=== PATIENT | male | born 1955 | race Caucasian/White ===

== ENCOUNTER 2017-02-25 06:05 | Emergency (ER) | payer OTHER ==
[~2017-02-25] VITALS: Ht 182.9 cm; Wt 121.8 kg
[~2017-02-25 06:05] MED LIST: ABL10 PO; ALPR-411 PO; CARB200T PO; EFFSR150 PO; ENAL10TA PO; SIMV20TA2 PO; ZNTT/150 PO
[2017-02-25 06:08] VITALS: TEMP 36.7; Ht 182.9 cm; Wt 121.8 kg
[2017-02-25] MEDS ORDERED: SODIUM CHLORIDE 0.9% 1000ML 1,000 ML IV STA (06:14)
[2017-02-25] MEDS ORDERED: ONDANSETRON INJ 2 MG/ML 2 ML VIAL IV STA (06:14)
[2017-02-25 06:20] VITALS: O2SAT 95
--- NOTE | 2017-02-25 06:20 | EMERGENCY ROOM VISIT NOTE ---
History Report prepared by Valeria: Benedicto Dover Under the Supervision of: Dr. Patrice Reese M.D. First contact with patient: 06:08 Chief Complaint: OTHER COMPLAINT Stated Complaint: NAUSEA/VOMITING History of Present Illness The patient is a 61 year old male who presents to the Emergency Room with complaints of nausea that began a couple of days ago. 5 days ago, the patient ran out of his psychiatric medications. He could not get them refilled because he could not get to his appointment, and his psychiatrist could not refill them for liability reasons. Because of the nausea, he has not been eating much over these recent days. He has been having episodes of vomiting associated with his nausea. He is having some mild abdominal pain with one episode of possible hematemesis vs tea that he had been drinking. He has a past medical history of seizures--he takes Tegretol regularly for his seizures. He also has a history of hypertension. He notes that he had thought about suicide a couple of days ago , but he did not follow through with or make a plan. He states if he gets to his appointment and medications, he will not need further mental health treatment. He denies any other symptoms. Of note, the patient has been taking all of his other meds--he only ran out of his psychiatric meds. Source of History: patient Onset: a couple of days ago Position: other (GI) Symptom Intensity: moderate Quality: other (Nausea) Timing: constant Associated Symptoms: + vomiting, + abdominal pain Note: He denies any other abnormal symptoms. Review of Systems See HPI for pertinent positives & negatives. A total of 10 systems reviewed and were otherwise negative. Past Medical & Surgical Medical Problems: (1) Heart disease (2) High blood pressure Family History Cancer FHx: gallbladder disease Heart disease Social History Smoking Status: Current Every Day Smoker Alcohol Use: none Drug Use: none Marital Status: single Occupation Status: unemployed Current/Historical Medications Scheduled Aripiprazole (Abilify), 10 MG PO DAILY Carbamazepine (Tegretol), 600 MG PO AMPM Enalapril Maleate (Vasotec), 10 MG PO DAILY Ranitidine (Zantac), 150 MG PO AMHS Simvastatin (Zocor), 20 MG PO QPM Venlafaxine Hcl (Venlafaxine Hcl Er), 150 MG PO DAILY Scheduled PRN Alprazolam (Xanax), 0.5 MG PO BID PRN for Anxiety Allergies Coded Allergies: Loxapine (Verified Allergy, Unknown, 02/25/17) Uncoded Allergies: ANTIPSYCHOTICS (Allergy, Unknown, 08/24/09) Physical Exam Vital Signs Date Time Temp Pulse Resp B/P (MAP) Pulse Ox O2 Delivery O2 Flow Rate FiO2 02/25/17 06:20 95 Room Air 02/25/17 06:11 83 02/25/17 06:08 36.7 82 18 177/102 97 Room Air Physical Exam GENERAL: Patient is in no acute distress. HEENT: No acute trauma, normocephalic atraumatic, mucous membranes moist, no nasal congestion, no scleral icterus. NECK: No stridor, no adenopathy, no meningismus, trachea is midline. LUNGS: Clear to auscultation bilaterally, no wheeze, no rhonchi, breath sounds equal. HEART: Without murmurs gallops or rubs, regular rate and rhythm. ABDOMEN: Soft, nontender, bowel sounds positive, no hernias, no peritonitis. EXTREMITIES: No cyanosis or edema, full range of motion of all the joints without pain or difficulty, no signs for acute trauma. NEUROLOGIC: Oriented x 3, no acute motor or sensory deficits, no focal weakness. SKIN: No rash, no jaundice, no diaphoresis. PSYCH: Cooperative and voluntary. Denies active suicidal ideation or plan. Normal affect. Medical Decision & Procedures ER Provider Diagnostic Interpretation: Radiology results as stated below per my review and radiologist interpretation: CHEST X-RAY 1 VIEW: No mediastinal widening, pneumonia, or pneumothorax. No free air. He has what appears to be a hiatal hernia. Per me Laboratory Results Test 02/25/17 06:30 Laboratory results reviewed by me. Medications Administered Medications (Trade) Dose Ordered Sig/Jong Route Start Time Stop Time Status Last Admin Dose Admin Ondansetron HCl (Zofran Inj) 4 mg NOW STAT IV 02/25/17 06:14 02/25/17 06:16 DC 02/25/17 06:28 4 MG Sodium Chloride 1,000 ml @ 999 mls/hr Q1H1M STAT IV 02/25/17 06:14 02/25/17 07:14 02/25/17 06:28 999 MLS/HR ECG Indication: nausea Rate (beats per minute): 78 Rhythm: sinus rhythm Findings: 1st degree AV block, no acute ischemic change, no ectopy, other (Old inferior infarct) ED Course 0608: The patient was evaluated in room A2. A complete history and physical exam was performed. 0614: Ordered Sodium Chloride 1000 ml @ 999 mls/hr IV, Zofran Inj 4 mg IV 06: Ordered Venlafaxine HCl 150 mg PO, Zocor Tab 20 mg PO, Vasotec Tab 10 mg PO, Abilify Tab 10 mg PO 0630: Ordered Ranitidine HCl 150 mg PO, Tegretol Tab 600 mg PO 0700: The patient was signed out to Dr. Balderas at the change in shifts. Medical Decision Differential diagnosis includes but is not limited to dehydration, electrolyte imbalance, anemia, missed medications, infection, and GI bleeding. The patient presents to the emergency room by ambulance for vomiting. He states he has not taken his psychiatric medications in 4 days and believes this has led to his current issue. He does not have any real abdominal pain. He has not had fever or chills, cough or cold. He has no plan to harm himself. He does not want to stay in the psychiatric portion of the hospital. The patient would like his normal psychiatric meds and something to eat. He has an appointment later today at around 10:30 to be seen by psychiatry. He would like to stay in the emergency room and then go to the psychiatric appointment. The patient admits to some dark emesis after he drank tea, he was not sure if the dark vomit may have been bloody vomitus or possibly just regurgitated tea. On exam, the patient's lungs are clear, his heart is without any murmurs. The abdomen is soft and nontender. He is not febrile or toxic in appearance. Some basic laboratory tests and a chest x-ray were ordered. Chest film shows a hiatal hernia, no pneumonia or pneumothorax. There is no free air. Laboratory tests are pending. 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 The patient was ordered for all of his typical morning medications. He received IV Zofran and IV saline. At this point, the case is being assumed by Dr. Balderas, he has assumed care at the change of shift. Please see his notes for the laboratory results and the disposition/plan. If the patient does well, if his workup is benign, I suspect he can be discharged to see his psychiatrist as scheduled later this morning. Medication Reconcilliation Current Medication List: was personally reviewed by me Blood Pressure Screening Patient's blood pressure: Elevated blood pressure Blood pressure disposition: Referred to PCP Impression Primary Impression: Vomiting Additional Impression: Noncompliance with medication regimen Scribe Attestation The scribe's documentation has been prepared under my direction and personally reviewed by me in its entirety. I confirm that the note above accurately reflects all work, treatment, procedures, and medical decision making performed by me. Departure Information Dispostion Still a Patient Referrals Noe Barros M.D. (PCP) Patient Instructions My [facility] Problem Qualifiers
[2017-02-25] MEDS ORDERED: ENALAPRIL MALEATE 10 MG TAB PO STA (06:29)
[2017-02-25] MEDS ORDERED: ARIPIprazole TAB 10 MG TAB PO STA (06:29)
[2017-02-25] MEDS ORDERED: SIMVASTATIN 20 MG TAB PO STA (06:29)
[2017-02-25] MEDS ORDERED: VENLAFAXINE HCL XR 150 MG CAPXR PO STA (06:29)
[2017-02-25] MEDS ORDERED: CARBAMAZEPINE 200 MG TAB PO ONE (06:30)
[2017-02-25] MEDS ORDERED: RANITIDINE HCL 150 MG TAB PO ONE (06:30)
[2017-02-25] MEDS ORDERED: VENL150T33 PO (06:41)
--- NOTE | 2017-02-25 06:44 | DIAGNOSTIC IMAGING REPORT ---
CHEST ONE VIEW PORTABLE CLINICAL HISTORY: EVALUATE ALTERED MENTAL STATUS/WEAKNESS COMPARISON STUDY: No previous studies for comparison. FINDINGS: Mild cardia megaly. Fixed hernia. Mild fullness mid to superior mediastinum possibly technical. Lungs are clear. IMPRESSION: Mild cardiomegaly. Hiatal hernia. The above report was generated using voice recognition software. It may contain grammatical, syntax or spelling errors. Electronically signed by: Peterson Alexandra M.D. 02/25/2017 6:43 AM Dictated Date/Time: 02/25/2017 6:42 AM
[2017-02-25 06:47] LABS: BASO % 0.2 %; BASO ABS # 0.01 K/uL (0-0.2); COMPLETE YES; EOS % 0.4 %; HEMATOCRIT 36.7 % (42-52); IG% 0.2 %; LYMPH % 8.2 %; LYMPH ABS # 0.44 K/uL (1.2-3.4); MEAN CELL VOLUME 95.6 fL (80-100); MEAN CORPUSCULAR HEMOGLOBIN 34.1 pg (25-34); MEAN CORPUSCULAR HGB CONC 35.7 g/dl (32-36); MEAN PLATELET VOLUME 9.2 fL (7.4-10.4); MONO % 6.5 %; NEUT % 84.5 %; PLATELET COUNT 169 K/uL (130-400); RED BLOOD COUNT 3.84 M/uL (4.7-6.1); WHITE BLOOD COUNT 5.36 K/uL (4.8-10.8)
--- NOTE | 2017-02-25 07:01 | EMERGENCY ROOM VISIT NOTE ---
History First contact with patient: 07:07 Chief Complaint: NAUSEA Stated Complaint: NAUSEA/VOMITING Nursing Triage Summary: see triage note History of Present Illness The patient is a 61 year old male who presents to the Emergency Room with complaints of nausea, vomiting and not taking his psych medications. Patient was signed out to me following being completely evaluated by Dr. Reese. Per signout this man presented to the ER for nausea and vomiting. He has no abdominal pain. He was anxious and concerned about getting back on track with taking his psych medications. Dr. Reese gave him all his medications. He was able to eat without difficulty. He does admit that he vomited tea which was dark in nature. On my exam he has a completely benign abdomen. He has not complaints and absolutely no tenderness on exam. He wants to have a Review of Systems See HPI for pertinent positives & negatives. A total of 10 systems reviewed and were otherwise negative. Past Medical/Surgical History Medical Problems: (1) Heart disease (2) High blood pressure Family History Cancer FHx: gallbladder disease Heart disease Social History Smoking Status: Current Every Day Smoker Alcohol Use: none Drug Use: none Marital Status: single Occupation Status: unemployed Current/Historical Medications Scheduled Aripiprazole (Abilify), 10 MG PO DAILY Carbamazepine (Tegretol), 600 MG PO AMPM Enalapril Maleate (Vasotec), 10 MG PO DAILY Ranitidine (Zantac), 150 MG PO AMHS Simvastatin (Zocor), 20 MG PO QPM Venlafaxine Hcl (Venlafaxine Hcl Er), 150 MG PO DAILY Scheduled PRN Alprazolam (Xanax), 0.5 MG PO BID PRN for Anxiety Physical Exam Vital Signs Date Time Temp Pulse Resp B/P (MAP) Pulse Ox O2 Delivery O2 Flow Rate FiO2 02/25/17 08:01 89 18 179/103 99 Room Air 02/25/17 07:29 88 18 178/106 99 Room Air 02/25/17 06:20 95 Room Air 02/25/17 06:11 83 02/25/17 06:08 36.7 82 18 177/102 97 Room Air Physical Exam GENERAL: Disheveled, no acute distress nontoxic EYE EXAM: normal conjunctiva OROPHARYNX: no exudate, no erythema, lips, buccal mucosa, and tongue normal and mucous membranes are moist NECK: supple, no nuchal rigidity, no adenopathy, non-tender LUNGS: Clear to auscultation. Normal chest wall mechanics HEART: no murmurs, S1 normal and S2 normal ABDOMEN: abdomen soft, non-tender, normo-active bowel sounds, no masses, no rebound or guarding. UPPER EXTREMITIES: upper extremities are grossly normal. LOWER EXTREMITIES: No pitting edema. NEURO EXAM: Normal sensorium Medical Decision & Procedures Laboratory Results 02/25/17 06:30 Red Blood Count 3.84, Mean Corpuscular Volume 95.6, Mean Corpuscular Hemoglobin 34.1, Mean Corpuscular Hemoglobin Concent 35.7, Mean Platelet Volume 9.2, Neutrophils (%) (Auto) 84.5, Lymphocytes (%) (Auto) 8.2, Monocytes (%) (Auto) 6.5, Eosinophils (%) (Auto) 0.4, Basophils (%) (Auto) 0.2, Neutrophils # (Auto) 4.53, Lymphocytes # (Auto) 0.44, Monocytes # (Auto) 0.35, Eosinophils # (Auto) 0.02, Basophils # (Auto) 0.01 02/25/17 06:30 Test 02/25/17 06:30 02/25/17 07:28 White Blood Count 5.36 K/uL (4.8-10.8) Red Blood Count 3.84 M/uL (4.7-6.1) Hemoglobin 13.1 g/dL (14.0-18.0) Hematocrit 36.7 % (42-52) Mean Corpuscular Volume 95.6 fL (80-100) Mean Corpuscular Hemoglobin 34.1 pg (25-34) Mean Corpuscular Hemoglobin Concent 35.7 g/dl (32-36) Platelet Count 169 K/uL (130-400) Mean Platelet Volume 9.2 fL (7.4-10.4) Neutrophils (%) (Auto) 84.5 % Lymphocytes (%) (Auto) 8.2 % Monocytes (%) (Auto) 6.5 % Eosinophils (%) (Auto) 0.4 % Basophils (%) (Auto) 0.2 % Neutrophils # (Auto) 4.53 K/uL (1.4-6.5) Lymphocytes # (Auto) 0.44 K/uL (1.2-3.4) Monocytes # (Auto) 0.35 K/uL (0.11-0.59) Eosinophils # (Auto) 0.02 K/uL (0-0.5) Basophils # (Auto) 0.01 K/uL (0-0.2) RDW Standard Deviation 45.7 fL (36.4-46.3) RDW Coefficient of Variation 13.2 % (11.5-14.5) Immature Granulocyte % (Auto) 0.2 % Immature Granulocyte # (Auto) 0.01 K/uL (0.00-0.02) Anion Gap 6.0 mmol/L (3-11) Est Creatinine Clear Calc Drug Dose 124.6 ml/min Estimated GFR () 109.8 Estimated GFR (Non- 94.7 BUN/Creatinine Ratio 9.2 (10-20) Calcium Level 8.1 mg/dl (8.5-10.1) Total Bilirubin 0.6 mg/dl (0.2-1) Aspartate Amino Transf (AST/SGOT) 12 U/L (15-37) Alanine Aminotransferase (ALT/SGPT) 26 U/L (12-78) Alkaline Phosphatase 109 U/L (45-117) Total Protein 6.7 gm/dl (6.4-8.2) Albumin 3.7 gm/dl (3.4-5.0) Globulin 3.0 gm/dl (2.5-4.0) Albumin/Globulin Ratio 1.2 (0.9-2) Thyroid Stimulating Hormone (TSH) 1.820 uIu/ml (0.300-4.500) Carbamazepine (Tegretol) Level 12.9 mcg/ml (4-12) Urine Color DK YELLOW Urine Appearance CLOUDY (CLEAR) Urine pH 5.0 (4.5-7.5) Urine Specific [place] 1.029 (1.000-1.030) Urine Protein 1+ (NEG) Urine Glucose (UA) NEG (NEG) Urine Ketones TRACE (NEG) Urine Occult Blood TRACE (NEG) Urine Nitrite NEG (NEG) Urine Bilirubin NEG (NEG) Urine Urobilinogen NEG (NEG) Urine Leukocyte Esterase TRACE (NEG) Urine WBC (Auto) 1-5 /hpf (0-5) Urine RBC (Auto) 5-10 /hpf (0-4) Urine Hyaline Casts (Auto) 10-30 /lpf (0-5) Urine Epithelial Cells (Auto) 20-30 /lpf (0-5) Urine Bacteria (Auto) NEG (NEG) Medications Administered Medications (Trade) Dose Ordered Sig/Jong Route Start Time Stop Time Status Last Admin Dose Admin Ondansetron HCl (Zofran Inj) 4 mg NOW STAT IV 02/25/17 06:14 02/25/17 06:16 DC 02/25/17 06:28 4 MG Sodium Chloride 1,000 ml @ 999 mls/hr Q1H1M STAT IV 02/25/17 06:14 02/25/17 07:14 DC 02/25/17 06:28 999 MLS/HR Aripiprazole (Abilify Tab) 10 mg NOW STAT PO 02/25/17 06:29 02/25/17 06:33 DC 02/25/17 06:48 10 MG Carbamazepine (Tegretol Tab) 600 mg NOW ONCE PO 02/25/17 06:30 02/25/17 06:34 DC 02/25/17 06:47 600 MG Enalapril Maleate (Vasotec Tab) 10 mg NOW STAT PO 02/25/17 06:29 02/25/17 06:33 DC 02/25/17 06:47 10 MG Ranitidine HCl (zANTac TAB) 150 mg NOW ONCE PO 02/25/17 06:30 02/25/17 06:34 DC 02/25/17 06:47 150 MG Simvastatin (Zocor Tab) 20 mg NOW STAT PO 02/25/17 06:29 02/25/17 06:34 ID 02/25/17 06:48 20 MG Venlafaxine HCl (effeXOR EXTENDED REL CAP) 150 mg NOW STAT PO 02/25/17 06:29 02/25/17 06:34 DC 02/25/17 06:47 150 MG Potassium Chloride (Klor-Con M10) 40 meq NOW STAT PO 02/25/17 07:07 02/25/17 07:09 DC 02/25/17 07:28 40 MEQ ED Course Patient is a 61-year-old male who was signed out to me by Dr. Reese prior to results of lab work. The current and tentative plan per Dr. Reese is to observe this gentleman until he is able to obtain a ride to see a psychiatrist at 10:30. On my exam patient has absolutely no abdominal tenderness. CBC was unremarkable. Medical Decision Differential diagnoses includes but is not limited to gastritis, peptic ulcer disease, GERD, gallbladder disease, pancreatitis, small bowel obstruction, acute coronary syndrome, pericarditis, ischemic bowel, irritable bowel disease, irritable bowel syndrome, appendicitis, diverticulitis, malignancy, hernia, urinary tract infection, torsion, /ectopic (if female), perforation, trauma, infectious. Patient is a 61-year-old male who was signed out to me by Dr. Reese prior to results of lab work. The current and tentative plan per Dr. Reese is to observe this gentleman until he is able to obtain a ride to see a psychiatrist at 10:30. On my exam patient has absolutely no abdominal tenderness. History of previous cholecystectomy and appendectomy. CBC was unremarkable. BMP shows K of 3.1. K was repeated. UA was unremarkable for infection. Tegretol was slightly elevated at 12.9. He are a took his morning dose of this medication today. Discussed with Dr. Ascencio from [facility] neurology. He recommends following up with them as an outpatient for dosing adjustments with Vee Rose as she is the one who follows this patient. Patient denies any double vision. I do not believe that Tegretol as the cause of the symptoms especially since he is keeping liquids and food down at this time. Discussed with Pt concerning signs and symptoms to watch out for. Pt was instructed to follow up with their PCP and discussed with the patient their option to return to the ED at anytime for persistent or worsening symptoms. The appropriate anticipatory guidance and out-patient management, including indications for return to the emergency department, were explained at length to the patient and understood. Consults Time Called: 720 Consulting Physician: Dr. Ascencio Recommends follow-up as an outpatient within 24 hours for dosing adjustments. Impression Primary Impression: Vomiting Additional Impressions: Noncompliance with medication regimen Hypokalemia Elevated Tegretol level Departure Information Dispostion Still a Patient Referrals Noe Barros M.D. (PCP) Patient Instructions My [facility] Problem Qualifiers Primary Impression: Vomiting Vomiting type: unspecified Vomiting Intractability: unspecified Nausea presence: with nausea Qualified Codes: R11.2 - Nausea with vomiting, unspecified
[2017-02-25 07:04] LABS: BUN/CREATININE RATIO 9.2 (10-20); CALCIUM 8.1 mg/dl (8.5-10.1); CREATININE 0.85 mg/dl (0.60-1.40); POTASSIUM 3.1 mmol/L (3.5-5.1)
[2017-02-25] MEDS ORDERED: POTASSIUM CHLORIDE 10 MEQ TABCR PO STA (07:07)
[2017-02-25 07:15] LABS: ALB/GLOB RATIO 1.2 (0.9-2); THYROID STIMULATING HORMONE 1.82 uIu/ml (0.300-4.500)
[2017-02-25 07:52] LABS: URINE APPEARANCE CLOUDY (CLEAR); URINE COLOR DK YELLOW; URINE EPITHELIAL CELL AUTO 20-30 /lpf (0-5); URINE NITRITE NEG (NEG); URINE SPECIFIC GRAVITY 1.029 (1.000-1.030); UROBILINOGEN NEG (NEG); ZZUR CULT IF INDIC CLEAN CATCH NO
[2017-02-25 08:00] LABS: MANUAL MICROSCOPIC REQUIRED? NO; REVIEW REQ? NO; URINE BILIRUBIN NEG (NEG)
[2017-02-25 08:01] VITALS: BP 179/103; PULSE 89; O2SAT 99
== END 2017-02-25 08:18 | disposition home or self-care (01) ==
LOC: EDBD 06:05 → C.EDA 06:06
DX: R11.2 Nausea with vomiting, unspecified (principal); Z91.14 Patient's other noncompliance with medication regimen; E87.6 Hypokalemia; I51.9 Heart disease, unspecified; I10 Essential (primary) hypertension; F17.200 Nicotine dependence, unspecified, uncomplicated

== ENCOUNTER → 2017-04-01 | Outpatient (CLI) | payer OTHER ==
[~2017-04-01] MED LIST changes: -EFFSR150 PO; +VENL150T33 PO
[2017-04-01 18:02] LABS: BASO % 0.4 %; BASO ABS # 0.02 K/uL (0-0.2); COMPLETE YES; EOS % 0.6 %; HEMATOCRIT 39.4 % (42-52); IG% 0.7 %; LYMPH % 14.9 %; MEAN CELL VOLUME 99.2 fL (80-100); MEAN CORPUSCULAR HEMOGLOBIN 33.8 pg (25-34); MEAN PLATELET VOLUME 11.2 fL (7.4-10.4); MONO % 13.6 %; NEUT % 69.8 %; PLATELET COUNT 242 K/uL (130-400); RED BLOOD COUNT 3.97 M/uL (4.7-6.1); WHITE BLOOD COUNT 5.37 K/uL (4.8-10.8)
[2017-04-01 18:13] LABS: ALT/SGPT 22 U/L (12-78); BLOOD UREA NITROGEN 14 mg/dl (7-18); BUN/CREATININE RATIO 17.3 (10-20); CALCIUM 8.8 mg/dl (8.5-10.1); CARBON DIOXIDE 30 mmol/L (21-32); CHLORIDE 108 mmol/L (98-107); CHOLESTEROL 168 mg/dl (0-200); CREATININE 0.82 mg/dl (0.60-1.40); GLUCOSE 93 mg/dl (70-99); POTASSIUM 4.1 mmol/L (3.5-5.1); SODIUM 140 mmol/L (136-145); TRIGLYCERIDES 208 mg/dl (0-150); VERY LOW DENSITY LIPOPROT CALC 42 mg/dl
[2017-04-01 18:21] LABS: ALB/GLOB RATIO 1.2 (0.9-2); ALKALINE PHOSPHATASE 100 U/L (45-117); AST/SGOT 14 U/L (15-37); HDL CHOLESTEROL 56 mg/dl; LDL CHOLESTEROL CALCULATED 70 mg/dl
== END | disposition home or self-care (01) ==
LOC: C.LABBFT 13:56
PROVIDERS: ATTEND Physician Assistant Medical
DX: E78.5 Hyperlipidemia, unspecified (principal); E55.9 Vitamin D deficiency, unspecified

== ENCOUNTER 2017-09-30 16:09 | Observation (INO) | payer OTHER ==
[~2017-09-30] VITALS: Ht 180.3 cm; Wt 132.0 kg
[~2017-09-30 16:09] MED LIST changes: +RANI150T85 PO; -ZNTT/150 PO
[2017-09-30 16:29] LABS: BASO % 0.2 %; BASO ABS # 0.02 K/uL (0-0.2); EOS % 1.3 %; EOS ABS # 0.11 K/uL (0-0.5); HEMATOCRIT 39.1 % (42-52); HEMOGLOBIN 13.6 g/dL (14.0-18.0); IG# 0.02 K/uL (0.00-0.02); LYMPH % 11.6 %; LYMPH ABS # 1.02 K/uL (1.2-3.4); MEAN CORPUSCULAR HEMOGLOBIN 35.1 pg (25-34); MEAN CORPUSCULAR HGB CONC 34.8 g/dl (32-36); MEAN PLATELET VOLUME 9.8 fL (7.4-10.4); MONO % 12.1 %; MONO ABS # 1.06 K/uL (0.11-0.59); NEUT % 74.6 %; NEUT ABS # 6.56 K/uL (1.4-6.5); PLATELET COUNT 219 K/uL (130-400); RED CELL DISTRIBUTION WIDTH CV 13.2 % (11.5-14.5); RED CELL DISTRIBUTION WIDTH SD 48.7 fL (36.4-46.3); WHITE BLOOD COUNT 8.79 K/uL (4.8-10.8)
--- NOTE | 2017-09-30 16:29 | DIAGNOSTIC IMAGING REPORT ---
SINGLE VIEW CHEST CLINICAL HISTORY: Atypical chest pain. FINDINGS: An AP, portable, upright chest radiograph is compared to study dated 02/25/2017. The examination is degraded by portable technique and patient rotation. The heart is enlarged. The pulmonary vasculature is noncongested. A large hiatal hernia is identified. The lungs and pleural spaces are clear. No pneumothorax is seen. The bony thorax is grossly intact. IMPRESSION: 1. Cardiomegaly with no acute cardiopulmonary abnormality. 2. Hiatal hernia. Electronically signed by: Patrice Leonard M.D. 09/30/2017 4:27 PM Dictated Date/Time: 09/30/2017 4:27 PM
[2017-09-30 16:51] LABS: CALCIUM 8.2 mg/dl (8.5-10.1); CREATININE 1.01 mg/dl (0.60-1.40); POTASSIUM 3.8 mmol/L (3.5-5.1)
[2017-09-30] MEDS ORDERED: OPTIRAY 320 IV PRN (17:00)
--- NOTE | 2017-09-30 17:41 | DIAGNOSTIC IMAGING REPORT ---
CT ANGIOGRAM OF THE CHEST CLINICAL HISTORY: Atypical chest pain. COMPARISON STUDY: Chest x-ray dated 09/30/2017. TECHNIQUE: Following the IV administration of 93 cc of Optiray 320, CT angiogram of the chest was performed from the upper abdomen to the thoracic inlet utilizing the pulmonary embolus protocol. Images are reviewed in the axial, sagittal, and coronal planes. 3-D MIPS images are created and assessed. IV contrast was administered without complication. A dose lowering technique was utilized adhering to the principles of ALARA. CT DOSE: 708.11 mGy.cm FINDINGS: Thyroid: Imaged portions of the thyroid gland are normal in size and attenuation. Thoracic aorta: The thoracic aorta is normal in caliber and demonstrates standard 3-vessel arch anatomy. No dissection is seen. Pulmonary vasculature: The pulmonary trunk is normal in caliber. There are no filling defects identified in main, lobar, or segmental pulmonary branches to suggest pulmonary embolus. Heart: The heart is enlarged and without pericardial effusion. There are coronary artery calcifications. Lungs and pleural spaces: Evaluation of lung parenchyma is degraded by motion artifact. No airspace consolidation or pleural effusion is identified. The trachea and central airways are clear. Mediastinum: There is no mediastinal lymphadenopathy. Vani: Clear. Axillae: There is no axillary lymphadenopathy. Upper abdomen: There is a large hiatal hernia, with the majority the stomach located in the thoracic cavity. A 1.5 cm right adrenal nodule meets CT criteria for a fat-containing adenoma. Skeletal structures: The skeletal structures are osteopenic. Degenerative change is seen throughout the thoracic spine. No lytic or blastic bony lesions are seen. IMPRESSION: 1. There is no evidence of pulmonary embolus in the main, lobar, or segmental pulmonary arteries. 2. Cardiomegaly. 3. Large hiatal hernia. 4. Lungs are clear. 5. Additional findings as above. Electronically signed by: Patrice Leonard M.D. 09/30/2017 5:40 PM Dictated Date/Time: 09/30/2017 5:26 PM
--- NOTE | 2017-09-30 18:46 | History and Physical ---
History & Physical Date & Time of Service: Sep 30, 2017 at 18:41 Chief Complaint: Chest Pain Primary Care Physician: Noe Barros M.D. History of Present Illness Source: patient This is a 62 yo M with a PMHx of HTN, HLD, vitamin D deficiency and depression and remote smoking hx quit 1 year ago. The patient notes that he had acute onset of chest pain after racing thoughts/anxiety this morning around 11 AM. He says at that time he was sitting down trying to take a nap. At that time the patient called EMS, reports feeling much better after that point in time. He does he was administered 4 baby aspirin and 1 nitroglycerin spray and admit to feeling lightheaded and dizzy after the administration of nitroglycerin but that this quickly resolved. He denies any chest pain or pressure since that timeframe. The pt is speaking very rapidly during my interview- patient tells me that he has been off his psychiatric medication including Abilify 10 mg daily, Xanax 0.5 mg BID prn, and Effexor 150 mg QAM for about 2 weeks. The patient foll ows with Dr. Melendez in [place] but has been unable to keep his appointments due to not having a car anymore. He lives at home by himself. The patient notes that he has not had depressive symptoms over these past 2 weeks and chose to go off his medications on his own. He is also seeking a new psychiatrist because " Dr. Knapp will not fill my meds since I haven't made it to the appointments". He denies any homicidal or suicidal ideations. EKG reviewed, NRS no ST wave inversions or signs of ischemia Troponin initially is negative. D-dimer was elevated above 450, CT PE was completed by is negative. The patient does have a large hiatal hernia which was noted on chest x-ray and CT. Past Medical/Surgical History Medical Problems: (1) Chest pain (2) Depression (3) HLD (hyperlipidemia) (4) HTN (hypertension) (5) Noncompliance with medication regimen Family History Cancer FHx: gallbladder disease Heart disease Social History Smoking Status: Former Smoker Smokeless Tobacco Use: Yes Alcohol Use: occasionally Drug Use: none Marital Status: single Housing status: lives alone Occupational Status: unemployed Immunizations History of Influenza Vaccine: No History of Tetanus Vaccine?: Yes Tetanus Immunization Date: Dec 22, 2004 History of Pneumococcal: No History of Hepatitis B Vaccine: No Allergies Coded Allergies: Loxapine (Verified Allergy, Unknown, 09/30/17) Uncoded Allergies: ANTIPSYCHOTICS (Allergy, Unknown, 08/24/09) Home Medications Scheduled Aripiprazole (Abilify), 10 MG PO DAILY Carbamazepine (Tegretol), 600 MG PO AMPM Enalapril Maleate (Vasotec), 10 MG PO DAILY Ranitidine (Zantac), 150 MG PO AMHS Simvastatin (Zocor), 20 MG PO QPM Venlafaxine Hcl (Venlafaxine Hcl Er), 150 MG PO DAILY Scheduled PRN Alprazolam (Xanax), 0.5 MG PO BID PRN for Anxiety Review of Systems Constitutional: No fever, sweats or chills Eyes: No diplopia, no worsening or blurred vision ENT: normal hearing, no trouble swallowing Respiratory: No cough, sputum, dyspnea at rest or on exertion Cardiovascular: See HPI Abdomen: No pain, nausea, vomiting, diarrhea or constipation Musculoskeletal: No joint pain, calf pain, swelling Neurologic: No weakness, numbness/tingling, or balance problems Psychiatric: No anxiety + hx of depression, denies suicidal or homicidal ideations, see HPI Skin: No rash or itch Physical Exam Vital Signs Date Time Temp Pulse Resp B/P (MAP) Pulse Ox O2 Delivery O2 Flow Rate FiO2 09/30/17 16:31 95 Room Air 09/30/17 16:31 95 09/30/17 16:31 36.8 83 20 142/88 95 Room Air 09/30/17 16:17 85 General: awake, alert, no apparent distress, morbid obesity, unkempt appearance , rapid speech Head: Normocephalic, atraumatic ENT: PERRL, EOMI, no pharyngeal exudate, mucous membranes moist Chest: Nontender to palpation, clear to auscultation, on room air, no adventitious breath sounds Cardiac: Regular rate and rhythm, no murmur, JVD difficult to assess due to body habitus, normal peripheral pulses, good capillary refill Abdominal: NABS x 4 quadrants, soft, nontender to palpation, no rebound, guarding or tenderness Extremities: Normal inspection, no peripheral edema or erythema, calfs nontender to palpation Psych: Elevated mood, rapid speech, appears slightly anxious Neuro: AAO x 3, strength intact bilaterally and related 5/5, no motor deficits, speech is clear, no peripheral sensory deficits Skin: multiple lesions which are open on abdomen, multiple areas of scarring over extremities Diagnostics Laboratory Results Results Past 24 Hours Test 09/30/17 16:00 09/30/17 16:37 Range/Units White Blood Count 8.79 4.8-10.8 K/uL Red Blood Count 3.87 4.7-6.1 M/uL Hemoglobin 13.6 14.0-18.0 g/dL Hematocrit 39.1 42-52 % Mean Corpuscular Volume 101.0 80-100 fL Mean Corpuscular Hemoglobin 35.1 25-34 pg Mean Corpuscular Hemoglobin Concent 34.8 32-36 g/dl Platelet Count 219 130-400 K/uL Mean Platelet Volume 9.8 7.4-10.4 fL Neutrophils (%) (Auto) 74.6 % Lymphocytes (%) (Auto) 11.6 % Monocytes (%) (Auto) 12.1 % Eosinophils (%) (Auto) 1.3 % Basophils (%) (Auto) 0.2 % Neutrophils # (Auto) 6.56 1.4-6.5 K/uL Lymphocytes # (Auto) 1.02 1.2-3.4 K/uL Monocytes # (Auto) 1.06 0.11-0.59 K/uL Eosinophils # (Auto) 0.11 0-0.5 K/uL Basophils # (Auto) 0.02 0-0.2 K/uL RDW Standard Deviation 48.7 36.4-46.3 fL RDW Coefficient of Variation 13.2 11.5-14.5 % Immature Granulocyte % (Auto) 0.2 % Immature Granulocyte # (Auto) 0.02 0.00-0.02 K/uL Sodium Level 137 136-145 mmol/L Potassium Level 3.8 3.5-5.1 mmol/L Chloride Level 105 98-107 mmol/L Carbon Dioxide Level 22 21-32 mmol/L Anion Gap 10.0 3-11 mmol/L Blood Urea Nitrogen 13 7-18 mg/dl Creatinine 1.01 0.60-1.40 mg/dl Est Creatinine Clear Calc Drug Dose 100.8 ml/min Estimated GFR () 92.6 Estimated GFR (Non- 79.9 BUN/Creatinine Ratio 12.6 10-20 Random Glucose 91 70-99 mg/dl Calcium Level 8.2 8.5-10.1 mg/dl Bedside D-Dimer > 450 0-450 ng/mlFEU Bedside Troponin I < 0.030 0-0.045 ng/ml Diagnostic Radiology CT ANGIOGRAM OF THE CHEST CLINICAL HISTORY: Atypical chest pain. COMPARISON STUDY: Chest x-ray dated 09/30/2017. TECHNIQUE: Following the IV administration of 93 cc of Optiray 320, CT angiogram of the chest was performed from the upper abdomen to the thoracic inlet utilizing the pulmonary embolus protocol. Images are reviewed in the axial, sagittal, and coronal planes. 3-D MIPS images are created and assessed. IV contrast was administered without complication. A dose lowering technique was utilized adhering to the principles of ALARA. CT DOSE: 708.11 mGy.cm FINDINGS: Thyroid: Imaged portions of the thyroid gland are normal in size and attenuation. Thoracic aorta: The thoracic aorta is normal in caliber and demonstrates standard 3-vessel arch anatomy. No dissection is seen. Pulmonary vasculature: The pulmonary trunk is normal in caliber. There are no filling defects identified in main, lobar, or segmental pulmonary branches to suggest pulmonary embolus. Heart: The heart is enlarged and without pericardial effusion. There are coronary artery calcifications. Lungs and pleural spaces: Evaluation of lung parenchyma is degraded by motion artifact. No airspace consolidation or pleural effusion is identified. The trachea and central airways are clear. Mediastinum: There is no mediastinal lymphadenopathy. Vani: Clear. Axillae: There is no axillary lymphadenopathy. Upper abdomen: There is a large hiatal hernia, with the majority the stomach located in the thoracic cavity. A 1.5 cm right adrenal nodule meets CT criteria for a fat-containing adenoma. Skeletal structures: The skeletal structures are osteopenic. Degenerative change is seen throughout the thoracic spine. No lytic or blastic bony lesions are seen. IMPRESSION: 1. There is no evidence of pulmonary embolus in the main, lobar, or segmental pulmonary arteries. 2. Cardiomegaly. 3. Large hiatal hernia. 4. Lungs are clear. 5. Additional findings as above. Electronically signed by: Patrice Leonard M.D. 09/30/2017 5:40 PM Dictated Date/Time: 09/30/2017 5:26 PM The status of this report is Signed. SINGLE VIEW CHEST CLINICAL HISTORY: Atypical chest pain. FINDINGS: An AP, portable, upright chest radiograph is compared to study dated 02/25/2017. The examination is degraded by portable technique and patient rotation. The heart is enlarged. The pulmonary vasculature is noncongested. A large hiatal hernia is identified. The lungs and pleural spaces are clear. No pneumothorax is seen. The bony thorax is grossly intact. IMPRESSION: 1. Cardiomegaly with no acute cardiopulmonary abnormality. 2. Hiatal hernia. Electronically signed by: Patrice Leonard M.D. 09/30/2017 4:27 PM Dictated Date/Time: 09/30/2017 4:27 PM The status of this report is Signed. EKG Poor data quality, interpretation may be adversely affected Normal sinus rhythm Inferior infarct (cited on or before 24-NOV-2000) Abnormal ECG When compared with ECG of 25-FEB-2017 06:20, Nonspecific T wave abnormality has replaced inverted T waves in Inferior leads Vent. rate 86 BPM SD interval 208 ms QRS duration 104 ms QT/QTc 378/452 ms P-R-T axes 40 9 35 Impression Assessment and Plan 62 yo M with a PMHx of HTN, HLD, vitamin D deficiency and depression and remote smoking hx quit 1 year ago. The patient notes that he had acute onset of chest pain after racing thoughts/anxiety this morning around 11 AM. Chest pain rule out HTN HLD - Admit to telemetry for observation - Likely due to anxiety however cannot exclude cardiac involvement with resolvent of sx with nitroglycerin and aspirin. - CXR reviewed- negative. - Ddimer elevated but CTPE negative - possible that hiatal hernia also involved with sx. - Follow serial cardiac biomarkers, initial troponin was negative, trending 2 more sets - Checking lipids, A1c morning labs - Stress exercise test if troponins are negative - checking 2D echo - Continue statin therapy, enalapril, and start baby aspirin daily. Depression ? Bipolar Type II, hypomanic episode -The patient has been off psychiatric medications for the last [address] Knapp in [place]- I believe this is [facility]. - His sx of racing thoughts, elevated mood and rapid speech may point in the direction of a hypomanic episode. - Will restart abilify at 5 mg QAM and effexor 75 mg QAM to avoid adverse effects of reinitiation of medications. The patient does not have any more medication at home, he is agreeable to restarting the medication and has been counseled upon the need to follow up with Dr. Knapp, or get a new patient appointment within next 2-3 weeks with a different psychiatrist. -Upon discharge pt should have new Rx for 2 more weeks at this dosage, and then increase to his previous doses of Abilify 10 mg and Effexor 150 mg QAM x 2 week supply. GERD - Continue ranitidine, start protonix. - CTPE showing large hiatal hernia as above. Obesity, BMI 36.6 -Diet and exercise should be encouraged upon discharge DVT ppx: Teds, scds, lovenox CODE STATUS: FULL CODE Disposition: From home, lives alone. I personally interviewed and examined the patient. I agree with history of present illness and physical exam mentioned above, I also performed my own history taking and examination. Past medical history and review of system has been obtained by myself I reviewed all pertinent labs and studies Reviewed current medications I discussed and formulated of the assessment and plan mentioned above. Please refer to the Summary mentioned below. 62-year-old man with history of hypertension, dyslipidemia, psychiatric illness who presented to the ED with intermittent chest pain currently resolved, admitted for chest pain rule out. General Appearance: not in acute distress Eyes: normal Sclerae, extraocular muscle intact ENT: hearing grossly normal Neck: supple Respiratory/Chest: normal air entry bilateral ,no respiratory distress, no accessory muscle use Cardiovascular: regular rate, rhythm, no murmur Abdomen: non tender, soft, no masses Extremities: no edema Neurologic/Psychiatric: Awake alert oriented times place and person moves all extremities sensation intact cranial nerves II-12 appear to be intact Skin: normal color, warm/dry, no rash Ricardo Hargrove MD, [facility] Res[facility] Status VTE Prophylaxis Will order VTE Prophylaxis: Yes
[2017-09-30] MEDS ORDERED: POLYETHYLENE (MIRALAX) 17 GM PACK PO PRN (19:00)
[2017-09-30] MEDS ORDERED: ALPRAZOLAM 0.5 MG TAB PO PRN (19:00)
[2017-09-30] MEDS ORDERED: ONDANSETRON INJ 2 MG/ML 2 ML VIAL IV PRN (19:00)
[2017-09-30] MEDS ORDERED: ACETAMINOPHEN 325 MG TAB PO PRN (19:00)
[2017-09-30] MEDS ORDERED: IV FLUIDS COMPLETED PRN (20:00)
[2017-09-30 20:15] VITALS: BP 150/88; PULSE 77; TEMP 37.2; O2SAT 100; Ht 180.3 cm; Wt 132.0 kg
[2017-09-30] MEDS ORDERED: SIMVASTATIN 20 MG TAB PO SCH (21:00)
[2017-09-30] MEDS: NITROGLYCERIN 2% OINTMENT 30GM TUBE EXT SCH (21:00)
--- NOTE | 2017-09-30 21:52 | EMERGENCY ROOM VISIT NOTE ---
History Report prepared by Valeria: Sandee Escobedo Under the Supervision of: Dr. Mann Johnson M.D. First contact with patient: 16:10 Chief Complaint: CHEST PAIN Stated Complaint: CHEST PAIN History of Present Illness The patient is a 62 year old male who presents to the Emergency Room brought in by EMS with complaints of intermittent chest pain that began three days ago. He notes palpitations; feeling like his heart is racing too fast. He describes the pain as stabbing. He notes it lasts for a few seconds. He does not know if anything makes the pain better. He notes movement worsens his chest pain. He notes sweating, nausea, and lightheadedness. He denies any shortness of breath, leg pain, or leg swelling. He states the medication given to him in the ambulance made him feel somewhat better. He has a history of HTN, HLD, nerve disorder, and seizure disorder. He states that he has not had a seizure since 2002. He denies any fever, abdominal pain, or cough. Source of History: patient Onset: three days ago Position: chest Quality: stabbing Timing: intermittent Modifying Factors (Worsening): exertion, movement Modifying Factors (Relieving): other (Nitroglycerin) Associated Symptoms: + nausea, No fevers, No cough, No SOB, No abdominal pain Note: He notes palpitations, sweating and lightheadedness. He denies any leg pain or leg swelling. Review of Systems See HPI for pertinent positives & negatives. A total of 10 systems reviewed and were otherwise negative. Past Medical & Surgical Medical Problems: (1) Chest pain (2) Depression (3) HLD (hyperlipidemia) (4) HTN (hypertension) Family History Cancer FHx: gallbladder disease Heart disease Social History Smoking Status: Current Every Day Smoker Alcohol Use: none Drug Use: none Marital Status: single Occupation Status: unemployed Current/Historical Medications Scheduled Aripiprazole (Abilify), 10 MG PO DAILY Carbamazepine (Tegretol), 600 MG PO AMPM Enalapril Maleate (Vasotec), 10 MG PO DAILY Ranitidine (Zantac), 150 MG PO AMHS Simvastatin (Zocor), 20 MG PO QPM Venlafaxine Hcl (Venlafaxine Hcl Er), 150 MG PO DAILY Scheduled PRN Alprazolam (Xanax), 0.5 MG PO BID PRN for Anxiety Allergies Coded Allergies: Loxapine (Verified Allergy, Unknown, 09/30/17) Uncoded Allergies: ANTIPSYCHOTICS (Allergy, Unknown, 08/24/09) Physical Exam Vital Signs Date Time Temp Pulse Resp B/P (MAP) Pulse Ox O2 Delivery O2 Flow Rate FiO2 09/30/17 18:50 72 13 98 09/30/17 18:45 72 20 102/71 Room Air 09/30/17 17:28 142/88 09/30/17 17:09 69 16 96 09/30/17 16:39 74 14 95 09/30/17 16:31 95 Room Air 09/30/17 16:31 95 09/30/17 16:31 36.8 83 20 142/88 95 Room Air 09/30/17 16:17 85 Physical Exam Constitutional: Vital signs reviewed. Eyes: Pupils are equal round reactive to light. Conjunctiva are noninjected. ENT: Pharynx is clear without erythema or exudate. Mucous membranes are moist. Neck supple without meningeal signs. Respiratory: Clear to auscultation bilaterally. Breath sounds are equal bilaterally. Cardiovascular: Regular rate and rhythm. No rubs or gallops. GI: Soft, nondistended and nontender. Bowel sounds are present. Musculoskeletal: No peripheral edema. No lower extremity tenderness. Integumentary: No cyanosis. Neurological: The patient is awake and alert. No focal deficits. Psychiatric: Normal affect. Medical Decision & Procedures ER Provider Diagnostic Interpretation: Radiology results as stated below per my review and the radiologist's interpretation: SINGLE VIEW CHEST CLINICAL HISTORY: Atypical chest pain. FINDINGS: An AP, portable, upright chest radiograph is compared to study dated 02/25/2017. The examination is degraded by portable technique and patient rotation. The heart is enlarged. The pulmonary vasculature is noncongested. A large hiatal hernia is identified. The lungs and pleural spaces are clear. No pneumothorax is seen. The bony thorax is grossly intact. IMPRESSION: 1. Cardiomegaly with no acute cardiopulmonary abnormality. 2. Hiatal hernia. Electronically signed by: Patrice Leonard M.D. 09/30/2017 4:27 PM Dictated Date/Time: 09/30/2017 4:[address] ANGIOGRAM OF THE CHEST CLINICAL HISTORY: Atypical chest pain. COMPARISON STUDY: Chest x-ray dated 09/30/2017. TECHNIQUE: Following the IV administration of 93 cc of Optiray 320, CT angiogram of the chest was performed from the upper abdomen to the thoracic inlet utilizing the pulmonary embolus protocol. Images are reviewed in the axial, sagittal, and coronal planes. 3-D MIPS images are created and assessed. IV contrast was administered without complication. A dose lowering technique was utilized adhering to the principles of ALARA. CT DOSE: 708.11 mGy.cm FINDINGS: Thyroid: Imaged portions of the thyroid gland are normal in size and attenuation. Thoracic aorta: The thoracic aorta is normal in caliber and demonstrates standard 3-vessel arch anatomy. No dissection is seen. Pulmonary vasculature: The pulmonary trunk is normal in caliber. There are no filling defects identified in main, lobar, or segmental pulmonary branches to suggest pulmonary embolus. Heart: The heart is enlarged and without pericardial effusion. There are coronary artery calcifications. Lungs and pleural spaces: Evaluation of lung parenchyma is degraded by motion artifact. No airspace consolidation or pleural effusion is identified. The trachea and central airways are clear. Mediastinum: There is no mediastinal lymphadenopathy. Vani: Clear. Axillae: There is no axillary lymphadenopathy. Upper abdomen: There is a large hiatal hernia, with the majority the stomach located in the thoracic cavity. A 1.5 cm right adrenal nodule meets CT criteria for a fat-containing adenoma. Skeletal structures: The skeletal structures are osteopenic. Degenerative change is seen throughout the thoracic spine. No lytic or blastic bony lesions are seen. IMPRESSION: 1. There is no evidence of pulmonary embolus in the main, lobar, or segmental pulmonary arteries. 2. Cardiomegaly. 3. Large hiatal hernia. 4. Lungs are clear. 5. Additional findings as above. Electronically signed by: Patrice Leonard M.D. 09/30/2017 5:40 PM Dictated Date/Time: 09/30/2017 5:26 PM Laboratory Results 09/30/17 16:00 Red Blood Count 3.87, Mean Corpuscular Volume 101.0, Mean Corpuscular Hemoglobin 35.1, Mean Corpuscular Hemoglobin Concent 34.8, Mean Platelet Volume 9.8, Neutrophils (%) (Auto) 74.6, Lymphocytes (%) (Auto) 11.6, Monocytes (%) ( Auto) 12.1, Eosinophils (%) (Auto) 1.3, Basophils (%) (Auto) 0.2, Neutrophils # (Auto) 6.56, Lymphocytes # (Auto) 1.02, Monocytes # (Auto) 1.06, Eosinophils # ( Auto) 0.11, Basophils # (Auto) 0.02 09/30/17 16:00 Test 09/30/17 16:00 09/30/17 16:37 White Blood Count 8.79 K/uL (4.8-10.8) Red Blood Count 3.87 M/uL (4.7-6.1) Hemoglobin 13.6 g/dL (14.0-18.0) Hematocrit 39.1 % (42-52) Mean Corpuscular Volume 101.0 fL (80-100) Mean Corpuscular Hemoglobin 35.1 pg (25-34) Mean Corpuscular Hemoglobin Concent 34.8 g/dl (32-36) Platelet Count 219 K/uL (130-400) Mean Platelet Volume 9.8 fL (7.4-10.4) Neutrophils (%) (Auto) 74.6 % Lymphocytes (%) (Auto) 11.6 % Monocytes (%) (Auto) 12.1 % Eosinophils (%) (Auto) 1.3 % Basophils (%) (Auto) 0.2 % Neutrophils # (Auto) 6.56 K/uL (1.4-6.5) Lymphocytes # (Auto) 1.02 K/uL (1.2-3.4) Monocytes # (Auto) 1.06 K/uL (0.11-0.59) Eosinophils # (Auto) 0.11 K/uL (0-0.5) Basophils # (Auto) 0.02 K/uL (0-0.2) RDW Standard Deviation 48.7 fL (36.4-46.3) RDW Coefficient of Variation 13.2 % (11.5-14.5) Immature Granulocyte % (Auto) 0.2 % Immature Granulocyte # (Auto) 0.02 K/uL (0.00-0.02) Anion Gap 10.0 mmol/L (3-11) Est Creatinine Clear Calc Drug Dose 100.8 ml/min Estimated GFR () 92.6 Estimated GFR (Non- 79.9 BUN/Creatinine Ratio 12.6 (10-20) Calcium Level 8.2 mg/dl (8.5-10.1) Bedside D-Dimer > 450 ng/mlFEU (0-450) Bedside Troponin I < 0.030 ng/ml (0-0.045) Laboratory results as reviewed by me. ECG Per My Interpretation Indication: chest pain Rate (beats per minute): 86 Rhythm: normal sinus Findings: Q waves (in L3), no ectopy, other (No ST elevation. ) ED Course 161: The patient was evaluated in room C11B. A complete history and physical exam was performed. 1651: I reassessed the patient at this time. The patient agreed to have a CT of his chest. 1747: I reassessed the patient at this time. The patient denies any chest pain. I discussed the results and treatment plan with the patient. 1749: I spoke with Dr. Joselyn Hargrove [facility] hospitalist. We discussed the patient's case. The patient will be evaluated by the [facility] for further management. Medical Decision This is a 62-year-old male who presents with chest pain. Differential diagnosis includes unstable angina, UT, pleurisy, costal chondritis, pulmonary embolism, GERD. I did perform a limited focused review of portions of the patient's old chart on the electronic medical record. The patient has had no prior visits to this hospital. I did evaluate the patient as noted above. IV access was established. The patient was placed on a continuous bus driver/monitor. I did order and personally review the patient's 12-lead EKG and chest x-ray as described above. I did order and review the patient's blood work as noted in the electronic medical record. Troponin is negative. D-dimer is elevated. After discussion with patient I did order a CT of the chest to rule out PE. I did review the images myself as well as the radiology report as described above. CT chest showed some incidental findings which I discussed with him. There is no evidence of PE. I did discuss the test results with the patient. I did recommend hospitalization for repeat cardiac enzymes. I did discuss case with the hospitalist and egg caser. Medication Reconcilliation Current Medication List: was personally reviewed by me Blood Pressure Screening Patient's blood pressure: Elevated blood pressure Blood pressure disposition: Referred to PCP Consults Time Called: 1749 Consulting Physician: Dr. Joselyn Hargrove, [facility] hospitalist I spoke with Dr. Joselyn Hargrove, [facility] hospitalist. We discussed the patient's case. The patient will be evaluated by the [facility] for further management. Impression Primary Impression: Acute chest pain Scribe Attestation The scribe's documentation has been prepared under my direct and personally reviewed by me in its entirety. I confirm that the note above accurately reflects all work, treatment, procedures, and medical decision making performed by me. Departure Information Dispostion Being Evaluated By Hospitalist Referrals Noe Barros M.D. (PCP) Patient Instructions My [facility]
[2017-09-30] MEDS: CARBAMAZEPINE 200 MG TAB PO SCH (21:59)
[2017-09-30] MEDS: RANITIDINE HCL 150 MG TAB PO SCH (21:59)
[2017-09-30] MEDS ORDERED: INFLUENZA ADMINISTRATION CHARGE ONE (23:15)
[2017-09-30] MEDS ORDERED: INFLUENZA VIRUS QUAD VACCINE 0.5 ML SYR IM. ONE (23:15)
[2017-10-01 00:12] VITALS: BP 131/79; PULSE 71; TEMP 37.1; O2SAT 94
[2017-10-01] MEDS: NITROGLYCERIN 2% OINTMENT 30GM TUBE EXT SCH ×2 (03:56→07:52)
[2017-10-01 04:49] VITALS: BP 117/75; PULSE 70; TEMP 37.1; O2SAT 97
[2017-10-01] MEDS ORDERED: ENOXAPARIN 40 MG/0.4 ML SYR SC SCH (06:00)
[2017-10-01 07:00] LABS: BASO % 0.4 %; BASO ABS # 0.02 K/uL (0-0.2); EOS % 1.8 %; HEMATOCRIT 35.1 % (42-52); HEMOGLOBIN 11.9 g/dL (14.0-18.0); IG# 0.01 K/uL (0.00-0.02); LYMPH % 16.6 %; LYMPH ABS # 0.93 K/uL (1.2-3.4); MEAN CELL VOLUME 101.4 fL (80-100); MEAN CORPUSCULAR HEMOGLOBIN 34.4 pg (25-34); MEAN CORPUSCULAR HGB CONC 33.9 g/dl (32-36); MEAN PLATELET VOLUME 9.3 fL (7.4-10.4); MONO % 14.4 %; MONO ABS # 0.81 K/uL (0.11-0.59); NEUT % 66.6 %; NEUT ABS # 3.74 K/uL (1.4-6.5); PLATELET COUNT 165 K/uL (130-400); RED CELL DISTRIBUTION WIDTH CV 13.3 % (11.5-14.5); RED CELL DISTRIBUTION WIDTH SD 49.4 fL (36.4-46.3); WHITE BLOOD COUNT 5.61 K/uL (4.8-10.8)
[2017-10-01 07:37] LABS: CALCIUM 8.1 mg/dl (8.5-10.1); CREATININE 0.9 mg/dl (0.60-1.40); POTASSIUM 4.2 mmol/L (3.5-5.1)
[2017-10-01 07:46] LABS: HEMOGLOBIN A1C 4.7 % (4.5-5.6)
[2017-10-01] MEDS: CARBAMAZEPINE 200 MG TAB PO SCH (07:49)
[2017-10-01] MEDS: RANITIDINE HCL 150 MG TAB PO SCH (07:50)
[2017-10-01] MEDS ORDERED: ENALAPRIL MALEATE 10 MG TAB PO SCH (09:00)
[2017-10-01] MEDS ORDERED: ARIPIprazole TAB 10 MG TAB PO SCH (09:00)
[2017-10-01] MEDS ORDERED: ARIPIprazole TAB 5 MG TAB PO SCH (09:00)
[2017-10-01] MEDS ORDERED: VENLAFAXINE HCL XR 75 MG CAPXR PO SCH (09:00)
[2017-10-01] MEDS ORDERED: PANTOprazole SOD 40 MG TAB PO SCH (09:00)
[2017-10-01] MEDS ORDERED: ASPIRIN 81 MG ECTAB PO SCH (09:00)
[2017-10-01] MEDS ORDERED: VENLAFAXINE HCL XR 150 MG CAPXR PO SCH (09:00)
[2017-10-01] MEDS ORDERED: DOBUTamine HCL 12.5 MG/ML 20 ML VIAL ONE (09:13)
[2017-10-01] MEDS ORDERED: METOPROLOL TARTRATE 1 MG/ML VIAL ONE ×2 (09:13→09:14)
[2017-10-01] MEDS ORDERED: ATROPINE SULFATE 0.1 MG/ML 5ML SYR ONE ×2 (09:13→09:14)
[2017-10-01] MEDS ORDERED: PERFLUTREN LIPID MICROSPHERE (DEFINITY) IV ONE (10:03)
[2017-10-01 10:22] VITALS: BP 131/82; PULSE 74; TEMP 37.1; O2SAT 98
[2017-10-01 11:40] VITALS: BP 99/63; PULSE 70; TEMP 36.9; O2SAT 95
--- NOTE | 2017-10-01 13:33 | Family Medicine Progress Note ---
Progress Note Date of Service Oct 01, 2017. 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 Went for his dobutamine stress test, and is back in his room -- reports that he is unhappy with his current psychiatrist Dr. Caldera and that he has been out of his medicines for 2 weeks , unable to come in for an appointment due to not having a car and also having issues with his arthritic knee. Pt lives alone, is on disability. Is interested in living in assisted living. Denies chest pain, difficulty breathing, abdominal pain or diarrhea or constipation. ROS See HPI for pertinent positives and negatives. Objective Physical Exam Notes: GENERAL: Awake, alert, well-appearing, in no distress. EYES: Normal conjunctiva. Sclera non-icteric. RESPIRATORY: Clear to auscultation. CARDIAC: Regular rate, normal rhythm. Extremities warm and well perfused. Pulses equal. ABDOMEN: Soft, non-distended. No tenderness to palpation. No rebound or guarding. No masses. MUSCULOSKELETAL: Chest examination reveals no tenderness. LOWER EXTREMITIES: Calves are equal size bilaterally and non-tender. No edema. No discoloration. NEURO: Normal sensorium. No sensory or motor deficits noted. SKIN: No rash or jaundice noted. Assessment and Plan 62M here for chest pain PMH: bipolar, epilepsy, HTN, HLD, GERD Chest pain - Sinus rhythm on Tele monitoring, CXR neg, Trp x 3 neg, lipids are normal. D- dimer was elev -- CTA shows no embolus, also large hiatal hernia. - Continue statin therapy, enalapril, and start baby aspirin daily. - Stress test shows: Bipolar/non-compliant with medication - Is tolerating restarting his Effexor and Abilify at half dose with out stomach upset so far. Will continue at current dose. Resident Tracking Resident Involvement: Resident Care Provided Care Provided: Adult Hospital Medicine
--- NOTE | 2017-10-01 14:12 | Discharge Instructions ---
Discharge Instructions Date of Service Oct 01, 2017. Admission Reason for Admission: Chest Pain Discharge Discharge Diagnosis / Problem: Chest pain, non cardiac Discharge Goals Goal(s): Decrease discomfort, Increase independence, Learn about illness, Diagnostic testing Activity Recommendations Activity Limitations: per Instructions/Follow-up section . Instructions / Follow-Up Instructions / Follow-Up You were admitted due to pain in your chest. We evaluated you for signs of problems with your heart and lungs -- your heart and lungs are healthy. We recommend that you take omeprazole (Prilosec) once a day for ten days and follow up with your primary care physician. You were not taking your psychiatric medication. We have sent 1 month worth of prescription and would like you to follow up with your family physician to further address this until you are able to get an appointment with a psychiatrist. Be well A [facility] Current Hospital Diet Patient's current hospital diet: AHA Diet (Heart Healthy) Discharge Diet Recommended Diet: Regular Diet Pending Studies Studies pending at discharge: no Laboratory Results Hemoglobin A1c Test 10/01/17 06:47 Range/Units Estimated Average Glucose 88 mg/dl Hemoglobin A1c 4.7 4.5-5.6 % Lipid Panel Test 10/01/17 06:47 Range/Units Triglycerides Level 96 0-150 mg/dl Cholesterol Level 126 0-200 mg/dl HDL Cholesterol 49 mg/dl Cholesterol/HDL Ratio 2.6 LDL Cholesterol, Calculated 58 mg/dl Medical Emergencies . Who to Call and When: Medical Emergencies: If at any time you feel your situation is an emergency, please call 911 immediately. . Non-Emergent Contact Non-Emergency issues call your: Primary Care Provider . . "Provider Documentation" section prepared by Michelle Roy. .
[2017-10-01] MEDS ORDERED: PRLSR20 PO (14:15)
--- NOTE | 2017-10-01 14:25 | DOBUTAMINE ECHO ---
*NOTICE TO RECEIVING LIBERTARIAN AGENCY This information is strictly Confidential and protected under [place] law. [place] law prohibits you from making any further disclosure of this information unless further disclosure is expressly permitted by the written consent of the person to whom it pertains or is authorized by law. A general authorization for the release of medical or other information is not sufficient for this purpose. Hospital accepts no responsibility if the information is made available to any other person, INCLUDING THE PATIENT. Interpretation Summary * Name: SAIRA TSAI Study Date: 10/01/2017 07:12 AM BP: 132/77 mmHg * Patient Location: 34 HR: 66 * : 1955 (M/d/yyyy) Gender: Male Height: 71 in * Age: 62 yrs Ethnicity: CA Weight: 262 lb * Ordering Physician: Celsa Alberto * Referring Physician: Self, Referred * Performed By: Vivian Jean RCS * * Reason For Study: CHEST PAIN * BSA: 2.4 m2 * -- Conclusions -- * There is moderate asymmetric left ventricular hypertrophy. * Left ventricular systolic function is normal. * Grade I diastolic dysfunction, (abnormal relaxation pattern). * Normal dobutamine echocardiogram without evidence of inducible ischemia Procedure Details * DOBUTAMINE ECHO, CPT#[id number] * ECHO COLOR FLOW, CPT #[id number] * ECHO DOPPLER, CPT #[id number] * The study was technically limited with all images being suboptimal in quality. * A contrast injection of Definity was performed to improve assessment of LV function. * Contrast was injected into an intravenous site in the right arm. * One vial of Definity ultrasound contrast was diluted in normal saline to a total volume of 10 ml. A total of '5' ml of solution was administered during imaging. * Lot # [id number] of Definity utilized for procedure. * Expiration date SEP 07. * The attending nurse who injected the contrast agent was CHASE BEAR CPL, RN. Left Ventricular Findings with Stress * Normal dobutamine echocardiogram without evidence of inducible ischemia Left Ventricle * The left ventricle is normal in size. * There is moderate asymmetric left ventricular hypertrophy. * Focal thickening of the basal septum with no evidence of left ventricular outflow obstruction. * Left ventricular systolic function is normal. * Grade I diastolic dysfunction, (abnormal relaxation pattern). * The left ventricular wall motion is normal at rest. Right Ventricle * The right ventricle is normal in size and function. Atria * The left atrial size is normal. * Right atrium not well visualized. Mitral Valve * The mitral valve is grossly normal. * Significant mitral regurgitation is absent. Tricuspid Valve * The tricuspid valve is not well visualized, but is grossly normal. * Significant tricuspid regurgitation is absent. Aortic Valve * The aortic valve is normal in structure and function. * No hemodynamically significant valvular aortic stenosis. * There is no significant aortic regurgitation. Great Vessels * The aortic root is normal size. Pericardium * There is no pericardial effusion. Stress Parameters * The stress portion of this study was personally supervised by the undersigned interpreting physician. * Rest heart rate was '66' BPM. * Rest blood pressure was '132/77' * Maximum heart rate achieved was 141 bpm. * Maximum heart rate was 88 % of maximum age-predicted heart rate. * Maximum blood pressure was '170/50' * Maximum Dobutamine infusion rate was '50' mcg/kg/min. * Dobutamine infusion was terminated due to end of protocol/maximum medication doses * A total of 5 mg of IV Metoprolol was administered to reverse Dobutamine-induced tachycardia. * A total of 0.5 mg of intravenous Atropine was used to supplement Dobutamine for heart rate response. Left Ventricular Findings with Stress * Baseline EKG was normal There are no significant EKG changes with peak dobutamine infusion Baseline echocardiogram was normal There was normal augmentation of all segments without inducible wall motion abnormalities at peak dobutamine infusion No symptoms reported Normal blood pressure response to dobutamine No arrhythmias MMode 2D Measurements and Calculations IVSd 1.9 cm IVSs 2.4 cm LVIDd 4.7 cm LVIDs 2.7 cm LVPWd 1.3 cm LVPWs 1.9 cm IVS/LVPW 1.5 FS 42.6 % EDV(Teich) 104.3 ml ESV(Teich) 27.5 ml EF(Teich) 73.7 % EDV(cubed) 106.3 ml ESV(cubed) 20.1 ml EF(cubed) 81.1 % % IVS thick 24.6 % % LVPW thick 47.2 % LV mass(C)d 331.9 grams LV mass(C)dI 140.3 grams/m\S\2 LV mass(C)s 272.8 grams LV mass(C)sI 115.3 grams/m\S\2 SV(Teich) 76.8 ml SI(Teich) 32.5 ml/m\S\2 SV(cubed) 86.3 ml SI(cubed) 36.5 ml/m\S\2 Ao root diam 3.7 cm Ao root area 10.7 cm\S\2 ACS 2.4 cm LA dimension 4.2 cm LA/Ao 1.1 LVOT diam 1.9 cm LVOT area 2.7 cm\S\2 LVAd ap4 39.5 cm\S\2 LVLd ap4 9.1 cm EDV(MOD-sp4) 138.1 ml EDV(sp4-el) 145.5 ml LVAs ap4 26.5 cm\S\2 LVLs ap4 8.1 cm ESV(MOD-sp4) 70.0 ml ESV(sp4-el) 73.6 ml EF(MOD-sp4) 49.3 % EF(sp4-el) 49.4 % LVAd ap2 41.1 cm\S\2 LVLd ap2 8.8 cm EDV(MOD-sp2) 155.1 ml EDV(sp2-el) 162.8 ml LVAs ap2 27.1 cm\S\2 LVLs ap2 7.9 cm ESV(MOD-sp2) 74.8 ml ESV(sp2-el) 78.7 ml EF(MOD-sp2) 51.8 % EF(sp2-el) 51.6 % LVLd %diff -3.17 % EDV(MOD-bp) 146.7 ml LVLs %diff -2.50 % ESV(MOD-bp) 72.3 ml EF(MOD-bp) 50.8 % SV(MOD-sp4) 68.1 ml SI(MOD-sp4) 28.8 ml/m\S\2 SV(MOD-sp2) 80.3 ml SI(MOD-sp2) 33.9 ml/m\S\2 SV(MOD-bp) 74.5 ml SI(MOD-bp) 31.5 ml/m\S\2 SV(sp4-el) 71.9 ml SI(sp4-el) 30.4 ml/m\S\2 SV(sp2-el) 84.1 ml SI(sp2-el) 35.5 ml/m\S\2 Doppler Measurements and Calculations MV E max elana 71.9 cm/sec MV A max elana 68.7 cm/sec MV E/A 1.0 MV P1/2t max elana 74.7 cm/sec MV P1/2t 75.2 msec MVA(P1/2t) 2.9 cm\S\2 MV dec slope 291.2 cm/sec\S\2 MV dec time 0.29 sec Ao V2 max 129.1 cm/sec Ao max PG 6.7 mmHg Ao max PG (full) 3.5 mmHg NICOLLE(V,A) 1.9 cm\S\2 NICOLLE(V,D) 1.9 cm\S\2 LV V1 max PG 3.2 mmHg LV V1 max 89.0 cm/sec PA V2 max 100.9 cm/sec PA max PG 4.1 mmHg
[2017-10-01 15:29] VITALS: BP 99/63; PULSE 70; TEMP 36.9; O2SAT 95
[2017-10-01] MEDS ORDERED: TPRSR/50 PO (15:47)
--- NOTE | 2017-10-01 22:08 | Discharge Summary ---
Discharge Summary Date of Service Oct 01, 2017. Discharge Summary Admission Date: Sep 30, 2017 at 18:51 Discharge Date: Oct 01, 2017 Principal Diagnosis: CHest pain non cardiac Problems/Secondary Diagnoses: Bipolar disorder Immunizations: Have You Had Influenza Vaccine: No History of Tetanus Vaccine?: Yes Tetanus Immunization Date: Dec 22, 2004 History of Pneumococcal: No History of Hepatitis B Vaccine: No Procedures: Stress ECHO Interpretation Summary * Name: SAIRA TSAI Study Date: 10/01/2017 07:12 AM BP: 132/77 mmHg * Patient Location: [facility] HR: 66 * : 1955 (M/d/yyyy) Gender: Male Height: 71 in * Age: 62 yrs Ethnicity: SD Weight: 262 lb * Ordering Physician: Celsa Alberto * Referring Physician: Self, Referred * Performed By: Vivian Jean RCS * * Reason For Study: CHEST PAIN * BSA: 2.4 m2 * -- Conclusions -- * There is moderate asymmetric left ventricular hypertrophy. * Left ventricular systolic function is normal. * Grade I diastolic dysfunction, (abnormal relaxation pattern). * Normal dobutamine echocardiogram without evidence of inducible ischemia Procedure Details * DOBUTAMINE ECHO, CPT#[id number] * ECHO COLOR FLOW, CPT #[id number] * ECHO DOPPLER, CPT #[id number] * The study was technically limited with all images being suboptimal in quality. * A contrast injection of Definity was performed to improve assessment of LV function. * Contrast was injected into an intravenous site in the right arm. * One vial of Definity ultrasound contrast was diluted in normal saline to a total volume of 10 ml. A total of '5' ml of solution was administered during imaging. * Lot # [id number] of Definity utilized for procedure. * Expiration date 1 SEP 07. * The attending nurse who injected the contrast agent was CHASE BEAR CPL, RN. Left Ventricular Findings with Stress * Normal dobutamine echocardiogram without evidence of inducible ischemia Left Ventricle * The left ventricle is normal in size. * There is moderate asymmetric left ventricular hypertrophy. * Focal thickening of the basal septum with no evidence of left ventricular outflow obstruction. * Left ventricular systolic function is normal. * Grade I diastolic dysfunction, (abnormal relaxation pattern). * The left ventricular wall motion is normal at rest. Right Ventricle * The right ventricle is normal in size and function. Atria * The left atrial size is normal. * Right atrium not well visualized. Mitral Valve * The mitral valve is grossly normal. * Significant mitral regurgitation is absent. Tricuspid Valve * The tricuspid valve is not well visualized, but is grossly normal. * Significant tricuspid regurgitation is absent. Aortic Valve * The aortic valve is normal in structure and function. * No hemodynamically significant valvular aortic stenosis. * There is no significant aortic regurgitation. Great Vessels * The aortic root is normal size. Pericardium * There is no pericardial effusion. Stress Parameters * The stress portion of this study was personally supervised by the undersigned interpreting physician. * Rest heart rate was '66' BPM. * Rest blood pressure was '132/77' * Maximum heart rate achieved was 141 bpm. * Maximum heart rate was 88 % of maximum age-predicted heart rate. * Maximum blood pressure was '170/50' * Maximum Dobutamine infusion rate was '50' mcg/kg/min. * Dobutamine infusion was terminated due to end of protocol/maximum medication doses * A total of 5 mg of IV Metoprolol was administered to reverse Dobutamine- induced tachycardia. * A total of 0.5 mg of intravenous Atropine was used to supplement Dobutamine for heart rate response. Left Ventricular Findings with Stress * Baseline EKG was normal There are no significant EKG changes with peak dobutamine infusion Baseline echocardiogram was normal There was normal augmentation of all segments without inducible wall motion abnormalities at peak dobutamine infusion No symptoms reported Normal blood pressure response to dobutamine No arrhythmias Medication Reconciliation New Medications: Metoprolol Succinate (Metoprolol Succinate ER) 50 Mg Tabcr 1 TAB PO DAILY for 30 Days, #30 TABS Omeprazole (Prilosec) 20 Mg Capcr 20 MG PO DAILY for 10 Days, #10 CAP Continued Medications: Alprazolam (Xanax) 0.5 Mg Tab 0.5 MG PO BID PRN for Anxiety Aripiprazole (Abilify) 10 Mg Tab 10 MG PO DAILY, 2 Refills Carbamazepine (Tegretol) 200 Mg Tab 600 MG PO AMPM Enalapril Maleate (Vasotec) 10 Mg Tab 10 MG PO DAILY, TAB Ranitidine (Zantac) 150 Mg Tab 150 MG PO AMHS Simvastatin (Zocor) 20 Mg Tab 20 MG PO QPM, 0 Refills Venlafaxine Hcl (Venlafaxine Hcl Er) 150 Mg Tab 150 MG PO DAILY, 2 Refills Discharge Exam Spoke with pt while in bed, having just seen PT -- he reports that the chest pain he felt prior to admission and in ED has since resolved. Went for his dobutamine stress test, and is back in his room -- reports that he is unhappy with his current psychiatrist Dr. Caldera and that he has been out of his psychiatric medicines, namely abilify and effexor, for 2 weeks, unable to come in for an appointment due to not having a car and also having issues with his arthritic knee. Pt lives alone, is on disability. Is interested in living in assisted living. Denies chest pain, difficulty breathing, abdominal pain or diarrhea or constipation. ROS See HPI for pertinent positives and negatives. PE GENERAL: Awake, alert, well-appearing, in no distress. EYES: Normal conjunctiva. Sclera non-icteric. RESPIRATORY: Clear to auscultation. CARDIAC: Regular rate, normal rhythm. Extremities warm and well perfused. Pulses equal. ABDOMEN: Soft, non-distended. No tenderness to palpation. No rebound or guarding. No masses. MUSCULOSKELETAL: Chest examination reveals no tenderness. LOWER EXTREMITIES: Calves are equal size bilaterally and non-tender. No edema. No discoloration. NEURO: Normal sensorium. No sensory or motor deficits noted. SKIN: No rash or jaundice noted. Hospital Course Mr. Tsai was admitted for chest pain that he described as stabbing and persistent, non radiating sub sternal pain that began after lying down for a nap in his home. His past medical history is significant for bipolar, epilepsy , HTN, HLD, GERD. We investigated cardiac reasons for his pain including telemetry, CXR, cardiac enzymes all of which were normal. His D-dimer was moderately elevated, and a CTA showed no embolus, however it did show a large hiatal hernia. A stress test done showed no evidence of ischemia. It is recommended that pt be on a baby aspirin daily. Pain likely secondary to GERD Pt also describes noncompliance with his psychiatric medications prior to admission. For two weeks he had run out of his effexor and abilify, explaining that he was unable to keep an appointment with his psychiatrist and running out of refills. Anxiety may be a component of his presenting symptoms. We have refilled these two medications for one month each -- and pt is instructed to take only half a tablet per day for a week, and then resume normal doses to avoid adverse side effects like stomach upset and nausea. Pt also has chronic reflux disease as well as a significant hiatal hernia -- we have added a temporary course of omeprazole to his regimen, as this may also have been contributory. Pt felt well on day of discharge and verbalized understanding of his stay and plan for his health. Total Time Spent: Greater than 30 minutes This includes examination of the patient, discharge planning, medication reconciliation, and communication with other providers. Discharge Instructions Please refer to the electronic Patient Visit Report (Discharge Instructions) for additional information. Additional Copies To Noe Barros M.D. Resident Tracking Resident Involvement: Resident Care Provided Care Provided: Adult Hospital Medicine Reviewed: Pt Seen/Exam by Me History no further chest pain. Constitutional: denies: fever Respiratory: negative: short of breath Cardiovascular: denies chest pain General Appearance: no apparent distress Respiratory: lungs clear, no respiratory distress Cardiovascular: regular rate, rhythm Neurologic/Psychiatric: alert, oriented x 3, other (restless) Skin Characteristics: warm/dry Assessment/Plan Resident Physician Supervision Note: I independently interviewed and examined the patient and verified the patiño history and physical, reviewed labs and image studies, discussed the case with the resident Dr. Roy and agree with the findings and care plan.
== END 2017-10-01 16:00 | disposition home or self-care (01) ==
LOC: EDBD 16:09 → C.EDC 16:10 → UNDOADMOB 18:51 → C.2T 18:51 → ENRESERV 19:46
PROVIDERS: ADMIT Internal Medicine; ATTEND Family Medicine
DX: R07.89 Other chest pain (principal); F31.9 Bipolar disorder, unspecified; E78.5 Hyperlipidemia, unspecified; I10 Essential (primary) hypertension; F32.9 Major depressive disorder, single episode, unspecified; F17.200 Nicotine dependence, unspecified, uncomplicated; G40.909 Epilepsy, unspecified, not intractable, without status epilepticus; Z88.8 Allergy status to other drugs, medicaments and biological substances; Z82.49 Family history of ischemic heart disease and other diseases of the circulatory system; K44.9 Diaphragmatic hernia without obstruction or gangrene

== ENCOUNTER 2020-07-21 10:04 | Inpatient (IN) ==
[2020-07-21] MEDS ORDERED: ACETAMINOPHEN 1000 MG/100 ML IV IV STA (10:32)
[2020-07-21] MEDS ORDERED: ONDANSETRON INJ 2 MG/ML 2 ML VIAL IV STA (10:32)
--- NOTE | 2020-07-21 10:39 | Emergency Department Note ---
Impression & Plan Hypotension, Anemia, Leukocytosis, Weakness, OCTAVIO (acute kidney injury), Acute GI bleeding ED Provider Note NAME: SAIRA TSAI AGE: 65 SEX: M : 1955 ARRIVES VIA: Ambulance INFORMANT: [Patient][ems] ED PROVIDER(S): [Patrice Reese MD] CHIEF COMPLAINT: Abdominal pain HISTORY OF PRESENT ILLNESS: The patient is a 65-year-old male presents to the ER with nausea and upper abdominal/chest pain for the last 24 hours. The patient denies vomiting or diarrhea. He states he does have a hard time urinating but it does not burn to urinate. As per the EMS crew, the patient fell out of a chair yesterday and then refused to come to the hospital. The EMS team believes he may have been sitting in one position for the last 12 to 24 hours. He was very weak when they tried to get him onto the stretcher. He required significant assistance. The patient denies any fever, he denies any shortness of breath. He states he has 9/10 pain in the chest, abdomen and back. The pain is constant and does not change. REVIEW OF SYSTEMS: See HPI for pertinent positives and negatives. A total of ten systems were reviewed and were otherwise negative. PMHx/PSHx: See Below SOCIAL HISTORY: See Below. PHYSICAL EXAM: GENERAL: Patient is in no acute distress. Seems somewhat disheveled and dirty. HEENT: No acute trauma, normocephalic atraumatic, mucous membranes moist, no nasal congestion, no scleral icterus. NECK: No stridor, no adenopathy, no meningismus, trachea is midline. LUNGS: Clear to auscultation bilaterally, no wheeze, no rhonchi, breath sounds equal. HEART: Mildly tachycardic, regular rhythm. No murmurs. ABDOMEN: Soft, nontender, bowel sounds positive, no hernias, no peritonitis. Somewhat distended. EXTREMITIES: No cyanosis or edema, full range of motion of all the joints without pain or difficulty, no signs for acute trauma. NEUROLOGIC: Oriented x 3, no acute motor or sensory deficits, no focal weakness. No extremity drift, no difference in strength of his hand grasp. SKIN: No rash, no jaundice, mild diaphoresis. Rectal: Brown stool, heme positive. DIFFERENTIAL DIAGNOSIS: Appendicitis, testicular torsion, infections, diverticulitis, UTI, obstruction, mesenteric ischemia, aortic pathology, GI bleeding, inflammatory bowel disease, renal colic, PUD, pancreatitis, biliary pathology, hernia, volvulus, constip ation, as well as other pathologies. EMERGENCY DEPARTMENT COURSE/PROCEDURES: ECG: Indication was chest and abdominal pain. The ECG shows a sinus tachycardia with a first-degree AV block. The rate is 104. The QTc is 444. There is no ST elevation, no PVCs. Continuous Cardiac Monitoring: An order was placed for continuous cardiac monitoring. The monitor shows a rate of 95 with sinus rhythm with a first- degree AV block. Critical Care Note: I have personally spent 55 minutes of critical care time in the direct management of this patient. This includes bedside care, interpretation of diagnostic studies, and testing, discussion with consultants, patient, and family members, and other required patient management activities. This 55 minutes is in excess of all separately billable procedures. MEDICAL DECISION MAKING: There is a moderate leukocytosis at 14,000, this is consistent with infection. The patient is anemic with a hemoglobin of 9.7, this is a drop for him. Stool heme test was positive. There is a normal platelet count. There was evidence for acute kidney injury with a creatinine of 4, BUN was also elevated at 71. Lactic acid level was elevated at 2.3, consistent with dehydration and/or possibly infection. Total CK was elevated at over 1200, consistent with some potential early rhabdomyolysis. No evidence for pancreatitis. No worrisome liver enzyme elevation. ECG showed a sinus tachycardia, there was no acute ischemia. Cardiac enzyme testing x1 is not consistent with acute cardiac injury. Urinalysis did not show infection. Covid testing returned negative. Chest x-ray did not show pneumonia or CHF. Abdominal and pelvis CT did not show any acute inflammatory process. There was no bowel obstruction. No free air. Tegretol level was therapeutic. The patient presented tachycardic and somewhat hypotensive. He was quite weak. Patient received 1.5 L of IV saline, 1 L of lactated Ringer's. He was given a bolus of IV Protonix and was placed on a Protonix drip. He received IV cefepime as empiric antibiotic coverage. He was given IV Zofran for nausea. He received IV Tylenol for the slight fever and for his pain. Patient presents with weakness, tachycardia, hypotension. He is quite dehydrated, he has some acute kidney injury, he is anemic, he appears to have a GI bleed. Hospitalization is clearly warranted. The patient has made improvement with the above treatment. His blood pressure has improved, his heart rate has improved. He seems much more comfortable. I spoke to the patient, I talked with case management. The on-call hospitalist has been consulted. Currently, the patient's hemoglobin is adequate and he is not in need of an emergent blood transfusion, his hemoglobin will need to be followed closely as the hemoglobin value may drop with continued hydration. Past Med/Surg History Medical History Anemia Anxiety Depression GERD (gastroesophageal reflux disease) Hyperlipidemia Hypertension Hypothyroidism Osteoarthritis of hip Paranoid schizophrenia, chronic condition Seizure disorder last was 2002--on tegretol, follows with Dr. Vee Mcnulty Vitamin D deficiency Surgical History History of appendectomy History of cholecystectomy History of colonoscopy History of umbilical hernia repair History of wisdom tooth extraction Family History Father Family history of diabetes mellitus Mother Family history of diabetes mellitus Brother Family history of diabetes mellitus Other No family history of adverse response to anesthesia Social History Smoking Status: Never smoker Second Hand Exposure: Yes (mom smoked); Hx Alcohol Use: Yes Alcohol type: other Hx Substance Use: Yes (last used 40yrs ago) Last Used Substance Other:: last used 40yrs ago Preferred Language: Macedonian Communication Ability: Effective Pattern[employer] Required: No Beliefs That Will Affect Care: None Current Living Situation: Alone Other Information That Helps Us Care for You: No Feels Safe at Home: Yes Safety Concerns: Feels Safe At This Time Assistive Devices: Cane, Glasses and Walker Allergies Allergies Allergy/AdvReac Type Severity Reaction Status Date / Time loxapine Allergy Mild restless Verified 07/21/20 10:40 and nervous morphine Allergy Mild nausea/vomi Verified 07/21/20 10:40 ting Home Meds Home Medications Medication Instructions Recorded Confirmed cholecalciferol (vitamin D3) 2,000 unit PO QAM 01/13/19 07/21/20 [Vitamin D3] levothyroxine 50 mcg PO QAM 01/13/19 07/21/20 [id number]-[id number] 1 tab PO QAM 01/13/19 07/21/20 [Multivitamin 50 Plus] simvastatin 20 mg PO HS 01/13/19 07/21/20 venlafaxine 150 mg PO QAM 01/13/19 07/21/20 chlorthalidone 25 mg PO DAILY 07/21/20 07/21/20 enalapril maleate 20 mg PO BID 07/21/20 07/21/20 folic acid 1 mg PO DAILY 07/21/20 07/21/20 furosemide 20 mg PO BID 07/21/20 07/21/20 metoprolol tartrate 100 mg PO BID 07/21/20 07/21/20 topiramate 50 mg PO DAILY 07/21/20 07/21/20 Results & Data (ED) Vital Signs Vital Signs - 24 hr 07/21/20 10:30 07/21/20 10:36 07/21/20 11:27 Temperature 38 C H Temperature Source Oral Pulse Rate 104 H Pulse Rate [Apical] 101 H Respiratory Rate 22 20 Blood Pressure 102/60 Blood Pressure [Left Arm] 98/38 L Blood Pressure Mean 74 Blood Pressure Mean [Left Arm] 58 Pulse Oximetry 92 92 93 Oxygen Delivery Method Room Air Room Air Room Air Sepsis Recent Fever Within 48 Hours Yes Sepsis New/Unexplained Change in Mental Status No Sepsis Action Taken by Nursing Physician Notified 07/21/20 12:25 Temperature Temperature Source Pulse Rate Pulse Rate [Apical] 98 H Respiratory Rate 22 Blood Pressure Blood Pressure [Left Arm] 93/48 L Blood Pressure Mean Blood Pressure Mean [Left Arm] 63 Pulse Oximetry 93 Oxygen Delivery Method Room Air Sepsis Recent Fever Within 48 Hours Sepsis New/Unexplained Change in Mental Status Sepsis Action Taken by Jail Medications Current Medication List: was personally reviewed by me Laboratory Data Attestation: I reviewed the patient's lab results. Result diagrams: 07/21/20 10:23 07/21/20 10:23 Lab Results 07/21/20 07/21/20 07/21/20 Range/Units 10:23 10:23 10:23 WBC 14.29 H (4.8-10.8) K/uL RBC 2.58 L (4.7-6.1) M/uL Hgb 9.7 L (14.0-18.0) g/dL Hct 28.4 L (42-52) % MCV 110.1 H (80-100) fL MCH 37.6 H (25-34) pg MCHC 34.2 (32-36) g/dL RDW Std Deviation 55.9 H (36.4-46.3) fL RDW Coeff of Peng 14.1 (11.5-14.5) % Plt Count 205 (130-400) K/uL MPV 9.9 (7.4-10.4) fL Immature Gran % (Auto) 0.3 % Neut % (Auto) 89.4 % Lymph % (Auto) 4.3 % [place] % (Auto) 5.9 % Eos % (Auto) 0.0 % Baso % (Auto) 0.1 % Neut # (Auto) 12.77 H (1.4-6.5) K/uL Lymph # (Auto) 0.62 L (1.2-3.4) K/uL [place] # (Auto) 0.85 H (0.11-0.59) K/uL Eos # (Auto) 0.00 (0-0.5) K/uL Baso # (Auto) 0.01 (0-0.2) K/uL Immature Gran # (Auto) 0.04 H (0.00-0.02) K/uL Macrocytosis Present Sodium 137 (136-145) mmol/L Potassium 3.3 L (3.5-5.1) mmol/L Chloride 105 (98-107) mmol/L Carbon Dioxide 22 (21-32) mmol/L Anion Gap 10.0 (3-11) BUN 71 H (7-18) mg/dl Creatinine 4.07 H (0.6-1.4) mg/dl Est Cr Clr Drug Dosing 25.1 ml/min Est GFR ( Amer) 16.8 Est GFR (Non-Af Amer) 14.5 BUN/Creatinine Ratio 17.4 (10-20) Glucose 184 H (70-99) mg/dl Lactate (0.4-2.0) mmol/L Calcium 8.6 (8.5-10.1) mg/dl Magnesium 2.1 (1.8-2.4) mg/dl Total Bilirubin 0.6 (0.2-1) mg/dl AST 32 (15-37) U/L ALT 26 (12-78) U/L Alkaline Phosphatase 66 (45-117) U/L Total Creatine Kinase (39-308) U/L Troponin I 0.025 (0-0.045) ng/ml Total Protein 7.7 (6.4-8.2) gm/dl Albumin 3.4 (3.4-5.0) gm/dl Globulin 4.3 H (2.5-4.0) gm/dl Albumin/Globulin Ratio 0.8 L (0.9-2) Lipase 44 L (73-393) U/L Urine Color Urine Appearance (Clear) Urine pH (4.5-7.5) Ur Specific [place] (1.000-1.030) Urine Protein (Negative) Urine Glucose (UA) (Negative) Urine Ketones (Negative) Urine Blood (Negative) Urine Nitrite (Negative) Urine Bilirubin (Negative) Urine Urobilinogen (Negative) Ur Leukocyte Esterase (Negative) Urine WBC (Auto) (0-5) /hpf Urine RBC (Auto) (0-4) /hpf U Hyaline Cast (Auto) (0-5) /lpf U Epithel Cells (Auto) (0-5) /lpf Urine Bacteria (Auto) (Negative) Granular Casts (0) /lpf Urine Yeast Carbamazepine 12.0 (4-12) mcg/ml COVID-19 Eval Order SARS-CoV-2, RNA, NAAT (NEGATIVE) Blood Type Antibody Screen 07/21/20 07/21/20 07/21/20 Range/Units 10:23 10:50 11:20 WBC (4.8-10.8) K/uL RBC (4.7-6.1) M/uL Hgb (14.0-18.0) g/dL Hct (42-52) % MCV (80-100) fL MCH (25-34) pg MCHC (32-36) g/dL RDW Std Deviation (36.4-46.3) fL RDW Coeff of Peng (11.5-14.5) % Plt Count (130-400) K/uL MPV (7.4-10.4) fL Immature Gran % (Auto) % Neut % (Auto) % Lymph % (Auto) % [place] % (Auto) % Eos % (Auto) % Baso % (Auto) % Neut # (Auto) (1.4-6.5) K/uL Lymph # (Auto) (1.2-3.4) K/uL [place] # (Auto) (0.11-0.59) K/uL Eos # (Auto) (0-0.5) K/uL Baso # (Auto) (0-0.2) K/uL Immature Gran # (Auto) (0.00-0.02) K/uL Macrocytosis Sodium (136-145) mmol/L Potassium (3.5-5.1) mmol/L Chloride (98-107) mmol/L Carbon Dioxide (21-32) mmol/L Anion Gap (3-11) BUN (7-18) mg/dl Creatinine (0.6-1.4) mg/dl Est Cr Clr Drug Dosing ml/min Est GFR ( Amer) Est GFR (Non-Af Amer) BUN/Creatinine Ratio (10-20) Glucose (70-99) mg/dl Lactate (0.4-2.0) mmol/L Calcium (8.5-10.1) mg/dl Magnesium (1.8-2.4) mg/dl Total Bilirubin (0.2-1) mg/dl AST (15-37) U/L ALT (12-78) U/L Alkaline Phosphatase (45-117) U/L Total Creatine Kinase 1202 H (39-308) U/L Troponin I (0-0.045) ng/ml Total Protein (6.4-8.2) gm/dl Albumin (3.4-5.0) gm/dl Globulin (2.5-4.0) gm/dl Albumin/Globulin Ratio (0.9-2) Lipase (73-393) U/L Urine Color Dark Yellow Urine Appearance Turbid A (Clear) Urine pH 5.0 (4.5-7.5) Ur Specific [place] 1.027 (1.000-1.030) Urine Protein 1+ H (Negative) Urine Glucose (UA) Negative (Negative) Urine Ketones Trace H (Negative) Urine Blood Trace H (Negative) Urine Nitrite Negative (Negative) Urine Bilirubin 1+ H (Negative) Urine Urobilinogen Negative (Negative) Ur Leukocyte Esterase Trace H (Negative) Urine WBC (Auto) 1-5 (0-5) /hpf Urine RBC (Auto) 0-4 (0-4) /hpf U Hyaline Cast (Auto) >30 H (0-5) /lpf U Epithel Cells (Auto) >30 H (0-5) /lpf Urine Bacteria (Auto) Negative (Negative) Granular Casts 10-20 H (0) /lpf Urine Yeast Not Reportable Carbamazepine (4-12) mcg/ml COVID-19 Eval [facility] SARS-CoV-2, RNA, NAAT (NEGATIVE) Blood Type Antibody Screen 07/21/20 07/21/20 07/21/20 Range/Units 11:20 11:27 11:27 WBC (4.8-10.8) K/uL RBC (4.7-6.1) M/uL Hgb (14.0-18.0) g/dL Hct (42-52) % MCV (80-100) fL MCH (25-34) pg MCHC (32-36) g/dL RDW Std Deviation (36.4-46.3) fL RDW Coeff of Peng (11.5-14.5) % Plt Count (130-400) K/uL MPV (7.4-10.4) fL Immature Gran % (Auto) % Neut % (Auto) % Lymph % (Auto) % [place] % (Auto) % Eos % (Auto) % Baso % (Auto) % Neut # (Auto) (1.4-6.5) K/uL Lymph # (Auto) (1.2-3.4) K/uL [place] # (Auto) (0.11-0.59) K/uL Eos # (Auto) (0-0.5) K/uL Baso # (Auto) (0-0.2) K/uL Immature Gran # (Auto) (0.00-0.02) K/uL Macrocytosis Sodium (136-145) mmol/L Potassium (3.5-5.1) mmol/L Chloride (98-107) mmol/L Carbon Dioxide (21-32) mmol/L Anion Gap (3-11) BUN (7-18) mg/dl Creatinine (0.6-1.4) mg/dl Est Cr Clr Drug Dosing ml/min Est GFR ( Amer) Est GFR (Non-Af Amer) BUN/Creatinine Ratio (10-20) Glucose (70-99) mg/dl Lactate 2.3 H* (0.4-2.0) mmol/L Calcium (8.5-10.1) mg/dl Magnesium (1.8-2.4) mg/dl Total Bilirubin (0.2-1) mg/dl AST (15-37) U/L ALT (12-78) U/L Alkaline Phosphatase (45-117) U/L Total Creatine Kinase (39-308) U/L Troponin I (0-0.045) ng/ml Total Protein (6.4-8.2) gm/dl Albumin (3.4-5.0) gm/dl Globulin (2.5-4.0) gm/dl Albumin/Globulin Ratio (0.9-2) Lipase (73-393) U/L Urine Color Urine Appearance (Clear) Urine pH (4.5-7.5) Ur Specific [place] (1.000-1.030) Urine Protein (Negative) Urine Glucose (UA) (Negative) Urine Ketones (Negative) Urine Blood (Negative) Urine Nitrite (Negative) Urine Bilirubin (Negative) Urine Urobilinogen (Negative) Ur Leukocyte Esterase (Negative) Urine WBC (Auto) (0-5) /hpf Urine RBC (Auto) (0-4) /hpf U Hyaline Cast (Auto) (0-5) /lpf U Epithel Cells (Auto) (0-5) /lpf Urine Bacteria (Auto) (Negative) Granular Casts (0) /lpf Urine Yeast Carbamazepine (4-12) mcg/ml COVID-19 Eval Order SARS-CoV-2, RNA, NAAT NEGATIVE (NEGATIVE) Blood Type AB Positive Antibody Screen NEGATIVE Administered Medications Parenteral Electrolytes (Normosol-R) 1,000 mls @ 125 mls/hr IV .Q8H KAYODE Stop: 08/20/20 14:29 Last Admin: 07/21/20 15:09 Dose: 125 mls/hr Documented by: [id number] Ondansetron HCl (Ondansetron Inj 2 Mg/Ml 2 Ml Vial) 4 mg IV Q4H PRN PRN Reason: Nausea Stop: 08/20/20 14:06 Last Admin: 07/21/20 16:38 Dose: 4 mg Documented by: [id number] Discontinued Medications Acetaminophen (Acetaminophen 1000 Mg/100 Ml Iv) 1,000 mg IV NOW STA Stop: 07/21/20 10:33 Last Admin: 07/21/20 10:43 Dose: 1,000 mg Documented by: [id number] Sodium Chloride (Nss) 500 mls @ 999 mls/hr IV .Q31M KAYODE Stop: 07/21/20 11:15 Last Infusion: 07/21/20 11:25 Dose: 0 mls/hr Documented by: [id number] Admin: 07/21/20 10:43 Dose: 999 mls/hr Documented by: [id number] Cefepime HCl (Maxipime) 2,000 mg in 20 mls @ 5 mls/min IV NOW STA; Protocol Stop: 07/21/20 11:07 Last Admin: 07/21/20 11:49 Dose: 5 mls/min Documented by: [id number] Sodium Chloride (Nss 1000ml) 1,000 mls @ 999 mls/hr IV .Q1H1M ONE Stop: 07/21/20 12:16 Last Infusion: 07/21/20 13:07 Dose: 0 mls/hr Documented by: [id number] Admin: 07/21/20 11:49 Dose: 999 mls/hr Documented by: [id number] Pantoprazole Sodium (Protonix Bolus/Drip) 0 mls @ 1 mls/hr IV ONE STA Stop: 07/21/20 11:17 Last Admin: 07/21/20 12:41 Dose: Not Given Documented by: [id number] Pantoprazole Sodium 80 mg/ (Dextrose) 120 mls @ 480 mls/hr IV 1200 ONE Stop: 07/21/20 12:14 Last Infusion: 07/21/20 12:05 Dose: 0 mls/hr Documented by: [id number] Admin: 07/21/20 11:49 Dose: 480 mls/hr Documented by: [id number] Pantoprazole Sodium 40 mg/ (Dextrose) 100 mls @ 20 mls/hr IV Q5H KAYODE Stop: 07/21/20 17:29 Last Infusion: 07/21/20 14:46 Dose: 0 mg/hr, 0 mls/hr Documented by: [id number] Admin: 07/21/20 11:49 Dose: 8 mg/hr, 20 mls/hr Documented by: [id number] Lactated Ringer's (Lr) 1,000 mls @ 999 mls/hr IV .Q1H1M STA Stop: 07/21/20 13:38 Last Infusion: 07/21/20 13:47 Dose: 0 mls/hr Documented by: [id number] Admin: 07/21/20 12:44 Dose: 999 mls/hr Documented by: [id number] Ondansetron HCl (Ondansetron Inj 2 Mg/Ml 2 Ml Vial) 4 mg IV NOW STA Stop: 07/21/20 10:33 Last Admin: 07/21/20 10:43 Dose: 4 mg Documented by: [id number] Imaging Data Radiologist's Impression: SINGLE VIEW CHEST CLINICAL HISTORY: Generalized abdominal pain. FINDINGS: An AP, portable, upright chest radiograph is compared to chest x-ray and chest CT dated 09/30/2017. The examination is degraded by portable technique and apical lordotic positioning. The heart is enlarged. The pulmonary vasculature is noncongested. There is a large hiatal hernia. Chronic residual thickening is similar to previous. Atelectasis is noted at the left lung base. No airspace consolidation or large pleural effusion is identified. No pneumothorax is seen. The skeletal structures are osteopenic. The bony thorax is grossly intact. Arthritic change is seen in the shoulders and thoracic spine. IMPRESSION: 1. Cardiomegaly with no acute cardiopulmonary abnormality. 2. Large hiatal hernia. CT SCAN OF THE ABDOMEN AND PELVIS WITHOUT IV CONTRAST CLINICAL HISTORY: Upper abdominal pain. COMPARISON STUDY: Fluoroscopic upper GI series dated 01/31/2009. Chest CT dated 09/30/2017. TECHNIQUE: CT scan of the abdomen and pelvis is performed from the lung bases to the proximal femora. Images are reviewed in the axial, sagittal, and coronal planes. IV contrast was not administered for this examination due to poor renal function. A dose lowering technique was utilized adhering to the principles of ALARA. CT DOSE: 2002.35 mGy.cm FINDINGS: Lung bases: The heart is normal in size and without pericardial effusion. The coronary arteries are densely calcified. There is a small right pleural effusion with segmental atelectasis at the right lung base. There is subsegmental atelectasis at the left lung base. There is a large hiatal hernia, with the majority of the stomach located in the thoracic cavity. Liver: The unenhanced liver is normal in size, contour, and attenuation. There is no intrahepatic biliary ductal dilatation. Gallbladder: Surgically absent noting clips in the gallbladder fossa. Spleen: Normal in size and attenuation. Pancreas: The unenhanced pancreas is moderately atrophic and grossly unremarkable. Adrenal glands: A 2.0 cm right adrenal nodule is unchanged and meets CT criteria for a fat-containing adenoma. The left adrenal gland is unremarkable. Kidneys: The unenhanced kidneys demonstrate cortical atrophy and are without hydronephrosis. There are no renal calculi identified. There is no evidence of contour deforming renal mass lesion. Abdominal vasculature: The abdominal aorta is normal in course and caliber. Bowel: There is no bowel obstruction. There is mild colonic diverticulosis without CT evidence of acute diverticulitis. The appendix is well-visualized and normal. Peritoneum: There is no intraperitoneal free air or abdominal ascites. There is a small fat-containing umbilical hernia. Lymphadenopathy: None. Pelvic viscera: The bladder, prostate, and seminal vesicles are normal as visualized. There is a small fat-containing right inguinal hernia. Skeletal structures: The skeletal structures are osteopenic. There is moderate lumbosacral spondylosis. Large posterior disc osteophyte complexes are seen at T12-L1 and L5-S1. Advanced degenerative change and deformity is noted in the left hip. There are numerous calcified joint bodies. No lytic or blastic lesions are seen. IMPRESSION: 1. There are no acute infectious or inflammatory findings in the abdomen or pelvis. 2. Large hiatal hernia, with the majority of the stomach located in the thoracic cavity. 3. Small right pleural effusion with segmental atelectasis at the right lung base. 4. Additional findings as above. Discharge Plan Visit Data Chief Complaint: Abdominal Pain ED Provider: Patrice Reese Discharge Problem: Hypotension, Anemia, Leukocytosis, Weakness, OCTAVIO (acute kidney injury), Acute GI bleeding Patient Disposition: Admitted As Inpatient Condition: Fair Discharge Instructions Interventions: ED Discharge Assessment Last Done: 07/21/20 13:37 Discharge Problem: Hypotension Qualifiers: Hypotension type: unspecified hypotension type Qualified Code(s): I95.9 - Hypotension, unspecified Anemia Qualifiers: Anemia type: unspecified type Qualified Code(s): D64.9 - Anemia, unspecified Leukocytosis Qualifiers: Leukocytosis type: unspecified Qualified Code(s): D72.829 - Elevated white blood cell count, unspecified
[2020-07-21] MEDS ORDERED: SODIUM CHLORIDE 0.9% 500 ML IV SCH (10:45)
[2020-07-21 10:46] LABS: Basophils # (auto) 0.01 K/uL (0-0.2); Basophils % (auto) 0.1 %; Hematocrit (blood only) 28.4 % (42-52); Hemoglobin 9.7 g/dL (14.0-18.0); Immature Granulocytes # (auto) 0.04 K/uL (0.00-0.02); Immature Granulocytes % (auto) 0.3 %; Lymphocytes # (auto) 0.62 K/uL (1.2-3.4); Lymphocytes % (auto) 4.3 %; Mean Corpuscular Hemoglobin 37.6 pg (25-34); Mean Corpuscular Hgb Conc 34.2 g/dL (32-36); Mean Corpuscular Volume 110.1 fL (80-100); Mean Platelet Volume 9.9 fL (7.4-10.4); Monocytes # (auto) 0.85 K/uL (0.11-0.59); Monocytes % (auto) 5.9 %; Neutrophils # (auto) 12.77 K/uL (1.4-6.5); Neutrophils % (auto) 89.4 %; Platelet Count 205 K/uL (130-400); RDW Coefficient of Variation 14.1 % (11.5-14.5); RDW Standard Deviation 55.9 fL (36.4-46.3); Red Blood Count 2.58 M/uL (4.7-6.1); White Blood Count 14.29 K/uL (4.8-10.8)
[2020-07-21 11:01] LABS: Macrocytosis Present
--- NOTE | 2020-07-21 11:01 | XRay Report ---
SINGLE VIEW CHEST CLINICAL HISTORY: Generalized abdominal pain. FINDINGS: An AP, portable, upright chest radiograph is compared to chest x-ray and chest CT dated 09/17. The examination is degraded by portable technique and apical lordotic positioning. The heart is enlarged. The pulmonary vasculature is noncongested. There is a large hiatal hernia. Chronic resid ual thickening is similar to previous. Atelectasis is noted at the left lung base. No airspace consol idation or large pleural effusion is identified. No pneumothorax is seen. The skeletal structures are osteopenic. The bony thorax is grossly intact. Arthritic change is seen in the shoulders and thoraci c spine. IMPRESSION: 1. Cardiomegaly with no acute cardiopulmonary abnormality. 2. Large hiatal hernia. ACT 112: Negative or not required by law. Electronically signed by: Patrice Leonard M.D. 07/21/2020 11:00 AM
[2020-07-21 11:02] LABS: Albumin Level 3.4 gm/dl (3.4-5.0); BUN Creatinine Ratio 17.4 (10-20); Calcium 8.6 mg/dl (8.5-10.1); Creatinine Clr Calc Pharmacy 25.1 ml/min; Est GFR (African American) 16.8; Est GFR (Non-African American) 14.5; Magnesium 2.1 mg/dl (1.8-2.4); Potassium 3.3 mmol/L (3.5-5.1)
[2020-07-21 11:03] LABS: Appearance Urine Turbid (Clear); Bacteria Urine Automated Negative (Negative); Blood Urine Trace (Negative); Color Urine Dark Yellow; Epithelial Cell Urine Auto >30 /lpf (0-5); Glucose Urine UA Negative (Negative); Ketones Urine Trace (Negative); Leukocyte Esterase Urine Trace (Negative); Nitrite Urine Negative (Negative); Protein Urine 1+ (Negative); RBC Urine Automated 0-4 /hpf (0-4); Specific Gravity Urine 1.027 (1.000-1.030); Urobilinogen Urine Negative (Negative)
[2020-07-21] MEDS ORDERED: CEFEPIME 2,000 MG/20 ML VIAL IV STA (11:04)
[2020-07-21 11:07] LABS: Albumin Globulin Ratio 0.8 (0.9-2); Bilirubin,Total 0.6 mg/dl (0.2-1); Globulin 4.3 gm/dl (2.5-4.0); Total Protein 7.7 gm/dl (6.4-8.2); Troponin I 0.025 ng/ml (0-0.045)
[2020-07-21 11:07] LABS: Bilirubin Urine 1+ (Negative)
[2020-07-21] MEDS ORDERED: PANTOPRAZOLE BOLUS/DRIP 1 EA IV STA (11:16)
[2020-07-21] MEDS ORDERED: SODIUM CHLORIDE 0.9% 1000ML 1,000 ML IV ONE (11:16)
[2020-07-21 11:18] LABS: Cast Urine Automated >30 /lpf (0-5)
[2020-07-21] MEDS ORDERED: PANTOprazole 80 MG in DEXTROSE 5% 100 ML IV ONE (12:00)
[2020-07-21] MEDS ORDERED: PANTOprazole 40 MG in DEXTROSE 5% 100 ML IV SCH (12:30)
--- NOTE | 2020-07-21 12:36 | CT Scan Report ---
CT SCAN OF THE ABDOMEN AND PELVIS WITHOUT IV CONTRAST CLINICAL HISTORY: Upper abdominal pain. COMPARISON STUDY: Fluoroscopic upper GI series dated 01/31/2009. Chest CT dated 09/30/2017. TECHNIQUE: CT scan of the abdomen and pelvis is performed from the lung bases to the proximal femora. Images are reviewed in the axial, sagittal, and coronal planes. IV contrast was not administered for this examination due to poor renal function. A dose lowering technique was utilized adhering to the principles of ALARA. CT DOSE: 2002.35 mGy.cm FINDINGS: Lung bases: The heart is normal in size and without pericardial effusion. The coronary arteries are d ensely calcified. There is a small right pleural effusion with segmental atelectasis at the right rob g base. There is subsegmental atelectasis at the left lung base. There is a large hiatal hernia, with the majority of the stomach located in the thoracic cavity. Liver: The unenhanced liver is normal in size, contour, and attenuation. There is no intrahepatic yuri iary ductal dilatation. Gallbladder: Surgically absent noting clips in the gallbladder fossa. Spleen: Normal in size and attenuation. Pancreas: The unenhanced pancreas is moderately atrophic and grossly unremarkable. Adrenal glands: A 2.0 cm right adrenal nodule is unchanged and meets CT criteria for a fat-containing adenoma. The left adrenal gland is unremarkable. Kidneys: The unenhanced kidneys demonstrate cortical atrophy and are without hydronephrosis. There ar e no renal calculi identified. There is no evidence of contour deforming renal mass lesion. Abdominal vasculature: The abdominal aorta is normal in course and caliber. Bowel: There is no bowel obstruction. There is mild colonic diverticulosis without CT evidence of acu te diverticulitis. The appendix is well-visualized and normal. Peritoneum: There is no intraperitoneal free air or abdominal ascites. There is a small fat-containin g umbilical hernia. Lymphadenopathy: None. Pelvic viscera: The bladder, prostate, and seminal vesicles are normal as visualized. There is a smal l fat-containing right inguinal hernia. Skeletal structures: The skeletal structures are osteopenic. There is moderate lumbosacral spondylosi s. Large posterior disc osteophyte complexes are seen at T12-L1 and L5-S1. Advanced degenerative sharp ge and deformity is noted in the left hip. There are numerous calcified joint bodies. No lytic or asael stic lesions are seen. IMPRESSION: 1. There are no acute infectious or inflammatory findings in the abdomen or pelvis. 2. Large hiatal hernia, with the majority of the stomach located in the thoracic cavity. 3. Small right pleural effusion with segmental atelectasis at the right lung base. 4. Additional findings as above. ACT 112: Negative or not required by law. Electronically signed by: Patrice Leonard M.D. 07/21/2020 12:35 PM
[2020-07-21] MEDS ORDERED: LACTATED RINGER'S 1,000 ML IV STA (12:38)
--- NOTE | 2020-07-21 13:14 | History & Physical Report ---
Date of Service July 21, 2020 Assessment & Plan (1) Acute renal failure: Baseline Cr ~1.00 - 1.35, eGFR 60 - 75. - Cr on admission was 4.1 with hyaline and granular casts. This points towards dehydration leading to possible ATN. Likely compounded by chlorthalidone, enalapril, and furosemide. - Hold above medications - IV fluids - Nephrology consult - Renally-dose other medications (2) Anemia: Long-standing macrocytic anemia with recent B12/folate in 02/2020 both normal. Baseline hgb ~12-14. - ED provider was concerned about upper GI bleed given hgb was 9.7 on admission with heme-positive. -> Started on PPI gtt in the ED. - For me, he denies melena, but does reports some small amounts of bright red blood per rectum over the last few days, that he associates with painful passage of BMs. Concern more for hemorrhoidal bleed or anal fissure which could account of heme(+) stool in absence of clear melenic or bloody stools. - Will check one more hgb tonight, but defer GI consult or PPI unless evidence of active bleeding. (3) Leukocytosis: No focal sign of infection with non-infective urine and CXR. Temperature of 38.0 in the ED. Cefepime x 1 dose given in the ED on 07/21 at 11:50pm. Think possibly more reactive from ARF. - Follow blood & urine cultures - Hold abx at this time (4) HTN (hypertension): Presently borderline hypotensive in the ED; likely from hypovolemia. - Will defer BP meds for now - Monitor (5) Chest pain: Present since yesterday's fall. Pain occurs with chest wall palpation. Tro ponin and EKG normal. Negative stress test in 2018. Likely MSK in nature. - Tylenol PRN - Can add topical treatment as well if needed (6) Seizure disorder: Follows with Vee Mcnulty. - Carbamazepine level was 12.0 on admission (upper range of normal) - Hold carbamazepine for now and recheck level in 1-2 days. (7) Paranoid schizophrenia, chronic condition: No presents issues. - Hold venlafaxine given renal injury - Continue topiramate (8) Depression: - As above with schizophrenia (9) HLD (hyperlipidemia): - Hold statin for now (10) DVT prophylaxis: SCDs - Hold heparin until hemoglobin & GI symptoms monitored for 24-48 hours History of Present Illness Primary Care Provider: Kendaljunior Diaz, DO 65yo M w/ hx of HTN and schizophrenia who presents with chest pain, back pain, fatigue, and general weakness, and was found to be in acute renal failure. Yesterday, he fell at a friend's house. EMS presented and got him back into a chair, but he declined coming to the hospital. However, this morning, he was too weak to get out fo the chair, and he called EMS again. EMS arrived at his house, and he was unable to ambulate and required assistance to get into the gurney. In the ED, he was found to have a mild temperature and acute renal failure. He also was found to have a mild anemia that was/is worse than his baseline hgb of ~11.5. He had heme-positive stool. He reports over the last 3-4 days, he's had some pain with BMs and small amounts of bright red blood with passage of BMs. Allergies Allergy/AdvReac Type Severity Reaction Status Date / Time loxapine Allergy Mild restless Verified 07/21/20 10:40 and nervous morphine Allergy Mild nausea/vomi Verified 07/21/20 10:40 ting Home Medications Medication Instructions Recorded Confirmed Type cholecalciferol (vitamin D3) 2,000 unit PO QAM 01/13/19 07/21/20 History [Vitamin D3] levothyroxine 50 mcg PO QAM 01/13/19 07/21/20 History kfcxepdopyoj-ftnigdio-wpyrhi 1 tab PO QAM 01/13/19 07/21/20 History [Multivitamin 50 Plus] simvastatin 20 mg PO HS 01/13/19 07/21/20 History venlafaxine 150 mg PO QAM 01/13/19 07/21/20 History chlorthalidone 25 mg PO DAILY 07/21/20 07/21/20 History enalapril maleate 20 mg PO BID 07/21/20 07/21/20 History folic acid 1 mg PO DAILY 07/21/20 07/21/20 History furosemide 20 mg PO BID 07/21/20 07/21/20 History metoprolol tartrate 100 mg PO BID 07/21/20 07/21/20 History topiramate 50 mg PO DAILY 07/21/20 07/21/20 History Past Med/Surg History Medical History Anemia Anxiety Depression GERD (gastroesophageal reflux disease) Hyperlipidemia Hypertension Hypothyroidism Osteoarthritis of hip Paranoid schizophrenia, chronic condition Seizure disorder last was 2002--on tegretol, follows with Dr. Vee Mcnulty Vitamin D deficiency Surgical History History of appendectomy History of cholecystectomy History of colonoscopy History of umbilical hernia repair History of wisdom tooth extraction Family History Father Family history of diabetes mellitus Mother Family history of diabetes mellitus Brother Family history of diabetes mellitus Other No family history of adverse response to anesthesia Social History Smoking Status: Never smoker Second Hand Exposure: Yes (mom smoked); Hx Alcohol Use: Yes Alcohol type: other Hx Substance Use: Yes (last used 40yrs ago) Last Used Substance Other:: last used 40yrs ago Preferred Language: Turkmen Communication Ability: Effective Specialized Developer Required: No Beliefs That Will Affect Care: None Current Living Situation: Alone Other Information That Helps Us Care for You: No Feels Safe at Home: Yes Safety Concerns: Feels Safe At This Time Assistive Devices: Cane, Glasses and Walker Review of Systems Review of Systems: All systems reviewed & are unremarkable except as noted in HPI & below Physical Exam Constitutional: WD/WN, vitals as above Eyes: EOM intact bilaterally; no conjunctival abnormality ENMT: external ear and nose normal, oropharynx normal Neck: trachea midline, no thyromegaly normal visual inspection Respiratory: normal respiratory effort, lungs clear to auscultation no respiratory distress Cardiovascular: RRR, no murmur, no edema Gastrointestinal (Abdomen): Inspection/Auscultation: abdomen normal to inspection; abdomen not distended Musculoskeletal: no cyanosis or clubbing, extremities motor strength 5/5 Skin: no rashes, warm and dry Neurologic: moves all extremities and awake Psychiatric: Orientation: alert, oriented to person and cooperative Results & Data Results & Data ([facility]) Vital Signs (Past 12 Hours) Vital Signs Temp Pulse Pulse Resp BP BP Pulse Ox 07/21/20 12:25 98 H 22 93/48 L 93 07/21/20 11:27 101 H 20 98/38 L 93 07/21/20 10:36 92 07/21/20 10:30 38 C H 104 H 22 102/60 92 Code Status & VTE Plan VTE Prophylaxis Plan VTE Prophylaxis will be ordered: Yes PG Care Time/CCT Total # of Minutes Spent Total Time Spent with Patient: Total time spent is greater than 50% in coordination of care (as documented) at patient's floor/unit and/or counseling patient: Coding Level of Care Code 01596 Initial Inpt Care Lvl 3 Diagnoses Acute renal failure N17.9 Anemia D64.9 Leukocytosis D72.829 HTN (hypertension) I10 Chest pain R07.9 Seizure disorder G40.909 Paranoid schizophrenia, chronic condition F20.0 Depression F32.9 HLD (hyperlipidemia) E78.5 DVT prophylaxis Z29.9
[2020-07-21] MEDS: NORMOSOL-R 1,000 ML IV SCH ×2 (15:09→22:59)
[2020-07-21] MEDS: ONDANSETRON INJ 2 MG/ML 2 ML VIAL IV PRN (16:38)
[2020-07-21] MEDS: METOPROLOL TARTRATE 25 MG TAB PO SCH (21:11)
[2020-07-21] MEDS ORDERED: CEFEPIME CONSULT ACTIVE PRN (23:08)
[2020-07-21] MEDS: ACETAMINOPHEN 500 MG TAB PO PRN (23:28)
--- NOTE | 2020-07-22 04:10 | Communication Note ---
Date of Service: July 22, 2020 Blood cultures came back positive for GPC's in clusters. (MRSA) transition the patient to daptomycin for empiric antibiotic therapy. Patient still on Normosol at 125, tachycardia appears to be downtrending, blood pressures remain about the same. -A.m. labs ordered -Daptomycin -Continue Normosol -Monitor closely -Repeat blood cultures in 2 to 3 days, -Echo to rule out endocarditis Resident Activity Tracking Resident Involvement: Resident Care Provided Care Provided: Adult Hospital Medicine
[2020-07-22] MEDS ORDERED: DAPTOmycin 600 MG in SYRINGE 0 ML IV ONE (04:30)
[2020-07-22 04:46] LABS: Hematocrit (blood only) 25.5 % (42-52); Hemoglobin 8.7 g/dL (14.0-18.0); Mean Corpuscular Hemoglobin 37.5 pg (25-34); Mean Corpuscular Hgb Conc 34.1 g/dL (32-36); Mean Corpuscular Volume 109.9 fL (80-100); Mean Platelet Volume 9.3 fL (7.4-10.4); Platelet Count 152 K/uL (130-400); RDW Coefficient of Variation 14.1 % (11.5-14.5); Red Blood Count 2.32 M/uL (4.7-6.1); White Blood Count 13.95 K/uL (4.8-10.8)
[2020-07-22 05:07] LABS: Albumin Globulin Ratio 0.7 (0.9-2); Albumin Level 2.8 gm/dl (3.4-5.0); BUN Creatinine Ratio 19.6 (10-20); Bilirubin,Total 0.7 mg/dl (0.2-1); Calcium 7.8 mg/dl (8.5-10.1); Creatinine Clr Calc Pharmacy 25.7 ml/min; Est GFR (African American) 17.3; Magnesium 2.3 mg/dl (1.8-2.4); Potassium 3.8 mmol/L (3.5-5.1); Total Protein 6.8 gm/dl (6.4-8.2)
[2020-07-22] MEDS: LEVOTHYROXINE SODIUM 50 MCG TABLET PO SCH (06:19)
[2020-07-22] MEDS: NORMOSOL-R 1,000 ML IV SCH ×2 (08:12→16:59)
[2020-07-22] MEDS: FOLIC ACID 1 MG TAB PO SCH (08:12)
[2020-07-22] MEDS: METOPROLOL TARTRATE 25 MG TAB PO SCH ×2 (08:12→21:01)
[2020-07-22] MEDS: TOPIRAMATE 50 MG TAB PO SCH (08:12)
--- NOTE | 2020-07-22 09:29 | CT Scan Report ---
CT chest wo con CT DOSE: 1315.02 mGy.cm HISTORY: Concern for septic emboli TECHNIQUE: Multiaxial CT images of the chest were performed without contrast. A dose lowering techni que was utilized adhering to the principles of ALARA. COMPARISON: Chest CT 09/30/2017. FINDINGS: There is a small right pleural effusion. No pericardial effusion. The heart remains mildly enlarged. There is a large hiatus hernia containing the majority of the stomach. This remains unchang ed. Normal caliber esophagus. No mediastinal hilar lymphadenopathy. Moderate coronary artery calcific ations. Normal caliber thoracic aorta. Limited views the upper abdomen demonstrate hepatic steatosis and a normal spleen. There is a 1.5 cm right adrenal gland nodule which favors a benign adenoma. No p neumothorax. Mild respiratory motion artifact. The central airways are patent. Small area of consolid ation within the right lower lobe posteriorly. This favors compressive atelectasis from the pleural e ffusion. A few additional small bibasilar linear densities also favor subsegmental atelectasis. No ca vitary nodules identified. There is nonspecific. Prevertebral edema/fat stranding anterior to the T8- T9 and T10-T11 vertebral bodies where there are large anterior osteophytes. There is no clear endplat e erosive change. However, an early discitis/osteomyelitis cannot be excluded. There is also a puncta te focus of gas within the anterior prevertebral soft tissues at the T10-11 level. IMPRESSION: 1. No change in the small right pleural effusion and right lower lobe consolidation. This favors comp ressive atelectasis from the pleural effusion. A pneumonia could also have a similar appearance in th e appropriate clinical setting but is considered less likely. 2. Prevertebral edema/fat stranding anterior to the T8-T9 and T10-T11 vertebral bodies where there ar e large anterior osteophytes. There is no clear endplate erosive change. However, an early discitis/o steomyelitis cannot be excluded. ACT 112: Negative or not required by law. Electronically signed by: Andrade Mcfadden M.D. 07/22/2020 9:28 AM
[2020-07-22] MEDS ORDERED: CEFEPIME 2,000 MG in SYRINGE 0 ML IV SCH (12:00)
--- NOTE | 2020-07-22 13:06 | Nephrology Consultation ---
Date of Consultation July 22, 2020 Assessment & Plan (1) Acute renal failure: * Baseline Cr 1.35 mg/dL in February * Clinical presentation consistent with ATN and prerenal physiology. * Chlorthalidone, enalapril, and furosemide have been held. * Abd/plv CT reviewed: no obstruction. * UA/micro: +hyaline and granular casts. No RBC/WBC. * Non-oliguric. * Electrolytes acceptable. * Remains slightly volume depleted. * Continue normosol to encouraged a positive fluid balance. * Medications are appropriately dosed for kidney function * Monitor CK. (2) Anemia: * No signs of active bleeding. Monitor closely. (3) Leukocytosis: * Monitor CK on daptomycin. * Blood cultures +MRSA. * TTE and follow up cultures pending. (4) HTN (hypertension): * Remains relatively hypotensive. Antihypertensives held. History of Present Illness Reason for Consultation: OCTAVIO Requesting Physician: Jonn Bowman MD Attending Physician: Jonn Bowman MD History of Present Illness Mr. Renard He is a 65-year-old male with hypertension, seizure disorder, and schizophrenia who presented to the ER at [facility] yesterday with chest pain, back pain, fatigue, and general weakness. On 07/20/20, he fell at a friend's house and EMS were called but he declined to come the hospital. Unfortunately yesterday, he was too weak to transfer himself from a chair. Renard was found to be slightly hypotensive and volume depleted on admission. CK 1200. He had a mild lactic acidosis and acute kidney injury. Evaluation revealed MRSA bacteremia which is being treated with daptomycin. Baseline creatinine was 1.35 mg/dL in February. Creatinine was elevated at 4.0 mg/dL on admission. Electrolytes normal. Renard has been non-oliguric. Hemoglobin lower than baseline. CT abdome n and pelvis demonstrated mild symmetric cortical atrophy but otherwise normal kidneys and no evidence of obstruction. UA notable for +1 protein, +1 blood. Microscopy demonstrated 1-5 WBC, 0-4 RBC, granular and hyaline casts. Allergies Allergy/AdvReac Type Severity Reaction Status Date / Time loxapine Allergy Mild restless Verified 07/21/20 10:40 and nervous morphine Allergy Mild nausea/vomi Verified 07/21/20 10:40 ting Home Medications Medication Instructions Recorded Confirmed Type cholecalciferol (vitamin D3) 2,000 unit PO QAM 01/13/19 07/21/20 History [Vitamin D3] levothyroxine 50 mcg PO QAM 01/13/19 07/21/20 History lvcjmyvitjvn-yisokvgv-dsobik 1 tab PO QAM 01/13/19 07/21/20 History [Multivitamin 50 Plus] simvastatin 20 mg PO HS 01/13/19 07/21/20 History venlafaxine 150 mg PO QAM 01/13/19 07/21/20 History chlorthalidone 25 mg PO DAILY 07/21/20 07/21/20 History enalapril maleate 20 mg PO BID 07/21/20 07/21/20 History folic acid 1 mg PO DAILY 07/21/20 07/21/20 History furosemide 20 mg PO BID 07/21/20 07/21/20 History metoprolol tartrate 100 mg PO BID 07/21/20 07/21/20 History topiramate 50 mg PO DAILY 07/21/20 07/21/20 History Patient History Medical History Anemia Anxiety Depression GERD (gastroesophageal reflux disease) Hyperlipidemia Hypertension Hypothyroidism Osteoarthritis of hip Paranoid schizophrenia, chronic condition Seizure disorder last was 2002--on tegretol, follows with Dr. Vee Mcnulty Vitamin D deficiency Surgical History History of appendectomy History of cholecystectomy History of colonoscopy History of umbilical hernia repair History of wisdom tooth extraction Family History Father Family history of diabetes mellitus Mother Family history of diabetes mellitus Brother Family history of diabetes mellitus Other No family history of adverse response to anesthesia Social History Smoking Status: Never smoker Second Hand Exposure: Yes (mom smoked); Hx Alcohol Use: Yes Alcohol type: other Hx Substance Use: Yes (last used 40yrs ago) Last Used Substance Other:: last used 40yrs ago Preferred Language: Malaysian Communication Ability: Effective Guard Sergeant Required: No Beliefs That Will Affect Care: None Current Living Situation: Alone Other Information That Helps Us Care for You: No Feels Safe at Home: Yes Safety Concerns: Feels Safe At This Time Assistive Devices: Glasses Review of Systems Review of Systems: All systems reviewed & are unremarkable except as noted in HPI & below Constitutional: + fatigue and + weakness; no weight loss, no weight gain and no problem reported Eyes: no problem reported Ear, Nose, Mouth, Throat: no problem reported Respiratory: no problem reported Cardiovascular: no problem reported Gastrointestinal: no problem reported Musculoskeletal: no problem reported Integumentary: no problem reported Neurologic: no problem reported Psychiatric: no problem reported Endocrine: no problem reported Hematologic / Lymphatic: no problem reported Physical Exam Constitutional: well developed; no acute distress Eyes: no scleral abnormality and no corneal abnormality ENMT: Mouth: no oral mucosal abnormality and oral mucous membranes not dry Neck: normal visual inspection and trachea midline Respiratory: normal respiratory effort Auscultation: lungs clear to auscultation bilaterally Cardiovascular: Rate/Rhythm: regular rate Heart Sounds: normal S1 and normal S2 Extremities: no edema Musculoskeletal: Extremities: no cyanosis and no clubbing Skin: normal turgor; no lesions Neurologic: Motor/Sensory: no tremor and no asterixis Psychiatric: Orientation: alert and oriented x 3 Results & Data ([facility]) Vital Signs (Past 12 Hours) Vital Signs Temp Pulse Pulse Resp BP Pulse Ox 07/22/20 11:12 36.8 C 96 H 20 95/58 L 96 07/22/20 07:13 37.5 C 105 H 20 102/65 92 07/22/20 05:05 100/65 07/22/20 02:56 37.2 C 106 H 18 90/56 L 92 Laboratory Results Laboratory Results - last 24 hr 07/21/20 07/21/20 07/21/20 10:23 11:27 14:30 WBC RBC Hgb Hct MCV MCH MCHC RDW Std Deviation RDW Coeff of Peng Plt Count MPV Sodium Potassium Chloride Carbon Dioxide Anion Gap BUN Creatinine Est Cr Clr Drug Dosing Est GFR ( Amer) Est GFR (Non-Af Amer) BUN/Creatinine Ratio Glucose Lactate 2.7 H* Calcium Magnesium Total Bilirubin AST ALT Alkaline Phosphatase Total Creatine Kinase 1202 H Total Protein Albumin Globulin Albumin/Globulin Ratio Carbamazepine Hepatitis C Ab Screen Bld Cult Staph aureus PCR Positive A Blood Culture MRSA PCR Positive A* 07/21/20 07/22/20 07/22/20 20:58 04:31 04:31 WBC 13.95 H RBC 2.32 L Hgb 9.3 L 8.7 L Hct 25.5 L MCV 109.9 H MCH 37.5 H MCHC 34.1 RDW Std Deviation 57.0 H RDW Coeff of Peng 14.1 Plt Count 152 MPV 9.3 Sodium 139 Potassium 3.8 D Chloride 107 Carbon Dioxide 24 Anion Gap 8.0 BUN 78 H Creatinine 3.97 H Est Cr Clr Drug Dosing 25.7 Est GFR ( Amer) 17.3 Est GFR (Non-Af Amer) 15.0 BUN/Creatinine Ratio 19.6 Glucose 165 H Lactate Calcium 7.8 L Magnesium 2.3 Total Bilirubin 0.7 AST 219 H ALT 59 Alkaline Phosphatase 52 Total Creatine Kinase Total Protein 6.8 Albumin 2.8 L Globulin 4.0 Albumin/Globulin Ratio 0.7 L Carbamazepine Hepatitis C Ab Screen Bld Cult Staph aureus PCR Blood Culture MRSA PCR 07/22/20 07/22/20 07/22/20 04:31 04:31 04:38 WBC RBC Hgb Hct MCV MCH MCHC RDW Std Deviation RDW Coeff of Peng Plt Count MPV Sodium Potassium Chloride Carbon Dioxide Anion Gap BUN Creatinine Est Cr Clr Drug Dosing Est GFR ( Amer) Est GFR (Non-Af Amer) BUN/Creatinine Ratio Glucose Lactate 1.8 Calcium Magnesium Total Bilirubin AST ALT Alkaline Phosphatase Total Creatine Kinase Total Protein Albumin Globulin Albumin/Globulin Ratio Carbamazepine 10.7 Hepatitis C Ab Screen Neg Bld Cult Staph aureus PCR Blood Culture MRSA PCR PG Care Time/CCT Total # of Minutes Spent Total Time Spent with Patient: Total time spent is greater than 50% in coordination of care (as documented) at patient's floor/unit and/or counseling patient: Coding Level of Care Code 00797 Inpt Consult Level 4 Diagnoses Acute renal failure N17.9 Anemia D64.9 Leukocytosis D72.829 HTN (hypertension) I10
--- NOTE | 2020-07-22 13:46 | XCELERA ---
[id number]
--- NOTE | 2020-07-22 16:50 | Hospitalist Progress Note ---
Date of Service July 22, 2020 Assessment & Plan (1) MRSA bacteremia: In blood cultures on admission. CT chest incidentally showed possible thoracic spine involvement. - Started on daptomycin on 07/22 for positive blood cultures. - Stop dapto and start vancomycin given CT chest on 07/22 indicates possible pneumonia. - Will get MRSA swab & procalcitonin to see if we can possibly rule out PNA component of infection. Cannot use linezolid given recent SNRI use, so our abx options are limited. Will see what ID thinks. (2) Acute renal failure: Baseline Cr ~1.00 - 1.35, eGFR 60 - 75. - Cr on admission was 4.1 with hyaline and granular casts. This points towards dehydration leading to possible ATN. Likely compounded by chlorthalidone, enalapril, and furosemide. - Hold above medications - IV fluids - Nephrology consulted - Agree with current plan. (3) Anemia: Long-standing macrocytic anemia with recent B12/folate in 02/2020 both normal. Baseline hgb ~12-14. - ED provider was concerned about upper GI bleed given hgb was 9.7 on admission with heme-positive. -> Started on PPI gtt in the ED. - For me, he denies melena, but does reports some small amounts of bright red blood per rectum over the last few days, that he associates with painful passage of BMs. Concern more for hemorrhoidal bleed or anal fissure which could account of heme(+) stool in absence of clear melenic or bloody stools. - Hgb down today. Also concern for hemolytic issue given his infection. Will get LDH, fibrinogen, smear. Consider GI if any further drop. (4) HTN (hypertension): Presently borderline hypotensive in the ED; likely from hypovolemia. - Will defer BP meds for now - Monitor (5) Chest pain: Present since yesterday's fall. Pain occurs with chest wall palpation. Troponin and EKG normal. Negative stress test in 2018. Likely MSK in nature. - Tylenol PRN - Can add topical treatment as well if needed (6) Seizure disorder: Follows with Vee Mcnulty. - Carbamazepine level was 12.0 on admission (upper range of normal) - Hold carbamazepine for now. (7) Paranoid schizophrenia, chronic condition: No presents issues. - Hold venlafaxine given renal injury - Continue topiramate (8) Depression: - As above with schizophrenia (9) HLD (hyperlipidemia): - Hold statin for now (10) DVT prophylaxis: SCDs - Hold heparin until hemoglobin & GI symptoms monitored for 24-48 hours Admission and Anticipated Discharge Date Admission Date: July 21, 2020 Subjective Feeling better today compared to yesterday. Reports no fevers/chills, chest pain, shortness of breath, abdominal pain, nausea, or vomiting. Physical Exam Constitutional: WD/WN, vitals as above Eyes: EOM intact bilaterally; no conjunctival abnormality ENMT: external ear and nose normal, oropharynx normal Neck: trachea midline, no thyromegaly normal visual inspection Respiratory: normal respiratory effort, lungs clear to auscultation no respiratory distress Cardiovascular: RRR, no murmur, no edema Gastrointestinal (Abdomen): Inspection/Auscultation: abdomen normal to inspection; abdomen not distended Musculoskeletal: no cyanosis or clubbing, extremities motor strength 5/5 Skin: no rashes, warm and dry (Thorough look from head to toes. No rashes or ulcers noted. Few scabs.) no ulcers and no erythema Neurologic: moves all extremities and awake Psychiatric: Orientation: alert, oriented to person and cooperative Results & Data Results & Data ([facility]) Vital Signs (Past 12 Hours) Vital Signs Temp Pulse Pulse Resp BP Pulse Ox 07/22/20 15:15 36.8 C 100 H 20 96/52 L 96 07/22/20 11:12 36.8 C 96 H 20 95/58 L 96 07/22/20 07:13 37.5 C 105 H 20 102/65 92 07/22/20 05:05 100/65 PG Care Time/CCT Total # of Minutes Spent Total Time Spent with Patient: Total time spent is greater than 50% in coordination of care (as documented) at patient's floor/unit and/or counseling patient: Coding Level of Care Code 00911 Subseq Hosp Care Lvl 3 Diagnoses MRSA bacteremia R78.81; B95.62 Acute renal failure N17.9 Anemia D64.9 HTN (hypertension) I10 Chest pain R07.9 Seizure disorder G40.909 Paranoid schizophrenia, chronic condition F20.0 Depression F32.9 HLD (hyperlipidemia) E78.5 DVT prophylaxis Z29.9
[2020-07-22] MEDS ORDERED: VANCOMYCIN CONSULT ACTIVE PRN (16:51)
--- NOTE | 2020-07-22 17:02 | Pharmacy Report ---
Pharmacy Abx Dose Short Note - Date of Service July 22, 2020 - Assessment & Plan Assessment 65 year old M receiving vancomycin for treatment of pneumonia in the setting of MRSA bacteremia Day # 1 of antimicrobial therapy. Plan Vancomycin * due to patient's OCTAVIO, will give vancomycin 2500 mg IV x 1 (20 mg/kg) * check random level tomorrow morning with labs * goal level of 15-20 mcg/mL for pneumonia Pharmacy will continue to follow and will adjust dose/frequency as necessary. Thank you.
[2020-07-22] MEDS ORDERED: VANCOMYCIN HCL 2,500 MG in SODIUM CHLORIDE 0.9% 500 ML IV ONE (18:00)
[2020-07-22 18:04] LABS: Hemoglobin 8.6 g/dL (14.0-18.0)
[2020-07-22 18:18] LABS: Fibrinogen > 860 mg/dl (184-400)
[2020-07-22 18:53] LABS: Folate (Folic Acid) > 20.00 ng/ml (>5.38); Vitamin B12 1087 pg/ml (193-986)
--- NOTE | 2020-07-22 19:25 | Magnetic Resonance Report ---
THORACIC SPINE MRI HISTORY: Abnormal CT. Thoracic discitis/osteomyelitis TECHNIQUE: Multiplanar multisequence MRI of the thoracic spine was performed without the use of contr ast. COMPARISON: Chest CT 07/22/2020. FINDINGS: Suboptimal evaluation of the thoracic spine due to significant motion artifact. Redemonstration of th e prevertebral soft tissue edema/swelling adjacent to the large anterior osteophytes at the T8-T9 and T10-11 levels. 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 No acute fractures identified within the thoracic spine. No subluxation. Mild d isc space narrowing throughout the thoracic spine. However, no definite endplate erosive change ident ified. No definite central canal narrowing. The thoracic spinal cord appears to demonstrate normal si gnal intensity. No large epidural or paraspinal fluid collections. IMPRESSION: 1. Suboptimal study due to motion artifact. Redemonstration of the nonspecific prevertebral soft tiss ue edema/swelling adjacent to the large anterior osteophytes at the T8-T9 and T10-11 levels. This cou ld be due to an infectious, inflammatory, or posttraumatic process. No definite erosive changes ident ified at this time. Therefore, an early osteomyelitis cannot be excluded. Short-term follow-up recomm ended to ensure stability/resolution. 2. No definite acute fracture or subluxation. ACT 112: Negative or not required by law. Electronically signed by: Andrade Mcfadden M.D. 07/22/2020 7:24 PM
[2020-07-22] MEDS: ACETAMINOPHEN 500 MG TAB PO PRN (21:00)
--- NOTE | 2020-07-22 21:11 | Electrocardiogram Report ---
Test Reason : Blood Pressure : / mmHG Vent. Rate : 104 BPM Atrial Rate : 104 BPM P-R Int : 236 ms QRS Dur : 112 ms QT Int : 338 ms P-R-T Axes : 044 013 014 degrees QTc Int : 444 ms Poor data quality, interpretation may be adversely affected Sinus tachycardia with 1st degree A-V block Possible Left atrial enlargement Borderline ECG When compared with ECG of 30-SEP-2017 16:15, Criteria for Inferior infarct are no longer Present Confirmed by Frank Pearson ([id number]) on 07/22/2020 9:11:40 PM Referred By: REFERRED SELF Confirmed By:Frank Pearson
[2020-07-23] MEDS: NORMOSOL-R 1,000 ML IV SCH ×3 (01:53→18:17)
[2020-07-23] MEDS: LEVOTHYROXINE SODIUM 50 MCG TABLET PO SCH (06:09)
[2020-07-23 08:05] LABS: Hematocrit (blood only) 23.7 % (42-52); Hemoglobin 8.1 g/dL (14.0-18.0); Mean Corpuscular Hemoglobin 37.2 pg (25-34); Mean Corpuscular Hgb Conc 34.2 g/dL (32-36); Mean Corpuscular Volume 108.7 fL (80-100); Mean Platelet Volume 10.4 fL (7.4-10.4); Platelet Count 146 K/uL (130-400); RDW Coefficient of Variation 14.2 % (11.5-14.5); RDW Standard Deviation 55.5 fL (36.4-46.3); Red Blood Count 2.18 M/uL (4.7-6.1); White Blood Count 8.06 K/uL (4.8-10.8)
[2020-07-23] MEDS: TOPIRAMATE 50 MG TAB PO SCH (08:30)
[2020-07-23] MEDS: FOLIC ACID 1 MG TAB PO SCH (08:30)
[2020-07-23] MEDS: METOPROLOL TARTRATE 25 MG TAB PO SCH ×3 (08:31→20:13)
[2020-07-23 08:45] LABS: BUN Creatinine Ratio 20.5 (10-20); Calcium 8.2 mg/dl (8.5-10.1); Creatinine Clr Calc Pharmacy 20.3 ml/min; Est GFR (Non-African American) 11.2; Magnesium 2.8 mg/dl (1.8-2.4); Potassium 3.7 mmol/L (3.5-5.1)
--- NOTE | 2020-07-23 10:35 | Nephrology Progress Note ---
Date of Service July 23, 2020 Assessment & Plan (1) Acute renal failure: * Baseline Cr 1.35 mg/dL in February * Clinical presentation consistent with ATN and prerenal physiology. * Some noted urinary retention overnight requiring straight cath this AM. Will monitor. * Chlorthalidone, enalapril, and furosemide have been held. * Abd/plv CT reviewed: no obstruction. * UA/micro: +hyaline and granular casts. No RBC/WBC. * Non-oliguric. * Electrolytes acceptable. * Remains volume depleted. * Continue normosol to encouraged a positive fluid balance. * Medications are appropriately dosed for kidney function * Monitor CK, repeat pending this AM. (2) Anemia: * No signs of active bleeding. * Iron deficiency noted. IV iron deferred due to bacteremia. (3) Leukocytosis: * Dapto switched to vancomycin this AM due to concern for possible PNA. * Blood cultures +MRSA on 07/21 and 07/22. * Repeat cultures pending. (4) HTN (hypertension): * Remains relatively hypotensive. Antihypertensives held. Admission and Anticipated Discharge Date Admission Date: July 21, 2020 Subjective No acute events overnight. Tmax 38.1. Urinary retention noted overnight. Straight cathed for 800 ml. No pain. Overall Renard notes that he feels much better than he did on admission. Denies dyspnea. Review of Systems Review of Systems: All systems reviewed & are unremarkable except as noted in HPI & below Physical Exam Constitutional: well developed; no acute distress Eyes: no scleral abnormality and no corneal abnormality ENMT: Mouth: no oral mucosal abnormality and oral mucous membranes not dry Neck: normal visual inspection and trachea midline Respiratory: normal respiratory effort Auscultation: lungs clear to auscultation bilaterally Cardiovascular: Rate/Rhythm: regular rate Heart Sounds: normal S1 and normal S2 Extremities: no edema Musculoskeletal: Extremities: no cyanosis and no clubbing Skin: normal turgor; no lesions Neurologic: Motor/Sensory: no tremor and no asterixis Psychiatric: Orientation: alert and oriented x 3 Results & Data ([facility]) Vital Signs (Past 12 Hours) Vital Signs Temp Pulse Pulse Resp BP Pulse Ox 07/23/20 08:37 20 07/23/20 07:34 36.7 C 100 H 26 H 124/77 95 07/22/20 23:26 37.2 C 95 H 20 90/53 L 92 Laboratory Results Laboratory Results - last 24 hr 07/22/20 07/22/20 07/22/20 17:29 17:29 17:29 WBC RBC Hgb 8.6 L Hct MCV MCH MCHC RDW Std Deviation RDW Coeff of Peng Plt Count MPV Peripher Smr Path Cons Pending Fibrinogen > 860 H Sodium Potassium Chloride Carbon Dioxide Anion Gap BUN Creatinine Est Cr Clr Drug Dosing Est GFR ( Amer) Est GFR (Non-Af Amer) BUN/Creatinine Ratio Glucose POC Glucose Calcium Magnesium Iron 17 L Transferrin 144 L Transferrin % Sat 8 L Ferritin 478.0 H Lactate Dehydrogenase Total Creatine Kinase Vitamin B12 Folate Random Vancomycin 07/22/20 07/22/20 07/22/20 17:29 17:29 18:30 WBC RBC Hgb Hct MCV MCH MCHC RDW Std Deviation RDW Coeff of Peng Plt Count MPV Peripher Smr Path Cons Fibrinogen Sodium Potassium Chloride Carbon Dioxide Anion Gap BUN Creatinine Est Cr Clr Drug Dosing Est GFR ( Amer) Est GFR (Non-Af Amer) BUN/Creatinine Ratio Glucose POC Glucose 146 H Calcium Magnesium Iron Transferrin Transferrin % Sat Ferritin Lactate Dehydrogenase 566 H Total Creatine Kinase Vitamin B12 1087 H Folate > 20.00 Random Vancomycin 07/23/20 07/23/20 07/23/20 07:26 07:26 07:26 WBC 8.06 RBC 2.18 L Hgb 8.1 L Hct 23.7 L MCV 108.7 H MCH 37.2 H MCHC 34.2 RDW Std Deviation 55.5 H RDW Coeff of Peng 14.2 Plt Count 146 MPV 10.4 Peripher Smr Path Cons Fibrinogen Sodium 138 Potassium 3.7 Chloride 105 Carbon Dioxide 22 Anion Gap 11.0 BUN 103 H Creatinine 5.03 H* D Est Cr Clr Drug Dosing 20.3 Est GFR ( Amer) 13.0 Est GFR (Non-Af Amer) 11.2 BUN/Creatinine Ratio 20.5 H Glucose 120 H POC Glucose Calcium 8.2 L Magnesium 2.8 H Iron Transferrin Transferrin % Sat Ferritin Lactate Dehydrogenase Total Creatine Kinase Vitamin B12 Folate Random Vancomycin 21.0 07/23/20 07:26 WBC RBC Hgb Hct MCV MCH MCHC RDW Std Deviation RDW Coeff of Peng Plt Count MPV Peripher Smr Path Cons Fibrinogen Sodium Potassium Chloride Carbon Dioxide Anion Gap BUN Creatinine Est Cr Clr Drug Dosing Est GFR ( Amer) Est GFR (Non-Af Amer) BUN/Creatinine Ratio Glucose POC Glucose Calcium Magnesium Iron Transferrin Transferrin % Sat Ferritin Lactate Dehydrogenase Total Creatine Kinase 26617 H Vitamin B12 Folate Random Vancomycin PG Care Time/CCT Total # of Minutes Spent Total Time Spent with Patient: Total time spent is greater than 50% in coordination of care (as documented) at patient's floor/unit and/or counseling patient: Coding Level of Care Code 23449 Subseq Hosp Care Lvl 3 Diagnoses Acute renal failure N17.9 Anemia D64.9 Leukocytosis D72.829 HTN (hypertension) I10
--- NOTE | 2020-07-23 16:10 | Hospitalist Progress Note ---
Date of Service July 23, 2020 Assessment & Plan (1) MRSA bacteremia: In blood cultures on admission. CT chest incidentally showed possible thoracic spine involvement. MRI thoracic spine on 07/22 was limited, but showed "non-specific prevertebral soft tissue edema/swelling adjacent to the large anterior osteophytes at the T8-T9 and T10-11 levels." - Started on daptomycin on 07/22 for positive blood cultures. - Stopped dapto and started vancomycin given CT chest on 07/22 indicates possib le pneumonia. - Will get MRSA swab & procalcitonin to see if we can possibly rule out PNA component of infection. Cannot use linezolid given recent SNRI use, so our abx options are limited. Dapto also not optimal given both possible lung involvement and elevated CK. Will see what ID thinks. (2) Acute renal failure: Baseline Cr ~1.00 - 1.35, eGFR 60 - 75. - Cr on admission was 4.1 with hyaline and granular casts. This points towards dehydration leading to possible ATN. Likely compounded by chlorthalidone, enalapril, and furosemide. - Hold above medications - IV fluids - Nephrology consulted - Agree with current plan. Cr worsening to 5.0 today. BUN 100. Does not look hypervolemic, but concern that he may need temporary dialysis. (3) Anemia: Long-standing macrocytic anemia with recent B12/folate in 02/2020 both normal. Baseline hgb ~12-14. - ED provider was concerned about upper GI bleed given hgb was 9.7 on admission with heme-positive. -> Started on PPI gtt in the ED. - For me, he denies melena, but does reports some small amounts of bright red blood per rectum over the last few days, that he associates with painful passage of BMs. Concern more for hemorrhoidal bleed or anal fissure which could account of heme(+) stool in absence of clear melenic or bloody stools. - Hgb down slightly today to 8.1. Blood smear shows no schistocytes and is consistent with iron deficiency. Will defer IV iron given his bacteremia. (4) HTN (hypertension): Presently borderline hypotensive; likely from hypovolemia. - Will defer BP meds for now - Monitor (5) Chest pain: Present since yesterday's fall. Pain occurs with chest wall palpation. Troponin and EKG normal. Negative stress test in 2018. Likely MSK in nature. - Tylenol PRN - Can add topical treatment as well if needed -> No further pain for me. (6) Seizure disorder: Follows with Vee Mcnulty. - Carbamazepine level was 12.0 on admission (upper range of normal) - Hold carbamazepine for now. (7) Paranoid schizophrenia, chronic condition: No presents issues. - Hold venlafaxine given renal injury - Continue topiramate (8) Depression: - As above with schizophrenia (9) HLD (hyperlipidemia): - Hold statin for now (10) DVT prophylaxis: SCDs - Hold heparin until hemoglobin & GI symptoms monitored for 24-48 hours Admission and Anticipated Discharge Date Admission Date: July 21, 2020 Subjective Doing ok today. No major issues. No further fevers. Reports no fevers/chills, chest pain, shortness of breath, abdominal pain, nausea, or vomiting. Physical Exam Constitutional: WD/WN, vitals as above Eyes: EOM intact bilaterally; no conjunctival abnormality ENMT: external ear and nose normal, oropharynx normal Neck: trachea midline, no thyromegaly normal visual inspection Respiratory: normal respiratory effort, lungs clear to auscultation no respiratory distress Cardiovascular: RRR, no murmur, no edema Gastrointestinal (Abdomen): Inspection/Auscultation: abdomen normal to inspection; abdomen not distended Musculoskeletal: no cyanosis or clubbing, extremities motor strength 5/5 Skin: no rashes, warm and dry (Thorough look from head to toes. No rashes or ulcers noted. Few scabs.) no ulcers and no erythema Neurologic: moves all extremities and awake Psychiatric: Orientation: alert, oriented to person and cooperative Results & Data Results & Data ([facility]) Vital Signs (Past 12 Hours) Vital Signs Temp Pulse Pulse Pulse Resp BP BP 07/23/20 15:53 36.7 C 102 H 24 114/71 07/23/20 11:33 36.6 C 103 H 18 120/63 07/23/20 08:37 20 07/23/20 07:34 36.7 C 100 H 26 H 124/77 Pulse Ox 07/23/20 15:53 94 07/23/20 11:33 92 07/23/20 08:37 07/23/20 07:34 95 PG Care Time/CCT Total # of Minutes Spent Total Time Spent with Patient: Total time spent is greater than 50% in coordination of care (as documented) at patient's floor/unit and/or counseling patient: Coding Level of Care Code 27186 Subseq Hosp Care Lvl 3 Diagnoses MRSA bacteremia R78.81; B95.62 Acute renal failure N17.9 Anemia D64.9 HTN (hypertension) I10 Chest pain R07.9 Seizure disorder G40.909 Paranoid schizophrenia, chronic condition F20.0 Depression F32.9 HLD (hyperlipidemia) E78.5 DVT prophylaxis Z29.9
--- NOTE | 2020-07-23 18:15 | Pharmacy Report ---
Pharmacy Abx Dose Short Note - Date of Service July 23, 2020 - Assessment & Plan Assessment 65 year old M receiving vancomycin for treatment of bacteremia, discitis, and possibly pneumonia Day # 2 of antimicrobial therapy. Plan Vancomycin * Random level of 17.5 mcg/mL is therapeutic --> patient specific pharmacokinetics suggest half-life of 33 hours with elimination constant of 0.02 hr-1 * vancomycin 1250 mg (10 mg/kg) IV x 1 * Goal trough level for bacteremia in setting of MRSA : 15-20 mcg/mL * Random level ordered for: 07/23/19 around 1600 Pharmacy will continue to follow and will adjust dose/frequency as necessary. Thank you.
[2020-07-23] MEDS ORDERED: VANCOMYCIN HCL 1,250 MG in SODIUM CHLORIDE 0.9% 250 ML IV ONE (18:30)
[2020-07-24] MEDS: NORMOSOL-R 1,000 ML IV SCH ×2 (03:50→14:45)
[2020-07-24] MEDS: LEVOTHYROXINE SODIUM 50 MCG TABLET PO SCH (05:56)
[2020-07-24] MEDS ORDERED: DAPTOmycin 600 MG in SYRINGE 0 ML IV SCH (06:00)
[2020-07-24 07:24] LABS: Hematocrit (blood only) 22.8 % (42-52); Hemoglobin 7.8 g/dL (14.0-18.0); Mean Corpuscular Hgb Conc 34.2 g/dL (32-36); Mean Corpuscular Volume 108.1 fL (80-100); Mean Platelet Volume 10.1 fL (7.4-10.4); Platelet Count 140 K/uL (130-400); RDW Coefficient of Variation 14.1 % (11.5-14.5); RDW Standard Deviation 55.8 fL (36.4-46.3); Red Blood Count 2.11 M/uL (4.7-6.1); White Blood Count 7.63 K/uL (4.8-10.8)
[2020-07-24 07:56] LABS: BUN Creatinine Ratio 22.7 (10-20); Calcium 8.4 mg/dl (8.5-10.1); Creatinine Clr Calc Pharmacy 25.7 ml/min; Est GFR (African American) 17.3; Est GFR (Non-African American) 14.9; Magnesium 2.8 mg/dl (1.8-2.4); Potassium 3.5 mmol/L (3.5-5.1)
[2020-07-24 07:59] LABS: Albumin Globulin Ratio 0.5 (0.9-2); Bilirubin,Total 0.6 mg/dl (0.2-1); Globulin 4.4 gm/dl (2.5-4.0); Phosphorus 4.1 mg/dl (2.5-4.9); Total Protein 6.4 gm/dl (6.4-8.2)
--- NOTE | 2020-07-24 08:34 | XRay Report ---
XR chest 1V portable CLINICAL HISTORY: Wheezing; shortness of breath COMPARISON STUDY: 07/21/2020 FINDINGS: The heart is mildly enlarged. There is a retrocardiac opacity consistent with a hiatal neena ia. Small pleural effusions are suspected. There is no lobar consolidation. There is no overt failure . There is mild basilar atelectasis.[ IMPRESSION: 1. Hiatal hernia 2. Suspected small pleural effusions with basilar atelectasis. ACT 112: Negative or not required by law. Electronically signed by: Jeff Quinones M.D. 07/24/2020 8:33 AM
[2020-07-24] MEDS: METOPROLOL TARTRATE 25 MG TAB PO SCH ×2 (08:37→21:48)
[2020-07-24] MEDS: FOLIC ACID 1 MG TAB PO SCH (08:37)
[2020-07-24] MEDS: TOPIRAMATE 50 MG TAB PO SCH (08:38)
--- NOTE | 2020-07-24 09:46 | Nephrology Progress Note ---
Date of Service July 24, 2020 Assessment & Plan (1) Acute renal failure: * Baseline Cr 1.35 mg/dL in February * Clinical presentation consistent with ATN and prerenal physiology * Developed evidence of urinary retention yesterday requiring Gardner placement * Chlorthalidone, enalapril, and furosemide have been held * Abd/plv CT reviewed: no obstruction * UA/micro: +hyaline and granular casts. No RBC/WBC * Non-oliguric * Electrolytes acceptable * Volume status relatively euvolemic, IV normosol as needed to maintain even to slightly positive fluid balance * Plan of care reviewed with hospitalist this AM * Medications are appropriately dosed for kidney function (2) Anemia: * No signs of active bleeding. * Iron deficiency noted. IV iron deferred due to bacteremia. (3) Leukocytosis: * Dapto switched to vancomycin this AM due to concern for possible PNA. * Blood cultures +MRSA on 07/21 and 07/22. * Repeat cultures pending. (4) HTN (hypertension): * Remains relatively hypotensive. Antihypertensives held. Admission and Anticipated Discharge Date Admission Date: July 21, 2020 Subjective No acute events overnight. No complaints this AM. Denies fevers or chills. No dyspnea. Gardner draining dark yellow urine. Review of Systems Review of Systems: All systems reviewed & are unremarkable except as noted in HPI & below Physical Exam Constitutional: well developed; no acute distress Eyes: no scleral abnormality and no corneal abnormality ENMT: Mouth: no oral mucosal abnormality and oral mucous membranes not dry Neck: normal visual inspection and trachea midline Respiratory: normal respiratory effort Auscultation: + rales Cardiovascular: Rate/Rhythm: regular rate Heart Sounds: normal S1 and normal S2 Extremities: no edema Musculoskeletal: Extremities: no cyanosis and no clubbing Skin: normal turgor; no lesions Neurologic: Motor/Sensory: no tremor and no asterixis Psychiatric: Orientation: alert and oriented x 3 Results & Data ([facility]) Vital Signs (Past 12 Hours) Vital Signs Temp Pulse Resp BP Pulse Ox 07/24/20 08:32 37.1 C 98 H 18 117/63 92 07/23/20 23:21 37.1 C 94 H 18 123/70 93 Laboratory Results Laboratory Results - last 24 hr 07/22/20 07/23/20 07/23/20 17:29 07:26 16:14 WBC RBC Hgb Hct MCV MCH MCHC RDW Std Deviation RDW Coeff of Peng Plt Count MPV Peripher Smr Path Cons Sodium Potassium Chloride Carbon Dioxide Anion Gap BUN Creatinine Est Cr Clr Drug Dosing Est GFR ( Amer) Est GFR (Non-Af Amer) BUN/Creatinine Ratio Glucose Calcium Phosphorus Magnesium Total Bilirubin AST ALT Alkaline Phosphatase Total Creatine Kinase 19100 H NT-Pro-B Natriuret Pep Total Protein Albumin Globulin Albumin/Globulin Ratio Procalcitonin Nasal Screen MRSA (PCR) Random Vancomycin 17.5 07/23/20 07/23/20 07/24/20 16:54 18:55 07:12 WBC RBC Hgb Hct MCV MCH MCHC RDW Std Deviation RDW Coeff of Peng Plt Count MPV Peripher Smr Path Cons Sodium 137 Potassium 3.5 Chloride 104 Carbon Dioxide 22 Anion Gap 11.0 BUN 91 H Creatinine 3.98 H D Est Cr Clr Drug Dosing 25.7 Est GFR ( Amer) 17.3 Est GFR (Non-Af Amer) 14.9 BUN/Creatinine Ratio 22.7 H Glucose 110 H Calcium 8.4 L Phosphorus 4.1 Magnesium 2.8 H Total Bilirubin 0.6 AST 278 H ALT 204 H Alkaline Phosphatase 54 Total Creatine Kinase NT-Pro-B Natriuret Pep Total Protein 6.4 Albumin 2.0 L Globulin 4.4 H Albumin/Globulin Ratio 0.5 L Procalcitonin 13.31 H Nasal Screen MRSA (PCR) Positive A Random Vancomycin 07/24/20 07/24/20 07/24/20 07:12 07:12 07:12 WBC 7.63 RBC 2.11 L Hgb 7.8 L Hct 22.8 L MCV 108.1 H MCH 37.0 H MCHC 34.2 RDW Std Deviation 55.8 H RDW Coeff of Peng 14.1 Plt Count 140 MPV 10.1 Peripher Smr Path Cons Sodium Potassium Chloride Carbon Dioxide Anion Gap BUN Creatinine Est Cr Clr Drug Dosing Est GFR ( Amer) Est GFR (Non-Af Amer) BUN/Creatinine Ratio Glucose Calcium Phosphorus Magnesium Total Bilirubin AST ALT Alkaline Phosphatase Total Creatine Kinase NT-Pro-B Natriuret Pep 1215 H Total Protein Albumin Globulin Albumin/Globulin Ratio Procalcitonin Nasal Screen MRSA (PCR) Random Vancomycin 21.9 PG Care Time/CCT Total # of Minutes Spent Total Time Spent with Patient: Total time spent is greater than 50% in coordination of care (as documented) at patient's floor/unit and/or counseling patient: Coding Level of Care Code 81126 Subseq Hosp Care Lvl 3 Diagnoses Acute renal failure N17.9 Anemia D64.9 Leukocytosis D72.829 HTN (hypertension) I10
--- NOTE | 2020-07-24 12:45 | Electrocardiogram Report ---
Test Reason : Blood Pressure : / mmHG Vent. Rate : 099 BPM Atrial Rate : 099 BPM P-R Int : 220 ms QRS Dur : 116 ms QT Int : 368 ms P-R-T Axes : 033 007 -01 degrees QTc Int : 472 ms Sinus rhythm with 1st degree A-V block Possible Left atrial enlargement Borderline ECG When compared with ECG of 21-JUL-2020 10:14, No significant change was found Confirmed by Rashard Lamar ([id number]) on 07/24/2020 12:44:52 PM Referred By: REFERRED SELF Confirmed By:Rashard Lamar
--- NOTE | 2020-07-24 16:20 | Hospitalist Progress Note ---
Date of Service July 24, 2020 Assessment & Plan (1) MRSA bacteremia: In blood cultures on admission. CT chest incidentally showed possible thoracic spine involvement. MRI thoracic spine on 07/22 was limited, but showed "non-specific prevertebral soft tissue edema/swelling adjacent to the large anterior osteophytes at the T8-T9 and T10-11 levels." - Started on daptomycin on 07/22 for positive blood cultures. - Stopped dapto and started vancomycin given CT chest on 07/22 indicated possib le pneumonia. - MRSA swab positive & procalcitonin was 13.31. Neither of these conclusively rule in/out pneumonia; however, enough evidence for me that I would not feel comfortable treating with daptomycin. - ID consult tomorrow (2) Acute renal failure: Baseline Cr ~1.00 - 1.35, eGFR 60 - 75. - Cr on admission was 4.1 with hyaline and granular casts. This points towards dehydration leading to possible ATN. Likely compounded by chlorthalidone, enalapril, and furosemide. - Hold above medications - Nephrology consulted - Agree with current plan. - IV fluids ran until 07/24. Stopped for increased wheezing and shortness of breath. Cr better today. Also may have had some element of post-renal as he had >800 mL in his bladder and needed Gardner placed on 07/23. (3) Anemia: Long-standing macrocytic anemia with recent B12/folate in 02/2020 both normal. Baseline hgb ~12-14. - ED provider was concerned about upper GI bleed given hgb was 9.7 on admission with heme-positive. -> Started on PPI gtt in the ED. - For me, he denies melena, but does reports some small amounts of bright red blood per rectum over the last few days, that he associates with painful passage of BMs. Concern more for hemorrhoidal bleed or anal fissure which could account of heme(+) stool in absence of clear melenic or bloody stools. - Hgb down slightly today to 7.8. Blood smear shows no schistocytes and is consistent with iron deficiency. Will defer IV iron given his bacteremia. (4) HTN (hypertension): Presently borderline hypotensive; likely from hypovolemia/sepsis. - Will defer BP meds for now - Monitor (5) Chest pain: Present since yesterday's fall. Pain occurs with chest wall palpation. Troponin and EKG normal. Negative stress test in 2018. Likely MSK in nature. - Tylenol PRN - Can add topical treatment as well if needed -> Had some extra pain on 07/24. EKG stable and troponin negative. Still feel it is MSK. (6) Seizure disorder: Follows with Vee Mcnulty. - Carbamazepine level was 12.0 on admission (upper range of normal) - Hold carbamazepine for now. (7) Paranoid schizophrenia, chronic condition: No presents issues. - Hold venlafaxine given renal injury - Continue topiramate (8) Depression: - As above with schizophrenia (9) HLD (hyperlipidemia): - Hold statin for now (10) DVT prophylaxis: SCDs - Hold heparin until hemoglobin stable for 24-48 hours Admission and Anticipated Discharge Date Admission Date: July 21, 2020 Subjective Stable today. No major changes. No back pain. No new rashes. Reports no fevers/chills, chest pain, shortness of breath, abdominal pain, nausea, or vomiting. Physical Exam Constitutional: WD/WN, vitals as above Eyes: EOM intact bilaterally; no conjunctival abnormality ENMT: external ear and nose normal, oropharynx normal Neck: trachea midline, no thyromegaly normal visual inspection Respiratory: normal respiratory effort, lungs clear to auscultation no respiratory distress Cardiovascular: RRR, no murmur, no edema Gastrointestinal (Abdomen): Inspection/Auscultation: abdomen normal to inspection; abdomen not distended Musculoskeletal: no cyanosis or clubbing, extremities motor strength 5/5 Skin: no rashes, warm and dry (Thorough look from head to toes. No rashes or ulcers noted. Few scabs.) no ulcers and no erythema Neurologic: moves all extremities and awake Psychiatric: Orientation: alert, oriented to person and cooperative Results & Data Results & Data ([facility]) Vital Signs (Past 12 Hours) Vital Signs Temp Pulse Pulse Resp BP Pulse Ox 07/24/20 15:38 36.3 C L 89 24 117/81 90 07/24/20 08:32 37.1 C 98 H 18 117/63 92 PG Care Time/CCT Total # of Minutes Spent Total Time Spent with Patient: Total time spent is greater than 50% in coordination of care (as documented) at patient's floor/unit and/or counseling patient: Coding Level of Care Code 94731 Subseq Hosp Care Lvl 3 Diagnoses MRSA bacteremia R78.81; B95.62 Acute renal failure N17.9 Anemia D64.9 HTN (hypertension) I10 Chest pain R07.9 Seizure disorder G40.909 Paranoid schizophrenia, chronic condition F20.0 Depression F32.9 HLD (hyperlipidemia) E78.5 DVT prophylaxis Z29.9
[2020-07-24] MEDS ORDERED: VANCOMYCIN HCL 1,250 MG in SODIUM CHLORIDE 0.9% 250 ML IV ONE (21:00)
--- NOTE | 2020-07-24 21:26 | Pharmacy Report ---
Pharmacy Abx Dose Short Note - Date of Service July 24, 2020 - Assessment & Plan Assessment 65 year old M receiving vancomycin for treatment of MRSA bacteremia, discitis, and possibly pneumonia * Day # 3 of antimicrobial therapy * Patient remains in OCTAVIO with Scr trending down (5.03 -> 3.98 mg/dL). Baseline Scr 1-1.3 mg/dL Plan Vancomycin * 07/24: Random level of 21.9 mcg/mL @ 0717 and 18.1 mcg/mL @ 1800. This indicates a vancomycin ke and T1/2 = 0.021/ ~ 33 hours * Vancomycin 1250 mg IV ordered for 2100. Random level ordered for 1/6 AM * Goal trough level: 15-20 mcg/mL Pharmacy will continue to follow and will adjust dose/frequency as necessary. Thank you.
[2020-07-25] MEDS ORDERED: COUGH DROP (SUGAR FREE) LOZ 24 LOZ/1 BOX BUCCAL ONE (01:30)
[2020-07-25] MEDS ORDERED: POLYETHYLENE (MIRALAX) 17 GM PACK PO ONE (02:30)
[2020-07-25] MEDS ORDERED: bisacodyL 5 MG TABEC PO ONE ×2 (02:32→05:26)
--- NOTE | 2020-07-25 02:37 | Communication Note ---
Date of Service: July 25, 2020 Nursing contacted me this evening reporting that the patient concerning patient's respiratory status. Chest x-ray was obtained and reviewed personally by myself, I did not see any significant interval changes and if anything it looks slightly better compared to the chest x-ray obtained on 07/24. Nursing also informed the patient has not had a bowel movement in 5 days, there is a large stool burden visible on chest x-ray. -MiraLAX 34 g and Dulcolax p.o. now -As needed milk of molasses enema -MiraLAX 17 g twice daily -Monitor for improvement Resident Activity Tracking Resident Involvement: Resident Care Provided Care Provided: Adult Hospital Medicine
[2020-07-25] MEDS ORDERED: ALBUTEROL 0.5% NEB SOLN 2.5 MG/0.5 ML VIAL NEB PRN (02:50)
[2020-07-25] MEDS: ALBUT/IPRATROP 3MG/0.5MG NEB 3 ML VIAL NEB PRN ×2 (04:34→14:27)
[2020-07-25] MEDS ORDERED: POLYETHYLENE (MIRALAX) 17 GM PACK ONE ×2 (05:26→05:28)
[2020-07-25] MEDS: LEVOTHYROXINE SODIUM 50 MCG TABLET PO SCH (05:27)
[2020-07-25] MEDS: FOLIC ACID 1 MG TAB PO SCH (07:26)
[2020-07-25] MEDS: METOPROLOL TARTRATE 25 MG TAB PO SCH ×2 (07:27→20:25)
[2020-07-25] MEDS: POLYETHYLENE (MIRALAX) 17 GM PACK PO SCH ×3 (07:28→20:22)
[2020-07-25] MEDS: TOPIRAMATE 50 MG TAB PO SCH (07:28)
[2020-07-25 07:41] LABS: Hematocrit (blood only) 23.2 % (42-52); Mean Corpuscular Hgb Conc 34.5 g/dL (32-36); Mean Corpuscular Volume 107.4 fL (80-100); Mean Platelet Volume 10.8 fL (7.4-10.4); Platelet Count 175 K/uL (130-400); RDW Coefficient of Variation 14.2 % (11.5-14.5); Red Blood Count 2.16 M/uL (4.7-6.1); White Blood Count 7.77 K/uL (4.8-10.8)
--- NOTE | 2020-07-25 07:41 | XRay Report ---
XR chest 1V portable CLINICAL HISTORY: sob, wheezes COMPARISON STUDY: 07/24/2020, CT scan dated 07/22/2020 FINDINGS: The heart remains enlarged. There is a retrocardiac opacity consistent with a hiatal hernia . There is slight haziness in the right lower lung zone. This likely is secondary to a subpulmonic pl eural effusion with associated right basilar atelectasis/consolidation.[ IMPRESSION: 1. Slight haziness the right lung base, likely secondary to a small subpulmonic pleural effusion with associated right basilar atelectasis/consolidation ACT 112: Negative or not required by law. Electronically signed by: Jeff Quinones M.D. 07/25/2020 7:40 AM
[2020-07-25 08:14] LABS: BUN Creatinine Ratio 27.8 (10-20); Calcium 8.8 mg/dl (8.5-10.1); Creatinine Clr Calc Pharmacy 33.1 ml/min; Est GFR (African American) 23.5; Est GFR (Non-African American) 20.2; Magnesium 2.9 mg/dl (1.8-2.4); Phosphorus 4.2 mg/dl (2.5-4.9); Potassium 3.2 mmol/L (3.5-5.1)
--- NOTE | 2020-07-25 09:26 | Pharmacy Report ---
Pharmacy Abx Dose Short Note - Date of Service July 25, 2020 - Assessment & Plan Assessment 65 year old M receiving vancomycin for treatment of pneumonia and MRSA bacteremia Day # 4 of antimicrobial therapy. Plan Vancomycin * Random level of 21 mcg/mL is slightly supratherapeutic * Recheck random level around 1600 as kidney function continues to improve * Goal trough level for bacteremia : 15 to 20 mcg/mL Pharmacy will continue to follow and will adjust dose/frequency as necessary. Thank you.
--- NOTE | 2020-07-25 10:31 | Nephrology Progress Note ---
Date of Service July 25, 2020 Assessment & Plan (1) Acute renal failure: * Baseline Cr 1.35 mg/dL in February * Clinical presentation consistent with ATN and prerenal physiology * Developed evidence of urinary retention requiring Gardner placement * Chlorthalidone, enalapril, and furosemide have been held * Abd/plv CT reviewed: no obstruction * UA/micro: +hyaline and granular casts. No RBC/WBC * Non-oliguric * Electrolytes acceptable * Volume status euvolemic * No additional IVF, now in slightly negative but acceptable fluid balance as kidney function improves * Plan of care reviewed with hospitalist this AM * Medications are appropriately dosed for kidney function (2) Anemia: * No signs of active bleeding. * Iron deficiency noted. IV iron deferred due to bacteremia. (3) Leukocytosis: * Vanco level 21 acceptable, 1.25 g yesterday. Dosing per pharmacy. * Blood cultures +MRSA on 07/21 and 07/22. * Concern for possible pneumonia. * Repeat cultures NGTD. * ID consult pending. * PICC placement for anticipated continued IV antibiotic would be considered acceptable (assuming blood cultures cleared) per nephrology. (4) HTN (hypertension): * BP acceptable. Volume status controlled. Admission and Anticipated Discharge Date Admission Date: July 21, 2020 Subjective No acute events overnight. Out of bed with PT yesterday. Noted some difficulty ambulating to the bathroom yesterday. Weakness persists. Plan for rehab post discharge. Overall, Renard states that he feels well. Gardner remains intact. Breathing comfortably. Review of Systems Constitutional: no weight loss, no weight gain and no problem reported Eyes: no problem reported Ear, Nose, Mouth, Throat: no problem reported Respiratory: no problem reported Cardiovascular: no problem reported Gastrointestinal: no problem reported Musculoskeletal: no problem reported Integumentary: no problem reported Neurologic: no problem reported Psychiatric: no problem reported Endocrine: no problem reported Hematologic / Lymphatic: no problem reported Physical Exam Constitutional: well developed; no acute distress Eyes: no scleral abnormality and no corneal abnormality ENMT: Mouth: no oral mucosal abnormality and oral mucous membranes not dry Neck: normal visual inspection and trachea midline Respiratory: normal respiratory effort Auscultation: + rales Cardiovascular: Rate/Rhythm: regular rate Heart Sounds: normal S1 and normal S2 Extremities: no edema Musculoskeletal: Extremities: no cyanosis and no clubbing Skin: normal turgor; no lesions Neurologic: Motor/Sensory: no tremor and no asterixis Psychiatric: Orientation: alert and oriented x 3 Results & Data ([facility]) Vital Signs (Past 12 Hours) Vital Signs Temp Pulse Resp BP Pulse Ox 07/25/20 07:29 36.8 C 95 H 18 132/75 96 07/25/20 04:34 87 20 93 07/24/20 23:11 37 C 96 H 22 123/73 93 Laboratory Results Laboratory Results - last 24 hr 07/24/20 07/24/20 07/25/20 07:12 16:07 07:04 WBC RBC Hgb Hct MCV MCH MCHC RDW Std Deviation RDW Coeff of Peng Plt Count MPV Sodium 137 Potassium 3.2 L Chloride 103 Carbon Dioxide 22 Anion Gap 11.0 BUN 86 H Creatinine 3.09 H D Est Cr Clr Drug Dosing 33.1 Est GFR ( Amer) 23.5 Est GFR (Non-Af Amer) 20.2 BUN/Creatinine Ratio 27.8 H Glucose 113 H Calcium 8.8 Phosphorus 4.2 Magnesium 2.9 H Troponin I 0.021 Random Vancomycin 18.1 07/25/20 07/25/20 07:04 07:04 WBC 7.77 RBC 2.16 L Hgb 8.0 L Hct 23.2 L MCV 107.4 H MCH 37.0 H MCHC 34.5 RDW Std Deviation 56.0 H RDW Coeff of Peng 14.2 Plt Count 175 MPV 10.8 H Sodium Potassium Chloride Carbon Dioxide Anion Gap BUN Creatinine Est Cr Clr Drug Dosing Est GFR ( Amer) Est GFR (Non-Af Amer) BUN/Creatinine Ratio Glucose Calcium Phosphorus Magnesium Troponin I Random Vancomycin 21.0 PG Care Time/CCT Total # of Minutes Spent Total Time Spent with Patient: Total time spent is greater than 50% in coordination of care (as documented) at patient's floor/unit and/or counseling patient: Coding Level of Care Code 28453 Subseq Hosp Care Lvl 3 Diagnoses Acute renal failure N17.9 Anemia D64.9 Leukocytosis D72.829 HTN (hypertension) I10
--- NOTE | 2020-07-25 14:16 | Hospitalist Progress Note ---
Date of Service July 25, 2020 Assessment & Plan (1) Shortness of breath: Increasing shortness of breath the last few days. Has had large net positive fluid balance. - Will get procalcitonin, abg, BNP - Consider repeat CT chest if no improvement with DuoNebs (2) MRSA bacteremia: In blood cultures on admission. CT chest incidentally showed possible thoracic spine involvement. MRI thoracic spine on 07/22 was limited, but showed "non-specific prevertebral soft tissue edema/swelling adjacent to the large anterior osteophytes at the T8-T9 and T10-11 levels." - Started on daptomycin on 07/22 for positive blood cultures. - Stopped dapto and started vancomycin given CT chest on 07/22 indicated possible pneumonia. - MRSA swab positive & procalcitonin was 13.31. Neither of these conclusively rule in/out pneumonia; however, enough evidence for me that I would not feel comfortable treating with daptomycin. - ID consult today hopefully - Left elbow with mild erythema, but no fluid and no pain. Will monitor. (3) Acute renal failure: Baseline Cr ~1.00 - 1.35, eGFR 60 - 75. - Cr on admission was 4.1 with hyaline and granular casts. This points towards dehydration leading to possible ATN. Likely compounded by chlorthalidone, enalapril, and furosemide. - Hold above medications - Nephrology consulted - Agree with current plan. - IV fluids ran until 07/24. Stopped for increased wheezing and shortness of breath. Cr better today. Also may have had some element of post-renal as he had >800 mL in his bladder and needed Gardner placed on 07/23. (4) Anemia: Long-standing macrocytic anemia with recent B12/folate in 02/2020 both normal. Baseline hgb ~12-14. - ED provider was concerned about upper GI bleed given hgb was 9.7 on admission with heme-positive. -> Started on PPI gtt in the ED. - For me, he denies melena, but does reports some small amounts of bright red blood per rectum over the last few days, that he associates with painful passage of BMs. Concern more for hemorrhoidal bleed or anal fissure which could account of heme(+) stool in absence of clear melenic or bloody stools. - Hgb stable today at 8.0. Blood smear shows no schistocytes and is consistent with iron deficiency. Will defer IV iron given his bacteremia. (5) HTN (hypertension): Presently borderline hypotensive; likely from hypovolemia/sepsis. - Will defer BP meds for now - Monitor (6) Chest pain: Present since yesterday's fall. Pain occurs with chest wall palpation. Troponin and EKG normal. Negative stress test in 2018. Likely MSK in nature. - Tylenol PRN - Can add topical treatment as well if needed -> Had some extra pain on 07/24. EKG stable and troponin negative. Still feel it is MSK. (7) Seizure disorder: Follows with Vee Mcnulty. - Carbamazepine level was 12.0 on admission (upper range of normal) - Hold carbamazepine for now. (8) Paranoid schizophrenia, chronic condition: No presents issues. - Hold venlafaxine given renal injury - Continue topiramate (9) Depression: - As above with schizophrenia (10) HLD (hyperlipidemia): - Hold statin for now (11) DVT prophylaxis: Hgb has been stable x 3 days. Will start heparin given his critical illness. Would not want DVT/PE to complicate an already very sick patient. Admission and Anticipated Discharge Date Admission Date: July 21, 2020 Subjective Still with some shortness of breath. No further fevers. Reports no fevers/chills, chest pain, abdominal pain, nausea, or vomiting. Physical Exam Constitutional: WD/WN, vitals as above Eyes: EOM intact bilaterally; no conjunctival abnormality ENMT: external ear and nose normal, oropharynx normal Neck: trachea midline, no thyromegaly normal visual inspection Respiratory: + respiratory distress and + labored breathing Auscultation: + crackles Cardiovascular: RRR, no murmur, no edema Gastrointestinal (Abdomen): Inspection/Auscultation: abdomen normal to inspection; abdomen not distended Musculoskeletal: no cyanosis or clubbing, extremities motor strength 5/5 Skin: no rashes, warm and dry (Thorough look from head to toes. No rashes or ulcers noted. Few scabs.) no ulcers and no erythema Neurologic: moves all extremities and awake Psychiatric: Orientation: alert, oriented to person and cooperative Results & Data Results & Data ([facility]) Vital Signs (Past 12 Hours) Vital Signs Temp Pulse Resp BP Pulse Ox 07/25/20 07:29 36.8 C 95 H 18 132/75 96 07/25/20 04:34 87 20 93 PG Care Time/CCT Total # of Minutes Spent Total Time Spent with Patient: Total time spent is greater than 50% in coordination of care (as documented) at patient's floor/unit and/or counseling patient: Coding Level of Care Code 21069 Subseq Hosp Care Lvl 3 Diagnoses Shortness of breath R06.02 MRSA bacteremia R78.81; B95.62 Acute renal failure N17.9 Anemia D64.9 HTN (hypertension) I10 Chest pain R07.9 Seizure disorder G40.909 Paranoid schizophrenia, chronic condition F20.0 Depression F32.9 HLD (hyperlipidemia) E78.5 DVT prophylaxis Z29.9
--- NOTE | 2020-07-25 15:03 | Cardiology Consultation ---
Date of Consultation July 25, 2020 Assessment & Plan (1) MRSA bacteremia: -5 sets of blood cultures positive for MRSA. -current echocardiogram was an excellent study without evidence of valvular vegetation. -would only perform ANNI if this alters his length of antibiotic therapy. (2) HTN (hypertension): -adequate control on current medical regimen. -does have mild LVH on current echocardiogram. (3) HLD (hyperlipidemia): -continue simvastatin. History of Present Illness Attending Physician: Jonn Bowman MD History of Present Illness Mr. He is a 65-year-old male admitted on the 21 of July with acute renal failure, fatigue, anemia, and heme-positive stool. The patient now has evidence of an MRSA bacteremia and this consultation was ordered to decide if a ANNI was necessary. The patient has never known of a cardiac event. He has never undergone a cardiac catheterization. Workup in the hospital thus far has noted a right-sided pneumonia and mariajose vertebral soft tissue edema adjacent to large osteophytes at T8-T9 and T10-11. On evaluation today, the patient's complaints are that of fatigue and continued lumbar back discomfort. A have discussed the possibility of a ANNI should that procedure alter his care. Past medical and surgical history 1. Hypertension 2. Mild LVH 3. Hypercholesterolemia 4. Macrocytic anemia 5. Seizure disorder 6. Paranoid schizophrenic 7. Depression 8. DJD 9. Vitamin-D deficiency 10. Hypothyroidism 11. Appendectomy 12. Cholecystectomy 13. Umbilical hernia repair Social history , lives this is . No tobacco or alcohol. Family history No early coronary artery disease Review of systems A 10 review systems was undertaken and negative except for that described above. Allergies Allergy/AdvReac Type Severity Reaction Status Date / Time loxapine AdvReac Mild restless Verified 07/22/20 16:46 and nervous morphine AdvReac Mild nausea/vomi Verified 07/22/20 16:46 ting Home Medications Medication Instructions Recorded Confirmed Type cholecalciferol (vitamin D3) 2,000 unit PO QAM 01/13/19 07/21/20 History [Vitamin D3] levothyroxine 50 mcg PO QAM 01/13/19 07/21/20 History pemttfewscdd-lmctplto-[id number] 1 tab PO QAM 01/13/19 07/21/20 History [Multivitamin 50 Plus] simvastatin 20 mg PO HS 01/13/19 07/21/20 History venlafaxine 150 mg PO QAM 01/13/19 07/21/20 History chlorthalidone 25 mg PO DAILY 07/21/20 07/21/20 History enalapril maleate 20 mg PO BID 07/21/20 07/21/20 History folic acid 1 mg PO DAILY 07/21/20 07/21/20 History furosemide 20 mg PO BID 07/21/20 07/21/20 History metoprolol tartrate 100 mg PO BID 07/21/20 07/21/20 History topiramate 50 mg PO DAILY 07/21/20 07/21/20 History Patient History Medical History (Updated 07/25/20 @ 14:21 by Jonn Bowman MD) Anemia Anxiety Depression GERD (gastroesophageal reflux disease) Hyperlipidemia Hypertension Hypothyroidism Osteoarthritis of hip Paranoid schizophrenia, chronic condition Seizure disorder last was 2002--on tegretol, follows with Dr. Vee Mcnulty Vitamin D deficiency Surgical History History of appendectomy History of cholecystectomy History of colonoscopy History of umbilical hernia repair History of wisdom tooth extraction Family History Father Family history of diabetes mellitus Mother Family history of diabetes mellitus Brother Family history of diabetes mellitus Other No family history of adverse response to anesthesia Social History Smoking Status: Never smoker Second Hand Exposure: Yes (mom smoked); Hx Alcohol Use: Yes Alcohol type: other Hx Substance Use: Yes (last used 40yrs ago) Last Used Substance Other:: last used 40yrs ago Preferred Language: Tunisian Communication Ability: Effective Nitro Worker Required: No Beliefs That Will Affect Care: None marital status: Single Current Living Situation: Alone How many Children do You have: 0 Other Information That Helps Us Care for You: No Feels Safe at Home: Yes Safety Concerns: Feels Safe At This Time Assistive Devices: Walker Physical Exam Physical Exam: In general this is an obese white male lying supine in bed without complaints. HEENT exam is negative. Neck is supple with full carotid upstrokes. No carotid bruits. Jugular venous pressure is flat at 90. There is no thyromegaly. Cardiovascular exam reveals a regular rhythm with normal S1- S2. Heart sounds are distant. No obvious murmurs. Lungs are clear without rales, rhonchi or wheezes. Abdomen is soft without bruits. Extremities reveal intact radial artery pulses bilaterally. There is no peripheral edema. Results & Data ([facility]) Vital Signs (Past 12 Hours) Vital Signs Temp Pulse Pulse Resp BP Pulse Ox 07/25/20 14:27 90 22 90 07/25/20 07:29 36.8 C 95 H 18 132/75 96 07/25/20 04:34 87 20 93 Laboratory Results CBC notes hemoglobin of 8.0, hematocrit 23.2, white count 7.77, platelet count [id number]. Electrolytes note a sodium 137, potassium 3.2, chloride 103, bicarb 22, BUN 86, creatinine 3.09, glucose of 113. Troponin I level on presentation was 0.025 with a follow-up value of 0.021. BNP is 1215. Diagnostic Findings EKG notes sinus rhythm with first-degree AV block. Echocardiogram notes hyperdynamic left ventricular systolic function with ejection fraction of great er than 70%. There was mild LVH and no evidence of valvular vegetations or abnormalities. Thoracic spine MRIs described above. CT scan of chest notes a right-sided pneumonia. Five sets of blood cultures note MRSA. PG Care Time/CCT Total # of Minutes Spent Total Time Spent with Patient: Total time spent is greater than 50% in coordination of care (as documented) at patient's floor/unit and/or counseling patient: Coding Level of Care Code 38223 Inpt Consult Level 4 Diagnoses MRSA bacteremia R78.81; B95.62 HTN (hypertension) I10 HLD (hyperlipidemia) E78.5
[2020-07-25 16:11] LABS: HCO3 ABG 23 mmol/L (19-24); Oxygen Saturation ABG 93.6 % (90-95); PCO2 ABG 31 mmHg (35-46); PO2 ABG 83 mmHg (80-95); pH ABG 7.49 (7.35-7.45)
[2020-07-25 16:13] LABS: Allen Test Pos (Pos)
--- NOTE | 2020-07-25 17:18 | Anesthesiology Consultation ---
Date of Service July 25, 2020 Assessment & Plan (1) Encounter for pre-operative examination: Chart Review Chart Review: Acceptable Risk for Surgery (Rapid covid test done 07/21/20) History Height/Weight Height: 5 ft 11 in Weight: 129 kg Allergies Allergy/AdvReac Type Severity Reaction Status Date / Time loxapine AdvReac Mild restless Verified 07/22/20 16:46 and nervous morphine AdvReac Mild nausea/vomi Verified 07/22/20 16:46 ting Medications Home Medications Medication Instructions Recorded Confirmed Last Taken cholecalciferol (vitamin D3) 2,000 unit PO QAM 01/13/19 07/21/20 07/21/20 [Vitamin D3] levothyroxine 50 mcg PO QAM 01/13/19 07/21/20 07/21/20 edsfzimcwskw-rurijcwz-aekhvt 1 tab PO QAM 01/13/19 07/21/20 07/21/20 [Multivitamin 50 Plus] simvastatin 20 mg PO HS 01/13/19 07/21/20 07/20/20 venlafaxine 150 mg PO QAM 01/13/19 07/21/20 07/21/20 chlorthalidone 25 mg PO DAILY 07/21/20 07/21/20 07/21/20 enalapril maleate 20 mg PO BID 07/21/20 07/21/20 07/21/20 folic acid 1 mg PO DAILY 07/21/20 07/21/20 07/21/20 furosemide 20 mg PO BID 07/21/20 07/21/20 07/21/20 metoprolol tartrate 100 mg PO BID 07/21/20 07/21/20 07/21/20 topiramate 50 mg PO DAILY 07/21/20 07/21/20 07/21/20 Active Medications Generic Name Dose Route Start Last Admin Trade Name Freq PRN Reason Stop Dose Admin Acetaminophen 1,000 mg 07/21/20 23:06 07/22/20 21:00 Acetaminophen 500 Mg Tab PO 08/20/20 23:05 1,000 mg Q8H PRN Administration Fever Albuterol 3 ml 07/25/20 03:11 07/25/20 14:27 Albut/Ipratrop 3mg/0.5mg Neb 3 Ml Vial NEB 08/24/20 06:59 3 ml Q4R PRN Administration wheezing Folic Acid 1 mg 07/22/20 09:00 07/25/20 07:26 Folic Acid 1 Mg Tab PO 08/21/20 08:59 1 mg DAILY KAYODE Administration Levothyroxine Sodium 50 mcg 07/22/20 06:30 07/25/20 05:27 Levothyroxine Sodium 50 Mcg Tablet PO 08/21/20 06:29 50 mcg DAILYBB KAYODE Administration Metoprolol Tartrate 25 mg 07/21/20 21:00 07/25/20 07:27 Metoprolol Tartrate 25 Mg Tab PO 08/20/20 20:59 25 mg BID KAYODE Administration Ondansetron HCl 4 mg 07/21/20 14:07 07/21/20 16:38 Ondansetron Inj 2 Mg/Ml 2 Ml Vial IV 08/20/20 14:06 4 mg Q4H PRN Administration Nausea Polyethylene Glycol 17 gm 07/25/20 09:00 07/25/20 13:54 Polyethylene (Miralax) 17 Gm Pack PO 08/24/20 08:59 17 gm BID KAYODE Administration Topiramate 50 mg 07/22/20 09:00 07/25/20 07:28 Topiramate 50 Mg Tab PO 08/21/20 08:59 50 mg DAILY KAYODE Administration Past Medical History Medical History (Updated 07/25/20 @ 17:19 by Galdino Martinez MD) OCTAVIO (acute kidney injury) Anemia Anxiety Depression GERD (gastroesophageal reflux disease) Hyperlipidemia Hypertension Hypothyroidism MRSA bacteremia Obesity Osteoarthritis of hip Paranoid schizophrenia, chronic condition Seizure disorder last was 2002--on tegretol, follows with Dr. Vee Mcnulty Vitamin D deficiency Past Family History Family History Father Family history of diabetes mellitus Mother Family history of diabetes mellitus Brother Family history of diabetes mellitus Other No family history of adverse response to anesthesia Past Surgical History Surgical History History of appendectomy History of cholecystectomy History of colonoscopy History of umbilical hernia repair History of wisdom tooth extraction Social History Smoking Status: Never smoker Hx Alcohol Use: Yes Alcohol type: other alcohol intake frequency: holidays/special occasions only Hx Substance Use: Yes (last used 40yrs ago) substance use type: marijuana Last Used Substance Other:: last used 40yrs ago Physical Exam Vital Signs Last Vital Signs Temp 37.0 C 07/25/20 15:15 Pulse 95 H 07/25/20 15:15 Resp 20 07/25/20 15:15 BP 129/73 07/25/20 15:15 Pulse Ox 98 07/25/20 15:15 Testing Laboratory Results 07/25/20 07:04 07/25/20 07:04 Urine Color Dark Yellow 07/21/20 10:50 Urine Appearance Turbid (Clear) A 07/21/20 10:50 Urine pH 5.0 (4.5-7.5) 07/21/20 10:50 Ur Specific [place] 1.027 (1.000-1.030) 07/21/20 10:50 Urine Protein 1+ (Negative) H 07/21/20 10:50 Urine Glucose (UA) Negative (Negative) 07/21/20 10:50 Urine Ketones Trace (Negative) H 07/21/20 10:50 Urine Nitrite Negative (Negative) 07/21/20 10:50 Ur Leukocyte Esterase Trace (Negative) H 07/21/20 10:50 Urine WBC (Auto) 1-5 /hpf (0-5) 07/21/20 10:50 Urine RBC (Auto) 0-4 /hpf (0-4) 07/21/20 10:50 U Hyaline Cast (Auto) >30 /lpf (0-5) H 07/21/20 10:50 U Epithel Cells (Auto) >30 /lpf (0-5) H 07/21/20 10:50 Urine Bacteria (Auto) Negative (Negative) 07/21/20 10:50 Blood Type AB Positive 07/21/20 11:27 Antibody Screen NEGATIVE 07/21/20 11:27 07/23/20 08:37 Aerobic Blood Culture - Preliminary Blood Staph aureus MRSA Anaerobic Blood Culture - Preliminary No growth in Anaerobic bottle after 48 hours. 07/22/20 09:28 Aerobic Blood Culture - Preliminary Blood Staph aureus MRSA Anaerobic Blood Culture - Preliminary No growth in Anaerobic bottle after 48 hours. 07/22/20 09:39 Aerobic Blood Culture - Preliminary Blood Staph aureus MRSA Anaerobic Blood Culture - Preliminary No growth in Anaerobic bottle after 48 hours. 07/21/20 11:27 Aerobic Blood Culture - Final Blood Staph aureus MRSA Anaerobic Blood Culture - Final Staph aureus MRSA 07/21/20 10:25 Aerobic Blood Culture - Final Blood Staph aureus MRSA Anaerobic Blood Culture - Final Staph aureus MRSA 07/21/20 10:50 Urine Culture - Final Urine,Straight Cath No growth - less than 1,000 colonies/mL. Electrocardiogram Date: 07/24/20 Findings: + NSR @ (99) Echocardiogram Date: 07/22/20 EF: 70% LV Function: normal Valvular Disease: + no significant valvular disease
[2020-07-25] MEDS: POTASSIUM CHLORIDE CRTAB 20 MEQ TABCR PO SCH ×2 (17:43→20:21)
[2020-07-25] MEDS ORDERED: FUROSEMIDE 20 MG in SYRINGE 0 ML IV ONE (17:45)
[2020-07-25] MEDS ORDERED: VANCOMYCIN HCL 1,500 MG in SODIUM CHLORIDE 0.9% 500 ML IV ONE (18:00)
[2020-07-25] MEDS: HEPARIN SOD 5,000 UNIT/0.5 ML VIAL SQ SCH (20:22)
[2020-07-25 22:57] LABS: Influenza A virus by PCR Negative (Neg); Influenza B virus by PCR Negative (Neg); RSV by PCR Negative (Neg); SARS CoV2 RNA(COVID-19) InHosp NEGATIVE (Negative)
[2020-07-26] MEDS: ALBUT/IPRATROP 3MG/0.5MG NEB 3 ML VIAL NEB PRN ×3 (01:42→20:42)
[2020-07-26] MEDS: LEVOTHYROXINE SODIUM 50 MCG TABLET PO SCH (06:41)
[2020-07-26] MEDS: TOPIRAMATE 50 MG TAB PO SCH (07:44)
[2020-07-26] MEDS: HEPARIN SOD 5,000 UNIT/0.5 ML VIAL SQ SCH ×2 (07:44→20:12)
[2020-07-26] MEDS: METOPROLOL TARTRATE 25 MG TAB PO SCH ×2 (07:44→20:11)
[2020-07-26 07:48] LABS: Hematocrit (blood only) 22.8 % (42-52); Hemoglobin 7.7 g/dL (14.0-18.0); Mean Corpuscular Hemoglobin 36.8 pg (25-34); Mean Corpuscular Hgb Conc 33.8 g/dL (32-36); Mean Corpuscular Volume 109.1 fL (80-100); Platelet Count 226 K/uL (130-400); RDW Coefficient of Variation 14.4 % (11.5-14.5); RDW Standard Deviation 57.6 fL (36.4-46.3); Red Blood Count 2.09 M/uL (4.7-6.1); White Blood Count 7.69 K/uL (4.8-10.8)
[2020-07-26 08:38] LABS: Albumin Globulin Ratio 0.4 (0.9-2); Albumin Level 1.9 gm/dl (3.4-5.0); BUN Creatinine Ratio 28.2 (10-20); Bilirubin,Total 0.8 mg/dl (0.2-1); Calcium 8.7 mg/dl (8.5-10.1); Est GFR (African American) 31.4; Est GFR (Non-African American) 27.1; Globulin 4.4 gm/dl (2.5-4.0); Magnesium 2.6 mg/dl (1.8-2.4); Phosphorus 4.1 mg/dl (2.5-4.9); Potassium 3.8 mmol/L (3.5-5.1); Total Protein 6.3 gm/dl (6.4-8.2)
--- NOTE | 2020-07-26 09:46 | Cardiology Progress Note ---
Date of Service July 26, 2020 Assessment & Plan (1) MRSA bacteremia: -5 sets of blood cultures positive for MRSA. -infectious Disease feels that a ANNI will better dictate his continued management. -scheduled for ANNI later today. (2) HTN (hypertension): -adequate control on current medical regimen. -mild LVH on current echocardiogram. (3) HLD (hyperlipidemia): -continue simvastatin. Admission and Anticipated Discharge Date Admission Date: July 21, 2020 Subjective The patient is resting comfortably in bed without complaints of chest pain, dyspnea, fever, or chills. Have discussed the need for a transesophageal echocardiogram. Physical Exam Physical Exam: In general this is an obese white male lying supine in bed without complaints. HEENT exam is negative. Neck is supple with full carotid upstrokes. No carotid bruits. Jugular venous pressure is flat at 90. There is no thyromegaly. Cardiovascular exam reveals a regular rhythm with normal S1- S2. Heart sounds are distant. No obvious murmurs. Lungs are clear without rales, rhonchi or wheezes. Abdomen is soft without bruits. Extremities reveal intact radial artery pulses bilaterally. There is no peripheral edema. Results & Data ([facility]) Vital Signs (Past 12 Hours) Vital Signs Temp Pulse Resp BP Pulse Ox 07/26/20 07:28 37.2 C 84 20 118/68 95 07/26/20 01:42 89 20 95 07/25/20 23:48 37.2 C 88 18 123/74 97 PG Care Time/CCT Total # of Minutes Spent Total Time Spent with Patient: Total time spent is greater than 50% in coordination of care (as documented) at patient's floor/unit and/or counseling patient: Coding Level of Care Code 40272 Subseq Hosp Care Lvl 3 Diagnoses MRSA bacteremia R78.81; B95.62 HTN (hypertension) I10 HLD (hyperlipidemia) E78.5
--- NOTE | 2020-07-26 09:49 | Magnetic Resonance Report ---
MR lumbar spine wo con CLINICAL HISTORY: 65 years-old Male with Discitis/osteomyelitis. Acute severe low back pain with cli nical concern for discitis/osteomyelitis. COMPARISON: MRI thoracic spine 07/22/2020, CT abdomen and pelvis July 21, 2020 TECHNIQUE: Multiplanar, multi sequence MRI of the lumbar spine was performed without intravenous cont rast. FINDINGS: Exam is limited secondary to motion artifact and patient body habitus. No gross extraspinal abnormali ty identified on the peanut separator localizer images. Sagittal STIR images were not provided which also limits the study. Axial T1 images are also not provided. Diffusely decreased T1 marrow signal is again note d which is suggestive of bone demineralization. Epidural lipomatosis throughout the lumbar spine cont ributes to background degree of multilevel central canal stenosis. No endplate erosions, intervertebr al, paravertebral or epidural fluid collections identified to suggest discitis/osteomyelitis. T12-L1: Mild intervertebral disc space narrowing with spondylitic spurring, small circumferential an nular disc bulge with posterior disc osteophyte complex. Ligamentum flavum thickening with moderate f acet arthrosis. There is at least mild central canal and foraminal narrowing seen on the sagittal whitley ges. L1-L2: Mild posterior intervertebral disc space narrowing with spondylitic spurring, small posterior annular disc bulge with ligamentum flavum thickening and moderate facet arthrosis. Mild central kendall l stenosis with mild bilateral foraminal narrowing. L2-L3: Spondylitic spurring with small posterior annular disc bulge. Ligamentum flavum thickening wi th moderate facet arthrosis. AP dimension of the central canal measures 6 mm. There is resultant mode rate to severe central canal stenosis with mild bilateral foraminal narrowing. L3-L4: Mild intervertebral disc space narrowing. Spondylitic spurring with small circumferential raj ular disc bulge. Ligamentum flavum thickening with moderate facet arthrosis. Mild to moderate central canal stenosis with mild to moderate bilateral foraminal narrowing. L4-L5: Spondylitic spurring with circumferential annular disc bulge. Ligamentum flavum thickening wi th severe facet arthrosis and moderate facet effusions, right greater than left. AP dimension of the thecal sac measures 7 mm. Moderate central canal stenosis with at least moderate narrowing of the lat eral recesses. Severe right with moderate to severe left foraminal stenosis. L5-S1: Moderate to severe intervertebral disc space narrowing with spondylitic spurring and circumfe rential annular disc bulge. Central disc osteophyte complex is noted in conjunction with an annular f issure. Severe facet arthrosis is noted with mild ligamentum flavum thickening. AP dimension of the t hecal sac measures 7 mm. Moderate central canal stenosis with at least moderate narrowing of the late ral recesses, left greater then right. Moderate to severe bilateral foraminal narrowing. IMPRESSION: 1. Limited exam as above. 2. No definite evidence of discitis/osteomyelitis. 3. Epidural lipomatosis is noted in conjunction with multilevel intervertebral disc space narrowing, spondylitic spurring, facet arthrosis and ligamentum flavum thickening results in multilevel central canal and foraminal stenosis as detailed above. Central canal stenosis is most pronounced at L2-L3 an d the foraminal narrowing is most pronounced at L4-L5 and L5-S1. ACT 112: Negative or not required by law. The above report was generated using voice recognition software. It may contain grammatical, syntax o r spelling errors. Electronically signed by: Michel Lind M.D. 07/26/2020 9:48 AM
[2020-07-26] MEDS: FOLIC ACID 1 MG TAB PO SCH (09:50)
[2020-07-26] MEDS: POLYETHYLENE (MIRALAX) 17 GM PACK PO SCH ×2 (09:50→16:50)
--- NOTE | 2020-07-26 10:02 | Nephrology Progress Note ---
Date of Service July 26, 2020 Assessment & Plan (1) Acute renal failure: * Baseline Cr 1.35 mg/dL in February * Clinical presentation consistent with ATN and prerenal physiology * Developed evidence of urinary retention requiring Gardner placement * Gardner remains intact but following ANNI today, may consider voiding trial at any time * Chlorthalidone and enalapril have been held * Furosemide 20 mg provided yesterday, volume status acceptable. Continue as needed to encouarage slightly negative fluid balance. * Electrolytes acceptable * Volume status euvolemic * No additional IVF, now in slightly negative but acceptable fluid balance as kidney function improves * Plan of care reviewed with hospitalist this AM * Medications are appropriately dosed for kidney function (2) Anemia: * No signs of active bleeding. * Iron deficiency noted. IV iron deferred due to bacteremia. (3) HTN (hypertension): * BP acceptable. Volume status controlled. Admission and Anticipated Discharge Date Admission Date: July 21, 2020 Subjective No acute events overnight. No fevers or chills. Breathing comfortably. I discussed the plan of care with Dr. Lamar this AM. Furosemide 20 mg x 1 dose yesterday to encourage negative fluid balance. Review of Systems Review of Systems: All systems reviewed & are unremarkable except as noted in HPI & below Physical Exam Constitutional: well developed; no acute distress Eyes: no scleral abnormality and no corneal abnormality ENMT: Mouth: no oral mucosal abnormality and oral mucous membranes not dry Neck: normal visual inspection and trachea midline Respiratory: normal respiratory effort Auscultation: + rales Cardiovascular: Rate/Rhythm: regular rate Heart Sounds: normal S1 and normal S2 Extremities: no edema Musculoskeletal: Extremities: no cyanosis and no clubbing Skin: normal turgor; no lesions Neurologic: Motor/Sensory: no tremor and no asterixis Psychiatric: Orientation: alert and oriented x 3 Results & Data ([facility]) Vital Signs (Past 12 Hours) Vital Signs Temp Pulse Resp BP Pulse Ox 07/26/20 07:28 37.2 C 84 20 118/68 95 07/26/20 01:42 89 20 95 07/25/20 23:48 37.2 C 88 18 123/74 97 Laboratory Results Laboratory Results - last 24 hr 07/25/20 07/25/20 07/25/20 15:33 15:33 15:58 WBC RBC Hgb Hct MCV MCH MCHC RDW Std Deviation RDW Coeff of Peng Plt Count MPV ABG pH 7.49 H ABG pCO2 31 L ABG pO2 83 ABG HCO3 23 ABG O2 Saturation 93.6 ABG Base Excess 0.0 Dave Test Pos Barometric Pressure 737.9 Oxygen Given 1L Sodium Potassium Chloride Carbon Dioxide Anion Gap BUN Creatinine Est Cr Clr Drug Dosing Est GFR ( Amer) Est GFR (Non-Af Amer) BUN/Creatinine Ratio Glucose Calcium Phosphorus Magnesium Total Bilirubin AST ALT Alkaline Phosphatase NT-Pro-B Natriuret Pep 891 Total Protein Albumin Globulin Albumin/Globulin Ratio Procalcitonin 3.63 H Random Vancomycin COVID-19 Eval Order SARS-CoV-2 (PCR) Influenza Type A (PCR) Influenza Type B (PCR) RSV (RT-PCR) 07/25/20 07/25/20 07/26/20 22:06 22:06 07:09 WBC RBC Hgb Hct MCV MCH MCHC RDW Std Deviation RDW Coeff of Peng Plt Count MPV ABG pH ABG pCO2 ABG pO2 ABG HCO3 ABG O2 Saturation ABG Base Excess Dave Test Barometric Pressure Oxygen Given Sodium Potassium Chloride Carbon Dioxide Anion Gap BUN Creatinine Est Cr Clr Drug Dosing Est GFR ( Amer) Est GFR (Non-Af Amer) BUN/Creatinine Ratio Glucose Calcium Phosphorus Magnesium Total Bilirubin AST ALT Alkaline Phosphatase NT-Pro-B Natriuret Pep Total Protein Albumin Globulin Albumin/Globulin Ratio Procalcitonin Random Vancomycin 22.6 COVID-19 Eval Order CovFluRsv at [facility] SARS-CoV-2 (PCR) NEGATIVE Influenza Type A (PCR) Negative Influenza Type B (PCR) Negative RSV (RT-PCR) Negative 07/26/20 07/26/20 07:09 07:09 WBC 7.69 RBC 2.09 L Hgb 7.7 L Hct 22.8 L MCV 109.1 H MCH 36.8 H MCHC 33.8 RDW Std Deviation 57.6 H RDW Coeff of Peng 14.4 Plt Count 226 MPV 11.0 H ABG pH ABG pCO2 ABG pO2 ABG HCO3 ABG O2 Saturation ABG Base Excess Dave Test Barometric Pressure Oxygen Given Sodium 138 Potassium 3.8 D Chloride 104 Carbon Dioxide 24 Anion Gap 9.0 BUN 69 H Creatinine 2.43 H D Est Cr Clr Drug Dosing 42.0 Est GFR ( Amer) 31.4 Est GFR (Non-Af Amer) 27.1 BUN/Creatinine Ratio 28.2 H Glucose 108 H Calcium 8.7 Phosphorus 4.1 Magnesium 2.6 H Total Bilirubin 0.8 AST 131 H ALT 235 H Alkaline Phosphatase 84 NT-Pro-B Natriuret Pep Total Protein 6.3 L Albumin 1.9 L Globulin 4.4 H Albumin/Globulin Ratio 0.4 L Procalcitonin Random Vancomycin COVID-19 Eval Order SARS-CoV-2 (PCR) Influenza Type A (PCR) Influenza Type B (PCR) RSV (RT-PCR) PG Care Time/CCT Total # of Minutes Spent Total Time Spent with Patient: Total time spent is greater than 50% in coordination of care (as documented) at patient's floor/unit and/or counseling patient: Coding Level of Care Code 45869 Subseq Hosp Care Lvl 3 Diagnoses Acute renal failure N17.9 Anemia D64.9 HTN (hypertension) I10
--- NOTE | 2020-07-26 10:17 | Cardiac Catheterization ---
[facility] Data: Other Sports Coach Or Instructor Cardiac Status Clinical evaluation leading to the procedure Diagnostic Physicians Name: Oscar Lechuga MD Cardiac Cath Procedure Full Procedure Date July 26, 2020 Pre-Procedure Diagnosis Pre-Procedure Diagnosis: Positive Stress Test AUC Score AUC Score: 8 Post-Procedure Diagnosis Post-Procedure Diagnosis: Severe CAD Procedure(s) Performed Procedure(s) Performed: Coronary Angiography Paper Cup Machine Tender Oscar Lechuga MD Leather Parts Matcher(s) Tariq Estimated Blood Loss Estimated Blood Loss: < 50 ml Medication(s) Medication(s): Fentanyl, Heparin, Lidocaine 1%, Nicardipine, Nitroglycerin (for arterial spasm) and Versed Summary of Findings Procedures: 1. Coronary angiography 2. Moderate sedation Indication: 1. Poor exercise tolerance with dyspnea on exertion and abnormal exercise stress echo suggesting mid LAD ischemia. Also has bicuspid aortic valve with moderate aortic stenosis. Coronary angiography: 1. Left main coronary artery: No significant CAD. 2. Left anterior descending: Mid LAD 40%. Late mid LAD 70 to 80%. Early distal LAD 70 to 80%. RAJI-3 flow. Small D1, medium caliber D2. Very small D3 involving distal LAD stenosis. 3. Circumflex: Large caliber vessel. Large OM1. Very small OM 2 and OM 3 vessels. Mid circumflex 20 to 30%. Large PL branch proximal 40% 4. Right coronary artery: RCA is large and dominant. Luminal irregularities throughout the RCA. Proximal RCA 30 to 40%. Distal RCA 30%. No significant CAD noted in the PL and PDA branches. Procedural details: 1. Initially, the right radial artery was cannulated but there was difficulty advancing the catheter and angiography was performed. Very small caliber vessel which allowed the advancement of a 4 [place] JR4 diagnostic catheter however spasm then occurred. The decision was made to continue forward with left radial approach which was done successfully. 2. There was no attempt to cross the aortic valve as echocardiogram was in 2019, most recently June 2020, demonstrated moderate aortic stenosis. Moderate sedation: 1. Sedation start time: 8:31 AM 2. Sedation end time: Impression: 1. Severe CAD involving the mid and distal LAD. 2. Otherwise, mild and moderate nonobstructive CAD. 3. Previously documented moderate aortic stenosis. Plan: 1. Images reviewed with Dr. Patton of interventional cardiology for consideration of PCI of the LAD. Discussed findings with I attest to the content of the Intraoperative Record and any orders documented therein. Any exceptions are noted below. PG Care Time/CCT Total # of Minutes Spent Total Time Spent with Patient: Total time spent is greater than 50% in coordination of care (as documented) at patient's floor/unit and/or counseling patient:
[2020-07-26] MEDS ORDERED: MIDAZOLAM HCL 5 MG/ML 1 ML VIAL ONE (11:25)
[2020-07-26] MEDS ORDERED: fentaNYL citrate 100 MCG/2 ML VIAL ONE (11:25)
--- NOTE | 2020-07-26 11:31 | Pre Anesthesia Assessment ---
Date of Service July 26, 2020 Pre Sedation Assessment Vital Signs Temp Pulse Pulse Resp BP Pulse Ox 07/26/20 11:26 85 18 126/69 97 07/26/20 07:28 37.2 C 84 20 118/68 95 07/26/20 01:42 89 20 95 07/25/20 23:48 37.2 C 88 18 123/74 97 07/25/20 15:15 37.0 C 95 H 20 129/73 98 07/25/20 14:27 90 22 90 Cardiovascular + regular rate Respiratory normal respiratory effort, lungs clear to auscultation Pre-Sedation Airway Assessment Smoking Status: Never smoker Oral Cavity: + Chipped Teeth Mallampati Class: III ASA: ASA3 NPO Status Date of Last Intake of Fluids: 07/26/20 Time of Last Intake of Fluids: 07:00 Last Oral Intake of Fluids Comment: sips with meds Date of Last Intake of Solid Food: 07/25/20 Time of Last Intake of Solid Foods: 19:00 Procedure Planning Contraindications for Sedation: none Current Medications Reviewed: Yes Notes The planned sedation has been discussed with the patient. Informed Consent was obtained. I have identified the patient, determined the appropriateness of sedation and have assessed the patient immediately prior to the procedure. All medicine(s) and interventions are by my order.
--- NOTE | 2020-07-26 12:18 | Post Operative Brief Note ---
Cardiology Brief Post Op Date of Surgery July 26, 2020 Pre & Post Diagnosis Operation Date: 07/26/20 11:30 <No data on this case meets the specified criteria> Procedure ANNI International Marketing Coordinator Oscar Lechuga MD Pig Farm Manager Evy Estimated Blood Loss 0 Findings See Below Poor images of the LV. No obvious vegetation on the mitral or aortic valves. Tricuspid and pulmonic valves are not well seen. Complications none
--- NOTE | 2020-07-26 12:19 | Post Anesthesia Assessment ---
Date of Service July 26, 2020 Post Sedation Assessment Vital Signs Temp Pulse Pulse Pulse Resp BP BP 07/26/20 12:10 84 17 118/64 07/26/20 12:05 83 17 127/61 07/26/20 12:00 86 17 125/71 07/26/20 11:55 84 17 133/62 07/26/20 11:50 83 17 135/55 L 07/26/20 11:26 85 18 126/69 07/26/20 07:28 37.2 C 84 20 118/68 07/26/20 01:42 89 20 07/25/20 23:48 37.2 C 88 18 123/74 07/25/20 15:15 37.0 C 95 H 20 129/73 07/25/20 14:27 90 22 Pulse Ox 07/26/20 12:10 98 07/26/20 12:05 100 07/26/20 12:00 100 07/26/20 11:55 100 07/26/20 11:50 100 07/26/20 11:26 97 07/26/20 07:28 95 07/26/20 01:42 95 07/25/20 23:48 97 07/25/20 15:15 98 07/25/20 14:27 90 Recovery Score Activity: Moves 4 extremities Respiration: Deep Breath/Cough Circulation: +/-20% PreAnes Value Consciousness: Arouseable (by name) Oxygen Saturation: O2 needed for >90% Post Anesthesia Score: 8 Discharge Sedation Level of Care: Fast Track Phase II Post Sedation Plan On clinical assessment, the patient appears to have tolerated the sedation without complications. Patient is recovering as anticipated. Patient will continue to be monitored by nursing and may be discharged when sedation discharge criteria are met per below protocol. Upon Completions of procedure up to 15 minutes continue every 5 minute vital signs and the P.A.R. score; then discharge to a Phase I or Fast Track to Phase II per the following guidelines: * Discharge Patient to appropriate Phase II area if PAR is 8 or greater or return to pre- procedure baseline. The post - procedure orders will be as directed. * If PAR score is less than 8 or not return to pre-procedure baseline then patient will follow Phase I monitoring till PAR is reached for Phase II. The Phase I may be done in procedure room or may call to secure a Phase I area. * If naloxone or flumazenil are used for reversal, hold in Phase I for continued monitoring from when last reversal dose was given for a minimum of 60 minutes or longer pending the nurse and/or physician discretion of patient condition before discharge to Phase II. Please call the Sedation Physician to re-evaluate and complete post-note for discharge to Phase II area. Do NOT discharge from procedure sedation or Phase 1 until post- sedation evaluation note is complete by procedure /sedation MD Sedation Discharge Instructions to be given to the patient at discharge to home.
[2020-07-26] MEDS ORDERED: VANCOMYCIN HCL 1,500 MG in SODIUM CHLORIDE 0.9% 500 ML IV ONE (19:30)
--- NOTE | 2020-07-26 19:30 | XCELERA ---
[id number]
--- NOTE | 2020-07-26 21:06 | Hospitalist Progress Note ---
Date of Service July 26, 2020 Assessment & Plan (1) Shortness of breath: Increasing shortness of breath the last few days. Has had large net positive fluid balance. -BNP improved, procal also improved - will hold off repeat CT chest with DuGilda (2) MRSA bacteremia: In blood cultures on admission. CT chest incidentally showed possible thoracic spine involvement. MRI thoracic spine on 07/22 was limited, but showed "non-specific prevertebral soft tissue edema/swelling adjacent to the large anterior osteophytes at the T8-T9 and T10-11 levels." - Started on daptomycin on 07/22 for positive blood cultures. - Stopped dapto and started vancomycin given CT chest on 07/22 indicated possible pneumonia. - MRSA swab positive & procalcitonin was 13.31. Neither of these conclusively rule in/out pneumonia; however, enough evidence for me that I would not feel comfortable treating with daptomycin. - ID consult today hopefully - Left elbow with mild erythema, but no fluid and no pain. Will monitor. Patient continues ot have bacteremia, latest culture from 07/24 came back positive today. will recheck blood culture today. (3) Acute renal failure: Baseline Cr ~1.00 - 1.35, eGFR 60 - 75. - Cr on admission was 4.1 with hyaline and granular casts. This points towards dehydration leading to possible ATN. Likely compounded by chlorthalidone, enalapril, and furosemide. - Hold above medications - Nephrology consulted - Agree with current plan. - IV fluids ran until 07/24. Stopped for increased wheezing and shortness of breath. Cr better today. Also may have had some element of post-renal as he had >800 mL in his bladder and needed Gardner placed on 07/23. will continue to trand creatinine (4) Anemia: Long-standing macrocytic anemia with recent B12/folate in 02/2020 both normal. Baseline hgb ~12-14. - ED provider was concerned about upper GI bleed given hgb was 9.7 on admission with heme-positive. -> Started on PPI gtt in the ED. - For me, he denies melena, but does reports some small amounts of bright red blood per rectum over the last few days, that he associates with painful passage of BMs. Concern more for hemorrhoidal bleed or anal fissure which could account of heme(+) stool in absence of clear melenic or bloody stools. - Hgb stable today at 8.0. Blood smear shows no schistocytes and is consistent with iron deficiency. Will defer IV iron given his bacteremia. (5) HTN (hypertension): Presently borderline hypotensive; likely from hypovolemia/sepsis. - Will defer BP meds for now - Monitor (6) Chest pain: Present since yesterday's fall. Pain occurs with chest wall palpation. Troponin and EKG normal. Negative stress test in 2018. Likely MSK in nature. - Tylenol PRN - Can add topical treatment as well if needed -> Had some extra pain on 07/24. EKG stable and troponin negative. Still feel it is MSK. (7) Seizure disorder: Follows with Vee Mcnulty. - Carbamazepine level was 12.0 on admission (upper range of normal) - Hold carbamazepine for now. (8) Paranoid schizophrenia, chronic condition: No presents issues. - Hold venlafaxine given renal injury - Continue topiramate (9) Depression: - As above with schizophrenia (10) HLD (hyperlipidemia): - Hold statin for now (11) DVT prophylaxis: Hgb has been stable x 3 days. Will start heparin given his critical illness. Would not want DVT/PE to complicate an already very sick patient. Admission and Anticipated Discharge Date Admission Date: July 21, 2020 Subjective Patient reports no new symptoms today. Review of Systems Review of Systems: All systems reviewed & are unremarkable except as noted in HPI & below Physical Exam Physical Exam: Constitutional: WD/WN, vitals as above Eyes: EOM intact bilaterally; no conjunctival abnormality ENMT: external ear and nose normal, oropharynx normal Neck: trachea midline, no thyromegaly normal visual inspection Respiratory: no distress, rales at bases Cardiovascular: RRR, no murmur, no edema Gastrointestinal (Abdomen): Inspection/Auscultation: abdomen normal to inspection; abdomen not distended Musculoskeletal: no cyanosis or clubbing, extremities motor strength 5/5 Skin: no rashes, warm and dry (Thorough look from head to toes. No rashes or ulcers noted. Few scabs.) no ulcers and no erythema Neurologic: moves all extremities and awake Psychiatric: Orientation: alert, oriented to person and cooperative Results & Data Results & Data ([facility]) Vital Signs (Past 12 Hours) Vital Signs Temp Pulse Pulse Resp BP BP Pulse Ox 07/26/20 20:42 102 H 18 96 07/26/20 20:03 37.2 C 102 H 28 H 133/88 96 07/26/20 15:18 37.2 C 101 H 18 135/80 95 07/26/20 14:45 37.1 C 93 H 20 144/76 H 94 07/26/20 14:33 93 H 20 94 07/26/20 14:15 37.0 C 89 20 136/73 94 07/26/20 13:45 37.3 C 96 H 20 134/71 96 07/26/20 13:30 36.9 C 94 H 20 133/67 96 07/26/20 13:15 37.2 C 86 20 138/73 96 07/26/20 13:00 36.9 C 88 20 137/71 96 07/26/20 12:47 36.8 C 86 20 144/62 H 96 07/26/20 12:27 87 17 157/107 H 94 07/26/20 12:20 87 17 147/97 H 96 07/26/20 12:15 87 17 153/74 H 94 07/26/20 12:10 84 17 118/64 98 07/26/20 12:05 83 17 127/61 100 07/26/20 12:00 86 17 125/71 100 07/26/20 11:55 84 17 133/62 100 07/26/20 11:50 83 17 135/55 L 100 07/26/20 11:26 85 18 126/69 97 PG Care Time/CCT Total # of Minutes Spent Total Time Spent with Patient: Total time spent is greater than 50% in coordination of care (as documented) at patient's floor/unit and/or counseling patient: Coding Level of Care Code 68005 Subseq Hosp Care Lvl 3 Diagnoses Shortness of breath R06.02 MRSA bacteremia R78.81; B95.62 Acute renal failure N17.9 Anemia D64.9 HTN (hypertension) I10 Chest pain R07.9 Seizure disorder G40.909 Paranoid schizophrenia, chronic condition F20.0 Depression F32.9 HLD (hyperlipidemia) E78.5 DVT prophylaxis Z29.9 Time Spent (min) 35
[2020-07-27] MEDS: ALBUT/IPRATROP 3MG/0.5MG NEB 3 ML VIAL NEB PRN (05:24)
[2020-07-27] MEDS: ACETAMINOPHEN 500 MG TAB PO PRN ×3 (06:17→23:39)
[2020-07-27] MEDS: LEVOTHYROXINE SODIUM 50 MCG TABLET PO SCH (06:18)
--- NOTE | 2020-07-27 08:54 | Pharmacy Report ---
Pharmacy Abx Dose Short Note - Date of Service July 27, 2020 - Assessment & Plan Assessment 65 year old M receiving vancomycin for treatment of MRSA bacteremia Day # 5 of antimicrobial therapy. Plan Vancomycin * Random level of 18.6 mcg/mL is therapeutic (patient specific pharmacokinetics indicate half-life of ~36 hours with elimination constant of 0.019 hr-1 --> of note, this has not changed for the patient EVEN THOUGH kidney function has improved from serum creatinine of 5 mg/dL to 2.4 mg/dL today). * Continue dose of 1500 mg IV every 24 hours * Goal trough level for MRSA bacteremia : ~20 mcg/mL * Trough ordered for: 07/27/20 around 1730 --> if this is therapeutic it is safe to schedule vancomycin 1500 mg IV q24 hours Pharmacy will continue to follow and will adjust dose/frequency as necessary. Thank you.
[2020-07-27] MEDS: HEPARIN SOD 5,000 UNIT/0.5 ML VIAL SQ SCH ×2 (09:03→20:05)
[2020-07-27] MEDS: METOPROLOL TARTRATE 25 MG TAB PO SCH ×2 (09:03→20:05)
[2020-07-27] MEDS: POLYETHYLENE (MIRALAX) 17 GM PACK PO SCH ×2 (09:04→20:05)
[2020-07-27] MEDS: TOPIRAMATE 50 MG TAB PO SCH (09:04)
[2020-07-27] MEDS: FOLIC ACID 1 MG TAB PO SCH (09:04)
[2020-07-27 10:22] LABS: Albumin Level 1.9 gm/dl (3.4-5.0); BUN Creatinine Ratio 29.6 (10-20); Calcium 8.5 mg/dl (8.5-10.1); Creatinine Clr Calc Pharmacy 50.3 ml/min; Est GFR (Non-African American) 33.6; Potassium 3.4 mmol/L (3.5-5.1)
[2020-07-27 10:23] LABS: Phosphorus 4.3 mg/dl (2.5-4.9)
--- NOTE | 2020-07-27 12:58 | Cardiology Progress Note ---
Date of Service July 27, 2020 Assessment & Plan (1) MRSA bacteremia: -6 sets of blood cultures positive for MRSA. -ANNI showed no evidence of a valvular vegetation. -management per ID. (2) HTN (hypertension): -borderline control on current medical regimen. -mild LVH on echocardiogram. (3) HLD (hyperlipidemia): -continue simvastatin. Admission and Anticipated Discharge Date Admission Date: July 21, 2020 Subjective The patient is resting comfortably in bed without complaints of chest pain or dyspnea. Results of his ANNI were discussed in detail. Physical Exam Physical Exam: In general this is an obese white male lying supine in bed without complaints. HEENT exam is negative. Neck is supple with full carotid upstrokes. No carotid bruits. Jugular venous pressure is flat at 90. There is no thyromegaly. Cardiovascular exam reveals a regular rhythm with normal S1- S2. Heart sounds are distant. No obvious murmurs. Lungs are clear without rales, rhonchi or wheezes. Abdomen is soft without bruits. Extremities reveal intact radial artery pulses bilaterally. There is no peripheral edema. Results & Data ([facility]) Vital Signs (Past 12 Hours) Vital Signs Temp Pulse Resp BP BP Pulse Ox 07/27/20 11:25 36.8 C 74 20 170/82 H 97 07/27/20 07:19 36.4 C L 96 H 20 143/72 H 95 07/27/20 05:24 94 H 22 94 PG Care Time/CCT Total # of Minutes Spent Total Time Spent with Patient: Total time spent is greater than 50% in coordination of care (as documented) at patient's floor/unit and/or counseling patient: Coding Level of Care Code 30817 Subseq Hosp Care Lvl 3 Diagnoses MRSA bacteremia R78.81; B95.62 HTN (hypertension) I10 HLD (hyperlipidemia) E78.5
--- NOTE | 2020-07-27 17:31 | Nephrology Progress Note ---
Date of Service July 27, 2020 Assessment & Plan (1) Acute renal failure: * Baseline Cr 1.35 mg/dL in February * Clinical presentation consistent with ATN and prerenal physiology * Developed evidence of urinary retention requiring Gardner placement * Gardner remains intact but voiding trial may be attempted once patient is more ambulatory * Chlorthalidone and enalapril have been held * Furosemide provided PRN to encourage slightly negative fluid balance * Electrolytes acceptable * Volume status euvolemic * Medications are appropriately dosed for kidney function * No additional recommendations at this time, nephrology will sign-off. Please call with questions or concerns. Admission and Anticipated Discharge Date Admission Date: July 21, 2020 Subjective Resting comfortably in bed. No additional chest pain. Breathing comfortably. No fevers or chills. Review of Systems Review of Systems: All systems reviewed & are unremarkable except as noted in HPI & below Physical Exam Constitutional: well developed; no acute distress Eyes: no scleral abnormality and no corneal abnormality ENMT: Mouth: no oral mucosal abnormality and oral mucous membranes not dry Neck: normal visual inspection and trachea midline Respiratory: normal respiratory effort Auscultation: lungs clear to auscultation bilaterally Cardiovascular: Rate/Rhythm: regular rate Heart Sounds: normal S1 and normal S2 Extremities: no edema Musculoskeletal: Extremities: no cyanosis and no clubbing Skin: normal turgor; no lesions Neurologic: Motor/Sensory: no tremor and no asterixis Psychiatric: Orientation: alert and oriented x 3 Results & Data ([facility]) Vital Signs (Past 12 Hours) Vital Signs Temp Pulse Resp BP BP Pulse Ox 07/27/20 11:25 36.8 C 74 20 170/82 H 97 07/27/20 07:19 36.4 C L 96 H 20 143/72 H 95 Laboratory Results Laboratory Results - last 24 hr 07/26/20 07/27/20 17:31 09:06 Sodium 135 L Potassium 3.4 L Chloride 102 Carbon Dioxide 22 Anion Gap 11.0 BUN 60 H Creatinine 2.03 H D Est Cr Clr Drug Dosing 50.3 Est GFR ( Amer) 39.0 Est GFR (Non-Af Amer) 33.6 BUN/Creatinine Ratio 29.6 H Glucose 117 H Calcium 8.5 Phosphorus 4.3 Albumin 1.9 L Vancomycin Trough 18.6 PG Care Time/CCT Total # of Minutes Spent Total Time Spent with Patient: Total time spent is greater than 50% in coordination of care (as documented) at patient's floor/unit and/or counseling patient: Coding Level of Care Code 21904 Subseq Hosp Care Lvl 2 Diagnoses Acute renal failure N17.9
--- NOTE | 2020-07-27 18:37 | Pharmacy Report ---
Pharmacy Abx Dose Short Note - Date of Service July 27, 2020 - Assessment & Plan Assessment 65 year old M receiving vancomycin for treatment of MRSA bacteremia Day #6 of antimicrobial therapy. Plan Vancomycin * Random level of 18.2 mcg/mL is therapeutic * Will order Vancomycin 1500mg IV Q24h after multiple therapeutic random levels * Goal trough level ~20 mcg/mL * Trough will be ordered as appropriate Pharmacy will continue to follow and will adjust dose/frequency as necessary. Thank you.
[2020-07-27] MEDS: VANCOMYCIN HCL 1,500 MG in SODIUM CHLORIDE 0.9% 500 ML IV SCH (19:11)
--- NOTE | 2020-07-27 22:39 | Hospitalist Progress Note ---
Date of Service July 27, 2020 Assessment & Plan (1) Shortness of breath: Resolved. Patient had increasing shortness of breath the last few days. Has had large net positive fluid balance and this resolved. -BNP improved, procal also improved (2) MRSA bacteremia: In blood cultures on admission. CT chest incidentally showed possible thoracic spine involvement. MRI thoracic spine on 07/22 was limited, but showed "non-specific prevertebral soft tissue edema/swelling adjacent to the large anterior osteophytes at the T8-T9 and T10-11 levels." - Started on daptomycin on 07/22 for positive blood cultures. - Stopped dapto and started vancomycin given CT chest on 07/22 indicated possible pneumonia. - MRSA swab positive & procalcitonin was 13.31. Neither of these conclusively rule in/out pneumonia; however, enough evidence for me that I would not feel comfortable treating with daptomycin. - ID consult today hopefully - Left elbow with mild erythema, but no fluid and no pain. Will monitor. Patient continues ot have bacteremia, latest culture from 07/26 came back positive today. will recheck blood culture tomorrow. He had vanco for about 5-6 days now and is still positive. Will discuss with ID to figure out if we should change antibiotics. (3) Acute renal failure: Baseline Cr ~1.00 - 1.35, eGFR 60 - 75. - Cr on admission was 4.1 with hyaline and granular casts. This points towards dehydration leading to possible ATN. Likely compounded by chlorthalidone, enalapril, and furosemide. - Hold above medications - Nephrology consulted - Agree with current plan. - IV fluids ran until 07/24. Stopped for increased wheezing and shortness of breath. Cr better today. Also may have had some element of post-renal as he had >800 mL in his bladder and needed Gardner placed on 07/23. will continue to trand creatinine (4) Anemia: Long-standing macrocytic anemia with recent B12/folate in 02/2020 both normal. Baseline hgb ~12-14. - ED provider was concerned about upper GI bleed given hgb was 9.7 on admission with heme-positive. -> Started on PPI gtt in the ED. - For me, he denies melena, but does reports some small amounts of bright red blood per rectum over the last few days, that he associates with painful passage of BMs. Concern more for hemorrhoidal bleed or anal fissure which could account of heme(+) stool in absence of clear melenic or bloody stools. - Hgb stable today at 7.7. Blood smear shows no schistocytes and is consistent with iron deficiency. Will defer IV iron given his bacteremia. (5) HTN (hypertension): Presently borderline hypotensive; likely from hypovolemia/sepsis. - Will defer BP meds for now - Monitor (6) Chest pain: Present since yesterday's fall. Pain occurs with chest wall palpation. Troponin and EKG normal. Negative stress test in 2018. Likely MSK in nature. - Tylenol PRN - Can add topical treatment as well if needed -> Had some extra pain on 07/24. EKG stable and troponin negative. Still feel it is MSK. (7) Seizure disorder: Follows with Vee Mcnulty. - Carbamazepine level was 12.0 on admission (upper range of normal) - Hold carbamazepine for now. (8) Paranoid schizophrenia, chronic condition: No presents issues. - Hold venlafaxine given renal injury - Continue topiramate (9) Depression: - As above with schizophrenia (10) HLD (hyperlipidemia): - Hold statin for now (11) DVT prophylaxis: Hgb has been stable x 3 days. Will start heparin given his critical illness. Would not want DVT/PE to complicate an already very sick patient. Admission and Anticipated Discharge Date Admission Date: July 21, 2020 Subjective Patient reports feeling well. He has no complaints, no fever chills, SOB today. Review of Systems Review of Systems: All systems reviewed & are unremarkable except as noted in HPI & below Physical Exam Physical Exam: Constitutional: WD/WN, vitals as above Eyes: EOM intact bilaterally; no conjunctival abnormality ENMT: external ear and nose normal, oropharynx normal Neck: trachea midline, no thyromegaly normal visual inspection Respiratory: no distress, rales at bases Cardiovascular: RRR, no murmur, no edema Gastrointestinal (Abdomen): Inspection/Auscultation: abdomen normal to inspection; abdomen not distended Musculoskeletal: no cyanosis or clubbing, extremities motor strength 5/5 Skin: no rashes, warm and dry (Thorough look from head to toes. No rashes or ulcers noted. Few scabs.) no ulcers and no erythema Neurologic: moves all extremities and awake Psychiatric: Orientation: alert, oriented to person and cooperative Results & Data Results & Data ([facility]) Vital Signs (Past 12 Hours) Vital Signs Temp Pulse Resp BP Pulse Ox 07/27/20 11:25 36.8 C 74 20 170/82 H 97 PG Care Time/CCT Total # of Minutes Spent Total Time Spent with Patient: Total time spent is greater than 50% in coordination of care (as documented) at patient's floor/unit and/or counseling patient: Coding Level of Care Code 41188 Subseq Hosp Care Lvl 3 Diagnoses Shortness of breath R06.02 MRSA bacteremia R78.81; B95.62 Acute renal failure N17.9 Anemia D64.9 HTN (hypertension) I10 Chest pain R07.9 Seizure disorder G40.909 Paranoid schizophrenia, chronic condition F20.0 Depression F32.9 HLD (hyperlipidemia) E78.5 DVT prophylaxis Z29.9 Time Spent (min) 35
[2020-07-28] MEDS: LEVOTHYROXINE SODIUM 50 MCG TABLET PO SCH (06:27)
[2020-07-28] MEDS: HEPARIN SOD 5,000 UNIT/0.5 ML VIAL SQ SCH ×2 (08:18→22:17)
[2020-07-28] MEDS: METOPROLOL TARTRATE 25 MG TAB PO SCH ×2 (08:19→22:16)
[2020-07-28] MEDS: POLYETHYLENE (MIRALAX) 17 GM PACK PO SCH ×2 (08:19→22:13)
[2020-07-28] MEDS: TOPIRAMATE 50 MG TAB PO SCH (08:19)
[2020-07-28] MEDS: FOLIC ACID 1 MG TAB PO SCH (08:20)
[2020-07-28 09:22] LABS: Hematocrit (blood only) 24.7 % (42-52); Hemoglobin 8.2 g/dL (14.0-18.0); Mean Corpuscular Hemoglobin 36.3 pg (25-34); Mean Corpuscular Hgb Conc 33.2 g/dL (32-36); Mean Corpuscular Volume 109.3 fL (80-100); Mean Platelet Volume 10.6 fL (7.4-10.4); Platelet Count 330 K/uL (130-400); RDW Coefficient of Variation 14.4 % (11.5-14.5); RDW Standard Deviation 57.9 fL (36.4-46.3); Red Blood Count 2.26 M/uL (4.7-6.1); White Blood Count 9.88 K/uL (4.8-10.8)
[2020-07-28 09:44] LABS: Creatinine Clr Calc Pharmacy 59.4 ml/min; Est GFR (African American) 47.6; Est GFR (Non-African American) 41.1
[2020-07-28] MEDS: CEFTAROLINE FOSAMIL ACETATE 600 MG in SODIUM CHLORIDE 0.9% 250 ML IV SCH ×2 (10:28→22:09)
[2020-07-28] MEDS: ACETAMINOPHEN 500 MG TAB PO PRN (12:36)
[2020-07-28] MEDS: VANCOMYCIN HCL 1,500 MG in SODIUM CHLORIDE 0.9% 500 ML IV SCH (19:07)
[2020-07-28] MEDS: ALBUT/IPRATROP 3MG/0.5MG NEB 3 ML VIAL NEB PRN (21:36)
--- NOTE | 2020-07-28 22:32 | Hospitalist Progress Note ---
Date of Service July 28, 2020 Assessment & Plan (1) Shortness of breath: Resolved. Patient had increasing shortness of breath the last few days. Has had large net positive fluid balance and this resolved. -BNP improved, procal also improved (2) MRSA bacteremia: In blood cultures on admission. CT chest incidentally showed possible thoracic spine involvement. MRI thoracic spine on 07/22 was limited, but showed "non-specific prevertebral soft tissue edema/swelling adjacent to the large anterior osteophytes at the T8-T9 and T10-11 levels." - Started on daptomycin on 07/22 for positive blood cultures. - Stopped dapto and started vancomycin given CT chest on 07/22 indicated possible pneumonia. - MRSA swab positive & procalcitonin was 13.31. Neither of these conclusively rule in/out pneumonia; however, enough evidence for me that I would not feel comfortable treating with daptomycin. - ID consulted: had a discussion with Dr. Magdaleno, will add ceftaroline 600 mg IVQ12H in addition to vancomycin. -Patient has been on vanco for about 7 days now and this will be considered a failure. -ID wants patient to continue on both vanco and ceftaroline for the time being. -Will repeat cultures tomorrow. - Left elbow with mild erythema, but no fluid and no pain. Will monitor. (3) Acute renal failure: Baseline Cr ~1.00 - 1.35, eGFR 60 - 75. - Cr on admission was 4.1 with hyaline and granular casts. This points towards dehydration leading to possible ATN. Likely compounded by chlorthalidone, enalapril, and furosemide. - Hold above medications - Nephrology consulted - Agree with current plan. - IV fluids ran until 07/24. Stopped for increased wheezing and shortness of breath. Cr better today. -SOB has improved. (4) Anemia: Long-standing macrocytic anemia with recent B12/folate in 02/2020 both normal. Baseline hgb ~12-14. - ED provider was concerned about upper GI bleed given hgb was 9.7 on admission with heme-positive. -> Started on PPI gtt in the ED. - For me, he denies melena, but does reports some small amounts of bright red blood per rectum over the last few days, that he associates with painful passage of BMs. Concern more for hemorrhoidal bleed or anal fissure which could account of heme(+) stool in absence of clear melenic or bloody stools. - Hgb stable today at 7.7. Blood smear shows no schistocytes and is consistent with iron deficiency. Will defer IV iron given his bacteremia. (5) HTN (hypertension): Presently borderline hypotensive; likely from hypovolemia/sepsis. - Will defer BP meds for now - Monitor (6) Chest pain: Present since yesterday's fall. Pain occurs with chest wall palpation. Troponin and EKG normal. Negative stress test in 2018. Likely MSK in nature. - Tylenol PRN - Can add topical treatment as well if needed -> Had some extra pain on 07/24. EKG stable and troponin negative. Still feel it is MSK. (7) Seizure disorder: Follows with Vee Mcnulty. - Carbamazepine level was 12.0 on admission (upper range of normal) - Hold carbamazepine for now. (8) Paranoid schizophrenia, chronic condition: No presents issues. - Hold venlafaxine given renal injury - Continue topiramate (9) Depression: - As above with schizophrenia (10) HLD (hyperlipidemia): - Hold statin for now (11) DVT prophylaxis: Hgb has been stable x 3 days. Will start heparin given his critical illness. Would not want DVT/PE to complicate an already very sick patient. Admission and Anticipated Discharge Date Admission Date: July 21, 2020 Subjective Patient reports no new episodes of Shortness of breath. Patient denies any fever, chills, nausea. Review of Systems Review of Systems: All systems reviewed & are unremarkable except as noted in HPI & below Physical Exam Physical Exam: Constitutional: WD/WN, vitals as above Eyes: EOM intact bilaterally; no conjunctival abnormality ENMT: external ear and nose normal, oropharynx normal Neck: trachea midline, no thyromegaly normal visual inspection Respiratory: no distress, rales at bases Cardiovascular: RRR, no murmur, no edema Gastrointestinal (Abdomen): Inspection/Auscultation: abdomen normal to inspection; abdomen not distended Musculoskeletal: no cyanosis or clubbing, extremities motor strength 5/5 Skin: no rashes, warm and dry (Thorough look from head to toes. No rashes or ulcers noted. Few scabs.) no ulcers and no erythema Neurologic: moves all extremities and awake Psychiatric: Orientation: alert, oriented to person and cooperative Results & Data Results & Data ([facility]) Vital Signs (Past 12 Hours) Vital Signs Temp Pulse Pulse Resp BP BP Pulse Ox 07/28/20 22:15 89 168/80 H 96 07/28/20 21:36 90 16 98 07/28/20 19:16 37.5 C 07/28/20 16:00 37.6 C H 86 18 147/76 H 98 07/28/20 14:58 36.9 C 90 20 142/78 H 97 07/28/20 14:51 36.6 C 75 16 181/88 H 97 07/28/20 11:19 36.9 C 84 18 170/74 H 97 PG Care Time/CCT Total # of Minutes Spent Total Time Spent with Patient: Total time spent is greater than 50% in coordination of care (as documented) at patient's floor/unit and/or counseling patient: Coding Level of Care Code 58123 Subseq Hosp Care Lvl 3 Diagnoses Shortness of breath R06.02 MRSA bacteremia R78.81; B95.62 Acute renal failure N17.9 Anemia D64.9 HTN (hypertension) I10 Chest pain R07.9 Seizure disorder G40.909 Paranoid schizophrenia, chronic condition F20.0 Depression F32.9 HLD (hyperlipidemia) E78.5 DVT prophylaxis Z29.9 Time Spent (min) 35
[2020-07-29] MEDS: LEVOTHYROXINE SODIUM 50 MCG TABLET PO SCH (05:22)
[2020-07-29] MEDS: ALBUT/IPRATROP 3MG/0.5MG NEB 3 ML VIAL NEB PRN ×2 (08:02→23:27)
[2020-07-29 08:30] LABS: Creatinine Clr Calc Pharmacy 57.4 ml/min; Est GFR (African American) 45.7; Est GFR (Non-African American) 39.4
[2020-07-29] MEDS: CEFTAROLINE FOSAMIL ACETATE 600 MG in SODIUM CHLORIDE 0.9% 250 ML IV SCH ×2 (09:34→19:31)
[2020-07-29] MEDS: HEPARIN SOD 5,000 UNIT/0.5 ML VIAL SQ SCH ×2 (09:35→19:30)
[2020-07-29] MEDS: POLYETHYLENE (MIRALAX) 17 GM PACK PO SCH ×2 (09:36→19:30)
[2020-07-29] MEDS: METOPROLOL TARTRATE 25 MG TAB PO SCH ×2 (09:36→19:30)
[2020-07-29] MEDS: TOPIRAMATE 50 MG TAB PO SCH (09:36)
[2020-07-29] MEDS: FOLIC ACID 1 MG TAB PO SCH (09:36)
[2020-07-29 09:41] LABS: Potassium 3.2 mmol/L (3.5-5.1)
[2020-07-29] MEDS ORDERED: VANCOMYCIN TROUGH ONE (19:30)
[2020-07-29] MEDS: VANCOMYCIN HCL 1,500 MG in SODIUM CHLORIDE 0.9% 500 ML IV SCH (21:49)
--- NOTE | 2020-07-29 21:57 | Hospitalist Progress Note ---
Date of Service July 29, 2020 Assessment & Plan (1) Shortness of breath: Resolved. Patient had increasing shortness of breath the last few days. Has had large net positive fluid balance and this resolved. -BNP improved, procal also improved (2) MRSA bacteremia: In blood cultures on admission. CT chest incidentally showed possible thoracic spine involvement. MRI thoracic spine on 07/22 was limited, but showed "non-specific prevertebral soft tissue edema/swelling adjacent to the large anterior osteophytes at the T8-T9 and T10-11 levels." - Started on daptomycin on 07/22 for positive blood cultures. - Stopped dapto and started vancomycin given CT chest on 07/22 indicated possible pneumonia. - MRSA swab positive & procalcitonin was 13.31. Neither of these conclusively rule in/out pneumonia; however, enough evidence for me that I would not feel comfortable treating with daptomycin. - ID consulted: had a discussion with Dr. Magdaleno, will add ceftaroline 600 mg IVQ12H in addition to vancomycin. -Patient has been on vanco for about 7 days now and this will be considered a failure. -ID wants patient to continue on both vanco and ceftaroline for the time being. -Cultures were obtained again. -will repeat cultures every 48 hours until cleared. - Left elbow with mild erythema, but no fluid and no pain. Will monitor. (3) Acute renal failure: Baseline Cr ~1.00 - 1.35, eGFR 60 - 75. - Cr on admission was 4.1 with hyaline and granular casts. This points towards dehydration leading to possible ATN. Likely compounded by chlorthalidone, enalapril, and furosemide. - Hold above medications - Nephrology consulted - Agree with current plan. - IV fluids ran until 07/24. Stopped for increased wheezing and shortness of breath. Cr better today. -SOB has improved. (4) Anemia: Long-standing macrocytic anemia with recent B12/folate in 02/2020 both normal. Baseline hgb ~12-14. - ED provider was concerned about upper GI bleed given hgb was 9.7 on admission with heme-positive. -> Started on PPI gtt in the ED. - For me, he denies melena, but does reports some small amounts of bright red blood per rectum over the last few days, that he associates with painful passage of BMs. Concern more for hemorrhoidal bleed or anal fissure which could account of heme(+) stool in absence of clear melenic or bloody stools. - Hgb stable at 8.2. Blood smear shows no schistocytes and is consistent with iron deficiency. Will defer IV iron given his bacteremia. (5) HTN (hypertension): Presently borderline hypotensive; likely from hypovolemia/sepsis. - Will defer BP meds for now - Monitor (6) Chest pain: Present since yesterday's fall. Pain occurs with chest wall palpation. Troponin and EKG normal. Negative stress test in 2018. Likely MSK in nature. - Tylenol PRN - Can add topical treatment as well if needed -> Had some extra pain on 07/24. EKG stable and troponin negative. Still feel it is MSK. (7) Seizure disorder: Follows with Vee Mcnulty. - Carbamazepine level was 12.0 on admission (upper range of normal) - Hold carbamazepine for now. (8) Paranoid schizophrenia, chronic condition: No presents issues. - Hold venlafaxine given renal injury - Continue topiramate (9) Depression: - As above with schizophrenia (10) HLD (hyperlipidemia): - Hold statin for now (11) DVT prophylaxis: Hgb has been stable x 3 days. Will start heparin given his critical illness. Would not want DVT/PE to complicate an already very sick patient. Admission and Anticipated Discharge Date Admission Date: July 21, 2020 Subjective 65 yo male reports no new symptoms. Review of Systems Review of Systems: All systems reviewed & are unremarkable except as noted in HPI & below Physical Exam Physical Exam: Constitutional: WD/WN, vitals as above Eyes: EOM intact bilaterally; no conjunctival abnormality ENMT: external ear and nose normal, oropharynx normal Neck: trachea midline, no thyromegaly normal visual inspection Respiratory: no distress, rales at bases Cardiovascular: RRR, no murmur, no edema Gastrointestinal (Abdomen): Inspection/Auscultation: abdomen normal to inspection; abdomen not distended Musculoskeletal: no cyanosis or clubbing, extremities motor strength 5/5 Skin: no rashes, warm and dry (Thorough look from head to toes. No rashes or ulcers noted. Few scabs.) no ulcers and no erythema Neurologic: moves all extremities and awake Psychiatric: Orientation: alert, oriented to person and cooperative Results & Data Results [facility] ([facility]) Vital Signs (Past 12 Hours) Vital Signs Temp Pulse Resp BP Pulse Ox 07/29/20 14:56 37 C 78 20 155/72 H 97 PG Care Time/CCT Total # of Minutes Spent Total Time Spent with Patient: Total time spent is greater than 50% in coordination of care (as documented) at patient's floor/unit and/or counseling patient: Coding Level of Care Code 62298 Subseq Hosp Care Lvl 3 Diagnoses Shortness of breath R06.02 MRSA bacteremia R78.81; B95.62 Acute renal failure N17.9 Anemia D64.9 HTN (hypertension) I10 Chest pain R07.9 Seizure disorder G40.909 Paranoid schizophrenia, chronic condition F20.0 Depression F32.9 HLD (hyperlipidemia) E78.5 DVT prophylaxis Z29.9 Time Spent (min) 35
[2020-07-29] MEDS: ACETAMINOPHEN 500 MG TAB PO PRN (23:12)
[2020-07-30] MEDS: LEVOTHYROXINE SODIUM 50 MCG TABLET PO SCH (05:36)
[2020-07-30 07:37] LABS: Creatinine Clr Calc Pharmacy 59.1 ml/min; Est GFR (African American) 47.3; Est GFR (Non-African American) 40.8
--- NOTE | 2020-07-30 09:16 | Pharmacy Report ---
Pharmacy Abx Dose Short Note - Date of Service July 30, 2020 - Assessment & Plan Assessment * Mr He is a 65 year old M receiving Vancomycin and Ceftaroline for treatment of MRSA bacteremia. * Bacteremia has persisted despite ongoing therapeutic vancomycin levels, thus likely representing treatment failure. Per ID, continue vanc and ceftaroline for now. * Given vanc failure, target vanc level ~20-25mcg/mL. Vanc trough level this mornin.8 mcg/mL. 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 * Despite BMI >35 and suboptimal renal function, patient has not demonstrated that he is accumulating vancomycin. * Vancomycin dose increased today in an effort to achieve goal level. Plan Vancomycin * Trough level of 17.8 mcg/mL is subtherapeutic * Change to Vancomycin 1750mg IV q24h * Goal trough level for bacteremia/failed response to vancomycin: ~20-25 mcg/mL * Will order an additional trough level in a few days if patient remains hospitalized and on vancomycin. Pharmacy will continue to follow and will adjust dose/frequency as necessary. Thank you.
[2020-07-30] MEDS: TOPIRAMATE 50 MG TAB PO SCH (10:49)
[2020-07-30] MEDS: METOPROLOL TARTRATE 25 MG TAB PO SCH ×2 (10:50→20:16)
[2020-07-30] MEDS: POLYETHYLENE (MIRALAX) 17 GM PACK PO SCH ×2 (10:52→20:16)
[2020-07-30] MEDS: FOLIC ACID 1 MG TAB PO SCH (10:52)
[2020-07-30] MEDS: HEPARIN SOD 5,000 UNIT/0.5 ML VIAL SQ SCH ×2 (10:54→20:16)
[2020-07-30] MEDS: CEFTAROLINE FOSAMIL ACETATE 600 MG in SODIUM CHLORIDE 0.9% 250 ML IV SCH ×2 (11:04→23:23)
[2020-07-30] MEDS: ACETAMINOPHEN 500 MG TAB PO PRN ×2 (11:04→23:22)
[2020-07-30] MEDS ORDERED: SUCRALFATE 1 GM/10 ML UDC PO SCH (17:00)
[2020-07-30] MEDS: VANCOMYCIN HCL 1,750 MG in SODIUM CHLORIDE 0.9% 500 ML IV SCH (20:12)
--- NOTE | 2020-07-30 22:53 | Hospitalist Progress Note ---
Date of Service July 30, 2020 Assessment & Plan (1) MRSA bacteremia: In blood cultures on admission. CT chest incidentally showed possible thoracic spine involvement. MRI thoracic spine on 07/22 was limited, but showed "non-specific prevertebral soft tissue edema/swelling adjacent to the large anterior osteophytes at the T8-T9 and T10-11 levels." - Started on daptomycin on 07/22 for positive blood cultures. - Stopped dapto and started vancomycin given CT chest on 07/22 indicated possib le pneumonia. - MRSA swab positive & procalcitonin was 13.31. Neither of these conclusively rule in/out pneumonia; - ID consulted: had a discussion with Dr. Magdaleno on 07/28, added ceftaroline 600 mg IV Q12H in addition to vancomycin. -Patient had been on vanco for almost 7 days prior to ceftaroline dose. -ID wants patient to continue on both vanco and ceftaroline for the time being. -Cultures were obtained again but latest culture still positive. -will repeat cultures every 48 hours until cleared. (2) Shortness of breath: Resolved. Patient had increasing shortness of breath the last few days. Has had large net positive fluid balance and this resolved. -BNP improved, procal also improved. (3) Acute renal failure: Baseline Cr ~1.00 - 1.35, eGFR 60 - 75. - Cr on admission was 4.1 with hyaline and granular casts. This points towards dehydration leading to possible ATN. Likely compounded by chlorthalidone, enalapril, and furosemide. - Hold above medications - Nephrology consulted - Agree with current plan. - IV fluids ran until 07/24. Stopped for increased wheezing and shortness of breath. Cr better today. -SOB has improved. (4) Anemia: Long-standing macrocytic anemia with recent B12/folate in 02/2020 both normal. Baseline hgb ~12-14. - ED provider was concerned about upper GI bleed given hgb was 9.7 on admission with heme-positive. -> Started on PPI gtt in the ED. - For me, he denies melena, but does reports some small amounts of bright red blood per rectum over the last few days, that he associates with painful passage of BMs. Concern more for hemorrhoidal bleed or anal fissure which could account of heme(+) stool in absence of clear melenic or bloody stools. - Hgb stable at 8.2. Blood smear shows no schistocytes and is consistent with iron deficiency. Will defer IV iron given his bacteremia. (5) HTN (hypertension): Presently borderline hypotensive; likely from hypovolemia/sepsis. - Will defer BP meds for now - Monitor (6) Chest pain: Present since yesterday's fall. Pain occurs with chest wall palpation. Troponin and EKG normal. Negative stress test in 2018. Likely MSK in nature. - Tylenol PRN -no longer complaining of this (7) Seizure disorder: Follows with Vee Mcnulty. - Carbamazepine level was 12.0 on admission (upper range of normal) - Hold carbamazepine for now. (8) Paranoid schizophrenia, chronic condition: No presents issues. - Hold venlafaxine given renal injury - Continue topiramate (9) Depression: - As above with schizophrenia (10) HLD (hyperlipidemia): - Hold statin for now (11) DVT prophylaxis: heparin. Admission and Anticipated Discharge Date Admission Date: July 21, 2020 Subjective Patient reports no new complaints. Feeling well. Review of Systems Review of Systems: All systems reviewed & are unremarkable except as noted in HPI & below Physical Exam Physical Exam: Constitutional: WD/WN, vitals as above Eyes: EOM intact bilaterally; no conjunctival abnormality ENMT: external ear and nose normal, oropharynx normal Neck: trachea midline, no thyromegaly normal visual inspection Respiratory: no distress, rales at bases Cardiovascular: RRR, no murmur, no edema Gastrointestinal (Abdomen): Inspection/Auscultation: abdomen normal to in spection; abdomen not distended Musculoskeletal: no cyanosis or clubbing, extremities motor strength 5/5 Skin: no ulcers and no erythema Neurologic: moves all extremities and awake Psychiatric: Orientation: alert, oriented to person and cooperative Results & Data Results & Data ([facility]) Vital Signs (Past 12 Hours) Vital Signs Temp Pulse Pulse Resp BP Pulse Ox 07/30/20 15:12 36.7 C 65 86 18 144/71 H 95 PG Care Time/CCT Total # of Minutes Spent Total Time Spent with Patient: Total time spent is greater than 50% in coordination of care (as documented) at patient's floor/unit and/or counseling patient: Coding Level of Care Code 83717 Subseq Hosp Care Lvl 3 Diagnoses MRSA bacteremia R78.81; B95.62 Shortness of breath R06.02 Acute renal failure N17.9 Anemia D64.9 HTN (hypertension) I10 Chest pain R07.9 Seizure disorder G40.909 Paranoid schizophrenia, chronic condition F20.0 Depression F32.9 HLD (hyperlipidemia) E78.5 DVT prophylaxis Z29.9 Time Spent (min) 35
[2020-07-31 06:30] LABS: Hematocrit (blood only) 23.9 % (42-52); Hemoglobin 7.9 g/dL (14.0-18.0); Mean Corpuscular Hemoglobin 36.6 pg (25-34); Mean Corpuscular Hgb Conc 33.1 g/dL (32-36); Mean Corpuscular Volume 110.6 fL (80-100); Mean Platelet Volume 10.2 fL (7.4-10.4); Platelet Count 348 K/uL (130-400); RDW Coefficient of Variation 14.6 % (11.5-14.5); RDW Standard Deviation 59.2 fL (36.4-46.3); Red Blood Count 2.16 M/uL (4.7-6.1); White Blood Count 8.14 K/uL (4.8-10.8)
[2020-07-31] MEDS: ACETAMINOPHEN 500 MG TAB PO PRN (07:08)
[2020-07-31] MEDS: LEVOTHYROXINE SODIUM 50 MCG TABLET PO SCH (07:09)
[2020-07-31 07:13] LABS: Calcium 8.7 mg/dl (8.5-10.1); Creatinine Clr Calc Pharmacy 56.8 ml/min; Est GFR (African American) 45.1; Est GFR (Non-African American) 38.9; Potassium 3.7 mmol/L (3.5-5.1)
[2020-07-31] MEDS: TOPIRAMATE 50 MG TAB PO SCH (09:47)
[2020-07-31] MEDS: METOPROLOL TARTRATE 25 MG TAB PO SCH ×2 (09:48→20:45)
[2020-07-31] MEDS: FOLIC ACID 1 MG TAB PO SCH (09:48)
[2020-07-31] MEDS: CEFTAROLINE FOSAMIL ACETATE 600 MG in SODIUM CHLORIDE 0.9% 250 ML IV SCH ×2 (09:48→22:24)
[2020-07-31] MEDS: HEPARIN SOD 5,000 UNIT/0.5 ML VIAL SQ SCH ×2 (09:49→20:45)
[2020-07-31] MEDS: POLYETHYLENE (MIRALAX) 17 GM PACK PO SCH ×2 (09:58→20:45)
--- NOTE | 2020-07-31 13:29 | Hospitalist Progress Note ---
Date of Service July 31, 2020 Assessment & Plan (1) MRSA bacteremia: In blood cultures on admission. CT chest incidentally showed possible thoracic spine involvement. MRI thoracic spine on 07/22 was limited, but showed "non-specific prevertebral soft tissue edema/swelling adjacent to the large anterior osteophytes at the T8-T9 and T10-11 levels." - Started on daptomycin on 07/22 for positive blood cultures. - Stopped dapto and started vancomycin given CT chest on 07/22 indicated possi ble pneumonia. - Started ceftaroline on 07/28 for continued bacteremia - ID recs from 07/26: Continue IV abx x 4 weeks after cleared blood culture, then likely switch to doxycycline 100 mg PO BID for 4 additional weeks. Follow ESR/CRP weekly. (2) Acute renal failure: Baseline Cr ~1.00 - 1.35, eGFR 60 - 75. - Cr on admission was 4.1 with hyaline and granular casts. This points towards dehydration leading to possible ATN. Likely compounded by chlorthalidone, enalapril, and furosemide. - Hold above medications - Nephrology consulted - Agree with current plan. - IV fluids ran until 07/24. - Cr now 1.8. (3) Anemia: Long-standing macrocytic anemia with recent B12/folate in 02/2020 both normal. Baseline hgb ~12-14. - ED provider was concerned about upper GI bleed given hgb was 9.7 on admission with heme-positive. -> Started on PPI gtt in the ED. - Stable hgb. No indication of GI bleed. Likely from iron deficiency and anemia of disease. Monitor. (4) HTN (hypertension): Presently BP is 145/75. Was initially hypotensive this admission, due to sepsis. - Will defer BP meds for now - Monitor (5) Chest pain: Present since yesterday's fall. Pain occurs with chest wall palpation. Troponin and EKG normal. Negative stress test in 2018. Likely MSK in nature. - Tylenol PRN - Resolved (6) Seizure disorder: Follows with Vee Mcnulty. - Carbamazepine level was 12.0 on admission (upper range of normal) - Hold carbamazepine for now. - Reached out to Dr. Rose on 07/31. Will restart per her recommendations. (7) Paranoid schizophrenia, chronic condition: No presents issues. - Continue topiramate - Restarted venlafaxine on 07/31 as renal function stable. (8) Depression: - As above with schizophrenia (9) HLD (hyperlipidemia): - Restart statin (10) DVT prophylaxis: Heparin 7,500 units SQ Q12h (weight-based dosing) Admission and Anticipated Discharge Date Admission Date: July 21, 2020 Subjective Overall, doing well today. Feels like he is getting stronger. Reports no fevers/chills, chest pain, shortness of breath, abdominal pain, nausea, or vomiting. Physical Exam Constitutional: WD/WN, vitals as above Eyes: EOM intact bilaterally; no conjunctival abnormality ENMT: external ear and nose normal, oropharynx normal Neck: trachea midline, no thyromegaly normal visual inspection Respiratory: normal respiratory effort, lungs clear to auscultation no respiratory distress and no labored breathing Cardiovascular: RRR, no murmur, no edema Gastrointestinal (Abdomen): Inspection/Auscultation: abdomen normal to inspection; abdomen not distended Musculoskeletal: no cyanosis or clubbing, extremities motor strength 5/5 Skin: no rashes, warm and dry no ulcers and no erythema Neurologic: moves all extremities and awake Psychiatric: Orientation: alert, oriented to person and cooperative Results & Data Results & Data ([facility]) Vital Signs (Past 12 Hours) Vital Signs Temp Pulse Resp BP Pulse Ox 07/31/20 09:08 36.9 C 95 H 18 143/77 H 95 PG Care Time/CCT Total # of Minutes Spent Total Time Spent with Patient: Total time spent is greater than 50% in coordination of care (as documented) at patient's floor/unit and/or counseling patient: Coding Level of Care Code 21068 Subseq Hosp Care Lvl 3 Diagnoses MRSA bacteremia R78.81; B95.62 Acute renal failure N17.9 Anemia D64.9 HTN (hypertension) I10 Chest pain R07.9 Seizure disorder G40.909 Paranoid schizophrenia, chronic condition F20.0 Depression F32.9 HLD (hyperlipidemia) E78.5 DVT prophylaxis Z29.9
[2020-07-31] MEDS ORDERED: MAGNESIUM HYDROXIDE SUSP 30 ML UDC PO ONE (13:32)
[2020-07-31] MEDS: VANCOMYCIN HCL 1,750 MG in SODIUM CHLORIDE 0.9% 500 ML IV SCH (19:38)
[2020-07-31] MEDS: carBAMazepine 200 MG TABLET PO SCH (20:45)
[2020-08-01] MEDS: LEVOTHYROXINE SODIUM 50 MCG TABLET PO SCH (05:48)
[2020-08-01 06:57] LABS: Hematocrit (blood only) 22.8 % (42-52); Hemoglobin 7.5 g/dL (14.0-18.0); Mean Corpuscular Hemoglobin 36.4 pg (25-34); Mean Corpuscular Hgb Conc 32.9 g/dL (32-36); Mean Corpuscular Volume 110.7 fL (80-100); Mean Platelet Volume 9.9 fL (7.4-10.4); Platelet Count 340 K/uL (130-400); RDW Coefficient of Variation 14.8 % (11.5-14.5); RDW Standard Deviation 59.4 fL (36.4-46.3); Red Blood Count 2.06 M/uL (4.7-6.1); White Blood Count 7.53 K/uL (4.8-10.8)
[2020-08-01] MEDS: ONDANSETRON INJ 2 MG/ML 2 ML VIAL IV PRN (07:30)
[2020-08-01 07:34] LABS: BUN Creatinine Ratio 15.8 (10-20); Calcium 8.4 mg/dl (8.5-10.1); Creatinine Clr Calc Pharmacy 59.7 ml/min; Est GFR (Non-African American) 41.4; Magnesium 2.2 mg/dl (1.8-2.4); Potassium 3.9 mmol/L (3.5-5.1)
[2020-08-01] MEDS: carBAMazepine 200 MG TABLET PO SCH ×2 (08:53→21:11)
[2020-08-01] MEDS: METOPROLOL TARTRATE 25 MG TAB PO SCH ×2 (08:53→21:11)
[2020-08-01] MEDS: HEPARIN SOD 5,000 UNIT/0.5 ML VIAL SQ SCH ×2 (08:53→21:12)
[2020-08-01] MEDS: TOPIRAMATE 50 MG TAB PO SCH (08:54)
[2020-08-01] MEDS: VENLAFAXINE HCL XR 150 MG CAPXR PO SCH (08:54)
[2020-08-01] MEDS: FOLIC ACID 1 MG TAB PO SCH (08:55)
[2020-08-01] MEDS: CEFTAROLINE FOSAMIL ACETATE 600 MG in SODIUM CHLORIDE 0.9% 250 ML IV SCH ×2 (09:06→23:46)
[2020-08-01] MEDS: POLYETHYLENE (MIRALAX) 17 GM PACK PO SCH ×2 (09:06→21:08)
--- NOTE | 2020-08-01 17:37 | Hospitalist Progress Note ---
Date of Service August 01, 2020 Assessment & Plan (1) MRSA bacteremia: In blood cultures on admission. CT chest incidentally showed possible thoracic spine involvement. MRI thoracic spine on 07/22 was limited, but showed "non-specific prevertebral soft tissue edema/swelling adjacent to the large anterior osteophytes at the T8-T9 and T10-11 levels." - Started on daptomycin on 07/22 for positive blood cultures. - Stopped dapto and started vancomycin given CT chest on 07/22 indicated possi ble pneumonia. - Started ceftaroline on 07/28 for continued bacteremia - ID recs from 07/26: Continue IV abx x 4 weeks after cleared blood culture, then likely switch to doxycycline 100 mg PO BID for 4 additional weeks. Follow ESR/CRP weekly. - Discussing with ID today. I have some concern as he indicates he wanted only ceftaroline, but wanted sensitivities first. Will speak with [facility] tomorrow (gone home) about getting sensitivities. Unclear cleared up by ID, will not stop vanc or ceftaroline. (2) Acute renal failure: Baseline Cr ~1.00 - 1.35, eGFR 60 - 75. - Cr on admission was 4.1 with hyaline and granular casts. This points towards dehydration leading to possible ATN. Likely compounded by chlorthalidone, enalapril, and furosemide. - Hold above medications - Nephrology consulted - Agree with current plan. - IV fluids ran until 07/24. - Cr now 1.7. (3) Anemia: Long-standing macrocytic anemia with recent B12/folate in 02/2020 both normal. Baseline hgb ~12-14. - ED provider was concerned about upper GI bleed given hgb was 9.7 on admission with heme-positive. -> Started on PPI gtt in the ED. - Stable hgb (7.5 today). No indication of GI bleed. Likely from iron deficiency and anemia of disease. Monitor. (4) HTN (hypertension): Presently BP is 140/80. Was initially hypotensive this admission, due to sepsis. - Will defer BP meds for now - Monitor (5) Chest pain: Present since yesterday's fall. Pain occurs with chest wall palpation. Troponin and EKG normal. Negative stress test in 2018. Likely MSK in nature. - Tylenol PRN - Resolved (6) Seizure disorder: Follows with Vee Mcnulty. - Carbamazepine level was 12.0 on admission (upper range of normal) - Reached out to Dr. Rose on 07/31. Restarted at home dose per her recommendations. (7) Paranoid schizophrenia, chronic condition: No presents issues. - Continue topiramate - Restarted venlafaxine on 07/31 as renal function stable. (8) Depression: - As above with schizophrenia (9) HLD (hyperlipidemia): - Restarted statin on 08/01 (10) DVT prophylaxis: Heparin 7,500 units SQ Q12h (weight-based dosing) Admission and Anticipated Discharge Date Admission Date: July 21, 2020 Subjective No major issues today. Feeling well. Reports no fevers/chills, chest pain, s hortness of breath, abdominal pain, nausea, or vomiting. Physical Exam Constitutional: WD/WN, vitals as above Eyes: EOM intact bilaterally; no conjunctival abnormality ENMT: external ear and nose normal, oropharynx normal Neck: trachea midline, no thyromegaly normal visual inspection Respiratory: normal respiratory effort, lungs clear to auscultation no respiratory distress and no labored breathing Auscultation: + crackles Cardiovascular: RRR, no murmur, no edema Gastrointestinal (Abdomen): Inspection/Auscultation: abdomen normal to inspection; abdomen not distended Musculoskeletal: no cyanosis or clubbing, extremities motor strength 5/5 Skin: no rashes, warm and dry no ulcers and no erythema Neurologic: moves all extremities and awake Psychiatric: Orientation: alert, oriented to person and cooperative Results & Data Results & Data ([facility]) Vital Signs (Past 12 Hours) Vital Signs Temp Pulse Resp BP Pulse Ox 08/01/20 15:46 36.9 C 18 137/78 93 08/01/20 07:54 36.9 C 81 18 159/85 H 94 PG Care Time/CCT Total # of Minutes Spent Total Time Spent with Patient: Total time spent is greater than 50% in coordination of care (as documented) at patient's floor/unit and/or counseling patient: Coding Level of Care Code 13730 Subseq Hosp Care Lvl 2 Diagnoses MRSA bacteremia R78.81; B95.62 Acute renal failure N17.9 Anemia D64.9 HTN (hypertension) I10 Chest pain R07.9 Seizure disorder G40.909 Paranoid schizophrenia, chronic condition F20.0 Depression F32.9 HLD (hyperlipidemia) E78.5 DVT prophylaxis Z29.9
[2020-08-01] MEDS ORDERED: VANCOMYCIN TROUGH ONE (19:30)
[2020-08-01] MEDS: VANCOMYCIN HCL 1,750 MG in SODIUM CHLORIDE 0.9% 500 ML IV SCH (20:45)
[2020-08-01] MEDS: SIMVASTATIN 20 MG TAB PO SCH (21:11)
[2020-08-02] MEDS: LEVOTHYROXINE SODIUM 50 MCG TABLET PO SCH (06:07)
[2020-08-02] MEDS: METOPROLOL TARTRATE 25 MG TAB PO SCH ×2 (08:15→19:57)
[2020-08-02] MEDS: TOPIRAMATE 50 MG TAB PO SCH (08:15)
[2020-08-02] MEDS: FOLIC ACID 1 MG TAB PO SCH (08:15)
[2020-08-02] MEDS: VENLAFAXINE HCL XR 150 MG CAPXR PO SCH (08:15)
[2020-08-02] MEDS: carBAMazepine 200 MG TABLET PO SCH ×2 (08:15→19:56)
[2020-08-02] MEDS: CEFTAROLINE FOSAMIL ACETATE 600 MG in SODIUM CHLORIDE 0.9% 250 ML IV SCH ×2 (08:16→21:21)
[2020-08-02] MEDS: HEPARIN SOD 5,000 UNIT/0.5 ML VIAL SQ SCH ×2 (08:16→19:56)
[2020-08-02] MEDS: POLYETHYLENE (MIRALAX) 17 GM PACK PO SCH ×2 (08:35→20:09)
[2020-08-02] MEDS: ACETAMINOPHEN 500 MG TAB PO PRN (13:48)
--- NOTE | 2020-08-02 14:23 | Pharmacy Report ---
Pharmacy Abx Dose Short Note - Date of Service August 02, 2020 - Assessment & Plan Assessment 65 year old M receiving vancomycin for treatment of persistent MRSA bacteremia Day # 11 of antimicrobial therapy. Plan Vancomycin * Trough level of 18.2 mcg/mL is subtherapeutic (adjusted goal range of 20-25 mcg/mL for failed vancomycin therapy) * Change to 2000 mg IV every 24 hours (give 2 hours early) --> patient specific pharmacokinetics suggest a half-life of 23 hours with elimination constant of 0.03 hr-1 .... suspect trough of 22 mcg/mL with this dose. * Goal trough level for prolonged bacteremia : 20 to 25 mcg/mL * Trough to be ordered if vancomycin continued beyond 3 more days Pharmacy will continue to follow and will adjust dose/frequency as necessary. Thank you.
--- NOTE | 2020-08-02 16:01 | Hospitalist Progress Note ---
Date of Service August 02, 2020 Assessment & Plan (1) MRSA bacteremia: In blood cultures on admission. CT chest incidentally showed possible thoracic spine involvement. MRI thoracic spine on 07/22 was limited, but showed "non-specific prevertebral soft tissue edema/swelling adjacent to the large anterior osteophytes at the T8-T9 and T10-11 levels." - Started on daptomycin on 07/22 for positive blood cultures. - Stopped dapto and started vancomycin given CT chest on 07/22 indicated possi ble pneumonia. - Started ceftaroline on 07/28 for continued bacteremia - ID recs from 07/26: Continue IV abx x 4 weeks after cleared blood culture, then likely switch to doxycycline 100 mg PO BID for 4 additional weeks. Follow ESR/CRP weekly. - Discussing with ID today. - Continue vanc + ceftaroline until the sensitivity for ceftaroline returns. If it is sensitive, can stop vancomycin and proceed just with ceftaroline. The continued positivity on vancomycin is considered a treatment failure of vanc. (2) Acute renal failure: Baseline Cr ~1.00 - 1.35, eGFR 60 - 75. - Cr on admission was 4.1 with hyaline and granular casts. This points towards dehydration leading to possible ATN. Likely compounded by chlorthalidone, enalapril, and furosemide. - Hold above medications - Nephrology consulted - Agree with current plan. - IV fluids ran until 07/24. - Cr now 1.7. (3) Anemia: Long-standing macrocytic anemia with recent B12/folate in 02/2020 both normal. Baseline hgb ~12-14. - ED provider was concerned about upper GI bleed given hgb was 9.7 on admission with heme-positive. -> Started on PPI gtt in the ED. - Stable hgb (7.5 on 08/01). No indication of GI bleed. Likely from iron deficiency and anemia of disease. Monitor. (4) HTN (hypertension): Presently BP is 160/80. Was initially hypotensive this admission, due to sepsis. - Will defer BP meds for now - Monitor (5) Chest pain: Present since yesterday's fall. Pain occurs with chest wall palpation. Troponin and EKG normal. Negative stress test in 2018. Likely MSK in nature. - Tylenol PRN - Resolved (6) Seizure disorder: Follows with Vee Mcnulty. - Carbamazepine level was 12.0 on admission (upper range of normal) - Reached out to Dr. Rose on 07/31. Restarted at home dose per her recommendations. (7) Paranoid schizophrenia, chronic condition: No presents issues. - Continue topiramate - Restarted venlafaxine on 07/31 as renal function stable. (8) Depression: - As above with schizophrenia (9) HLD (hyperlipidemia): - Restarted statin on 08/01 (10) DVT prophylaxis: Heparin 7,500 units SQ Q12h (weight-based dosing) Admission and Anticipated Discharge Date Admission Date: July 21, 2020 Subjective Doing well today. No major concerns. Reports no fevers/chills, chest pain, shortness of breath, abdominal pain, nausea, or vomiting. Physical Exam Constitutional: WD/WN, vitals as above Eyes: EOM intact bilaterally; no conjunctival abnormality ENMT: external ear and nose normal, oropharynx normal Neck: trachea midline, no thyromegaly normal visual inspection Respiratory: normal respiratory effort, lungs clear to auscultation no respiratory distress and no labored breathing Auscultation: + crackles Cardiovascular: RRR, no murmur, no edema Gastrointestinal (Abdomen): Inspection/Auscultation: abdomen normal to inspection; abdomen not distended Musculoskeletal: no cyanosis or clubbing, extremities motor strength 5/5 Skin: no rashes, warm and dry no ulcers and no erythema Neurologic: moves all extremities and awake Psychiatric: Orientation: alert, oriented to person and cooperative Results & Data Results & Data ([facility]) Vital Signs (Past 12 Hours) Vital Signs Temp Pulse Resp BP Pulse Ox 08/02/20 15:10 36.8 C 80 18 161/79 H 94 08/02/20 07:45 36.8 C 78 16 135/77 96 PG Care Time/CCT Total # of Minutes Spent Total Time Spent with Patient: Total time spent is greater than 50% in coordination of care (as documented) at patient's floor/unit and/or counseling patient: Coding Level of Care Code 15554 Subseq Hosp Care Lvl 2 Diagnoses MRSA bacteremia R78.81; B95.62 Acute renal failure N17.9 Anemia D64.9 HTN (hypertension) I10 Chest pain R07.9 Seizure disorder G40.909 Paranoid schizophrenia, chronic condition F20.0 Depression F32.9 HLD (hyperlipidemia) E78.5 DVT prophylaxis Z29.9
[2020-08-02] MEDS: VANCOMYCIN HCL 2,000 MG in SODIUM CHLORIDE 0.9% 500 ML IV SCH (17:36)
[2020-08-02] MEDS: SIMVASTATIN 20 MG TAB PO SCH (19:57)
[2020-08-02] MEDS: MAGNESIUM HYDROXIDE SUSP 30 ML UDC PO PRN (20:09)
[2020-08-03] MEDS: LEVOTHYROXINE SODIUM 50 MCG TABLET PO SCH (05:55)
[2020-08-03 06:53] LABS: Hematocrit (blood only) 22.8 % (42-52); Hemoglobin 7.5 g/dL (14.0-18.0); Mean Corpuscular Hemoglobin 35.9 pg (25-34); Mean Corpuscular Hgb Conc 32.9 g/dL (32-36); Mean Corpuscular Volume 109.1 fL (80-100); Mean Platelet Volume 9.1 fL (7.4-10.4); Platelet Count 311 K/uL (130-400); RDW Coefficient of Variation 14.5 % (11.5-14.5); RDW Standard Deviation 57.9 fL (36.4-46.3); Red Blood Count 2.09 M/uL (4.7-6.1); White Blood Count 7.86 K/uL (4.8-10.8)
[2020-08-03 07:18] LABS: BUN Creatinine Ratio 13.4 (10-20); Calcium 8.6 mg/dl (8.5-10.1); Creatinine Clr Calc Pharmacy 63.1 ml/min; Est GFR (African American) 51.2; Est GFR (Non-African American) 44.2; Magnesium 2.2 mg/dl (1.8-2.4); Potassium 4.1 mmol/L (3.5-5.1)
[2020-08-03] MEDS: CEFTAROLINE FOSAMIL ACETATE 600 MG in SODIUM CHLORIDE 0.9% 250 ML IV SCH ×2 (09:23→21:57)
[2020-08-03] MEDS: FOLIC ACID 1 MG TAB PO SCH (09:24)
[2020-08-03] MEDS: METOPROLOL TARTRATE 25 MG TAB PO SCH (09:24)
[2020-08-03] MEDS: POLYETHYLENE (MIRALAX) 17 GM PACK PO SCH ×2 (09:24→20:53)
[2020-08-03] MEDS: VENLAFAXINE HCL XR 150 MG CAPXR PO SCH (09:24)
[2020-08-03] MEDS: carBAMazepine 200 MG TABLET PO SCH ×2 (09:25→20:52)
[2020-08-03] MEDS: TOPIRAMATE 50 MG TAB PO SCH (09:25)
[2020-08-03] MEDS: HEPARIN SOD 5,000 UNIT/0.5 ML VIAL SQ SCH ×2 (09:25→20:43)
--- NOTE | 2020-08-03 15:29 | Hospitalist Progress Note ---
Date of Service August 03, 2020 Assessment & Plan (1) MRSA bacteremia: In blood cultures on admission. CT chest incidentally showed possible thoracic spine involvement. MRI thoracic spine on 07/22 was limited, but showed "non-specific prevertebral soft tissue edema/swelling adjacent to the large anterior osteophytes at the T8-T9 and T10-11 levels." - Started on daptomycin on 07/22 for positive blood cultures. - Stopped dapto and started vancomycin given CT chest on 07/22 indicated possi ble pneumonia. - Started ceftaroline on 07/28 for continued bacteremia - ID recs from 07/26: Continue IV abx x 4 weeks after cleared blood culture, then likely switch to doxycycline 100 mg PO BID for 4 additional weeks. Follow ESR/CRP weekly. - Discussing with ID today. - Continue vanc + ceftaroline until the sensitivity for ceftaroline returns. If it is sensitive, can stop vancomycin and proceed just with ceftaroline. The continued positivity on vancomycin is considered a treatment failure of vanc. - Will place PICC today or tomorrow. (2) Acute renal failure: Baseline Cr ~1.00 - 1.35, eGFR 60 - 75. - Cr on admission was 4.1 with hyaline and granular casts. This points towards dehydration leading to possible ATN. Likely compounded by chlorthalidone, enalapril, and furosemide. - Hold above medications - Nephrology consulted - Agree with current plan. - IV fluids ran until 07/24. - Cr now 1.6. - Also, had urinary retention. Gardner inserted on 07/29. Voiding trial on 08/02 failed, and Gardner re-inserted. Will start tamsulosin as well and can follow up as outpatient with urology. (3) Anemia: Long-standing macrocytic anemia with recent B12/folate in 02/2020 both normal. Baseline hgb ~12-14. - ED provider was concerned about upper GI bleed given hgb was 9.7 on admission with heme-positive. -> Started on PPI gtt in the ED. - Stable hgb (7.5 on 08/01). No indication of GI bleed. Likely from iron deficiency and anemia of disease. Monitor. (4) HTN (hypertension): Presently BP is 170/80. Was initially hypotensive this admission, due to sepsis. - Restarted metoprolol tartrate on 08/03 - Monitor (5) Chest pain: Present since yesterday's fall. Pain occurs with chest wall palpation. Troponin and EKG normal. Negative stress test in 2018. Likely MSK in nature. - Tylenol PRN - Resolved (6) Seizure disorder: Follows with Vee Mcnulty. - Carbamazepine level was 12.0 on admission (upper range of normal) - Reached out to Dr. Rose on 07/31. Restarted at home dose per her recommendations. (7) Paranoid schizophrenia, chronic condition: No presents issues. - Continue topiramate - Restarted venlafaxine on 07/31 as renal function stable. (8) Depression: - As above with schizophrenia (9) HLD (hyperlipidemia): - Restarted statin on 08/01 (10) DVT prophylaxis: Heparin 7,500 units SQ Q12h (weight-based dosing) Admission and Anticipated Discharge Date Admission Date: July 21, 2020 Subjective Doing well today. Some diarrhea overnight. Reports no fevers/chills, chest pain, shortness of breath, abdominal pain, nausea, or vomiting. Physical Exam Constitutional: WD/WN, vitals as above Eyes: EOM intact bilaterally; no conjunctival abnormality ENMT: external ear and nose normal, oropharynx normal Neck: trachea midline, no thyromegaly normal visual inspection Respiratory: normal respiratory effort, lungs clear to auscultation no respiratory distress and no labored breathing Auscultation: no crackles Cardiovascular: RRR, no murmur, no edema Gastrointestinal (Abdomen): Inspection/Auscultation: abdomen normal to inspection; abdomen not distended Musculoskeletal: no cyanosis or clubbing, extremities motor strength 5/5 Skin: no rashes, warm and dry no ulcers and no erythema Neurologic: moves all extremities and awake Psychiatric: Orientation: alert, oriented to person and cooperative Results & Data Results & Data ([facility]) Vital Signs (Past 12 Hours) Vital Signs Temp Pulse Resp BP Pulse Ox 08/03/20 08:00 36.9 C 85 18 170/80 H 92 PG Care Time/CCT Total # of Minutes Spent Total Time Spent with Patient: Total time spent is greater than 50% in coordination of care (as documented) at patient's floor/unit and/or counseling patient: Coding Level of Care Code 98557 Subseq Hosp Care Lvl 2 Diagnoses MRSA bacteremia R78.81; B95.62 Acute renal failure N17.9 Anemia D64.9 HTN (hypertension) I10 Chest pain R07.9 Seizure disorder G40.909 Paranoid schizophrenia, chronic condition F20.0 Depression F32.9 HLD (hyperlipidemia) E78.5 DVT prophylaxis Z29.9
[2020-08-03] MEDS: VANCOMYCIN HCL 2,000 MG in SODIUM CHLORIDE 0.9% 500 ML IV SCH (18:31)
[2020-08-03] MEDS: SIMVASTATIN 20 MG TAB PO SCH (20:52)
[2020-08-03] MEDS: TAMSULOSIN HCL 0.4 MG CAP PO SCH (20:52)
[2020-08-03] MEDS: METOPROLOL TARTRATE 50 MG TAB PO SCH (20:53)
[2020-08-04] MEDS: LEVOTHYROXINE SODIUM 50 MCG TABLET PO SCH (06:08)
[2020-08-04] MEDS: CEFTAROLINE FOSAMIL ACETATE 600 MG in SODIUM CHLORIDE 0.9% 250 ML IV SCH ×2 (09:05→21:25)
[2020-08-04] MEDS: TOPIRAMATE 50 MG TAB PO SCH (09:12)
[2020-08-04] MEDS: POLYETHYLENE (MIRALAX) 17 GM PACK PO SCH ×2 (09:12→21:30)
[2020-08-04] MEDS: carBAMazepine 200 MG TABLET PO SCH ×2 (09:13→21:29)
[2020-08-04] MEDS: VENLAFAXINE HCL XR 150 MG CAPXR PO SCH (09:13)
[2020-08-04] MEDS: METOPROLOL TARTRATE 50 MG TAB PO SCH ×2 (09:14→21:29)
[2020-08-04] MEDS: FOLIC ACID 1 MG TAB PO SCH (09:14)
[2020-08-04] MEDS: HEPARIN SOD 5,000 UNIT/0.5 ML VIAL SQ SCH ×2 (09:15→21:29)
--- NOTE | 2020-08-04 17:21 | Hospitalist Progress Note ---
Date of Service August 04, 2020 Assessment & Plan (1) MRSA bacteremia: In blood cultures on admission. CT chest incidentally showed possible thoracic spine involvement. MRI thoracic spine on 07/22 was limited, but showed "non-specific prevertebral soft tissue edema/swelling adjacent to the large anterior osteophytes at the T8-T9 and T10-11 levels." - Started on daptomycin on 07/22 for positive blood cultures. - Stopped dapto and started vancomycin given CT chest on 07/22 indicated possi ble pneumonia. - Started ceftaroline on 07/28 for continued bacteremia - ID recs from 07/26: Continue IV abx x 4 weeks after cleared blood culture (End date of IV abx: 08/27/2020), then likely switch to doxycycline 100 mg PO BID for 4 additional weeks. Follow CBC/BMP/ESR/CRP weekly. - Discussing with ID on 08/03. - Continue vanc + ceftaroline until the sensitivity for ceftaroline returns. If it is sensitive, can stop vancomycin and proceed just with ceftaroline. The continued positivity on vancomycin is considered a treatment failure of vanc. - Can place PICC. - Of note, the only issue I see is cost of ceftaroline which is nearly $400/day. If we cannot find placement due to ceftaroline, would need to speak with ID re: vanc vs. daptomycin. Dr. Magdaleno had concerns about myopathy with the high-dose, prolonged daptomycin, so I'm reluctant to do that unless it's absolutely necessary. (2) Acute renal failure: Baseline Cr ~1.00 - 1.35, eGFR 60 - 75. - Cr on admission was 4.1 with hyaline and granular casts. This points towards dehydration leading to possible ATN. Likely compounded by chlorthalidone, enalapril, and furosemide. - Hold above medications - Nephrology consulted - Agree with current plan. - IV fluids ran until 07/24. - Cr now 1.6. - Also, had urinary retention. Gardner inserted on 07/29. Voiding trial on 08/02 failed, and Gardner re-inserted. Will start tamsulosin as well and can follow up as outpatient with urology. (3) Anemia: Long-standing macrocytic anemia with recent B12/folate in 02/2020 both normal. Baseline hgb ~12-14. - ED provider was concerned about upper GI bleed given hgb was 9.7 on admission with heme-positive. -> Started on PPI gtt in the ED. - Stable hgb (7.5 on 08/01). No indication of GI bleed. Likely from iron deficiency and anemia of disease. Monitor. (4) HTN (hypertension): Presently BP is 150/80. Was initially hypotensive this admission, due to sepsis. - Restarted metoprolol tartrate on 08/03 -> Better overall. - Monitor (5) Chest pain: Present since yesterday's fall. Pain occurs with chest wall palpation. Troponin and EKG normal. Negative stress test in 2018. Likely MSK in nature. - Tylenol PRN - Resolved (6) Seizure disorder: Follows with Vee Mcnulty. - Carbamazepine level was 12.0 on admission (upper range of normal) - Reached out to Dr. Rose on 07/31. Restarted at home dose per her recommendations. (7) Paranoid schizophrenia, chronic condition: No presents issues. - Continue topiramate - Restarted venlafaxine on 07/31 as renal function stable. (8) Depression: - As above with schizophrenia (9) HLD (hyperlipidemia): - Restarted statin on 08/01 - Would need to stop if restart daptomycin (10) DVT prophylaxis: Heparin 7,500 units SQ Q12h (weight-based dosing) Admission and Anticipated Discharge Date Admission Date: July 21, 2020 Subjective No issues today. Reports no fevers/chills, chest pain, shortness of breath, abdominal pain, nausea, or vomiting. Physical Exam Constitutional: WD/WN, vitals as above Eyes: EOM intact bilaterally; no conjunctival abnormality ENMT: external ear and nose normal, oropharynx normal Neck: trachea midline, no thyromegaly normal visual inspection Respiratory: normal respiratory effort, lungs clear to auscultation no respiratory distress and no labored breathing Auscultation: no crackles Cardiovascular: RRR, no murmur, no edema Gastrointestinal (Abdomen): Inspection/Auscultation: abdomen normal to inspection; abdomen not distended Musculoskeletal: no cyanosis or clubbing, extremities motor strength 5/5 Skin: no rashes, warm and dry no ulcers and no erythema Neurologic: moves all extremities and awake Psychiatric: Orientation: alert, oriented to person and cooperative Results & Data Results & Data ([place]) Vital Signs (Past 12 Hours) Vital Signs Temp Pulse Resp BP Pulse Ox 08/04/20 15:37 37.2 C 83 18 150/80 H 95 08/04/20 07:52 37.3 C 89 18 156/78 H 93 PG Care Time/CCT Total # of Minutes Spent Total Time Spent with Patient: Total time spent is greater than 50% in coordination of care (as documented) at patient's floor/unit and/or counseling patient: Coding Level of Care Code 39588 Subseq Hosp Care Lvl 2 Diagnoses MRSA bacteremia R78.81; B95.62 Acute renal failure N17.9 Anemia D64.9 HTN (hypertension) I10 Chest pain R07.9 Seizure disorder G40.909 Paranoid schizophrenia, chronic condition F20.0 Depression F32.9 HLD (hyperlipidemia) E78.5 DVT prophylaxis Z29.9
[2020-08-04] MEDS: VANCOMYCIN HCL 2,000 MG in SODIUM CHLORIDE 0.9% 500 ML IV SCH (18:09)
[2020-08-04] MEDS: TAMSULOSIN HCL 0.4 MG CAP PO SCH (21:29)
[2020-08-04] MEDS: SIMVASTATIN 20 MG TAB PO SCH (21:29)
[2020-08-05] MEDS: ACETAMINOPHEN 500 MG TAB PO PRN (02:31)
[2020-08-05] MEDS: LEVOTHYROXINE SODIUM 50 MCG TABLET PO SCH (05:51)
[2020-08-05] MEDS: METOPROLOL TARTRATE 50 MG TAB PO SCH ×2 (08:30→21:20)
[2020-08-05] MEDS: FOLIC ACID 1 MG TAB PO SCH (08:30)
[2020-08-05] MEDS: carBAMazepine 200 MG TABLET PO SCH ×2 (08:31→21:20)
[2020-08-05] MEDS: HEPARIN SOD 5,000 UNIT/0.5 ML VIAL SQ SCH ×2 (08:32→21:20)
[2020-08-05] MEDS: CEFTAROLINE FOSAMIL ACETATE 600 MG in SODIUM CHLORIDE 0.9% 250 ML IV SCH ×2 (08:38→21:21)
[2020-08-05] MEDS: POLYETHYLENE (MIRALAX) 17 GM PACK PO SCH ×2 (08:38→21:35)
[2020-08-05] MEDS: TOPIRAMATE 50 MG TAB PO SCH (08:55)
[2020-08-05] MEDS: VENLAFAXINE HCL XR 150 MG CAPXR PO SCH (08:55)
[2020-08-05 09:38] LABS: Hematocrit (blood only) 21.9 % (42-52); Mean Corpuscular Hemoglobin 35.2 pg (25-34); Mean Corpuscular Volume 110.1 fL (80-100); Mean Platelet Volume 8.9 fL (7.4-10.4); Platelet Count 297 K/uL (130-400); RDW Coefficient of Variation 14.9 % (11.5-14.5); RDW Standard Deviation 59.5 fL (36.4-46.3); Red Blood Count 1.99 M/uL (4.7-6.1)
[2020-08-05 10:14] LABS: BUN Creatinine Ratio 11.3 (10-20); Calcium 8.4 mg/dl (8.5-10.1); Creatinine Clr Calc Pharmacy 56.8 ml/min; Est GFR (African American) 45.1; Est GFR (Non-African American) 38.9; Potassium 3.7 mmol/L (3.5-5.1)
[2020-08-05 10:17] LABS: Albumin Globulin Ratio 0.4 (0.9-2); Bilirubin,Total 0.4 mg/dl (0.2-1); Globulin 4.6 gm/dl (2.5-4.0); Total Protein 6.6 gm/dl (6.4-8.2)
--- NOTE | 2020-08-05 11:18 | Hospitalist Progress Note ---
Date of Service August 05, 2020 Assessment & Plan (1) MRSA bacteremia: In blood cultures on admission. CT chest incidentally showed possible thoracic spine involvement. MRI thoracic spine on 07/22 was limited, but showed "non-specific prevertebral soft tissue edema/swelling adjacent to the large anterior osteophytes at the T8-T9 and T10-11 levels." - Started on daptomycin on 07/22 for positive blood cultures. - Stopped dapto and started vancomycin given CT chest on 07/22 indicated possi ble pneumonia. - Started ceftaroline on 07/28 for continued bacteremia - ID recs from 07/26: Continue IV abx x 4 weeks after cleared blood culture (End date of IV abx: 08/27/2020), then likely switch to doxycycline 100 mg PO BID for 4 additional weeks. Follow CBC/BMP/ESR/CRP weekly. - Discussing with ID on 08/03. - Continue vanc + ceftaroline until the sensitivity for ceftaroline returns. If it is sensitive, can stop vancomycin and proceed just with ceftaroline. The continued positivity on vancomycin is considered a treatment failure of vanc. - Can place PICC. - Of note, the only issue I see is cost of ceftaroline which is nearly $400/day. If we cannot find placement due to ceftaroline, would need to speak with ID re: vanc vs. daptomycin. Dr. Magdaleno had concerns about myopathy with the high-dose, prolonged daptomycin, so I'm reluctant to do that unless it's absolutely necessary. -Vanco does not appear to be an option due to fact that patient did not clear out bacteremia with this, and required ceftaroline. (2) Acute renal failure: Baseline Cr ~1.00 - 1.35, eGFR 60 - 75. - Cr on admission was 4.1 with hyaline and granular casts. This points towards dehydration leading to possible ATN. Likely compounded by chlorthalidone, enalapril, and furosemide. - Hold above medications - Nephrology consulted - Agree with current plan. - IV fluids ran until 07/24. - Cr now 1.6. - Also, had urinary retention. Gardner inserted on 07/29. Voiding trial on 08/02 failed, and Gardner re-inserted. Will start tamsulosin as well and can follow up as outpatient with urology. (3) Anemia: Long-standing macrocytic anemia with recent B12/folate in 02/2020 both normal. Baseline hgb ~12-14. - ED provider was concerned about upper GI bleed given hgb was 9.7 on admission with heme-positive. -> Started on PPI gtt in the ED. - Stable hgb (7.5 on 08/01). No indication of GI bleed. Likely from iron deficiency and anemia of disease. Monitor. (4) HTN (hypertension): Presently BP is 150/80. Was initially hypotensive this admission, due to sepsis. - Restarted metoprolol tartrate on 08/03 -> Better overall. - Monitor (5) Chest pain: Present since yesterday's fall. Pain occurs with chest wall palpation. Troponin and EKG normal. Negative stress test in 2018. Likely MSK in nature. - Tylenol PRN - Resolved (6) Seizure disorder: Follows with Vee Mcnulty. - Carbamazepine level was 12.0 on admission (upper range of normal) - Reached out to Dr. Rose on 07/31. Restarted at home dose per her recommendations. (7) Paranoid schizophrenia, chronic condition: No presents issues. - Continue topiramate - Restarted venlafaxine on 07/31 as renal function stable. (8) Depression: - As above with schizophrenia (9) HLD (hyperlipidemia): - Restarted statin on 08/01 - Would need to stop if restart daptomycin (10) DVT prophylaxis: Heparin 7,500 units SQ Q12h (weight-based dosing) Admission and Anticipated Discharge Date Admission Date: July 21, 2020 Subjective Patient reports feeling well and has no new complaints. Review of Systems Review of Systems: All systems reviewed & are unremarkable except as noted in HPI & below Physical Exam Physical Exam: Constitutional: WD/WN, vitals as above Eyes: EOM intact bilaterally; no conjunctival abnormality ENMT: external ear and nose normal, oropharynx normal Neck: trachea midline, no thyromegaly normal visual inspection Respiratory: normal respiratory effort, lungs clear to auscultation no respiratory distress and no labored breathing Auscultation: no crackles Cardiovascular: RRR, no murmur, no edema Gastrointestinal (Abdomen): Inspection/Auscultation: abdomen normal to inspection; abdomen not distended Musculoskeletal: no cyanosis or clubbing, extremities motor strength 5/5 Skin: no rashes, warm and dry no ulcers and no erythema Neurologic: moves all extremities and awake Psychiatric: Orientation: alert, oriented to person and cooperative Results & Data Results & Data ([facility]) Vital Signs (Past 12 Hours) Vital Signs Temp Pulse Resp BP Pulse Ox 08/05/20 07:43 36.8 C 81 18 142/75 H 93 08/04/20 23:30 37.5 C 75 20 126/71 91 PG Care Time/CCT Total # of Minutes Spent Total Time Spent with Patient: Total time spent is greater than 50% in coordination of care (as documented) at patient's floor/unit and/or counseling patient: Coding Level of Care Code 04365 Subseq Hosp Care Lvl 3 Diagnoses MRSA bacteremia R78.81; B95.62 Acute renal failure N17.9 Anemia D64.9 HTN (hypertension) I10 Chest pain R07.9 Seizure disorder G40.909 Paranoid schizophrenia, chronic condition F20.0 Depression F32.9 HLD (hyperlipidemia) E78.5 DVT prophylaxis Z29.9 Time Spent (min) 35
[2020-08-05] MEDS ORDERED: VANCOMYCIN TROUGH ONE (17:30)
[2020-08-05] MEDS: VANCOMYCIN HCL 2,000 MG in SODIUM CHLORIDE 0.9% 500 ML IV SCH (18:23)
[2020-08-05] MEDS: TAMSULOSIN HCL 0.4 MG CAP PO SCH (21:19)
[2020-08-05] MEDS: SIMVASTATIN 20 MG TAB PO SCH (21:21)
[2020-08-06] MEDS: LEVOTHYROXINE SODIUM 50 MCG TABLET PO SCH (05:49)
[2020-08-06 08:01] LABS: Hematocrit (blood only) 20.1 % (42-52); Hemoglobin 6.6 g/dL (14.0-18.0); Mean Corpuscular Hemoglobin 35.3 pg (25-34); Mean Corpuscular Hgb Conc 32.8 g/dL (32-36); Mean Corpuscular Volume 107.5 fL (80-100); Mean Platelet Volume 8.5 fL (7.4-10.4); Platelet Count 274 K/uL (130-400); RDW Coefficient of Variation 14.9 % (11.5-14.5); RDW Standard Deviation 58.5 fL (36.4-46.3); Red Blood Count 1.87 M/uL (4.7-6.1); White Blood Count 6.44 K/uL (4.8-10.8)
[2020-08-06 08:24] LABS: BUN Creatinine Ratio 10.4 (10-20); Calcium 8.7 mg/dl (8.5-10.1); Est GFR (African American) 46.3; Potassium 3.8 mmol/L (3.5-5.1)
[2020-08-06 08:25] LABS: Basophils # (auto) 0.04 K/uL (0-0.2); Basophils % (auto) 0.6 %; Eosinophils # (auto) 0.07 K/uL (0-0.5); Eosinophils % (auto) 1.1 %; Immature Granulocytes # (auto) 0.06 K/uL (0.00-0.02); Immature Granulocytes % (auto) 0.9 %; Lymphocytes # (auto) 0.47 K/uL (1.2-3.4); Lymphocytes % (auto) 7.3 %; Monocytes # (auto) 0.57 K/uL (0.11-0.59); Monocytes % (auto) 8.9 %; Neutrophils # (auto) 5.23 K/uL (1.4-6.5); Neutrophils % (auto) 81.2 %; RBC Morphology Unremarkable
--- NOTE | 2020-08-06 08:53 | Pharmacy Report ---
Pharmacy Abx Dose Short Note - Date of Service August 06, 2020 - Assessment & Plan Assessment 65 year old M receiving Vancomycin + Ceftaroline for treatment of persistent MRSA bacteremia * Day #16 of antimicrobial therapy * Treating for 4 weeks from first set of negative blood cultures (07/31/20 - 08/28/20) * Renal fxn stable Plan Vancomycin * Trough level of 23.5 mcg/mL is therapeutic (see goal range below) * Continue dose of 2000 mg IV every 24 hours * Goal trough level for persistent MRSA bacteremia: 20 to 25 mcg/mL * Trough level ordered for: 08/08/20 to ensure patient is not accumulating drug and becomes supratherapeutic Ceftaroline * Continue 600 mg IV every 12 hours Pharmacy will continue to follow and will adjust dose/frequency as necessary. Thank you.
[2020-08-06] MEDS: CEFTAROLINE FOSAMIL ACETATE 600 MG in SODIUM CHLORIDE 0.9% 250 ML IV SCH ×2 (09:56→22:33)
[2020-08-06] MEDS: HEPARIN SOD 5,000 UNIT/0.5 ML VIAL SQ SCH ×2 (10:00→20:37)
[2020-08-06] MEDS: TOPIRAMATE 50 MG TAB PO SCH (10:03)
[2020-08-06] MEDS: METOPROLOL TARTRATE 50 MG TAB PO SCH ×2 (10:03→20:35)
[2020-08-06] MEDS: VENLAFAXINE HCL XR 150 MG CAPXR PO SCH (10:04)
[2020-08-06] MEDS: FOLIC ACID 1 MG TAB PO SCH (10:04)
[2020-08-06] MEDS: carBAMazepine 200 MG TABLET PO SCH ×2 (10:04→20:38)
[2020-08-06] MEDS: POLYETHYLENE (MIRALAX) 17 GM PACK PO SCH ×2 (10:05→20:37)
[2020-08-06] MEDS ORDERED: SODIUM CHLORIDE 0.9% 250 ML IV PRN (10:50)
--- NOTE | 2020-08-06 11:24 | Gastrointestinal Consultation ---
Date of Consultation August 06, 2020 History of Present Illness Reason for Consultation: Mr. Renard He is a 65 yr old male pt of Attending Physician: Toby Bertrand Allergies Allergy/AdvReac Type Severity Reaction Status Date / Time loxapine AdvReac Mild restless Verified 07/22/20 16:46 and nervous morphine AdvReac Mild nausea/vomi Verified 07/22/20 16:46 ting Home Medications Medication Instructions Recorded Confirmed Type cholecalciferol (vitamin D3) 2,000 unit PO QAM 01/13/19 07/21/20 History [Vitamin D3] levothyroxine 50 mcg PO QAM 01/13/19 07/21/20 History wyxzllljrdqr-bixtorgh-mazsrg 1 tab PO QAM 01/13/19 07/21/20 History [Multivitamin 50 Plus] simvastatin 20 mg PO HS 01/13/19 07/21/20 History venlafaxine 150 mg PO QAM 01/13/19 07/21/20 History chlorthalidone 25 mg PO DAILY 07/21/20 07/21/20 History enalapril maleate 20 mg PO BID 07/21/20 07/21/20 History folic acid 1 mg PO DAILY 07/21/20 07/21/20 History furosemide 20 mg PO BID 07/21/20 07/21/20 History metoprolol tartrate 100 mg PO BID 07/21/20 07/21/20 History topiramate 50 mg PO DAILY 07/21/20 07/21/20 History carbamazepine [Tegretol] 600 mg PO BID 07/31/20 07/31/20 History Patient History Medical History (Updated 07/25/20 @ 17:19 by Galdino Martinez MD) OCTAVIO (acute kidney injury) Anemia Anxiety Depression GERD (gastroesophageal reflux disease) Hyperlipidemia Hypertension Hypothyroidism MRSA bacteremia Obesity Osteoarthritis of hip Paranoid schizophrenia, chronic condition Seizure disorder last was 2002--on tegretol, follows with Dr. Vee Mcnulty Vitamin D deficiency Surgical History History of appendectomy History of cholecystectomy History of colonoscopy History of umbilical hernia repair History of wisdom tooth extraction Family History Father Family history of diabetes mellitus Mother Family history of diabetes mellitus Brother Family history of diabetes mellitus Other No family history of adverse response to anesthesia Social History Smoking Status: Never smoker Second Hand Exposure: Yes (mom smoked); Hx Alcohol Use: Yes Alcohol type: other Hx Substance Use: No Preferred Language: [place] Communication Ability: Effective Assembly Associate Required: No Beliefs That Will Affect Care: None marital status: Single Current Living Situation: Alone How many Children do You have: 0 Other Information That Helps Us Care for You: No Feels Safe at Home: Yes Safety Concerns: Feels Safe At This Time Assistive Devices: Brace/Splint/Immobilizer and Glasses Results & Data ([facility]) Vital Signs (Past 12 Hours) Vital Signs Temp Pulse Resp BP BP Pulse Ox 08/06/20 07:22 36.8 C 81 20 162/76 H 94 08/05/20 23:39 37.4 C 78 20 136/74 92
--- NOTE | 2020-08-06 12:17 | Gastrointestinal Consultation ---
Date of Consultation August 06, 2020 Assessment & Plan (1) Symptomatic anemia: DDx: PUD vs AVM vs diverticular vs mass vs other. 1. Clear liquid diet today. 2. Update COVID-19 testing as >1 week since last test. 3. Golytely bowel preparation and NPO after completion. 4. EGD/colonoscopy with Dr. Olivares tomorrow. 5. Trend H&H and transfuse <7. 6. Additional recommendations pending results of testing. Thank you for allowing us to participate in the care of this pleasant patient. If you have any questions or concerns, please do not hesitate to contact us. Supervising Physician Co-Signing Physician Notes I personally evaluated the patient and agree with the findings as documented by CHIKA Ray Exam: abd: soft, nt, nd History of Present Illness Reason for Consultation: Symptomatic anemia, requiring tranfusion Requesting Physician: Dr. Bertrand Attending Physician: Toby Bertrand History of Present Illness Patient is a 65 y.o male admitted with generalized weakness and anemia. Since his admission, he has had a significant decline in his H&H despite a prior blood transfusion. He is planned for another blood transfusion today after H&H of 6.6/20.1% this morning. He denies any overt GIB symptoms but does endorse dizziness, weakness, fatigue and REESE. No chest pains. +mild bilateral lower abdominal pain. No diarrhea, constipation or increased stool frequency. Denies any outpatient ibuprofen use but does use a low dose aspirin daily. No anticoagulants. Last colonoscopy was performed in 2006. No family history of GI malignancy. Allergies Allergy/AdvReac Type Severity Reaction Status Date / Time loxapine AdvReac Mild restless Verified 07/22/20 16:46 and nervous morphine AdvReac Mild nausea/vomi Verified 07/22/20 16:46 ting Home Medications Medication Instructions Recorded Confirmed Type cholecalciferol (vitamin D3) 2,000 unit PO QAM 01/13/19 07/21/20 History [Vitamin D3] levothyroxine 50 mcg PO QAM 01/13/19 07/21/20 History wwnglsqdnirv-hokufzaj-rzfyvp 1 tab PO QAM 01/13/19 07/21/20 History [Multivitamin 50 Plus] simvastatin 20 mg PO HS 01/13/19 07/21/20 History venlafaxine 150 mg PO QAM 01/13/19 07/21/20 History chlorthalidone 25 mg PO DAILY 07/21/20 07/21/20 History enalapril maleate 20 mg PO BID 07/21/20 07/21/20 History folic acid 1 mg PO DAILY 07/21/20 07/21/20 History furosemide 20 mg PO BID 07/21/20 07/21/20 History metoprolol tartrate 100 mg PO BID 07/21/20 07/21/20 History topiramate 50 mg PO DAILY 07/21/20 07/21/20 History carbamazepine [Tegretol] 600 mg PO BID 07/31/20 07/31/20 History Patient History Medical History OCTAVIO (acute kidney injury) Anemia Anxiety Depression GERD (gastroesophageal reflux disease) Hyperlipidemia Hypertension Hypothyroidism MRSA bacteremia Obesity Osteoarthritis of hip Paranoid schizophrenia, chronic condition Seizure disorder last was 2002--on tegretol, follows with Dr. Vee Mcnulty Vitamin D deficiency Surgical History History of appendectomy History of cholecystectomy History of colonoscopy History of umbilical hernia repair History of wisdom tooth extraction Family History Father Family history of diabetes mellitus Mother Family history of diabetes mellitus Brother Family history of diabetes mellitus Other No family history of adverse response to anesthesia Social History Smoking Status: Never smoker Second Hand Exposure: Yes (mom smoked); Hx Alcohol Use: Yes Alcohol type: other Hx Substance Use: No Preferred Language: German Communication Ability: Effective Technician Biological Health Required: No Beliefs That Will Affect Care: None marital status: Single Current Living Situation: Alone How many Children do You have: 0 Other Information That Helps Us Care for You: No Feels Safe at Home: Yes Safety Concerns: Feels Safe At This Time Assistive Devices: Brace/Splint/Immobilizer and Glasses Review of Systems Constitutional: as per Subjective / HPI Cardiovascular: as per Subjective / HPI Gastrointestinal: as per Subjective / HPI Neurologic: as per Subjective / HPI Physical Exam Constitutional: WD/WN, vitals as above well developed and well nourished Eyes: EOM intact bilaterally Neck: normal visual inspection Respiratory: normal respiratory effort, lungs clear to auscultation Cardiovascular: Rate/Rhythm: regular rate and regular rhythm Gastrointestinal (Abdomen): Inspection/Auscultation: normal bowel sounds Percussion/Palpation: + abdomen tender (bilateral lower quadrants) and abdomen soft Psychiatric: A+Ox3, euthymic affect Results & Data ([facility]) Vital Signs (Past 12 Hours) Vital Signs Temp Pulse Resp BP Pulse Ox 08/06/20 07:22 36.8 C 81 20 162/76 H 94 Laboratory Results Abnormal lab results 08/06/20 08/06/20 08/06/20 Range/Units 07:40 07:40 11:07 RBC 1.87 L (4.7-6.1) M/uL Hgb 6.6 L* (14.0-18.0) g/dL Hct 20.1 L* (42-52) % MCV 107.5 H (80-100) fL MCH 35.3 H (25-34) pg RDW Std Deviation 58.5 H (36.4-46.3) fL RDW Coeff of Peng 14.9 H (11.5-14.5) % Lymph # (Auto) 0.47 L (1.2-3.4) K/uL Immature Gran # (Auto) 0.06 H (0.00-0.02) K/uL Chloride 110 H (98-107) mmol/L Creatinine 1.76 H (0.6-1.4) mg/dl Crossmatch See Detail PG Care Time/CCT Total # of Minutes Spent Total Time Spent with Patient: Total time spent is greater than 50% in coordination of care (as documented) at patient's floor/unit and/or counseling patient: Coding Level of Care Code 73829 Initial Inpt Care Lvl 3 Diagnoses Symptomatic anemia D64.9
[2020-08-06 17:27] LABS: Influenza A virus by PCR Negative (Neg); Influenza B virus by PCR Negative (Neg); RSV by PCR Negative (Neg); SARS CoV2 RNA(COVID-19) InHosp NEGATIVE (Negative)
[2020-08-06] MEDS: LAVAGE SOLUTION 4000ML PO SCH (17:51)
[2020-08-06] MEDS: VANCOMYCIN HCL 2,000 MG in SODIUM CHLORIDE 0.9% 500 ML IV SCH (19:47)
[2020-08-06] MEDS: TAMSULOSIN HCL 0.4 MG CAP PO SCH (20:36)
[2020-08-06] MEDS: SIMVASTATIN 20 MG TAB PO SCH (20:38)
--- NOTE | 2020-08-06 20:59 | Hospitalist Progress Note ---
Date of Service August 06, 2020 Assessment & Plan (1) MRSA bacteremia: In blood cultures on admission. CT chest incidentally showed possible thoracic spine involvement. MRI thoracic spine on 07/22 was limited, but showed "non-specific prevertebral soft tissue edema/swelling adjacent to the large anterior osteophytes at the T8-T9 and T10-11 levels." - Started on daptomycin on 07/22 for positive blood cultures. - Stopped dapto and started vancomycin given CT chest on 07/22 indicated possi ble pneumonia. - Started ceftaroline on 07/28 for continued bacteremia - ID recs from 07/26: Continue IV abx x 4 weeks after cleared blood culture (End date of IV abx: 08/27/2020), then likely switch to doxycycline 100 mg PO BID for 4 additional weeks. Follow CBC/BMP/ESR/CRP weekly. - Discussing with ID on 08/03. - Continue vanc + ceftaroline until the sensitivity for ceftaroline returns. If it is sensitive, can stop vancomycin and proceed just with ceftaroline. The continued positivity on vancomycin is considered a treatment failure of vanc. - Can place PICC. Discharge held due to anemia/ EGD work up. - Of note, cost of ceftaroline which is nearly $400/day. If we cannot find placement due to ceftaroline, would need to speak with ID re: vanc vs. daptomycin. Dr. Magdaleno had concerns about myopathy with the high-dose, prolonged daptomycin. -Vanco does not appear to be an option due to fact that patient did not clear out bacteremia with this, and required ceftaroline. (2) Acute renal failure: Baseline Cr ~1.00 - 1.35, eGFR 60 - 75. - Cr on admission was 4.1 with hyaline and granular casts. This points towards dehydration leading to possible ATN. Likely compounded by chlorthalidone, enalapril, and furosemide. - Hold above medications - Nephrology consulted - Agree with current plan. - IV fluids ran until 07/24. - Cr now 1.76. - Also, had urinary retention. Gardner inserted on 07/29. Voiding trial on 08/02 failed, and Gardner re-inserted. Will continue tamsulosin as well and can follow up as outpatient with urology. (3) Anemia: Long-standing macrocytic anemia with recent B12/folate in 02/2020 both normal. Baseline hgb ~12-14. - ED provider was concerned about upper GI bleed given hgb was 9.7 on admission with heme-positive. -> Started on PPI gtt in the ED. - Stable hgb (7.5 on 08/01). No indication of GI bleed. Likely from iron deficiency and anemia of disease. Monitor. (4) HTN (hypertension): Presently BP is 150/80. Was initially hypotensive this admission, due to sepsis. - Restarted metoprolol tartrate on 08/03 -> Better overall. - Monitor (5) Chest pain: Present since yesterday's fall. Pain occurs with chest wall palpation. Troponin and EKG normal. Negative stress test in 2018. Likely MSK in nature. - Tylenol PRN - Resolved (6) Seizure disorder: Follows with Vee Mcnulty. - Carbamazepine level was 12.0 on admission (upper range of normal) - Reached out to Dr. Rose on 07/31. Restarted at home dose per her recommendations. (7) Paranoid schizophrenia, chronic condition: No presents issues. - Continue topiramate - Restarted venlafaxine on 07/31 as renal function stable. (8) Depression: - As above with schizophrenia (9) HLD (hyperlipidemia): - Restarted statin on 08/01 - Would need to stop if restart daptomycin (10) DVT prophylaxis: Heparin 7,500 units SQ Q12h (weight-based dosing) Admission and Anticipated Discharge Date Admission Date: July 21, 2020 Subjective Patient reports feeling fatigued today and SOB at rest. Review of Systems Review of Systems: All systems reviewed & are unremarkable except as noted in HPI & below Physical Exam Physical Exam: Constitutional: WD/WN, vitals as above Eyes: EOM intact bilaterally; no conjunctival abnormality ENMT: external ear and nose normal, oropharynx normal Neck: trachea midline, no thyromegaly normal visual inspection Respiratory: normal respiratory effort, lungs clear to auscultation no respiratory distress and no labored breathing Auscultation: no crackles Cardiovascular: RRR, no murmur, no edema Gastrointestinal (Abdomen): Inspection/Auscultation: abdomen normal to inspect ion; abdomen not distended Musculoskeletal: no cyanosis or clubbing, extremities motor strength 5/5 Skin: no rashes, warm and dry no ulcers and no erythema Neurologic: moves all extremities and awake Psychiatric: Orientation: alert, oriented to person and cooperative Results & Data Results & Data ([facility]) Vital Signs (Past 12 Hours) Vital Signs Temp Pulse Pulse Resp BP BP Pulse Ox 08/06/20 20:30 86 168/87 H 08/06/20 19:18 37.4 C 82 18 169/84 H 96 08/06/20 18:45 37.7 C H 83 18 166/92 H 97 08/06/20 17:45 37.5 C 89 18 159/92 H 96 08/06/20 16:48 36.8 C 76 20 154/82 H 96 08/06/20 16:45 36.8 C 78 20 157/84 H 95 08/06/20 16:26 37.4 C 78 20 152/82 H 08/06/20 16:17 37.5 C 78 20 158/85 H 08/06/20 15:30 37.3 C 80 18 156/88 H 95 08/06/20 14:30 37.4 C 85 18 150/75 H 94 08/06/20 13:30 37.2 C 79 18 144/78 H 96 08/06/20 13:00 37.3 C 75 18 135/80 93 08/06/20 12:45 37.3 C 71 18 134/76 94 08/06/20 12:28 36.9 C 71 18 126/75 94 PG Care Time/CCT Total # of Minutes Spent Total Time Spent with Patient: Total time spent is greater than 50% in coordination of care (as documented) at patient's floor/unit and/or counseling patient: Coding Level of Care Code 29098 Subseq Hosp Care Lvl 3 Diagnoses MRSA bacteremia R78.81; B95.62 Acute renal failure N17.9 Anemia D64.9 HTN (hypertension) I10 Chest pain R07.9 Seizure disorder G40.909 Paranoid schizophrenia, chronic condition F20.0 Depression F32.9 HLD (hyperlipidemia) E78.5 DVT prophylaxis Z29.9 Time Spent (min) 35
[2020-08-06] MEDS: ACETAMINOPHEN 500 MG TAB PO PRN (21:55)
[2020-08-07] MEDS: LAVAGE SOLUTION 4000ML PO SCH (04:19)
[2020-08-07] MEDS: LEVOTHYROXINE SODIUM 50 MCG TABLET PO SCH (05:29)
[2020-08-07 06:07] LABS: Basophils # (auto) 0.05 K/uL (0-0.2); Basophils % (auto) 0.7 %; Eosinophils # (auto) 0.05 K/uL (0-0.5); Eosinophils % (auto) 0.7 %; Hematocrit (blood only) 24.3 % (42-52); Immature Granulocytes # (auto) 0.11 K/uL (0.00-0.02); Immature Granulocytes % (auto) 1.5 %; Lymphocytes # (auto) 0.41 K/uL (1.2-3.4); Lymphocytes % (auto) 5.7 %; Mean Corpuscular Hgb Conc 32.9 g/dL (32-36); Mean Corpuscular Volume 103.4 fL (80-100); Mean Platelet Volume 9.2 fL (7.4-10.4); Monocytes % (auto) 11.2 %; Neutrophils # (auto) 5.74 K/uL (1.4-6.5); Neutrophils % (auto) 80.2 %; Platelet Count 300 K/uL (130-400); RDW Coefficient of Variation 17.7 % (11.5-14.5); Red Blood Count 2.35 M/uL (4.7-6.1); White Blood Count 7.16 K/uL (4.8-10.8)
[2020-08-07 06:34] LABS: BUN Creatinine Ratio 10.5 (10-20); Calcium 8.4 mg/dl (8.5-10.1); Creatinine Clr Calc Pharmacy 61.9 ml/min; Est GFR (African American) 50.1; Est GFR (Non-African American) 43.2
--- NOTE | 2020-08-07 08:21 | History & Physical Bridge Note ---
Date of Service August 07, 2020 History & Physical Bridge Note I have examined the patient, reviewed the History & Physical and in the interval since the performance of the History & Physical I have noted the following changes of clinical significance: no changes noted Proceed with EGD. proceed with colonoscopy. risks/benefits and procedure discussed with patient, who agrees to proceed
[2020-08-07] MEDS: CEFTAROLINE FOSAMIL ACETATE 600 MG in SODIUM CHLORIDE 0.9% 250 ML IV SCH ×2 (08:34→20:01)
[2020-08-07] MEDS: POLYETHYLENE (MIRALAX) 17 GM PACK PO SCH ×2 (08:38→20:02)
[2020-08-07] MEDS: HEPARIN SOD 5,000 UNIT/0.5 ML VIAL SQ SCH ×2 (08:38→20:02)
[2020-08-07] MEDS: VENLAFAXINE HCL XR 150 MG CAPXR PO SCH (08:38)
[2020-08-07] MEDS: carBAMazepine 200 MG TABLET PO SCH ×2 (08:38→20:01)
[2020-08-07] MEDS: FOLIC ACID 1 MG TAB PO SCH (08:38)
[2020-08-07] MEDS: METOPROLOL TARTRATE 50 MG TAB PO SCH ×2 (08:38→20:01)
[2020-08-07] MEDS: TOPIRAMATE 50 MG TAB PO SCH (08:38)
[2020-08-07] MEDS ORDERED: PROPOFOL IV EMULSION 10 MG/ML 20 ML VIAL IV ONE (10:08)
[2020-08-07] MEDS ORDERED: MIDAZOLAM HCL 1 MG/ML 2ML VIAL ONE (10:08)
[2020-08-07] MEDS ORDERED: ONDANSETRON INJ 2 MG/ML 2 ML VIAL ONE (10:08)
[2020-08-07] MEDS ORDERED: LIDOCAINE HCL 2% 2 ML VIAL/AMP(20MG/ML) INFIL ONE (10:08)
--- NOTE | 2020-08-07 11:19 | Anesthesiology Consultation ---
Date of Service August 07, 2020 Covid 19 negative on 08/06/20. Assessment & Plan (1) Encounter for pre-operative examination: Chart Review Chart Review: Acceptable Risk for Surgery and Patient NOT seen in Pre Admission Testing Consults Requested none History Surgery Operation Date: 07/26/20 11:30 Proposed Procedures p Echo Transesophageal - Oscar Lechuga MD Operation Date: 08/07/20 16:00 Proposed Procedures p Colonoscopy EGD Dr. Olivares - Junito Olivares MD Height/Weight Height: 5 ft 11 in Weight: 129 kg Allergies Allergy/AdvReac Type Severity Reaction Status Date / Time loxapine AdvReac Mild restless Verified 07/22/20 16:46 and nervous morphine AdvReac Mild nausea/vomi Verified 07/22/20 16:46 ting Medications Home Medications Medication Instructions Recorded Confirmed Last Taken cholecalciferol (vitamin D3) 2,000 unit PO QAM 01/13/19 07/21/20 07/21/20 [Vitamin D3] levothyroxine 50 mcg PO QAM 01/13/19 07/21/20 07/21/20 [id number]-dhpuqzfg-gwwram 1 tab PO QAM 01/13/19 07/21/20 07/21/20 [Multivitamin 50 Plus] simvastatin 20 mg PO HS 01/13/19 07/21/20 07/20/20 venlafaxine 150 mg PO QAM 01/13/19 07/21/20 07/21/20 chlorthalidone 25 mg PO DAILY 07/21/20 07/21/20 07/21/20 enalapril maleate 20 mg PO BID 07/21/20 07/21/20 07/21/20 folic acid 1 mg PO DAILY 07/21/20 07/21/20 07/21/20 furosemide 20 mg PO BID 07/21/20 07/21/20 07/21/20 metoprolol tartrate 100 mg PO BID 07/21/20 07/21/20 07/21/20 topiramate 50 mg PO DAILY 07/21/20 07/21/20 07/21/20 carbamazepine [Tegretol] 600 mg PO BID 07/31/20 07/31/20 Unknown Active Medications Generic Name Dose Route Start Last Admin Trade Name Freq PRN Reason Stop Dose Admin Acetaminophen 1,000 mg 07/21/20 23:06 08/06/20 21:55 Acetaminophen 500 Mg Tab PO 08/20/20 23:05 1,000 mg Q8H PRN Administration Fever Albuterol 3 ml 07/25/20 03:11 07/29/20 23:27 Albut/Ipratrop 3mg/0.5mg Neb 3 Ml Vial NEB 08/24/20 06:59 3 ml Q4R PRN Administration wheezing Carbamazepine 600 mg 07/31/20 21:00 08/07/20 08:38 Carbamazepine 200 Mg Tablet PO 08/30/20 20:59 600 mg BID KAYODE Administration Folic Acid 1 mg 07/22/20 09:00 08/07/20 08:38 Folic Acid 1 Mg Tab PO 08/21/20 08:59 1 mg DAILY KAYODE Administration Heparin Sodium (Porcine) 7,500 units 07/25/20 21:00 08/07/20 08:38 Heparin Sod 5,000 Unit/0.5 Ml Vial SQ 08/24/20 20:59 7,500 units Q12H KAYODE Administration Ceftaroline Fosamil 600 mg/ 270 mls @ 250 mls/hr 07/28/20 10:30 08/07/20 09:39 Sodium Chloride IV 08/11/20 10:29 Infused Q12 KAYODE Infusion Protocol Vancomycin HCl 2,000 mg/ 540 mls @ 200 mls/hr 08/02/20 18:00 08/06/20 22:34 Sodium Chloride IV 08/16/20 17:59 Infused Q24H KAYODE Infusion Levothyroxine Sodium 50 mcg 07/22/20 06:30 08/07/20 05:29 Levothyroxine Sodium 50 Mcg Tablet PO 08/21/20 06:29 50 mcg DAILYBB KAYODE Administration Magnesium Hydroxide 30 ml 07/31/20 13:33 08/02/20 20:09 Magnesium Hydroxide Susp 30 Ml Udc PO 08/30/20 13:32 30 ml DAILY PRN Administration Constipation Metoprolol Tartrate 50 mg 08/03/20 21:00 08/07/20 08:38 Metoprolol Tartrate 50 Mg Tab PO 09/02/20 20:59 50 mg BID KAYODE Administration Ondansetron HCl 4 mg 07/21/20 14:07 08/01/20 07:30 Ondansetron Inj 2 Mg/Ml 2 Ml Vial IV 08/20/20 14:06 4 mg Q4H PRN Administration Nausea Polyethylene Glycol 17 gm 07/25/20 09:00 08/07/20 08:38 Polyethylene (Miralax) 17 Gm Pack PO 08/24/20 08:59 17 gm BID KAYODE Administration Simvastatin 20 mg 08/01/20 21:00 08/06/20 20:38 Simvastatin 20 Mg Tab PO 08/31/20 20:59 20 mg PM KAYODE Administration Tamsulosin HCl 0.4 mg 08/03/20 21:00 08/06/20 20:36 Tamsulosin Hcl 0.4 Mg Cap PO 09/02/20 20:59 0.4 mg HS KAYODE Administration Topiramate 50 mg 07/22/20 09:00 08/07/20 08:38 Topiramate 50 Mg Tab PO 08/21/20 08:59 50 mg DAILY KAYODE Administration Venlafaxine HCl 150 mg 08/01/20 09:00 08/07/20 08:38 Venlafaxine Hcl Xr 150 Mg Capxr PO 08/31/20 08:59 150 mg QAM KAYODE Administration NPO Date Last Intake of Fluids: 08/07/20 Time Last Intake of Fluids: 09:00 Last Intake of Fluids Comment: prep Date Last Intake of Solids: 08/06/20 Time Last Intake of Solids: 08:00 Past Medical History Medical History OCTAVIO (acute kidney injury) Anemia Anxiety Depression GERD (gastroesophageal reflux disease) Hyperlipidemia Hypertension Hypothyroidism MRSA bacteremia Obesity Osteoarthritis of hip Paranoid schizophrenia, chronic condition Seizure disorder last was 2002--on tegretol, follows with Dr. Vee Mcnulty Vitamin D deficiency Past Family History Family History Father Family history of diabetes mellitus Mother Family history of diabetes mellitus Brother Family history of diabetes mellitus Other No family history of adverse response to anesthesia Past Surgical History Surgical History History of appendectomy History of cholecystectomy History of colonoscopy History of umbilical hernia repair History of wisdom tooth extraction Social History Smoking Status: Never smoker Hx Alcohol Use: Yes Alcohol type: other alcohol intake frequency: holidays/special occasions only Hx Substance Use: No substance use type: does not use Last Used Substance Other:: last used 40yrs ago Physical Exam Vital Signs Last Vital Signs Temp 36.9 C 08/07/20 10:55 Pulse 78 08/07/20 10:55 Resp 23 08/07/20 10:55 BP 135/102 H 08/07/20 10:55 Pulse Ox 96 08/07/20 10:55 Testing Laboratory Results 08/07/20 05:33 08/07/20 05:33 Urine Color Dark Yellow 07/21/20 10:50 Urine Appearance Turbid (Clear) A 07/21/20 10:50 Urine pH 5.0 (4.5-7.5) 07/21/20 10:50 Ur Specific Gilchrist 1.027 (1.000-1.030) 07/21/20 10:50 Urine Protein 1+ (Negative) H 07/21/20 10:50 Urine Glucose (UA) Negative (Negative) 07/21/20 10:50 Urine Ketones Trace (Negative) H 07/21/20 10:50 Urine Nitrite Negative (Negative) 07/21/20 10:50 Ur Leukocyte Esterase Trace (Negative) H 07/21/20 10:50 Urine WBC (Auto) 1-5 /hpf (0-5) 07/21/20 10:50 Urine RBC (Auto) 0-4 /hpf (0-4) 07/21/20 10:50 U Hyaline Cast (Auto) >30 /lpf (0-5) H 07/21/20 10:50 U Epithel Cells (Auto) >30 /lpf (0-5) H 07/21/20 10:50 Urine Bacteria (Auto) Negative (Negative) 07/21/20 10:50 Blood Type AB Positive 08/06/20 11:07 Antibody Screen NEGATIVE 08/06/20 11:07 07/26/20 17:35 Aerobic Blood Culture - Final Blood Staph aureus MRSA Anaerobic Blood Culture - Final No growth in Anaerobic bottle after 5 days. 07/31/20 06:17 Aerobic Blood Culture - Final Blood No growth in Aerobic bottle after 5 days. Anaerobic Blood Culture - Final No growth in Anaerobic bottle after 5 days. 07/31/20 06:01 Aerobic Blood Culture - Final Blood No growth in Aerobic bottle after 5 days. Anaerobic Blood Culture - Final No growth in Anaerobic bottle after 5 days. 07/29/20 08:59 Aerobic Blood Culture - Final Blood Staph aureus MRSA Anaerobic Blood Culture - Final No growth in Anaerobic bottle after 5 days. 07/29/20 08:53 Aerobic Blood Culture - Final Blood Staph aureus MRSA Anaerobic Blood Culture - Final No growth in Anaerobic bottle after 5 days. 07/26/20 17:31 Aerobic Blood Culture - Final Blood Staph aureus MRSA Anaerobic Blood Culture - Final No growth in Anaerobic bottle after 5 days. 07/24/20 17:06 Aerobic Blood Culture - Final Blood Staph aureus MRSA Anaerobic Blood Culture - Final No growth in Anaerobic bottle after 5 days. 07/23/20 08:37 Aerobic Blood Culture - Final Blood Staph aureus MRSA Anaerobic Blood Culture - Final No growth in Anaerobic bottle after 5 days. 07/22/20 09:39 Aerobic Blood Culture - Final Blood Staph aureus MRSA Anaerobic Blood Culture - Final No growth in Anaerobic bottle after 5 days. 07/22/20 09:28 Aerobic Blood Culture - Final Blood Staph aureus MRSA Anaerobic Blood Culture - Final No growth in Anaerobic bottle after 5 days. 07/21/20 11:27 Aerobic Blood Culture - Final Blood Staph aureus MRSA Anaerobic Blood Culture - Final Staph aureus MRSA 07/21/20 10:25 Aerobic Blood Culture - Final Blood Staph aureus MRSA Anaerobic Blood Culture - Final Staph aureus MRSA 07/21/20 10:50 Urine Culture - Final Urine,Straight Cath No growth - less than 1,000 colonies/mL. Electrocardiogram Date: 07/24/20 Findings: + NSR @ (99) Echocardiogram Date: 07/22/20 EF: 70% LV Function: normal Valvular Disease: + no significant valvular disease
--- NOTE | 2020-08-07 11:59 | GI REPORT ---
Patient Name: Renard He Procedure Date: 08/07/2020 11:12 AM Date of : 1955 Admit Type: Inpatient Age: 65 Gender: Male Attending MD: Junito Olivares MD Procedure: Upper GI endoscopy Providers: Junito Olivares MD Referring MD: Toby Bertrand M.d. Indications: Unexplained iron deficiency anemia Medicines: Monitored Anesthesia Care Complications: No immediate complications. Estimated blood loss: None. Estimated Blood Loss: Estimated blood loss: none. Procedure: Pre-Anesthesia Assessment: - Prior Anticoagulants: The patient has taken no previous anticoagulant or antiplatelet agents. - ASA Grade Assessment: II - A patient with mild systemic disease. After obtaining informed consent, the endoscope was passed under direct vision. Throughout the procedure, the patient's blood pressure, pulse, and oxygen saturations were monitored continuously. The Endoscope was introduced through the mouth, and advanced to the second part of duodenum. The upper GI endoscopy was accomplished without difficulty. The patient tolerated the procedure well. Findings: The examined esophagus was normal. Diffuse moderate inflammation characterized by erosions and erythema was found in the stomach. Biopsies were taken with a cold forceps for Helicobacter pylori testing. Estimated blood loss: none. Diffuse mildly erythematous mucosa without active bleeding and with no stigmata of bleeding was found in the duodenal bulb and in the second portion of the duodenum. Impression: - Normal esophagus. - Gastritis. Biopsied. - Erythematous duodenopathy. Recommendation: - Return patient to [facility] for [facility] care. - Advance diet as tolerated today. - Await pathology results. Junito Olivares MD 08/07/2020 11:58:30 AM This report has been signed electronically. Note Initiated On: 08/07/2020 11:12 AM Number of Addenda: 0 I attest to the content of the Intraoperative Record and orders documented therein, exceptions below {[id number]}
--- NOTE | 2020-08-07 12:01 | Anesthesiology Progress Note ---
Date of Service August 07, 2020 Anesthesia Post Procedure Vital Signs Vital Signs: Temp Pulse Pulse Pulse Pulse Resp BP 08/07/20 11:52 79 23 08/07/20 10:55 36.9 C 78 23 08/07/20 08:50 83 14 08/07/20 07:33 36.8 C 83 18 08/06/20 23:01 37.4 C 78 19 08/06/20 20:30 86 08/06/20 19:18 37.4 C 82 18 169/84 H 08/06/20 18:45 37.7 C H 83 18 166/92 H 08/06/20 17:45 37.5 C 89 18 159/92 H 08/06/20 16:48 36.8 C 76 20 154/82 H 08/06/20 16:45 36.8 C 78 20 157/84 H 08/06/20 16:26 37.4 C 78 20 152/82 H 08/06/20 16:17 37.5 C 78 20 158/85 H 08/06/20 15:30 37.3 C 80 18 156/88 H 08/06/20 14:30 37.4 C 85 18 150/75 H 08/06/20 13:30 37.2 C 79 18 144/78 H 08/06/20 13:00 37.3 C 75 18 135/80 08/06/20 12:45 37.3 C 71 18 134/76 08/06/20 12:28 36.9 C 71 18 126/75 BP BP Pulse Ox 08/07/20 11:52 126/80 98 08/07/20 10:55 135/102 H 96 08/07/20 08:50 167/87 H 94 08/07/20 07:33 170/81 H 177/92 H 94 08/06/20 23:01 136/68 94 08/06/20 20:30 168/87 H 08/06/20 19:18 96 08/06/20 18:45 97 08/06/20 17:45 96 08/06/20 16:48 96 08/06/20 16:45 95 08/06/20 16:26 08/06/20 16:17 08/06/20 15:30 95 08/06/20 14:30 94 08/06/20 13:30 96 08/06/20 13:00 93 08/06/20 12:45 94 08/06/20 12:28 94 Pain Intensity Back: Pain Intensity: 2 Right Shoulder: Pain Intensity: 3 Transfer of Care Handoff Completed per policy Notes Mental Status: alert / awake / arousable Patient Amnestic to Procedure: Yes Nausea / Vomiting: adequately controlled Pain: adequately controlled Airway Patency, RR, SpO2: stable & adequate BP & HR: stable & adequate Hydration State: stable & adequate Anesthetic Complications: no major complications apparent and Pt Satisfied with anesthetic care Notes: The patient is recovering in the procedure room. He is awake and comfortable. His vital signs are stable.
--- NOTE | 2020-08-07 12:02 | GI REPORT ---
Patient Name: Renard He Procedure Date: 08/07/2020 11:11 AM Date of : 1955 Admit Type: Inpatient Age: 65 Gender: Male Attending MD: Junito Olivares MD Procedure: Colonoscopy Providers: Junito Olivares MD Referring MD: Toby Bertrand M.d. Indications: Unexplained iron deficiency anemia Medicines: Monitored Anesthesia Care Complications: No immediate complications. Estimated blood loss: None. Estimated Blood Loss: Estimated blood loss: none. Procedure: Pre-Anesthesia Assessment: - Prior Anticoagulants: The patient has taken no previous anticoagulant or antiplatelet agents. - ASA Grade Assessment: II - A patient with mild systemic disease. After I obtained informed consent, the scope was passed under direct vision. Throughout the procedure, the patient's blood pressure, pulse, and oxygen saturations were monitored continuously. The Colonoscope was introduced through the anus and advanced to the cecum, identified by appendiceal orifice and ileocecal valve. The colonoscopy was performed without difficulty. The patient tolerated the procedure well. The quality of the bowel preparation was poor. Findings: A 5 mm polyp was found in the rectum. The polyp was sessile. The polyp was removed with a cold snare. Resection and retrieval were complete. Estimated blood loss: none. A 2 mm polyp was found in the descending colon. The polyp was sessile. The polyp was removed with a cold biopsy forceps. Resection and retrieval were complete. Estimated blood loss: none. Non-bleeding internal hemorrhoids were found during retroflexion. The hemorrhoids were small and had stigmata of recent bleeding. Estimated blood loss: none. Impression: - Preparation of the colon was poor. - One 5 mm polyp in the rectum, removed with a cold snare. Resected and retrieved. - One 2 mm polyp in the descending colon, removed with a cold biopsy forceps. Resected and retrieved. - Non-bleeding internal hemorrhoids. Recommendation: - [facility]. - Advance diet as tolerated today. - Await pathology results. -start hydrocortisone rectal suppositories BID for 2 weeks -repeat colonoscopy in 1 year due to poor prep. Junito Olivares MD 08/07/2020 12:02:15 PM This report has been signed electronically. Note Initiated On: 08/07/2020 11:11 AM Number of Addenda: 0 I attest to the content of the Intraoperative Record and orders documented therein, exceptions below {[id number]}
--- NOTE | 2020-08-07 12:03 | Procedure Note ---
Procedure Note Date of Service August 07, 2020 GI brief procedure note EGD colonoscopy findings: gastritis, erosions, hemorrhoids with stigmata of recent bleeding, colon polyps removed. Recs: f/u path results start hydrocortisone suppositories BID for 2 weeks advance diet as tolerated rest as per primary team Junito Olivares MD Gastroenterology Coding
[2020-08-07] MEDS: VANCOMYCIN HCL 2,000 MG in SODIUM CHLORIDE 0.9% 500 ML IV SCH (17:03)
[2020-08-07] MEDS: TAMSULOSIN HCL 0.4 MG CAP PO SCH (20:01)
[2020-08-07] MEDS: SIMVASTATIN 20 MG TAB PO SCH (20:01)
--- NOTE | 2020-08-07 21:42 | Hospitalist Progress Note ---
Date of Service August 07, 2020 Assessment & Plan (1) MRSA bacteremia: In blood cultures on admission. CT chest incidentally showed possible thoracic spine involvement. MRI thoracic spine on 07/22 was limited, but showed "non-specific prevertebral soft tissue edema/swelling adjacent to the large anterior osteophytes at the T8-T9 and T10-11 levels." - Started on daptomycin on 07/22 for positive blood cultures. - Stopped dapto and started vancomycin given CT chest on 07/22 indicated possi ble pneumonia. - Started ceftaroline on 07/28 for continued bacteremia - ID recs from 07/26: Continue IV abx x 4 weeks after cleared blood culture (End date of IV abx: 08/27/2020), then likely switch to doxycycline 100 mg PO BID for 4 additional weeks. Follow CBC/BMP/ESR/CRP weekly. - Discussing with ID on 08/03. - Continue vanc + ceftaroline until the sensitivity for ceftaroline returns. If it is sensitive, can stop vancomycin and proceed just with ceftaroline. The continued positivity on vancomycin is considered a treatment failure of vanc. - Can place PICC. Discharge held due to anemia/ EGD work up. EGD and colonoscopy completed, no source of bleeding found. will place on hydrocortisone suppositories. - Of note, cost of ceftaroline which is nearly $400/day. If we cannot find placement due to ceftaroline, would need to speak with ID re: vanc vs. daptomycin. Dr. Magdaleno had concerns about myopathy with the high-dose, prolonged daptomycin. -Vanco does not appear to be an option due to fact that patient did not clear out bacteremia with this, and required ceftaroline. (2) Acute renal failure: Baseline Cr ~1.00 - 1.35, eGFR 60 - 75. - Cr on admission was 4.1 with hyaline and granular casts. This points towards dehydration leading to possible ATN. Likely compounded by chlorthalidone, enalapril, and furosemide. - Hold above medications - Nephrology consulted - Agree with current plan. - IV fluids ran until 07/24. - Cr now 1.65 - Also, had urinary retention. Gardner inserted on 07/29. Voiding trial on 08/02 failed, and Gardner re-inserted. Will continue tamsulosin as well and can follow up as outpatient with urology. (3) Anemia: Long-standing macrocytic anemia with recent B12/folate in 02/2020 both normal. Baseline hgb ~12-14. - ED provider was concerned about upper GI bleed given hgb was 9.7 on admission with heme-positive. -> Started on PPI gtt in the ED. - hemoglobin dropped and required PRBC (4) HTN (hypertension): Presently BP is 150/80. Was initially hypotensive this admission, due to sepsis. - Restarted metoprolol tartrate on 08/03 -> Better overall. - Monitor (5) Chest pain: Present since yesterday's fall. Pain occurs with chest wall palpation. Troponin and EKG normal. Negative stress test in 2018. Likely MSK in nature. - Tylenol PRN - Resolved (6) Seizure disorder: Follows with Vee Mcnulty. - Carbamazepine level was 12.0 on admission (upper range of normal) - Reached out to Dr. Rose on 07/31. Restarted at home dose per her recommendations. (7) Paranoid schizophrenia, chronic condition: No presents issues. - Continue topiramate - Restarted venlafaxine on 07/31 as renal function stable. (8) Depression: - As above with schizophrenia (9) HLD (hyperlipidemia): - Restarted statin on 08/01 - Would need to stop if restart daptomycin (10) DVT prophylaxis: Heparin 7,500 units SQ Q12h (weight-based dosing) Admission and Anticipated Discharge Date Admission Date: July 21, 2020 Subjective Patient reports not having much of an appetite today. He tolerated the colonoscopy well. Review of Systems Review of Systems: All systems reviewed & are unremarkable except as noted in HPI & below Physical Exam Physical Exam: Constitutional: WD/WN, vitals as above Eyes: EOM intact bilaterally; no conjunctival abnormality ENMT: external ear and nose normal, oropharynx normal Neck: trachea midline, no thyromegaly normal visual inspection Respiratory: normal respiratory effort, lungs clear to auscultation no respiratory distress and no labored breathing Auscultation: no crackles Cardiovascular: RRR, no murmur, no edema Gastrointestinal (Abdomen): Inspection/Auscultation: abdomen normal to inspection; abdomen not distended Musculoskeletal: no cyanosis or clubbing, extremities motor strength 5/5 Skin: no rashes, warm and dry no ulcers and no erythema Neurologic: moves all extremities and awake Psychiatric: Orientation: alert, oriented to person and cooperative Results & Data Results & Data ([facility]) Vital Signs (Past 12 Hours) Vital Signs Temp Pulse Pulse Resp BP Pulse Ox 08/07/20 20:08 84 167/81 H 94 08/07/20 15:22 37.2 C 86 18 158/80 H 93 08/07/20 12:23 79 22 158/86 H 92 08/07/20 12:07 75 24 146/82 H 100 08/07/20 11:52 79 23 126/80 98 08/07/20 10:55 36.9 C 78 23 135/102 H 96 PG Care Time/CCT Total # of Minutes Spent Total Time Spent with Patient: Total time spent is greater than 50% in coordination of care (as documented) at patient's floor/unit and/or counseling patient: Coding Level of Care Code 83116 Subseq Hosp Care Lvl 3 Diagnoses MRSA bacteremia R78.81; B95.62 Acute renal failure N17.9 Anemia D64.9 HTN (hypertension) I10 Chest pain R07.9 Seizure disorder G40.909 Paranoid schizophrenia, chronic condition F20.0 Depression F32.9 HLD (hyperlipidemia) E78.5 DVT prophylaxis Z29.9
[2020-08-07] MEDS: HYDROCORTISONE ACETATE 25 MG SUPP PR SCH (22:37)
[2020-08-08] MEDS: LEVOTHYROXINE SODIUM 50 MCG TABLET PO SCH (05:23)
[2020-08-08 06:26] LABS: Hematocrit (blood only) 24.7 % (42-52); Hemoglobin 8.2 g/dL (14.0-18.0); Mean Corpuscular Hemoglobin 34.5 pg (25-34); Mean Corpuscular Hgb Conc 33.2 g/dL (32-36); Mean Corpuscular Volume 103.8 fL (80-100); Mean Platelet Volume 9.1 fL (7.4-10.4); Platelet Count 302 K/uL (130-400); RDW Coefficient of Variation 17.1 % (11.5-14.5); RDW Standard Deviation 64.2 fL (36.4-46.3); Red Blood Count 2.38 M/uL (4.7-6.1); White Blood Count 6.63 K/uL (4.8-10.8)
[2020-08-08 06:53] LABS: BUN Creatinine Ratio 10.7 (10-20); Calcium 8.9 mg/dl (8.5-10.1); Creatinine Clr Calc Pharmacy 67.2 ml/min; Est GFR (African American) 55.3; Est GFR (Non-African American) 47.7; Potassium 3.9 mmol/L (3.5-5.1)
[2020-08-08] MEDS: FOLIC ACID 1 MG TAB PO SCH (08:10)
[2020-08-08] MEDS: METOPROLOL TARTRATE 50 MG TAB PO SCH ×2 (08:10→20:25)
[2020-08-08] MEDS: VENLAFAXINE HCL XR 150 MG CAPXR PO SCH (08:10)
[2020-08-08] MEDS: HEPARIN SOD 5,000 UNIT/0.5 ML VIAL SQ SCH ×2 (08:11→20:26)
[2020-08-08] MEDS: carBAMazepine 200 MG TABLET PO SCH ×2 (08:11→20:25)
[2020-08-08] MEDS: TOPIRAMATE 50 MG TAB PO SCH (08:12)
[2020-08-08] MEDS: ALBUT/IPRATROP 3MG/0.5MG NEB 3 ML VIAL NEB PRN ×2 (08:28→19:02)
[2020-08-08] MEDS: HYDROCORTISONE ACETATE 25 MG SUPP PR SCH ×2 (08:56→20:25)
[2020-08-08] MEDS: CEFTAROLINE FOSAMIL ACETATE 600 MG in SODIUM CHLORIDE 0.9% 250 ML IV SCH ×2 (08:56→20:24)
[2020-08-08] MEDS: POLYETHYLENE (MIRALAX) 17 GM PACK PO SCH ×2 (08:56→20:25)
[2020-08-08] MEDS ORDERED: VANCOMYCIN TROUGH ONE (17:30)
[2020-08-08] MEDS: SIMVASTATIN 20 MG TAB PO SCH (20:25)
[2020-08-08] MEDS: TAMSULOSIN HCL 0.4 MG CAP PO SCH (20:25)
--- NOTE | 2020-08-08 22:35 | Hospitalist Progress Note ---
Date of Service August 08, 2020 Assessment & Plan (1) MRSA bacteremia: In blood cultures on admission. CT chest incidentally showed possible thoracic spine involvement. MRI thoracic spine on 07/22 was limited, but showed "non-specific prevertebral soft tissue edema/swelling adjacent to the large anterior osteophytes at the T8-T9 and T10-11 levels." - Started on daptomycin on 07/22 for positive blood cultures. - Stopped dapto and started vancomycin given CT chest on 07/22 indicated possi ble pneumonia. - Started ceftaroline on 07/28 for continued bacteremia - ID recs from 07/26: Continue IV abx x 4 weeks after cleared blood culture (End date of IV abx: 08/27/2020), then likely switch to doxycycline 100 mg PO BID for 4 additional weeks. Follow CBC/BMP/ESR/CRP weekly. - Discussing with ID on 08/03. - Continue vanc + ceftaroline until the sensitivity for ceftaroline returns. If it is sensitive, can stop vancomycin and proceed just with ceftaroline. The continued positivity on vancomycin is considered a treatment failure of vanc. - Can place PICC. Discharge held due to anemia/ EGD work up. EGD and colonoscopy completed, no source of bleeding found. will place on hydrocortisone suppositories. Patient denies any new complaints. - Of note, cost of ceftaroline which is nearly $400/day. If we cannot find placement due to ceftaroline, would need to speak with ID re: vanc vs. daptomycin. Dr. Magdaleno had concerns about myopathy with the high-dose, prolonged daptomycin. -Vanco does not appear to be an option due to fact that patient did not clear out bacteremia with this, and required ceftaroline. (2) Acute renal failure: Baseline Cr ~1.00 - 1.35, eGFR 60 - 75. - Cr on admission was 4.1 with hyaline and granular casts. This points towards dehydration leading to possible ATN. Likely compounded by chlorthalidone, enalapril, and furosemide. - Hold above medications - Nephrology consulted - Agree with current plan. - IV fluids ran until 07/24. - Cr now 1.52 - Also, had urinary retention. Gardner inserted on 07/29. Voiding trial on 08/02 failed, and Gardner re-inserted. Will continue tamsulosin as well and can follow up as outpatient with urology. (3) Anemia: Long-standing macrocytic anemia with recent B12/folate in 02/2020 both normal. Baseline hgb ~12-14. - ED provider was concerned about upper GI bleed given hgb was 9.7 on admission with heme-positive. -> Started on PPI gtt in the ED. - hemoglobin dropped and required PRBC -Hemoglobin is stable. (4) HTN (hypertension): Presently BP is 150/80. Was initially hypotensive this admission, due to sepsis. - Restarted metoprolol tartrate on 08/03 -> Better overall. - Monitor (5) Chest pain: Present since yesterday's fall. Pain occurs with chest wall palpation. Troponin and EKG normal. Negative stress test in 2018. Likely MSK in nature. - Tylenol PRN - Resolved (6) Seizure disorder: Follows with Vee Mcnulty. - Carbamazepine level was 12.0 on admission (upper range of normal) - Reached out to Dr. Rose on 07/31. Restarted at home dose per her recommendations. (7) Paranoid schizophrenia, chronic condition: No presents issues. - Continue topiramate - Restarted venlafaxine on 07/31 as renal function stable. (8) Depression: - As above with schizophrenia (9) HLD (hyperlipidemia): - Restarted statin on 08/01 - Would need to stop if restart daptomycin (10) DVT prophylaxis: Heparin 7,500 units SQ Q12h (weight-based dosing) Admission and Anticipated Discharge Date Admission Date: July 21, 2020 Subjective Patient reports feeling well. Has no new complaints Review of Systems Review of Systems: All systems reviewed & are unremarkable except as noted in HPI & below Physical Exam Physical Exam: Constitutional: WD/WN, vitals as above Eyes: EOM intact bilaterally; no conjunctival abnormality ENMT: external ear and nose normal, oropharynx normal Neck: trachea midline, no thyromegaly normal visual inspection Respiratory: normal respiratory effort, lungs clear to auscultation no respiratory distress and no labored breathing Auscultation: no crackles Cardiovascular: RRR, no murmur, no edema Gastrointestinal (Abdomen): Inspection/Auscultation: abdomen normal to inspection; abdomen not distended Musculoskeletal: no cyanosis or clubbing, extremities motor strength 5/5 Skin: no rashes, warm and dry no ulcers and no erythema Neurologic: moves all extremities and awake Psychiatric: Orientation: alert, oriented to person and cooperative Results & Data Results & Data ([facility]) Vital Signs (Past 12 Hours) Vital Signs Temp Pulse Resp BP BP Pulse Ox 08/08/20 20:22 95 H 162/83 H 08/08/20 19:03 107 H 22 92 08/08/20 15:05 36.9 C 82 18 170/90 H 95 PG Care Time/CCT Total # of Minutes Spent Total Time Spent with Patient: Total time spent is greater than 50% in coordination of care (as documented) at patient's floor/unit and/or counseling patient: Coding Level of Care Code 00682 Subseq Hosp Care Lvl 2 Diagnoses MRSA bacteremia R78.81; B95.62 Acute renal failure N17.9 Anemia D64.9 HTN (hypertension) I10 Chest pain R07.9 Seizure disorder G40.909 Paranoid schizophrenia, chronic condition F20.0 Depression F32.9 HLD (hyperlipidemia) E78.5 DVT prophylaxis Z29.9
[2020-08-09] MEDS: LEVOTHYROXINE SODIUM 50 MCG TABLET PO SCH (05:52)
[2020-08-09] MEDS: TOPIRAMATE 50 MG TAB PO SCH (07:54)
[2020-08-09] MEDS: POLYETHYLENE (MIRALAX) 17 GM PACK PO SCH ×2 (07:54→20:33)
[2020-08-09] MEDS: METOPROLOL TARTRATE 50 MG TAB PO SCH ×2 (07:54→20:32)
[2020-08-09] MEDS: FOLIC ACID 1 MG TAB PO SCH (07:54)
[2020-08-09] MEDS: carBAMazepine 200 MG TABLET PO SCH ×2 (07:55→20:32)
[2020-08-09] MEDS: CEFTAROLINE FOSAMIL ACETATE 600 MG in SODIUM CHLORIDE 0.9% 250 ML IV SCH ×2 (07:55→20:33)
[2020-08-09] MEDS: HEPARIN SOD 5,000 UNIT/0.5 ML VIAL SQ SCH ×2 (07:55→20:33)
[2020-08-09] MEDS: VENLAFAXINE HCL XR 150 MG CAPXR PO SCH (07:55)
[2020-08-09] MEDS: HYDROCORTISONE ACETATE 25 MG SUPP PR SCH ×2 (09:20→20:33)
[2020-08-09] MEDS: ALBUT/IPRATROP 3MG/0.5MG NEB 3 ML VIAL NEB PRN (10:16)
[2020-08-09] MEDS: ACETAMINOPHEN 500 MG TAB PO PRN (16:46)
--- NOTE | 2020-08-09 18:15 | Hospitalist Progress Note ---
Date of Service August 09, 2020 Assessment & Plan (1) MRSA bacteremia: In blood cultures on admission. CT chest incidentally showed possible thoracic spine involvement. MRI thoracic spine on 07/22 was limited, but showed "non-specific prevertebral soft tissue edema/swelling adjacent to the large anterior osteophytes at the T8-T9 and T10-11 levels." - Started on daptomycin on 07/22 for positive blood cultures. - Stopped dapto and started vancomycin given CT chest on 07/22 indicated possi ble pneumonia. - Started ceftaroline on 07/28 for continued bacteremia - ID recs from 07/26: Continue IV abx x 4 weeks after cleared blood culture (End date of IV abx: 08/27/2020), then likely switch to doxycycline 100 mg PO BID for 4 additional weeks. Follow CBC/BMP/ESR/CRP weekly. - Discussing with ID on 08/03. - Continue vanc + ceftaroline until the sensitivity for ceftaroline returns. If it is sensitive, can stop vancomycin and proceed just with ceftaroline. The continued positivity on vancomycin is considered a treatment failure of vanc. - Can place PICC. Discharge held due to anemia/ EGD work up. EGD and colonoscopy completed, no source of bleeding found. will place on hydrocortisone suppositories. Patient denies any new complaints. - Of note, cost of ceftaroline which is nearly $400/day. -Dr. Magdaleno had concerns about myopathy with the high-dose, prolonged daptomycin. -Vanco does not appear to be an option due to fact that patient did not clear out bacteremia with this, and required ceftaroline. - will keep patient until placed. will keep on ceftaroline. (2) Acute renal failure: Baseline Cr ~1.00 - 1.35, eGFR 60 - 75. - Cr on admission was 4.1 with hyaline and granular casts. This points towards dehydration leading to possible ATN. Likely compounded by chlorthalidone, enalapril, and furosemide. - Hold above medications - Nephrology consulted - Agree with current plan. - IV fluids ran until 07/24. - Cr now 1.52 - Also, had urinary retention. Gardner inserted on 07/29. Voiding trial on 08/02 failed, and Gardner re-inserted. Will continue tamsulosin as well and can follow up as outpatient with urology. (3) Anemia: Long-standing macrocytic anemia with recent B12/folate in 02/2020 both normal. Baseline hgb ~12-14. - ED provider was concerned about upper GI bleed given hgb was 9.7 on admission with heme-positive. -> Started on PPI gtt in the ED. - hemoglobin dropped and required PRBC -Hemoglobin is stable. (4) HTN (hypertension): Presently BP is 150/80. Was initially hypotensive this admission, due to sepsis. - Restarted metoprolol tartrate on 08/03 -> Better overall. - Monitor (5) Chest pain: Present since yesterday's fall. Pain occurs with chest wall palpation. Troponin and EKG normal. Negative stress test in 2018. Likely MSK in nature. - Tylenol PRN - Resolved (6) Seizure disorder: Follows with Vee Mcnulty. - Carbamazepine level was 12.0 on admission (upper range of normal) - Reached out to Dr. Rose on 07/31. Restarted at home dose per her recommendations. (7) Paranoid schizophrenia, chronic condition: No presents issues. - Continue topiramate - Restarted venlafaxine on 07/31 as renal function stable. (8) Depression: - As above with schizophrenia (9) HLD (hyperlipidemia): - Restarted statin on 08/01 - Would need to stop if restart daptomycin (10) DVT prophylaxis: Heparin 7,500 units SQ Q12h (weight-based dosing) Admission and Anticipated Discharge Date Admission Date: July 21, 2020 Subjective Patient reports being more active today. He was able to get up to the side of the bed and do some exercises with PT/OT. Review of Systems Review of Systems: All systems reviewed & are unremarkable except as noted in HPI & below Physical Exam Physical Exam: Constitutional: WD/WN, vitals as above Eyes: EOM intact bilaterally; no conjunctival abnormality ENMT: external ear and nose normal, oropharynx normal Neck: trachea midline, no thyromegaly normal visual inspection Respiratory: normal respiratory effort, lungs clear to auscultation no respiratory distress and no labored breathing Auscultation: no crackles Cardiovascular: RRR, no murmur, no edema Gastrointestinal (Abdomen): Inspection/Auscultation: abdomen normal to inspection; abdomen not distended Musculoskeletal: no cyanosis or clubbing, extremities motor strength 5/5 Skin: no rashes, warm and dry no ulcers and no erythema Neurologic: moves all extremities and awake Psychiatric: Orientation: alert, oriented to person and cooperative Results & Data Results & Data ([facility]) Vital Signs (Past 12 Hours) Vital Signs Temp Pulse Resp BP BP Pulse Ox 08/09/20 15:25 37.7 C H 86 18 169/49 H 93 08/09/20 10:16 78 20 94 08/09/20 07:01 37.1 C 89 18 155/83 H 93 PG Care Time/CCT Total # of Minutes Spent Total Time Spent with Patient: Total time spent is greater than 50% in coordination of care (as documented) at patient's floor/unit and/or counseling patient: Coding Level of Care Code 73656 Subseq Hosp Care Lvl 2 Diagnoses MRSA bacteremia R78.81; B95.62 Acute renal failure N17.9 Anemia D64.9 HTN (hypertension) I10 Chest pain R07.9 Seizure disorder G40.909 Paranoid schizophrenia, chronic condition F20.0 Depression F32.9 HLD (hyperlipidemia) E78.5 DVT prophylaxis Z29.9 Time Spent (min) 25
[2020-08-09] MEDS: TAMSULOSIN HCL 0.4 MG CAP PO SCH (20:32)
[2020-08-09] MEDS: SIMVASTATIN 20 MG TAB PO SCH (20:32)
[2020-08-10] MEDS: ALBUT/IPRATROP 3MG/0.5MG NEB 3 ML VIAL NEB PRN (00:04)
[2020-08-10] MEDS: LEVOTHYROXINE SODIUM 50 MCG TABLET PO SCH (05:09)
[2020-08-10] MEDS: METOPROLOL TARTRATE 50 MG TAB PO SCH ×2 (08:10→20:32)
[2020-08-10] MEDS: carBAMazepine 200 MG TABLET PO SCH ×2 (08:10→20:32)
[2020-08-10] MEDS: TOPIRAMATE 50 MG TAB PO SCH (08:10)
[2020-08-10] MEDS: VENLAFAXINE HCL XR 150 MG CAPXR PO SCH (08:10)
[2020-08-10] MEDS: FOLIC ACID 1 MG TAB PO SCH (08:10)
[2020-08-10] MEDS: HEPARIN SOD 5,000 UNIT/0.5 ML VIAL SQ SCH ×2 (08:11→20:32)
[2020-08-10] MEDS: POLYETHYLENE (MIRALAX) 17 GM PACK PO SCH ×2 (08:11→20:31)
[2020-08-10] MEDS: CEFTAROLINE FOSAMIL ACETATE 600 MG in SODIUM CHLORIDE 0.9% 250 ML IV SCH ×2 (08:11→20:31)
[2020-08-10] MEDS: HYDROCORTISONE ACETATE 25 MG SUPP PR SCH ×2 (09:18→20:32)
[2020-08-10] MEDS: ACETAMINOPHEN 500 MG TAB PO PRN (15:27)
--- NOTE | 2020-08-10 17:16 | Hospitalist Progress Note ---
Date of Service August 10, 2020 Assessment & Plan (1) MRSA bacteremia: In blood cultures on admission. CT chest incidentally showed possible thoracic spine involvement. MRI thoracic spine on 07/22 was limited, but showed "non-specific prevertebral soft tissue edema/swelling adjacent to the large anterior osteophytes at the T8-T9 and T10-11 levels." - Started on daptomycin on 07/22 for positive blood cultures. - Stopped dapto and started vancomycin given CT chest on 07/22 indicated possi ble pneumonia. - Started ceftaroline on 07/28 for continued bacteremia - ID recs from 07/26: Continue IV abx x 4 weeks after cleared blood culture (End date of IV abx: 08/27/2020), then likely switch to doxycycline 100 mg PO BID for 4 additional weeks. Follow CBC/BMP/ESR/CRP weekly. - Discussing with ID on 08/03. - Continue vanc + ceftaroline until the sensitivity for ceftaroline returns. If it is sensitive, can stop vancomycin and proceed just with ceftaroline. The continued positivity on vancomycin is considered a treatment failure of vanc. - Can place PICC. - No change today, but now having slight ("low") fevers of 37.7. Will re- culture. If positive, will consider transfer for further care. (2) Acute renal failure: Baseline Cr ~1.00 - 1.35, eGFR 60 - 75. - Cr on admission was 4.1 with hyaline and granular casts. This points towards dehydration leading to possible ATN. Likely compounded by chlorthalidone, enalapril, and furosemide. - Hold above medications - Nephrology consulted - Agree with current plan. - IV fluids ran until 07/24. - Cr now 1.5. - Also, had urinary retention. Gardner inserted on 07/29. Voiding trial on 08/02 failed, and Gardner re-inserted. Will start tamsulosin as well and can follow up as outpatient with urology. (3) Anemia: Long-standing macrocytic anemia with recent B12/folate in 02/2020 both normal. Baseline hgb ~12-14. - ED provider was concerned about upper GI bleed given hgb was 9.7 on admission with heme-positive. -> Started on PPI gtt in the ED. - Lowering hgb from admission. Down to 6.6 on 08/06. - Gastritis and duodenopathy noted on EGD on 08/07. Hemorrhoids seen on colonoscopy on 08/07. No active bleeding and no indication of recent bleeding. Anusol suppositories started. (4) HTN (hypertension): Presently BP is 155/80. Was initially hypotensive this admission, due to sepsis. - Restarted metoprolol tartrate on 08/03 -> Better overall. - Monitor (5) Seizure disorder: Follows with Vee Mcnulty. - Carbamazepine level was 12.0 on admission (upper range of normal) - Reached out to Dr. Rose on 07/31. Restarted at home dose per her recommendations. (6) Paranoid schizophrenia, chronic condition: No presents issues. - Continue topiramate - Restarted venlafaxine on 07/31 as renal function stable. (7) Depression: - As above with schizophrenia (8) HLD (hyperlipidemia): - Restarted statin on 08/01 - Would need to stop if restart daptomycin (9) DVT prophylaxis: Heparin 7,500 units SQ Q12h (weight-based dosing) Admission and Anticipated Discharge Date Admission Date: July 21, 2020 Subjective No change today. No subjective fevers. Reports no fevers/chills, chest pain, shortness of breath, abdominal pain, nausea, or vomiting. Physical Exam Constitutional: WD/WN, vitals as above Eyes: EOM intact bilaterally; no conjunctival abnormality ENMT: external ear and nose normal, oropharynx normal Neck: trachea midline, no thyromegaly normal visual inspection Respiratory: normal respiratory effort, lungs clear to auscultation no respiratory distress and no labored breathing Auscultation: no crackles Cardiovascular: RRR, no murmur, no edema Gastrointestinal (Abdomen): Inspection/Auscultation: abdomen normal to inspection; abdomen not distended Musculoskeletal: no cyanosis or clubbing, extremities motor strength 5/5 Skin: no rashes, warm and dry no ulcers and no erythema Neurologic: moves all extremities and awake Psychiatric: Orientation: alert, oriented to person and cooperative Results & Data Results & Data ([facility]) Vital Signs (Past 12 Hours) Vital Signs Temp Pulse Resp BP Pulse Ox 08/10/20 16:24 154/79 H 08/10/20 15:15 37.6 C H 90 18 179/77 H 94 08/10/20 07:45 37.2 C 62 18 154/71 H 96 PG Care Time/CCT Total # of Minutes Spent Total Time Spent with Patient: Total time spent is greater than 50% in coordination of care (as documented) at patient's floor/unit and/or counseling patient: Coding Level of Care Code 64201 Subseq Hosp Care Lvl 2 Diagnoses MRSA bacteremia R78.81; B95.62 Acute renal failure N17.9 Anemia D64.9 HTN (hypertension) I10 Seizure disorder G40.909 Paranoid schizophrenia, chronic condition F20.0 Depression F32.9 HLD (hyperlipidemia) E78.5 DVT prophylaxis Z29.9
[2020-08-10] MEDS: SIMVASTATIN 20 MG TAB PO SCH (20:32)
[2020-08-10] MEDS: TAMSULOSIN HCL 0.4 MG CAP PO SCH (20:32)
[2020-08-11] MEDS: LEVOTHYROXINE SODIUM 50 MCG TABLET PO SCH (05:40)
[2020-08-11 09:04] LABS: Hematocrit (blood only) 22.8 % (42-52); Hemoglobin 7.4 g/dL (14.0-18.0); Mean Corpuscular Hemoglobin 33.5 pg (25-34); Mean Corpuscular Hgb Conc 32.5 g/dL (32-36); Mean Corpuscular Volume 103.2 fL (80-100); Mean Platelet Volume 9.6 fL (7.4-10.4); Platelet Count 323 K/uL (130-400); RDW Coefficient of Variation 16.2 % (11.5-14.5); RDW Standard Deviation 61.4 fL (36.4-46.3); Red Blood Count 2.21 M/uL (4.7-6.1); White Blood Count 4.74 K/uL (4.8-10.8)
[2020-08-11] MEDS: VENLAFAXINE HCL XR 150 MG CAPXR PO SCH (09:20)
[2020-08-11] MEDS: FOLIC ACID 1 MG TAB PO SCH (09:20)
[2020-08-11] MEDS: TOPIRAMATE 50 MG TAB PO SCH (09:20)
[2020-08-11] MEDS: METOPROLOL TARTRATE 50 MG TAB PO SCH ×2 (09:20→20:43)
[2020-08-11] MEDS: carBAMazepine 200 MG TABLET PO SCH ×2 (09:20→20:43)
[2020-08-11] MEDS: CEFTAROLINE FOSAMIL ACETATE 600 MG in SODIUM CHLORIDE 0.9% 250 ML IV SCH (09:20)
[2020-08-11] MEDS: POLYETHYLENE (MIRALAX) 17 GM PACK PO SCH ×2 (09:21→20:43)
[2020-08-11] MEDS: HYDROCORTISONE ACETATE 25 MG SUPP PR SCH ×2 (09:21→20:43)
[2020-08-11] MEDS: HEPARIN SOD 5,000 UNIT/0.5 ML VIAL SQ SCH ×2 (09:21→20:43)
[2020-08-11 09:28] LABS: BUN Creatinine Ratio 8.5 (10-20); Calcium 8.7 mg/dl (8.5-10.1); Creatinine Clr Calc Pharmacy 63.1 ml/min; Est GFR (African American) 51.2; Est GFR (Non-African American) 44.2; Magnesium 1.9 mg/dl (1.8-2.4); Potassium 3.8 mmol/L (3.5-5.1)
[2020-08-11] MEDS: ALBUT/IPRATROP 3MG/0.5MG NEB 3 ML VIAL NEB PRN (10:35)
--- NOTE | 2020-08-11 13:08 | Hospitalist Progress Note ---
Date of Service August 11, 2020 Assessment & Plan (1) MRSA bacteremia: In blood cultures on admission. CT chest incidentally showed possible thoracic spine involvement. MRI thoracic spine on 07/22 was limited, but showed "non-specific prevertebral soft tissue edema/swelling adjacent to the large anterior osteophytes at the T8-T9 and T10-11 levels." - Started on daptomycin on 07/22 for positive blood cultures. - Stopped dapto and started vancomycin given CT chest on 07/22 indicated possi ble pneumonia. - Started ceftaroline on 07/28 for continued bacteremia - ID recs from 07/26: Continue IV abx x 4 weeks after cleared blood culture (End date of IV abx: 08/27/2020), then likely switch to doxycycline 100 mg PO BID for 4 additional weeks. Follow CBC/BMP/ESR/CRP weekly. - Discussing with ID on 08/03. - Continue vanc + ceftaroline until the sensitivity for ceftaroline returns. If it is sensitive, can stop vancomycin and proceed just with ceftaroline. The continued positivity on vancomycin is considered a treatment failure of vanc. - Can place PICC. - No change today, but had slight ("low") fevers of 37.7 on 08/10. Re- cultured; monitoring. (2) Acute renal failure: Baseline Cr ~1.00 - 1.35, eGFR 60 - 75. - Cr on admission was 4.1 with hyaline and granular casts. This points towards dehydration leading to possible ATN. Likely compounded by chlorthalidone, enalapril, and furosemide. - Hold above medications - Nephrology consulted - Agree with current plan. - IV fluids ran until 07/24. - Cr now 1.6. - Also, had urinary retention. Gardner inserted on 07/29. Voiding trial on 08/02 failed, and Gardner re-inserted. Will start tamsulosin as well and can follow up as outpatient with urology. (3) Anemia: Long-standing macrocytic anemia with recent B12/folate in 02/2020 both normal. Baseline hgb ~12-14. - ED provider was concerned about upper GI bleed given hgb was 9.7 on admission with heme-positive. -> Started on PPI gtt in the ED. - Lowering hgb from admission. Down to 6.6 on 08/06. - Gastritis and duodenopathy noted on EGD on 08/07. Hemorrhoids seen on colonoscopy on 08/07. No active bleeding and no indication of recent bleeding. Anusol suppositories started. - Will recheck all anemia labs given his continued dropping hemoglobin. (4) HTN (hypertension): Presently BP is 155/80. Was initially hypotensive this admission, due to sepsis. - Restarted metoprolol tartrate on 08/03 -> Better overall. - Monitor (5) Seizure disorder: Follows with Vee Mcnulty. - Carbamazepine level was 12.0 on admission (upper range of normal) - Reached out to Dr. Rose on 07/31. Restarted at home dose per her recommendations. (6) Paranoid schizophrenia, chronic condition: No presents issues. - Continue topiramate - Restarted venlafaxine on 07/31 as renal function stable. (7) Depression: - As above with schizophrenia (8) HLD (hyperlipidemia): - Restarted statin on 08/01 - Would need to stop if restart daptomycin (9) DVT prophylaxis: Heparin 7,500 units SQ Q12h (weight-based dosing) Admission and Anticipated Discharge Date Admission Date: July 21, 2020 Subjective No change today. Feels well overall. Reports no fevers/chills, chest pain, shortness of breath, abdominal pain, nausea, or vomiting. Physical Exam Constitutional: WD/WN, vitals as above Eyes: EOM intact bilaterally; no conjunctival abnormality ENMT: external ear and nose normal, oropharynx normal Neck: trachea midline, no thyromegaly normal visual inspection Respiratory: normal respiratory effort, lungs clear to auscultation no respiratory distress and no labored breathing Auscultation: no crackles Cardiovascular: RRR, no murmur, no edema Gastrointestinal (Abdomen): Inspection/Auscultation: abdomen normal to inspection; abdomen not distended Musculoskeletal: no cyanosis or clubbing, extremities motor strength 5/5 Skin: no rashes, warm and dry no ulcers and no erythema Neurologic: moves all extremities and awake Psychiatric: Orientation: alert, oriented to person and cooperative Results & Data Results & Data ([facility]) Vital Signs (Past 12 Hours) Vital Signs Temp Pulse Resp BP Pulse Ox 08/11/20 10:35 88 18 93 08/11/20 07:57 37.0 C 89 20 156/79 H 93 PG Care Time/CCT Total # of Minutes Spent Total Time Spent with Patient: Total time spent is greater than 50% in coordination of care (as documented) at patient's floor/unit and/or counseling patient: Coding Level of Care Code 49833 Subseq Hosp Care Lvl 2 Diagnoses MRSA bacteremia R78.81; B95.62 Acute renal failure N17.9 Anemia D64.9 HTN (hypertension) I10 Seizure disorder G40.909 Paranoid schizophrenia, chronic condition F20.0 Depression F32.9 HLD (hyperlipidemia) E78.5 DVT prophylaxis Z29.9
[2020-08-11] MEDS: ACETAMINOPHEN 500 MG TAB PO PRN (15:38)
[2020-08-11] MEDS: MAGNESIUM HYDROXIDE SUSP 30 ML UDC PO PRN (15:38)
[2020-08-11] MEDS: TAMSULOSIN HCL 0.4 MG CAP PO SCH (20:43)
[2020-08-11] MEDS: SIMVASTATIN 20 MG TAB PO SCH (20:43)
[2020-08-12] MEDS: LEVOTHYROXINE SODIUM 50 MCG TABLET PO SCH (05:55)
[2020-08-12 06:05] LABS: Hematocrit (blood only) 22.9 % (42-52); Hemoglobin 7.4 g/dL (14.0-18.0); Immature Retic Fraction 22.5 % (2.3-13.4); Mean Corpuscular Hemoglobin 33.2 pg (25-34); Mean Corpuscular Hgb Conc 32.3 g/dL (32-36); Mean Corpuscular Volume 102.7 fL (80-100); Mean Platelet Volume 8.7 fL (7.4-10.4); Platelet Count 294 K/uL (130-400); RDW Coefficient of Variation 16.4 % (11.5-14.5); RDW Standard Deviation 61.7 fL (36.4-46.3); Red Blood Count 2.23 M/uL (4.7-6.1); Reticulated Hemoglobin 29.1 pg (28.2-36.6); Reticulocyte % 2.8 % (0.5-2.0); Reticulocytes # 0.06 10^6/uL (0.02-0.10); White Blood Count 5.14 K/uL (4.8-10.8)
[2020-08-12 06:38] LABS: Fibrinogen 604 mg/dl (184-400)
[2020-08-12 06:46] LABS: Albumin Level 1.9 gm/dl (3.4-5.0); Calcium 8.2 mg/dl (8.5-10.1); Creatinine Clr Calc Pharmacy 67.2 ml/min; Est GFR (African American) 55.3; Est GFR (Non-African American) 47.7; Magnesium 2.2 mg/dl (1.8-2.4); Potassium 3.7 mmol/L (3.5-5.1)
[2020-08-12 06:48] LABS: Albumin Globulin Ratio 0.4 (0.9-2); Bilirubin,Total 0.4 mg/dl (0.2-1); Ferritin 1025.4 ng/ml (8-388); Globulin 4.7 gm/dl (2.5-4.0); Total Protein 6.6 gm/dl (6.4-8.2)
[2020-08-12 07:15] LABS: Folate (Folic Acid) > 20.00 ng/ml (>5.38); Vitamin B12 526 pg/ml (193-986)
[2020-08-12] MEDS: POLYETHYLENE (MIRALAX) 17 GM PACK PO SCH (10:04)
[2020-08-12] MEDS: FOLIC ACID 1 MG TAB PO SCH (10:07)
[2020-08-12] MEDS: TOPIRAMATE 50 MG TAB PO SCH (10:07)
[2020-08-12] MEDS: carBAMazepine 200 MG TABLET PO SCH ×2 (10:07→21:56)
[2020-08-12] MEDS: VENLAFAXINE HCL XR 150 MG CAPXR PO SCH (10:07)
[2020-08-12] MEDS: METOPROLOL TARTRATE 50 MG TAB PO SCH ×2 (10:07→21:56)
[2020-08-12] MEDS: HEPARIN SOD 5,000 UNIT/0.5 ML VIAL SQ SCH ×2 (10:08→19:57)
[2020-08-12] MEDS: HYDROCORTISONE ACETATE 25 MG SUPP PR SCH ×2 (10:08→21:51)
--- NOTE | 2020-08-12 13:19 | Hospitalist Progress Note ---
Date of Service August 12, 2020 Assessment & Plan (1) MRSA bacteremia: In blood cultures on admission. CT chest incidentally showed possible thoracic spine involvement. MRI thoracic spine on 07/22 was limited, but showed "non-specific prevertebral soft tissue edema/swelling adjacent to the large anterior osteophytes at the T8-T9 and T10-11 levels." - Started on daptomycin on 07/22 for positive blood cultures. - Stopped dapto and started vancomycin given CT chest on 07/22 indicated possi ble pneumonia. - Started ceftaroline on 07/28 for continued bacteremia - ID recs from 07/26: Continue IV abx x 4 weeks after cleared blood culture (End date of IV abx: 08/27/2020), then likely switch to doxycycline 100 mg PO BID for 4 additional weeks. Follow CBC/BMP/ESR/CRP weekly. - Discussing with ID on 08/03. - Continue vanc + ceftaroline until the sensitivity for ceftaroline returns. If it is sensitive, can stop vancomycin and proceed just with ceftaroline. The continued positivity on vancomycin is considered a treatment failure of vanc. - Can place PICC. - Fever yesterday. Notes some new left hip pain. Will get broad CT scans to look for missed/uncontrolled source of infection. (2) Acute renal failure: Baseline Cr ~1.00 - 1.35, eGFR 60 - 75. - Cr on admission was 4.1 with hyaline and granular casts. This points towards dehydration leading to possible ATN. Likely compounded by chlorthalidone, enalapril, and furosemide. - Hold above medications - Nephrology consulted - Agree with current plan. - IV fluids ran until 07/24. - Cr now 1.6. - Also, had urinary retention. Gardner inserted on 07/29. Voiding trial on 08/02 failed, and Gardner re-inserted. Will start tamsulosin as well and can follow up as outpatient with urology. (3) Anemia: Long-standing macrocytic anemia with recent B12/folate in 02/2020 both normal. Baseline hgb ~12-14. - Lowering hgb from admission. Down to 6.6 on 08/06. Got 2 units PRBCs on 08/06. - Gastritis and duodenopathy noted on EGD on 08/07. Hemorrhoids seen on colonoscopy on 08/07. No active bleeding and no indication of recent bleeding. Anusol suppositories started. - Anemia labs on 08/12 showed normal B12/folate. Indicate anemia of chronic disease as cause. Given continued fevers, will hold off on IV iron. (4) HTN (hypertension): Presently BP is 165/80. Was initially hypotensive this admission, due to sepsis. - Restarted metoprolol tartrate on 08/03 -> Better overall. Overall 135 - 165 in the last 24 hours. - Monitor (5) Seizure disorder: Follows with Vee Mcnulty. - Carbamazepine level was 12.0 on admission (upper range of normal) - Reached out to Dr. Rose on 07/31. Restarted at home dose per her recommendations. (6) Paranoid schizophrenia, chronic condition: No presents issues. - Continue topiramate - Restarted venlafaxine on 07/31 as renal function stable. (7) Depression: - As above with schizophrenia (8) HLD (hyperlipidemia): - Restarted statin on 08/01 - Would need to stop if restart daptomycin (9) DVT prophylaxis: Heparin 7,500 units SQ Q12h (weight-based dosing) Admission and Anticipated Discharge Date Admission Date: July 21, 2020 Subjective Had a fever yesterday. Today has had multiple episodes of diarrhea after having Miralax and Milk of Mg yesterday. Reports no chest pain, shortness of breath, abdominal pain, nausea, or vomiting. Physical Exam Constitutional: WD/WN, vitals as above Eyes: EOM intact bilaterally; no conjunctival abnormality ENMT: external ear and nose normal, oropharynx normal Neck: trachea midline, no thyromegaly normal visual inspection Respiratory: normal respiratory effort, lungs clear to auscultation no respiratory distress and no labored breathing Auscultation: no crackles Cardiovascular: RRR, no murmur, no edema Gastrointestinal (Abdomen): Inspection/Auscultation: abdomen normal to inspection; abdomen not distended Musculoskeletal: no cyanosis or clubbing, extremities motor strength 5/5 Skin: no rashes, warm and dry no ulcers and no erythema Neurologic: moves all extremities and awake Psychiatric: Orientation: alert, oriented to person and cooperative Results & Data Results & Data ([facility]) Vital Signs (Past 12 Hours) Vital Signs Temp Pulse Resp BP Pulse Ox 08/12/20 07:27 36.8 C 84 20 166/82 H 92 PG Care Time/CCT Total # of Minutes Spent Total Time Spent with Patient: Total time spent is greater than 50% in coordination of care (as documented) at patient's floor/unit and/or counseling patient: Coding Level of Care Code 83287 Subseq Hosp Care Lvl 3 Diagnoses MRSA bacteremia R78.81; B95.62 Acute renal failure N17.9 Anemia D64.9 HTN (hypertension) I10 Seizure disorder G40.909 Paranoid schizophrenia, chronic condition F20.0 Depression F32.9 HLD (hyperlipidemia) E78.5 DVT prophylaxis Z29.9
[2020-08-12] MEDS ORDERED: IOVERSOL 100ml IV ONE (16:27)
--- NOTE | 2020-08-12 17:50 | CT Scan Report ---
CT SCAN OF THE CHEST, ABDOMEN, AND PELVIS WITH IV CONTRAST; CT SCAN OF THE LEFT HIP CLINICAL HISTORY: Bacteremia. COMPARISON STUDY: Chest CT dated 07/22/2020. Abdominal CT dated 07/21/2020. TECHNIQUE: Following the IV administration of 93 of Optiray 320, CT scan of the chest, abdomen, and p bubba was performed from the thoracic inlet to the proximal femora. Additionally, contrast-enhanced C T scan of the left hip is performed from the bony pelvis to the femoral shaft. Images for these exami nations are reviewed in the axial, sagittal, and coronal planes. IV contrast was administered without complication. Oral contrast was utilized. A dose lowering technique was utilized adhering to the ronak ammonples of [place]. CT DOSE: 2623.09 mGy.cm FINDINGS: CHEST: Thyroid: Imaged portions of the thyroid gland are atrophic. Thoracic aorta: The thoracic aorta is normal in caliber and demonstrates standard 3-vessel arch anato my. No dissection is seen. Pulmonary vasculature: The pulmonary trunk is normal in caliber. There are no filling defects identif ied in the central pulmonary vessels to indicate pulmonary embolus. Note that this examination was no t protocoled for evaluation of the pulmonary arteries. Heart: The heart is top normal in size and without pericardial effusion. The coronary arteries are de nsely calcified. Lungs and pleural spaces: There are small to moderate bilateral pleural effusions/collections with as sociated dependent consolidation. These have increased in size as compared to 07/22/2020. There is pleu ral thickening identified around the pleural effusion at the right lung base with foci of gas within the pleural fluid. This measures approximately 15 x 6.5 cm. No similar appearing changes are identifi ed involving the left pleural effusions. Mediastinum: There is no mediastinal lymphadenopathy. Vani: Clear. Axillae: There is no axillary lymphadenopathy. Bony thorax: The skeletal structures are osteopenic. No lytic or blastic lesions are identified. Dege nerative change is seen throughout the thoracic spine with large anterior osteophytes. 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 No erosive bony change is identified. Chronic change/sclerosis is again seen within the right posterior 8th rib at the costovertebral junction. Marked paravertebral edema is again seen from T7 to T10. Arthritic ch yifan is noted in the shoulders. ABDOMEN AND PELVIS: Liver: The contrast-enhanced liver is normal in size, contour, and attenuation. There is minimal intr ahepatic biliary ductal dilatation. The hepatic veins and portal veins are patent. Gallbladder: Surgically absent noting clips in the gallbladder fossa. Spleen: The spleen is enlarged measuring 17 cm in length. There is a 4.5 cm perfusion defect identifi ed in the superior spleen seen on image #80. This is consistent with a splenic infarct. The spleen is otherwise normal in attenuation. Pancreas: Moderately atrophic and grossly unremarkable. Adrenal glands: A 1.8 cm right adrenal nodule is unchanged. The left adrenal gland is normal in appea lane. Kidneys: The contrast enhanced kidneys demonstrate cortical atrophy and are without hydronephrosis. S mall peripelvic cysts are seen bilaterally. The kidneys enhance symmetrically. There is nonspecific b ilateral perinephric stranding. Abdominal vasculature: The abdominal aorta is normal in course and caliber. Stomach and bowel: There is a large hiatal hernia, with over half of the stomach located in the thora cic cavity. There is no bowel obstruction. Liquid stool is seen throughout the colon. Enteric contras t reaches the proximal transverse colon. There is a small duodenal diverticulum. The appendix is wel l-visualized and normal. Peritoneum: There is trace free fluid tracking in the left paracolic gutter and in the left pelvis. N o intraperitoneal free air is identified. Lymphadenopathy: None. Pelvic viscera: The bladder is decompressed around a Gardner catheter and not well evaluated. Small foc i of gas are present within the bladder lumen. The prostate and seminal vesicles are normal as imaged . There is asymmetric atrophy of the left iliopsoas musculature. Skeletal structures: The skeletal structures are osteopenic. There is moderate lumbosacral spondylosi s. Advanced degenerative/destructive changes in the left hip. See below. Soft tissue thickening is se en around the right hip with no joint effusion. No lytic or blastic lesions are seen. Soft tissues: There is mild body wall edema. LEFT HIP: Advanced chronic/destructive change is identified in the left hip with marked joint space n arrowing and extensive bony overgrowth around the hip. There is flattening of the femoral head, with sclerosis and subchondral cyst formation within the femoral head and acetabulum. This has not signifi cant changed as compared to the 07/21/2020 examination. There is surrounding bursal fluid with no large joint effusion. Significant soft tissue inflammation is seen around the hip. The degree of inflammat ion has likely increased from 07/21/2020. There is no bony erosion typical for osteomyelitis. IMPRESSION: 1. There are small to moderate pleural effusions/collections with associated bibasilar consolidation. This could represent atelectasis and/or pneumonia. The pleural effusions have have increased in size as compared to 07/22/2020. 2. There is pleural thickening identified around the right pleural effusion/collection which measures up to 15 cm in length. Additionally, there are foci of gas within this pleural fluid. The findings a re concerning for infection/developing empyema. 3. 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 This is similar in appearance to previous. 4. There is no bony erosion/destructive change identified throughout the thoracolumbar spine typical for discitis/osteomyelitis 5. Marked paravertebral edema is seen at the T7-T10 levels. This has modestly increased as compared t o the 07/22/2020 examination and may be on an infectious or inflammatory basis. Again, there is no unde rlying destructive bony change. 6. Splenomegaly. 7. There is a 4.5 cm perfusion defect identified in the superior spleen consistent with a splenic inf arct. This is new from previous. 8. Large hiatal hernia. 9. Advanced chronic degenerative/destructive change is again seen involving the left hip. The degree of surrounding soft tissue inflammation has modestly increased as compared to 07/21/2020. This is nonsp ecific, and the soft tissue inflammation could be on an infectious or inflammatory basis. There is no large joint effusion and no erosive change is identified typical for osteomyelitis. 10. There is a small volume of ascites. 11. There is mild nonspecific perinephric stranding. Correlate with urinalysis. 12. Liquid stool is noted in the colon. Correlate clinically for evidence of a diarrheal illness. 13. Additional findings as above. ACT 112: Positive. There are findings on this exam that require communication between the performing entity and the patient following Patient Test Result Information Act ([place] Act 112) guidelines. Electronically signed by: Patrice Leonard M.D. 08/12/2020 5:48 PM
--- NOTE | 2020-08-12 18:43 | Pulmonary Consultation ---
Date of Consultation August 12, 2020 Assessment & Plan (1) Pleural effusion: CT chest 08/12/2020 personally reviewed: Bilateral pleural effusion, right-sided pleural effusion has air pockets in it as well as pleural thickening. Bedside ultrasound 08/12/2020 shows loculations on the right-sided pleural effusion. --Bilateral pleural effusion Thickening of pleura appreciated on the right side with air in the pleural cavity In a patient with MRSA bacteremia and air pockets in the pleural cavity likelihood of empyema is high We will put a chest tube in --History of MRSA bacteremia Patient is on antibiotics Patient does have PFO intra-atrial with small right to left shunt --Morbid obesity with probable NEW BiPAP nightly and as needed shortness of breath Keep O2 saturation between 90-92% Plan: Risk and benefits of the procedure explained to the patient in depth. He agrees and wants to go ahead with the procedure Consent signed, witnessed and put in the chart Would recommend diuresis for the patient as well given the bilateral pleural effusion. Please note the above document was generated using voice recognition software. It may contain grammatical, syntax or spelling errors.Any formal questions or concerns about the content, text or information contained within the body of this dictation should be directly addressed to the provider for clarification. (2) MRSA bacteremia: History of Present Illness Attending Physician: Jonn Bowman MD History of Present Illness 65-year-old male with past medical history of hypertension schizophrenia was admitted to the hospital on 07/21/2020 because of generalized fatigue and weakness and also in renal failure. He was found to have MRSA bacteremia. He is currently on antibiotics. Patient against started spiking fever. Vega CT was ordered which showed bilateral pleural effusion but air in the right-sided pleural cavity right representing empyema Pulmonary were consulted for possible empyema on the right side At the time of examination patient states that he has been having difficulty breathing since yesterday. When he had a CAT scan done today he had difficulty breathing when he was lying flat. Patient was breathing a little bit heavy. He denies any any cough. No hemoptysis. Denies any chest pain. No headache, no nausea or vomiting. Poor appetite. Social history: Greater than [id number] smoking history quit 3 years ago, used to do marijuana before. Allergies Allergy/AdvReac Type Severity Reaction Status Date / Time loxapine AdvReac Mild restless Verified 07/22/20 16:46 and nervous morphine AdvReac Mild nausea/vomi Verified 07/22/20 16:46 ting Home Medications Medication Instructions Recorded Confirmed Type cholecalciferol (vitamin D3) 2,000 unit PO QAM 01/13/19 07/21/20 History [Vitamin D3] levothyroxine 50 mcg PO QAM 01/13/19 07/21/20 History [id number] 1 tab PO QAM 01/13/19 07/21/20 History [Multivitamin 50 Plus] simvastatin 20 mg PO HS 01/13/19 07/21/20 History venlafaxine 150 mg PO QAM 01/13/19 07/21/20 History chlorthalidone 25 mg PO DAILY 07/21/20 07/21/20 History enalapril maleate 20 mg PO BID 07/21/20 07/21/20 History folic acid 1 mg PO DAILY 07/21/20 07/21/20 History furosemide 20 mg PO BID 07/21/20 07/21/20 History metoprolol tartrate 100 mg PO BID 07/21/20 07/21/20 History topiramate 50 mg PO DAILY 07/21/20 07/21/20 History carbamazepine [Tegretol] 600 mg PO BID 07/31/20 07/31/20 History Patient History Medical History OCTAVIO (acute kidney injury) Anemia Anxiety Depression GERD (gastroesophageal reflux disease) Hyperlipidemia Hypertension Hypothyroidism MRSA bacteremia Obesity Osteoarthritis of hip Paranoid schizophrenia, chronic condition Seizure disorder last was 2002--on tegretol, follows with Dr. Vee Mcnulty Vitamin D deficiency Surgical History History of appendectomy History of cholecystectomy History of colonoscopy History of umbilical hernia repair History of wisdom tooth extraction Family History Father Family history of diabetes mellitus Mother Family history of diabetes mellitus Brother Family history of diabetes mellitus Other No family history of adverse response to anesthesia Social History Smoking Status: Never smoker Second Hand Exposure: Yes (mom smoked); Hx Alcohol Use: Yes Alcohol type: other Hx Substance Use: No Preferred Language: [place] Communication Ability: Effective Endocrinology Physician Required: No Beliefs That Will Affect Care: None marital status: Single Current Living Situation: Alone How many Children do You have: 0 Feels Safe at Home: Yes Assistive Devices: Glasses Review of Systems Review of Systems: All systems reviewed & are unremarkable except as noted in HPI & below Physical Exam Physical Exam: Constitutional: Mild respiratory distress HEENT: EOMI, PERRLA Respiratory system: Decreased air entry bilaterally, no wheeze, rhonchi, positive crackles bilateral lower lobes CVS: S1-S2 positive, no murmurs or gallops Abdomen: Soft, nontender, nondistended, positive bowel sounds x4 Extremities: +2 pulses bilaterally radialis/ dorsalis pedis, no cyanosis, +2 edema bilateral lower extremity Neuro: Awake alert oriented x3 Psych: Normal mood and affect G/U: Positive Gardner Skin: no rashes, warm and dry Lymphatic: no cervical or axillary lymphadenopathy Results & Data Results & Data ([facility]) Vital Signs (Past 12 Hours) Vital Signs Temp Pulse Resp BP Pulse Ox 08/12/20 15:43 36.8 C 87 18 161/78 H 94 08/12/20 07:27 36.8 C 84 20 166/82 H 92 08/12/20 05:51 08/12/20 05:51 PG Care Time/CCT Total # of Minutes Spent Total Time Spent with Patient: Total time spent is greater than 50% in coordin ation of care (as documented) at patient's floor/unit and/or counseling patient: Coding Level of Care Code 35762 Inpt Consult Level 4 Diagnoses Pleural effusion J90 MRSA bacteremia R78.81; B95.62
[2020-08-12] MEDS ORDERED: LIDOCAINE HCL 1% 20 ML VIAL ONE (19:27)
--- NOTE | 2020-08-12 20:19 | Procedure Note ---
Procedure Note Date of Service August 12, 2020 Procedure: Pigtail chest tube insertion Senior Portfolio Analyst: Dr. Anai Caal Indication: Possible empyema right-sided Consent: Signed by patient and verified with timeout prior to procedure Anesthesia: 1% lidocaine without epinephrine local Procedure: Consent was verified and timeout performed. Appropriate imaging studies were reviewed prior to the procedure. Patient was placed in a seated position. Appropriate site above the diaphragm on the right midaxillary line fourth intercostal space for chest tube insertion was selected. The skin was prepped and draped in normal sterile fashion. Lidocaine was used for local analgesia. Fluid was aspirated via the finder needle. A small skin nancy was made with the scalpel and the catheter over the needle apparatus was advanced over the rib into the pleural space. With the help of guidewire and Seldinger technique, 14 Romanian pigtail catheter was inserted and connected to Pleur-evac. Minimal air leak appreciated after that. Serosanguineous very thick fluid was aspirated with proteinaceous material within it. It was very difficult to drain the fluid, the likelihood of patient needing mist 2 protocol is high. We will decide if the patient needs it or not based on chest x-ray Chest x-ray to follow Fluid was sent for labs, culture and cytology. The patient tolerated the procedure without obvious complication Complications: None Blood loss: Less than 2 cc. Coding CPT Codes Pulmonary/Thoracic - Pulmonary and Thoracic: 88606 Tube thoracostomy ([id number]) Pulmonary/Thoracic - Pulmonary and Thoracic: 88491 Pleural drainage w/imaging ([id number]) Pulmonary/Thoracic - Pulmonary and Thoracic: 80127 Lyse chest fibrin initial day ([id number]) [facility] [place] Procedure Codes (Charges) Pulmonary/Thoracic Procedure 1: Pulmonary and Thoracic: 40454 Tube thoracostomy Procedure 2: Pulmonary and Thoracic: 31393 Pleural drainage w/imaging Procedure 3: Pulmonary and Thoracic: 80043 Lyse chest fibrin initial day
[2020-08-12 20:47] LABS: Glucose Pleural Fluid 83 mg/dl
[2020-08-12 21:08] LABS: Albumin Level 1.8 gm/dl (3.4-5.0); Bilirubin,Total 0.3 mg/dl (0.2-1); Total Protein 6.5 gm/dl (6.4-8.2)
[2020-08-12 21:37] LABS: Amylase Pleural Fluid 22 U/L; LDH Pleural Fluid 725 U/L; Total Protein Pleural Fluid 3.6 g/dl
[2020-08-12] MEDS: ACETAMINOPHEN 500 MG TAB PO PRN (21:55)
[2020-08-12] MEDS: SIMVASTATIN 20 MG TAB PO SCH (21:56)
[2020-08-12] MEDS: TAMSULOSIN HCL 0.4 MG CAP PO SCH (21:56)
[2020-08-12] MEDS: ALTEPLASE, RECOMBINANT 10 MG in SYRINGE 50 ML IPL SCH (21:57)
[2020-08-12 22:38] LABS: Appearance Pleural Fluid CLEAR; Basophils, Fluid 2 %; Color Pleural Fluid YELLOW; Eosinophils, Fluid 0 %; Lymphocytes, Fluid 86 %; Mono,Macrophage,Mesothelial 6 %; Neutrophils, Fluid 6 %; RBC Pleural Fluid (A) < 3000 /uL; Source Pleural Fluid RIGHT LUNG; WBC Pleural Fluid (A) 15 /uL
[2020-08-12] MEDS ORDERED: LIDOCAINE HCL 1% 20 ML VIAL SQ ONE (22:40)
[2020-08-12] MEDS: DORNASE ALFA 5 ML in SYRINGE 25 ML IPL SCH (23:17)
[2020-08-13] MEDS ORDERED: traMADol HCL 50 MG TABLET PO STA (02:05)
[2020-08-13] MEDS: ACETAMINOPHEN 500 MG TAB PO PRN ×2 (05:57→19:11)
[2020-08-13] MEDS: LEVOTHYROXINE SODIUM 50 MCG TABLET PO SCH (05:57)
[2020-08-13 06:46] LABS: Hematocrit (blood only) 22.4 % (42-52); Hemoglobin 7.3 g/dL (14.0-18.0); Mean Corpuscular Hemoglobin 33.6 pg (25-34); Mean Corpuscular Hgb Conc 32.6 g/dL (32-36); Mean Corpuscular Volume 103.2 fL (80-100); Mean Platelet Volume 9.4 fL (7.4-10.4); Platelet Count 350 K/uL (130-400); RDW Coefficient of Variation 16.2 % (11.5-14.5); RDW Standard Deviation 60.6 fL (36.4-46.3); Red Blood Count 2.17 M/uL (4.7-6.1); White Blood Count 5.22 K/uL (4.8-10.8)
--- NOTE | 2020-08-13 06:54 | XRay Report ---
XR chest 1V portable CLINICAL HISTORY: Chest tube placement COMPARISON STUDY: 07/25/2020 FINDINGS: The heart is enlarged. There is a right-sided pigtail pleural catheter. There is a hiatal h ernia. There are bilateral pleural effusions. There is diffuse haziness of the right hemithorax which may be secondary to a posteriorly layering pleural effusion. There is bibasilar atelectasis/consolid ation. No pneumothorax is visualized.[ IMPRESSION: 1. Interval placement of a right-sided pigtail pleural drainage catheter 2. Bilateral pleural effusions with basilar atelectasis/consolidation 3. Diffuse haziness in the right hemithorax possibly secondary to a posteriorly layering effusion. 4. No pneumothorax identified ACT 112: Negative or not required by law. Electronically signed by: Jeff Quinones M.D. 08/13/2020 6:53 AM
[2020-08-13 07:11] LABS: BUN Creatinine Ratio 10.8 (10-20); Calcium 8.3 mg/dl (8.5-10.1); Creatinine Clr Calc Pharmacy 68.1 ml/min; Est GFR (African American) 56.2; Est GFR (Non-African American) 48.5; Magnesium 2.2 mg/dl (1.8-2.4); Potassium 3.8 mmol/L (3.5-5.1)
[2020-08-13 07:14] LABS: C Reactive Protein 16.6 mg/dl (0-0.29)
[2020-08-13] MEDS: traMADol HCL 50 MG TABLET PO PRN (09:10)
[2020-08-13] MEDS: METOPROLOL TARTRATE 50 MG TAB PO SCH ×2 (09:11→20:43)
[2020-08-13] MEDS: FOLIC ACID 1 MG TAB PO SCH (09:11)
[2020-08-13] MEDS: HYDROCORTISONE ACETATE 25 MG SUPP PR SCH ×2 (09:11→20:40)
[2020-08-13] MEDS: HEPARIN SOD 5,000 UNIT/0.5 ML VIAL SQ SCH ×2 (09:12→20:45)
[2020-08-13] MEDS: VENLAFAXINE HCL XR 150 MG CAPXR PO SCH (09:12)
[2020-08-13] MEDS: TOPIRAMATE 50 MG TAB PO SCH (09:12)
[2020-08-13] MEDS: carBAMazepine 200 MG TABLET PO SCH ×2 (09:13→20:43)
[2020-08-13] MEDS: ALTEPLASE, RECOMBINANT 10 MG in SYRINGE 50 ML IPL SCH ×2 (10:32→20:33)
[2020-08-13] MEDS: CEFTAROLINE FOSAMIL ACETATE 600 MG in SODIUM CHLORIDE 0.9% 250 ML IV SCH ×2 (10:50→21:51)
[2020-08-13] MEDS ORDERED: FUROSEMIDE 20 MG in SYRINGE 0 ML IV ONE (12:00)
[2020-08-13] MEDS: DORNASE ALFA 5 ML in SYRINGE 25 ML IPL SCH (12:33)
--- NOTE | 2020-08-13 12:37 | Pulmonology Progress Note ---
Date of Service August 13, 2020 Assessment & Plan (1) Pleural effusion: --Bilateral pleural effusion Chest tube placed on 08/12/2020 for parapneumonic pleural effusion. Gram stain from pleural fluid culture negative. pH was 7.26. Glucose was 83. Normal cholesterol is pending. Lymphocytic predominance was noted in the pleural fluid with 86% lymphocytes. We will send ADA on the pleural fluid to evaluate for tuberculosis. AFB cultures are pending. Continue mist [address] chest on day 3. --History of MRSA bacteremia Patient is currently on ceftaroline. --Morbid obesity with probable NEW BiPAP nightly and as needed shortness of breath Keep O2 saturation between 90-92% Please note the above document was generated using voice recognition software. It may contain grammatical, syntax or spelling errors.Any formal questions or concerns about the content, text or information contained within the body of this dictation should be directly addressed to the provider for clarification. (2) MRSA bacteremia: Admission and Anticipated Discharge Date Admission Date: July 21, 2020 Subjective Patient is feeling much less short of breath today. He has some mild tenderness around the chest tube insertion site. He has not been ambulating much. He is very weak and has a difficult time sitting up in the bed. No fevers or chills overnight. Review of Systems Review of Systems: All systems reviewed & are unremarkable except as noted in HPI & below Physical Exam Physical Exam: Constitutional: Mild respiratory distress HEENT: EOMI, PERRLA Respiratory system: Decreased air entry bilaterally, no wheeze, rhonchi, positive crackles bilateral lower lobes CVS: S1-S2 positive, no murmurs or gallops. 2+ pitting edema in lower extremity Abdomen: Soft, nontender, nondistended, positive bowel sounds x4 Extremities: +2 pulses bilaterally radialis/ dorsalis pedis, no cyanosis, +2 edema bilateral lower extremity Neuro: Awake alert oriented x3 Psych: Normal mood and affect G/U: Positive Gardner Skin: no rashes, warm and dry Lymphatic: no cervical or axillary lymphadenopathy Results & Data Results & Data ([facility]) Vital Signs (Past 12 Hours) Vital Signs Temp Pulse Resp BP BP Pulse Ox 08/13/20 07:31 98.1 F 73 20 153/80 H 94 08/13/20 03:52 98.1 F 78 18 167/93 H 96 08/13/20 00:43 73 95 I reviewed the vital signs, labs and chest x-ray. PG Care Time/CCT Total # of Minutes Spent Total Time Spent with Patient: Total time spent is greater than 50% in coordination of care (as documented) at patient's floor/unit and/or counseling patient: Coding Level of Care Code 77798 Subseq Hosp Care Lvl 3 Diagnoses Pleural effusion J90 MRSA bacteremia R78.81; B95.62 Time Spent (min) 26
--- NOTE | 2020-08-13 15:49 | XRay Report ---
XR chest 1V portable CLINICAL HISTORY: Abnormal chest x-ray. Follow-up study COMPARISON STUDY: 08/12/2020 FINDINGS: There is a right-sided pleural pigtail catheter. There is interval decrease in the size of a right pleural effusion. There is improved aeration of the right lung. There is a persistent left pl eural effusion with associated left lower lobe atelectasis/consolidation.[ IMPRESSION: Improving aeration of the right lung. ACT 112: Negative or not required by law. Electronically signed by: Jeff Quinones M.D. 08/13/2020 3:48 PM
--- NOTE | 2020-08-13 17:09 | Hospitalist Progress Note ---
Date of Service August 13, 2020 Assessment & Plan (1) MRSA bacteremia: In blood cultures on admission. CT chest incidentally showed possible thoracic spine involvement. MRI thoracic spine on 07/22 was limited, but showed "non-specific prevertebral soft tissue edema/swelling adjacent to the large anterior osteophytes at the T8-T9 and T10-11 levels." - Started on daptomycin on 07/22 for positive blood cultures. - Stopped dapto and started vancomycin given CT chest on 07/22 indicated possi ble pneumonia. - Started ceftaroline on 07/28 for continued bacteremia - ID recs from 07/26: Continue IV abx x 4 weeks after cleared blood culture (End date of IV abx: 08/27/2020), then likely switch to doxycycline 100 mg PO BID for 4 additional weeks. Follow CBC/BMP/ESR/CRP weekly. - Discussing with ID on 08/03. - Continue vanc + ceftaroline until the sensitivity for ceftaroline returns. If it is sensitive, can stop vancomycin and proceed just with ceftaroline. The continued positivity on vancomycin is considered a treatment failure of vanc. - Can place PICC. - Fever on 08/11. CT scans of c/a/p and hip showed right empyema. Chest tube placed on 08/12. Will also reach out to orthopedics to see if the left hip needs any drainage. (2) Acute renal failure: Baseline Cr ~1.00 - 1.35, eGFR 60 - 75. - Cr on admission was 4.1 with hyaline and granular casts. This points towards dehydration leading to possible ATN. Likely compounded by chlorthalidone, enalapril, and furosemide. - Hold above medications - Nephrology consulted - Agree with current plan. - IV fluids ran until 07/24. - Cr now 1.5. - Also, had urinary retention. Gardner inserted on 07/29. Voiding trial on 08/02 failed, and Gardner re-inserted. Will start tamsulosin as well and can follow up as outpatient with urology. (3) Anemia: Long-standing macrocytic anemia with recent B12/folate in 02/2020 both normal. Baseline hgb ~12-14. - Lowering hgb from admission. Down to 6.6 on 08/06. Got 2 units PRBCs on 08/06. - Gastritis and duodenopathy noted on EGD on 08/07. Hemorrhoids seen on colonoscopy on 08/07. No active bleeding and no indication of recent bleeding. Anusol suppositories started. - Anemia labs on 08/12 showed normal B12/folate. Indicate anemia of chronic disease as cause. Given continued fevers, will hold off on IV iron. (4) HTN (hypertension): Presently BP is 165/80. Was initially hypotensive this admission, due to sepsis. - Restarted metoprolol tartrate on 08/03 -> Better overall. Overall 135 - 165 in the last 24 hours. - Monitor (5) Seizure disorder: Follows with Vee Mcnulty. - Carbamazepine level was 12.0 on admission (upper range of normal) - Reached out to Dr. Rose on 07/31. Restarted at home dose per her recommendations. (6) Paranoid schizophrenia, chronic condition: No presents issues. - Continue topiramate - Restarted venlafaxine on 07/31 as renal function stable. (7) Depression: - As above with schizophrenia (8) HLD (hyperlipidemia): - Restarted statin on 08/01 - Would need to stop if restart daptomycin (9) DVT prophylaxis: Heparin 7,500 units SQ Q12h (weight-based dosing) Admission and Anticipated Discharge Date Admission Date: July 21, 2020 Subjective Had some questions regarding his care and why he's having so much trouble walking. Reports no fevers/chills, chest pain, shortness of breath, abdominal pain, nausea, or vomiting. Physical Exam Constitutional: WD/WN, vitals as above Eyes: EOM intact bilaterally; no conjunctival abnormality ENMT: external ear and nose normal, oropharynx normal Neck: trachea midline, no thyromegaly normal visual inspection Respiratory: normal respiratory effort, lungs clear to auscultation no respiratory distress and no labored breathing Auscultation: no crackles Cardiovascular: RRR, no murmur, no edema Gastrointestinal (Abdomen): Inspection/Auscultation: abdomen normal to inspection; abdomen not distended Musculoskeletal: no cyanosis or clubbing, extremities motor strength 5/5 Skin: no rashes, warm and dry no ulcers and no erythema Neurologic: moves all extremities and awake Psychiatric: Orientation: alert, oriented to person and cooperative Results & Data Results & Data ([place]) Vital Signs (Past 12 Hours) Vital Signs Temp Pulse Resp BP BP Pulse Ox 08/13/20 15:07 37.2 C 87 18 156/84 H 97 08/13/20 07:31 36.7 C 73 20 153/80 H 94 PG Care Time/CCT Total # of Minutes Spent Total Time Spent with Patient: Total time spent is greater than 50% in coordination of care (as documented) at patient's floor/unit and/or counseling patient: Coding Level of Care Code 54175 Subseq Hosp Care Lvl 2 Diagnoses MRSA bacteremia R78.81; B95.62 Acute renal failure N17.9 Anemia D64.9 HTN (hypertension) I10 Seizure disorder G40.909 Paranoid schizophrenia, chronic condition F20.0 Depression F32.9 HLD (hyperlipidemia) E78.5 DVT prophylaxis Z29.9
[2020-08-13] MEDS: TAMSULOSIN HCL 0.4 MG CAP PO SCH (20:43)
[2020-08-13] MEDS: SIMVASTATIN 20 MG TAB PO SCH (20:43)
[2020-08-14] MEDS: DORNASE ALFA 5 ML in SYRINGE 25 ML IPL SCH ×2 (00:17→11:59)
[2020-08-14] MEDS ORDERED: SIMETHICONE 80 MG CHEW PO ONE (02:36)
[2020-08-14] MEDS: LEVOTHYROXINE SODIUM 50 MCG TABLET PO SCH (05:23)
[2020-08-14 06:35] LABS: Hematocrit (blood only) 23.3 % (42-52); Hemoglobin 7.7 g/dL (14.0-18.0); Mean Corpuscular Hemoglobin 33.5 pg (25-34); Mean Corpuscular Volume 101.3 fL (80-100); Mean Platelet Volume 9.5 fL (7.4-10.4); Platelet Count 369 K/uL (130-400); RDW Coefficient of Variation 16.2 % (11.5-14.5); RDW Standard Deviation 60.2 fL (36.4-46.3); White Blood Count 6.31 K/uL (4.8-10.8)
[2020-08-14 07:04] LABS: BUN Creatinine Ratio 10.9 (10-20); Calcium 8.5 mg/dl (8.5-10.1); Creatinine Clr Calc Pharmacy 64.2 ml/min; Est GFR (African American) 52.4; Est GFR (Non-African American) 45.2; Potassium 3.6 mmol/L (3.5-5.1)
[2020-08-14] MEDS: carBAMazepine 200 MG TABLET PO SCH ×2 (09:05→20:40)
[2020-08-14] MEDS: HYDROCORTISONE ACETATE 25 MG SUPP PR SCH ×2 (09:05→20:41)
[2020-08-14] MEDS: VENLAFAXINE HCL XR 150 MG CAPXR PO SCH (09:06)
[2020-08-14] MEDS: HEPARIN SOD 5,000 UNIT/0.5 ML VIAL SQ SCH ×2 (09:06→20:41)
[2020-08-14] MEDS: METOPROLOL TARTRATE 50 MG TAB PO SCH ×2 (09:06→20:40)
[2020-08-14] MEDS: TOPIRAMATE 50 MG TAB PO SCH (09:06)
[2020-08-14] MEDS: CEFTAROLINE FOSAMIL ACETATE 600 MG in SODIUM CHLORIDE 0.9% 250 ML IV SCH ×2 (09:06→21:18)
[2020-08-14] MEDS: FOLIC ACID 1 MG TAB PO SCH (09:06)
[2020-08-14] MEDS: ALTEPLASE, RECOMBINANT 10 MG in SYRINGE 50 ML IPL SCH ×2 (09:47→21:19)
[2020-08-14] MEDS: ACETAMINOPHEN 500 MG TAB PO PRN ×2 (11:00→23:23)
[2020-08-14] MEDS: traMADol HCL 50 MG TABLET PO PRN (13:36)
[2020-08-14] MEDS ORDERED: MoRPHine SULFATE 2 MG/ML CARP IV PRN (16:03)
--- NOTE | 2020-08-14 16:06 | Hospitalist Progress Note ---
Date of Service August 14, 2020 Assessment & Plan (1) MRSA bacteremia: In blood cultures on admission. CT chest incidentally showed possible thoracic spine involvement. MRI thoracic spine on 07/22 was limited, but showed "non-specific prevertebral soft tissue edema/swelling adjacent to the large anterior osteophytes at the T8-T9 and T10-11 levels." - Started on daptomycin on 07/22 for positive blood cultures. - Stopped dapto and started vancomycin given CT chest on 07/22 indicated possi ble pneumonia. - Started ceftaroline on 07/28 for continued bacteremia - ID recs from 07/26: Continue IV abx x 4 weeks after cleared blood culture (End date of IV abx: 08/27/2020), then likely switch to doxycycline 100 mg PO BID for 4 additional weeks. Follow CBC/BMP/ESR/CRP weekly. - Discussed with ID on 08/03. - Continue vanc + ceftaroline until the sensitivity for ceftaroline returns. If it is sensitive, can stop vancomycin and proceed just with ceftaroline. The continued positivity on vancomycin is considered a treatment failure of vanc. - Can place PICC. - Fever on 08/11. CT scans of c/a/p and hip showed right empyema. Chest tube placed on 08/12. Consult orthopedics for left hip. (2) Acute renal failure: Baseline Cr ~1.00 - 1.35, eGFR 60 - 75. - Cr on admission was 4.1 with hyaline and granular casts. This points towards dehydration leading to possible ATN. Likely compounded by chlorthalidone, enalapril, and furosemide. - Hold above medications - Nephrology consulted - Agree with current plan. - IV fluids ran until 07/24. - Cr now 1.6. - Also, had urinary retention. Gardner inserted on 07/29. Voiding trial on 08/02 failed, and Gardner re-inserted. Will start tamsulosin as well and can follow up as outpatient with urology. (3) Anemia: Long-standing macrocytic anemia with recent B12/folate in 02/2020 both normal. Baseline hgb ~12-14. - Lowering hgb from admission. Down to 6.6 on 08/06. Got 2 units PRBCs on 08/06. - Gastritis and duodenopathy noted on EGD on 08/07. Hemorrhoids seen on colonoscopy on 08/07. No active bleeding and no indication of recent bleeding. Anusol suppositories started. - Anemia labs on 08/12 showed normal B12/folate. Indicate anemia of chronic disease as cause. Given continued fevers, will hold off on IV iron. (4) HTN (hypertension): Presently BP is 165/80. Was initially hypotensive this admission, due to sepsis. - Restarted metoprolol tartrate on 08/03 -> Better overall. Overall 135 - 165 in the last 24 hours. - Monitor (5) Seizure disorder: Follows with Vee Mcnulty. - Carbamazepine level was 12.0 on admission (upper range of normal) - Reached out to Dr. Rose on 07/31. Restarted at home dose per her recommendations. (6) Paranoid schizophrenia, chronic condition: No presents issues. - Continue topiramate - Restarted venlafaxine on 07/31 as renal function stable. (7) Depression: - As above with schizophrenia (8) HLD (hyperlipidemia): - Restarted statin on 08/01 - Would need to stop if restart daptomycin (9) DVT prophylaxis: Heparin 7,500 units SQ Q12h (weight-based dosing) Admission and Anticipated Discharge Date Admission Date: July 21, 2020 Subjective Some right shoulder pain and pain at the insertion site. Otherwise, no major issues. Reports no fevers/chills, chest pain, shortness of breath, abdominal pain, nausea, or vomiting. Physical Exam Constitutional: WD/WN, vitals as above Eyes: EOM intact bilaterally; no conjunctival abnormality ENMT: external ear and nose normal, oropharynx normal Neck: trachea midline, no thyromegaly normal visual inspection Respiratory: normal respiratory effort, lungs clear to auscultation no respiratory distress and no labored breathing Auscultation: no crackles Right chest tube Cardiovascular: RRR, no murmur, no edema Gastrointestinal (Abdomen): Inspection/Auscultation: abdomen normal to inspection; abdomen not distended Musculoskeletal: no cyanosis or clubbing, extremities motor strength 5/5 Skin: no rashes, warm and dry no ulcers and no erythema Neurologic: moves all extremities and awake Psychiatric: Orientation: alert, oriented to person and cooperative Results & Data Results & Data ([facility]) Vital Signs (Past 12 Hours) Vital Signs Temp Pulse Resp BP Pulse Ox 08/14/20 07:11 37.2 C 86 16 139/71 98 PG Care Time/CCT Total # of Minutes Spent Total Time Spent with Patient: Total time spent is greater than 50% in coordination of care (as documented) at patient's floor/unit and/or counseling patient: Coding Level of Care Code 30868 Subseq Hosp Care Lvl 2 Diagnoses MRSA bacteremia R78.81; B95.62 Acute renal failure N17.9 Anemia D64.9 HTN (hypertension) I10 Seizure disorder G40.909 Paranoid schizophrenia, chronic condition F20.0 Depression F32.9 HLD (hyperlipidemia) E78.5 DVT prophylaxis Z29.9
--- NOTE | 2020-08-14 16:15 | Pulmonology Progress Note ---
Date of Service August 14, 2020 Assessment & Plan (1) Pleural effusion: --Bilateral pleural effusion Chest tube placed on 08/12/2020 for parapneumonic pleural effusion. Gram stain from pleural fluid culture negative. pH was 7.26. Glucose was 83. Pleural cholesterol is pending. Lymphocytic predominance was noted in the pleural fluid with 86% lymphocytes. Adenosine deaminase from the pleural fluid is pending. I did call the lab to verify. AFB cultures are pending. Continue mist 2 protocol. We will repeat a chest x-ray tomorrow and get a CT of his chest after mist 2 protocol is complete. --History of MRSA bacteremia Patient is currently on ceftaroline. --Morbid obesity with probable NEW BiPAP nightly and as needed shortness of breath Keep O2 saturation between 90-92% Please note the above document was generated using voice recognition software. It may contain grammatical, syntax or spelling errors.Any formal questions or concerns about the content, text or information contained within the body of this dictation should be directly addressed to the provider for clarification. (2) MRSA bacteremia: Admission and Anticipated Discharge Date Admission Date: July 21, 2020 Subjective Patient is lying in bed today. He was concerned that he potentially inadvertently removed his chest tube. He has been having intermittent right shoulder pain. He has received tramadol and NSAIDs with minimal improvement. He denies any chest pain currently. No fevers or chills overnight. He is still draining pleural fluid from the chest tube. He has received 3 doses of TPA dornase since chest tube insertion. Review of Systems Review of Systems: All systems reviewed & are unremarkable except as noted in HPI & below Physical Exam Physical Exam: Constitutional: Mild respiratory distress HEENT: EOMI, PERRLA Respiratory system: Decreased air entry bilaterally, no wheeze, rhonchi, positive crackles bilateral lower lobes. Chest tube and started on the right. CVS: S1-S2 positive, no murmurs or gallops. 2+ pitting edema in lower extremity Abdomen: Soft, nontender, nondistended, positive bowel sounds x4 Extremities: +2 pulses bilaterally radialis/ dorsalis pedis, no cyanosis, +2 edema bilateral lower extremity Neuro: Awake alert oriented x3 Psych: Normal mood and affect G/U: Positive Gardner Skin: no rashes, warm and dry Lymphatic: no cervical or axillary lymphadenopathy Results & Data Results & Data ([facility]) Vital Signs (Past 12 Hours) Vital Signs Temp Pulse Resp BP Pulse Ox 08/14/20 07:11 99.0 F 86 16 139/71 98 I reviewed the vital signs, labs and imaging. PG Care Time/CCT Total # of Minutes Spent Total Time Spent with Patient: Total time spent is greater than 50% in coordination of care (as documented) at patient's floor/unit and/or counseling patient: Coding Level of Care Code 46296 Subseq Hosp Care Lvl 2 Diagnoses Pleural effusion J90 MRSA bacteremia R78.81; B95.62
[2020-08-14] MEDS: ONDANSETRON INJ 2 MG/ML 2 ML VIAL IV PRN (16:17)
--- NOTE | 2020-08-14 16:46 | XRay Report ---
XR chest 1V portable HISTORY: 65 years-old Male Pulled chest tube follow-up study in a patient with pleural effusion and right-sided chest tube COMPARISON: Chest radiograph 08/13/2020 TECHNIQUE: Portable AP view of the chest FINDINGS: Cardiac silhouette is enlarged. Pulmonary vascular congestion with persistent interstitial coarsening . Unchanged positioning of the right-sided chest tube. Trace right and [id number] left pleural effusions are unchanged. There are persistent bibasilar consolidative opacities. No definite pneumot horax. Bones appear grossly intact. IMPRESSION: Stable exam with unchanged positioning of the right-sided chest tube. No pneumothorax. ACT 112: Negative or not required by law. The above report was generated using voice recognition software. It may contain grammatical, syntax o r spelling errors. Electronically signed by: Michel Lind M.D. 08/14/2020 4:44 PM
--- NOTE | 2020-08-14 19:35 | XRay Report ---
XR knee LT 3V HISTORY: 65 years-old Male pain acute left knee pain without reported trauma COMPARISON: Knee radiographs 05/06/2013 TECHNIQUE: 3 views of the left knee FINDINGS: Severe patellofemoral osteoarthritis with lateral tilt of the patella. Mild to moderate lateral with moderate medial compartment osteoarthritis. No acute fracture or dislocation. Mild diffuse soft tissu e prominence. No large joint effusion. IMPRESSION: 1. No acute fracture or dislocation. 2. Tricompartmental osteoarthritis, severe within the patellofemoral joint. ACT 112: Negative or not required by law. The above report was generated using voice recognition software. It may contain grammatical, syntax o r spelling errors. Electronically signed by: Michel Lind M.D. 08/14/2020 7:34 PM
--- NOTE | 2020-08-14 20:19 | Consultation Report ---
DATE OF CONSULTATION: 08/14/2020 HISTORY OF PRESENT ILLNESS: I was consulted to see Renard regarding his left hip. He had fallen about 3 weeks ago. He had difficulty with mobility at that time. He was brought to the hospital where he was admitted with acute renal failure, anemia, leukocytosis, chest pain. He has been in the hospital for 3 weeks. He developed MRSA bacteremia and has been treated for that. The patient has a longstanding history of left hip problems. He has chronic pain there for at least a decade. He is known to have severe arthritis of the left hip. His pain currently is perhaps slightly worse than it has been at baseline. He denies any other significant injury. Sometimes his left ankle hurts. His left knee has been bothering him more. The patient notes that he has difficulty walking. It is difficult to verbalize why this is. He does have some hip pain, but also he feels that his legs are weak. MEDICAL HISTORY: His current medical condition is reviewed and noted. CURRENT MEDICATIONS: Reviewed and noted on the chart as well. ALLERGIES: Noted. IMAGING: CT scan of the left hip is reviewed. There is severe arthritis involving the left hip with joint destruction and bony deformity. There is no fracture and no evidence of bony erosion. Reports are noted. MRI of the thoracic and lumbar spine are reviewed. The lumbar spine MRI is noted. There are findings on the thoracic spine MRI with some fluid accumulation anterior to the mid thoracic vertebrae and abnormal signal within approximately the T9 vertebrae. PHYSICAL EXAMINATION: He is afebrile. Vital signs are stable currently. I have also reviewed his laboratory studies. He is anemic. He has mild renal failure. His C-reactive protein is elevated as is his sed rate. He struggles to do a leg lift on the left. He can easily do it on the right. He has 1-2+ edema of the entire left leg. There is 1+ edema of the right foot and lower leg area. He can lift the right leg. He can flex and extend the hip with normal strength. He can flex and extend the knee and ankle with normal strength. He has weakness of EHL function graded 4/5, which is bilateral. Dorsalis pedis pulses are 1+ and sensation is grossly intact throughout both lower extremities. He can bend the right hip close to 90 and the knee to about 110 degrees. On the left, he struggles to do a leg lift. He can straighten the leg and tighten his quad. There is no bruising or ecchymosis or effusion around the knee. The left leg is nontender to palpation. There is no erythema. He has 5/5 eversion strength of the ankles bilaterally. With the knee flexed to about 20 degrees, he can activate his quad, lift his foot off the bed and hold it there with 5-/5 strength. His knee flexion strength is 5-/5. He cannot really do any hip strengthening because of left hip discomfort. The left leg is sitting in an externally rotated position and as he flexes his knee and hip, the leg tends to externally rotate further. There is minimal rotatory movements in the left hip, which are painful. Cruciate and collaterals are intact in the left knee. He has no knee effusion and there is no knee tenderness. I can palpate the extensor mechanism to be palpably intact without any patella sebastian or patella infera. very limited hip ROM with pain. IMPRESSION: 1. Severe left hip arthritis, chronic. 2. Left knee pain, likely secondary at least in part to his severe left hip arthritis. 3. Ambulatory dysfunction. 4. Thoracic spine abnormality on MRI. PLAN: Obtain plain films of the hip and knee. We will further comment once these were obtained. I think that his left hip pain is likely secondary to his severe arthritis. I do not see anything suggesting any acute process in terms of fracture or infection there at present. Unfortunately, there are probably limited things that can be done for the left hip outside of pain medication. Surgical intervention for his hip would not be indicated at present and an injection of steroids into the hip joint or knee joint would likely not be advisable either. In terms of the knee, we will further evaluate. It appears that his extensor mechanism is intact. He could have arthritis there as well. In regards to his thoracic spine findings, I think it would be advisable to at least have one of the spine surgeons consult on the patient to get their opinion as to what significance, if any this radiographic/MRI findings are, particularly in light of his difficulty ambulating and sepsis/bacteremia. Thank you for the consultation. We will follow up once the x-rays are completed tomorrow. Follow-up of x-rays ordered yesterday. Hip xray show severe OA with flattening of the femoral head, large osteophytes and without fracture. Knee x-rays show severe patellofemoral osteoarthritis. The extensor mechanism appears to be intact. There is no fracture. The reports are noted. No new recommendations. PT OT. Ambulate with walker. Recommend a spine surgery consultation. GABRIELLE
--- NOTE | 2020-08-14 20:30 | XRay Report ---
XR hip LT min 2V HISTORY: 65 years-old Male pain acute left hip pain COMPARISON: Radiographs of the left hip 05/06/2013, CT left hip 08/12/2020 TECHNIQUE: 2 views of the left hip FINDINGS: Severe joint space narrowing with chronic remodeling changes of the left femoral acetabular joint red emonstrated which includes flattening of the femoral head with widening of the femoral head and neck. Pronounced subcortical cystic changes with subchondral sclerosis. Corticated ossifications are again noted surrounding the joint space. No acute fracture or dislocation. Pelvic basin calcifications. IMPRESSION: 1. No acute fracture or dislocation. 2. Chronic severe joint space narrowing of the left hip with remodeling and flattening of the femoral head has mildly worsened from the comparison 2013 exam. Findings are likely labor representative of chroni c osteoarthritis with subchondral collapse. ACT 112: Negative or not required by law. The above report was generated using voice recognition software. It may contain grammatical, syntax o r spelling errors. Electronically signed by: Michel Lind M.D. 08/14/2020 8:28 PM
[2020-08-14] MEDS: TAMSULOSIN HCL 0.4 MG CAP PO SCH (20:40)
[2020-08-14] MEDS: SIMVASTATIN 20 MG TAB PO SCH (20:41)
[2020-08-15] MEDS: DORNASE ALFA 5 ML in SYRINGE 25 ML IPL SCH ×2 (00:21→12:37)
[2020-08-15] MEDS: LEVOTHYROXINE SODIUM 50 MCG TABLET PO SCH (05:37)
[2020-08-15 07:29] LABS: Hematocrit (blood only) 22.7 % (42-52); Hemoglobin 7.5 g/dL (14.0-18.0); Mean Corpuscular Hemoglobin 33.5 pg (25-34); Mean Corpuscular Volume 101.3 fL (80-100); Platelet Count 349 K/uL (130-400); RDW Coefficient of Variation 16.3 % (11.5-14.5); RDW Standard Deviation 60.1 fL (36.4-46.3); Red Blood Count 2.24 M/uL (4.7-6.1); White Blood Count 5.89 K/uL (4.8-10.8)
--- NOTE | 2020-08-15 07:46 | XRay Report ---
XR chest 1V portable CLINICAL HISTORY: follow up pleural effusion COMPARISON STUDY: 08/14/2020 FINDINGS: The heart is enlarged. There is a right-sided pigtail pleural catheter unchanged in positio n. Small effusions are suspected. There is improving aeration of the lung bases. No pneumothorax is v isualized.[ IMPRESSION: 1. Persistent cardiomegaly 2. No change in position of the right-sided pleural catheter 3. Improving aeration of the lung bases ACT 112: Negative or not required by law. Electronically signed by: Jeff Quinones M.D. 08/15/2020 7:45 AM
[2020-08-15 08:07] LABS: BUN Creatinine Ratio 12.5 (10-20); Calcium 8.3 mg/dl (8.5-10.1); Creatinine Clr Calc Pharmacy 68.1 ml/min; Est GFR (African American) 56.2; Est GFR (Non-African American) 48.5; Magnesium 2.1 mg/dl (1.8-2.4); Potassium 3.8 mmol/L (3.5-5.1)
[2020-08-15] MEDS: HYDROCORTISONE ACETATE 25 MG SUPP PR SCH ×2 (09:58→21:26)
[2020-08-15] MEDS: carBAMazepine 200 MG TABLET PO SCH ×2 (09:59→21:25)
[2020-08-15] MEDS: HEPARIN SOD 5,000 UNIT/0.5 ML VIAL SQ SCH ×2 (09:59→21:24)
[2020-08-15] MEDS: VENLAFAXINE HCL XR 150 MG CAPXR PO SCH (09:59)
[2020-08-15] MEDS: METOPROLOL TARTRATE 50 MG TAB PO SCH ×2 (09:59→21:25)
[2020-08-15] MEDS: FOLIC ACID 1 MG TAB PO SCH (10:00)
[2020-08-15] MEDS: TOPIRAMATE 50 MG TAB PO SCH (10:01)
[2020-08-15] MEDS: CEFTAROLINE FOSAMIL ACETATE 600 MG in SODIUM CHLORIDE 0.9% 250 ML IV SCH ×2 (10:16→21:28)
[2020-08-15] MEDS: ALTEPLASE, RECOMBINANT 10 MG in SYRINGE 50 ML IPL SCH (10:44)
[2020-08-15] MEDS: ACETAMINOPHEN 500 MG TAB PO PRN (11:21)
--- NOTE | 2020-08-15 11:48 | Pulmonology Progress Note ---
Date of Service August 15, 2020 Assessment & Plan (1) Pleural effusion: --Bilateral pleural effusion Chest tube placed on 08/12/2020 for parapneumonic pleural effusion. Gram stain from pleural fluid culture negative. pH was 7.26. Glucose was 83. Pleural cholesterol is pending. Lymphocytic predominance was noted in the pleural fluid with 86% lymphocytes. Adenosine deaminase from the pleural fluid is pending. AFB cultures are pending. Mist 2 protocol to be completed today. CT chest ordered for tomorrow. Likely remove chest tube tomorrow. Will need 4-6 weeks of abx. --History of MRSA bacteremia Patient is currently on ceftaroline. --Morbid obesity with probable NEW BiPAP nightly and as needed shortness of breath (2) MRSA bacteremia: Admission and Anticipated Discharge Date Admission Date: July 21, 2020 Subjective Patient is off supplemental oxygen today. Denies any chest pain. No significant changes otherwise from yesterday. Review of Systems Review of Systems: All systems reviewed & are unremarkable except as noted in HPI & below Physical Exam Physical Exam: Constitutional: Mild respiratory distress HEENT: EOMI, PERRLA Respiratory system: Decreased air entry bilaterally, no wheeze, rhonchi, positive crackles bilateral lower lobes. Chest tube on the right CVS: S1-S2 positive, no murmurs or gallops. 2+ pitting edema in lower extremity Abdomen: Soft, nontender, nondistended, positive bowel sounds x4 Extremities: +2 pulses bilaterally radialis/ dorsalis pedis, no cyanosis, +2 edema bilateral lower extremity Neuro: Awake alert oriented x3 Psych: Normal mood and affect G/U: Positive Gardner Skin: no rashes, warm and dry Lymphatic: no cervical or axillary lymphadenopathy Results & Data Results & Data ([facility]) Vital Signs (Past 12 Hours) Vital Signs Temp Pulse Resp BP Pulse Ox 08/15/20 07:04 98.2 F 88 18 121/71 95 Reviewed vs, labs, imaging. PG Care Time/CCT Total # of Minutes Spent Total Time Spent with Patient: Total time spent is greater than 50% in coordination of care (as documented) at patient's floor/unit and/or counseling patient: Coding Level of Care Code 96291 Subseq Hosp Care Lvl 2 Diagnoses Pleural effusion J90 MRSA bacteremia R78.81; B95.62
[2020-08-15] MEDS: TAMSULOSIN HCL 0.4 MG CAP PO SCH (21:25)
[2020-08-15] MEDS: SIMVASTATIN 20 MG TAB PO SCH (21:26)
--- NOTE | 2020-08-15 22:14 | Hospitalist Progress Note ---
Date of Service August 15, 2020 Assessment & Plan (1) MRSA bacteremia: In blood cultures on admission. CT chest incidentally showed possible thoracic spine involvement. MRI thoracic spine on 07/22 was limited, but showed "non-specific prevertebral soft tissue edema/swelling adjacent to the large anterior osteophytes at the T8-T9 and T10-11 levels." - Started on daptomycin on 07/22 for positive blood cultures. - Stopped dapto and started vancomycin given CT chest on 07/22 indicated possi ble pneumonia. - Started ceftaroline on 07/28 for continued bacteremia - ID recs from 07/26: Continue IV abx x 4 weeks after cleared blood culture (End date of IV abx: 08/27/2020), then likely switch to doxycycline 100 mg PO BID for 4 additional weeks. Follow CBC/BMP/ESR/CRP weekly. - Discussed with ID on 08/03. - Continue vanc + ceftaroline until the sensitivity for ceftaroline returns. If it is sensitive, can stop vancomycin and proceed just with ceftaroline. The continued positivity on vancomycin is considered a treatment failure of vanc. - Can place PICC. - Fever on 08/11. CT scans of c/a/p and hip showed right hip effusion. Chest tube placed on 08/12. Consulted orthopedics for left hip. No indication of procedure ir sign of infection as pr ortho. (2) Acute renal failure: Baseline Cr ~1.00 - 1.35, eGFR 60 - 75. - Cr on admission was 4.1 with hyaline and granular casts. This points towards dehydration leading to possible ATN. Likely compounded by chlorthalidone, enalapril, and furosemide. - Hold above medications - Nephrology consulted - Agree with current plan. - IV fluids ran until 07/24. - Cr now 1.6. - Also, had urinary retention. Gardner inserted on 07/29. Voiding trial on 08/02 failed, and Gardner re-inserted. Will start tamsulosin as well and can follow up as outpatient with urology. (3) Anemia: Long-standing macrocytic anemia with recent B12/folate in 02/2020 both normal. Baseline hgb ~12-14. - Lowering hgb from admission. Down to 6.6 on 08/06. Got 2 units PRBCs on 08/06. - Gastritis and duodenopathy noted on EGD on 08/07. Hemorrhoids seen on colonoscopy on 08/07. No active bleeding and no indication of recent bleeding. Anusol suppositories started. - Anemia labs on 08/12 showed normal B12/folate. Indicate anemia of chronic disease as cause. Given continued fevers, will hold off on IV iron. -Afebrile today (4) HTN (hypertension): Presently BP is 165/80. Was initially hypotensive this admission, due to sepsis. - Restarted metoprolol tartrate on 08/03 -> Better overall. Overall 135 - 165 in the last 24 hours. - Monitor (5) Seizure disorder: Follows with Vee Mcnulty. - Carbamazepine level was 12.0 on admission (upper range of normal) - Reached out to Dr. Rose on 07/31. Restarted at home dose per her recommendations. (6) Paranoid schizophrenia, chronic condition: No presents issues. - Continue topiramate - Restarted venlafaxine on 07/31 as renal function stable. (7) Depression: - As above with schizophrenia (8) HLD (hyperlipidemia): - Restarted statin on 08/01 - Would need to stop if restart daptomycin (9) DVT prophylaxis: Heparin 7,500 units SQ Q12h (weight-based dosing) Admission and Anticipated Discharge Date Admission Date: July 21, 2020 Subjective Patient reports feeling well. He has no new complaints at this time. Review of Systems Review of Systems: All systems reviewed & are unremarkable except as noted in HPI & below Physical Exam Physical Exam: Constitutional: WD/WN, vitals as above Eyes: EOM intact bilaterally; no conjunctival abnormality ENMT: external ear and nose normal, oropharynx normal Neck: trachea midline, no thyromegaly normal visual inspection Respiratory: normal respiratory effort, lungs clear to auscultation no respiratory distress and no labored breathing Auscultation: no crackles Cardiovascular: RRR, no murmur, no edema Gastrointestinal (Abdomen): Inspection/Auscultation: abdomen normal to inspection; abdomen not distended Musculoskeletal: no cyanosis or clubbing, extremities motor strength 5/5 Skin: no rashes, warm and dry no ulcers and no erythema Neurologic: moves all extremities and awake Psychiatric: Orientation: alert, oriented to person and cooperative Results & Data Results & Data ([place]) Vital Signs (Past 12 Hours) Vital Signs Temp Pulse Resp BP Pulse Ox 08/15/20 20:28 37.3 C 81 18 149/75 H 92 08/15/20 15:33 36.7 C 81 18 134/78 99 PG Care Time/CCT Total # of Minutes Spent Total Time Spent with Patient: Total time spent is greater than 50% in coordination of care (as documented) at patient's floor/unit and/or counseling patient: Coding Level of Care Code 09602 Subseq Hosp Care Lvl 3 Diagnoses MRSA bacteremia R78.81; B95.62 Acute renal failure N17.9 Anemia D64.9 HTN (hypertension) I10 Seizure disorder G40.909 Paranoid schizophrenia, chronic condition F20.0 Depression F32.9 HLD (hyperlipidemia) E78.5 DVT prophylaxis Z29.9 Time Spent (min) 35
[2020-08-16] MEDS: LEVOTHYROXINE SODIUM 50 MCG TABLET PO SCH (06:18)
[2020-08-16] MEDS: VENLAFAXINE HCL XR 150 MG CAPXR PO SCH (08:25)
[2020-08-16] MEDS: FOLIC ACID 1 MG TAB PO SCH (08:25)
[2020-08-16] MEDS: TOPIRAMATE 50 MG TAB PO SCH (08:25)
[2020-08-16] MEDS: carBAMazepine 200 MG TABLET PO SCH ×2 (08:26→20:22)
[2020-08-16] MEDS: METOPROLOL TARTRATE 50 MG TAB PO SCH ×2 (08:27→20:21)
[2020-08-16] MEDS: HEPARIN SOD 5,000 UNIT/0.5 ML VIAL SQ SCH ×2 (08:29→20:20)
[2020-08-16] MEDS: HYDROCORTISONE ACETATE 25 MG SUPP PR SCH ×2 (08:30→20:19)
--- NOTE | 2020-08-16 09:39 | CT Scan Report ---
CT chest diagnostic wo con CT DOSE: 662.99 mGycm HISTORY: Follow-up pleural effusion. TECHNIQUE: Multiaxial CT images of the chest were performed without contrast. A dose lowering techni que was utilized adhering to the principles of ALARA. COMPARISON: Chest CT 08/12/2020. FINDINGS: Right pleural pigtail catheter seen within the right posterior lung base. Decrease in size in the small right hydropneumothorax. Small left pleural effusion persists. No mediastinal or left hi lar lymphadenopathy. Mildly enlarged right hilar lymph nodes remain unchanged. Trace pericardial effu thomas, unchanged. The heart is normal in size. Limited views the upper abdomen demonstrate normal live r. Stable splenic hypodensity suggesting an infarct. There is a moderate hiatus hernia containing the proximal stomach. Normal caliber esophagus. Normal caliber thoracic aorta. Moderate calcified plaque within the coronary arteries. Mild body wall edema. No suspicious lytic or blastic osseous lesions. The central airways are patent. Consolidation within the bilateral lower lobes posteriorly favor comp ressive atelectasis from the pleural effusions. Paravertebral edema from the T7-T10 levels is stable to slightly progressed. 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 IMPRESSION: 1. Decrease in size in the small right hydropneumothorax/empyema status post placement of a right bas ilar pleural pigtail catheter. This appears in good position. 2. Stable to slight progression of the T7-T10. Vertebral edema. This nonspecific. An infectious proce ss would be the diagnosis of exclusion. 3. Bibasilar densities are again noted. This favors atelectasis. A pneumonia could also a similar jose earance. 4. Moderate hiatus hernia. 5. Small left pleural effusion, unchanged. 6. Focal hypodensity within the splenic dome remains unchanged. This favors a splenic infarct. ACT 112: Negative or not required by law. Electronically signed by: Andrade Mcfadden M.D. 08/16/2020 9:38 AM
[2020-08-16] MEDS: CEFTAROLINE FOSAMIL ACETATE 600 MG in SODIUM CHLORIDE 0.9% 250 ML IV SCH ×2 (10:30→21:57)
--- NOTE | 2020-08-16 16:03 | Pulmonology Progress Note ---
Date of Service August 16, 2020 Assessment & Plan (1) Pleural effusion: Reviewed the CT chest which demonstrated a small right-sided residual hydropneumothorax. Saturations improved substantially. Etiology of effusions unclear, but given his MRSA bacteremia are certainly concerning for potential empyema. Will increase suction to -40 cm H2O. Will discontinue chest tube once drainage is below 150 mL for 24-hour period. He drained 300 mL over the last 8 hours. He has completed the MIST 2 protocol. Pleural pH was 7.26. Glucose 83. Pleural lymphocyte count of 86%. Adenosine deaminase is pending. Pleural cultures negative to date. Cytology was negative. (2) MRSA bacteremia: (3) Shortness of breath: Admission and Anticipated Discharge Date Admission Date: July 21, 2020 Results & Data Results & Data ([facility]) Vital Signs (Past 12 Hours) Vital Signs Temp Pulse Pulse Resp BP BP Pulse Ox 08/16/20 15:43 98.2 F 81 16 144/75 H 100 08/16/20 07:27 97.7 F 85 16 132/74 97 PG Care Time/CCT Total # of Minutes Spent Total Time Spent with Patient: Total time spent is greater than 50% in coordination of care (as documented) at patient's floor/unit and/or counseling p atient: Coding Level of Care Code 28542 Subseq Hosp Care Lvl 3 Diagnoses Pleural effusion J90 MRSA bacteremia R78.81; B95.62 Shortness of breath R06.02
--- NOTE | 2020-08-16 17:44 | Hospitalist Progress Note ---
Date of Service August 16, 2020 Assessment & Plan (1) MRSA bacteremia: In blood cultures on admission. CT chest incidentally showed possible thoracic spine involvement. MRI thoracic spine on 07/22 was limited, but showed "non-specific prevertebral soft tissue edema/swelling adjacent to the large anterior osteophytes at the T8-T9 and T10-11 levels." - Started on daptomycin on 07/22 for positive blood cultures. - Stopped dapto and started vancomycin given CT chest on 07/22 indicated possi ble pneumonia. - Started ceftaroline on 07/28 for continued bacteremia - ID recs from 07/26: Continue IV abx x 4 weeks after cleared blood culture (End date of IV abx: 08/27/2020), then likely switch to doxycycline 100 mg PO BID for 4 additional weeks. Follow CBC/BMP/ESR/CRP weekly. - Discussed with ID on 08/03. - Continue ceftaroline. As sensitivity came back sensitive to ceftaroline. - Can place PICC. - Fever on 08/11. CT scans of c/a/p and hip showed right hip effusion. Chest tube placed on 08/12. Consulted orthopedics for left hip. No indication of procedure or sign of infection as pr ortho. -will continue with chest tube. concerned over empyema. (2) Acute renal failure: Baseline Cr ~1.00 - 1.35, eGFR 60 - 75. - Cr on admission was 4.1 with hyaline and granular casts. This points towards dehydration leading to possible ATN. Likely compounded by chlorthalidone, enalapril, and furosemide. - Hold above medications - Nephrology consulted - Agree with current plan. - IV fluids ran until 07/24. - Cr now 1.6. - Also, had urinary retention. Gardner inserted on 07/29. Voiding trial on 08/02 failed, and Gardner re-inserted. Will start tamsulosin as well and can follow up as outpatient with urology. (3) Anemia: Long-standing macrocytic anemia with recent B12/folate in 02/2020 both normal. Baseline hgb ~12-14. - Lowering hgb from admission. Down to 6.6 on 08/06. Got 2 units PRBCs on 08/06. - Gastritis and duodenopathy noted on EGD on 08/07. Hemorrhoids seen on colonoscopy on 08/07. No active bleeding and no indication of recent bleeding. Anusol suppositories started. - Anemia labs on 08/12 showed normal B12/folate. Indicate anemia of chronic disease as cause. Given continued fevers, will hold off on IV iron. -Afebrile today (4) HTN (hypertension): Presently BP is 165/80. Was initially hypotensive this admission, due to sepsis. - Restarted metoprolol tartrate on 08/03 -> Better overall. - Monitor (5) Seizure disorder: Follows with Vee Mcnulty. - Carbamazepine level was 12.0 on admission (upper range of normal) - Reached out to Dr. Rose on 07/31. Restarted at home dose per her recommendations. (6) Paranoid schizophrenia, chronic condition: No presents issues. - Continue topiramate - Restarted venlafaxine on 07/31 as renal function stable. (7) Depression: - As above with schizophrenia (8) HLD (hyperlipidemia): - Restarted statin on 08/01 - Would need to stop if restart daptomycin (9) DVT prophylaxis: Heparin 7,500 units SQ Q12h (weight-based dosing) Admission and Anticipated Discharge Date Admission Date: July 21, 2020 Subjective Patient reports feeling well. He has no new complaints at this time. Review of Systems Review of Systems: All systems reviewed & are unremarkable except as noted in HPI & below Physical Exam Physical Exam: Constitutional: WD/WN, vitals as above Eyes: EOM intact bilaterally; no conjunctival abnormality ENMT: external ear and nose normal, oropharynx normal Neck: trachea midline, no thyromegaly normal visual inspection Respiratory: normal respiratory effort, lungs clear to auscultation no respiratory distress and no labored breathing Auscultation: no crackles Cardiovascular: RRR, no murmur, no edema Gastrointestinal (Abdomen): Inspection/Auscultation: abdomen normal to inspection; abdomen not distended Musculoskeletal: no cyanosis or clubbing, extremities motor strength 5/5 Skin: no rashes, warm and dry no ulcers and no erythema Neurologic: moves all extremities and awake Psychiatric: Orientation: alert, oriented to person and cooperative Results & Data Results & Data ([facility]) Vital Signs (Past 12 Hours) Vital Signs Temp Pulse Pulse Resp BP BP Pulse Ox 08/16/20 15:43 36.8 C 81 16 144/75 H 100 08/16/20 07:27 36.5 C 85 16 132/74 97 PG Care Time/CCT Total # of Minutes Spent Total Time Spent with Patient: Total time spent is greater than 50% in coordination of care (as documented) at patient's floor/unit and/or counseling patient: Coding Level of Care Code 35028 Subseq Hosp Care Lvl 2 Diagnoses MRSA bacteremia R78.81; B95.62 Acute renal failure N17.9 Anemia D64.9 HTN (hypertension) I10 Seizure disorder G40.909 Paranoid schizophrenia, chronic condition F20.0 Depression F32.9 HLD (hyperlipidemia) E78.5 DVT prophylaxis Z29.9
[2020-08-16] MEDS: TAMSULOSIN HCL 0.4 MG CAP PO SCH (20:19)
[2020-08-16] MEDS: SIMVASTATIN 20 MG TAB PO SCH (20:23)
[2020-08-17] MEDS: LEVOTHYROXINE SODIUM 50 MCG TABLET PO SCH (05:30)
[2020-08-17] MEDS: VENLAFAXINE HCL XR 150 MG CAPXR PO SCH (08:33)
[2020-08-17] MEDS: FOLIC ACID 1 MG TAB PO SCH (08:33)
[2020-08-17] MEDS: HEPARIN SOD 5,000 UNIT/0.5 ML VIAL SQ SCH ×2 (08:34→21:32)
[2020-08-17] MEDS: carBAMazepine 200 MG TABLET PO SCH ×2 (08:35→21:37)
[2020-08-17] MEDS: TOPIRAMATE 50 MG TAB PO SCH (08:36)
[2020-08-17] MEDS: METOPROLOL TARTRATE 50 MG TAB PO SCH ×2 (08:36→21:36)
[2020-08-17] MEDS: CEFTAROLINE FOSAMIL ACETATE 600 MG in SODIUM CHLORIDE 0.9% 250 ML IV SCH ×2 (10:27→21:05)
[2020-08-17] MEDS: HYDROCORTISONE ACETATE 25 MG SUPP PR SCH ×2 (10:28→21:13)
[2020-08-17] MEDS: traMADol HCL 50 MG TABLET PO PRN (13:30)
--- NOTE | 2020-08-17 13:46 | Procedure Note ---
Procedure Note Date of Service August 17, 2020 Supervising Physician Co-Signing Physician Notes Only approximately 20 mL of fluid was seen in the Yessi drainage box over the last 24 hours. The 14 Haitian pigtail catheter was removed at bedside with no issues. Sutures were removed as well. Sterile 4 x 4 gauze was placed over the site and tape was placed over the gauze. Please leave tape and gauze on for the next 24 hours. Please call me if there are any issues with increasing shortness of breath or hypoxia. Coding CPT Codes Pulmonary/Thoracic - Pulmonary and Thoracic: 01046 Remove lung catheter ([id number]) [facility] Procedure Codes (Charges) Pulmonary/Thoracic Procedure 4: Pulmonary and Thoracic: 03186 Remove lung catheter
--- NOTE | 2020-08-17 14:14 | Pulmonology Progress Note ---
Date of Service August 17, 2020 Assessment & Plan (1) Pleural effusion: Right-sided pigtail catheter removed on 08/17/2020. Minimal fluid output in the last 24 hours. Etiology of effusion is unclear, but given his MRSA bacteremia there is certainly a concern for potential empyema. We will obtain a repeat chest x-ray on Thursday. Pleural pH was 7.26. Glucose 83. Pleural lymphocyte count of 86%. Adenosine deaminase is pending. Pleural cultures negative to date. Cytology was negative . (2) MRSA bacteremia: (3) Shortness of breath: Admission and Anticipated Discharge Date Admission Date: July 21, 2020 Subjective Patient laying in bed. No significant changes from yesterday. Having some soreness in his right chest Review of Systems Review of Systems: All systems reviewed & are unremarkable except as noted in HPI & below Physical Exam Physical Exam: Constitutional: Mild respiratory distress HEENT: EOMI, PERRLA Respiratory system: Decreased air entry bilaterally, no wheeze, rhonchi, positive crackles bilateral lower lobes. Chest tube on the right CVS: S1-S2 positive, no murmurs or gallops. 2+ pitting edema in lower extremity Abdomen: Soft, nontender, nondistended, positive bowel sounds x4 Extremities: +2 pulses bilaterally radialis/ dorsalis pedis, no cyanosis, +2 edema bilateral lower extremity Neuro: Awake alert oriented x3 Psych: Normal mood and affect G/U: Positive Gardner Results & Data Results & Data ([facility]) Vital Signs (Past 12 Hours) Vital Signs Temp Pulse Resp BP Pulse Ox 08/17/20 07:10 97.7 F 92 H 16 163/79 H 90 PG Care Time/CCT Total # of Minutes Spent Total Time Spent with Patient: Total time spent is greater than 50% in coordination of care (as documented) at patient's floor/unit and/or counseling patient: Coding Level of Care Code 09319 Subseq Hosp Care Lvl 3 Diagnoses Pleural effusion J90 MRSA bacteremia R78.81; B95.62 Shortness of breath R06.02
[2020-08-17] MEDS: ACETAMINOPHEN 500 MG TAB PO PRN ×2 (15:39→23:40)
--- NOTE | 2020-08-17 18:34 | Hospitalist Progress Note ---
Date of Service August 17, 2020 Assessment & Plan (1) MRSA bacteremia: In blood cultures on admission. CT chest incidentally showed possible thoracic spine involvement. MRI thoracic spine on 07/22 was limited, but showed "non-specific prevertebral soft tissue edema/swelling adjacent to the large anterior osteophytes at the T8-T9 and T10-11 levels." - Started on daptomycin on 07/22 for positive blood cultures. - Stopped dapto and started vancomycin given CT chest on 07/22 indicated possi ble pneumonia. - Started ceftaroline on 07/28 for continued bacteremia - ID recs from 07/26: Continue IV abx x 4 weeks after cleared blood culture (End date of IV abx: 08/27/2020), then likely switch to doxycycline 100 mg PO BID for 4 additional weeks. Follow CBC/BMP/ESR/CRP weekly. - Discussed with ID on 08/03. - Continue ceftaroline. As sensitivity came back sensitive to ceftaroline. - Can place PICC. - Fever on 08/11. CT scans of c/a/p and hip showed right hip effusion. Chest tube placed on 08/12. Consulted orthopedics for left hip. No fever since. No indication of procedure or sign of infection as pr ortho. -removed chest tube on 08/17 Pleural pH was 7.26. Glucose 83. Pleural lymphocyte count of 86%. Adenosine deaminase is pending. Pleural cultures negative to date. Cytology was negative. (2) Acute renal failure: Baseline Cr ~1.00 - 1.35, eGFR 60 - 75. - Cr on admission was 4.1 with hyaline and granular casts. This points towards dehydration leading to possible ATN. Likely compounded by chlorthalidone, enalapril, and furosemide. - Hold above medications - Nephrology consulted - Agree with current plan. - IV fluids ran until 07/24. - Cr now 1.5. - Also, had urinary retention. Gardner inserted on 07/29. Voiding trial on 08/02 failed, and Gardner re-inserted. Will start tamsulosin as well and can follow up as outpatient with urology. (3) Anemia: Long-standing macrocytic anemia with recent B12/folate in 02/2020 both normal. Baseline hgb ~12-14. - Lowering hgb from admission. Down to 6.6 on 08/06. Got 2 units PRBCs on 08/06. - Gastritis and duodenopathy noted on EGD on 08/07. Hemorrhoids seen on colonoscopy on 08/07. No active bleeding and no indication of recent bleeding. Anusol suppositories started. - Anemia labs on 08/12 showed normal B12/folate. Indicate anemia of chronic disease as cause. Given continued fevers, will hold off on IV iron. -Afebrile today (4) HTN (hypertension): Presently BP is 165/80. Was initially hypotensive this admission, due to sepsis. - Restarted metoprolol tartrate on 08/03 -> Better overall. - Monitor (5) Seizure disorder: Follows with Vee Mcnulty. - Carbamazepine level was 12.0 on admission (upper range of normal) - Reached out to Dr. Rose on 07/31. Restarted at home dose per her recommendations. (6) Paranoid schizophrenia, chronic condition: No presents issues. - Continue topiramate - Restarted venlafaxine on 07/31 as renal function stable. (7) Depression: - As above with schizophrenia (8) HLD (hyperlipidemia): - Restarted statin on 08/01 - Would need to stop if restart daptomycin (9) DVT prophylaxis: Heparin 7,500 units SQ Q12h (weight-based dosing) Admission and Anticipated Discharge Date Admission Date: July 21, 2020 Subjective Patient reports that he is feeling well. He has no new complaints. Review of Systems Review of Systems: All systems reviewed & are unremarkable except as noted in HPI & below Physical Exam Physical Exam: Constitutional: WD/WN, vitals as above Eyes: EOM intact bilaterally; no conjunctival abnormality ENMT: external ear and nose normal, oropharynx normal Neck: trachea midline, no thyromegaly normal visual inspection Respiratory: normal respiratory effort, lungs clear to auscultation no respiratory distress and no labored breathing Auscultation: no crackles Cardiovascular: RRR, no murmur, no edema Gastrointestinal (Abdomen): Inspection/Auscultation: abdomen normal to inspection; abdomen not distended Musculoskeletal: no cyanosis or clubbing, extremities motor strength 5/5 Skin: no rashes, warm and dry no ulcers and no erythema Neurologic: moves all extremities and awake Psychiatric: Orientation: alert, oriented to person and cooperative Results & Data Results & Data ([facility]) Vital Signs (Past 12 Hours) Vital Signs Temp Pulse Pulse Resp BP BP Pulse Ox 08/17/20 15:53 36.8 C 82 20 147/79 H 96 08/17/20 07:10 36.5 C 92 H 16 163/79 H 90 PG Care Time/CCT Total # of Minutes Spent Total Time Spent with Patient: Total time spent is greater than 50% in co ordination of care (as documented) at patient's floor/unit and/or counseling patient: Coding Level of Care Code 17424 Subseq Hosp Care Lvl 2 Diagnoses MRSA bacteremia R78.81; B95.62 Acute renal failure N17.9 Anemia D64.9 HTN (hypertension) I10 Seizure disorder G40.909 Paranoid schizophrenia, chronic condition F20.0 Depression F32.9 HLD (hyperlipidemia) E78.5 DVT prophylaxis Z29.9 Time Spent (min) 25
[2020-08-17] MEDS: TAMSULOSIN HCL 0.4 MG CAP PO SCH (21:36)
[2020-08-17] MEDS: SIMVASTATIN 20 MG TAB PO SCH (21:37)
[2020-08-18] MEDS: traMADol HCL 50 MG TABLET PO PRN (03:56)
[2020-08-18] MEDS: LEVOTHYROXINE SODIUM 50 MCG TABLET PO SCH (04:27)
[2020-08-18] MEDS: FOLIC ACID 1 MG TAB PO SCH (08:23)
[2020-08-18] MEDS: HEPARIN SOD 5,000 UNIT/0.5 ML VIAL SQ SCH ×2 (08:24→21:06)
[2020-08-18] MEDS: METOPROLOL TARTRATE 50 MG TAB PO SCH ×2 (08:35→21:06)
[2020-08-18] MEDS: carBAMazepine 200 MG TABLET PO SCH ×2 (08:35→21:06)
[2020-08-18] MEDS: VENLAFAXINE HCL XR 150 MG CAPXR PO SCH (08:36)
[2020-08-18] MEDS: TOPIRAMATE 50 MG TAB PO SCH (08:36)
[2020-08-18] MEDS: HYDROCORTISONE ACETATE 25 MG SUPP PR SCH ×2 (08:46→21:07)
[2020-08-18] MEDS: CEFTAROLINE FOSAMIL ACETATE 600 MG in SODIUM CHLORIDE 0.9% 250 ML IV SCH ×2 (09:45→21:07)
--- NOTE | 2020-08-18 11:00 | Hospitalist Progress Note ---
Date of Service August 18, 2020 Assessment & Plan (1) MRSA bacteremia: In blood cultures on admission. CT chest incidentally showed possible thoracic spine involvement. MRI thoracic spine on 07/22 was limited, but showed "non-specific prevertebral soft tissue edema/swelling adjacent to the large anterior osteophytes at the T8-T9 and T10-11 levels." - Started on daptomycin on 07/22 for positive blood cultures. - Stopped dapto and started vancomycin given CT chest on 07/22 indicated possi ble pneumonia. - Started ceftaroline on 07/28 for continued bacteremia - ID recs from 07/26: Continue IV abx x 4 weeks after cleared blood culture (End date of IV abx: 08/27/2020), then likely switch to doxycycline 100 mg PO BID for 4 additional weeks. Follow CBC/BMP/ESR/CRP weekly. - Discussed with ID on 08/03. - Continue ceftaroline. As sensitivity came back sensitive to ceftaroline. - Can place PICC. - Fever on 08/11. CT scans of c/a/p and hip showed right hip effusion. Chest tube placed on 08/12. Consulted orthopedics for left hip. No fever since. No indication of procedure or sign of infection as pr ortho. -removed chest tube on 08/17 Pleural pH was 7.26. Glucose 83. Pleural lymphocyte count of 86%. Adenosine deaminase is pending. Pleural cultures negative to date. Cytology was negative. Patient is not agreeable to LTAC in [place]. Will continue to monitor, continue antibiotics until 08/27/2020 (2) Acute renal failure: Baseline Cr ~1.00 - 1.35, eGFR 60 - 75. - Cr on admission was 4.1 with hyaline and granular casts. This points towards dehydration leading to possible ATN. Likely compounded by chlorthalidone, enalapril, and furosemide. - Hold above medications - Nephrology consulted - Agree with current plan. - IV fluids ran until 07/24. - Cr now 1.5. - Also, had urinary retention. Gardner inserted on 07/29. Voiding trial on 08/02 failed, and Gardner re-inserted. Will start tamsulosin as well and can follow up as outpatient with urology. (3) Anemia: Long-standing macrocytic anemia with recent B12/folate in 02/2020 both normal. Baseline hgb ~12-14. - Lowering hgb from admission. Down to 6.6 on 08/06. Got 2 units PRBCs on 08/06. - Gastritis and duodenopathy noted on EGD on 08/07. Hemorrhoids seen on colonoscopy on 08/07. No active bleeding and no indication of recent bleeding. Anusol suppositories started. - Anemia labs on 08/12 showed normal B12/folate. Indicate anemia of chronic disease as cause. Given continued fevers, will hold off on IV iron. -Afebrile today (4) HTN (hypertension): Presently BP is 165/80. Was initially hypotensive this admission, due to sepsis. - Restarted metoprolol tartrate on 08/03 -> Better overall. - Monitor (5) Seizure disorder: Follows with Vee Mcnulty. - Carbamazepine level was 12.0 on admission (upper range of normal) - Reached out to Dr. Rose on 07/31. Restarted at home dose per her recommendations. (6) Paranoid schizophrenia, chronic condition: No presents issues. - Continue topiramate - Restarted venlafaxine on 07/31 as renal function stable. (7) Depression: - As above with schizophrenia (8) HLD (hyperlipidemia): - Restarted statin on 08/01 - Would need to stop if restart daptomycin (9) DVT prophylaxis: Heparin 7,500 units SQ Q12h (weight-based dosing) Admission and Anticipated Discharge Date Admission Date: July 21, 2020 Subjective Patient reports feeling well. He states he had a small bowel movement yesterday. He denies any nausea, vomiting, diarrhea, fevers. He reports that he is not agreeable to go to [facility] as he wants to be closer to his brother. Review of Systems Review of Systems: All systems reviewed & are unremarkable except as noted in HPI & below Physical Exam Physical Exam: Constitutional: WD/WN, vitals as above Eyes: EOM intact bilaterally; no conjunctival abnormality ENMT: external ear and nose normal, oropharynx normal Neck: trachea midline, no thyromegaly normal visual inspection Respiratory: normal respiratory effort, lungs clear to auscultation no respiratory distress and no labored breathing Auscultation: no crackles Cardiovascular: RRR, no murmur, no edema Gastrointestinal (Abdomen): Inspection/Auscultation: abdomen normal to inspection; abdomen not distended Musculoskeletal: no cyanosis or clubbing, extremities motor strength 5/5 Skin: no rashes, warm and dry no ulcers and no erythema Neurologic: moves all extremities and awake Psychiatric: Orientation: alert, oriented to person and cooperative Results & Data Results & Data ([facility]) Vital Signs (Past 12 Hours) Vital Signs Temp Pulse Resp BP Pulse Ox 08/18/20 07:46 36.8 C 81 16 158/82 H 96 PG Care Time/CCT Total # of Minutes Spent Total Time Spent with Patient: Total time spent is greater than 50% in coordination of care (as documented) at patient's floor/unit and/or counseling patient: Coding Level of Care Code 92946 Subseq Hosp Care Lvl 2 Diagnoses MRSA bacteremia R78.81; B95.62 Acute renal failure N17.9 Anemia D64.9 HTN (hypertension) I10 Seizure disorder G40.909 Paranoid schizophrenia, chronic condition F20.0 Depression F32.9 HLD (hyperlipidemia) E78.5 DVT prophylaxis Z29.9 Time Spent (min) 25
--- NOTE | 2020-08-18 13:33 | Pulmonology Progress Note ---
Date of Service August 18, 2020 Assessment & Plan (1) Pleural effusion: Right-sided pigtail catheter removed on 08/17/2020. I removed the bandage today. The pigtail catheter insertion site wound has healed nicely. I will obtain a follow-up chest x-ray tomorrow morning to evaluate to evaluate for residual pleural effusion. He does have an MRSA bacteremia that is being treated with ceftaroline. He is going to get antibiotics until August 27 per infectious disease recommendations. Pleural pH was 7.26. Glucose 83. Pleural lymphocyte count of 86%. Adenosine deaminase is pending. Pleural cultures negative to date. Cytology was negative. I would recommend increasing his physical therapy and trying to get him out of the bed to a chair. He is very weak and morbidly obese which will unfortunately complicate his recovery. (2) MRSA bacteremia: (3) Shortness of breath: (4) Severe muscle deconditioning: (5) Morbid obesity due to excess calories: Admission and Anticipated Discharge Date Admission Date: July 21, 2020 Subjective Patient feels that his breathing is improved today without the chest tube. He denies any chest pain. He has not been able to get out of his bed today. He has very limited mobility and has weakness in his lower extremities. He denies any fevers or chills. Review of Systems Review of Systems: All systems reviewed & are unremarkable except as noted in HPI & below Physical Exam Constitutional: + obese; no acute distress and not ill appearing Eyes: PERRL, conjunctivae normal, anicteric sclerae ENMT: external ear and nose normal, oropharynx normal Respiratory: Diminished lung sounds at the bilateral bases. Cardiovascular: RRR, no murmur, no edema Gastrointestinal (Abdomen): normal bowel sounds, soft, nontender, no hepatosplenomegaly Musculoskeletal: Decreased mobility and weakness in his lower extremities bilaterally. Skin: I remove the bandage in the right chest wall. The chest tube wound is healed. Neurologic: patellar DTR's 2+ bilat, sensation intact Results & Data Results & Data ([facility]) Vital Signs (Past 12 Hours) Vital Signs Temp Pulse Resp BP Pulse Ox 08/18/20 07:46 98.2 F 81 16 158/82 H 96 I reviewed his vital signs and labs PG Care Time/CCT Total # of Minutes Spent Total Time Spent with Patient: Total time spent is greater than 50% in coordination of care (as documented) at patient's floor/unit and/or counseling patient: Coding Level of Care Code 77643 Subseq Hosp Care Lvl 3 Diagnoses Pleural effusion J90 MRSA bacteremia R78.81; B95.62 Shortness of breath R06.02 Severe muscle deconditioning R29.898 Morbid obesity due to excess calories E66.01
[2020-08-18] MEDS: TAMSULOSIN HCL 0.4 MG CAP PO SCH (21:06)
[2020-08-18] MEDS: SIMVASTATIN 20 MG TAB PO SCH (21:06)
[2020-08-19] MEDS: LEVOTHYROXINE SODIUM 50 MCG TABLET PO SCH (05:12)
[2020-08-19] MEDS: traMADol HCL 50 MG TABLET PO PRN (07:40)
[2020-08-19] MEDS: FOLIC ACID 1 MG TAB PO SCH (07:41)
[2020-08-19] MEDS: HEPARIN SOD 5,000 UNIT/0.5 ML VIAL SQ SCH ×2 (07:43→21:27)
[2020-08-19] MEDS: TOPIRAMATE 50 MG TAB PO SCH (07:48)
[2020-08-19] MEDS: carBAMazepine 200 MG TABLET PO SCH ×2 (07:48→21:27)
[2020-08-19] MEDS: METOPROLOL TARTRATE 50 MG TAB PO SCH ×2 (07:48→21:27)
[2020-08-19] MEDS: HYDROCORTISONE ACETATE 25 MG SUPP PR SCH ×2 (07:49→21:27)
[2020-08-19] MEDS: VENLAFAXINE HCL XR 150 MG CAPXR PO SCH (07:49)
[2020-08-19 08:49] LABS: Hematocrit (blood only) 21.7 % (42-52); Mean Corpuscular Hemoglobin 32.7 pg (25-34); Mean Corpuscular Hgb Conc 32.3 g/dL (32-36); Mean Corpuscular Volume 101.4 fL (80-100); Mean Platelet Volume 8.6 fL (7.4-10.4); Platelet Count 341 K/uL (130-400); RDW Coefficient of Variation 16.6 % (11.5-14.5); RDW Standard Deviation 60.4 fL (36.4-46.3); Red Blood Count 2.14 M/uL (4.7-6.1); White Blood Count 5.65 K/uL (4.8-10.8)
[2020-08-19 09:28] LABS: BUN Creatinine Ratio 11.5 (10-20); Calcium 8.5 mg/dl (8.5-10.1); Creatinine Clr Calc Pharmacy 77.4 ml/min; Est GFR (African American) 65.6; Est GFR (Non-African American) 56.6; Potassium 4.1 mmol/L (3.5-5.1)
[2020-08-19] MEDS: CEFTAROLINE FOSAMIL ACETATE 600 MG in SODIUM CHLORIDE 0.9% 250 ML IV SCH ×2 (10:10→21:28)
--- NOTE | 2020-08-19 11:52 | Pulmonology Progress Note ---
Date of Service August 19, 2020 Assessment & Plan (1) Pleural effusion: Right-sided pigtail catheter removed on 08/17/2020. I removed the bandage today. The patient refused the PA and lateral chest x-ray today. His mobility is very limited. I have ordered for a portable chest x-ray to be completed in the room. If there is no evidence of increasing effusion, then no further pleural procedures will need to be done. Infectious disease is following the patient and recommending ceftaroline until 08/27/2020. Pleural pH was 7.26. Glucose 83. Pleural lymphocyte count of 86%. Adenosine deaminase is pending. Pleural cultures negative to date. Cytology was negative. I would recommend increasing his physical therapy and trying to get him out of the bed to a chair. He is very weak and morbidly obese which will, unfortunately, complicate his recovery. This was discussed with the bedside nurse. (2) MRSA bacteremia: (3) Shortness of breath: (4) Severe muscle deconditioning: (5) Morbid obesity due to excess calories: Admission and Anticipated Discharge Date Admission Date: July 21, 2020 Subjective Patient was sleeping in bed today. He was refusing his chest x-ray today and not wanting to participate in care per bedside nursing. Vital signs of been stable. Review of Systems Review of Systems: Unchanged from yesterday. Physical Exam Constitutional: + obese; no acute distress and not ill appearing Eyes: PERRL, conjunctivae normal, anicteric sclerae ENMT: external ear and nose normal, oropharynx normal Respiratory: Diminished lung sounds at the bilateral bases. Cardiovascular: RRR, no murmur, no edema Gastrointestinal (Abdomen): normal bowel sounds, soft, nontender, no hepatosplenomegaly Musculoskeletal: Decreased mobility and weakness in his lower extremities bilaterally. Skin: no rashes, warm and dry Neurologic: patellar DTR's 2+ bilat, sensation intact Results & Data Results & Data ([facility]) Vital Signs (Past 12 Hours) Vital Signs Temp Pulse Resp BP Pulse Ox 08/19/20 07:21 98.4 F 79 16 156/82 H 94 vital signs labs and imaging reviewed PG Care Time/CCT Total # of Minutes Spent Total Time Spent with Patient: Total time spent is greater than 50% in coordination of care (as documented) at patient's floor/unit and/or counseling patient: Coding Level of Care Code 05555 Subseq Hosp Care Lvl 2 Diagnoses Pleural effusion J90 MRSA bacteremia R78.81; B95.62 Shortness of breath R06.02 Severe muscle deconditioning R29.898 Morbid obesity due to excess calories E66.01
--- NOTE | 2020-08-19 12:40 | XRay Report ---
XR chest 1V portable CLINICAL HISTORY: follow up right effusion COMPARISON STUDY: Chest radiograph August 15, 2020. Chest CT August 16, 2020. FINDINGS: Right basilar pleural pigtail catheter has been removed. There is a small right pleural eff usion. There is no pneumothorax. A small left pleural effusion with left basilar opacity is noted. Th ere is mild right basilar opacity. A hiatal hernia is present. Enlargement of the cardiac silhouette is unchanged. There is pulmonary vascular congestion. A hiatal hernia is present. IMPRESSION: 1. Interval removal of the right basilar pleural pigtail catheter. No change in a small right pleural effusion with mild right basilar opacity. No pneumothorax. Small left pleural effusion with left bas ilar opacity. 2. Increase in interstitial thickening. This favors pulmonary vascular congestion. An infectious proc ess could appear similar. ACT 112: Negative or not required by law. Electronically signed by: Jerardo Moore M.D. 08/19/2020 12:38 PM
--- NOTE | 2020-08-19 20:33 | Hospitalist Progress Note ---
Date of Service August 19, 2020 Assessment & Plan (1) MRSA bacteremia: In blood cultures on admission. CT chest incidentally showed possible thoracic spine involvement. MRI thoracic spine on 07/22 was limited, but showed "non-specific prevertebral soft tissue edema/swelling adjacent to the large anterior osteophytes at the T8-T9 and T10-11 levels." - Started on daptomycin on 07/22 for positive blood cultures. - Stopped dapto and started vancomycin given CT chest on 07/22 indicated possi ble pneumonia. - Started ceftaroline on 07/28 for continued bacteremia - ID recs from 07/26: Continue IV abx x 4 weeks after cleared blood culture (End date of IV abx: 08/27/2020), then likely switch to doxycycline 100 mg PO BID for 4 additional weeks. Follow CBC/BMP/ESR/CRP weekly. - Discussed with ID on 08/03. - Continue ceftaroline. As sensitivity came back sensitive to ceftaroline. - Can place PICC. - Fever on 08/11. CT scans of c/a/p and hip showed right hip effusion. Chest tube placed on 08/12. Consulted orthopedics for left hip. No fever since. No indication of procedure or sign of infection as pr ortho. -removed chest tube on 08/17 Pleural pH was 7.26. Glucose 83. Pleural lymphocyte count of 86%. Adenosine deaminase is pending. Pleural cultures negative to date. Cytology was negative. Patient is not agreeable to LTAC in [place]. Will continue to monitor, continue antibiotics until 08/27/2020 (2) Acute renal failure: Baseline Cr ~1.00 - 1.35, eGFR 60 - 75. - Cr on admission was 4.1 with hyaline and granular casts. This points towards dehydration leading to possible ATN. Likely compounded by chlorthalidone, enalapril, and furosemide. - Hold above medications - Nephrology consulted - Agree with current plan. - IV fluids ran until 07/24. - Cr now 1.3. - Also, had urinary retention. Gardner inserted on 07/29. Voiding trial on 08/02 failed, and Gardner re-inserted. Will continue tamsulosin as well and can follow up as outpatient with urology. (3) Anemia: Long-standing macrocytic anemia with recent B12/folate in 02/2020 both normal. Baseline hgb ~12-14. - Lowering hgb from admission. Down to 6.6 on 08/06. Got 2 units PRBCs on 08/06. - Gastritis and duodenopathy noted on EGD on 08/07. Hemorrhoids seen on colonoscopy on 08/07. No active bleeding and no indication of recent bleeding. Anusol suppositories started. - Anemia labs on 08/12 showed normal B12/folate. Indicate anemia of chronic disease as cause. Given continued fevers, will hold off on IV iron. -Afebrile today (4) HTN (hypertension): Presently BP is 165/80. Was initially hypotensive this admission, due to sepsis. - Restarted metoprolol tartrate on 08/03 -> Better overall. - Monitor (5) Seizure disorder: Follows with Vee Mcnulty. - Carbamazepine level was 12.0 on admission (upper range of normal) - Reached out to Dr. Rose on 07/31. Restarted at home dose per her recommendations. (6) Paranoid schizophrenia, chronic condition: No presents issues. - Continue topiramate - Restarted venlafaxine on 07/31 as renal function stable. (7) Depression: - As above with schizophrenia (8) HLD (hyperlipidemia): - Restarted statin on 08/01 - Would need to stop if restart daptomycin (9) DVT prophylaxis: Heparin 7,500 units SQ Q12h (weight-based dosing) Admission and Anticipated Discharge Date Admission Date: July 21, 2020 Subjective Patient has no new complaints at this time. Review of Systems Review of Systems: All systems reviewed & are unremarkable except as noted in HPI & below Physical Exam Physical Exam: Constitutional: WD/WN, vitals as above Eyes: EOM intact bilaterally; no conjunctival abnormality ENMT: external ear and nose normal, oropharynx normal Neck: trachea midline, no thyromegaly normal visual inspection Respiratory: normal respiratory effort, lungs clear to auscultation no respiratory distress and no labored breathing Auscultation: no crackles Cardiovascular: RRR, no murmur, no edema Gastrointestinal (Abdomen): Inspection/Auscultation: abdomen normal to inspection; abdomen not distended Musculoskeletal: no cyanosis or clubbing, extremities motor strength 5/5 Skin: no rashes, warm and dry no ulcers and no erythema Neurologic: moves all extremities and awake Psychiatric: Orientation: alert, oriented to person and cooperative Results & Data Results & Data ([facility]) Vital Signs (Past 12 Hours) Vital Signs Temp Pulse Resp BP Pulse Ox 08/19/20 15:26 36.8 C 79 18 156/82 H 97 PG Care Time/CCT Total # of Minutes Spent Total Time Spent with Patient: Total time spent is greater than 50% in coordination of care (as documented) at patient's floor/unit and/or counseling patient: Coding Level of Care Code 99995 Subseq Hosp Care Lvl 2 Diagnoses MRSA bacteremia R78.81; B95.62 Acute renal failure N17.9 Anemia D64.9 HTN (hypertension) I10 Seizure disorder G40.909 Paranoid schizophrenia, chronic condition F20.0 Depression F32.9 HLD (hyperlipidemia) E78.5 DVT prophylaxis Z29.9
[2020-08-19] MEDS: SIMVASTATIN 20 MG TAB PO SCH (21:27)
[2020-08-19] MEDS: TAMSULOSIN HCL 0.4 MG CAP PO SCH (21:27)
[2020-08-19] MEDS: ACETAMINOPHEN 500 MG TAB PO PRN (22:45)
[2020-08-20] MEDS: LEVOTHYROXINE SODIUM 50 MCG TABLET PO SCH (05:56)
[2020-08-20] MEDS: VENLAFAXINE HCL XR 150 MG CAPXR PO SCH (08:31)
[2020-08-20] MEDS: METOPROLOL TARTRATE 50 MG TAB PO SCH ×2 (08:31→20:06)
[2020-08-20] MEDS: carBAMazepine 200 MG TABLET PO SCH ×2 (08:31→20:06)
[2020-08-20] MEDS: HEPARIN SOD 5,000 UNIT/0.5 ML VIAL SQ SCH ×2 (08:32→20:06)
[2020-08-20] MEDS: TOPIRAMATE 50 MG TAB PO SCH (08:32)
[2020-08-20] MEDS: FOLIC ACID 1 MG TAB PO SCH (08:32)
[2020-08-20 09:17] LABS: Hematocrit (blood only) 22.3 % (42-52); Hemoglobin 7.3 g/dL (14.0-18.0); Mean Corpuscular Hemoglobin 33.2 pg (25-34); Mean Corpuscular Hgb Conc 32.7 g/dL (32-36); Mean Corpuscular Volume 101.4 fL (80-100); Mean Platelet Volume 8.8 fL (7.4-10.4); Nucleated RBC # (auto) 0.02 K/uL (0-0); Nucleated RBC % (auto) 0.3 %; Platelet Count 340 K/uL (130-400); RDW Standard Deviation 61.9 fL (36.4-46.3); White Blood Count 5.19 K/uL (4.8-10.8)
[2020-08-20] MEDS: HYDROCORTISONE ACETATE 25 MG SUPP PR SCH ×2 (09:28→20:05)
[2020-08-20 09:43] LABS: BUN Creatinine Ratio 9.6 (10-20); Calcium 8.5 mg/dl (8.5-10.1); Creatinine Clr Calc Pharmacy 74.6 ml/min; Est GFR (African American) 62.7; Est GFR (Non-African American) 54.1
[2020-08-20] MEDS: CEFTAROLINE FOSAMIL ACETATE 600 MG in SODIUM CHLORIDE 0.9% 250 ML IV SCH ×2 (10:46→21:42)
--- NOTE | 2020-08-20 12:08 | Hospitalist Progress Note ---
Date of Service August 20, 2020 Assessment & Plan (1) MRSA bacteremia: In blood cultures on admission. CT chest incidentally showed possible thoracic spine involvement. MRI thoracic spine on 07/22 was limited, but showed "non-specific prevertebral soft tissue edema/swelling adjacent to the large anterior osteophytes at the T8-T9 and T10-11 levels." - Started on daptomycin on 07/22 for positive blood cultures. - Stopped dapto and started vancomycin given CT chest on 07/22 indicated possi ble pneumonia. - Started ceftaroline on 07/28 for continued bacteremia - ID recs from 07/26: Continue IV abx x 4 weeks after cleared blood culture (End date of IV abx: 08/27/2020), then likely switch to doxycycline 100 mg PO BID for 4 additional weeks. Follow CBC/BMP/ESR/CRP weekly. - Discussed with ID on 08/03. - Fever on 08/11. CT scans of c/a/p and hip showed right empyema. Chest tube placed on 08/12. Consult orthopedics for left hip. - Will reach out to ID today regarding if empyema lengths his duration of IV abx. Consulted ortho-spine per prior orthopedics consult. Was not done that I see. (2) Acute renal failure: Baseline Cr ~1.00 - 1.35, eGFR 60 - 75. - Cr on admission was 4.1 with hyaline and granular casts. This points towards dehydration leading to possible ATN. Likely compounded by chlorthalidone, enalapril, and furosemide. - Hold above medications - Nephrology consulted - Agree with current plan. - IV fluids ran until 07/24. - Cr now 1.4. - Also, had urinary retention. Gardner inserted on 07/29. Voiding trial on 08/02 failed, and Gardner re-inserted. Will start tamsulosin as well and can follow up as outpatient with urology. (3) Anemia: Long-standing macrocytic anemia with recent B12/folate in 02/2020 both normal. Baseline hgb ~12-14. - Lowering hgb from admission. Down to 6.6 on 08/06. Got 2 units PRBCs on 08/06. - Gastritis and duodenopathy noted on EGD on 08/07. Hemorrhoids seen on colonoscopy on 08/07. No active bleeding and no indication of recent bleeding. Anusol suppositories started. - Anemia labs on 08/12 showed normal B12/folate. Indicate anemia of chronic disease as cause. Given continued fevers, will hold off on IV iron. (4) HTN (hypertension): Presently BP is 165/85. Was initially hypotensive this admission, due to sepsis. - Restarted metoprolol tartrate on 08/03 -> Better overall. Overall 135 - 165 in the last 24 hours. - Monitor (5) Seizure disorder: Follows with Vee Mcnulty. - Carbamazepine level was 12.0 on admission (upper range of normal) - Reached out to Dr. Rose on 07/31. Restarted at home dose per her recommendations. (6) Paranoid schizophrenia, chronic condition: No presents issues. - Continue topiramate - Restarted venlafaxine on 07/31 as renal function stable. (7) Depression: - As above with schizophrenia (8) HLD (hyperlipidemia): - Restarted statin on 08/01 - Would need to stop if restart daptomycin (9) DVT prophylaxis: Heparin 7,500 units SQ Q12h (weight-based dosing) Admission and Anticipated Discharge Date Admission Date: July 21, 2020 Subjective No major issues today. He is overall doing well. Chest tube is out which has reduced his pain. Reports no fevers/chills, chest pain, shortness of breath, abdominal pain, nausea, or vomiting. Physical Exam Constitutional: WD/WN, vitals as above Eyes: EOM intact bilaterally; no conjunctival abnormality ENMT: external ear and nose normal, oropharynx normal Neck: trachea midline, no thyromegaly normal visual inspection Respiratory: normal respiratory effort, lungs clear to auscultation no respiratory distress and no labored breathing Auscultation: no crackles Cardiovascular: RRR, no murmur, no edema Gastrointestinal (Abdomen): Inspection/Auscultation: abdomen normal to inspection; abdomen not distended Musculoskeletal: no cyanosis or clubbing, extremities motor strength 5/5 Skin: no rashes, warm and dry no ulcers and no erythema Neurologic: moves all extremities and awake Psychiatric: Orientation: alert, oriented to person and cooperative Results & Data Results & Data ([facility]) Vital Signs (Past 12 Hours) Vital Signs Temp Pulse Resp BP Pulse Ox 08/20/20 07:24 37.1 C 86 16 163/85 H 97 PG Care Time/CCT Total # of Minutes Spent Total Time Spent with Patient: Total time spent is greater than 50% in coordination of care (as documented) at patient's floor/unit and/or counseling patient: Coding Level of Care Code 11523 Subseq Hosp Care Lvl 3 Diagnoses MRSA bacteremia R78.81; B95.62 Acute renal failure N17.9 Anemia D64.9 HTN (hypertension) I10 Seizure disorder G40.909 Paranoid schizophrenia, chronic condition F20.0 Depression F32.9 HLD (hyperlipidemia) E78.5 DVT prophylaxis Z29.9
--- NOTE | 2020-08-20 15:00 | Pulmonology Progress Note ---
Date of Service August 20, 2020 Assessment & Plan (1) Pleural effusion: CT chest 08/12/2020 personally reviewed: Bilateral pleural effusion, right- sided pleural effusion has air pockets in it as well as pleural thickening. Bedside ultrasound 08/12/2020 shows loculations on the right-sided pleural effusion. --Right-sided parapneumonic effusion Thickening of pleura appreciated on the right side with air in the pleural cavity S/p chest tube placement 08/12/2020, chest tube removed 08/17/2020 s/p mist 2 protocol. Culture from the fluid have been negative till date Pleural pH was 7.26. Glucose 83. Pleural lymphocyte count of 86%. Cytology was negative. Continue with incentive spirometry. --History of MRSA bacteremia Patient is on antibiotics as per ID Patient does have PFO intra-atrial with small right to left shunt --Morbid obesity with probable NEW BiPAP nightly and as needed shortness of breath Polysomnography as an outpatient. Keep O2 saturation between 90-92% Plan: Incentive spirometry PT OT Continue with diuretics to keep the patient negative balance. Chest x-ray in the morning. Please note the above document was generated using voice recognition software. It may contain grammatical, syntax or spelling errors.Any formal questions or concerns about the content, text or information contained within the body of this dictation should be directly addressed to the provider for clarification. (2) Shortness of breath: (3) Morbid obesity due to excess calories: Admission and Anticipated Discharge Date Admission Date: July 21, 2020 Subjective Patient seen and examined at bedside. No acute distress, no adverse events overnight. States that the shortness of breath has improved. Denies any chest pain. Good appetite. No nausea vomiting. Patient has started to do physical therapy and move around. Denies any cough Review of Systems Review of Systems: All systems reviewed & are unremarkable except as noted in Subjective Physical Exam 2 Physical Exam: Constitutional: Mild respiratory distress HEENT: EOMI, PERRLA Respiratory system: Decreased air entry bilaterally, no wheeze, rhonchi, positive crackles bilateral lower lobes CVS: S1-S2 positive, no murmurs or gallops Abdomen: Soft, nontender, nondistended, positive bowel sounds x4 Extremities: +2 pulses bilaterally radialis/ dorsalis pedis, no cyanosis, +2 edema bilateral lower extremity Neuro: Awake alert oriented x3 Psych: Normal mood and affect Skin: no rashes, warm and dry Lymphatic: no cervical or axillary lymphadenopathy Results & Data Results & Data ([facility]) Vital Signs (Past 12 Hours) Vital Signs Temp Pulse Resp BP Pulse Ox 08/20/20 07:24 37.1 C 86 16 163/85 H 97 08/20/20 08:58 08/20/20 08:58 PG Care Time/CCT Total # of Minutes Spent Total Time Spent with Patient: Total time spent is greater than 50% in coordination of care (as documented) at patient's floor/unit and/or counseling patient: Coding Level of Care Code 08447 Subseq Hosp Care Lvl 3 Diagnoses Pleural effusion J90 Shortness of breath R06.02 Morbid obesity due to excess calories E66.01
--- NOTE | 2020-08-20 15:13 | Magnetic Resonance Report ---
MR thoracic spine wo con HISTORY: 65 years-old Male rule out infection acute mid back pain without known injury. Follow-up st udy in a patient with prevertebral edema at T8-T9 and T10-T11 COMPARISON: Chest CT 08/16/2020, MRI thoracic spine 07/22/2020 TECHNIQUE: Multiplanar multisequence MRI of the thoracic spine was obtained without the use of IV con trast. FINDINGS: Epidural lipomatosis of the lower lumbar spine is noted on the biometric screener localizer images. Cardiomegaly w ith loculated right hydropneumothorax with septations and pleural thickening. Small left pleural effu thomas. Right lung base consolidation. Motion degraded exam. Multilevel degenerative changes of the cervical spine with bone marrow edema at C5-C6, likely on a de generative basis. There is progressively worsened bone marrow edema at the T8-T9 level with edema als o noted within the intervertebral disc space. Mild bone marrow edema is noted at the T7, T9, T10 and T11 levels. Progressively worsened paravertebral edema is again noted at T7-T11. Loculated T2 hyperin tense collections measuring up to 2.0 cm noted within the paravertebral tissues as noted on image 27 series 13. Additionally, there is a small intradural fluid collection centered at T8-T9 which measure s 4.1 cm in length by 4 mm in AP dimension. Additionally, at T7-T8 and T8-T9 central disc protrusions are noted with spondylitic spurring and facet arthrosis. There is mild central canal stenosis at T8- T9 with moderate bilateral foraminal narrowing. IMPRESSION: 1. Findings suggestive of acute discitis/osteomyelitis centered at the T8-T9 level with progressively worsened bone marrow, intervertebral disc space and paravertebral edema as detailed above. 2. Small fluid collections within the paravertebral tissues measuring up to 2.0 cm are suggestive of abscesses. Small anterior epidural abscess at T8-T9 measures up to 4.1 x 0.4 cm. 3. Right-sided hydropneumothorax with empyema and small left pleural effusion redemonstrated. 4. No acute fracture or subluxation. ACT 112: Negative or not required by law. The above report was generated using voice recognition software. It may contain grammatical, syntax o r spelling errors. Electronically signed by: Michel Lind M.D. 08/20/2020 3:12 PM
[2020-08-20] MEDS: TAMSULOSIN HCL 0.4 MG CAP PO SCH (20:06)
[2020-08-20] MEDS: SIMVASTATIN 20 MG TAB PO SCH (20:06)
--- NOTE | 2020-08-21 07:28 | XRay Report ---
XR chest 1V portable CLINICAL HISTORY: f/u COMPARISON STUDY: Chest CT August 08, 2020. Chest radiograph August 19, 2020. FINDINGS: Cardiomegaly is unchanged. Small bilateral pleural effusions are noted. Left basilar opacit y persists. There is no pneumothorax. Pulmonary vascular congestion has slightly improved. IMPRESSION: 1. Persistent small bilateral pleural effusions and associated bibasilar and midlung opacities which may reflect atelectasis or consolidation. 2. Interval improvement in pulmonary vascular congestion. 3. Cardiomegaly. ACT 112: Negative or not required by law. Electronically signed by: Jerardo Moore M.D. 08/21/2020 7:27 AM
[2020-08-21] MEDS: carBAMazepine 200 MG TABLET PO SCH ×2 (08:48→21:07)
[2020-08-21] MEDS: VENLAFAXINE HCL XR 150 MG CAPXR PO SCH (08:48)
[2020-08-21] MEDS: METOPROLOL TARTRATE 50 MG TAB PO SCH ×2 (08:48→21:08)
[2020-08-21] MEDS: HEPARIN SOD 5,000 UNIT/0.5 ML VIAL SQ SCH ×2 (08:48→21:08)
[2020-08-21] MEDS: HYDROCORTISONE ACETATE 25 MG SUPP PR SCH ×2 (08:49→21:08)
--- NOTE | 2020-08-21 10:24 | Orthopedic Consultation ---
Date of Consultation August 21, 2020 Assessment & Plan (1) Thoracic abscess: At this time he is multiple medical issues questionable neurologic compromise that may have been pre-existing. Did not appreciate any significant cord compression or any evidence of myelomalacia. In this case would continue recommend IV antibiotics with a follow-up MRI in approximately 4 weeks. Present on Admission?: Yes History of Present Illness Reason for Consultation: Thoracic back pain Attending Physician: Jonn Bowman MD History of Present Illness This is a 65 old male who presents with multiple medical issues bacteremia. MRI of the thoracic line does demonstrate evidence of a T8-T9 discitis with small anterior thoracic epidural abscess. Did not appreciate any significant cord compromise. Patient does note that he has had a decline in his ability to ambulate for well over 4 weeks. He denies any numbness or tingling into the lower extremities. He is does describe generalized weakness. He typically uses a cane to ambulate. Allergies Allergy/AdvReac Type Severity Reaction Status Date / Time loxapine AdvReac Mild restless Verified 07/22/20 16:46 and nervous morphine AdvReac Mild nausea/vomi Verified 07/22/20 16:46 ting Home Medications Medication Instructions Recorded Confirmed Type cholecalciferol (vitamin D3) 2,000 unit PO QAM 01/13/19 07/21/20 History [Vitamin D3] levothyroxine 50 mcg PO QAM 01/13/19 07/21/20 History mtcwhawhrdjg-beaplaba-jybsnn 1 tab PO QAM 01/13/19 07/21/20 History [Multivitamin 50 Plus] simvastatin 20 mg PO HS 01/13/19 07/21/20 History venlafaxine 150 mg PO QAM 01/13/19 07/21/20 History chlorthalidone 25 mg PO DAILY 07/21/20 07/21/20 History enalapril maleate 20 mg PO BID 07/21/20 07/21/20 History folic acid 1 mg PO DAILY 07/21/20 07/21/20 History furosemide 20 mg PO BID 07/21/20 07/21/20 History metoprolol tartrate 100 mg PO BID 07/21/20 07/21/20 History topiramate 50 mg PO DAILY 07/21/20 07/21/20 History carbamazepine [Tegretol] 600 mg PO BID 07/31/20 07/31/20 History Patient History Medical History (Updated 08/21/20 @ 10:24 by Jarrett Gibbs, DO) OCTAVIO (acute kidney injury) Anemia Anxiety Depression GERD (gastroesophageal reflux disease) Hyperlipidemia Hypertension Hypothyroidism Morbid obesity due to excess calories MRSA bacteremia Obesity Osteoarthritis of hip Paranoid schizophrenia, chronic condition Seizure disorder last was 2002--on tegretol, follows with Dr. Vee Mcnulty Severe muscle deconditioning Shortness of breath Vitamin D deficiency Surgical History History of appendectomy History of cholecystectomy History of colonoscopy History of umbilical hernia repair History of wisdom tooth extraction Family History Father Family history of diabetes mellitus Mother Family history of diabetes mellitus Brother Family history of diabetes mellitus Other No family history of adverse response to anesthesia Social History Smoking Status: Never smoker Second Hand Exposure: Yes (mom smoked); Hx Alcohol Use: Yes Alcohol type: other Hx Substance Use: No Preferred Language: Bengali Communication Ability: Effective 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 He exhibits reasonable plantar flexion dorsiflexion quadriceps are intact on the right with some limitation on the left. Results & Data ([facility]) Vital Signs (Past 12 Hours) Vital Signs Temp Pulse Resp BP Pulse Ox 08/21/20 07:40 37.1 C 91 H 20 154/74 H 98 08/20/20 22:52 37.5 C 83 18 142/75 H 92
[2020-08-21] MEDS: CEFTAROLINE FOSAMIL ACETATE 600 MG in SODIUM CHLORIDE 0.9% 250 ML IV SCH ×2 (10:41→21:21)
[2020-08-21] MEDS: MAGNESIUM HYDROXIDE SUSP 30 ML UDC PO PRN (10:41)
[2020-08-21] MEDS: traMADol HCL 50 MG TABLET PO PRN (10:41)
[2020-08-21] MEDS ORDERED: MAGNESIUM HYDROXIDE SUSP 30 ML UDC PO PRN (10:49)
--- NOTE | 2020-08-21 14:14 | Pulmonology Progress Note ---
Date of Service August 21, 2020 Assessment & Plan (1) Pleural effusion: CT chest 08/12/2020 personally reviewed: Bilateral pleural effusion, right- sided pleural effusion has air pockets in it as well as pleural thickening. Bedside ultrasound 08/12/2020 shows loculations on the right-sided pleural effusion. --Right-sided parapneumonic effusion Thickening of pleura appreciated on the right side with air in the pleural cavity S/p chest tube placement 08/12/2020, chest tube removed 08/17/2020 s/p mist 2 protocol. Culture from the fluid have been negative till date Pleural pH was 7.26. Glucose 83. Pleural lymphocyte count of 86%. Cytology was negative. Continue with incentive spirometry. --History of MRSA bacteremia Patient is on antibiotics as per ID Patient does have PFO intra-atrial with small right to left shunt --Morbid obesity with probable NEW BiPAP nightly and as needed shortness of breath Polysomnography as an outpatient. Keep O2 saturation between 90-92% Plan: Chest x-ray from today does not show any reaccumulation of fluid on the right side. Aggressive incentive spirometry Aggressive PT OT Continue with diuretics to keep the patient negative balance. Recommend discontinuing Gardner catheter. No further recommendations from pulmonary perspective. Please recall if needed. Please note the above document was generated using voice recognition software. It may contain grammatical, syntax or spelling errors.Any formal questions or concerns about the content, text or information contained within the body of this dictation should be directly addressed to the provider for clarification. (2) Shortness of breath: (3) Morbid obesity due to excess calories: Admission and Anticipated Discharge Date Admission Date: July 21, 2020 Subjective Patient seen and examined at bedside. No acute distress, no adverse events overnight. He states that he has been feeling well when it comes to his breathing. Denies any chest pain. Has been using incentive spirometry. Physical therapy has been seeing the patient. Review of Systems Review of Systems: All systems reviewed & are unremarkable except as noted in Subjective Physical Exam Physical Exam: Constitutional: No acute distress HEENT: EOMI, PERRLA Respiratory system: Decreased air entry bilaterally, no wheeze, rhonchi, positive crackles bilateral lower lobes CVS: S1-S2 positive, no murmurs or gallops Abdomen: Soft, nontender, nondistended, positive bowel sounds x4 Extremities: +2 pulses bilaterally radialis/ dorsalis pedis, no cyanosis, +1 edema bilateral lower extremity Neuro: Awake alert oriented x3 Psych: Normal mood and affect G/U: Positive Gardner Skin: no rashes, warm and dry Lymphatic: no cervical or axillary lymphadenopathy Results & Data Results & Data ([facility]) Vital Signs (Past 12 Hours) Vital Signs Temp Pulse Resp BP Pulse Ox 08/21/20 07:40 37.1 C 91 H 20 154/74 H 98 08/20/20 08:58 08/20/20 08:58 PG Care Time/CCT Total # of Minutes Spent Total Time Spent with Patient: Total time spent is greater than 50% in coordination of care (as documented) at patient's floor/unit and/or counseling patient: Coding Level of Care Code 94970 Subseq Hosp Care Lvl 3 Diagnoses Pleural effusion J90 Shortness of breath R06.02 Morbid obesity due to excess calories E66.01
--- NOTE | 2020-08-21 15:05 | Hospitalist Progress Note ---
Date of Service August 21, 2020 Assessment & Plan (1) MRSA bacteremia: In blood cultures on admission. CT chest incidentally showed possible thoracic spine involvement. MRI thoracic spine on 07/22 was limited, but showed "non-specific prevertebral soft tissue edema/swelling adjacent to the large anterior osteophytes at the T8-T9 and T10-11 levels." - Started on daptomycin on 07/22 for positive blood cultures. - Stopped dapto and started vancomycin given CT chest on 07/22 indicated possi ble pneumonia. - Started ceftaroline on 07/28 for continued bacteremia - ID recs from 07/26: Continue IV abx x 4 weeks after cleared blood culture (End date of IV abx: 08/27/2020), then likely switch to doxycycline 100 mg PO BID for 4 additional weeks. Follow CBC/BMP/ESR/CRP weekly. - Discussed with ID on 08/03. - Fever on 08/11. CT scans of c/a/p and hip showed right empyema. Chest tube placed on 08/12. Consult orthopedics for left hip. - Consulted ortho-spine per prior orthopedics consult. Discussed with Dr. Gibbs. Non-operative management at this time. Repeat thoracic MRI in 4 weeks (~09/16/2020). Will reach out to ID re: change in IV abx duration. (2) Acute renal failure: Baseline Cr ~1.00 - 1.35, eGFR 60 - 75. - Cr on admission was 4.1 with hyaline and granular casts. This points towards dehydration leading to possible ATN. Likely compounded by chlorthalidone, enalapril, and furosemide. - Hold above medications - Nephrology consulted - Agree with current plan. - IV fluids ran until 07/24. - Cr now 1.4. - Also, had urinary retention. Gardner inserted on 07/29. Voiding trial on 08/02 failed, and Gardner re-inserted. Started tamsulosin as well and can follow up as outpatient with urology. (3) Anemia: Long-standing macrocytic anemia with recent B12/folate in 02/2020 both normal. Baseline hgb ~12-14. - Lowering hgb from admission. Down to 6.6 on 08/06. Got 2 units PRBCs on 08/06. - Gastritis and duodenopathy noted on EGD on 08/07. Hemorrhoids seen on colonoscopy on 08/07. No active bleeding and no indication of recent bleeding. Anusol suppositories started. - Anemia labs on 08/12 showed normal B12/folate. Indicate anemia of chronic disease as cause. Given continued fevers, will hold off on IV iron. (4) HTN (hypertension): Presently BP is 165/85. Was initially hypotensive this admission, due to sepsis. - Restarted metoprolol tartrate on 08/03 -> Better overall. Overall 135 - 165 in the last 24 hours. - Monitor (5) Seizure disorder: Follows with Vee Mcnulty. - Carbamazepine level was 12.0 on admission (upper range of normal) - Reached out to Dr. Rose on 07/31. Restarted at home dose per her recommendations. (6) Paranoid schizophrenia, chronic condition: No presents issues. - Continue topiramate - Restarted venlafaxine on 07/31 as renal function stable. (7) Depression: - As above with schizophrenia - More depressed today due to life and health circumstances. (8) HLD (hyperlipidemia): - Restarted statin on 08/01 - Would need to stop if restart daptomycin (9) DVT prophylaxis: Heparin 7,500 units SQ Q12h (weight-based dosing) Admission and Anticipated Discharge Date Admission Date: July 21, 2020 Subjective Feeling tired and also discouraged today. He is frustrated because he feels like his body is telling him to rest, but we keep telling him to get up and move. Reports no fevers/chills, chest pain, shortness of breath, abdominal pain, nausea, or vomiting. Physical Exam Constitutional: WD/WN, vitals as above Eyes: EOM intact bilaterally; no conjunctival abnormality ENMT: external ear and nose normal, oropharynx normal Neck: trachea midline, no thyromegaly normal visual inspection Respiratory: normal respiratory effort, lungs clear to auscultation no respiratory distress and no labored breathing Auscultation: no crackles Cardiovascular: RRR, no murmur, no edema Gastrointestinal (Abdomen): Inspection/Auscultation: abdomen normal to inspection; abdomen not distended Musculoskeletal: no cyanosis or clubbing, extremities motor strength 5/5 Skin: no rashes, warm and dry no ulcers and no erythema Neurologic: moves all extremities and awake Psychiatric: Orientation: alert, oriented to person and cooperative Results & Data Results & Data ([facility]) Vital Signs (Past 12 Hours) Vital Signs Temp Pulse Resp BP Pulse Ox 08/21/20 07:40 37.1 C 91 H 20 154/74 H 98 PG Care Time/CCT Total # of Minutes Spent Total Time Spent with Patient: Total time spent is greater than 50% in coordination of care (as documented) at patient's floor/unit and/or counseling patient: Coding Level of Care Code 53858 Subseq Hosp Care Lvl 2 Diagnoses MRSA bacteremia R78.81; B95.62 Acute renal failure N17.9 Anemia D64.9 HTN (hypertension) I10 Seizure disorder G40.909 Paranoid schizophrenia, chronic condition F20.0 Depression F32.9 HLD (hyperlipidemia) E78.5 DVT prophylaxis Z29.9
[2020-08-21] MEDS: SIMVASTATIN 20 MG TAB PO SCH (21:07)
[2020-08-21] MEDS: TAMSULOSIN HCL 0.4 MG CAP PO SCH (21:08)
[2020-08-22] MEDS: traMADol HCL 50 MG TABLET PO PRN ×2 (06:03→23:47)
[2020-08-22 07:23] LABS: Hematocrit (blood only) 20.7 % (42-52); Hemoglobin 6.7 g/dL (14.0-18.0); Mean Corpuscular Hemoglobin 32.5 pg (25-34); Mean Corpuscular Hgb Conc 32.4 g/dL (32-36); Mean Corpuscular Volume 100.5 fL (80-100); Mean Platelet Volume 9.2 fL (7.4-10.4); Platelet Count 387 K/uL (130-400); RDW Coefficient of Variation 17.2 % (11.5-14.5); RDW Standard Deviation 62.6 fL (36.4-46.3); Red Blood Count 2.06 M/uL (4.7-6.1); White Blood Count 4.74 K/uL (4.8-10.8)
[2020-08-22 07:35] LABS: Albumin Level 2.1 gm/dl (3.4-5.0); BUN Creatinine Ratio 10.7 (10-20); Calcium 8.1 mg/dl (8.5-10.1); Creatinine Clr Calc Pharmacy 81.1 ml/min; Est GFR (African American) 69.4; Est GFR (Non-African American) 59.9; Magnesium 2.2 mg/dl (1.8-2.4)
[2020-08-22 07:38] LABS: Albumin Globulin Ratio 0.5 (0.9-2); Bilirubin,Total 0.3 mg/dl (0.2-1); Globulin 4.6 gm/dl (2.5-4.0); Total Protein 6.7 gm/dl (6.4-8.2)
[2020-08-22] MEDS: METOPROLOL TARTRATE 50 MG TAB PO SCH ×2 (08:11→22:08)
[2020-08-22] MEDS: HEPARIN SOD 5,000 UNIT/0.5 ML VIAL SQ SCH ×2 (08:11→22:10)
[2020-08-22] MEDS: VENLAFAXINE HCL XR 150 MG CAPXR PO SCH (08:11)
[2020-08-22] MEDS: carBAMazepine 200 MG TABLET PO SCH ×2 (08:11→22:09)
[2020-08-22] MEDS: HYDROCORTISONE ACETATE 25 MG SUPP PR SCH ×2 (08:12→22:09)
[2020-08-22] MEDS: CEFTAROLINE FOSAMIL ACETATE 600 MG in SODIUM CHLORIDE 0.9% 250 ML IV SCH ×2 (10:34→22:07)
[2020-08-22] MEDS ORDERED: FUROSEMIDE 40 MG in SYRINGE 0 ML IV ONE (10:55)
[2020-08-22] MEDS ORDERED: SODIUM CHLORIDE 0.9% 250 ML IV PRN (10:55)
--- NOTE | 2020-08-22 13:35 | Hospitalist Progress Note ---
Date of Service August 22, 2020 Assessment & Plan (1) MRSA bacteremia: In blood cultures on admission. CT chest incidentally showed possible thoracic spine involvement. MRI thoracic spine on 07/22 was limited, but showed "non-specific prevertebral soft tissue edema/swelling adjacent to the large anterior osteophytes at the T8-T9 and T10-11 levels." - Started on daptomycin on 07/22 for positive blood cultures. - Stopped dapto and started vancomycin given CT chest on 07/22 indicated possi ble pneumonia. - Started ceftaroline on 07/28 for continued bacteremia - ID recs from 07/26: Continue IV abx x 4 weeks after cleared blood culture (End date of IV abx: 08/27/2020), then likely switch to doxycycline 100 mg PO BID for 4 additional weeks. Follow CBC/BMP/ESR/CRP weekly. - Discussed with ID on 08/03. - Fever on 08/11. CT scans of c/a/p and hip showed right empyema. Chest tube placed on 08/12. Consult orthopedics for left hip. - Consulted ortho-spine per prior orthopedics consult. Discussed with Dr. Gibbs on 08/21. Non-operative management at this time. Repeat thoracic MRI in 4 weeks (~09/16/2020). Discussed with ID. No present change in abx, but unfortunately, he is close to needing a major debridement if thoracic infection cannot be controlled. (2) Acute renal failure: Baseline Cr ~1.00 - 1.35, eGFR 60 - 75. - Cr on admission was 4.1 with hyaline and granular casts. This points towards dehydration leading to possible ATN. Likely compounded by chlorthalidone, enalapril, and furosemide. - Hold above medications - Nephrology consulted - Agree with current plan. - IV fluids ran until 07/24. - Cr now 1.4. - Also, had urinary retention. Gardner inserted on 07/29. Voiding trial on 08/02 failed, and Gardner re-inserted. Started tamsulosin as well and can follow up as outpatient with urology. (3) Anemia: Long-standing macrocytic anemia with recent B12/folate in 02/2020 both normal. Baseline hgb ~12-14. - Lowering hgb from admission. Down to 6.6 on 08/06. Got 2 units PRBCs on 08/06. - Gastritis and duodenopathy noted on EGD on 08/07. Hemorrhoids seen on colonoscopy on 08/07. No active bleeding and no indication of recent bleeding. Anusol suppositories started. - Anemia labs on 08/12 showed normal B12/folate. Indicate anemia of chronic disease as cause. Given continued fevers, will hold off on IV iron. (4) HTN (hypertension): Presently BP is 165/85. Was initially hypotensive this admission, due to sepsis. - Restarted metoprolol tartrate on 08/03 -> Better overall. Overall 135 - 165 in the last 24 hours. - Monitor (5) Seizure disorder: Follows with Vee Mcnulty. - Carbamazepine level was 12.0 on admission (upper range of normal) - Reached out to Dr. Rose on 07/31. Restarted at home dose per her recommendations. (6) Paranoid schizophrenia, chronic condition: No presents issues. - Continue topiramate - Restarted venlafaxine on 07/31 as renal function stable. (7) Depression: - As above with schizophrenia - More depressed today due to life and health circumstances. (8) HLD (hyperlipidemia): - Restarted statin on 08/01 - Would need to stop if restart daptomycin (9) DVT prophylaxis: Heparin 7,500 units SQ Q12h (weight-based dosing) Admission and Anticipated Discharge Date Admission Date: July 21, 2020 Subjective With more thoracic back pain today. Reports no fevers/chills, chest pain, shortness of breath, abdominal pain, nausea, or vomiting. Physical Exam Constitutional: WD/WN, vitals as above Eyes: EOM intact bilaterally; no conjunctival abnormality ENMT: external ear and nose normal, oropharynx normal Neck: trachea midline, no thyromegaly normal visual inspection Respiratory: normal respiratory effort, lungs clear to auscultation no resp iratory distress and no labored breathing Auscultation: no crackles Cardiovascular: RRR, no murmur, no edema Gastrointestinal (Abdomen): Inspection/Auscultation: abdomen normal to inspection; abdomen not distended Musculoskeletal: no cyanosis or clubbing, extremities motor strength 5/5 Skin: no rashes, warm and dry no ulcers and no erythema Neurologic: moves all extremities and awake Psychiatric: Orientation: alert, oriented to person and cooperative Results & Data Results & Data ([facility]) Vital Signs (Past 12 Hours) Vital Signs Temp Pulse Pulse Resp BP Pulse Ox 08/22/20 08:08 36.7 C 90 22 168/80 H 97 08/22/20 08:00 37.2 C 82 18 168/83 H 96 PG Care Time/CCT Total # of Minutes Spent Total Time Spent with Patient: Total time spent is greater than 50% in coordination of care (as documented) at patient's floor/unit and/or counseling patient: Coding Level of Care Code 80437 Subseq Hosp Care Lvl 2 Diagnoses MRSA bacteremia R78.81; B95.62 Acute renal failure N17.9 Anemia D64.9 HTN (hypertension) I10 Seizure disorder G40.909 Paranoid schizophrenia, chronic condition F20.0 Depression F32.9 HLD (hyperlipidemia) E78.5 DVT prophylaxis Z29.9
[2020-08-22] MEDS: SIMVASTATIN 20 MG TAB PO SCH (22:08)
[2020-08-22] MEDS: TAMSULOSIN HCL 0.4 MG CAP PO SCH (22:12)
[2020-08-23 07:07] LABS: Hematocrit (blood only) 23.9 % (42-52); Hemoglobin 7.9 g/dL (14.0-18.0); Mean Corpuscular Hemoglobin 32.6 pg (25-34); Mean Corpuscular Hgb Conc 33.1 g/dL (32-36); Mean Corpuscular Volume 98.8 fL (80-100); Mean Platelet Volume 8.7 fL (7.4-10.4); Platelet Count 356 K/uL (130-400); RDW Standard Deviation 64.8 fL (36.4-46.3); Red Blood Count 2.42 M/uL (4.7-6.1); White Blood Count 4.69 K/uL (4.8-10.8)
[2020-08-23 07:42] LABS: BUN Creatinine Ratio 11.2 (10-20); Calcium 8.3 mg/dl (8.5-10.1); Creatinine Clr Calc Pharmacy 78.6 ml/min; Est GFR (African American) 66.8; Est GFR (Non-African American) 57.7; Potassium 4.1 mmol/L (3.5-5.1)
[2020-08-23] MEDS: VENLAFAXINE HCL XR 150 MG CAPXR PO SCH (08:22)
[2020-08-23] MEDS: METOPROLOL TARTRATE 50 MG TAB PO SCH (08:23)
[2020-08-23] MEDS: HYDROCORTISONE ACETATE 25 MG SUPP PR SCH (08:23)
[2020-08-23] MEDS: carBAMazepine 200 MG TABLET PO SCH (08:23)
[2020-08-23] MEDS: HEPARIN SOD 5,000 UNIT/0.5 ML VIAL SQ SCH (08:24)
[2020-08-23] MEDS: CEFTAROLINE FOSAMIL ACETATE 600 MG in SODIUM CHLORIDE 0.9% 250 ML IV SCH (09:27)
[2020-08-23] MEDS: traMADol HCL 50 MG TABLET PO PRN (15:09)
--- NOTE | 2020-08-23 16:53 | Discharge Summary ---
Date of Service August 23, 2020 Principal Diagnosis MRSA bacteremia Kidney failure Urinary retention Right empyema Thoracic spinal abscess Anemia Discharge Exam Constitutional WD/WN, vitals as above Eyes EOM intact bilaterally; no conjunctival abnormality ENMT external ear and nose normal, oropharynx normal Neck trachea midline, no thyromegaly normal visual inspection Respiratory normal respiratory effort, lungs clear to auscultation no respiratory distress and no labored breathing Auscultation: no crackles Cardiovascular RRR, no murmur, no edema Gastrointestinal (Abdomen) Inspection/Auscultation: abdomen normal to inspection; abdomen not distended Musculoskeletal no cyanosis or clubbing, extremities motor strength 5/5 Skin no rashes, warm and dry no ulcers and no erythema Neurologic moves all extremities and awake Psychiatric Orientation: alert, oriented to person and cooperative Discharge Data Allergies Allergy/AdvReac Type Severity Reaction Status Date / Time loxapine AdvReac Mild restless Verified 07/22/20 16:46 and nervous morphine AdvReac Mild nausea/vomi Verified 07/22/20 16:46 ting Consultations 07/21/20 12:45 ED Decision to Admit Stat 07/22/20 08:25 Consult Infectious Diseases Routine 07/24/20 16:21 Consult Cardiology Routine 08/06/20 10:48 Consult Gastroenterology Routine 08/12/20 18:24 Consult Pulmonology Routine 08/14/20 16:06 Consult Orthopedic Surgery Routine 08/20/20 11:59 Consult Orthopedic Surgery Routine Procedures Performed Operation Date: 07/26/20 11:30 Actual Procedures p Echo Transesophageal - Oscar Lechuga MD s Doppler Echo Limited/Follow Up - Oscar Lechuga MD s Echo Color Flow - Oscar Lechuga MD Operation Date: 08/07/20 16:00 Actual Procedures p Colonoscopy Polypectomy - Junito Olivares MD s EGD Biopsy Cytology - Junito Olivares MD Ordered Studies 07/21/20 11:07 CT abd pelvis wo con Stat 07/22/20 08:24 CT chest diagnostic wo con Urgent 07/22/20 16:51 MR thoracic spine wo con Stat 07/25/20 14:29 MR lumbar spine wo con Urgent 08/12/20 13:06 CT abd pelvis oral and IV con Routine 08/12/20 15:49 CT chest diagnostic w con Routine 08/12/20 15:50 CT hip LT w con Routine 08/12/20 18:35 US point of care ultrasound Urgent 08/16/20 08:45 CT chest diagnostic wo con Routine 08/20/20 13:40 MR thoracic spine wo con Routine Hospital Course (1) MRSA bacteremia: In blood cultures on admission. CT chest incidentally showed possible thoracic spine involvement. MRI thoracic spine on 07/22 was limited, but showed "non-specific prevertebral soft tissue edema/swelling adjacent to the large anterior osteophytes at the T8-T9 and T10-11 levels." - Started on daptomycin on 07/22 for positive blood cultures. - Stopped dapto and started vancomycin given CT chest on 07/22 indicated possible pneumonia. - Started ceftaroline on 07/28 for continued bacteremia - ID recs from 07/26: Continue IV abx x 4 weeks after cleared blood culture (End date of IV abx: 08/27/2020), then likely switch to doxycycline 100 mg PO BID for 4 additional weeks. Follow CBC/BMP/ESR/CRP weekly. - Discussed with ID on 08/03. - Fever on 08/11. CT scans of c/a/p and hip showed right empyema. Chest tube placed on 08/12. Consult orthopedics for left hip. - Consulted ortho-spine per prior orthopedics consult. Discussed with Dr. Gibbs on 08/21. Non-operative management at this time. Repeat thoracic MRI in 4 weeks (~09/16/2020). Discussed with ID. No present change in abx, but unfortunately, he is close to needing a major debridement if thoracic infection cannot be controlled. (2) Acute renal failure: Baseline Cr ~1.00 - 1.35, eGFR 60 - 75. - Cr on admission was 4.1 with hyaline and granular casts. This points towards dehydration leading to possible ATN. Likely compounded by chlorthalidone, enalapril, and furosemide. - Hold above medications - Nephrology consulted - Agree with current plan. - IV fluids ran until 07/24. - Cr now 1.4. - Also, had urinary retention. Gardner inserted on 07/29. Voiding trial on 08/02 failed, and Gardner re-inserted. Started tamsulosin as well and can follow up as outpatient with urology. (3) Anemia: Long-standing macrocytic anemia with recent B12/folate in 02/2020 both normal. Baseline hgb ~12-14. - Lowering hgb from admission. Down to 6.6 on 08/06. Got 2 units PRBCs on 08/06. - Gastritis and duodenopathy noted on EGD on 08/07. Hemorrhoids seen on colonoscopy on 08/07. No active bleeding and no indication of recent bleeding. Anusol suppositories started. - Anemia labs on 08/12 showed normal B12/folate. Indicate anemia of chronic disease as cause. Given continued fevers, will hold off on IV iron. (4) HTN (hypertension): Presently BP is 165/85. Was initially hypotensive this admission, due to sepsis. - Restarted metoprolol tartrate on 08/03 -> Better overall. Overall 135 - 165 in the last 24 hours. - Monitor (5) Seizure disorder: Follows with Vee Mcnulty. - Carbamazepine level was 12.0 on admission (upper range of normal) - Reached out to Dr. Rose on 07/31. Restarted at home dose per her recommendations. (6) Paranoid schizophrenia, chronic condition: No presents issues. - Continue topiramate - Restarted venlafaxine on 07/31 as renal function stable. (7) Depression: - As above with schizophrenia - More depressed today due to life and health circumstances. (8) HLD (hyperlipidemia): - Restarted statin on 08/01 - Would need to stop if restart daptomycin (9) DVT prophylaxis: Heparin 7,500 units SQ Q12h (weight-based dosing) Total Time Total Time Spent Total Time Spent (In Minutes): 35 Discharge Plan Discharge Items Patient Disposition: Transfer Inpatient Rehab Fac Reason For Visit: ACUTE RENAL FAILURE Discharge Diagnosis: MRSA bacteremia Empyema Concern for spinal infection Condition on Discharge: Fair Activity: Resume your previous activity Non-emergency contact: Primary Care Provider and Specialist Call non-emergency contact if: your symptoms worsen and your temperature is above 101 Follow-up/Referrals: Kendal Diaz DO [Primary Care Provider] - Diet: Regular Addtl Attending Provider Instructions: Mr. He was admitted with weakness to the hospital and was found to have MRSA bacteremia. He was persistently bacteremic for about 1 week despite being vancomycin within 12 hours of admission. He underwent a TTE and ANNI; neither of which showed endocarditis. He did have a right empyema that underwent MIST protocol. Chest tube was removed on 08/17/2020. He also had MRI thoracic spine on 07/22 which was limited, but showed "non- specific prevertebral soft tissue edema/swelling adjacent to the large anterior osteophytes at the T8-T9 and T10-11 levels." He had continued back pain, but repeat was done on 08/20 which showed 1. Findings suggestive of acute discitis/osteomyelitis centered at the T8-T9 level with progressively worsened bone marrow, intervertebral disc space and paravertebral edema as detailed above. 2. Small fluid collections within the paravertebral tissues measuring up to 2.0 cm are suggestive of abscesses. Small anterior epidural abscess at T8-T9 measures up to 4.1 x 0.4 cm. He was seen by neurosurgery who felt this was a non-surgical issue. If his back pain worsens, if he has a fever(s), or if he has any neurologic changes, he would HAVE to have another MRI and probably go to [facility] for NSGY care. He had multiple episodes of urinary retention. His Gardner was discontinued, but had to be put back in at least once. Likely, he will need to follow up with urology for a voiding trial. Finally, he has had multiple need for blood transfusions. He had an EGD and colonoscopy with no indication of bleeding on either test. I have not seen any indication of small bowel bleeding (no melena, no vital sign changes). Anemia labs have indicated that he has anemia of illness/chronic disease. Some element of iron deficiency; however, given his bacteremia, we avoided any IV iron. He has severe left hip arthritis, but presently has clear contraindications to any sort of hip intervention at this time. After he finishes his IV antibiotics on 08/27/2020, he should be switched to do xycycline 100 mg PO BID for at least 4 weeks[address] see [address] Peterson Magdaleno at [facility] soon after finishing his IV antibiotics. The number for his office is [phone]. Pending Studies at Discharge: No Stand-Alone Forms: My [facility] Skilled Items Patient informed of condition?: No DNR: No Discharge Level of Care: Acute rehab Communicable Disease: No Discharge Prognosis: Stable Lines: Peripheral IV Urinary Catheter: Yes Medications and DC Order Prescriptions: New tramadol 50 mg Tablet 50 mg PO Q4H PRNQty: 0 RF: 0 tamsulosin 0.4 mg Capsule 0.4 mg PO HS Qty: 0 RF: 0 ceftaroline fosamil 600 mg recon soln 600 mg IV Q12H Qty: 1 RF: 0 Continued Multivitamin 50 Plus Tablet 1 tab PO QAM RF: 0 venlafaxine 150 mg Capsule,Extended Release 24hr 150 mg PO QAM RF: 0 levothyroxine 50 mcg Tablet 50 mcg PO QAM RF: 0 simvastatin 20 mg Tablet 20 mg PO HS RF: 0 cholecalciferol (vitamin D3) [Vitamin D3] 2,000 unit Capsule 2,000 unit PO QAM RF: 0 metoprolol tartrate 100 mg tablet 100 mg PO BID RF: 0 folic acid 1 mg tablet 1 mg PO DAILY RF: 0 topiramate 50 mg tablet 50 mg PO DAILY RF: 0 carbamazepine [Tegretol] 200 mg tablet 600 mg PO BID RF: 0 Discontinued enalapril maleate 20 mg tablet 20 mg PO BID RF: 0 chlorthalidone 25 mg tablet 25 mg PO DAILY RF: 0 furosemide 20 mg tablet 20 mg PO BID RF: 0 Discharge Orders: Discharge Order (Routine); Ordered 08/23/20 Ordered By: Jonn Gutiérrez/Other Patient Handouts: Anemia, Preventing Falls Moving Safely ..., Preventing Falls: Staying Active Admission Data Admit Date/Time: 07/21/20 12:57 Attending Provider: Jonn Bowman Admit Provider: Jonn Bowman Primary Care Provider: Kendal Diaz Other Providers: Ari Morales ; Raina Quinonez ; Rajinder Salinas I. ; Stephen Oneal II ; Grace Fitzpatrick ; Peterson Magdaleno ; Rashard Lamar ; Ronny Burton ; Priya Calixto ; [facility], ; Anai Caal ; Holden Welch ; [facility] ; Jarrett Gibbs Other Interventions: Discharge Summary Assessment (RN) Last Done: 08/23/20 13:36 Coding Level of Care Code D/C Day Management >30 mins Diagnoses MRSA bacteremia R78.81; B95.62 Acute renal failure N17.9 Anemia D64.9 HTN (hypertension) I10 Seizure disorder G40.909 Paranoid schizophrenia, chronic condition F20.0 Depression F32.9 HLD (hyperlipidemia) E78.5 DVT prophylaxis Z29.9
== END 2020-08-23 16:19 | DRG 871 ==
LOC: ED 10:04 → 2N 12:57 → SUATTDRO 12:57 → 2N 13:37 → 2W 07-22 03:09 → 3W 07-28 16:01
DX: R53.1 Weakness; Z79.899 Other long term (current) drug therapy; E03.9 Hypothyroidism, unspecified; E66.01 Morbid (severe) obesity due to excess calories; F20.0 Paranoid schizophrenia; K21.9 Gastro-esophageal reflux disease without esophagitis; J18.9 Pneumonia, unspecified organism; F32.9 Major depressive disorder, single episode, unspecified; G06.1 Intraspinal abscess and granuloma; J86.9 Pyothorax without fistula; M16.12 Unilateral primary osteoarthritis, left hip; E86.0 Dehydration; R06.02 Shortness of breath; L53.9 Erythematous condition, unspecified; E78.5 Hyperlipidemia, unspecified; A41.02 Sepsis due to Methicillin resistant Staphylococcus aureus; G47.33 Obstructive sleep apnea (adult) (pediatric); M25.562 Pain in left knee; R33.9 Retention of urine, unspecified; Z68.39 Body mass index [BMI] 39.0-39.9, adult; G40.909 Epilepsy, unspecified, not intractable, without status epilepticus; R07.89 Other chest pain; D53.9 Nutritional anemia, unspecified; I10 Essential (primary) hypertension; R26.9 Unspecified abnormalities of gait and mobility; N17.0 Acute kidney failure with tubular necrosis; J90 Pleural effusion, not elsewhere classified

== ENCOUNTER 2021-03-14 13:17 | Inpatient (IN) ==
--- NOTE | 2021-03-14 13:46 | Emergency Department Note ---
History of Present Illness General Chief complaint: Hip Pain Time Seen by Provider: 03/14/21 13:23 Source: patient Mode of arrival: EMS Limitations: no limitations History of Present Illness This patient is a 65-year-old male who presents to the emergency department for evaluation of a left hip dislocation. Patient states that he is currently a resident at [facility]. He states that 3 or 4 weeks ago, he felt like his hip became "disconnected" at some point. He does not recall a specific injury. He states that at baseline, he does not walk. He is not having any pain in the hip, but states that if you lift it up it just "flops down." He states that they finally did an x-ray on it today and it was found to be dislocated. He sta sahara he has had issues with that hip in the past and has seen Dr. Welch from [facility]. He states that they have talked about doing surgery on the hip in the past. Home Medications Medication Instructions Recorded Confirmed Type venlafaxine 150 mg 150 mg PO QAM 01/13/19 03/14/21 History capsule,extended release 24 hr folic acid 1 mg tablet 1 mg PO QAM 07/21/20 03/14/21 History carbamazepine 200 mg tablet 600 mg PO BID 07/31/20 03/14/21 History (Tegretol) tamsulosin 0.4 mg capsule 0.4 mg PO HS #0 cap 08/23/20 03/14/21 Rx tramadol 50 mg tablet 50 mg PO TID PRN 10/23/20 03/14/21 History Lactobacillus acidophilus-pectin 1 cap PO QAM 03/14/21 03/14/21 History capsule aripiprazole 5 mg tablet (Abilify) 5 mg PO QAM 03/14/21 03/14/21 History ascorbic acid (vitamin C) 500 mg 500 mg PO QAM 03/14/21 03/14/21 History capsule atorvastatin 10 mg tablet 10 mg PO HS 03/14/21 03/14/21 History baclofen 10 mg tablet 20 mg PO QAM 03/14/21 03/14/21 History cholecalciferol (vitamin D3) 125 125 mcg PO QAM 03/14/21 03/14/21 History mcg (5,000 unit) tablet (Vitamin D3) ciprofloxacin HCl 250 mg tablet 250 mg PO BID 03/14/21 03/14/21 History (Cipro) cyanocobalamin (vitamin B-12) 1,000 mcg PO QAM 03/14/21 03/14/21 History 1,000 mcg tablet (Vitamin B-12) ferrous sulfate 325 mg (65 mg 325 mg PO BID 03/14/21 03/14/21 History iron) tablet furosemide 40 mg tablet 40 mg PO BID 03/14/21 03/14/21 History gabapentin 300 mg capsule 300 mg PO TID 03/14/21 03/14/21 History ipratropium 20 mcg-albuterol 100 1 puff INHALATION QID 03/14/21 03/14/21 History mcg/actuation mist for inhalation (Combivent Respimat) lidocaine 4 % topical patch 1 patch TOPICAL DAILY PRN 03/14/21 03/14/21 History metoprolol tartrate 50 mg tablet 50 mg PO BID 03/14/21 03/14/21 History nitrofurantoin 100 mg PO BID 03/14/21 03/14/21 History monohydrate/macrocrystals 100 mg capsule (Macrobid) potassium chloride 20 mEq 20 meq PO QAM 03/14/21 03/14/21 History tablet,extended release(part/cryst) venlafaxine 75 mg capsule,extended 75 mg PO QAM 03/14/21 03/14/21 History release 24 hr zinc 50 mg tablet 50 mg PO QAM 03/14/21 03/14/21 History Allergies Allergy/AdvReac Type Severity Reaction Status Date / Time loxapine AdvReac Mild restless Verified 03/14/21 15:49 and nervous morphine AdvReac Mild nausea/vomi Verified 03/14/21 15:49 ting Past Med/Surg History Medical History OCTAVIO (acute kidney injury) Anemia Anxiety Depression GERD (gastroesophageal reflux disease) Hyperlipidemia Hypertension Hypothyroidism Morbid obesity due to excess calories MRSA bacteremia Obesity Osteoarthritis of hip Paranoid schizophrenia, chronic condition Seizure disorder last was 2002--on tegretol, follows with Dr. Vee Mcnulty Severe muscle deconditioning Shortness of breath Vitamin D deficiency Surgical History History of appendectomy History of cholecystectomy History of colonoscopy History of umbilical hernia repair History of wisdom tooth extraction Family History Father Family history of diabetes mellitus Mother Family history of diabetes mellitus Brother Family history of diabetes mellitus Other No family history of adverse response to anesthesia Social History Smoking Status: Former smoker Second Hand Exposure: No; Hx Alcohol Use: Yes Alcohol type: other Hx Substance Use: No Preferred Language: Kittitian Communication Ability: Effective Beam Press Operator Required: No Beliefs That Will Affect Care: None marital status: Single Current Living Situation: [facility] How many Children do You have: 0 Feels Safe at Home: Yes Assistive Devices: Glasses Review of Systems A total of 10 systems reviewed and were otherwise negative Physical Exam Vital Signs Vital Signs - 24 hr 03/14/21 13:25 03/14/21 15:20 Temperature 37 C Temperature Source Oral Pulse Rate 66 65 Respiratory Rate 14 18 Respiratory Effort / Characteristics Non-Labored Respiratory Depth Normal Blood Pressure 115/75 139/85 Blood Pressure Mean 88 103 Pulse Oximetry 97 94 Oxygen Delivery Method Room Air Room Air Sepsis Recent Fever Within 48 Hours No Sepsis New/Unexplained Change in Mental Status No Sepsis Action Taken by Nursing No Action Required VITALS: Vitals are noted on the nurse's note and reviewed by myself. GENERAL: This is a 65-year-old male, in no acute distress, sitting up in bed. Patient is chronically unwell appearing. SKIN: The skin was without rashes, erythema, edema, or bruising. HEAD: Normocephalic atraumatic. EARS: External auditory canals clear, tympanic membranes pearly pereira without erythema or effusion bilaterally. EYES: Pupils equal round and reactive to light and accommodation. MOUTH: Mucous membranes moist. NECK: Supple without nuchal rigidity. HEART: Regular rate and rhythm without murmurs gallops or rubs. LUNGS: Clear to auscultation bilaterally without wheezes, rales or rhonchi. ABDOMEN: Positive bowel sounds x 4. Soft, nontender to palpation. MUSCULOSKELETAL: The left leg is shortened and externally rotated. Patient unable to move his left hip. NEURO: Patient was alert and oriented to person place and time. Distal sensation is intact. Course Consultations Consultation #1: Dr. Welch - orthopedics Dr. Sherbondy reviewed the x-rays and did not feel that this truly represented a dislocation. He did recommend performing a CT scan and states he can either consult on the patient if admitted or see him as an outpatient. Administered Medications Albuterol (Albuterol Hfa 8 Gm Inhaler (Combivent Respimat P&T Subs)) 1 puffs INH QIDR [facility] Stop: 04/14/21 06:59 Last Admin: 03/16/21 19:54 Dose: 1 puffs Documented by: [id number] Admin: 03/16/21 15:24 Dose: 1 puffs Documented by: [id number] Admin: 03/16/21 11:00 Dose: 1 puffs Documented by: [id number] Admin: 03/16/21 07:55 Dose: 1 puffs Documented by: [id number] Admin: 03/15/21 19:26 Dose: Not Given Documented by: [id number] Admin: 03/15/21 16:18 Dose: 1 puffs Documented by: [id number] Admin: 03/15/21 16:01 Dose: Not Given Documented by: [id number] Admin: 03/15/21 13:26 Dose: 1 puffs Documented by: [id number] Admin: 03/15/21 09:13 Dose: 1 puffs Documented by: [id number] Aripiprazole (Aripiprazole 5 Mg Tab) 5 mg PO [facility] Stop: 04/14/21 08:59 Last Admin: 03/16/21 09:14 Dose: 5 mg Documented by: [id number] Admin: 03/15/21 08:15 Dose: 5 mg Documented by: [id number] Ascorbic Acid (Ascorbic Acid 500 Mg Tab) 500 mg PO [facility] Stop: 04/14/21 08:59 Last Admin: 03/16/21 09:13 Dose: 500 mg Documented by: [id number] Admin: 03/15/21 08:17 Dose: 500 mg Documented by: [id number] Atorvastatin Calcium (Atorvastatin 10 Mg Tab) 10 mg PO HS [facility] Stop: 04/14/21 20:59 Last Admin: 03/16/21 22:00 Dose: 10 mg Documented by: [id number] Admin: 03/15/21 20:38 Dose: 10 mg Documented by: [id number] Baclofen (Baclofen 20 Mg Tab) [facility] [place] Stop: 04/14/21 08:59 Last Admin: 03/16/21 09:14 Dose: 20 mg Documented by: [id number] Admin: 03/15/21 08:16 Dose: 20 mg Documented by: [id number] Carbamazepine (Carbamazepine 200 Mg Tablet) 600 mg PO BID [facility] Stop: 04/13/21 22:35 Last Admin: 03/16/21 22:00 Dose: 600 mg Documented by: [id number] Admin: 03/16/21 09:14 Dose: 600 mg Documented by: [id number] Admin: 03/15/21 20:39 Dose: 600 mg Documented by: [id number] Admin: 03/15/21 08:17 Dose: 600 mg Documented by: [id number] Admin: 03/15/21 00:14 Dose: 600 mg Documented by: [id number] Cyanocobalamin (Cyanocobalamin 500 Mcg Tablet (Vitamin B-12)) 1,000 mcg PO QAM [facility] Stop: 04/14/21 08:59 Last Admin: 03/16/21 09:15 Dose: 1,000 mcg Documented by: [id number] Admin: 03/15/21 08:16 Dose: 1,000 mcg Documented by: [id number] Ferrous Sulfate (Ferrous Sulfate 325 Mg Tab) 325 mg PO BIDM [facility] Stop: 04/14/21 07:59 Last Admin: 03/16/21 17:04 Dose: 325 mg Documented by: [id number] Admin: 03/16/21 09:15 Dose: 325 mg Documented by: [id number] Admin: 03/15/21 15:49 Dose: 325 mg Documented by: [id number] Admin: 03/15/21 08:16 Dose: 325 mg Documented by: [id number] Folic Acid (Folic Acid 1 Mg Tab) 1 mg PO QAM [facility] Stop: 04/14/21 08:59 Last Admin: 03/16/21 09:14 Dose: 1 mg Documented by: [id number] Admin: 03/15/21 08:16 Dose: 1 mg Documented by: [id number] Furosemide (Furosemide 40 Mg Tab) 40 mg PO BID17 [facility] Stop: 04/13/21 23:13 Last Admin: 03/16/21 17:04 Dose: 40 mg Documented by: [id number] Admin: 03/16/21 11:18 Dose: 40 mg Documented by: [id number] Admin: 03/15/21 15:49 Dose: 40 mg Documented by: [id number] Admin: 03/15/21 08:16 Dose: 40 mg Documented by: [id number] Admin: 03/15/21 00:14 Dose: 40 mg Documented by: [id number] Gabapentin (Gabapentin 300 Mg Cap) 300 mg PO TID [facility] Stop: 04/14/21 08:59 Last Admin: 03/16/21 21:59 Dose: 300 mg Documented by: [id number] Admin: 03/16/21 13:05 Dose: 300 mg Documented by: [id number] Admin: 03/16/21 09:13 Dose: 300 mg Documented by: [id number] Admin: 03/15/21 21:35 Dose: 300 mg Documented by: [id number] Admin: 03/15/21 13:24 Dose: 300 mg Documented by: [id number] Admin: 03/15/21 08:16 Dose: 300 mg Documented by: [id number] Piperacillin Sod/Tazobactam (Sod 3.375 gm/ Dextrose) 115 mls @ 28.75 mls/hr IV Q8H [facility]; Protocol Stop: 03/25/21 19:59 Last Admin: 03/17/21 04:40 Dose: 28.8 mls/hr Documented by: [id number] Infusion: 03/17/21 02:06 Dose: 0 mls/hr Documented by: [id number] Admin: 03/16/21 21:58 Dose: 28.8 mls/hr Documented by: [id number] Infusion: 03/16/21 17:00 Dose: 0 mls/hr Documented by: [id number] Admin: 03/16/21 13:05 Dose: 28.8 mls/hr Documented by: [id number] Infusion: 03/16/21 09:30 Dose: 0 mls/hr Documented by: [id number] Admin: 03/16/21 05:01 Dose: 28.8 mls/hr Documented by: [id number] Infusion: 03/16/21 00:53 Dose: 0 mls/hr Documented by: [id number] Admin: 03/15/21 20:38 Dose: 28.8 mls/hr Documented by: [id number] Ipratropium [place] (Ipratropium Hfa Inhaler (Combivent Respimat P&T Subs)) 1 puffs INH QIDR [facility] Stop: 04/14/21 06:59 Last Admin: 03/16/21 19:53 Dose: 1 puffs Documented by: [id number] Admin: 03/16/21 15:24 Dose: 1 puffs Documented by: [id number] Admin: 03/16/21 11:00 Dose: 1 puffs Documented by: [id number] Admin: 03/16/21 07:54 Dose: 1 puffs Documented by: [id number] Admin: 03/15/21 22:06 Dose: Not Given Documented by: [id number] Admin: 03/15/21 16:19 Dose: 1 puffs Documented by: [id number] Admin: 03/15/21 16:01 Dose: Not Given Documented by: [id number] Admin: 03/15/21 13:26 Dose: 1 puffs Documented by: [id number] Admin: 03/15/21 09:14 Dose: 1 puffs Documented by: [id number] Lactobacillus Acidoph/Casei/Rhamnos (Advanced Probiotic 1250 Mg Capsule) 2 cap PO QAM [facility] Stop: 04/14/21 08:59 Last Admin: 03/16/21 09:14 Dose: 2 cap Documented by: [id number] Admin: 03/15/21 08:16 Dose: 2 cap Documented by: [id number] Lidocaine (Lidocaine 5% 1 Patch) 1 patch TD DAILY PRN PRN Reason: Mid back pain Stop: 04/13/21 23:29 Last Admin: 03/15/21 10:27 Dose: 1 patch Documented by: [id number] Metoprolol Tartrate (Metoprolol Tartrate 50 Mg Tab) 50 mg PO BID [facility] Stop: 04/13/21 22:35 Last Admin: 03/16/21 22:00 Dose: 50 mg Documented by: [id number] Admin: 03/16/21 09:14 Dose: 50 mg Documented by: [id number] Admin: 03/15/21 20:39 Dose: 50 mg Documented by: [id number] Admin: 03/15/21 08:16 Dose: 50 mg Documented by: [id number] Admin: 03/15/21 00:14 Dose: 50 mg Documented by: [id number] Miscellaneous (Remove Lidoderm Patch) 1 ea N/A DAILY@2100 [facility] Stop: 04/14/21 20:59 Last Admin: 03/16/21 22:12 Dose: Not Given Documented by: [id number] Admin: 03/15/21 20:40 Dose: 1 ea Documented by: [id number] Ondansetron HCl (Ondansetron Inj 2 Mg/Ml 2 Ml Vial) 4 mg IV Q6H PRN PRN Reason: Nausea Stop: 04/13/21 22:35 Last Admin: 03/16/21 19:31 Dose: 4 mg Documented by: [id number] Admin: 03/16/21 11:19 Dose: 4 mg Documented by: [id number] Admin: 03/15/21 13:28 Dose: 4 mg Documented by: [id number] Potassium Chloride (Potassium Chloride Crtab 20 Meq Tabcr) 20 meq PO QAM [facility] Stop: 04/14/21 08:59 Last Admin: 03/16/21 09:13 Dose: 20 meq Documented by: [id number] Admin: 03/15/21 08:16 Dose: 20 meq Documented by: [id number] Tamsulosin HCl (Tamsulosin Hcl 0.4 Mg Cap) 0.4 mg PO HS [facility] Stop: 04/14/21 20:59 Last Admin: 03/16/21 21:59 Dose: 0.4 mg Documented by: [id number] Admin: 03/15/21 20:39 Dose: 0.4 mg Documented by: [id number] Tramadol HCl (Tramadol Hcl 50 Mg Tablet) 50 mg PO TID PRN PRN Reason: Pain Stop: 04/13/21 22:35 Last Admin: 03/16/21 11:18 Dose: 50 mg Documented by: [id number] Admin: 03/15/21 08:15 Dose: 50 mg Documented by: [id number] Venlafaxine HCl (Venlafaxine Hcl Xr 75 Mg Capxr) 75 [facility] [place] Stop: 04/14/21 08:59 Last Admin: 03/16/21 09:15 Dose: 75 mg Documented by: [id number] Admin: 03/15/21 08:16 Dose: 75 mg Documented by: [id number] Venlafaxine HCl (Venlafaxine Hcl Xr 150 Mg Capxr) 150 mg [facility] [place] Stop: 04/14/21 08:59 Last Admin: 03/16/21 09:15 Dose: 150 mg Documented by: [id number] Admin: 03/15/21 08:17 Dose: 150 mg Documented by: [id number] Vitamin D (Cholecalciferol 1,000 Units 25 Mcg Tab) 5,000 units [facility] [place] Stop: 04/14/21 08:59 Last Admin: 03/16/21 09:13 Dose: 5,000 units Documented by: [id number] Admin: 03/15/21 08:17 Dose: 5,000 units Documented by: [id number] Zinc Sulfate (Zinc Sulfate 220 Mg Capsule) 220 mg PO QAM [facility] Stop: 04/14/21 08:59 Last Admin: 03/16/21 11:18 Dose: 220 mg Documented by: [id number] Admin: 03/15/21 08:16 Dose: 220 mg Documented by: [id number] Discontinued Medications Piperacillin Sod/Tazobactam (Sod 3.375 gm/ Dextrose) 115 mls @ 230 mls/hr IV NOW ONE; Protocol Stop: 03/15/21 15:29 Last Infusion: 03/15/21 17:12 Dose: 0 mls/hr Documented by: [id number] Admin: 03/15/21 16:24 Dose: 230 mls/hr Documented by: [id number] Potassium Chloride (Potassium Chloride Crtab 20 Meq Tabcr) 40 meq PO NOW STA Stop: 03/14/21 21:15 Last Admin: 03/14/21 21:51 Dose: 40 meq Documented by: [id number] Potassium Chloride (Potassium Chloride Crtab 20 Meq Tabcr) 20 meq PO NOW STA Stop: 03/15/21 09:27 Last Admin: 03/15/21 10:26 Dose: 20 meq Documented by: [id number] Potassium Chloride (Potassium Chloride Crtab 20 Meq Tabcr) 40 meq PO NOW STA Stop: 03/16/21 09:37 Last Admin: 03/16/21 11:18 Dose: 40 meq Documented by: [id number] Sodium Biphosphate/Sodium Phosphate (Sod Phosphate/Sod Biphosphate Enema 132 Ml Btl) 132 ml MN NOW STA Stop: 03/15/21 15:04 Last Admin: 03/15/21 15:49 Dose: Not Given Documented by: [id number] Medical Decision Making Differential Diagnosis Differential diagnosis includes fracture, dislocation, osteomyelitis, infection, among others. Home Medications Current Medication List: was personally reviewed by me Laboratory Data Attestation: I reviewed the patient's lab results. Result diagrams: 03/16/21 06:25 03/16/21 06:25 Lab Results 03/14/21 03/14/21 03/14/21 Range/Units 14:08 14:08 14:08 WBC 6.19 (4.8-10.8) K/uL RBC 2.64 L (4.7-6.1) M/uL Hgb 8.7 L (14.0-18.0) g/dL Hct 27.3 L (42-52) % MCV 103.4 H (80-100) fL MCH 33.0 (25-34) pg MCHC 31.9 L (32-36) g/dL RDW Std Deviation 62.9 H (36.4-46.3) fL RDW Coeff of Peng 16.7 H (11.5-14.5) % Plt Count 395 (130-400) K/uL MPV 8.8 (7.4-10.4) fL Immature Gran % (Auto) 0.3 % Neut % (Auto) 76.3 % Lymph % (Auto) 13.2 % [place] % (Auto) 7.9 % Eos % (Auto) 2.1 % Baso % (Auto) 0.2 % Neut # (Auto) 4.72 (1.4-6.5) K/uL Lymph # (Auto) 0.82 L (1.2-3.4) K/uL [place] # (Auto) 0.49 (0.11-0.59) K/uL Eos # (Auto) 0.13 (0-0.5) K/uL Baso # (Auto) 0.01 (0-0.2) K/uL Immature Gran # (Auto) 0.02 (0.00-0.02) K/uL PT 10.3 (9.0-12.0) Seconds INR 1.0 (0.9-1.1) APTT 32.5 H (21.0-31.0) Seconds PTT Ratio 1.2 Sodium (136-145) mmol/L Potassium (3.5-5.1) mmol/L Chloride (98-107) mmol/L Carbon Dioxide (21-32) mmol/L Anion Gap (3-11) BUN (7-18) mg/dl Creatinine (0.6-1.4) mg/dl Est Cr Clr Drug Dosing ml/min Est GFR ( Amer) ml/min Est GFR (Non-Af Amer) ml/min BUN/Creatinine Ratio (10-20) Glucose (70-99) mg/dl Calcium (8.5-10.1) mg/dl Total Bilirubin (0.2-1) mg/dl AST (15-37) U/L ALT (12-78) U/L Alkaline Phosphatase (45-117) U/L Total Protein (6.4-8.2) gm/dl Albumin (3.4-5.0) gm/dl Globulin (2.5-4.0) gm/dl Albumin/Globulin Ratio (0.9-2) Urine Color Urine Appearance (Clear) Urine pH (4.5-7.5) Ur Specific [place] (1.000-1.030) Urine Protein (Negative) Urine Glucose (UA) (Negative) Urine Ketones (Negative) Urine Blood (Negative) Urine Nitrite (Negative) Urine Bilirubin (Negative) Urine Urobilinogen (Negative) Ur Leukocyte Esterase (Negative) Urine WBC (Auto) (0-5) /hpf Urine RBC (Auto) (0-4) /hpf U Hyaline Cast (Auto) (0-5) /lpf U Epithel Cells (Auto) (0-5) /lpf Urine Bacteria (Auto) (Negative) COVID-19 Eval Order SARS-CoV-2 (PCR) (Negative) Blood Type AB Positive Antibody Screen NEGATIVE 03/14/21 03/14/21 03/14/21 Range/Units 14:08 14:11 14:11 WBC (4.8-10.8) K/uL RBC (4.7-6.1) M/uL Hgb (14.0-18.0) g/dL Hct (42-52) % MCV (80-100) fL MCH (25-34) pg MCHC (32-36) g/dL RDW Std Deviation (36.4-46.3) fL RDW Coeff of Peng (11.5-14.5) % Plt Count (130-400) K/uL MPV (7.4-10.4) fL Immature Gran % (Auto) % Neut % (Auto) % Lymph % (Auto) % [place] % (Auto) % Eos % (Auto) % Baso % (Auto) % Neut # (Auto) (1.4-6.5) K/uL Lymph # (Auto) (1.2-3.4) K/uL [place] # (Auto) (0.11-0.59) K/uL Eos # (Auto) (0-0.5) K/uL Baso # (Auto) (0-0.2) K/uL Immature Gran # (Auto) (0.00-0.02) K/uL PT (9.0-12.0) Seconds INR (0.9-1.1) APTT (21.0-31.0) Seconds PTT Ratio Sodium 138 (136-145) mmol/L Potassium 3.1 L (3.5-5.1) mmol/L Chloride 102 (98-107) mmol/L Carbon Dioxide 31 (21-32) mmol/L Anion Gap 5.0 (3-11) BUN 12 (7-18) mg/dl Creatinine 0.67 (0.6-1.4) mg/dl Est Cr Clr Drug Dosing 132.9 ml/min Est GFR ( Amer) 117.7 ml/min Est GFR (Non-Af Amer) 101.5 ml/min BUN/Creatinine Ratio 17.3 (10-20) Glucose 95 (70-99) mg/dl Calcium 8.5 (8.5-10.1) mg/dl Total Bilirubin 0.2 (0.2-1) mg/dl AST 9 L (15-37) U/L ALT 13 (12-78) U/L Alkaline Phosphatase 92 (45-117) U/L Total Protein 7.2 (6.4-8.2) gm/dl Albumin 2.5 L (3.4-5.0) gm/dl Globulin 4.7 H (2.5-4.0) gm/dl Albumin/Globulin Ratio 0.5 L (0.9-2) Urine Color Urine Appearance (Clear) Urine pH (4.5-7.5) Ur Specific [place] (1.000-1.030) Urine Protein (Negative) Urine Glucose (UA) (Negative) Urine Ketones (Negative) Urine Blood (Negative) Urine Nitrite (Negative) Urine Bilirubin (Negative) Urine Urobilinogen (Negative) Ur Leukocyte Esterase (Negative) Urine WBC (Auto) (0-5) /hpf Urine RBC (Auto) (0-4) /hpf U Hyaline Cast (Auto) (0-5) /lpf U Epithel Cells (Auto) (0-5) /lpf Urine Bacteria (Auto) (Negative) COVID-19 Eval Order Covid19 at [facility] SARS-CoV-2 (PCR) NEGATIVE (Negative) Blood Type Antibody Screen 03/14/21 Range/Units 16:15 WBC (4.8-10.8) K/uL RBC (4.7-6.1) M/uL Hgb (14.0-18.0) g/dL Hct (42-52) % MCV (80-100) fL MCH (25-34) pg MCHC (32-36) g/dL RDW Std Deviation (36.4-46.3) fL RDW Coeff of Peng (11.5-14.5) % Plt Count (130-400) K/uL MPV (7.4-10.4) fL Immature Gran % (Auto) % Neut % (Auto) % Lymph % (Auto) % [place] % (Auto) % Eos % (Auto) % Baso % (Auto) % Neut # (Auto) (1.4-6.5) K/uL Lymph # (Auto) (1.2-3.4) K/uL [place] # (Auto) (0.11-0.59) K/uL Eos # (Auto) (0-0.5) K/uL Baso # (Auto) (0-0.2) K/uL Immature Gran # (Auto) (0.00-0.02) K/uL PT (9.0-12.0) Seconds INR (0.9-1.1) APTT (21.0-31.0) Seconds PTT Ratio Sodium (136-145) mmol/L Potassium (3.5-5.1) mmol/L Chloride (98-107) mmol/L Carbon Dioxide (21-32) mmol/L Anion Gap (3-11) BUN (7-18) mg/dl Creatinine (0.6-1.4) mg/dl Est Cr Clr Drug Dosing ml/min Est GFR ( Amer) ml/min Est GFR (Non-Af Amer) ml/min BUN/Creatinine Ratio (10-20) Glucose (70-99) mg/dl Calcium (8.5-10.1) mg/dl Total Bilirubin (0.2-1) mg/dl AST (15-37) U/L ALT (12-78) U/L Alkaline Phosphatase (45-117) U/L Total Protein (6.4-8.2) gm/dl Albumin (3.4-5.0) gm/dl Globulin (2.5-4.0) gm/dl Albumin/Globulin Ratio (0.9-2) Urine Color Yellow Urine Appearance Clear (Clear) Urine pH 6.0 (4.5-7.5) Ur Specific [place] 1.013 (1.000-1.030) Urine Protein Trace H (Negative) Urine Glucose (UA) Negative (Negative) Urine Ketones Negative (Negative) Urine Blood Negative (Negative) Urine Nitrite Negative (Negative) Urine Bilirubin Negative (Negative) Urine Urobilinogen Negative (Negative) Ur Leukocyte Esterase 2+ H (Negative) Urine WBC (Auto) 10-30 H (0-5) /hpf Urine RBC (Auto) 5-10 H (0-4) /hpf U Hyaline Cast (Auto) 5-10 H (0-5) /lpf U Epithel Cells (Auto) 10-20 H (0-5) /lpf Urine Bacteria (Auto) Negative (Negative) COVID-19 Eval Order SARS-CoV-2 (PCR) (Negative) Blood Type Antibody Screen Imaging Data Attestation: I personally reviewed and interpreted this imaging study as f cinda: Radiologist's Impression: Chest X-Ray 03/14/21 13:35 XR chest 1V portable HISTORY: Fall. hip fx/dislocation COMPARISON: Chest 08/21/2020. FINDINGS: No pneumothorax or no pleural effusions. The cardiac silhouette remains mildly enlarged. Mild right perihilar interstitial thickening which has improved. This suggests mild asymmetric congestive change. No new focal lung consolidations to suggest pneumonia. Large hiatus hernia. IMPRESSION: 1. Mild asymmetric pulmonary vascular congestion which has improved. 2. Large hiatus hernia, unchanged. ACT 112: Negative or not required by law. Electronically signed by: Andrade Mcfadden M.D. 03/14/2021 2:01 PM Hip X-Ray 03/14/21 13:35 XR hip LT min 2V CLINICAL HISTORY: left hip dislocation COMPARISON: CT of the left hip August 12, 2020. Left hip radiographs August 14, 2020. FINDINGS: Note is made of superior dislocation of the left femoral head with respect to the acetabulum which is new since prior radiographs of August 14, 2020. Severe osteoarthritis is noted with chronic flattening of the left femoral head and extensive osteophytosis. The acetabulum appears truncated with compared to prior exam. Superimposed fracture cannot be excluded. No proximal left femoral fracture is identified although sensitivity is diminished given extensive degenerative changes IMPRESSION: 1. Interval development of superior dislocation of the left femoral head. 2. Severe left hip osteoarthritis with extensive osteophytosis which decreases the sensitivity for detection of fractures. Acetabulum appears truncated. Superimposed fracture cannot be excluded. ACT 112: Negative or not required by law. Electronically signed by: Jerardo Moore M.D. 03/14/2021 2:[address] 03/14/21 14:53 CT hip LT wo con HISTORY: 65 years-old Male left hip dislocation/fracture? Acute left hip pain COMPARISON: [Radiographs of same day, CT abdomen and pelvis 08/12/2020 TECHNIQUE: Multiple axial CT images of the left hip were obtained without the use of IV contrast. A dose lowering technique was used consistent with the principals of ALARA. FINDINGS: Urinary bladder wall thickening with partial distention and Gardner catheter. Prostamegaly. Distended stool-filled rectum with rectal wall thickening and mild perirectal stranding. Severe chronic left hip osteoarthritis with chronic remodeling changes. Demineralized appearance of the bones. There are numerous corticated ossifications with periarticular debris surrounding the left femoral acetabular joint including bone fragments measuring up to 2.8 cm anterior to the anterior aspect of the acetabulum which have changed positioning from comparison. Large associated femoral acetabular joint effusion. No acute fracture line identified. The left femur is dislocated superiorly and posteriorly in relation to the acetabulum. IMPRESSION: 1. 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 Numerous corticated ossifications with calcified periarticular debris surrounding the left hip. These likely represent fragmented osteophytes. No acute fracture line identified. 2. Superior posterior dislocation of the femur in relation to the acetabulum. 3. Large left hip joint effusion. 4. Questioned stercoral proctitis. ACT 112: Negative or not required by law. The above report was generated using voice recognition software. It may contain grammatical, syntax or spelling errors. Electronically signed by: Pedro Lind M.D. 03/14/2021 3:39 PM MDM Narrative This patient is a 65-year-old male who presents to the emergency department for evaluation of problems with his left hip. The patient states the hip has felt out of place for several weeks, however an x-ray was just performed today. When this was performed, patient was found to have a dislocation of his hip. Orthopedics was consulted. Patient will be admitted for further care. Impression & Plan Dislocation of left hip Discharge Plan Visit Data Chief Complaint: Hip Pain ED Provider: Beka Hartmann ED Midlevel Provider: Juanita Guaman Discharge Problem: Dislocation of left hip Patient Disposition: Admitted As Inpatient Discharge Instructions Interventions: ED Discharge Assessment Last Done: 03/14/21 22:15
--- NOTE | 2021-03-14 14:02 | XRay Report ---
XR chest 1V portable HISTORY: Fall. hip fx/dislocation COMPARISON: Chest 08/21/2020. FINDINGS: No pneumothorax or no pleural effusions. The cardiac silhouette remains mildly enlarged. Mi ld right perihilar interstitial thickening which has improved. This suggests mild asymmetric congesti ve change. No new focal lung consolidations to suggest pneumonia. Large hiatus hernia. IMPRESSION: 1. Mild asymmetric pulmonary vascular congestion which has improved. 2. Large hiatus hernia, unchanged. ACT 112: Negative or not required by law. Electronically signed by: Andrade Mcfadden M.D. 03/14/2021 2:01 PM
--- NOTE | 2021-03-14 14:04 | XRay Report ---
XR hip LT min 2V CLINICAL HISTORY: left hip dislocation COMPARISON: CT of the left hip August 12, 2020. Left hip radiographs August 14, 2020. FINDINGS: Note is made of superior dislocation of the left femoral head with respect to the acetabul um which is new since prior radiographs of August 14, 2020. Severe osteoarthritis is noted with maintenance shop laborer james flattening of the left femoral head and extensive osteophytosis. The acetabulum appears truncated with compared to prior exam. Superimposed fracture cannot be excluded. No proximal left femoral frac ture is identified although sensitivity is diminished given extensive degenerative changes IMPRESSION: 1. Interval development of superior dislocation of the left femoral head. 2. Severe left hip osteoarthritis with extensive osteophytosis which decreases the sensitivity for de tection of fractures. Acetabulum appears truncated. Superimposed fracture cannot be excluded. ACT 112: Negative or not required by law. Electronically signed by: Jerardo Moore M.D. 03/14/2021 2:03 PM
[2021-03-14 14:24] LABS: Basophils # (auto) 0.01 K/uL (0-0.2); Basophils % (auto) 0.2 %; Eosinophils # (auto) 0.13 K/uL (0-0.5); Eosinophils % (auto) 2.1 %; Hematocrit (blood only) 27.3 % (42-52); Hemoglobin 8.7 g/dL (14.0-18.0); Immature Granulocytes # (auto) 0.02 K/uL (0.00-0.02); Immature Granulocytes % (auto) 0.3 %; Lymphocytes # (auto) 0.82 K/uL (1.2-3.4); Lymphocytes % (auto) 13.2 %; Mean Corpuscular Hgb Conc 31.9 g/dL (32-36); Mean Corpuscular Volume 103.4 fL (80-100); Mean Platelet Volume 8.8 fL (7.4-10.4); Monocytes # (auto) 0.49 K/uL (0.11-0.59); Monocytes % (auto) 7.9 %; Neutrophils # (auto) 4.72 K/uL (1.4-6.5); Neutrophils % (auto) 76.3 %; Platelet Count 395 K/uL (130-400); RDW Coefficient of Variation 16.7 % (11.5-14.5); RDW Standard Deviation 62.9 fL (36.4-46.3); Red Blood Count 2.64 M/uL (4.7-6.1); White Blood Count 6.19 K/uL (4.8-10.8)
[2021-03-14 14:39] LABS: Albumin Level 2.5 gm/dl (3.4-5.0); BUN Creatinine Ratio 17.3 (10-20); Calcium 8.5 mg/dl (8.5-10.1); Creatinine Clr Calc Pharmacy 132.9 ml/min; Est GFR (African American) 117.7 ml/min; Est GFR (Non-African American) 101.5 ml/min; Potassium 3.1 mmol/L (3.5-5.1)
[2021-03-14 14:41] LABS: Albumin Globulin Ratio 0.5 (0.9-2); Bilirubin,Total 0.2 mg/dl (0.2-1); Globulin 4.7 gm/dl (2.5-4.0); Total Protein 7.2 gm/dl (6.4-8.2)
[2021-03-14 14:53] LABS: Partial Thromboplastin Ratio 1.2; Partial Thromboplastin Time 32.5 Seconds (21.0-31.0); Prothrombin Time 10.3 Seconds (9.0-12.0)
--- NOTE | 2021-03-14 15:41 | CT Scan Report ---
CT hip LT wo con HISTORY: 65 years-old Male left hip dislocation/fracture? Acute left hip pain COMPARISON: [Radiographs of same day, CT abdomen and pelvis 08/12/2020 TECHNIQUE: Multiple axial CT images of the left hip were obtained without the use of IV contrast. A d ose lowering technique was used consistent with the principals of ALDA. FINDINGS: Urinary bladder wall thickening with partial distention and Gardner catheter. Prostamegaly. Distended s tool-filled rectum with rectal wall thickening and mild perirectal stranding. Severe chronic left hip osteoarthritis with chronic remodeling changes. Demineralized appearance of t he bones. There are numerous corticated ossifications with periarticular debris surrounding the left femoral acetabular joint including bone fragments measuring up to 2.8 cm anterior to the anterior asp ect of the acetabulum which have changed positioning from comparison. Large associated femoral acetab ular joint effusion. No acute fracture line identified. The left femur is dislocated superiorly and p osteriorly in relation to the acetabulum. IMPRESSION: 1. 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 Numerous corticated ossifications with calcified periarticular debris surrounding the left hip. These likely represent fragmented osteophytes. No acute fracture line identified. 2. Superior posterior dislocation of the femur in relation to the acetabulum. 3. Large left hip joint effusion. 4. Questioned stercoral proctitis. ACT 112: Negative or not required by law. The above report was generated using voice recognition software. It may contain grammatical, syntax o r spelling errors. Electronically signed by: Pedro Lind M.D. 03/14/2021 3:39 PM
[2021-03-14 16:32] LABS: Appearance Urine Clear (Clear); Bacteria Urine Automated Negative (Negative); Bilirubin Urine Negative (Negative); Blood Urine Negative (Negative); Color Urine Yellow; Glucose Urine UA Negative (Negative); Ketones Urine Negative (Negative); Leukocyte Esterase Urine 2+ (Negative); Nitrite Urine Negative (Negative); Protein Urine Trace (Negative); Specific Gravity Urine 1.013 (1.000-1.030); Urobilinogen Urine Negative (Negative)
[2021-03-14] MEDS ORDERED: POTASSIUM CHLORIDE CRTAB 20 MEQ TABCR PO STA (21:14)
--- NOTE | 2021-03-14 21:14 | History & Physical Report ---
Date of Service March 14, 2021 Assessment & Plan (1) Dislocation of left hip: Plan: Dislocation of left hip- By patient's history, has been out for 3-4 Per patient history also has been a recurrent issue Orthopedic surgery, Dr. Welch is aware and will see patient in a.m. (2) HTN (hypertension): Plan: Continue metoprolol tartrate 50 mg B p.o. twice daily with hold parameters (3) HLD (hyperlipidemia): Plan: Continue atorvastatin 10 mg daily (4) Depression: Plan: Depression/anxiety/paranoid schizophrenia/seizure disorder- Continue Abilify, carbamazepine, gabapentin, and venlafaxine (5) Anxiety: Plan: See above (6) Paranoid schizophrenia, chronic condition: Plan: See above (7) Seizure disorder: Plan: See above History of Present Illness Chief Complaint: The patient is referred to the emergency department from [facility] for assessment of a left hip dislocation noted on x-ray earlier in the day Primary Care Provider: Lauri Rivas The patient is a 65-year-old male with a past medical history including thoracic abscess, morbid obesity, severe muscle deconditioning, pleural effusion, OCTAVIO, MRSA bacteremia, GI bleeding, acute renal failure, hypertension, hyperlipidemia, depression, anemia, anxiety, hypothyroidism, paranoid schizophrenia, seizure disorder and vitamin D deficiency. He reports that for the past 3 to 4 weeks he has been unable to walk well due to left hip discomfort. He had an x-ray performed today in the outpatient setting which showed a left hip dislocation, and was referred to the ED for assessment. He reports that he has had issues with that hip in the past, and is followed with Dr. Welch from [facility] orthopedics Allergies Allergy/AdvReac Type Severity Reaction Status Date / Time loxapine AdvReac Mild restless Verified 03/14/21 15:49 and nervous morphine AdvReac Mild nausea/vomi Verified 03/14/21 15:49 ting Home Medications Medication Instructions Recorded Confirmed Type venlafaxine 150 mg 150 mg PO QAM 01/13/19 03/14/21 History capsule,extended release 24 hr folic acid 1 mg tablet 1 mg PO QAM 07/21/20 03/14/21 History carbamazepine 200 mg tablet 600 mg PO BID 07/31/20 03/14/21 History (Tegretol) tamsulosin 0.4 mg capsule 0.4 mg PO HS #0 cap 08/23/20 03/14/21 Rx tramadol 50 mg tablet 50 mg PO TID PRN 10/23/20 03/14/21 History Lactobacillus acidophilus-pectin 1 cap PO QAM 03/14/21 03/14/21 History capsule aripiprazole 5 mg tablet (Abilify) 5 mg PO QAM 03/14/21 03/14/21 History ascorbic acid (vitamin C) 500 mg 500 mg PO QAM 03/14/21 03/14/21 History capsule atorvastatin 10 mg tablet 10 mg PO HS 03/14/21 03/14/21 History baclofen 10 mg tablet 20 mg PO QAM 03/14/21 03/14/21 History cholecalciferol (vitamin D3) 125 125 mcg PO QAM 03/14/21 03/14/21 History mcg (5,000 unit) tablet (Vitamin D3) ciprofloxacin HCl 250 mg tablet 250 mg PO BID 03/14/21 03/14/21 History (Cipro) cyanocobalamin (vitamin B-12) 1,000 mcg PO QAM 03/14/21 03/14/21 History 1,000 mcg tablet (Vitamin B-12) ferrous sulfate 325 mg (65 mg 325 mg PO BID 03/14/21 03/14/21 History iron) tablet furosemide 40 mg tablet 40 mg PO BID 03/14/21 03/14/21 History gabapentin 300 mg capsule 300 mg PO TID 03/14/21 03/14/21 History ipratropium 20 mcg-albuterol 100 1 puff INHALATION QID 03/14/21 03/14/21 History mcg/actuation mist for inhalation (Combivent Respimat) lidocaine 4 % topical patch 1 patch TOPICAL DAILY PRN 03/14/21 03/14/21 History metoprolol tartrate 50 mg tablet 50 mg PO BID 03/14/21 03/14/21 History nitrofurantoin 100 mg PO BID 03/14/21 03/14/21 History monohydrate/macrocrystals 100 mg capsule (Macrobid) potassium chloride 20 mEq 20 meq PO QAM 03/14/21 03/14/21 History tablet,extended release(part/cryst) venlafaxine 75 mg capsule,extended 75 mg PO QAM 03/14/21 03/14/21 History release 24 hr zinc 50 mg tablet 50 mg PO QAM 03/14/21 03/14/21 History Past Med/Surg History Medical History OCTAVIO (acute kidney injury) Anemia Anxiety Depression GERD (gastroesophageal reflux disease) Hyperlipidemia Hypertension Hypothyroidism Morbid obesity due to excess calories MRSA bacteremia Obesity Osteoarthritis of hip Paranoid schizophrenia, chronic condition Seizure disorder last was 2002--on tegretol, follows with Dr. Vee Mcnulty Severe muscle deconditioning Shortness of breath Vitamin D deficiency Surgical History History of appendectomy History of cholecystectomy History of colonoscopy History of umbilical hernia repair History of wisdom tooth extraction Family History Father Family history of diabetes mellitus Mother Family history of diabetes mellitus Brother Family history of diabetes mellitus Other No family history of adverse response to anesthesia Social History Smoking Status: Never smoker Second Hand Exposure: Yes (mom smoked); Hx Alcohol Use: Yes Alcohol type: other Hx Substance Use: No Preferred Language: Uzbek Communication Ability: Effective 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 Beliefs That Will Affect Care: None marital status: Single Current Living Situation: Alone How many Children do You have: 0 Feels Safe at Home: Yes Assistive Devices: Glasses Review of Systems Review of Systems: The patient denies chest pain, palpitations, shortness of breath, dyspnea on exertion, cough, lower extremity swelling, sore throat, fevers, chills, sweats,fatigue, nausea, vomiting, diarrhea , constipation, abdominal pain, pelvic pain, blood in urine or stool, dysuria, urinary frequency or urgency, lightheadedness, dizziness, headache, memory loss, loss of consciousness, rash, abnormal bruising or bleeding, focal or generalized weakness, numbness or tingling in arms, generalized arthralgias or myalgias, back or neck pain, or night sweats. The review of systems is otherwise negative other than for that already noted above, and at least 10 systems have been reviewed. Physical Exam Physical Exam: The patient is awake, alert and oriented 3, well developed and well nourished, normocephalic and atraumatic, lying in bed and in no acute distress. HEENT--PERRL, EOMI, mucous membranes and oropharynx normal. Neck--supple. No JVD. No bruits. Thyroid normal, trachea midline, no adenopathy. Heart--normal S1 and S2. No murmurs, rubs or gallops. Lungs--clear bilaterally, no respiratory distress, no accessory muscle use. Abdomen--normal bowel sounds and soft. Nontender. Nondistended. Extremities--no cyanosis or clubbing. No edema. Dermatologic--normal skin turgor, normal color, no abnormal lymph nodes, no rash. Neurologic--cranial nerves II through XII grossly intact. Rheumatologic--limited exam due to left hip dislocation Psychiatric--normal affect. Results & Data Results & Data ([facility]) Vital Signs (Past 12 Hours) Vital Signs Temp Pulse Resp BP Pulse Ox 03/14/21 18:00 68 14 131/79 99 03/14/21 17:00 63 16 134/77 97 03/14/21 16:00 62 18 114/68 94 03/14/21 15:20 65 18 139/85 94 03/14/21 15:00 73 18 117/64 03/14/21 14:10 68 16 111/76 97 03/14/21 13:25 98.6 F 66 14 115/75 97 Laboratory Results Laboratory Results WBC 6.19 K/uL (4.8-10.8) 03/14/21 14:08 RBC 2.64 M/uL (4.7-6.1) L 03/14/21 14:08 Hgb 8.7 g/dL (14.0-18.0) L 03/14/21 14:08 Hct 27.3 % (42-52) L 03/14/21 14:08 MCV 103.4 fL (80-100) H 03/14/21 14:08 MCH 33.0 pg (25-34) 03/14/21 14:08 MCHC 31.9 g/dL (32-36) L 03/14/21 14:08 RDW Std Deviation 62.9 fL (36.4-46.3) H 03/14/21 14:08 RDW Coeff of Peng 16.7 % (11.5-14.5) H 03/14/21 14:08 Plt Count 395 K/uL (130-400) 03/14/21 14:08 MPV 8.8 fL (7.4-10.4) 03/14/21 14:08 Immature Gran % (Auto) 0.3 % 03/14/21 14:08 Neut % (Auto) 76.3 % 03/14/21 14:08 Lymph % (Auto) 13.2 % 03/14/21 14:08 [place] % (Auto) 7.9 % 03/14/21 14:08 Eos % (Auto) 2.1 % 03/14/21 14:08 Baso % (Auto) 0.2 % 03/14/21 14:08 Neut # (Auto) 4.72 K/uL (1.4-6.5) 03/14/21 14:08 Lymph # (Auto) 0.82 K/uL (1.2-3.4) L 03/14/21 14:08 [place] # (Auto) 0.49 K/uL (0.11-0.59) 03/14/21 14:08 Eos # (Auto) 0.13 K/uL (0-0.5) 03/14/21 14:08 Baso # (Auto) 0.01 K/uL (0-0.2) 03/14/21 14:08 Immature Gran # (Auto) 0.02 K/uL (0.00-0.02) 03/14/21 14:08 PT 10.3 Seconds (9.0-12.0) 03/14/21 14:08 INR 1.0 (0.9-1.1) 03/14/21 14:08 APTT 32.5 Seconds (21.0-31.0) H 03/14/21 14:08 PTT Ratio 1.2 03/14/21 14:08 Sodium 138 mmol/L (136-145) 03/14/21 14:08 Potassium 3.1 mmol/L (3.5-5.1) L 03/14/21 14:08 Chloride 102 mmol/L (98-107) 03/14/21 14:08 Carbon Dioxide 31 mmol/L (21-32) 03/14/21 14:08 Anion Gap 5.0 (3-11) 03/14/21 14:08 BUN 12 mg/dl (7-18) 03/14/21 14:08 Creatinine 0.67 mg/dl (0.6-1.4) 03/14/21 14:08 Est Cr Clr Drug Dosing 132.9 ml/min 03/14/21 14:08 Est GFR ( Amer) 117.7 ml/min 03/14/21 14:08 Est GFR (Non-Af Amer) 101.5 ml/min 03/14/21 14:08 BUN/Creatinine Ratio 17.3 (10-20) 03/14/21 14:08 Glucose 95 mg/dl (70-99) 03/14/21 14:08 Calcium 8.5 mg/dl (8.5-10.1) 03/14/21 14:08 Total Bilirubin 0.2 mg/dl (0.2-1) 03/14/21 14:08 AST 9 U/L (15-37) L 03/14/21 14:08 ALT 13 U/L (12-78) 03/14/21 14:08 Alkaline Phosphatase 92 U/L (45-117) 03/14/21 14:08 Total Protein 7.2 gm/dl (6.4-8.2) 03/14/21 14:08 Albumin 2.5 gm/dl (3.4-5.0) L 03/14/21 14:08 Globulin 4.7 gm/dl (2.5-4.0) H 03/14/21 14:08 Albumin/Globulin Ratio 0.5 (0.9-2) L 03/14/21 14:08 Urine Color Yellow 03/14/21 16:15 Urine Appearance Clear (Clear) 03/14/21 16:15 Urine pH 6.0 (4.5-7.5) 03/14/21 16:15 Ur Specific [place] 1.013 (1.000-1.030) 03/14/21 16:15 Urine Protein Trace (Negative) H 03/14/21 16:15 Urine Glucose (UA) Negative (Negative) 03/14/21 16:15 Urine Ketones Negative (Negative) 03/14/21 16:15 Urine Blood Negative (Negative) 03/14/21 16:15 Urine Nitrite Negative (Negative) 03/14/21 16:15 Urine Bilirubin Negative (Negative) 03/14/21 16:15 Urine Urobilinogen Negative (Negative) 03/14/21 16:15 Ur Leukocyte Esterase 2+ (Negative) H 03/14/21 16:15 Urine WBC (Auto) 10-30 /hpf (0-5) H 03/14/21 16:15 Urine RBC (Auto) 5-10 /hpf (0-4) H 03/14/21 16:15 U Hyaline Cast (Auto) 5-10 /lpf (0-5) H 03/14/21 16:15 U Epithel Cells (Auto) 10-20 /lpf (0-5) H 03/14/21 16:15 Urine Bacteria (Auto) Negative (Negative) 03/14/21 16:15 COVID-19 Eval Order Covid19 at [facility] 03/14/21 14:11 SARS-CoV-2 (PCR) NEGATIVE (Negative) 03/14/21 14:11 Blood Type AB Positive 03/14/21 14:08 Antibody Screen NEGATIVE 03/14/21 14:08 Impressions Chest X-Ray 03/14/21 13:35 XR chest 1V portable HISTORY: Fall. hip fx/dislocation COMPARISON: Chest 08/21/2020. FINDINGS: No pneumothorax or no pleural effusions. The cardiac silhouette remains mildly enlarged. Mild right perihilar interstitial thickening which has improved. This suggests mild asymmetric congestive change. No new focal lung consolidations to suggest pneumonia. Large hiatus hernia. IMPRESSION: 1. Mild asymmetric pulmonary vascular congestion which has improved. 2. Large hiatus hernia, unchanged. ACT 112: Negative or not required by law. Electronically signed by: Andrade Mcfadden M.D. 03/14/2021 2:01 PM Hip X-Ray 03/14/21 13:35 XR hip LT min 2V CLINICAL HISTORY: left hip dislocation COMPARISON: CT of the left hip August 12, 2020. Left hip radiographs August 14, 2020. FINDINGS: Note is made of superior dislocation of the left femoral head with respect to the acetabulum which is new since prior radiographs of August 14, 2020. Severe osteoarthritis is noted with chronic flattening of the left femoral head and extensive osteophytosis. The acetabulum appears truncated with compared to prior exam. Superimposed fracture cannot be excluded. No proximal left femoral fracture is identified although sensitivity is diminished given extensive degenerative changes IMPRESSION: 1. Interval development of superior dislocation of the left femoral head. 2. Severe left hip osteoarthritis with extensive osteophytosis which decreases the sensitivity for detection of fractures. Acetabulum appears truncated. Superimposed fracture cannot be excluded. ACT 112: Negative or not required by law. Electronically signed by: Jerardo Moore M.D. 03/14/2021 2:[address] 03/14/21 14:53 CT hip LT wo con HISTORY: 65 years-old Male left hip dislocation/fracture? Acute left hip pain COMPARISON: [Radiographs of same day, CT abdomen and pelvis 08/12/2020 TECHNIQUE: Multiple axial CT images of the left hip were obtained without the use of IV contrast. A dose lowering technique was used consistent with the principals of ALDA. FINDINGS: Urinary bladder wall thickening with partial distention and Gardner catheter. Prostamegaly. Distended stool-filled rectum with rectal wall thickening and mild perirectal stranding. Severe chronic left hip osteoarthritis with chronic remodeling changes. Demineralized appearance of the bones. There are numerous corticated ossifications with periarticular debris surrounding the left femoral acetabular joint including bone fragments measuring up to 2.8 cm anterior to the anterior aspect of the acetabulum which have changed positioning from comparison. Large associated femoral acetabular joint effusion. No acute fracture line identified. The left femur is dislocated superiorly and posteriorly in relation to the acetabulum. IMPRESSION: 1. 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 Numerous corticated ossifications with calcified periarticular debris surrounding the left hip. These likely represent fragmented osteophytes. No acute fracture line identified. 2. Superior posterior dislocation of the femur in relation to the acetabulum. 3. Large left hip joint effusion. 4. Questioned stercoral proctitis. ACT 112: Negative or not required by law. The above report was generated using voice recognition software. It may contain grammatical, syntax or spelling errors. Electronically signed by: Pedro Lind M.D. 03/14/2021 3:39 PM Code Status & VTE Plan Code Status Full code VTE Prophylaxis Plan VTE Prophylaxis will be ordered: Yes PG Care Time/CCT Total # of Minutes Spent Total Time Spent with Patient: Total time spent is greater than 50% in coordination of care (as documented) at patient's floor/unit and/or counseling patient: Coding Level of Care Code 48404 Initial Inpt Care Lvl 3 Diagnoses Dislocation of left hip S73.005A HTN (hypertension) I10 HLD (hyperlipidemia) E78.5 Depression F32.9 Anxiety F41.9 Paranoid schizophrenia, chronic condition F20.0 Seizure disorder G40.909
[2021-03-14] MEDS ORDERED: LIDOCAINE 5% 1 PATCH TD PRN (23:30)
[2021-03-15] MEDS: FUROSEMIDE 40 MG TAB PO SCH ×3 (00:14→15:49)
[2021-03-15] MEDS: carBAMazepine 200 MG TABLET PO SCH ×3 (00:14→20:39)
[2021-03-15] MEDS: METOPROLOL TARTRATE 50 MG TAB PO SCH ×3 (00:14→20:39)
[2021-03-15 07:51] LABS: Basophils # (auto) 0.02 K/uL (0-0.2); Basophils % (auto) 0.3 %; Eosinophils # (auto) 0.12 K/uL (0-0.5); Eosinophils % (auto) 1.8 %; Hematocrit (blood only) 26.6 % (42-52); Hemoglobin 8.6 g/dL (14.0-18.0); Immature Granulocytes # (auto) 0.03 K/uL (0.00-0.02); Immature Granulocytes % (auto) 0.5 %; Lymphocytes # (auto) 0.79 K/uL (1.2-3.4); Lymphocytes % (auto) 12.1 %; Mean Corpuscular Hemoglobin 33.1 pg (25-34); Mean Corpuscular Hgb Conc 32.3 g/dL (32-36); Mean Corpuscular Volume 102.3 fL (80-100); Mean Platelet Volume 9.3 fL (7.4-10.4); Monocytes # (auto) 0.55 K/uL (0.11-0.59); Monocytes % (auto) 8.4 %; Neutrophils % (auto) 76.9 %; Platelet Count 385 K/uL (130-400); RDW Coefficient of Variation 16.8 % (11.5-14.5); RDW Standard Deviation 63.2 fL (36.4-46.3); White Blood Count 6.51 K/uL (4.8-10.8)
[2021-03-15] MEDS: traMADol HCL 50 MG TABLET PO PRN (08:15)
[2021-03-15] MEDS: ARIPiprazole 5 MG TAB PO SCH (08:15)
[2021-03-15] MEDS: VENLAFAXINE HCL XR 75 MG CAPXR PO SCH (08:16)
[2021-03-15] MEDS: FERROUS SULFATE 325 MG TAB PO SCH ×2 (08:16→15:49)
[2021-03-15] MEDS: ADVANCED PROBIOTIC 1250 MG CAPSULE PO SCH (08:16)
[2021-03-15] MEDS: BACLOFEN 20 MG TAB PO SCH (08:16)
[2021-03-15] MEDS: FOLIC ACID 1 MG TAB PO SCH (08:16)
[2021-03-15] MEDS: POTASSIUM CHLORIDE CRTAB 20 MEQ TABCR PO SCH (08:16)
[2021-03-15] MEDS: CYANOCOBALAMIN 500 MCG TABLET (VITAMIN B-12) PO SCH (08:16)
[2021-03-15] MEDS: GABAPENTIN 300 MG CAP PO SCH ×3 (08:16→21:35)
[2021-03-15] MEDS: ZINC SULFATE 220 MG CAPSULE PO SCH (08:16)
[2021-03-15] MEDS: VENLAFAXINE HCL XR 150 MG CAPXR PO SCH (08:17)
[2021-03-15] MEDS: CHOLECALCIFEROL 1,000 UNITS 25 MCG TAB PO SCH (08:17)
[2021-03-15] MEDS: ASCORBIC ACID 500 MG TAB PO SCH (08:17)
--- NOTE | 2021-03-15 08:20 | Hospitalist Progress Note ---
Date of Service March 15, 2021 Assessment & Plan (1) Dislocation of left hip: Plan: Dislocation of left hip- By patient's history, has been out for 3-4 weeks Per patient history also has been a recurrent issue and known to Dr Welch in the past CT LEFT HIP * 1. 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 Numerous corticated ossifications with calcified periarticular debris surrounding the left hip. These likely represent fragmented osteophytes. No acute fracture line identified. * 2. Superior posterior dislocation of the femur in relation to the acetabulum. * 3. Large left hip joint effusion. Ortho consult not place, but Dr. Welch apparently made aware by admitting team --> official consult placed Noted weakness and urine at [facility] --> ESBL Klebsiella and Pseudomonas and was placed on Cipro. Klebsiella resistant to Cipro and likely cause of incomplete treatment/weakness --> Repeat urine culture pending Would change Medina while inpatient if not already done at [facility] Will place on Zosyn empirically for now, which should also cover for possible stercoral proctocolitis. Will also add fleets enema Wound RN consulted for sacral wound (worse than d/c in July but no obvious infection noted) NPO after midnight if plans for intervention (2) Osteomyelitis: Plan: Seen by Dr. Gibbs for hx discitis/osteomyelitis in July with concurrent thoracic abscess empyema/MRSA bacteremia Repeat imaging this summer appears to have worsened --> Reported worsening back pain as well --> Repeating MRI and to include hip as well to r/o infection. Will also obtain set of blood cultures. If +, ECHO, however no murmur on examination and prior echo without vegetation noted (3) HTN (hypertension): Plan: Continue metoprolol tartrate 50 mg B p.o. twice daily with hold parameters BP stable 124/75 (4) HLD (hyperlipidemia): Plan: Continue atorvastatin 10 mg daily (5) Depression: Plan: Depression/anxiety/paranoid schizophrenia/seizure disorder- Continue Abilify, carbamazepine, gabapentin, and venlafaxine (6) Anxiety: Plan: See above (7) Paranoid schizophrenia, chronic condition: Plan: See above (8) Seizure disorder: Plan: See above (9) Thoracic abscess: Plan: hx of no sob reported stable on room air no white count at present CXR imrpoved from prior on admission (10) MRSA bacteremia: Plan: hx of Jul 2020 -- hospitalized for almost a month MRSA nasal positive but no respiratory symptoms, but may need to add Vancomycin continue to monitor (11) Weakness: Plan: Treatment as above PT/OT evals after seen by Ortho hx anemia --> hgb stable compared to baseline but macrocytic. Will repeat B12/folate with AM labs as well Bedbound at [facility] (previously wheelchair) Continue to monitor Admission and Anticipated Discharge Date Admission Date: March 14, 2021 Subjective Patient evaluated this afternoon. Confirms urine tested last week at [facility] and started on Cipro but discussed urine culture indicated Cipro not sufficient coverage. He has noted darkened cloudy urine but attempting to keep up with fluids. Eating/drinking here better than at [facility] but states he had lost about 60lb from hospitalizations and infections. He had repeat imaging by Dr Gibbs over the summer and stated he was told this just may be a chronic issue? No chronic immunosuppression noted but will consult ID if needed based on repeat back/pelvis imaging as hip may be infected per review by ortho spine this morning. Imaging pending Has not been see by ortho yet, but no official consultation was placed. He noted hip has been out for around 3 weeks at least. Uncomfortable when repositioning because "it flops around". He endorses slightly worse back pain than usual in region of mid/low back pain. Seen by wound RN this morning and instructions for buttocks lesions provided and he has been positioning to keep off of that. Sensation to B/lL LE intact and can wiggle toes, feel light touch, but notes he has increased weakness over the past several weeks. Said they stopped therapy at [facility] bc insurance ran out but he was finding this helpful. Discussed will have evals while inpatient and recs if needed, which are likely. Answering questions appropriately. Denies any fevers. Physical Exam Physical Exam: The patient is awake, alert and oriented 3, well developed, chronically ill appearing, lying up in bed, no acute distress noted HEENT: poor dentition, slightly dry mm Resp: faint end expiratory wheezing noted, diminished in the bases, bibasilar crackles, on room air, no cough, not tachypneic CV: RRR, no m/r/g, trace pedal edema ABD: +BS, soft, non-tender, no guarding or rigidity MSK: abnormal strength b/l LE, sensation intact to light touch, B/L legs turned outward, pulses palpable, cap refill wnl, able to wiggle toes but not lift legs (bedbound for the most part at [facility]) L hip superiorly posteriorly dislocated, non-tender to palpation, edema noted, no ecchymosis. tender to palpation thoracic/lumbar spine : medina draining concentrated cloudy urine Derm: skin dry, warm Psych: AOx3 Results & Data Results & Data ([facility]) Vital Signs (Past 12 Hours) Vital Signs Temp Pulse Pulse Resp BP BP Pulse Ox 03/15/21 07:36 36.7 C 70 22 124/75 97 03/14/21 22:39 36.7 C 83 16 113/75 98 03/14/21 22:00 83 18 125/75 96 03/14/21 21:00 76 16 130/95 97 Laboratory Results 03/15/21 03/15/21 03/14/21 Range/Units 06:44 06:44 23:12 WBC 6.51 (4.8-10.8) K/uL RBC 2.60 L (4.7-6.1) M/uL Hgb 8.6 L (14.0-18.0) g/dL Hct 26.6 L (42-52) % MCV 102.3 H (80-100) fL MCH 33.1 (25-34) pg MCHC 32.3 (32-36) g/dL RDW Std Deviation 63.2 H (36.4-46.3) fL RDW Coeff of Peng 16.8 H (11.5-14.5) % Plt Count 385 (130-400) K/uL MPV 9.3 (7.4-10.4) fL Immature Gran % (Auto) 0.5 % Neut % (Auto) 76.9 % Lymph % (Auto) 12.1 % [place] % (Auto) 8.4 % Eos % (Auto) 1.8 % Baso % (Auto) 0.3 % Neut # (Auto) 5.00 (1.4-6.5) K/uL Lymph # (Auto) 0.79 L (1.2-3.4) K/uL [place] # (Auto) 0.55 (0.11-0.59) K/uL Eos # (Auto) 0.12 (0-0.5) K/uL Baso # (Auto) 0.02 (0-0.2) K/uL Immature Gran # (Auto) 0.03 H (0.00-0.02) K/uL Sodium 139 (136-145) mmol/L Potassium 3.3 L (3.5-5.1) mmol/L Chloride 103 (98-107) mmol/L Carbon Dioxide 30 (21-32) mmol/L Anion Gap 5.0 (3-11) BUN 12 (7-18) mg/dl Creatinine 0.54 L (0.6-1.4) mg/dl Est Cr Clr Drug Dosing 166.2 ml/min Est GFR ( Amer) 128.6 ml/min Est GFR (Non-Af Amer) 111.0 ml/min BUN/Creatinine Ratio 23.0 H (10-20) Glucose 80 (70-99) mg/dl Calcium 8.8 (8.5-10.1) mg/dl Magnesium 1.8 (1.8-2.4) mg/dl Total Bilirubin 0.3 (0.2-1) mg/dl AST 9 L (15-37) U/L ALT 13 (12-78) U/L Alkaline Phosphatase 86 (45-117) U/L Total Protein 7.2 (6.4-8.2) gm/dl Albumin 2.4 L (3.4-5.0) gm/dl Globulin 4.8 H (2.5-4.0) gm/dl Albumin/Globulin Ratio 0.5 L (0.9-2) Urine Color Urine Appearance (Clear) Urine pH (4.5-7.5) Ur Specific [place] (1.000-1.030) Urine Protein (Negative) Urine Glucose (UA) (Negative) Urine Ketones (Negative) Urine Blood (Negative) Urine Nitrite (Negative) Urine Bilirubin (Negative) Urine Urobilinogen (Negative) Ur Leukocyte Esterase (Negative) Urine WBC (Auto) (0-5) /hpf Urine RBC (Auto) (0-4) /hpf U Hyaline Cast (Auto) (0-5) /lpf U Epithel Cells (Auto) (0-5) /lpf Urine Bacteria (Auto) (Negative) Nasal Screen MRSA (PCR) Positive A (Negative) SARS-CoV-2 (PCR) (Negative) Blood Type Antibody Screen 03/14/21 03/14/21 03/14/21 Range/Units 16:15 14:11 14:08 WBC (4.8-10.8) K/uL RBC (4.7-6.1) M/uL Hgb (14.0-18.0) g/dL Hct (42-52) % MCV (80-100) fL MCH (25-34) pg MCHC (32-36) g/dL RDW Std Deviation (36.4-46.3) fL RDW Coeff of Peng (11.5-14.5) % Plt Count (130-400) K/uL MPV (7.4-10.4) fL Immature Gran % (Auto) % Neut % (Auto) % Lymph % (Auto) % [place] % (Auto) % Eos % (Auto) % Baso % (Auto) % Neut # (Auto) (1.4-6.5) K/uL Lymph # (Auto) (1.2-3.4) K/uL [place] # (Auto) (0.11-0.59) K/uL Eos # (Auto) (0-0.5) K/uL Baso # (Auto) (0-0.2) K/uL Immature Gran # (Auto) (0.00-0.02) K/uL Sodium (136-145) mmol/L Potassium (3.5-5.1) mmol/L Chloride (98-107) mmol/L Carbon Dioxide (21-32) mmol/L Anion Gap (3-11) BUN (7-18) mg/dl Creatinine (0.6-1.4) mg/dl Est Cr Clr Drug Dosing ml/min Est GFR ( Amer) ml/min Est GFR (Non-Af Amer) ml/min BUN/Creatinine Ratio (10-20) Glucose (70-99) mg/dl Calcium (8.5-10.1) mg/dl Magnesium (1.8-2.4) mg/dl Total Bilirubin (0.2-1) mg/dl AST (15-37) U/L ALT (12-78) U/L Alkaline Phosphatase (45-117) U/L Total Protein (6.4-8.2) gm/dl Albumin (3.4-5.0) gm/dl Globulin (2.5-4.0) gm/dl Albumin/Globulin Ratio (0.9-2) Urine Color Yellow Urine Appearance Clear (Clear) Urine pH 6.0 (4.5-7.5) Ur Specific [place] 1.013 (1.000-1.030) Urine Protein Trace H (Negative) Urine Glucose (UA) Negative (Negative) Urine Ketones Negative (Negative) Urine Blood Negative (Negative) Urine Nitrite Negative (Negative) Urine Bilirubin Negative (Negative) Urine Urobilinogen Negative (Negative) Ur Leukocyte Esterase 2+ H (Negative) Urine WBC (Auto) 10-30 H (0-5) /hpf Urine RBC (Auto) 5-10 H (0-4) /hpf U Hyaline Cast (Auto) 5-10 H (0-5) /lpf U Epithel Cells (Auto) 10-20 H (0-5) /lpf Urine Bacteria (Auto) Negative (Negative) Nasal Screen MRSA (PCR) (Negative) SARS-CoV-2 (PCR) NEGATIVE (Negative) Blood Type AB Positive Antibody Screen NEGATIVE Diagnostic Findings Hip CT 03/14/21 14:53 CT hip LT wo con HISTORY: 65 years-old Male left hip dislocation/fracture? Acute left hip pain COMPARISON: [Radiographs of same day, CT abdomen and pelvis 08/12/2020 TECHNIQUE: Multiple axial CT images of the left hip were obtained without the use of IV contrast. A dose lowering technique was used consistent with the principals of ALARA. FINDINGS: Urinary bladder wall thickening with partial distention and Medina catheter. Prostamegaly. Distended stool-filled rectum with rectal wall thickening and mild perirectal stranding. Severe chronic left hip osteoarthritis with chronic remodeling changes. Demineralized appearance of the bones. There are numerous corticated ossifications with periarticular debris surrounding the left femoral acetabular joint including bone fragments measuring up to 2.8 cm anterior to the anterior aspect of the acetabulum which have changed positioning from comparison. Large associated femoral acetabular joint effusion. No acute fracture line identified. The left femur is dislocated superiorly and posteriorly in relation to the acetabulum. IMPRESSION: 1. 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 Numerous corticated ossifications with calcified periarticular debris surrounding the left hip. These likely represent fragmented osteophytes. No acute fracture line identified. 2. Superior posterior dislocation of the femur in relation to the acetabulum. 3. Large left hip joint effusion. 4. Questioned stercoral proctitis. ACT 112: Negative or not required by law. The above report was generated using voice recognition software. It may contain grammatical, syntax or spelling errors. Electronically signed by: Pedro Lind M.D. 03/14/2021 3:39 PM PG Care Time/CCT Total # of Minutes Spent Total Time Spent with Patient: Total time spent is greater than 50% in coordination of care (as documented) at patient's floor/unit and/or counseling patient: Coding Level of Care Code 69382 Subseq Hosp Care Lvl 3 Diagnoses Dislocation of left hip S73.005A HTN (hypertension) I10 HLD (hyperlipidemia) E78.5 Depression F32.9 Anxiety F41.9 Paranoid schizophrenia, chronic condition F20.0 Seizure disorder G40.909 Thoracic abscess J86.9 MRSA bacteremia R78.81; B95.62 Weakness R53.1 Osteomyelitis M86.9
[2021-03-15 08:25] LABS: Albumin Level 2.4 gm/dl (3.4-5.0); Calcium 8.8 mg/dl (8.5-10.1); Creatinine Clr Calc Pharmacy 166.2 ml/min; Est GFR (African American) 128.6 ml/min; Magnesium 1.8 mg/dl (1.8-2.4); Potassium 3.3 mmol/L (3.5-5.1)
[2021-03-15 08:28] LABS: Albumin Globulin Ratio 0.5 (0.9-2); Bilirubin,Total 0.3 mg/dl (0.2-1); Globulin 4.8 gm/dl (2.5-4.0); Total Protein 7.2 gm/dl (6.4-8.2)
[2021-03-15] MEDS ORDERED: IPRATROPIUM BROMIDE/ALBUTEROL respimat INH INH SCH (09:00)
[2021-03-15] MEDS: Albuterol HFA 8 GM Inhaler (Combivent Respimat P&T Subs) INH SCH ×5 (09:13→19:26)
[2021-03-15] MEDS: Ipratropium HFA Inhaler (Combivent Respimat P&T Subs) INH SCH ×5 (09:14→22:06)
[2021-03-15] MEDS ORDERED: POTASSIUM CHLORIDE CRTAB 20 MEQ TABCR PO STA (09:26)
[2021-03-15] MEDS: ONDANSETRON INJ 2 MG/ML 2 ML VIAL IV PRN (13:28)
[2021-03-15] MEDS ORDERED: PIPERACILL/TAZOBAC CONSULT ACTIVE PRN (14:49)
[2021-03-15] MEDS ORDERED: PIPERACILLIN/TAZOBACTAM 3.375 GM in DEXTROSE 5% 100 ML IV ONE (15:00)
[2021-03-15] MEDS ORDERED: SOD PHOSPHATE/SOD BIPHOSPHATE ENEMA 132 ML BTL PR STA (15:03)
--- NOTE | 2021-03-15 15:36 | Orthopedic Consultation ---
Date of Consultation March 15, 2021 Assessment & Plan (1) Chronic left hip pain: Patient seen and evaluated by Dr. uGtierrez. He's been seen by Dr. Gutierrez in the past. X-ray and CT scan of left hip shows severely Osteoarthritic, destructedleft hip joint. It appears that the femoral head is subluxed from the acetabulum. Multiple osteophytes and cystic changes noted. Loss of acetabular bone is noted on the CT scan. No evidence of an acute fracture. Patient has been nonambulatory for the last 8 months since July when he His back pain started. 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 He was seen and evaluated by Dr. Gibbs at the time and nonsurgical treatment was recommended. Since then his prickly legs have progressively worsened and weekend. He states he then went to a wheelchair and 2 months ago when his hip "dislocated" he has been on ambulating. He does not have any significant pain today. States it does hurt when it is moved but otherwise at rest he has no pain. This could be a neuropathic joint stemming from his injury to his back. Could also be flaccid paralysis resulting in no support for his left hip joint from his back discitis/osteomyelitis. He had been seen by Dr. Gutierrez in the past and was found to have severe osteoarthritis of his left hip and surgical intervention was recommended for total hip replacement. Patient states this was 8 to 10 years ago. He elected not to have the surgery. At this time surgical intervention is not recommended due to his history of having MRSA bacteremia and acute UTI and discitis/osteomyelitis of his thoracic spine. He is not painful and is nonambulatory at this time due to his back issues so would recommend conservative treatment. He may have a regular diet. He can be rolled from side to side and out of bed to a chair as tolerated. Would not recommend an MRI of his left hip at this time as it would not add anything more to his treatment. Discussed this with medicine and they will cancel the MRI of the left hip. Patient understands and agrees with the plan. No further treatment or recommendations from orthopedic surgery. Could obtain consultation after MRI of his thoracic and lumbar spines by Dr. Gibbs again for further treatment re commendation regarding his back.He also has known osteoarthritis of his left knee which could cause some occasional discomfort as well. Please Call our office with any questions or concerns at [phone]. Thank you for this consultation. History of Present Illness Reason for Consultation: Left hip dislocation Attending Physician: Mann Messer MD History of Present Illness Patient is here today after admission to the hospital for increased left hip pain. He was admitted by medicine and an orthopedic consult was placed. He reports having increased and worsening left hip pain over that past 4-8 weeks. He states that he has been bed bound since that time. He notes that with rolling him from side to side he feels that the hip is "floppy". He states that he knew it was disconnected. In July he fell at a friends house, was found to have some back pain and was found to have thoracic discitis and osteomyelitis. He had Neurological deficits at that time, he was seen by Dr. Gibbs. He was found to have MRSA sepsis and was transferred to [facility] [place], notes that he was on IV antibiotics for a "long time". Back pain continues to be present. He states that occasionally gets some spasms in both bilateral lower extremities as well as tingling. He says that he cannot really move his knee or lift his leg on his own on either leg. He states that over the last 2 months he has been nonambulatory but prior to that he was in a wheelchair. He states that he is comfortable in a wheelchair as it does causes that legs to go numb. He would like to walk again but is not sure of the thoughts feasible with all the other conditions that he does have. Denies any pain when resting in bed. Denies any recent fevers or chills. He has been at [facility] For the last 3 to 4 months. Allergies Allergy/AdvReac Type Severity Reaction Status Date / Time loxapine AdvReac Mild restless Verified 03/14/21 15:49 and nervous morphine AdvReac Mild nausea/vomi Verified 03/14/21 15:49 ting Home Medications Medication Instructions Recorded Confirmed Type venlafaxine 150 mg 150 mg PO QAM 01/13/19 03/14/21 History capsule,extended release 24 hr folic acid 1 mg tablet 1 mg PO QAM 07/21/20 03/14/21 History carbamazepine 200 mg tablet 600 mg PO BID 07/31/20 03/14/21 History (Tegretol) tamsulosin 0.4 mg capsule 0.4 mg PO HS #0 cap 08/23/20 03/14/21 Rx tramadol 50 mg tablet 50 mg PO TID PRN 10/23/20 03/14/21 History Lactobacillus acidophilus-pectin 1 cap PO QAM 03/14/21 03/14/21 History capsule aripiprazole 5 mg tablet (Abilify) 5 mg PO QAM 03/14/21 03/14/21 History ascorbic acid (vitamin C) 500 mg 500 mg PO QAM 03/14/21 03/14/21 History capsule atorvastatin 10 mg tablet 10 mg PO HS 03/14/21 03/14/21 History baclofen 10 mg tablet 20 mg PO QAM 03/14/21 03/14/21 History cholecalciferol (vitamin D3) 125 125 mcg PO QAM 03/14/21 03/14/21 History mcg (5,000 unit) tablet (Vitamin D3) ciprofloxacin HCl 250 mg tablet 250 mg PO BID 03/14/21 03/14/21 History (Cipro) cyanocobalamin (vitamin B-12) 1,000 mcg PO QAM 03/14/21 03/14/21 History 1,000 mcg tablet (Vitamin B-12) ferrous sulfate 325 mg (65 mg 325 mg PO BID 03/14/21 03/14/21 History iron) tablet furosemide 40 mg tablet 40 mg PO BID 03/14/21 03/14/21 History gabapentin 300 mg capsule 300 mg PO TID 03/14/21 03/14/21 History ipratropium 20 mcg-albuterol 100 1 puff INHALATION QID 03/14/21 03/14/21 History mcg/actuation mist for inhalation (Combivent Respimat) lidocaine 4 % topical patch 1 patch TOPICAL DAILY PRN 03/14/21 03/14/21 History metoprolol tartrate 50 mg tablet 50 mg PO BID 03/14/21 03/14/21 History nitrofurantoin 100 mg PO BID 03/14/21 03/14/21 History monohydrate/macrocrystals 100 mg capsule (Macrobid) potassium chloride 20 mEq 20 meq PO QAM 03/14/21 03/14/21 History tablet,extended release(part/cryst) venlafaxine 75 mg capsule,extended 75 mg PO QAM 03/14/21 03/14/21 History release 24 hr zinc 50 mg tablet 50 mg PO QAM 03/14/21 03/14/21 History Patient History Medical History OCTAVIO (acute kidney injury) Anemia Anxiety Depression GERD (gastroesophageal reflux disease) Hyperlipidemia Hypertension Hypothyroidism Morbid obesity due to excess calories MRSA bacteremia Obesity Osteoarthritis of hip Paranoid schizophrenia, chronic condition Seizure disorder last was 2002--on tegretol, follows with Dr. Vee Mcnulty Severe muscle deconditioning Shortness of breath Vitamin D deficiency Surgical History History of appendectomy History of cholecystectomy History of colonoscopy History of umbilical hernia repair History of wisdom tooth extraction Family History Father Family history of diabetes mellitus Mother Family history of diabetes mellitus Brother Family history of diabetes mellitus Other No family history of adverse response to anesthesia Social History Smoking Status: Former smoker Second Hand Exposure: No; Hx Alcohol Use: Yes Alcohol type: other Hx Substance Use: No Preferred Language: Nauruan Communication Ability: Effective Line Person Required: No Beliefs That Will Affect Care: None marital status: Single Current Living Situation: Retirement How many Children do You have: 0 Feels Safe at Home: Yes Assistive Devices: Glasses Physical Exam Musculoskeletal: Exam of bilateral lower extremities: Pain with ROM of left hip today when in bed. Otherwise he is resting comfortably. Is alert and oriented x3.. Both legs Held in an externally rotated position. 5-/5 toe and ankle dorsiflexion on the right and 4-/5 ankle/toe dorsi dorsiflexion on the left. Reflexes bilateral lower extremities trace at knee and ankle bilaterally Babinski's sign equivocal . 4-5 beats of clonus bilaterally. 1+ edema of left foot. Edema in left thigh/buttock area. No evidence of skin blisters or hematoma. Distal pulses 1+ No effusion left knee. Right hip flexion to 30 degrees without pain. Pain with movement of his left hip. Unable able straighten his leg with knee in flexion bilaterally Mild edema right foot. Pain with any movement of left knee or left hip. Results & Data ([facility]) Vital Signs (Past 12 Hours) Vital Signs Temp Pulse Resp BP Pulse Ox 03/15/21 13:27 18 94 03/15/21 09:15 74 18 96 03/15/21 07:36 36.7 C 70 22 124/75 97 Laboratory Results 03/15/21 03/15/21 03/14/21 Range/Units 06:44 06:44 23:12 WBC 6.51 (4.8-10.8) K/uL RBC 2.60 L (4.7-6.1) M/uL Hgb 8.6 L (14.0-18.0) g/dL Hct 26.6 L (42-52) % MCV 102.3 H (80-100) fL MCH 33.1 (25-34) pg MCHC 32.3 (32-36) g/dL RDW Std Deviation 63.2 H (36.4-46.3) fL RDW Coeff of Peng 16.8 H (11.5-14.5) % Plt Count 385 (130-400) K/uL MPV 9.3 (7.4-10.4) fL Immature Gran % (Auto) 0.5 % Neut % (Auto) 76.9 % Lymph % (Auto) 12.1 % Isabela % (Auto) 8.4 % Eos % (Auto) 1.8 % Baso % (Auto) 0.3 % Neut # (Auto) 5.00 (1.4-6.5) K/uL Lymph # (Auto) 0.79 L (1.2-3.4) K/uL Isabela # (Auto) 0.55 (0.11-0.59) K/uL Eos # (Auto) 0.12 (0-0.5) K/uL Baso # (Auto) 0.02 (0-0.2) K/uL Immature Gran # (Auto) 0.03 H (0.00-0.02) K/uL Sodium 139 (136-145) mmol/L Potassium 3.3 L (3.5-5.1) mmol/L Chloride 103 (98-107) mmol/L Carbon Dioxide 30 (21-32) mmol/L Anion Gap 5.0 (3-11) BUN 12 (7-18) mg/dl Creatinine 0.54 L (0.6-1.4) mg/dl Est Cr Clr Drug Dosing 166.2 ml/min Est GFR ( Amer) 128.6 ml/min Est GFR (Non-Af Amer) 111.0 ml/min BUN/Creatinine Ratio 23.0 H (10-20) Glucose 80 (70-99) mg/dl Calcium 8.8 (8.5-10.1) mg/dl Magnesium 1.8 (1.8-2.4) mg/dl Total Bilirubin 0.3 (0.2-1) mg/dl AST 9 L (15-37) U/L ALT 13 (12-78) U/L Alkaline Phosphatase 86 (45-117) U/L Total Protein 7.2 (6.4-8.2) gm/dl Albumin 2.4 L (3.4-5.0) gm/dl Globulin 4.8 H (2.5-4.0) gm/dl Albumin/Globulin Ratio 0.5 L (0.9-2) Urine Color Urine Appearance (Clear) Urine pH (4.5-7.5) Ur Specific [place] (1.000-1.030) Urine Protein (Negative) Urine Glucose (UA) (Negative) Urine Ketones (Negative) Urine Blood (Negative) Urine Nitrite (Negative) Urine Bilirubin (Negative) Urine Urobilinogen (Negative) Ur Leukocyte Esterase (Negative) Urine WBC (Auto) (0-5) /hpf Urine RBC (Auto) (0-4) /hpf U Hyaline Cast (Auto) (0-5) /lpf U Epithel Cells (Auto) (0-5) /lpf Urine Bacteria (Auto) (Negative) Nasal Screen MRSA (PCR) Positive A (Negative) 03/14/21 Range/Units 16:15 WBC (4.8-10.8) K/uL RBC (4.7-6.1) M/uL Hgb (14.0-18.0) g/dL Hct (42-52) % MCV (80-100) fL MCH (25-34) pg MCHC (32-36) g/dL RDW Std Deviation (36.4-46.3) fL RDW Coeff of Peng (11.5-14.5) % Plt Count (130-400) K/uL MPV (7.4-10.4) fL Immature Gran % (Auto) % Neut % (Auto) % Lymph % (Auto) % Isabela % (Auto) % Eos % (Auto) % Baso % (Auto) % Neut # (Auto) (1.4-6.5) K/uL Lymph # (Auto) (1.2-3.4) K/uL Isabela # (Auto) (0.11-0.59) K/uL Eos # (Auto) (0-0.5) K/uL Baso # (Auto) (0-0.2) K/uL Immature Gran # (Auto) (0.00-0.02) K/uL Sodium (136-145) mmol/L Potassium (3.5-5.1) mmol/L Chloride (98-107) mmol/L Carbon Dioxide (21-32) mmol/L Anion Gap (3-11) BUN (7-18) mg/dl Creatinine (0.6-1.4) mg/dl Est Cr Clr Drug Dosing ml/min Est GFR ( Amer) ml/min Est GFR (Non-Af Amer) ml/min BUN/Creatinine Ratio (10-20) Glucose (70-99) mg/dl Calcium (8.5-10.1) mg/dl Magnesium (1.8-2.4) mg/dl Total Bilirubin (0.2-1) mg/dl AST (15-37) U/L ALT (12-78) U/L Alkaline Phosphatase (45-117) U/L Total Protein (6.4-8.2) gm/dl Albumin (3.4-5.0) gm/dl Globulin (2.5-4.0) gm/dl Albumin/Globulin Ratio (0.9-2) Urine Color Yellow Urine Appearance Clear (Clear) Urine pH 6.0 (4.5-7.5) Ur Specific [place] 1.013 (1.000-1.030) Urine Protein Trace H (Negative) Urine Glucose (UA) Negative (Negative) Urine Ketones Negative (Negative) Urine Blood Negative (Negative) Urine Nitrite Negative (Negative) Urine Bilirubin Negative (Negative) Urine Urobilinogen Negative (Negative) Ur Leukocyte Esterase 2+ H (Negative) Urine WBC (Auto) 10-30 H (0-5) /hpf Urine RBC (Auto) 5-10 H (0-4) /hpf U Hyaline Cast (Auto) 5-10 H (0-5) /lpf U Epithel Cells (Auto) 10-20 H (0-5) /lpf Urine Bacteria (Auto) Negative (Negative) Nasal Screen MRSA (PCR) (Negative) Blood cultures are drawn and pending. Diagnostic Findings CT hip LT wo con HISTORY: 65 years-old Male left hip dislocation/fracture? Acute left hip pain COMPARISON: [Radiographs of same day, CT abdomen and pelvis 08/12/2020 TECHNIQUE: Multiple axial CT images of the left hip were obtained without the use of IV contrast. A dose lowering technique was used consistent with the principals of ALDA. FINDINGS: Urinary bladder wall thickening with partial distention and Gardner catheter. Prostamegaly. Distended stool-filled rectum with rectal wall thickening and mild perirectal stranding. Severe chronic left hip osteoarthritis with chronic remodeling changes. Demineralized appearance of the bones. There are numerous corticated ossifications with periarticular debris surrounding the left femoral acetabular joint including bone fragments measuring up to 2.8 cm anterior to the anterior aspect of the acetabulum which have changed positioning from comparison. Large associated femoral acetabular joint effusion. No acute fracture line identified. The left femur is dislocated superiorly and posteriorly in relation to the acet abulum. IMPRESSION: 1. 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 Numerous corticated ossifications with calcified periarticular debris surrounding the left hip. These likely represent fragmented osteophytes. No acute fracture line identified. 2. Superior posterior dislocation of the femur in relation to the acetabulum. 3. Large left hip joint effusion. 4. Questioned stercoral proctitis. XR hip LT min 2V CLINICAL HISTORY: left hip dislocation COMPARISON: CT of the left hip August 12, 2020. Left hip radiographs August 14, 2020. FINDINGS: Note is made of superior dislocation of the left femoral head with respect to the acetabulum which is new since prior radiographs of August 14, 2020. Severe osteoarthritis is noted with chronic flattening of the left femoral head and extensive osteophytosis. The acetabulum appears truncated with compared to prior exam. Superimposed fracture cannot be excluded. No proximal left femoral fracture is identified although sensitivity is diminished given extensive degenerative changes IMPRESSION: 1. Interval development of superior dislocation of the left femoral head. 2. Severe left hip osteoarthritis with extensive osteophytosis which decreases the sensitivity for detection of fractures. Acetabulum appears truncated. Superimposed fracture cannot be excluded. Xray of right hip ordered per patient request - some mild pain. X-rays pending MRI of lumbar/thoracic and left hip are pending.
--- NOTE | 2021-03-15 16:41 | Progress Notes ---
The patient is known to me from prior visits. I last saw him in July of this past year. He had fallen and I evaluated his hip. He had had ongoing chronic severe left hip arthritis. At that time, he was having some spinal problems and he was diagnosed with a thoracic diskitis and osteomyelitis. He had some neurological deficits and nonsurgical treatment was apparently recommended by Dr. Gibbs. The patient eventually made his way to the [facility] where he has been since after July. He has not ambulated since July. About 2 months ago, he noted a disconnected feeling in the left hip that the left leg would flap somewhat when he was moved around. He denies any significant hip pain. An x-ray was obtained at the [facility], which showed an abnormality and he was sent here and eventually admitted. He has a positive nasal MRSA swab. He is afebrile. His vital signs are stable. His white count is normal, hemoglobin 9, hematocrit 27. His PRP is noted. On evaluation, he is resting comfortably in bed. He is awake, alert and responsive. Both legs are lying in an externally rotated position. He cannot actively lift his legs or bend his knees. He has 5-/5 ankle and toe plantar flexion strength on the right. He cannot lift his heel off the bed on either side with the knee slightly flexed. He has 4-/5 strength on ankle dorsiflexion and plantar flexion on the left. Reflexes are trace at the knee and ankle bilaterally. The Babinski's sign is equivocal. There is 4-5 beats of clonus bilaterally. His circulation is intact. There is mild enlargement, induration and edema of the left hip. No tenderness to palpation. There is minimal left hip and knee range of motion. He is also known to have left knee arthritis. The right hip can be flexed to about 30 degrees without major discomfort. The x-rays and CT are reviewed. The x-rays demonstrate radiographic displacement of the femoral head in relationship to the acetabulum, although it is very difficult to see this based upon the severe nature of the arthritis that is present. CT scan shows that there is noncongruent alignment of the femoral head within the acetabulum consistent with subluxation/dislocation. There is severe bone wear in the acetabulum with loss of bone support and there is no fracture. There is severe deformity of the femoral head. IMPRESSION: 1. History of spinal osteomyelitis with neurological compromise. 2. Severe arthritis of the left hip with degenerative subluxation/dislocation. 3. History of MRSA. PLAN: Findings are discussed. It sounds like he has developed lower extremity weakness secondary to some element of disuse, but also may be related to his spine infection. The hip is degeneratively malaligned. It does not have bony support, which would allow a reduction to occur. Furthermore, the patient has lower extremity weakness, which affects the muscle tone across the hip and also may contribute to the problem. He is nonambulatory. I would recommend a reevaluation by Dr. Gibbs from the [facility] if this has not already been done. I do not think any intervention is necessary at this point in regard to the hip. Intervention to try to reduce it would not be successful. Surgical intervention to replace it given the status of his neurological function would not be indicated. He is not in any significant pain at this point and I would recommend comfort measures, conservative management, bed to chair transfer and use of a wheelchair. We will be happy to follow and monitor. We will obtain an x-ray of his right hip at his request.left hip changes could be neuropathic. Job ID: [id number] [facility]
--- NOTE | 2021-03-15 17:08 | XRay Report ---
XR hip RT min 2V CLINICAL HISTORY: Right hip pain; DJD COMPARISON STUDY: Pelvis 05/06/2013. FINDINGS: No fracture or dislocation within the right hip. There is mild to moderate cartilage space narrowing and small marginal osteophytes within the right hip consistent with osteoarthritis. This is similar to the prior study. No soft tissue swelling. The visualized pelvic bones are intact. IMPRESSION: Mild to moderate osteoarthritis within the right hip. No fractures. ACT 112: Negative or not required by law. Electronically signed by: Andrade Mcfadden M.D. 03/15/2021 5:07 PM
--- NOTE | 2021-03-15 17:23 | Electrocardiogram Report ---
Test Reason : Blood Pressure : / mmHG Vent. Rate : 071 BPM Atrial Rate : 071 BPM P-R Int : 254 ms QRS Dur : 112 ms QT Int : 410 ms P-R-T Axes : 055 020 025 degrees QTc Int : 445 ms Sinus rhythm Premature atrial complexes Otherwise normal ECG When compared with ECG of 24-JUL-2020 10:04, No significant change Confirmed by Frank Pearson ([id number]) on 03/15/2021 5:23:17 PM Referred By: REFERRED SELF Confirmed By:Frank Pearson
[2021-03-15] MEDS: ATORVASTATIN 10 MG TAB PO SCH (20:38)
[2021-03-15] MEDS: PIPERACILLIN/TAZOBACTAM 3.375 GM in DEXTROSE 5% 100 ML IV SCH (20:38)
[2021-03-15] MEDS: TAMSULOSIN HCL 0.4 MG CAP PO SCH (20:39)
[2021-03-16] MEDS: PIPERACILLIN/TAZOBACTAM 3.375 GM in DEXTROSE 5% 100 ML IV SCH ×3 (05:01→21:58)
[2021-03-16 06:40] LABS: Basophils # (auto) 0.02 K/uL (0-0.2); Basophils % (auto) 0.3 %; Eosinophils # (auto) 0.12 K/uL (0-0.5); Eosinophils % (auto) 1.7 %; Hematocrit (blood only) 27.4 % (42-52); Hemoglobin 8.7 g/dL (14.0-18.0); Immature Granulocytes # (auto) 0.03 K/uL (0.00-0.02); Immature Granulocytes % (auto) 0.4 %; Lymphocytes # (auto) 0.82 K/uL (1.2-3.4); Lymphocytes % (auto) 11.6 %; Mean Corpuscular Hgb Conc 31.8 g/dL (32-36); Mean Corpuscular Volume 103.8 fL (80-100); Mean Platelet Volume 8.5 fL (7.4-10.4); Monocytes # (auto) 0.74 K/uL (0.11-0.59); Monocytes % (auto) 10.5 %; Neutrophils # (auto) 5.35 K/uL (1.4-6.5); Neutrophils % (auto) 75.5 %; Platelet Count 349 K/uL (130-400); RDW Coefficient of Variation 16.7 % (11.5-14.5); RDW Standard Deviation 63.8 fL (36.4-46.3); Red Blood Count 2.64 M/uL (4.7-6.1); White Blood Count 7.08 K/uL (4.8-10.8)
[2021-03-16 07:14] LABS: Albumin Globulin Ratio 0.5 (0.9-2); Albumin Level 2.5 gm/dl (3.4-5.0); BUN Creatinine Ratio 16.2 (10-20); Bilirubin,Total 0.3 mg/dl (0.2-1); Calcium 8.6 mg/dl (8.5-10.1); Creatinine Clr Calc Pharmacy 109.5 ml/min; Est GFR (African American) 108.3 ml/min; Est GFR (Non-African American) 93.5 ml/min; Globulin 4.7 gm/dl (2.5-4.0); Magnesium 1.9 mg/dl (1.8-2.4); Total Protein 7.2 gm/dl (6.4-8.2)
[2021-03-16 07:18] LABS: Ferritin 605.5 ng/ml (8-388)
[2021-03-16 07:22] LABS: Folate (Folic Acid) > 20.00 ng/ml (>5.38); Vitamin B12 567 pg/ml (193-986)
[2021-03-16] MEDS: Ipratropium HFA Inhaler (Combivent Respimat P&T Subs) INH SCH ×4 (07:54→19:53)
[2021-03-16] MEDS: Albuterol HFA 8 GM Inhaler (Combivent Respimat P&T Subs) INH SCH ×4 (07:55→19:54)
--- NOTE | 2021-03-16 08:51 | Magnetic Resonance Report ---
THORACIC SPINE MRI HISTORY: Back pain. hip dislocation, hx discitis/osteomyelitis, empyema TECHNIQUE: Multiplanar multisequence MRI of the thoracic spine was performed without the use of contr ast. COMPARISON: Thoracic spine MRI 01/09/2021. FINDINGS: Heterogeneous marrow signal intensity seen throughout the visualized osseous structures, unchanged. N o acute fracture or subluxation within the thoracic spine. Decrease in size within the fluid located within the T10-11 disc space. There is persistent erosive change at the T10-T11 level consistent with improvement of the discitis/osteomyelitis. The focal right paravertebral fluid collection at the T10 -11 level has almost completely resolved and measures 2.3 x 1.1 cm. No significant left paravertebral fluid collection at this location. Bilateral paravertebral edema/fluid collections, right greater th an left, and bilateral loculated pleural effusions have improved. The small posterior epidural fluid collection at the T9-T11 levels seen on the prior study has almost completely resolved in the interva l. There is trace epidural fluid remaining at this location. Moderate to severe central canal narrowi ng at the T10-11 level with mild cord deformity and mild cord edema is not significantly changed. Imp rovement with near complete resolution of the fluid signal within the T8-T9 disc space level. Moderat e anterior wedging at T10 and T11 remain unchanged. Multilevel degenerative changes again noted. IMPRESSION: 1. Overall, interval improvement in the discitis/osteomyelitis at the T8-T9 and T10-11 levels with im provement in the trace epidural fluid collection, paravertebral fluid collections, paravertebral martin a, and bilateral loculated pleural effusions. 2. No significant change in the moderate to severe central canal narrowing at the T10-11 level with a ssociated mild cord deformity and cord edema. ACT 112: Negative or not required by law. Electronically signed by: Andrade Mcfadden M.D. 03/16/2021 8:49 AM
--- NOTE | 2021-03-16 08:58 | Magnetic Resonance Report ---
LUMBAR SPINE MRI HISTORY: hip dislocation, hx discitis/osteomyelitis. Back pain. TECHNIQUE: Multiplanar multisequence MRI of the lumbar spine was performed without the use of contras t. COMPARISON: Lumbar spine MRI 10/04/2020. FINDINGS:Lumbar spine: Marrow signal intensity is markedly heterogeneous. Vertebral body height and a lignment are maintained throughout the lumbar spine. Anterior and lateral marginal osteophytes are se en throughout. The transverse and spinous processes appear intact. There is no spondylolysis. Chronic degenerative endplate change is seen at all lumbar levels. No significant endplate edema is identifi ed. No erosive change is identified. No destructive bony lesion is seen. Intervertebral discs: Degenerative disc desiccation and loss of height are seen throughout the lumbar spine. Loss of height is moderate at L5-S1. Spinal cord: The visualized spinal cord is normal in morphology and signal intensity. The conus medul esau terminates at the level of L1. The nerve roots of the cauda equina are normal in morphology. No abnormal postcontrast enhancement is identified. There is no evidence of epidural fluid collection t hroughout the lumbar spine. L1-L2: Mild facet arthropathy is of no consequence. The central canal and neural foramina are patent. L2-L3: Mild facet arthropathy is of no consequence. The central canal and neural foramina are patent. L3-L4: There is mild posterior disc bulge. This causes bilateral subarticular stenosis and abuts the transiting bilateral nerve roots. Mild facet arthropathy is of no consequence. The neural foramina ar e patent. L4-L5: There is a small posterior disc bulge. There is mild central canal stenosis at this level with a minimum AP diameter of 8mm. There is bilateral subarticular stenosis with probable impingement on the exiting bilateral L4 nerve roots. In conjunction with facet arthropathy, there is severe bilatera l neural foraminal stenosis. L5-S1: There is broad-based posterior disc bulge with annular fissure. There is also broad-based left paracentral disc protrusion which abuts and displaces the transiting left S1 nerve root. This also a buts the transiting right S1 nerve root. The minimum AP canal diameter measures 9 mm. There is bilate ral subarticular stenosis, left greater than right with probable impingement on the exiting bilateral L5 and the transiting bilateral S1 nerve roots. In conjunction with facet arthropathy, there is johny re bilateral neural foraminal stenosis. Sacrum: The visualized sacrum is normal in morphology and signal intensity. Soft tissues: Mild edema within the iliopsoas and paraspinal muscles have improved in the interval. IMPRESSION: 1. Mild edema within the iliopsoas and paraspinal muscles which has improved in the interval. No epid ural or paraspinal fluid collections identified. 2. Lumbosacral spondylosis as above. See discussion for detailed level by level analysis. This is sim ilar to the prior examination. 3. Marrow signal intensity is heterogeneous with no destructive bony lesion identified. 4. Degenerative disc disease as above. ACT 112: Negative or not required by law. Electronically signed by: Andrade Mcfadden M.D. 03/16/2021 8:56 AM
[2021-03-16] MEDS: POTASSIUM CHLORIDE CRTAB 20 MEQ TABCR PO SCH (09:13)
[2021-03-16] MEDS: GABAPENTIN 300 MG CAP PO SCH ×3 (09:13→21:59)
[2021-03-16] MEDS: ASCORBIC ACID 500 MG TAB PO SCH (09:13)
[2021-03-16] MEDS: CHOLECALCIFEROL 1,000 UNITS 25 MCG TAB PO SCH (09:13)
[2021-03-16] MEDS: ADVANCED PROBIOTIC 1250 MG CAPSULE PO SCH (09:14)
[2021-03-16] MEDS: carBAMazepine 200 MG TABLET PO SCH ×2 (09:14→22:00)
[2021-03-16] MEDS: BACLOFEN 20 MG TAB PO SCH (09:14)
[2021-03-16] MEDS: METOPROLOL TARTRATE 50 MG TAB PO SCH ×2 (09:14→22:00)
[2021-03-16] MEDS: FOLIC ACID 1 MG TAB PO SCH (09:14)
[2021-03-16] MEDS: ARIPiprazole 5 MG TAB PO SCH (09:14)
[2021-03-16] MEDS: VENLAFAXINE HCL XR 150 MG CAPXR PO SCH (09:15)
[2021-03-16] MEDS: CYANOCOBALAMIN 500 MCG TABLET (VITAMIN B-12) PO SCH (09:15)
[2021-03-16] MEDS: FERROUS SULFATE 325 MG TAB PO SCH ×2 (09:15→17:04)
[2021-03-16] MEDS: VENLAFAXINE HCL XR 75 MG CAPXR PO SCH (09:15)
--- NOTE | 2021-03-16 09:33 | Hospitalist Progress Note ---
Date of Service March 16, 2021 Assessment & Plan (1) Dislocation of left hip: Plan: Dislocation of left hip- By patient's history, has been out for 3-4 weeks Per patient history also has been a recurrent issue and known to Dr Welch in the past CT LEFT HIP * 1. 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 Numerous corticated ossifications with calcified periarticular debris surrounding the left hip. These likely represent fragmented osteophytes. No acute fracture line identified. * 2. Superior posterior dislocation of the femur in relation to the acetabulum. * 3. Large left hip joint effusion. Ortho consult not place, but Dr. Welch apparently made aware by admitting team --> official consult placed. No intervention planned due to muscle atrophy/poor bone support to allow for successful reduction in chronic issue. Repeat thoracic/lumbar spine MRI with improvement but still w edema/chronic findings Rec'd ortho spine consult -- already discussed. Obtaining L hip MRI, CRP, ESR. Will review with Dr. Gibbs in AM pending MRI Noted weakness and urine at residential --> ESBL Klebsiella and Pseudomonas and was placed on Cipro. Klebsiella resistant to Cipro and likely cause of incomplete treatment/weakness --> Repeat urine culture pending -- NO GROWTH though. Medina changed at residential 03/13 Zosyn empirically for now, which should also cover for possible stercoral proct ocolitis. Will also add fleets enema Wound RN consulted for sacral wound (worse than d/c in July but no obvious infection noted) (2) Osteomyelitis: Plan: Seen by Dr. Gibbs for hx discitis/osteomyelitis in July with concurrent thoracic abscess empyema/MRSA bacteremia Repeat imaging this summer appears to have worsened --> Reported worsening back pain as well --> Repeating MRI and to include hip as well to r/o infection. Will also obtain set of blood cultures. If +, ECHO, however no murmur on examination and prior echo without vegetation noted Repeat MRI with some improvement but still w cord edema resulting in likely permanent paraplegia MRI of L hip rec'd as above, ESR, CRP Will discuss findings with Dr. Gibbs in AM. Possible infection in hip macrobid/cipro as prophylaxis? If worsening may need to consider transferring to outside facility (3) HTN (hypertension): Plan: Continue metoprolol tartrate 50 mg B p.o. twice daily with hold parameters BP stable (4) HLD (hyperlipidemia): Plan: Continue atorvastatin 10 mg daily (5) Depression: Plan: Depression/anxiety/paranoid schizophrenia/seizure disorder- Continue Abilify, carbamazepine, gabapentin, and venlafaxine (6) Anxiety: Plan: See above (7) Paranoid schizophrenia, chronic condition: Plan: See above (8) Seizure disorder: Plan: See above (9) Thoracic abscess: Plan: hx of no sob reported stable on room air no white count at present CXR imrpoved from prior on admission (10) MRSA bacteremia: Plan: hx of Jul 2020 -- hospitalized for almost a month MRSA nasal positive but no respiratory symptoms, but may need to add Vancomycin -- will await findings of continue to monitor (11) Weakness: Plan: Treatment as above PT/OT evals after seen by Ortho hx anemia --> hgb stable compared to baseline but macrocytic. B12/folate wnl Add TSH to AM labs Urine as above Treating for abd coverage as above w Zosyn but may add Vanco pending findings of MRI L hip as above --> May have permanent damage per convo w ortho spine Bedbound at [facility] (previously wheelchair) Continue to monitor Admission and Anticipated Discharge Date Admission Date: March 14, 2021 Subjective Patient evaluated this morning. Reviewed back imaging and recs by spine doc for L hip MRI -- to be done today. Ortho ordered hip x-ray for R hip last night, which did not show any fractures, but also not hip of concern. Having some nausea after breakfast this morning. Had boost for first time in a while and he believes that may be contributing. [place] not had a bowel movement and discussed that may also be contributing (passing lots of gas and active BS on exam though). No chest pain or shortness of breath reported, no vomiting. Will have RN address and change medina catheter if needed ---> reportedly done on 03/13 after infxn and will hold off at this time/ Continuing on ZOsyn for proctitis concerns. Review of Systems Review of Systems: All systems reviewed & are unremarkable except as noted in HPI & below Physical Exam Physical Exam: The patient is awake, alert and oriented 3, well developed, chronically ill appearing, lying up in bed, no acute distress noted HEENT: poor dentition, slightly dry mm Resp: faint end expiratory wheezing noted, diminished in the bases, bibasilar crackles, on room air, no cough, not tachypneic CV: RRR, no m/r/g, trace pedal edema ABD: +BS, soft, non-tender, no guarding or rigidity MSK: abnormal strength b/l LE, sensation intact to light touch, B/L legs turned outward, pulses palpable, cap refill wnl, able to wiggle toes but not lift legs (bedbound for the most part at [facility]), no clonus appreciated L hip superiorly posteriorly dislocated, non-tender to palpation, effusion/edema noted, no ecchymosis. tender to palpation thoracic/lumbar spine : medina draining clearer yellow urine Derm: skin dry, warm Psych: AOx3 Results & Data Results & Data ([facility]) Vital Signs (Past 12 Hours) Vital Signs Temp Pulse Resp BP Pulse Ox 03/16/21 07:55 82 16 90 03/16/21 07:00 36.4 C L 68 20 102/66 97 Laboratory Results 03/16/21 03/16/21 03/16/21 Range/Units 06:25 06:25 06:25 WBC 7.08 (4.8-10.8) K/uL RBC 2.64 L (4.7-6.1) M/uL Hgb 8.7 L (14.0-18.0) g/dL Hct 27.4 L (42-52) % MCV 103.8 H (80-100) fL MCH 33.0 (25-34) pg MCHC 31.8 L (32-36) g/dL RDW Std Deviation 63.8 H (36.4-46.3) fL RDW Coeff of Peng 16.7 H (11.5-14.5) % Plt Count 349 (130-400) K/uL MPV 8.5 (7.4-10.4) fL Immature Gran % (Auto) 0.4 % Neut % (Auto) 75.5 % Lymph % (Auto) 11.6 % Gaston % (Auto) 10.5 % Eos % (Auto) 1.7 % Baso % (Auto) 0.3 % Neut # (Auto) 5.35 (1.4-6.5) K/uL Lymph # (Auto) 0.82 L (1.2-3.4) K/uL Gaston # (Auto) 0.74 H (0.11-0.59) K/uL Eos # (Auto) 0.12 (0-0.5) K/uL Baso # (Auto) 0.02 (0-0.2) K/uL Immature Gran # (Auto) 0.03 H (0.00-0.02) K/uL Sodium 138 (136-145) mmol/L Potassium 3.0 L (3.5-5.1) mmol/L Chloride 103 (98-107) mmol/L Carbon Dioxide 32 (21-32) mmol/L Anion Gap 3.0 (3-11) BUN 13 (7-18) mg/dl Creatinine 0.82 (0.6-1.4) mg/dl Est Cr Clr Drug Dosing 109.5 ml/min Est GFR ( Amer) 108.3 ml/min Est GFR (Non-Af Amer) 93.5 ml/min BUN/Creatinine Ratio 16.2 (10-20) Glucose 92 (70-99) mg/dl Calcium 8.6 (8.5-10.1) mg/dl Magnesium 1.9 (1.8-2.4) mg/dl Iron 47 (35-175) mcg/dl TIBC 194 L (250-450) mcg/dl Transferrin 156 L (200-360) mg/dl Transferrin % Sat 21 (20-50) % Ferritin 605.5 H (8-388) ng/ml Total Bilirubin 0.3 (0.2-1) mg/dl AST 9 L (15-37) U/L ALT 12 (12-78) U/L Alkaline Phosphatase 83 (45-117) U/L Total Protein 7.2 (6.4-8.2) gm/dl Albumin 2.5 L (3.4-5.0) gm/dl Globulin 4.7 H (2.5-4.0) gm/dl Albumin/Globulin Ratio 0.5 L (0.9-2) Vitamin B12 567 (193-986) pg/ml Folate > 20.00 (>5.38) ng/ml Diagnostic Findings Thoracic Spine MRI 03/15/21 09:27 THORACIC SPINE MRI HISTORY: Back pain. hip dislocation, hx discitis/osteomyelitis, empyema TECHNIQUE: Multiplanar multisequence MRI of the thoracic spine was performed without the use of contrast. COMPARISON: Thoracic spine MRI 01/09/2021. FINDINGS: Heterogeneous marrow signal intensity seen throughout the visualized osseous structures, unchanged. No acute fracture or subluxation within the thoracic spine. Decrease in size within the fluid located within the T10-11 disc space. There is persistent erosive change at the T10-T11 level consistent with improvement of the discitis/osteomyelitis. The focal right paravertebral fluid collection at the T10-11 level has almost completely resolved and measures 2.3 x 1.1 cm. No significant left paravertebral fluid collection at this location. Bilateral paravertebral edema/fluid collections, right greater than left, and bilateral loculated pleural effusions have improved. The small posterior epidural fluid collection at the T9-T11 levels seen on the prior study has almost completely resolved in the interval. There is trace epidural fluid remaining at this location. Moderate to severe central canal narrowing at the T10-11 level with mild cord deformity and mild cord edema is not significantly changed. Improvement with near complete resolution of the fluid signal within the T8-T9 disc space level. Moderate anterior wedging at T10 and T11 remain unchanged. Multilevel degenerative changes again noted. IMPRESSION: 1. Overall, interval improvement in the discitis/osteomyelitis at the T8-T9 and T10-11 levels with improvement in the trace epidural fluid collection, paravertebral fluid collections, paravertebral edema, and bilateral loculated pleural effusions. 2. No significant change in the moderate to severe central canal narrowing at the T10-11 level with associated mild cord deformity and cord edema. ACT 112: Negative or not required by law. Electronically signed by: Andrade Mcfadden M.D. 03/16/2021 8:49 AM Lumbar Spine MRI 03/15/21 09:33 LUMBAR SPINE MRI HISTORY: hip dislocation, hx discitis/osteomyelitis. Back pain. TECHNIQUE: Multiplanar multisequence MRI of the lumbar spine was performed without the use of contrast. COMPARISON: Lumbar spine MRI 10/04/2020. FINDINGS:Lumbar spine: Marrow signal intensity is markedly heterogeneous. Vertebral body height and alignment are maintained throughout the lumbar spine. Anterior and lateral marginal osteophytes are seen throughout. The transverse and spinous processes appear intact. There is no spondylolysis. Chronic degenerative endplate change is seen at all lumbar levels. No significant endplate edema is identified. No erosive change is identified. No destructive bony lesion is seen. Intervertebral discs: Degenerative disc desiccation and loss of height are seen throughout the lumbar spine. Loss of height is moderate at L5-S1. Spinal cord: The visualized spinal cord is normal in morphology and signal intensity. The conus medullaris terminates at the level of L1. The nerve roots of the cauda equina are normal in morphology. No abnormal postcontrast enhancement is identified. There is no evidence of epidural fluid collection throughout the lumbar spine. L1-L2: Mild facet arthropathy is of no consequence. The central canal and neural foramina are patent. L2-L3: Mild facet arthropathy is of no consequence. The central canal and neural foramina are patent. L3-L4: There is mild posterior disc bulge. This causes bilateral subarticular stenosis and abuts the transiting bilateral nerve roots. Mild facet arthropathy is of no consequence. The neural foramina are patent. L4-L5: There is a small posterior disc bulge. There is mild central canal stenosis at this level with a minimum AP diameter of 8mm. There is bilateral subarticular stenosis with probable impingement on the exiting bilateral L4 nerve roots. In conjunction with facet arthropathy, there is severe bilateral neural foraminal stenosis. L5-S1: There is broad-based posterior disc bulge with annular fissure. There is also broad-based left paracentral disc protrusion which abuts and displaces the transiting left S1 nerve root. This also abuts the transiting right S1 nerve root. The minimum AP canal diameter measures 9 mm. There is bilateral subarticular stenosis, left greater than right with probable impingement on the exiting bilateral L5 and the transiting bilateral S1 nerve roots. In conjunction with facet arthropathy, there is severe bilateral neural foraminal stenosis. Sacrum: The visualized sacrum is normal in morphology and signal intensity. Soft tissues: Mild edema within the iliopsoas and paraspinal muscles have improved in the interval. IMPRESSION: 1. Mild edema within the iliopsoas and paraspinal muscles which has improved in the interval. No epidural or paraspinal fluid collections identified. 2. Lumbosacral spondylosis as above. See discussion for detailed level by level analysis. This is similar to the prior examination. 3. Marrow signal intensity is heterogeneous with no destructive bony lesion identified. 4. Degenerative disc disease as above. ACT 112: Negative or not required by law. Electronically signed by: Andrade Mcfadden M.D. 03/16/2021 8:56 AM Hip X-Ray 03/15/21 15:34 XR hip RT min 2V CLINICAL HISTORY: Right hip pain; DJD COMPARISON STUDY: Pelvis 05/06/2013. FINDINGS: No fracture or dislocation within the right hip. There is mild to moderate cartilage space narrowing and small marginal osteophytes within the right hip consistent with osteoarthritis. This is similar to the prior study. No soft tissue swelling. The visualized pelvic bones are intact. IMPRESSION: Mild to moderate osteoarthritis within the right hip. No fractures. ACT 112: Negative or not required by law. Electronically signed by: Andrade Mcfadden M.D. 03/15/2021 5:07 PM PG Care Time/CCT Total # of Minutes Spent Total Time Spent with Patient: Total time spent is greater than 50% in coordination of care (as documented) at patient's floor/unit and/or counseling patient: Coding Level of Care Code 60119 Subseq Hosp Care Lvl 3 Diagnoses Dislocation of left hip S73.005A Osteomyelitis M86.9 HTN (hypertension) I10 HLD (hyperlipidemia) E78.5 Depression F32.9 Anxiety F41.9 Paranoid schizophrenia, chronic condition F20.0 Seizure disorder G40.909 Thoracic abscess J86.9 MRSA bacteremia R78.81; B95.62 Weakness R53.1
[2021-03-16] MEDS ORDERED: POTASSIUM CHLORIDE CRTAB 20 MEQ TABCR PO STA (09:36)
[2021-03-16] MEDS: traMADol HCL 50 MG TABLET PO PRN (11:18)
[2021-03-16] MEDS: ZINC SULFATE 220 MG CAPSULE PO SCH (11:18)
[2021-03-16] MEDS: FUROSEMIDE 40 MG TAB PO SCH ×2 (11:18→17:04)
[2021-03-16] MEDS: ONDANSETRON INJ 2 MG/ML 2 ML VIAL IV PRN ×2 (11:19→19:31)
--- NOTE | 2021-03-16 19:16 | Magnetic Resonance Report ---
MRI OF THE LEFT HIP WITHOUT IV CONTRAST CLINICAL HISTORY: Pain. Left hip dislocation. Effusion. COMPARISON STUDY: CT scan of the left hip dated 03/14/2021. Radiograph of left hip dated 03/14/2021. TECHNIQUE: MRI of the left hip is performed using various T1 and T2-weighted sequences in the axial, sagittal, coronal planes. The patient declined IV contrast. The examination is compromised by motion artifact. FINDINGS: Marrow signal intensity is markedly heterogeneous. Again seen is posterior/superior disloca tion of the femoral head in relation to the acetabulum. Severe chronic osteoarthritic change of the l eft hip is similar to the 03/14/2021 CT scan. There is a large complex joint effusion with numerous juanjo ne fragments. There is also fluid in the overlying iliopsoas bursa. There is significant marrow edema identified within the femoral head, neck, and intertrochanteric region. No definite acute fracture i s identified. There is chronic flattening of the femoral head. No clear cortical erosion is identifie d. Mild marrow edema is noted in the acetabulum. The right hip and the bony pelvis are intact as visu alized. There is significant soft tissue edema identified around the left hip with edema in the left iliopsoas, adductor, and gluteal musculature. A Gardner catheter is in place. The bladder is decompress ed. There is no free fluid in the pelvis. No inguinal or pelvic sidewall adenopathy is identified. Th e origin of the hamstrings tendons appears intact. IMPRESSION: 1. Again seen is posterior/superior dislocation of the left femoral head in relationship to the aceta bulum. 2. No definite fracture is seen. 3. Severe left hip osteoarthritis with chronic remodeling and flattening of the femoral head. There i s associated marrow edema within the left proximal femur and the acetabulum. 4. There is no definite fracture. No clear cortical destruction/bony erosion is identified. 5. Large complex joint effusion with numerous bony fragments and fluid in the iliopsoas bursa. The st erility of this fluid cannot be evaluated by MRI. 6. Soft tissue edema overlies the left hip, with significant intramuscular edema involving the left i liopsoas, adductor, and gluteal muscles. 7. Additional findings as above. Dictated: 03/16/2021 5:34 PM Transcribed: 03/16/2021 7:11 PM Kimberly [id number] [email or web address]_[email or web address] Electronically signed by: Patrice Leonard M.D. 03/16/2021 7:15 PM
[2021-03-16] MEDS: TAMSULOSIN HCL 0.4 MG CAP PO SCH (21:59)
[2021-03-16] MEDS: ATORVASTATIN 10 MG TAB PO SCH (22:00)
[2021-03-17] MEDS: PIPERACILLIN/TAZOBACTAM 3.375 GM in DEXTROSE 5% 100 ML IV SCH ×3 (04:40→21:03)
[2021-03-17] MEDS: traMADol HCL 50 MG TABLET PO PRN ×2 (07:01→19:18)
[2021-03-17 07:40] LABS: Basophils # (auto) 0.03 K/uL (0-0.2); Basophils % (auto) 0.5 %; Eosinophils # (auto) 0.14 K/uL (0-0.5); Eosinophils % (auto) 2.3 %; Hematocrit (blood only) 25.5 % (42-52); Immature Granulocytes # (auto) 0.03 K/uL (0.00-0.02); Immature Granulocytes % (auto) 0.5 %; Lymphocytes # (auto) 1.02 K/uL (1.2-3.4); Mean Corpuscular Hemoglobin 32.7 pg (25-34); Mean Corpuscular Hgb Conc 31.4 g/dL (32-36); Mean Corpuscular Volume 104.1 fL (80-100); Mean Platelet Volume 8.8 fL (7.4-10.4); Monocytes # (auto) 0.55 K/uL (0.11-0.59); Monocytes % (auto) 9.2 %; Neutrophils # (auto) 4.22 K/uL (1.4-6.5); Neutrophils % (auto) 70.5 %; Platelet Count 357 K/uL (130-400); RDW Coefficient of Variation 16.7 % (11.5-14.5); RDW Standard Deviation 64.7 fL (36.4-46.3); Red Blood Count 2.45 M/uL (4.7-6.1); White Blood Count 5.99 K/uL (4.8-10.8)
[2021-03-17] MEDS: Ipratropium HFA Inhaler (Combivent Respimat P&T Subs) INH SCH ×4 (08:07→19:56)
[2021-03-17] MEDS: Albuterol HFA 8 GM Inhaler (Combivent Respimat P&T Subs) INH SCH ×4 (08:08→19:57)
[2021-03-17 08:09] LABS: Albumin Level 2.4 gm/dl (3.4-5.0); BUN Creatinine Ratio 27.8 (10-20); C Reactive Protein 7.8 mg/dl (0-0.29); Calcium 8.6 mg/dl (8.5-10.1); Creatinine Clr Calc Pharmacy 142.5 ml/min; Est GFR (African American) 120.7 ml/min; Est GFR (Non-African American) 104.1 ml/min; Magnesium 1.9 mg/dl (1.8-2.4); Potassium 3.1 mmol/L (3.5-5.1)
[2021-03-17 08:12] LABS: Albumin Globulin Ratio 0.5 (0.9-2); Bilirubin,Total 0.3 mg/dl (0.2-1); Globulin 4.4 gm/dl (2.5-4.0); Total Protein 6.8 gm/dl (6.4-8.2)
[2021-03-17] MEDS ORDERED: bisacodyL 10 MG SUPP PR STA (08:17)
--- NOTE | 2021-03-17 08:20 | Hospitalist Progress Note ---
Date of Service March 17, 2021 Assessment & Plan (1) Dislocation of left hip: Plan: Dislocation of left hip- By patient's history, has been out for 3-4 weeks Per patient history also has been a recurrent issue and known to Dr Welch in the past CT LEFT HIP * 1. 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 Numerous corticated ossifications with calcified periarticular debris surrounding the left hip. These likely represent fragmented osteophytes. No acute fracture line identified. * 2. Superior posterior dislocation of the femur in relation to the acetabulum. * 3. Large left hip joint effusion. Ortho consult not place, but Dr. Welch apparently made aware by admitting team --> official consult placed. No intervention planned due to muscle atrophy/poor bone support to allow for successful reduction in chronic issue. Repeat thoracic/lumbar spine MRI with improvement but still w edema/chronic findings likely contributing to LE symptoms Rec'd ortho spine consult -- already discussed. Obtaining L hip MRI, CRP, ESR. ESR, CRP elevated, concerning for infection to L hip Zosyn/Vanco empirically for now (Vanco added hx MRSA bacteremia), which should also cover for possible stercoral proctocolitis. BCx NGTD Wound RN consulted for sacral wound (worse than d/c in July but no obvious infection noted) MRI L Hip * 1. Again seen is posterior/superior dislocation of the left femoral head in relationship to the acetabulum. * 2. No definite fracture is seen. * 3. Severe left hip osteoarthritis with chronic remodeling and flattening of the femoral head. There is associated marrow edema within the left proximal femur and the acetabulum. * 4. There is no definite fracture. No clear cortical destruction/bony erosion is identified. * 5. Large complex joint effusion with numerous bony fragments and fluid in the iliopsoas bursa. The sterility of this fluid cannot be evaluated by MRI. * 6. Soft tissue edema overlies the left hip, with significant intramuscular edema involving the left iliopsoas, adductor, and gluteal muscles. ESR elevated 75--> 49 CRP 6.7 --> 7.8 (was 04 August) Discussed with radiology and plans to have CT guided aspiration. Unable to place order in system for actual study, and was placed as "Joint Injection" and radiology to have changed. Will need to order gs/cx/cell count/studies on fluid once completed Noted weakness and urine at snf --> ESBL Klebsiella and Pseudomonas Repeat urine cx NGTD Medina changed at snf 03/13 (2) Osteomyelitis: Plan: Seen by Dr. Gibbs for hx discitis/osteomyelitis in July with concurrent thoracic abscess empyema/MRSA bacteremia Repeat imaging this summer appears to have worsened --> Reported worsening back pain as well --> Repeating MRI and to include hip as well to r/o infection. Will also obtain set of blood cultures -- ngtd 24 hrs If +, ECHO, however no murmur on examination and prior echo without vegetation noted Repeat MRI with some improvement but still w cord edema resulting in likely permanent paraplegia MRI of L hip rec'd as above, ESR, CRP Will discuss findings with Dr. Gibbs in AM. Possible infection in hip -- MRI as above macrobid/cipro as prophylaxis? If worsening may need to consider transferring to outside facility after aspiration and repeat eval tomorrow with Dr. Gibbs. (3) HTN (hypertension): Plan: Continue metoprolol tartrate 50 mg B p.o. twice daily with hold parameters BP stable (4) HLD (hyperlipidemia): Plan: Continue atorvastatin 10 mg daily (5) Depression: Plan: Depression/anxiety/paranoid schizophrenia/seizure disorder- Continue Abilify, carbamazepine, gabapentin, and venlafaxine (6) Anxiety: Plan: See above (7) Paranoid schizophrenia, chronic condition: Plan: See above (8) Seizure disorder: Plan: See above (9) Thoracic abscess: Plan: hx of no sob reported stable on room air no white count at present CXR imrpoved from prior on admission (10) MRSA bacteremia: Plan: hx of Jul 2020 -- hospitalized for almost a month MRSA nasal positive but no respiratory symptoms Given hx MRSA bacteremia and fluid collection L hip, added Vanco BCx remain NGTD -- monitor (11) Weakness: Plan: Treatment as above PT/OT evals after seen by Ortho hx anemia --> hgb stable compared to baseline but macrocytic. B12/folate wnl TSH wnl Urine as above -- recent tx ESBL ecoli/pseudomonas. repeat urine cx negative Treating for abd coverage as above w Zosyn/Vanco based on findings of MRI L hip as above --> May have permanent damage per convo w ortho spine Bedbound at [facility] (previously wheelchair) Continue to monitor Plan: CT guided aspiration L hip tomorrow by radiology Will need studies for fluid for analysis Likely will need continued treatment at tertiary facility moving forward but did discuss w/ Dr Gibbs and ford to continue current course/aspiration for AM Consult for ID placed 03/16 but likely to see Thursday (if waiting consider [employer] as they have been responsive the past week when backed up on consultations waiting several days) Admission and Anticipated Discharge Date Admission Date: March 14, 2021 Subjective Patient evaluated this afternoon. Feeling OK. Pain controlled. Weakness at baseline (which has worsened over past 4 weeks since dislocation) Discussed MRI with concerns of infection to L hip. Radiology for aspiration tomorrow morning but but could possibly need transfer to tertiary facility. Discussed with Dr Gibbs and ford to keep inpatient on current abx regimen and await aspiration. Patient states passing lots of gas, appetite fair. No fever, chills, chest pain. Shortness of breath at baseline earlier this morning but improved with ordered inhaler. No other concerns/complaints at this time. Review of Systems Review of Systems: All systems reviewed & are unremarkable except as noted in HPI & below Physical Exam Physical Exam: The patient is awake, alert and oriented 3, generalized atrophy chronically ill appearing, lying up in bed, no acute distress noted HEENT: poor dentition, slightly dry mm (improved) Resp: faint end expiratory wheezing noted, diminished in the bases, bibasilar crackles, on room air, no cough, not tachypneic CV: RRR, no m/r/g, trace pedal edema ABD: +BS, soft, non-tender, no guarding or rigidity MSK: abnormal strength b/l LE, sensation intact to light touch, B/L legs turned outward, pulses palpable, cap refill wnl, able to wiggle toes but not lift legs (bedbound for the most part at [facility]), decreased DTRs, muscular atrophy, no clonus appreciated L hip superiorly posteriorly dislocated, non-tender to palpation, effusion/edema noted, no ecchymosis. tender to palpation thoracic/lumbar spine : medina draining clearer yellow urine Derm: skin warm, erythema to b/l buttocks with stoma powder (improved) Psych: AOx3 Results & Data Results & Data ([facility]) Vital Signs (Past 12 Hours) Vital Signs Temp Pulse Resp BP Pulse Ox 03/17/21 08:09 71 16 97 03/17/21 07:37 36.8 C 74 20 112/67 96 03/16/21 21:57 36.8 C 88 14 123/75 94 Laboratory Results 03/17/21 03/17/21 03/17/21 Range/Units 07:19 07:19 07:19 WBC 5.99 (4.8-10.8) K/uL RBC 2.45 L (4.7-6.1) M/uL Hgb 8.0 L (14.0-18.0) g/dL Hct 25.5 L (42-52) % MCV 104.1 H (80-100) fL MCH 32.7 (25-34) pg MCHC 31.4 L (32-36) g/dL RDW Std Deviation 64.7 H (36.4-46.3) fL RDW Coeff of Peng 16.7 H (11.5-14.5) % Plt Count 357 (130-400) K/uL MPV 8.8 (7.4-10.4) fL Immature Gran % (Auto) 0.5 % Neut % (Auto) 70.5 % Lymph % (Auto) 17.0 % Bailey % (Auto) 9.2 % Eos % (Auto) 2.3 % Baso % (Auto) 0.5 % Neut # (Auto) 4.22 (1.4-6.5) K/uL Lymph # (Auto) 1.02 L (1.2-3.4) K/uL Bailey # (Auto) 0.55 (0.11-0.59) K/uL Eos # (Auto) 0.14 (0-0.5) K/uL Baso # (Auto) 0.03 (0-0.2) K/uL Immature Gran # (Auto) 0.03 H (0.00-0.02) K/uL ESR 49 H (0-20) mm/hr Sodium 140 (136-145) mmol/L Potassium 3.1 L (3.5-5.1) mmol/L Chloride 103 (98-107) mmol/L Carbon Dioxide 30 (21-32) mmol/L Anion Gap 7.0 (3-11) BUN 18 (7-18) mg/dl Creatinine 0.63 (0.6-1.4) mg/dl Est Cr Clr Drug Dosing 142.5 ml/min Est GFR ( Amer) 120.7 ml/min Est GFR (Non-Af Amer) 104.1 ml/min BUN/Creatinine Ratio 27.8 H (10-20) Glucose 90 (70-99) mg/dl Calcium 8.6 (8.5-10.1) mg/dl Magnesium 1.9 (1.8-2.4) mg/dl Total Bilirubin 0.3 (0.2-1) mg/dl AST 9 L (15-37) U/L ALT 14 (12-78) U/L Alkaline Phosphatase 75 (45-117) U/L C-Reactive Protein 7.80 H (0-0.29) mg/dl Total Protein 6.8 (6.4-8.2) gm/dl Albumin 2.4 L (3.4-5.0) gm/dl Globulin 4.4 H (2.5-4.0) gm/dl Albumin/Globulin Ratio 0.5 L (0.9-2) 03/16/21 03/16/21 Range/Units 06:25 06:25 WBC (4.8-10.8) K/uL RBC (4.7-6.1) M/uL Hgb (14.0-18.0) g/dL Hct (42-52) % MCV (80-100) fL MCH (25-34) pg MCHC (32-36) g/dL RDW Std Deviation (36.4-46.3) fL RDW Coeff of Peng (11.5-14.5) % Plt Count (130-400) K/uL MPV (7.4-10.4) fL Immature Gran % (Auto) % Neut % (Auto) % Lymph % (Auto) % Bailey % (Auto) % Eos % (Auto) % Baso % (Auto) % Neut # (Auto) (1.4-6.5) K/uL Lymph # (Auto) (1.2-3.4) K/uL Bailey # (Auto) (0.11-0.59) K/uL Eos # (Auto) (0-0.5) K/uL Baso # (Auto) (0-0.2) K/uL Immature Gran # (Auto) (0.00-0.02) K/uL ESR 75 H (0-20) mm/hr Sodium (136-145) mmol/L Potassium (3.5-5.1) mmol/L Chloride (98-107) mmol/L Carbon Dioxide (21-32) mmol/L Anion Gap (3-11) BUN (7-18) mg/dl Creatinine (0.6-1.4) mg/dl Est Cr Clr Drug Dosing ml/min Est GFR ( Amer) ml/min Est GFR (Non-Af Amer) ml/min BUN/Creatinine Ratio (10-20) Glucose (70-99) mg/dl Calcium (8.5-10.1) mg/dl Magnesium (1.8-2.4) mg/dl Total Bilirubin (0.2-1) mg/dl AST (15-37) U/L ALT (12-78) U/L Alkaline Phosphatase (45-117) U/L C-Reactive Protein 6.70 H (0-0.29) mg/dl Total Protein (6.4-8.2) gm/dl Albumin (3.4-5.0) gm/dl Globulin (2.5-4.0) gm/dl Albumin/Globulin Ratio (0.9-2) Diagnostic Findings Thoracic Spine MRI 03/15/21 09:27 THORACIC SPINE MRI HISTORY: Back pain. hip dislocation, hx discitis/osteomyelitis, empyema TECHNIQUE: Multiplanar multisequence MRI of the thoracic spine was performed without the use of contrast. COMPARISON: Thoracic spine MRI 01/09/2021. FINDINGS: Heterogeneous marrow signal intensity seen throughout the visualized osseous structures, unchanged. No acute fracture or subluxation within the thoracic spine. Decrease in size within the fluid located within the T10-11 disc space. There is persistent erosive change at the T10-T11 level consistent with improvement of the discitis/osteomyelitis. The focal right paravertebral fluid collection at the T10-11 level has almost completely resolved and measures 2.3 x 1.1 cm. No significant left paravertebral fluid collection at this location. Bilateral paravertebral edema/fluid collections, right greater than left, and bilateral loculated pleural effusions have improved. The small posterior epidural fluid collection at the T9-T11 levels seen on the prior study has almost completely resolved in the interval. There is trace epidural fluid remaining at this location. Moderate to severe central canal narrowing at the T10-11 level with mild cord deformity and mild cord edema is not significantly changed. Improvement with near complete resolution of the fluid signal within the T8-T9 disc space level. Moderate anterior wedging at T10 and T11 remain unchanged. Multilevel degenerative changes again noted. IMPRESSION: 1. Overall, interval improvement in the discitis/osteomyelitis at the T8-T9 and T10-11 levels with improvement in the trace epidural fluid collection, paravertebral fluid collections, paravertebral edema, and bilateral loculated pleural effusions. 2. No significant change in the moderate to severe central canal narrowing at the T10-11 level with associated mild cord deformity and cord edema. ACT 112: Negative or not required by law. Electronically signed by: Andrade Mcfadden M.D. 03/16/2021 8:49 AM Lumbar Spine MRI 03/15/21 09:33 LUMBAR SPINE MRI HISTORY: hip dislocation, hx discitis/osteomyelitis. Back pain. TECHNIQUE: Multiplanar multisequence MRI of the lumbar spine was performed without the use of contrast. COMPARISON: Lumbar spine MRI 10/04/2020. FINDINGS:Lumbar spine: Marrow signal intensity is markedly heterogeneous. Vertebral body height and alignment are maintained throughout the lumbar spine. Anterior and lateral marginal osteophytes are seen throughout. The transverse and spinous processes appear intact. There is no spondylolysis. Chronic degenerative endplate change is seen at all lumbar levels. No significant endplate edema is identified. No erosive change is identified. No destructive bony lesion is seen. Intervertebral discs: Degenerative disc desiccation and loss of height are seen throughout the lumbar spine. Loss of height is moderate at L5-S1. Spinal cord: The visualized spinal cord is normal in morphology and signal intensity. The conus medullaris terminates at the level of L1. The nerve roots of the cauda equina are normal in morphology. No abnormal postcontrast enhancement is identified. There is no evidence of epidural fluid collection throughout the lumbar spine. L1-L2: Mild facet arthropathy is of no consequence. The central canal and neural foramina are patent. L2-L3: Mild facet arthropathy is of no consequence. The central canal and neural foramina are patent. L3-L4: There is mild posterior disc bulge. This causes bilateral subarticular stenosis and abuts the transiting bilateral nerve roots. Mild facet arthropathy is of no consequence. The neural foramina are patent. L4-L5: There is a small posterior disc bulge. There is mild central canal stenos is at this level with a minimum AP diameter of 8mm. There is bilateral subarticular stenosis with probable impingement on the exiting bilateral L4 nerve roots. In conjunction with facet arthropathy, there is severe bilateral neural foraminal stenosis. L5-S1: There is broad-based posterior disc bulge with annular fissure. There is also broad-based left paracentral disc protrusion which abuts and displaces the transiting left S1 nerve root. This also abuts the transiting right S1 nerve root. The minimum AP canal diameter measures 9 mm. There is bilateral subarticular stenosis, left greater than right with probable impingement on the exiting bilateral L5 and the transiting bilateral S1 nerve roots. In conjunction with facet arthropathy, there is severe bilateral neural foraminal stenosis. Sacrum: The visualized sacrum is normal in morphology and signal intensity. Soft tissues: Mild edema within the iliopsoas and paraspinal muscles have improved in the interval. IMPRESSION: 1. Mild edema within the iliopsoas and paraspinal muscles which has improved in the interval. No epidural or paraspinal fluid collections identified. 2. Lumbosacral spondylosis as above. See discussion for detailed level by level analysis. This is similar to the prior examination. 3. Marrow signal intensity is heterogeneous with no destructive bony lesion identified. 4. Degenerative disc disease as above. ACT 112: Negative or not required by law. Electronically signed by: Andrade Mcfadden M.D. 03/16/2021 8:56 AM Hip MRI 03/16/21 10:20 MRI OF THE LEFT HIP WITHOUT IV CONTRAST CLINICAL HISTORY: Pain. Left hip dislocation. Effusion. COMPARISON STUDY: CT scan of the left hip dated 03/14/2021. Radiograph of left hip dated 03/14/2021. TECHNIQUE: MRI of the left hip is performed using various T1 and T2-weighted sequences in the axial, sagittal, coronal planes. The patient declined IV contrast. The examination is compromised by motion artifact. FINDINGS: Marrow signal intensity is markedly heterogeneous. Again seen is posterior/superior dislocation of the femoral head in relation to the acetabulum. Severe chronic osteoarthritic change of the left hip is similar to the 03/14/2021 CT scan. There is a large complex joint effusion with numerous bone fragments. There is also fluid in the overlying iliopsoas bursa. There is significant marrow edema identified within the femoral head, neck, and intertrochanteric region. No definite acute fracture is identified. There is chronic flattening of the femoral head. No clear cortical erosion is identified. Mild marrow edema is noted in the acetabulum. The right hip and the bony pelvis are intact as visualized. There is significant soft tissue edema identified around the left hip with edema in the left iliopsoas, adductor, and gluteal musculature. A Medina catheter is in place. The bladder is decompressed. There is no free fluid in the pelvis. No inguinal or pelvic sidewall adenopathy is lucille ntified. The origin of the hamstrings tendons appears intact. IMPRESSION: 1. Again seen is posterior/superior dislocation of the left femoral head in relationship to the acetabulum. 2. No definite fracture is seen. 3. Severe left hip osteoarthritis with chronic remodeling and flattening of the femoral head. There is associated marrow edema within the left proximal femur and the acetabulum. 4. There is no definite fracture. No clear cortical destruction/bony erosion is identified. 5. Large complex joint effusion with numerous bony fragments and fluid in the iliopsoas bursa. The sterility of this fluid cannot be evaluated by MRI. 6. Soft tissue edema overlies the left hip, with significant intramuscular edema involving the left iliopsoas, adductor, and gluteal muscles. 7. Additional findings as above. Dictated: 03/16/2021 5:34 PM Transcribed: 03/16/2021 7:11 PM Kimberly [id number] [email or web address] Electronically signed by: Patrice Leonard M.D. 03/16/2021 7:15 PM PG Care Time/CCT Total # of Minutes Spent Total Time Spent with Patient: Total time spent is greater than 50% in coordination of care (as documented) at patient's floor/unit and/or counseling patient: Coding Level of Care Code 62760 Subseq Hosp Care Lvl 3 Diagnoses Dislocation of left hip S73.005A Osteomyelitis M86.9 HTN (hypertension) I10 HLD (hyperlipidemia) E78.5 Depression F32.9 Anxiety F41.9 Paranoid schizophrenia, chronic condition F20.0 Seizure disorder G40.909 Thoracic abscess J86.9 MRSA bacteremia R78.81; B95.62 Weakness R53.1
[2021-03-17] MEDS: carBAMazepine 200 MG TABLET PO SCH ×2 (08:55→21:04)
[2021-03-17] MEDS: ZINC SULFATE 220 MG CAPSULE PO SCH (08:56)
[2021-03-17] MEDS: METOPROLOL TARTRATE 50 MG TAB PO SCH ×2 (08:56→21:04)
[2021-03-17] MEDS: GABAPENTIN 300 MG CAP PO SCH ×3 (08:56→21:04)
[2021-03-17] MEDS: CHOLECALCIFEROL 1,000 UNITS 25 MCG TAB PO SCH (08:57)
[2021-03-17] MEDS: FOLIC ACID 1 MG TAB PO SCH (08:57)
[2021-03-17] MEDS: BACLOFEN 20 MG TAB PO SCH (08:57)
[2021-03-17] MEDS: FERROUS SULFATE 325 MG TAB PO SCH ×2 (08:57→18:15)
[2021-03-17] MEDS: CYANOCOBALAMIN 500 MCG TABLET (VITAMIN B-12) PO SCH (08:57)
[2021-03-17] MEDS: VENLAFAXINE HCL XR 150 MG CAPXR PO SCH (08:57)
[2021-03-17] MEDS: ADVANCED PROBIOTIC 1250 MG CAPSULE PO SCH (08:57)
[2021-03-17] MEDS: ARIPiprazole 5 MG TAB PO SCH (08:57)
[2021-03-17] MEDS: VENLAFAXINE HCL XR 75 MG CAPXR PO SCH (08:57)
[2021-03-17] MEDS: ASCORBIC ACID 500 MG TAB PO SCH (08:57)
[2021-03-17] MEDS: POTASSIUM CHLORIDE CRTAB 20 MEQ TABCR PO SCH (08:58)
[2021-03-17] MEDS: FUROSEMIDE 40 MG TAB PO SCH ×2 (08:58→18:14)
[2021-03-17] MEDS ORDERED: VANCOMYCIN CONSULT ACTIVE PRN (09:17)
--- NOTE | 2021-03-17 09:50 | Pharmacy Report ---
Pharmacy Abx Dose Short Note - Date of Service March 17, 2021 - Assessment & Plan Assessment 65 year old M admitted with dislocation of hip, concern for MRSA bone/joint infection. Patient with hx of discitis/osteo in July of this year. Patient started on vancomycin and zosyn Plan Vancomycin * Will order vancomycin 2250 mg x 1 (~23 mg/kg) * Will start maintenance dose of vancomycin 1250 mg iv q 8 hr * Estimated AUC 400-600, trough goal 15-20 mcg/ml * Plan to check level prior to the 1000 dose on 03/18 Pharmacy will continue to follow and will adjust dose/frequency as necessary. Thank you.
[2021-03-17] MEDS ORDERED: VANCOMYCIN HCL 2,250 MG in SODIUM CHLORIDE 0.9% 500 ML IV ONE (10:00)
[2021-03-17] MEDS ORDERED: MAGNESIUM HYDROXIDE SUSP 30 ML UDC PO ONE (10:52)
--- NOTE | 2021-03-17 11:00 | Orthopedic Consultation ---
Date of Consultation March 17, 2021 Assessment & Plan (1) Osteomyelitis: Discussed with this patient his situation regarding the thoracic spine. I believe he has had some improvement in the infection based on his updated MRI compared to the one in December however he still has significant spinal stenosis and evidence of edema in the cord. This undoubtedly is contributing to some of his leg strength deficits. He also has a concern for possible infection to the left hip. There is excision significant advanced erosive changes and fluid collections. We are awaiting an aspiration. Again I suggest suggest he seek an opinion from a tertiary care center. Any surgery to the thoracic spine is beyond the capabilities of her hospitals I expressed to him in the past. He has multiple medical issues now compounded with left hip suspicion for infection. History of Present Illness Reason for Consultation: Thoracic discitis Attending Physician: Mann Messer MD History of Present Illness This is a 65-year-old male that is known to me and has been hospitalized recently with worsening leg pain particularly left hip. He does have known discitis osteomyelitis affecting predominantly T10-T11 region. I seen him earlier this summer when he was brought to my office from [facility] and suggested that he seek care at a tertiary Center. Appears this did not occur. At this time he is not in any significant pain. He does have weakness affecting his quadriceps and has decreased sensation from the left lower extremity. He states that he often is transferred in a wheelchair. Allergies Allergy/AdvReac Type Severity Reaction Status Date / Time loxapine AdvReac Mild restless Verified 03/14/21 15:49 and nervous morphine AdvReac Mild nausea/vomi Verified 03/14/21 15:49 ting Home Medications Medication Instructions Recorded Confirmed Type venlafaxine 150 mg 150 mg PO QAM 01/13/19 03/14/21 History capsule,extended release 24 hr folic acid 1 mg tablet 1 mg PO QAM 07/21/20 03/14/21 History carbamazepine 200 mg tablet 600 mg PO BID 07/31/20 03/14/21 History (Tegretol) tamsulosin 0.4 mg capsule 0.4 mg PO HS #0 cap 08/23/20 03/14/21 Rx tramadol 50 mg tablet 50 mg PO TID PRN 10/23/20 03/14/21 History Lactobacillus acidophilus-pectin 1 cap PO QAM 03/14/21 03/14/21 History capsule aripiprazole 5 mg tablet (Abilify) 5 mg PO QAM 03/14/21 03/14/21 History ascorbic acid (vitamin C) 500 mg 500 mg PO QAM 03/14/21 03/14/21 History capsule atorvastatin 10 mg tablet 10 mg PO HS 03/14/21 03/14/21 History baclofen 10 mg tablet 20 mg PO QAM 03/14/21 03/14/21 History cholecalciferol (vitamin D3) 125 125 mcg PO QAM 03/14/21 03/14/21 History mcg (5,000 unit) tablet (Vitamin D3) ciprofloxacin HCl 250 mg tablet 250 mg PO BID 03/14/21 03/14/21 History (Cipro) cyanocobalamin (vitamin B-12) 1,000 mcg PO QAM 03/14/21 03/14/21 History 1,000 mcg tablet (Vitamin B-12) ferrous sulfate 325 mg (65 mg 325 mg PO BID 03/14/21 03/14/21 History iron) tablet furosemide 40 mg tablet 40 mg PO BID 03/14/21 03/14/21 History gabapentin 300 mg capsule 300 mg PO TID 03/14/21 03/14/21 History ipratropium 20 mcg-albuterol 100 1 puff INHALATION QID 03/14/21 03/14/21 History mcg/actuation mist for inhalation (Combivent Respimat) lidocaine 4 % topical patch 1 patch TOPICAL DAILY PRN 03/14/21 03/14/21 History metoprolol tartrate 50 mg tablet 50 mg PO BID 03/14/21 03/14/21 History nitrofurantoin 100 mg PO BID 03/14/21 03/14/21 History monohydrate/macrocrystals 100 mg capsule (Macrobid) potassium chloride 20 mEq 20 meq PO QAM 03/14/21 03/14/21 History tablet,extended release(part/cryst) venlafaxine 75 mg capsule,extended 75 mg PO QAM 03/14/21 03/14/21 History release 24 hr zinc 50 mg tablet 50 mg PO QAM 03/14/21 03/14/21 History Patient History Medical History OCTAVIO (acute kidney injury) Anemia Anxiety Depression GERD (gastroesophageal reflux disease) Hyperlipidemia Hypertension Hypothyroidism Morbid obesity due to excess calories MRSA bacteremia Obesity Osteoarthritis of hip Paranoid schizophrenia, chronic condition Seizure disorder last was 2002--on tegretol, follows with Dr. Vee Mcnulty Severe muscle deconditioning Shortness of breath Vitamin D deficiency Surgical History History of appendectomy History of cholecystectomy History of colonoscopy History of umbilical hernia repair History of wisdom tooth extraction Family History Father Family history of diabetes mellitus Mother Family history of diabetes mellitus Brother Family history of diabetes mellitus Other No family history of adverse response to anesthesia Social History Smoking Status: Former smoker Second Hand Exposure: No; Hx Alcohol Use: Yes Alcohol type: other Hx Substance Use: No Preferred Language: Cymro Communication Ability: Effective Biometrics Consultant Required: No Beliefs That Will Affect Care: None marital status: Single Current Living Situation: Intermediate How many Children do You have: 0 Feels Safe at Home: Yes Assistive Devices: Glasses Physical Exam Physical Exam: On exam he is alert and oriented. He has 4-/5 bilateral dorsiflexion plantarflexion dense weakness to the quadricep function. There is 3 beat clonus to bilateral ankles. He has sensation to touch but feels that it is altered and diminished particular on the left lower extremity. Results & Data ([facility]) Vital Signs (Past 12 Hours) Vital Signs Temp Pulse Resp BP Pulse Ox 03/17/21 08:09 71 16 97 03/17/21 07:37 36.8 C 74 20 112/67 96
[2021-03-17] MEDS ORDERED: ALBUTEROL 0.083% NEBU SOLN 3 ML VIAL NEB PRN (14:16)
[2021-03-17] MEDS: VANCOMYCIN HCL 1,250 MG in SODIUM CHLORIDE 0.9% 250 ML IV SCH (18:21)
[2021-03-17] MEDS: TAMSULOSIN HCL 0.4 MG CAP PO SCH (21:04)
[2021-03-17] MEDS: ATORVASTATIN 10 MG TAB PO SCH (21:04)
[2021-03-17] MEDS: ACETAMINOPHEN 325 MG TAB PO PRN (21:43)
[2021-03-18] MEDS: VANCOMYCIN HCL 1,250 MG in SODIUM CHLORIDE 0.9% 250 ML IV SCH ×2 (01:02→15:25)
[2021-03-18] MEDS: PIPERACILLIN/TAZOBACTAM 3.375 GM in DEXTROSE 5% 100 ML IV SCH ×3 (05:14→20:54)
[2021-03-18] MEDS: Albuterol HFA 8 GM Inhaler (Combivent Respimat P&T Subs) INH SCH ×4 (07:17→19:38)
[2021-03-18] MEDS: Ipratropium HFA Inhaler (Combivent Respimat P&T Subs) INH SCH ×4 (07:18→19:38)
[2021-03-18] MEDS: FERROUS SULFATE 325 MG TAB PO SCH ×2 (07:23→16:55)
[2021-03-18] MEDS: VENLAFAXINE HCL XR 150 MG CAPXR PO SCH (09:20)
[2021-03-18] MEDS: CHOLECALCIFEROL 1,000 UNITS 25 MCG TAB PO SCH (09:20)
[2021-03-18] MEDS: BACLOFEN 20 MG TAB PO SCH (09:20)
[2021-03-18] MEDS: ADVANCED PROBIOTIC 1250 MG CAPSULE PO SCH (09:21)
[2021-03-18] MEDS: FOLIC ACID 1 MG TAB PO SCH (09:21)
[2021-03-18] MEDS: CYANOCOBALAMIN 500 MCG TABLET (VITAMIN B-12) PO SCH (09:21)
[2021-03-18] MEDS: METOPROLOL TARTRATE 50 MG TAB PO SCH ×3 (09:22→21:11)
[2021-03-18] MEDS: carBAMazepine 200 MG TABLET PO SCH ×2 (09:22→20:55)
[2021-03-18] MEDS: GABAPENTIN 300 MG CAP PO SCH ×3 (09:22→20:55)
[2021-03-18] MEDS: VENLAFAXINE HCL XR 75 MG CAPXR PO SCH (09:23)
[2021-03-18] MEDS: ASCORBIC ACID 500 MG TAB PO SCH (09:23)
[2021-03-18] MEDS: ZINC SULFATE 220 MG CAPSULE PO SCH (09:23)
[2021-03-18] MEDS: ARIPiprazole 5 MG TAB PO SCH (09:23)
[2021-03-18] MEDS: POTASSIUM CHLORIDE CRTAB 20 MEQ TABCR PO SCH (09:23)
[2021-03-18] MEDS ORDERED: VANCOMYCIN TROUGH ONE (09:30)
[2021-03-18 09:51] LABS: Hematocrit (blood only) 27.5 % (42-52); Hemoglobin 8.8 g/dL (14.0-18.0); Mean Corpuscular Hemoglobin 33.6 pg (25-34); Mean Platelet Volume 8.8 fL (7.4-10.4); Platelet Count 343 K/uL (130-400); RDW Coefficient of Variation 17.1 % (11.5-14.5); RDW Standard Deviation 65.4 fL (36.4-46.3); Red Blood Count 2.62 M/uL (4.7-6.1)
[2021-03-18 10:30] LABS: Albumin Level 2.5 gm/dl (3.4-5.0); BUN Creatinine Ratio 23.1 (10-20); Calcium 8.5 mg/dl (8.5-10.1); Creatinine Clr Calc Pharmacy 121.3 ml/min; Est GFR (Non-African American) 97.5 ml/min; Potassium 2.7 mmol/L (3.5-5.1)
[2021-03-18 10:32] LABS: Albumin Globulin Ratio 0.5 (0.9-2); Bilirubin,Total 0.4 mg/dl (0.2-1); Globulin 4.6 gm/dl (2.5-4.0); Total Protein 7.1 gm/dl (6.4-8.2)
--- NOTE | 2021-03-18 11:04 | Pharmacy Report ---
Pharmacy Abx Dose Short Note - Date of Service March 18, 2021 - Assessment & Plan Assessment 65 year old M receiving vancomycin/zosyn for possible osteomyelitis Day # 2 of antimicrobial therapy. Plan Vancomycin * Trough level collected early and came back at ~22 mcg/ml (goal ~20 mcg/ml for osteo) * Plan to reduce vancomycin dosing to 1250 mg iv q 12 hrs to achieve a slightly lower level <20 mcg/ml * Estimated kinetics: t1/2~11 hrs, estimated AUC 400-600, estimated trough ~18 mcg/ml * Plan to recheck trough in next 1-2 days to reevaluate Pharmacy will continue to follow and will adjust dose/frequency as necessary. Thank you.
--- NOTE | 2021-03-18 11:11 | Fluoroscopy Report ---
FLUOROSCOPIC GUIDED LEFT HIP ASPIRATION CLINICAL HISTORY: Left hip effusion. COMPARISON STUDY: Left hip MRI 03/08/2021. FLUOROSCOPY TIME: 0.1 minute. A single fluoroscopic spot image of the left hip. FINDINGS: Written informed consent was obtained. The left hip was prepped and draped in the usual rich rile fashion. 1% lidocaine was used for local anesthesia. Under intermittent fluoroscopic guidance a 20-gauge x 3/2 in. spinal needle was inserted into the left hip joint. Serosanguineous fluid was aspi rated. This was exchanged for an 18-gauge spinal needle with additional aspiration of serosanguineous fluid. Total aspirated fluid was 86 cc. The needle was removed. The patient tolerated the procedure well. There were no immediate complications. The patient was transported back to the floor in stable condition. IMPRESSION: Fluoroscopic-guided left hip aspiration with removal of 86 cc of serosanguineous fluid. T his was sent to the laboratory at the request of the referring physician. ACT 112: Negative or not required by law. Electronically signed by: Andrade Mcfadden M.D. 03/18/2021 11:10 AM
[2021-03-18] MEDS: FUROSEMIDE 40 MG TAB PO SCH ×2 (11:54→17:07)
[2021-03-18 12:13] LABS: Appearance Synovial Fluid CLOUDY; Color Synovial Fluid AMBER; Mononuclear WBC Synovial 6.2 %; Polynuclear WBC Synovial 93.8 %; RBC Synovial Fluid (A) 27000 /uL; Source Synovial Fluid HIP; WBC Synovial Fluid (A) 24174 /ul (0-200)
[2021-03-18] MEDS: traMADol HCL 50 MG TABLET PO PRN ×3 (12:15→22:32)
--- NOTE | 2021-03-18 14:57 | Discharge Summary ---
Date of Service March 18, 2021 Admission HPI Per Admitting Provider The patient is a 65-year-old male with a past medical history including thoracic abscess, morbid obesity, severe muscle deconditioning, pleural effusion, OCTAVIO, MRSA bacteremia, GI bleeding, acute renal failure, hypertension, hyperlipidemia, depression, anemia, anxiety, hypothyroidism, paranoid schizophrenia, seizure disorder and vitamin D deficiency. He reports that for the past 3 to 4 weeks he has been unable to walk well due to left hip discomfort. He had an x-ray performed today in the outpatient setting which showed a left hip dislocation, and was referred to the ED for assessment. He reports that he has had issues with that hip in the past, and is followed with Dr. Gutierrez from [facility] orthopedics Admission Exam Per Admitting Provider The patient is awake, alert and oriented 3, well developed and well nourished, normocephalic and atraumatic, lying in bed and in no acute distress. HEENT--PERRL, EOMI, mucous membranes and oropharynx normal. Neck--supple. No JVD. No bruits. Thyroid normal, trachea midline, no adenopathy. Heart--normal S1 and S2. No murmurs, rubs or gallops. Lungs--clear bilaterally, no respiratory distress, no accessory muscle use. Abdomen--normal bowel sounds and soft. Nontender. Nondistended. Extremities--no cyanosis or clubbing. No edema. Dermatologic--normal skin turgor, normal color, no abnormal lymph nodes, no rash. Neurologic--cranial nerves II through XII grossly intact. Rheumatologic--limited exam due to left hip dislocation Psychiatric--normal affect. Principal Diagnosis 1. Presumed [place] Septic Arthritis (Left Hip)-- + GPC 2. dislocation of the left hip 3. known discitis/osteomyelitis with thoracic abscess-- completed full course of IV and then oral antibiotic therapy Discharge Data Allergies Allergy/AdvReac Type Severity Reaction Status Date / Time loxapine AdvReac Mild restless Verified 03/14/21 15:49 and nervous morphine AdvReac Mild nausea/vomi Verified 03/14/21 15:49 ting Consultations 03/14/21 20:45 ED Decision to Admit Stat 03/15/21 14:27 Consult Orthopedic Surgery Routine (1) Chronic left hip pain: Patient seen and evaluated by Dr. Gutierrez. He's been seen by Dr. Gutierrez in the past. X-ray and CT scan of left hip shows severely Osteoarthritic, destructedleft hip joint. It appears that the femoral head is subluxed from the acetabulum. Multiple osteophytes and cystic changes noted. Loss of acetabular bone is noted on the CT scan. No evidence of an acute fracture. Patient has been nonambulatory for the last 8 months since July when he His back pain started. 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 He was seen and evaluated by Dr. Gibbs at the time and nonsurgical treatment was recommended. Since then his prickly legs have progressively worsened and weekend. He states he then went to a wheelchair and 2 months ago when his hip "dislocated" he has been on ambulating. He does not have any significant pain today. States it does hurt when it is moved but otherwise at rest he has no pain. This could be a neuropathic joint stemming from his injury to his back. Could also be flaccid paralysis resulting in no support for his left hip joint from his back discitis/osteomyelitis. He had been seen by Dr. Gutierrez in the past and was found to have severe oste oarthritis of his left hip and surgical intervention was recommended for total hip replacement. Patient states this was 8 to 10 years ago. He elected not to have the surgery. At this time surgical intervention is not recommended due to his history of having MRSA bacteremia and acute UTI and discitis/osteomyelitis of his thoracic spine. He is not painful and is nonambulatory at this time due to his back issues so would recommend conservative treatment. He may have a regular diet. He can be rolled from side to side and out of bed to a chair as tolerated. Would not recommend an MRI of his left hip at this time as it would not add anything more to his treatment. Discussed this with medicine and they will cancel the MRI of the left hip. Patient understands and agrees with the plan. No further treatment or recommendations from orthopedic surgery. Could obtain consultation after MRI of his thoracic and lumbar spines by Dr. Gibbs again for further treatment recommendation regarding his back.He also has known osteoarthritis of his left knee which could cause some occasional discomfort as well. Please Call our office with any questions or concerns at [phone]. Thank you for this consultation. 03/16/21 10:20 Consult Infectious Diseases Routine pending 03/16/21 19:28 Consult Orthopedic (spine) Surgery Routine (1) Osteomyelitis: Discussed with this patient his situation regarding the thoracic spine. I believe he has had some improvement in the infection based on his updated MRI compared to the one in December however he still has significant spinal stenosis and evidence of edema in the cord. This undoubtedly is contributing to some of his leg strength deficits. He also has a concern for possible infection to the left hip. There is excision significant advanced erosive changes and fluid collections. We are awaiting an aspiration. Again I suggest suggest he seek an opinion from a tertiary care center. Any surgery to the thoracic spine is beyond the capabilities of her hospitals I expressed to him in the past. He has multiple medical issues now compounded with left hip suspicion for infection. Procedures Performed joint aspiration- see below ESR: 49 (30 in July) CRP: 7.8 (16.6 in July) Ordered Studies 03/14/21: CXR: IMPRESSION: 1. Mild asymmetric pulmonary vascular congestion which has improved. 2. Large hiatus hernia, unchanged. 03/14/21 14:53 CT hip LT wo con Stat IMPRESSION: 1. 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 Numerous corticated ossifications with calcified periarticular debris surrounding the left hip. These likely represent fragmented osteophytes. No acute fracture line identified. 2. Superior posterior dislocation of the femur in relation to the acetabulum. 3. Large left hip joint effusion. 4. Questioned stercoral proctitis. 03/15/21 09:27 MR thoracic spine wo con Urgent IMPRESSION: 1. Overall, interval improvement in the discitis/osteomyelitis at the T8-T9 and T10-11 levels with improvement in the trace epidural fluid collection, paravertebral fluid collections, paravertebral edema, and bilateral loculated pleural effusions. 2. No significant change in the moderate to severe central canal narrowing at the T10-11 level with associated mild cord deformity and cord edema. 03/15/21 09:33 MR lumbar spine wo con Urgent IMPRESSION: 1. Mild edema within the iliopsoas and paraspinal muscles which has improved in the interval. No epidural or paraspinal fluid collections identified. 2. Lumbosacral spondylosis as above. See discussion for detailed level by level analysis. This is similar to the prior examination. 3. Marrow signal intensity is heterogeneous with no destructive bony lesion identified. 4. Degenerative disc disease as above. 03/16/21 10:20 MR hip LT wo/w con Urgent IMPRESSION: 1. Again seen is posterior/superior dislocation of the left femoral head in relationship to the acetabulum. 2. No definite fracture is seen. 3. Severe left hip osteoarthritis with chronic remodeling and flattening of the femoral head. There is associated marrow edema within the left proximal femur and the acetabulum. 4. There is no definite fracture. No clear cortical destruction/bony erosion is identified. 5. Large complex joint effusion with numerous bony fragments and fluid in the iliopsoas bursa. The sterility of this fluid cannot be evaluated by MRI. 6. Soft tissue edema overlies the left hip, with significant intramuscular edema involving the left iliopsoas, adductor, and gluteal muscles. 7. Additional findings as above. 03/18/21 07:00 FL inj majr joint sh,hip,kn LT Routine IMPRESSION: Fluoroscopic-guided left hip aspiration with removal of 86 cc of serosanguineous fluid. This was sent to the laboratory at the request of the referring physician Hospital Course (1) Dislocation of left hip: Dislocation of left hip- By patient's history, has been out for 3-4 weeks Per patient history also has been a recurrent issue and known to Dr Gutierrez in the past CT LEFT HIP * 1. 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 Numerous corticated ossifications with calcified p eriarticular debris surrounding the left hip. These likely represent fragmented osteophytes. No acute fracture line identified. * 2. Superior posterior dislocation of the femur in relation to the acetabulum. * 3. Large left hip joint effusion. Ortho consult not place, but Dr. Gutierrez apparently made aware by admitting team --> official consult placed. No intervention planned due to muscle atrop hy/poor bone support to allow for successful reduction in chronic issue. Repeat thoracic/lumbar spine MRI with improvement but still w edema/chronic findings likely contributing to LE symptoms Rec'd ortho spine consult -- already discussed. Obtaining L hip MRI, CRP, ESR. (see results as outlined above) ESR, CRP elevated, concerning for infection to L hip Zosyn/Vanco empirically for now (Vanco added hx MRSA bacteremia), which should also cover for possible stercoral proctocolitis. BCx NGTD Wound RN consulted for sacral wound (worse than d/c in July but no obvious infection noted) MRI L Hip * 1. Again seen is posterior/superior dislocation of the left femoral head in relationship to the acetabulum. * 2. No definite fracture is seen. * 3. Severe left hip osteoarthritis with chronic remodeling and flattening of the femoral head. There is associated marrow edema within the left proximal femur and the acetabulum. * 4. There is no definite fracture. No clear cortical destruction/bony erosion is identified. * 5. Large complex joint effusion with numerous bony fragments and fluid in the iliopsoas bursa. The sterility of this fluid cannot be evaluated by MRI. * 6. Soft tissue edema overlies the left hip, with significant intramuscular edema involving the left iliopsoas, adductor, and gluteal muscles. ESR elevated 75--> 49 CRP 6.7 --> 7.8 (was 04 August) CT guided aspiration done by interventional radiology. Final analysis pending; however, noted to have 24,000+ WBC and prelim growth of GPC suspect translocation from remote h/o MRSA bacteremia at this time, how much of the femoral head destruction is from severe OA vs [place] septic arthritis. PAtient requesting transfer to [place] (he is established there) for second opinion. SPoke with Ortho and given the preliminary growth of GPC there is huge concern for infection and at the very least, needs an I&D of the left hip. Pt accepted to [facility] ([place]) under the care ff Dr. Dontrell Hoyt. Continue empiric tx (zosyn and vanco) and transfer when bed available. Patient currently hemodynamically stable. Brother called and updated (Angel) (2) Osteomyelitis: Seen by Dr. Gibbs for hx discitis/osteomyelitis in July with concurrent thoracic abscess empyema/MRSA bacteremia Repeat imaging this summer appears to have worsened; however, current MRI shows minimal improvement --> Reported worsening back pain as well repeat BS showing NGTD If +, ECHO, however no murmur on examination and prior echo without vegetation noted Repeat MRI with some improvement but still w cord edema resulting in likely permanent paraplegia MRI of L hip rec'd as above, ESR, CRP Possible infection in hip -- MRI as above (3) HTN (hypertension): Continue metoprolol tartrate 50 mg B p.o. twice daily with hold parameters BP stable (4) HLD (hyperlipidemia): Continue atorvastatin 10 mg daily (5) Depression: Depression/anxiety/paranoid schizophrenia/seizure disorder- Continue Abilify, carbamazepine, gabapentin, and venlafaxine (6) Anxiety: See above (7) Paranoid schizophrenia, chronic condition: See above (8) Seizure disorder: See above (9) Thoracic abscess: hx of completed full course of abx therapy followed by oral FU MRI showing minimal improvement ? need for I&D would recommend FU regarding this (10) MRSA bacteremia: hx of Jul 2020 -- hospitalized for almost a month MRSA nasal positive but no respiratory symptoms BCx remain NGTD -- monitor (11) Weakness: transfer to [facility]). Patient currently hemodynamically stable Plan of care discussed with Dr. Bowman Lengthy discussion with attending from [facility] (Dr. Hoyt) along with orthopedic surgeon. Both are agreeable to accept patient in transfer when bed becomes a vailable Total Time Total Time Spent Total Time Spent (In Minutes): 90 min including time spent with patient, calling brother and arranging transfer. Discharge Plan Discharge Items Patient Disposition: Transfer Acute Care Hospital Reason For Visit: LEFT HIP DISLOCATION Discharge Diagnosis: 1. Presumed Septic Arthritis ([place] Left Hip) 2. Left hip dislocation 3. known Thoracic abscess 4. h/o MRSA bacteremia (July 2020) Activity: As commented below Activity Comment: currently, NWB to left hip Non-emergency contact: Primary Care Provider Call non-emergency contact if: you have any medication questions Follow-up/Referrals: Lauri Rivas [Primary Care Provider] - Diet: Regular Addtl Attending Provider Instructions: transfer to [facility] for dislocated left hip with concern for left hip [place] septic arthritis in the setting of known (remote) h/o MRSA bactermia. Seen by ortho here who are recommend transfer to tertiary center Pending Studies at Discharge: Yes Studies:: joint aspirate analysis Stand-Alone Forms: My [facility] Skilled Items Patient informed of condition?: Yes DNR: No Discharge Level of Care: Other Communicable Disease: Yes Discharge Prognosis: Stable Lines: Peripheral IV Urinary Catheter: No Medications and DC Order Prescriptions: New acetaminophen 325 mg Tablet 650 mg PO Q4H PRN (Reason: fever or pain) Qty: 30 RF: 0 vancomycin 1.25 gram recon soln 1.25 g IV Q12H Qty: 10 RF: 0 Zosyn in dextrose (iso-osm) 3.375 gram/50 mL piggyback 3.375 g IV Q8H Qty: 1200 RF: 0 Continued venlafaxine 150 mg Capsule,Extended Release 24hr 150 mg PO QAM RF: 0 folic acid 1 mg tablet 1 mg PO QAM RF: 0 carbamazepine [Tegretol] 200 mg tablet 600 mg PO BID RF: 0 tamsulosin 0.4 mg Capsule 0.4 mg PO HS Qty: 0 RF: 0 furosemide 40 mg tablet 40 mg PO BID RF: 0 venlafaxine 75 mg capsule,extended release 24hr 75 mg PO QAM RF: 0 lidocaine 4 % Adhesive Patch,Medicated 1 patch TOPICAL DAILY PRN (Reason: Mid back pain) RF: 0 atorvastatin 10 mg tablet 10 mg PO HS RF: 0 cyanocobalamin (vitamin B-12) [Vitamin B-12] 1,000 mcg Tablet 1,000 mcg PO QAM RF: 0 potassium chloride 20 mEq tablet,ER particles/crystals 20 meq PO QAM RF: 0 baclofen 10 mg Tablet 20 mg PO QAM RF: 0 Lactobacillus acidoph-pectin Capsule 1 cap PO QAM RF: 0 ferrous sulfate 325 mg (65 mg iron) Tablet 325 mg PO BID RF: 0 metoprolol tartrate 50 mg tablet 50 mg PO BID RF: 0 gabapentin 300 mg capsule 300 mg PO TID RF: 0 zinc 50 mg Tablet 50 mg PO QAM RF: 0 aripiprazole [Abilify] 5 mg Tablet 5 mg PO QAM RF: 0 cholecalciferol (vitamin D3) [Vitamin D3] 125 mcg (5,000 unit) Tablet 125 mcg PO QAM RF: 0 Combivent Respimat 20-100 mcg/actuation Mist 1 puff INHALATION QID RF: 0 ascorbic acid (vitamin C) 500 mg Capsule 500 mg PO QAM RF: 0 tramadol 50 mg tablet 50 mg PO TID PRN (Reason: Pain) RF: 0 Discontinued ciprofloxacin HCl [Cipro] 250 mg Tablet 250 mg PO BID RF: 0 nitrofurantoin monohyd/m-cryst [Macrobid] 100 mg Capsule 100 mg PO BID RF: 0 Discharge Orders: Discharge Order (Routine); Ordered 03/18/21 Ordered By: Dorita José Admission Data Admit Date/Time: 03/14/21 21:14 Attending Provider: Jonn Bowman Admit Provider: Andriy Otoole Primary Care Provider: Lauri Rivas Other Providers: Andriy Otoole ; Holden Gutierrez ; Ari Morales ; Raina Quinonez ; Rajinder Salinas I. ; Stephen Oneal II ; Grace Fitzpatrick ; Peterson Magdaleno ; Jarrett Gibbs Coding Level of Care Code Established Pt D/C DAY MANAGEMENT >30 MINS Patient Type Established Diagnoses Dislocation of left hip S73.005A Osteomyelitis M86.9 HTN (hypertension) I10 HLD (hyperlipidemia) E78.5 Depression F32.9 Anxiety F41.9 Paranoid schizophrenia, chronic condition F20.0 Seizure disorder G40.909 Thoracic abscess J86.9 MRSA bacteremia R78.81; B95.62 Weakness R53.1 Time Spent (min) 90
[2021-03-18] MEDS ORDERED: DOCUSATE SODIUM 100 MG CAP PO ONE (20:30)
[2021-03-18] MEDS: ATORVASTATIN 10 MG TAB PO SCH (20:55)
[2021-03-18] MEDS: TAMSULOSIN HCL 0.4 MG CAP PO SCH (20:55)
[2021-03-19] MEDS: VANCOMYCIN HCL 1,250 MG in SODIUM CHLORIDE 0.9% 250 ML IV SCH ×2 (05:06→15:54)
[2021-03-19] MEDS: PIPERACILLIN/TAZOBACTAM 3.375 GM in DEXTROSE 5% 100 ML IV SCH (05:07)
[2021-03-19] MEDS: traMADol HCL 50 MG TABLET PO PRN (06:14)
[2021-03-19] MEDS: Albuterol HFA 8 GM Inhaler (Combivent Respimat P&T Subs) INH SCH ×4 (07:22→19:07)
[2021-03-19] MEDS: Ipratropium HFA Inhaler (Combivent Respimat P&T Subs) INH SCH ×4 (07:23→19:07)
[2021-03-19 07:31] LABS: Creatinine Clr Calc Pharmacy 154.8 ml/min; Est GFR (African American) 124.9 ml/min; Est GFR (Non-African American) 107.7 ml/min
[2021-03-19 07:38] LABS: Cdiff Antigen Positive; Cdiff Toxin A+B Negative Cdiff Toxin (Negative)
[2021-03-19 07:50] LABS: Eosinophils # (auto) 0.32 K/uL (0-0.5); Eosinophils % (auto) 4.7 %; Hematocrit (blood only) 26.3 % (42-52); Hemoglobin 8.4 g/dL (14.0-18.0); Immature Granulocytes # (auto) 0.02 K/uL (0.00-0.02); Immature Granulocytes % (auto) 0.3 %; Lymphocytes # (auto) 0.51 K/uL (1.2-3.4); Lymphocytes % (auto) 7.4 %; Mean Corpuscular Hemoglobin 33.5 pg (25-34); Mean Corpuscular Volume 104.8 fL (80-100); Mean Platelet Volume 9.5 fL (7.4-10.4); Monocytes # (auto) 0.49 K/uL (0.11-0.59); Monocytes % (auto) 7.1 %; Neutrophils # (auto) 5.54 K/uL (1.4-6.5); Neutrophils % (auto) 80.5 %; Platelet Count 350 K/uL (130-400); RDW Coefficient of Variation 16.9 % (11.5-14.5); RDW Standard Deviation 64.9 fL (36.4-46.3); Red Blood Count 2.51 M/uL (4.7-6.1); White Blood Count 6.88 K/uL (4.8-10.8)
[2021-03-19 07:55] LABS: Mean Corpuscular Hgb Conc 31.9 g/dL (32-36)
[2021-03-19 07:56] LABS: Calcium 8.5 mg/dl (8.5-10.1); Est GFR (African American) 117.7 ml/min; Est GFR (Non-African American) 101.5 ml/min; Magnesium 1.9 mg/dl (1.8-2.4)
[2021-03-19] MEDS ORDERED: MEROPENEM CONSULT ACITVE PRN (08:26)
[2021-03-19] MEDS: ACETAMINOPHEN 325 MG TAB PO PRN ×2 (09:25→14:06)
[2021-03-19] MEDS: POTASSIUM CHLORIDE CRTAB 20 MEQ TABCR PO SCH ×3 (09:26→22:28)
[2021-03-19] MEDS: ADVANCED PROBIOTIC 1250 MG CAPSULE PO SCH (09:26)
[2021-03-19] MEDS: ZINC SULFATE 220 MG CAPSULE PO SCH (09:27)
[2021-03-19] MEDS: GABAPENTIN 300 MG CAP PO SCH ×3 (09:27→21:02)
[2021-03-19] MEDS: VENLAFAXINE HCL XR 150 MG CAPXR PO SCH (09:27)
[2021-03-19] MEDS: METOPROLOL TARTRATE 50 MG TAB PO SCH ×2 (09:27→21:02)
[2021-03-19] MEDS: ARIPiprazole 5 MG TAB PO SCH (09:27)
[2021-03-19] MEDS: FUROSEMIDE 40 MG TAB PO SCH ×2 (09:27→17:36)
[2021-03-19] MEDS: FERROUS SULFATE 325 MG TAB PO SCH ×2 (09:27→17:36)
[2021-03-19] MEDS: VENLAFAXINE HCL XR 75 MG CAPXR PO SCH (09:27)
[2021-03-19] MEDS: ASCORBIC ACID 500 MG TAB PO SCH (09:27)
[2021-03-19] MEDS: CYANOCOBALAMIN 500 MCG TABLET (VITAMIN B-12) PO SCH (09:27)
[2021-03-19] MEDS: FOLIC ACID 1 MG TAB PO SCH (09:27)
[2021-03-19] MEDS: carBAMazepine 200 MG TABLET PO SCH ×2 (09:28→21:02)
[2021-03-19] MEDS: BACLOFEN 20 MG TAB PO SCH (09:28)
[2021-03-19] MEDS: CHOLECALCIFEROL 1,000 UNITS 25 MCG TAB PO SCH (09:28)
[2021-03-19] MEDS: MEROPENEM 500 MG in SYRINGE 0 ML IV SCH ×3 (09:54→22:30)
--- NOTE | 2021-03-19 16:37 | Hospitalist Progress Note ---
Date of Service March 19, 2021 Assessment & Plan (1) Septic arthritis: Plan: -Likely translocation of bacteria from remote history of MRSA bacteremia from thoracic abscess -Blood culture showed no growth to date -Preliminary joint aspirate showing staph aureus (likely MRSA based on history) -Suspect infection likely cause of dislocation and deteriorated femoral head -Given his complexity, orthopedics feel that patient should be at a tertiary clinic for intervention. At the very least, he requires an I&D but likely replacement of the hip. Without this, his overall prognosis is poor as he would remain bedbound. In addition, this would substantially increase his risk of DVT/PE -Continue empiric antibiotic therapy awaiting final culture data (vancomycin with now the addition of Merrembased on urine culture). -Awaiting bed availability at [facility]). (2) UTI (urinary tract infection): Plan: -Culture data showing E. coli and Pseudomonas. A follow-up culture done yesterday showing no growth to date; however, may be skewed due to ongoing antibiotic therapy. Given complexity of his active infection, I believe it best to broaden his coverage and transition Zosyn to Merrem for adequate ESBL and antipseudomonal coverage. Joint aspirate culture preliminarily is showing only gram-positive cocci; however, cannot rule out gram-negative (as takes longer to grow) and culture not final. May de-escalate based on final culture data. For now, I believe broad-spectrum is best. (3) Dislocation of left hip: Plan: Dislocation of left hip- By patient's history, has been out for 3-4 weeks Per patient history also has been a recurrent issue and known to Dr Welch in the past CT LEFT HIP * 1. 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 Numerous corticated ossifications with calcified periarticular debris surrounding the left hip. These likely represent fragmented osteophytes. No acute fracture line identified. * 2. Superior posterior dislocation of the femur in relation to the acetabulum. * 3. Large left hip joint effusion. Ortho consult not place, but Dr. Welch apparently made aware by admitting team --> official consult placed. No intervention planned due to muscle atrophy/poor bone support to allow for successful reduction in chronic issue. Repeat thoracic/lumbar spine MRI with improvement but still w edema/chronic findings likely contributing to LE symptoms Rec'd ortho spine consult -- already discussed. Obtaining L hip MRI, CRP, ESR. (see results as outlined above) ESR, CRP elevated, concerning for infection to L hip Zosyn/Vanco empirically for now (Vanco added hx MRSA bacteremia), which should also cover for possible stercoral proctocolitis. BCx NGTD Wound RN consulted for sacral wound (worse than d/c in July but no obvious infection noted) MRI L Hip * 1. Again seen is posterior/superior dislocation of the left femoral head in relationship to the acetabulum. * 2. No definite fracture is seen. * 3. Severe left hip osteoarthritis with chronic remodeling and flattening of the femoral head. There is associated marrow edema within the left proximal femur and the acetabulum. * 4. There is no definite fracture. No clear cortical destruction/bony erosion is identified. * 5. Large complex joint effusion with numerous bony fragments and fluid in the iliopsoas bursa. The sterility of this fluid cannot be evaluated by MRI. * 6. Soft tissue edema overlies the left hip, with significant intramuscular edema involving the left iliopsoas, adductor, and gluteal muscles. ESR elevated 75--> 49 CRP 6.7 --> 7.8 (was 04 August) CT guided aspiration done by interventional radiology. Final analysis pending; however, noted to have 24,000+ WBC and prelim growth of staph aureus (suspect MRSA with given hx) suspect translocation from remote h/o MRSA bacteremia at this time, how much of the femoral head destruction is from severe OA vs [place] septic arthritis. PAtient requesting transfer to [place] (he is established there) for second opinion. SPoke with Ortho and given the preliminary growth of GPC there is huge concern for infection and at the very least, needs an I&D of the left hip. Pt accepted to [facility] ([place]) under the care ff Dr. Dontrell Hoyt. Continue empiric tx (merrem and vanco) and transfer when bed available. Patient currently hemodynamically stable. Brother called and updated (Angel) (4) Osteomyelitis: Plan: Seen by Dr. Gibbs for hx discitis/osteomyelitis in July with concurrent thoracic abscess empyema/MRSA bacteremia Repeat imaging this summer appears to have worsened; however, current MRI shows minimal improvement --> Reported worsening back pain as well repeat BS showing NGTD If +, ECHO, however no murmur on examination and prior echo without vegetation noted Repeat MRI with some improvement but still w cord edema resulting in likely permanent paraplegia MRI of L hip rec'd as above, ESR, CRP Possible infection in hip -- MRI outlined (5) HTN (hypertension): Plan: Continue metoprolol tartrate 50 mg B p.o. twice daily with hold parameters BP stable (6) HLD (hyperlipidemia): Plan: Continue atorvastatin 10 mg daily (7) Depression: Plan: Depression/anxiety/paranoid schizophrenia/seizure disorder- Continue Abilify, carbamazepine, gabapentin, and venlafaxine (8) Anxiety: Plan: See above (9) Paranoid schizophrenia, chronic condition: Plan: See above (10) Seizure disorder: Plan: See above (11) Thoracic abscess: Plan: hx of completed full course of abx therapy followed by oral FU MRI showing minimal improvement ? need for I&D would recommend FU/opinion from commercial loan specialist regarding this (12) MRSA bacteremia: Plan: hx of Jul 2020 -- hospitalized for almost a month MRSA nasal positive but no respiratory symptoms BCx remain NGTD -- monitor (13) Weakness: Plan: transfer to [facility]). Patient currently hemodynamically stable Plan of care discussed with Dr. Bowman Lengthy discussion with attending from [facility] (Dr. Hoyt) along with orthopedic surgeon. Both are agreeable to accept patient in transfer when bed becomes available Admission and Anticipated Discharge Date Admission Date: March 14, 2021 Subjective Patient seen on daily rounds today. Arrangements made for transfer to [facility] on 03/18 given left hip dislocation with concern for [place] septic arthritis in the setting of remote MRSA bacteremia likely due to thoracic abscess. Culture data from left hip showing preliminary growth of staph aureus. Currently on Zosyn/vancomycin. Urine culture obtained upon admission and culture data has since come back showing ESBL E. coli along with Pseudomonas. Otherwise, patient denies any complaints or concerns. Denies fevers, chills, chest pain, shortness of breath, abdominal pain, nausea or vomiting. Currently denies pain in the left hip. Review of Systems Review of Systems: All systems reviewed and are unremarkable except as noted in HPI and below Denies fevers, chills, headache, nasal congestion, sore throat, cough, chest pain, shortness of breath, abdominal pain, nausea, vomiting, dysuria, hematuria, frequency, skin lesions or rashes. Physical Exam Physical Exam: General: Resting comfortably in his hospital bed. NAD. Neck: No JVD. Negative hepatojugular reflex Cardiac: RRR with 2/6 NICKI Lungs: CTA without W/R/R Abdomen: Normoactive X4. Soft and nontender in all quadrants. Extremities: left hip with obvious deformity (can feel the joint socket) Neuro: A&O X4 cranial nerves II through XII are grossly intact no focal neuro deficits Skin: No obvious skin lesions or rashes Results & Data Results & Data ([facility]) Vital Signs (Past 12 Hours) Vital Signs Temp Pulse Resp BP Pulse Ox 03/19/21 15:50 36.7 C 71 18 113/73 95 03/19/21 15:14 81 16 96 03/19/21 11:19 77 18 97 03/19/21 07:23 86 18 94 03/19/21 07:19 36.4 C L 85 18 134/76 94 Laboratory Results 03/19/21 06:20 03/19/21 06:20 Urine culture: ESBL E col P aerugino RX M.I.C. RX M.I.C. --- --------- --- --------- Amox/Clav I 16/8 Ampicillin R >16 Amp/Sul R >16/8 Cefazolin R >16 Cefepime R >16 S <=2 Cefotaxime R >16 Ceftazidime S 4 Ceftriaxone R >2 Ciprofloxacin R >2 S <=0.25 Ertapenem S <=0.5 Gentamicin S <=4 S <=4 Levofloxacin R >4 S <=0.5 Meropenem S <=1 S <=1 Nitrofurantoin S <=32 Tobramycin S <=4 S <=4 Trimeth/Sulfa S <=2/38 Pip/Tazo S <=16 S <=16 Joint aspirate: Gram Stain Final 03/18/21-1313 Gram Stain Result Many WBCs Seen Rare Gram Positive Cocci Aero/Bernarda Cult Preliminary 03/19/21-904 Organism 1 Staphylococcus species Quantity Few Sens Sensitivities to Follow Blood Culture Aerobic Preliminary 03/17/21-1704 No growth in Aerobic bottle after 48 hours. Blood Culture Anaerobic Preliminary 03/17/21-1705 No growth in Anaerobic bottle after 48 hours. PG Care Time/CCT Total # of Minutes Spent Total Time Spent with Patient: Total time spent is greater than 50% in coordination of care (as documented) at patient's floor/unit and/or counseling patient: [place] [address] Subseq Hosp Care Lvl 3 Patient Type Established History Detailed Exam Detailed Medical Decision Making Moderate Complexity Diagnoses Dislocation of left hip S73.005A Osteomyelitis M86.9 HTN (hypertension) I10 HLD (hyperlipidemia) E78.5 Depression F32.9 Anxiety F41.9 Paranoid schizophrenia, chronic condition F20.0 Seizure disorder G40.909 Thoracic abscess J86.9 MRSA bacteremia R78.81; B95.62 Weakness R53.1 Septic arthritis M00.9 UTI (urinary tract infection) N39.0
[2021-03-19] MEDS: ENOXAPARIN INJ 40 MG/0.4 ML SYR SQ SCH (18:41)
[2021-03-19] MEDS: TAMSULOSIN HCL 0.4 MG CAP PO SCH (21:02)
[2021-03-19] MEDS: ATORVASTATIN 10 MG TAB PO SCH (21:02)
[2021-03-20] MEDS ORDERED: VANCOMYCIN TROUGH ONE (03:30)
[2021-03-20 03:59] LABS: Creatinine Clr Calc Pharmacy 147.2 ml/min; Est GFR (African American) 122.3 ml/min; Est GFR (Non-African American) 105.5 ml/min
[2021-03-20] MEDS: MEROPENEM 500 MG in SYRINGE 0 ML IV SCH ×2 (04:48→09:34)
[2021-03-20] MEDS: VANCOMYCIN HCL 1,250 MG in SODIUM CHLORIDE 0.9% 250 ML IV SCH (04:48)
[2021-03-20] MEDS: POTASSIUM CHLORIDE CRTAB 20 MEQ TABCR PO SCH ×2 (04:56→09:18)
[2021-03-20] MEDS: Ipratropium HFA Inhaler (Combivent Respimat P&T Subs) INH SCH ×3 (07:04→15:13)
[2021-03-20] MEDS: Albuterol HFA 8 GM Inhaler (Combivent Respimat P&T Subs) INH SCH ×3 (07:04→15:12)
[2021-03-20 08:32] LABS: Basophils # (auto) 0.01 K/uL (0-0.2); Basophils % (auto) 0.2 %; Eosinophils # (auto) 0.26 K/uL (0-0.5); Eosinophils % (auto) 4.2 %; Hematocrit (blood only) 24.5 % (42-52); Hemoglobin 7.6 g/dL (14.0-18.0); Immature Granulocytes # (auto) 0.01 K/uL (0.00-0.02); Immature Granulocytes % (auto) 0.2 %; Lymphocytes # (auto) 0.54 K/uL (1.2-3.4); Lymphocytes % (auto) 8.7 %; Mean Corpuscular Hemoglobin 32.5 pg (25-34); Mean Corpuscular Volume 104.7 fL (80-100); Mean Platelet Volume 9.3 fL (7.4-10.4); Monocytes % (auto) 6.5 %; Neutrophils # (auto) 4.96 K/uL (1.4-6.5); Neutrophils % (auto) 80.2 %; Platelet Count 348 K/uL (130-400); Red Blood Count 2.34 M/uL (4.7-6.1); White Blood Count 6.18 K/uL (4.8-10.8)
[2021-03-20 08:54] LABS: BUN Creatinine Ratio 28.5 (10-20); Calcium 8.4 mg/dl (8.5-10.1); Creatinine Clr Calc Pharmacy 157.5 ml/min; Est GFR (African American) 125.8 ml/min; Est GFR (Non-African American) 108.5 ml/min; Magnesium 2.2 mg/dl (1.8-2.4); Potassium 3.4 mmol/L (3.5-5.1)
[2021-03-20 09:08] LABS: RBC Morphology Unremarkable
[2021-03-20] MEDS: FERROUS SULFATE 325 MG TAB PO SCH (09:17)
[2021-03-20] MEDS: METOPROLOL TARTRATE 50 MG TAB PO SCH (09:18)
[2021-03-20] MEDS: ADVANCED PROBIOTIC 1250 MG CAPSULE PO SCH (09:18)
[2021-03-20] MEDS: VENLAFAXINE HCL XR 150 MG CAPXR PO SCH (09:18)
[2021-03-20] MEDS: GABAPENTIN 300 MG CAP PO SCH ×2 (09:19→14:09)
[2021-03-20] MEDS: FOLIC ACID 1 MG TAB PO SCH (09:19)
[2021-03-20] MEDS: FUROSEMIDE 40 MG TAB PO SCH (09:19)
[2021-03-20] MEDS: CYANOCOBALAMIN 500 MCG TABLET (VITAMIN B-12) PO SCH (09:20)
[2021-03-20] MEDS: CHOLECALCIFEROL 1,000 UNITS 25 MCG TAB PO SCH (09:20)
[2021-03-20] MEDS: ARIPiprazole 5 MG TAB PO SCH (09:21)
[2021-03-20] MEDS: BACLOFEN 20 MG TAB PO SCH (09:21)
[2021-03-20] MEDS: carBAMazepine 200 MG TABLET PO SCH (09:21)
[2021-03-20] MEDS: ASCORBIC ACID 500 MG TAB PO SCH (09:21)
[2021-03-20] MEDS: ZINC SULFATE 220 MG CAPSULE PO SCH (09:22)
[2021-03-20] MEDS: VENLAFAXINE HCL XR 75 MG CAPXR PO SCH (09:22)
[2021-03-20] MEDS: ENOXAPARIN INJ 40 MG/0.4 ML SYR SQ SCH (10:33)
--- NOTE | 2021-03-20 11:16 | Pharmacy Report ---
Pharmacy Vanc AUC Short Note - Date of Service March 20, 2021 - Assessment & Plan Assessment 65 year old M receiving vancomycin and meropenem for treatment of thoracic discitis osteomyelitis with possible extension of infection into left hip. Today is day 4 of antibiotics. * On zosyn 03/17-03/18, then changed to meropenem due to recent h/o ESBL E.coli and Pseudomonas growing in urine culture. * Pertinent microbiologic data includes: joint aspirate growing MRSA -> of note, vancomycin MILLY is reported as equal to 2. [facility] MILLY using the turbidity testing method. * Plan to transfer to [place] for intervention Plan Vancomycin * Patient is currently on vancomycin 1250 mg IV q12h. * Trough level of 20.7 mcg/mL today @ 0331 is predicted to achieve target AUC/MILLY of 400-600. Will continue current dose for now. * Anticipate trough level to be 18-19 mcg/mL once this dose is at steady state * More aggressive dosing will be utilized based on source of infection and potential for true vanc MILLY = 2 mcg/mL * AUC/MILLY is the preferred PK/PD target for vancomycin * AUC guided dosing is effective and associated with decreased risk of nephrotoxicity compared to traditional trough targets * Will monitor renal function closely and repeat level in the next 24-48h if patient remains at [place] [facility] will continue to follow and will adjust dose/frequency as necessary. Thank you.
--- NOTE | 2021-03-20 13:40 | Hospitalist Progress Note ---
Date of Service March 20, 2021 Assessment & Plan (1) Septic arthritis: Plan: -Likely translocation of bacteria from remote history of MRSA bacteremia from thoracic abscess -Blood culture showed no growth to date -joint aspirate showing MRSA -Patient on Vancomycin with therapeutic trough (20.7) -Suspect infection likely cause of dislocation and deteriorated femoral head -Given his complexity, orthopedics feel that patient should be at a tertiary clinic for intervention. At the very least, he requires an I&D but likely replacement of the hip (suspect wound be done following treatment of his septic arthritis as may not be gongora to place indwelling hardware with active infection). Unfortionately, his overall longerterm prognosis is poor: currently bedbound. In addition, this would substantially increase his risk of DVT/PE -Trasfer to [place] ([place]). (2) UTI (urinary tract infection): Plan: -Culture data showing E. coli and Pseudomonas. A follow-up culture done yesterday showing no growth to date; however, may be skewed due to ongoing antibiotic therapy. Given complexity of his active infection, -continue merrem (would be inclined to completed a full 7 days of this. Today sfoia day #2 with completion of 03/25 (3) Anemia: Plan: -not far from baseline (7-9 - 8.8)-- currently 7.6 today and asymptomatic and hemodynamically stable -no blood transfusion at this time -Patient is on lovenox for DVT prophylaxis. May consider d/c of this if evidence of blood in stool (none to date and difficult to roll to side with active hip dislocation) -would monitor as not an acute issue (4) Dislocation of left hip: Plan: Dislocation of left hip- By patient's history, has been out for 3-4 weeks Per patient history also has been a recurrent issue and known to Dr Welch in the past CT LEFT HIP * 1. 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 Numerous corticated ossifications with calcified periarticular debris surrounding the left hip. These likely represent fragmented osteophytes. No acute fracture line identified. * 2. Superior posterior dislocation of the femur in relation to the acetabulum. * 3. Large left hip joint effusion. Ortho consult not place, but Dr. Welch apparently made aware by admitting team --> official consult placed. No intervention planned due to muscle atrophy/poor bone support to allow for successful reduction in chronic issue. Repeat thoracic/lumbar spine MRI with improvement but still w edema/chronic findings likely contributing to LE symptoms Rec'd ortho spine consult -- already discussed. Obtaining L hip MRI, CRP, ESR. (see results as outlined above) ESR, CRP elevated, concerning for infection to L hip Zosyn/Vanco empirically for now (Vanco added hx MRSA bacteremia), which should also cover for possible stercoral proctocolitis. BCx NGTD Wound RN consulted for sacral wound (worse than d/c in July but no obvious infection noted) MRI L Hip * 1. Again seen is posterior/superior dislocation of the left femoral head in relationship to the acetabulum. * 2. No definite fracture is seen. * 3. Severe left hip osteoarthritis with chronic remodeling and flattening of the femoral head. There is associated marrow edema within the left proximal femur and the acetabulum. * 4. There is no definite fracture. No clear cortical destruction/bony erosion is identified. * 5. Large complex joint effusion with numerous bony fragments and fluid in the iliopsoas bursa. The sterility of this fluid cannot be evaluated by MRI. * 6. Soft tissue edema overlies the left hip, with significant intramuscular edema involving the left iliopsoas, adductor, and gluteal muscles. ESR elevated 75--> 49 CRP 6.7 --> 7.8 (was 04 August) CT guided aspiration done by interventional radiology. Final analysis pending; however, noted to have 24,000+ WBC and prelim growth of staph aureus (suspect MRSA with given hx) suspect translocation from remote h/o MRSA bacteremia at this time, how much of the femoral head destruction is from severe OA vs [place] septic arthritis. PAtient requesting transfer to [place] (he is established there) for second opinion. SPoke with Ortho and given the preliminary growth of GPC there is huge concern for infection and at the very least, needs an I&D of the left hip. Pt accepted to [facility] ([place]) under the care ff Dr. Dontrell Hoyt. Continue empiric tx (merrem and vanco) and transfer when bed available. Patient currently hemodynamically stable. Brother called and updated (Angel) (5) Osteomyelitis: Plan: Seen by Dr. Gibbs for hx discitis/osteomyelitis in July with concurrent thoracic abscess empyema/MRSA bacteremia Repeat imaging this summer appears to have worsened; however, current MRI shows minimal improvement --> Reported worsening back pain as well repeat BS showing NGTD If +, ECHO, however no murmur on examination and prior echo without vegetation noted Repeat MRI with some improvement but still w cord edema resulting in likely permanent paraplegia MRI of L hip rec'd as above, ESR, CRP Possible infection in hip -- MRI outlined (6) HTN (hypertension): Plan: Continue metoprolol tartrate 50 mg B p.o. twice daily with hold parameters BP stable (7) HLD (hyperlipidemia): Plan: Continue atorvastatin 10 mg daily (8) Depression: Plan: Depression/anxiety/paranoid schizophrenia/seizure disorder- Continue Abilify, carbamazepine, gabapentin, and venlafaxine (9) Anxiety: Plan: See above (10) Paranoid schizophrenia, chronic condition: Plan: See above (11) Seizure disorder: Plan: See above (12) Thoracic abscess: Plan: hx of completed full course of abx therapy followed by oral FU MRI showing minimal improvement ? need for I&D would recommend FU/opinion from health and safety specialist regarding this (13) MRSA bacteremia: Plan: hx of Jul 2020 -- hospitalized for almost a month MRSA nasal positive but no respiratory symptoms BCx remain NGTD -- monitor (14) Weakness: Plan: transfer to [facility] ([place]). Patient currently hemodynamically stable Plan of care discussed with Dr. Bowman om 03/19/21: Lengthy discussion with attending from [facility] (Dr. Hoyt) along with orthopedic surgeon. Both are agreeable to accept patient in transfer Admission and Anticipated Discharge Date Admission Date: March 14, 2021 Subjective Patient seen on daily rounds today. Still in our facility awaiting a bed. It was not anticipated that it would take so long for bed availability. In the interim, his join aspirate culture has come back showing MRSA. I have since reach out to Ortho (Dr. Welch) to update him with this information who is happy to perform an I&D (possibly tomorrow) if still awaiting a bed. I called [facility] (accepting facility) and was notified that patient was next on the list to receive a bed and that there are several anticipated discharges for the day on the Ortho unit and upon their departure, patient should be provided a bed. around 1248: notified that bed was available Again, this patient was admitted with a dislocated left hip that by history was thought to have occurred approximately 3 to 4 weeks prior to this hospitalization. Patient has been mostly bedbound since July and residing in a [facility] following that hospitalization. Patient hospitalized July through August for MRSA bacteremia thought to be secondary to a thoracic abscess. Has been following a health and safety specialist and given the size/nature of abscessdeemed nonsurgical. Has been having subsequent MRIs showing improving abscess. He has since completed a full course of IV antibiotic therapy followed by oral antibiotic therapy as outlined by ID. Admitted 03/14 with notable left hip dislocation. Initially, no obvious signs of septic arthritis. Patient was afebrile without leukocytosis. His inflammatory markers had been down trending when compared to July. Imaging did suggest some surrounding fluid. Patient was seen by orthopedics who believed this was potentially a chronic dislocation. Unfortunately, with severe destruction of the femoral headreduction impossible without repair. Given his remote history of bacteremia, surgical intervention was not recommended by orthopedics. With the fluid in the hip seen on imaging and clinically, and his remote history of MRSA bacteremiaarthrocentesis performed that has since come back showing MRSA consistent with [place] septic arthritis. At the very least, I&D warranted. Unlikely to have surgical intervention regarding the dislocated hip until infectious process cleared. Patient remains on IV vancomycin (deemed appropriate based on culture data). Concurrently, he was found to have ESBL E. coli and Pseudomonas on his urine culture for which he is now on Merrem. Joint aspirate is not showing any evidence of gram-negative organisms. Echocardiogram has since been ordered given translocation of MRSA to the left hip likely from prior bacteremia (to rule out endocarditis)but not yet performed. Patient denies F/C, CP, SOB, abd pain, N/V. Review of Systems Review of Systems: All systems reviewed and are unremarkable except as noted in HPI and below Denies fevers, chills, headache, nasal congestion, sore throat, cough, chest pain, shortness of breath, abdominal pain, nausea, vomiting, dysuria, hematuria, frequency, skin lesions or rashes. Physical Exam Physical Exam: General: Resting comfortably in his hospital bed. NAD. Neck: No JVD. Negative hepatojugular reflex Cardiac: RRR with 2/6 NICKI Lungs: CTA without W/R/R Abdomen: Normoactive X4. Soft and nontender in all quadrants. Extremities: left hip with obvious deformity (can feel the joint socket) Neuro: A&O X4 cranial nerves II through XII are grossly intact no focal neuro deficits Skin: No obvious skin lesions or rashes Results & Data Results & Data ([facility]) Vital Signs (Past 12 Hours) Vital Signs Temp Pulse Resp BP BP Pulse Ox 03/20/21 13:12 36.5 C 74 15 109/71 110/66 98 03/20/21 11:15 74 15 98 03/20/21 08:30 36.5 C 74 16 109/71 97 03/20/21 07:04 74 15 93 Laboratory Results 03/20/21 07:30 03/20/21 07:30 MRSA RX M.I.C. --- --------- Clindamycin R <=0.5 Daptomycin S 1 Erythromycin R >4 Oxacillin R >2 Rifampin S <=1 Tetracycline S <=4 Trimeth/Sulfa S <=0.5/9.5 Vancomycin S PG Care Time/CCT Total # of Minutes Spent Total Time Spent with Patient: Total time spent is greater than 50% in coordination of care (as documented) at patient's floor/unit and/or counseling patient: Coding [place] [address] Subseq Hosp Care Lvl 3 Patient Type Established History Detailed Exam Detailed Diagnoses Septic arthritis M00.9 UTI (urinary tract infection) N39.0 Dislocation of left hip S73.005A Osteomyelitis M86.9 HTN (hypertension) I10 HLD (hyperlipidemia) E78.5 Depression F32.9 Anxiety F41.9 Paranoid schizophrenia, chronic condition F20.0 Seizure disorder G40.909 Thoracic abscess J86.9 MRSA bacteremia R78.81; B95.62 Weakness R53.1 Anemia D64.9
--- NOTE | 2021-03-20 17:52 | XCELERA ---
[id number]
[2021-03-21 17:06] LABS: Lyme DNA PCR CSF or Synovial Not detected (Not Detected); Lyme DNA Source Synovial Fluid
== END 2021-03-20 15:58 | disposition short-term general hospital (02) | DRG 548 ==
LOC: ED 13:17 → 3W 21:14 → SUATTDRO 21:14 → 3W 22:15

== ENCOUNTER 2021-08-19 22:03 | Inpatient (IN) ==
[2021-08-19] MEDS ORDERED: SODIUM CHLORIDE 0.9% 1000ML 2,000 ML IV ONE (22:09)
[2021-08-19] MEDS ORDERED: SODIUM CHLORIDE 0.9% 1000ML 1,000 ML IV ONE ×2 (22:09→23:57)
--- NOTE | 2021-08-19 22:18 | Emergency Department Note ---
Impression & Plan Septic shock, Respiratory failure, Lactic acidosis, Acute urinary retention, Acute UTI, Complication, blocked Medina catheter ED Provider Note Name: SAIRA TSAI Age: 66 Sex: M Arrives Via: Ambulance Informant: EMS ED Provider: Amish Novoa MD Chief Complaint: Illness Impression: As per impressions above Medical Decision Makin-year-old male arrives for acute altered mental status with fever and hypoxia. On arrival patient is in septic shock with blood pressure of 70/40 and heart rate of 130 and temperature of 39.9. His oxygen saturation is 60% on room air. Sepsis work-up immediately initiated to further IVs obtained and 3 L of IV fluids were started. Following cultures empiric antibiotics were ordered as well. Patient essentially obtunded with poor respiratory effort and while oxygen does come up on nasal cannula O2/nonrebreather it is clear that intubation is indicated. Patient intubated without difficulty. A new medina catheter placed which noted a large urine output of 1.5 L of purulent material. I will note that on arrival there was no urine in the catheter other than dried exudate. As fluids were given blood pressure did start improving along with an improvement in heart rate. Labs starting to return with mildly elevated white count but significantly elevated lactic acidosis. Blood pressure started trending down again and he was started on Levophed as well as further fluids. Patient managed between [facility] and then critical care team is aware. Patient with persistent hypotension though map somewhat stable so decision to go to CT to rule out per bowel given his recent colonoscopy. Due to mental status and respiratory issues did feel that getting CT of the head and chest were reasonable to. Given the severe acuity of the patient is clear he would not be eligible for transfer at this time as it is nor would he be a surgical candidate until little bit more stable. Thus the plan will be to take to the CT scan and then emergently take him to the ICU for further management. That I suspect the primary cause of his septic shock is due to urinary source. It appears he was in acute urinary retention with a liter and a half of purulent urine in his bladder. His chest x-ray is not overly concerning for acute pneumonia and his abdominal exam while hyperactive bowel sounds does not have diffuse tenderness on palpation that would be expected with acute perforation. I will note the patient does have known chronic discitis/osteomyelitis at the spine for which he was on IV antibiotics. Is unclear if he has been receiving IV vancomycin within the last 24 hours thus regardless he received empiric antibiotics and sepsis bundle was completed. 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 While encephalopathic on arrival he did not seem to have much pain in that area when palpated or moved. There is no overlying erythema. Would seem less likely that that is the acute source of infection given the more likely urinary source at this time. Prior Medical Record and Triage/Nursing Notes reviewed by Me Additional history obtained from chart and jail notes Differentials:Viral syndrome, otitis, pharyngitis, pneumonia, influenza, meningitis, urinary tract infection, sepsis, bacteremia, as well as other pathologies. Vital Signs: reviewed and remarkable for hypotension, tachycardia, hypoxia, febrile Interventions: Extensive interventions including fluid bolus, Zosyn amongst others Given the patients BMI >30, IBW was used to calculate the 30ml/kg fluid bolus. Labs:Reviewed and remarkable for lactic acidosis Imaging:See imaging below. Chest x-ray with 1 view mild pulmonary edema findings with ET tube in place. EKG:Per My Interpretation: Indication Septic shock: Sinus Tach 104 bpm, qtc 433. No Ectopy. No Ischemia. Compared to EKG 03/14/21, no significant changes. Cardiac/Tele Monitoring: Cardiac Monitoring: An Order was placed for continuous cardiac monitoring. The monitor shows a rate of 110 with a sinus tach rhythm. Consults:CCM and Hospitalist service Plan: Disposition:Hospitalization. Condition: Critically ill History of Present Illness:66-year-old gentleman arrives for evaluation of se psis. Patient with acute onset worsening mental status and confusion. He has [facility] in a jail for quite some time now and receiving IV antibiotics for a left hip infection. This evening he was eating dinner and gradually worsening mental status issues. He was noted to be febrile and hypoxic with a oxygen saturation of 66% and a temp of 101. He received no medications prior to arrival he was placed on a nonrebreather. Patient is too altered to give any history but nods his head no when asked about pain or discomfort. Per chart it appears he has been on IV vancomycin. Chart review it appears patient did have a colonoscopy about 4 to 5 days ago. ROS: Unable to obtain due to patient confusion Past Medical History:See Below Past Surgical History:See Below Family History:See Below Social History:See Below Home Medications:See Below Allergies:Morphine, Lovenox pain Vitals:Blood Pressure: 77/40, Pulse 130, RR 25, T 39C, O2 60% on RA Physical Exam: GENERAL: Patient is severely ill on top of chronically ill appearing and in m inimal distress. EYES: No scleral icterus, unremarkable pupils. ENT: Mucous membranes dry, no nasal congestion. NECK: No masses appreciated, nomeningismus, trachea is midline. RESPIRATORY: Poor respiratory effort with moderate tachypnea and diffuse crackles all lung grimm. Very junky lung grimm. CARDIOVASCULAR: Tachycardic.No murmurs, rubs, gallops appreciated. GASTROINTESTINAL: Mildly distended nontender with hyperactive bowel sounds throughout. Large brown diarrheal bowel movement during examination. Suprapubic fullness questionable tenderness. BACK: No midline tenderness, no CVA tenderness EXTREMITIES: Wasting all extremities with edema and lower legs. NEUROLOGIC: Quite somnolent/obtunded looking around room periodically nodding to some questions. Weakly moves arms and slightly legs SKIN: No rash, no jaundice, no diaphoresis. Medina catheter noted to be nondraining with purulent urine within the catheter tubing and unable to be flushed. ED Course: Times/Reassessments: Extensive bedside management of patient throughout. Waxing and waning hypotension with stabilized map felt best course to get CT and get the critical care for further management. Procedures: Endotracheal Intubation Indication: Respiratory Failure The patient was being bagged by respiratory with BVM. Suction, airway equipment, RSI drugs, respiratory equipment, and appropriate personnel were prepared prior to the initiation of the procedure. A time out was taken. Induction was performed with Etomidate & succinylcholine. After observing the clinical benefit of the medications, the airway was easily visualized utilizing a #4 glide scope blade. A 7.5 size ETT tube was placed atraumatically to 24 cm using standard technique. The cuff inflated without signs of malfunction. There were bilateral breath sounds, positive colormetric change, no gastric sounds, a good capnography waveform, and post procedure pulse oximetry was 98%. Post intubation sedation and paralysis was administered using propofol. There were no complications. Critical Care: I have personally spent 95 minutes of critical care time in the direct management of this patient. Acute respiratory failure in the setting of septic shock requiring intubation and resuscitation this was a life/limb threatening event. This 95 minutes is in excess of all separately billable procedures. Amish Novoa MD Past Med/Surg History Medical History (Updated 08/20/21 @ 10:59 by Anai Caal MD) OCTAVIO (acute kidney injury) Anemia Anxiety Depression Discitis GERD (gastroesophageal reflux disease) Glaucoma History of COVID-19 per [facility] records dated 02/27/2021 History of MRSA infection Hyperlipidemia Hypertension Hypothyroidism Indwelling Medina catheter present Morbid obesity due to excess calories Neuromuscular dysfunction of bladder Obesity Osteoarthritis of hip Osteomyelitis Paranoid schizophrenia, chronic condition PICC (peripherally inserted central catheter) in place Pleural effusion Seizure disorder Severe muscle deconditioning Shortness of breath Thoracic abscess Vitamin D deficiency Surgical History History of appendectomy History of cholecystectomy History of colonoscopy History of umbilical hernia repair History of wisdom tooth extraction Family History Father Family history of diabetes mellitus Mother Family history of diabetes mellitus Brother Family history of diabetes mellitus Other No family history of adverse response to anesthesia Social History Smoking Status: Unknown if ever smoked Second Hand Exposure: No; Preferred Language: Turkmen Communication Ability: On Vent Demurrage Worker Required: No Beliefs That Will Affect Care: None marital status: Current Living Situation: [facility] How many Children do You have: 0 Feels Safe at Home: Yes Assistive Devices: None Assistive Devices Comment: unable to obtain-pt intubated Allergies Allergies Allergy/AdvReac Type Severity Reaction Status Date / Time loxapine AdvReac Mild restless Verified 08/19/21 23:26 and nervous morphine AdvReac Mild nausea/vomi Verified 08/19/21 23:26 ting Home Meds Home Medications Medication Instructions Recorded Confirmed venlafaxine 150 mg 150 mg PO QAM 01/13/19 08/19/21 capsule,extended release 24 hr folic acid 1 mg tablet 1 mg PO QAM 07/21/20 08/19/21 carbamazepine 200 mg tablet 600 mg PO Q12 07/31/20 08/19/21 (Tegretol) tramadol 50 mg tablet 50 mg PO TID PRN 10/23/20 08/19/21 aripiprazole 5 mg tablet (Abilify) 5 mg PO QAM 03/14/21 08/19/21 ascorbic acid (vitamin C) 500 mg 500 mg PO QAM 03/14/21 08/19/21 capsule atorvastatin 10 mg tablet 10 mg PO HS 03/14/21 08/19/21 baclofen 10 mg tablet 20 mg PO QAM 03/14/21 08/19/21 cholecalciferol (vitamin D3) 125 125 mcg PO QAM 03/14/21 08/19/21 mcg (5,000 unit) tablet (Vitamin D3) cyanocobalamin (vitamin B-12) 1,000 mcg PO QAM 03/14/21 08/19/21 1,000 mcg tablet (Vitamin B-12) ferrous sulfate 325 mg (65 mg 325 mg PO DAILY 03/14/21 08/19/21 iron) tablet furosemide 40 mg tablet 40 mg PO DAILY 03/14/21 08/19/21 gabapentin 300 mg capsule 300 mg PO Q8 03/14/21 08/19/21 ipratropium 20 mcg-albuterol 100 1 puff INHALATION QID 03/14/21 08/19/21 mcg/actuation mist for inhalation (Combivent Respimat) lidocaine 4 % topical patch 1 patch TOPICAL DAILY PRN 03/14/21 08/19/21 metoprolol tartrate 50 mg tablet 50 mg PO BID 03/14/21 08/19/21 potassium chloride 20 mEq 40 meq PO BID 03/14/21 08/19/21 tablet,extended release(part/cryst) venlafaxine 75 mg capsule,extended 75 mg PO QAM 03/14/21 08/19/21 release 24 hr levothyroxine 25 mcg tablet 25 mcg PO DAILY 06/28/21 08/19/21 oxycodone 5 mg capsule 5 mg PO Q8H PRN 06/28/21 08/19/21 timolol 0.5 % eye drops 1 drp OPHTHALMIC (EYE) DAILY 08/05/21 08/19/21 aspirin 81 mg tablet,delayed 81 mg PO DAILY 08/13/21 08/19/21 release (Aspirin Low Dose) bisacodyl 10 mg rectal suppository 10 mg [place] DAILY PRN 08/13/21 08/19/21 (Dulcolax (bisacodyl)) cyanocobalamin (vitamin B-12) 1,000 mcg SUBCUT MONTHLY 08/13/21 08/19/21 1,000 mcg/mL injection kit polyethylene glycol 3350 17 17 g PO DAILY 08/13/21 08/19/21 gram/dose oral powder (Miralax) simethicone 80 mg tablet 80 mg PO Q6 PRN 08/13/21 08/19/21 sodium phosphates 19 gram-7 118 ml [place] DAILY PRN 08/13/21 08/19/21 gram/118 mL enema (Enema) ondansetron HCl 4 mg tablet 4 mg PO Q6H PRN 08/19/21 08/19/21 Previous Rx's Medication Instructions Recorded tamsulosin 0.4 mg capsule 0.4 mg PO HS #0 cap 08/23/20 acetaminophen 325 mg tablet 650 mg PO Q4H PRN #30 tab 03/18/21 Results & Data (ED) Vital Signs Vital Signs - 24 hr 08/19/21 21:55 08/19/21 22:30 08/19/21 23:15 Temperature 39.9 C H Temperature Source Rectal Pulse Rate 115 H 109 H Pulse Rate from SpO2 Sensor Respiratory Rate 20 20 18 Blood Pressure 77/44 L 87/63 L Blood Pressure Mean 55 71 Pulse Oximetry 98 99 96 Oxygen Delivery Method Non-rebreather Oxygen Flow Rate 15 Fraction of Inspired Oxygen 40 Sepsis Recent Fever Within 48 Hours Yes Sepsis New/Unexplained Change in Mental Status Yes Sepsis Action Taken by Nursing Physician Notified End-Tidal CO2 32 38 08/19/21 23:20 08/19/21 23:25 08/19/21 23:30 Temperature Temperature Source Pulse Rate 106 H 109 H 105 H Pulse Rate from SpO2 Sensor 109 H Respiratory Rate 24 20 20 Blood Pressure 91/55 L 88/61 L 78/62 L Blood Pressure Mean 67 70 67 Pulse Oximetry 95 95 97 Oxygen Delivery Method Oxygen Flow Rate Fraction of Inspired Oxygen Sepsis Recent Fever Within 48 Hours Sepsis New/Unexplained Change in Mental Status Sepsis Action Taken by Nursing End-Tidal CO2 33 47 39 08/19/21 23:32 08/19/21 23:35 08/19/21 23:40 Temperature Temperature Source Pulse Rate 103 H 101 H 98 H Pulse Rate from SpO2 Sensor Respiratory Rate 20 20 22 Blood Pressure 80/50 L 76/46 L 81/50 L Blood Pressure Mean 60 56 60 Pulse Oximetry 95 95 Oxygen Delivery Method Oxygen Flow Rate Fraction of Inspired Oxygen Sepsis Recent Fever Within 48 Hours Sepsis New/Unexplained Change in Mental Status Sepsis Action Taken by Nursing End-Tidal CO2 35 35 38 08/19/21 23:45 08/19/21 23:51 08/19/21 23:53 Temperature Temperature Source Pulse Rate 97 H 98 H 97 H Pulse Rate from SpO2 Sensor Respiratory Rate 22 22 22 Blood Pressure 93/44 L 72/54 L 74/48 L Blood Pressure Mean 60 60 56 Pulse Oximetry 96 96 96 Oxygen Delivery Method Oxygen Flow Rate Fraction of Inspired Oxygen Sepsis Recent Fever Within 48 Hours Sepsis New/Unexplained Change in Mental Status Sepsis Action Taken by Nursing End-Tidal CO2 31 32 08/19/21 23:55 08/19/21 23:56 08/20/21 00:00 Temperature Temperature Source Pulse Rate 98 H 98 H 98 H Pulse Rate from SpO2 Sensor Respiratory Rate 24 22 22 Blood Pressure 58/46 L 65/52 L 98/59 L Blood Pressure Mean 50 56 72 Pulse Oximetry 98 96 96 Oxygen Delivery Method Oxygen Flow Rate Fraction of Inspired Oxygen Sepsis Recent Fever Within 48 Hours Sepsis New/Unexplained Change in Mental Status Sepsis Action Taken by Nursing End-Tidal CO2 31 36 40 08/20/21 00:05 08/20/21 00:10 Temperature Temperature Source Pulse Rate 98 H 96 H Pulse Rate from SpO2 Sensor Respiratory Rate 22 20 Blood Pressure 87/54 L 86/55 L Blood Pressure Mean 65 65 Pulse Oximetry 95 96 Oxygen Delivery Method Oxygen Flow Rate Fraction of Inspired Oxygen Sepsis Recent Fever Within 48 Hours Sepsis New/Unexplained Change in Mental Status Sepsis Action Taken by Nursing End-Tidal CO2 33 36 Laboratory Data Result diagrams: 08/23/21 04:21 08/23/21 04:21 Lab Results 08/19/21 08/19/21 08/19/21 Range/Units 22:15 22:15 22:15 WBC 2.87 L (4.8-10.8) K/uL RBC 3.38 L (4.7-6.1) M/uL Hgb 11.5 L (14.0-18.0) g/dL Hct 35.6 L (42-52) % MCV 105.3 H (80-100) fL MCH 34.0 (25-34) pg MCHC 32.3 (32-36) g/dL RDW Std Deviation 60.4 H (36.4-46.3) fL RDW Coeff of Peng 15.9 H (11.5-14.5) % Plt Count 152 (130-400) K/uL MPV 10.6 H (7.4-10.4) fL Immature Gran % (Auto) 0.0 % Neut % (Auto) 94.1 % Lymph % (Auto) 4.2 % Mason % (Auto) 1.7 % Eos % (Auto) 0.0 % Baso % (Auto) 0.0 % Neut # (Auto) 2.70 (1.4-6.5) K/uL Lymph # (Auto) 0.12 L (1.2-3.4) K/uL Mason # (Auto) 0.05 L (0.11-0.59) K/uL Eos # (Auto) 0.00 (0-0.5) K/uL Baso # (Auto) 0.00 (0-0.2) K/uL Immature Gran # (Auto) 0.00 (0.00-0.02) K/uL Absolute Nucleated RBC 0.02 H (0-0) K/uL Nucleated RBC % (auto) 0.7 % PT (9.0-12.0) Seconds INR (0.9-1.1) VBG pH (7.36-7.41) VBG pCO2 (38-50) mmHg VBG pO2 mmHg VBG HCO3 mmol/L VBG O2 Saturation % VBG Base Excess mEq/L Sodium 141 (136-145) mmol/L Potassium 3.7 (3.5-5.1) mmol/L Chloride 109 H (98-107) mmol/L Carbon Dioxide 18 L (21-32) mmol/L Anion Gap 14 H (3-11) BUN 31 H (6-23) mg/dl Creatinine 2.00 H D (0.6-1.4) mg/dl Est Cr Clr Drug Dosing Not Reportable Est GFR ( Amer) 39.4 ml/min Est GFR (Non-Af Amer) 34.0 ml/min BUN/Creatinine Ratio 15.5 (10-20) Glucose 99 (70-99(Fasting)) mg/dl Lactate 5.5 H* (0.4-2.0) mmol/L Calcium 8.3 L (8.5-10.1) mg/dl Magnesium 1.7 (1.7-2.4) mg/dl Total Bilirubin 0.8 (0.2-1.0) mg/dl Direct Bilirubin 0.3 H (0-0.2) mg/dl AST 15 (13-39) U/L ALT 15 (7-52) U/L Alkaline Phosphatase 80 (34-104) U/L Troponin I 0.04 (0-0.04) ng/ml Total Protein 6.6 (6.0-8.3) gm/dl Albumin 3.6 (3.4-5.0) gm/dl Lipase 11 (11-82) U/L Procalcitonin (0-0.5) ng/ml TSH (0.300-4.500) uIu/ml Urine Color Urine Appearance (Clear) Urine pH (4.5-7.5) Ur Specific [place] (1.000-1.030) Urine Protein (Negative) Urine Glucose (UA) (Negative) Urine Ketones (Negative) Urine Blood (Negative) Urine Nitrite (Negative) Urine Bilirubin (Negative) Urine Urobilinogen (Negative) Ur Leukocyte Esterase (Negative) Urine WBC (Auto) (0-5) /hpf Urine RBC (Auto) (0-4) /hpf U Hyaline Cast (Auto) (0-5) /lpf U Epithel Cells (Auto) (0-5) /lpf Urine Bacteria (Auto) (Negative) Urine Yeast Stl C. diff Tox B Gene (Neg) SARS-CoV-2, RNA, NAAT (NEGATIVE) 08/19/21 08/19/21 08/19/21 Range/Units 22:15 22:15 22:15 WBC (4.8-10.8) K/uL RBC (4.7-6.1) M/uL Hgb (14.0-18.0) g/dL Hct (42-52) % MCV (80-100) fL MCH (25-34) pg MCHC (32-36) g/dL RDW Std Deviation (36.4-46.3) fL RDW Coeff of Peng (11.5-14.5) % Plt Count (130-400) K/uL MPV (7.4-10.4) fL Immature Gran % (Auto) % Neut % (Auto) % Lymph % (Auto) % Mason % (Auto) % Eos % (Auto) % Baso % (Auto) % Neut # (Auto) (1.4-6.5) K/uL Lymph # (Auto) (1.2-3.4) K/uL Mason # (Auto) (0.11-0.59) K/uL Eos # (Auto) (0-0.5) K/uL Baso # (Auto) (0-0.2) K/uL Immature Gran # (Auto) (0.00-0.02) K/uL Absolute Nucleated RBC (0-0) K/uL Nucleated RBC % (auto) % PT 10.3 (9.0-12.0) Seconds INR 1.0 (0.9-1.1) VBG pH (7.36-7.41) VBG pCO2 (38-50) mmHg VBG pO2 mmHg VBG HCO3 mmol/L VBG O2 Saturation % VBG Base Excess mEq/L Sodium (136-145) mmol/L Potassium (3.5-5.1) mmol/L Chloride (98-107) mmol/L Carbon Dioxide (21-32) mmol/L Anion Gap (3-11) BUN (6-23) mg/dl Creatinine (0.6-1.4) mg/dl Est Cr Clr Drug Dosing Est GFR ( Amer) ml/min Est GFR (Non-Af Amer) ml/min BUN/Creatinine Ratio (10-20) Glucose (70-99(Fasting)) mg/dl Lactate (0.4-2.0) mmol/L Calcium (8.5-10.1) mg/dl Magnesium (1.7-2.4) mg/dl Total Bilirubin (0.2-1.0) mg/dl Direct Bilirubin (0-0.2) mg/dl AST (13-39) U/L ALT (7-52) U/L Alkaline Phosphatase (34-104) U/L Troponin I (0-0.04) ng/ml Total Protein (6.0-8.3) gm/dl Albumin (3.4-5.0) gm/dl Lipase (11-82) U/L Procalcitonin 21.06 H (0-0.5) ng/ml TSH 1.295 (0.300-4.500) uIu/ml Urine Color Urine Appearance (Clear) Urine pH (4.5-7.5) Ur Specific [place] (1.000-1.030) Urine Protein (Negative) Urine Glucose (UA) (Negative) Urine Ketones (Negative) Urine Blood (Negative) Urine Nitrite (Negative) Urine Bilirubin (Negative) Urine Urobilinogen (Negative) Ur Leukocyte Esterase (Negative) Urine WBC (Auto) (0-5) /hpf Urine RBC (Auto) (0-4) /hpf U Hyaline Cast (Auto) (0-5) /lpf U Epithel Cells (Auto) (0-5) /lpf Urine Bacteria (Auto) (Negative) Urine Yeast Stl C. diff Tox B Gene (Neg) SARS-CoV-2, RNA, NAAT (NEGATIVE) 08/19/21 08/19/21 08/19/21 Range/Units 23:15 23:20 23:30 WBC (4.8-10.8) K/uL RBC (4.7-6.1) M/uL Hgb (14.0-18.0) g/dL Hct (42-52) % MCV (80-100) fL MCH (25-34) pg MCHC (32-36) g/dL RDW Std Deviation (36.4-46.3) fL RDW Coeff of Peng (11.5-14.5) % Plt Count (130-400) K/uL MPV (7.4-10.4) fL Immature Gran % (Auto) % Neut % (Auto) % Lymph % (Auto) % Mason % (Auto) % Eos % (Auto) % Baso % (Auto) % Neut # (Auto) (1.4-6.5) K/uL Lymph # (Auto) (1.2-3.4) K/uL Mason # (Auto) (0.11-0.59) K/uL Eos # (Auto) (0-0.5) K/uL Baso # (Auto) (0-0.2) K/uL Immature Gran # (Auto) (0.00-0.02) K/uL Absolute Nucleated RBC (0-0) K/uL Nucleated RBC % (auto) % PT (9.0-12.0) Seconds INR (0.9-1.1) VBG pH 7.17 L (7.36-7.41) VBG pCO2 53 H (38-50) mmHg VBG pO2 48 mmHg VBG HCO3 19 mmol/L VBG O2 Saturation 72.2 % VBG Base Excess -10.2 mEq/L Sodium (136-145) mmol/L Potassium (3.5-5.1) mmol/L Chloride (98-107) mmol/L Carbon Dioxide (21-32) mmol/L Anion Gap (3-11) BUN (6-23) mg/dl Creatinine (0.6-1.4) mg/dl Est Cr Clr Drug Dosing Est GFR ( Amer) ml/min Est GFR (Non-Af Amer) ml/min BUN/Creatinine Ratio (10-20) Glucose (70-99(Fasting)) mg/dl Lactate (0.4-2.0) mmol/L Calcium (8.5-10.1) mg/dl Magnesium (1.7-2.4) mg/dl Total Bilirubin (0.2-1.0) mg/dl Direct Bilirubin (0-0.2) mg/dl AST (13-39) U/L ALT (7-52) U/L Alkaline Phosphatase (34-104) U/L Troponin I (0-0.04) ng/ml Total Protein (6.0-8.3) gm/dl Albumin (3.4-5.0) gm/dl Lipase (11-82) U/L Procalcitonin (0-0.5) ng/ml TSH (0.300-4.500) uIu/ml Urine Color Yellow Urine Appearance Cloudy A (Clear) Urine pH 5.0 (4.5-7.5) Ur Specific [place] 1.014 (1.000-1.030) Urine Protein 1+ H (Negative) Urine Glucose (UA) Negative (Negative) Urine Ketones Negative (Negative) Urine Blood 3+ H (Negative) Urine Nitrite Negative (Negative) Urine Bilirubin Negative (Negative) Urine Urobilinogen Negative (Negative) Ur Leukocyte Esterase 3+ H (Negative) Urine WBC (Auto) >30 H (0-5) /hpf Urine RBC (Auto) >30 H (0-4) /hpf U Hyaline Cast (Auto) 0 (0-5) /lpf U Epithel Cells (Auto) 0-5 (0-5) /lpf Urine Bacteria (Auto) 2+ H (Negative) Urine Yeast Not Reportable Stl C. diff Tox B Gene (Neg) SARS-CoV-2, RNA, NAAT NEGATIVE (NEGATIVE) 08/19/21 Range/Units Unknown WBC (4.8-10.8) K/uL RBC (4.7-6.1) M/uL Hgb (14.0-18.0) g/dL Hct (42-52) % MCV (80-100) fL MCH (25-34) pg MCHC (32-36) g/dL RDW Std Deviation (36.4-46.3) fL RDW Coeff of Peng (11.5-14.5) % Plt Count (130-400) K/uL MPV (7.4-10.4) fL Immature Gran % (Auto) % Neut % (Auto) % Lymph % (Auto) % Mason % (Auto) % Eos % (Auto) % Baso % (Auto) % Neut # (Auto) (1.4-6.5) K/uL Lymph # (Auto) (1.2-3.4) K/uL Mason # (Auto) (0.11-0.59) K/uL Eos # (Auto) (0-0.5) K/uL Baso # (Auto) (0-0.2) K/uL Immature Gran # (Auto) (0.00-0.02) K/uL Absolute Nucleated RBC (0-0) K/uL Nucleated RBC % (auto) % PT (9.0-12.0) Seconds INR (0.9-1.1) VBG pH (7.36-7.41) VBG pCO2 (38-50) mmHg VBG pO2 mmHg VBG HCO3 mmol/L VBG O2 Saturation % VBG Base Excess mEq/L Sodium (136-145) mmol/L Potassium (3.5-5.1) mmol/L Chloride (98-107) mmol/L Carbon Dioxide (21-32) mmol/L Anion Gap (3-11) BUN (6-23) mg/dl Creatinine (0.6-1.4) mg/dl Est Cr Clr Drug Dosing Est GFR ( Amer) ml/min Est GFR (Non-Af Amer) ml/min BUN/Creatinine Ratio (10-20) Glucose (70-99(Fasting)) mg/dl Lactate (0.4-2.0) mmol/L Calcium (8.5-10.1) mg/dl Magnesium (1.7-2.4) mg/dl Total Bilirubin (0.2-1.0) mg/dl Direct Bilirubin (0-0.2) mg/dl AST (13-39) U/L ALT (7-52) U/L Alkaline Phosphatase (34-104) U/L Troponin I (0-0.04) ng/ml Total Protein (6.0-8.3) gm/dl Albumin (3.4-5.0) gm/dl Lipase (11-82) U/L Procalcitonin (0-0.5) ng/ml TSH (0.300-4.500) uIu/ml Urine Color Urine Appearance (Clear) Urine pH (4.5-7.5) Ur Specific [place] (1.000-1.030) Urine Protein (Negative) Urine Glucose (UA) (Negative) Urine Ketones (Negative) Urine Blood (Negative) Urine Nitrite (Negative) Urine Bilirubin (Negative) Urine Urobilinogen (Negative) Ur Leukocyte Esterase (Negative) Urine WBC (Auto) (0-5) /hpf Urine RBC (Auto) (0-4) /hpf U Hyaline Cast (Auto) (0-5) /lpf U Epithel Cells (Auto) (0-5) /lpf Urine Bacteria (Auto) (Negative) Urine Yeast Stl C. diff Tox B Gene Negative Cdiff Gene (Neg) SARS-CoV-2, RNA, NAAT (NEGATIVE) Administered Medications Acetaminophen (Acetaminophen Susp 325 Mg/10.15 Ml Udc) 650 mg PO Q6H PRN PRN Reason: Fever Stop: 09/19/21 10:19 Last Admin: 08/20/21 11:48 Dose: 650 mg Documented by: [id number] Aripiprazole (A[facility]ip[facility]ole 5 Mg Tab) [facility] [place] Stop: 09/22/21 08:59 Last Admin: 08/23/21 07:42 Dose: 5 mg Documented by: [id number] Aspirin (Aspirin 81 Mg Ectab) 81 mg PO DAILY [facility] Stop: 09/22/21 08:59 Last Admin: 08/23/21 07:40 Dose: 81 mg Documented by: [id number] Atorvastatin Calcium (Atorvastatin 10 Mg Tab) 10 mg PO HS [facility]ODE Stop: 09/21/21 20:59 Last Admin: 08/22/21 19:56 Dose: 10 mg Documented by: [id number] Carbamazepine (Carbamazepine 100 Mg Chew Tab) 300 mg PO Q6 KAYODE Stop: 09/19/21 11:59 Last Admin: 08/23/21 05:38 Dose: 300 mg Documented by: [id number] Admin: 08/23/21 00:17 Dose: Not Given Documented by: [id number] Admin: 08/22/21 17:28 Dose: 300 mg Documented by: [id number] Admin: 08/22/21 12:41 Dose: 300 mg Documented by: [id number] Admin: 08/22/21 06:26 Dose: 300 mg Documented by: [id number] Admin: 08/21/21 21:47 Dose: 300 mg Documented by: [id number] Admin: 08/21/21 17:50 Dose: 300 mg Documented by: [id number] Admin: 08/21/21 11:19 Dose: 300 mg Documented by: [id number] Admin: 08/21/21 06:19 Dose: 300 mg Documented by: [id number] Admin: 08/21/21 00:06 Dose: 300 mg Documented by: [id number] Admin: 08/20/21 18:40 Dose: 300 mg Documented by: [id number] Admin: 08/20/21 11:43 Dose: 300 mg Documented by: [id number] Dextrose (Dextrose 50% 50 Ml Syringe) 25 - 50 ml IV UD PRN; Protocol PRN Reason: Hypoglycemia Protocol Stop: 09/21/21 00:17 Last Admin: 08/22/21 06:26 Dose: 25 ml Documented by: [id number] Docusate Sodium (Docusate Sodium Syrup 100 Mg/10 Ml Udc) 100 mg PO BID [facility] Stop: 09/19/21 11:59 Last Admin: 08/23/21 07:40 Dose: 100 mg Documented by: [id number] Admin: 08/22/21 19:56 Dose: 100 mg Documented by: [id number] Admin: 08/22/21 08:01 Dose: 100 mg Documented by: [id number] Admin: 08/21/21 21:46 Dose: 100 mg Documented by: [id number] Admin: 08/21/21 08:23 Dose: 100 mg Documented by: [id number] Admin: 08/20/21 20:10 Dose: 100 mg Documented by: [id number] Admin: 08/20/21 11:43 Dose: 100 mg Documented by: [id number] Furosemide (Furosemide 40 Mg Tab) 40 mg PO DAILY [facility] Stop: 09/22/21 08:59 Last Admin: 08/23/21 07:40 Dose: 40 mg Documented by: [id number] Pantoprazole Sodium 40 mg/ (Syringe) 10 mls @ 5 mls/min IV DAILY@1100 [facility] Stop: 09/19/21 10:59 Last Admin: 08/22/21 12:41 Dose: 5 mls/min Documented by: [id number] Admin: 08/21/21 11:18 Dose: 5 mls/min Documented by: [id number] Admin: 08/20/21 11:39 Dose: 5 mls/min Documented by: [id number] Dextrose/Sodium Chloride (D5w And 1/2nss) 1,000 mls @ 50 mls/hr IV .Q20H [facility] Stop: 09/21/21 08:14 Last Infusion: 08/23/21 08:05 Dose: 0 mls/hr Documented by: [id number] Admin: 08/23/21 05:37 Dose: 50 mls/hr Documented by: [id number] Infusion: 08/23/21 04:55 Dose: 50 mls/hr Documented by: [id number] Admin: 08/22/21 08:55 Dose: 50 mls/hr Documented by: [id number] Ceftriaxone Sodium 2,000 mg/ (Dextrose) 70 mls @ 140 mls/hr IV DAILY@1400 [facility]; Protocol Stop: 09/05/21 13:59 Last Infusion: 08/22/21 14:37 Dose: 0 mls/hr Documented by: [id number] Admin: 08/22/21 14:07 Dose: 140 mls/hr Documented by: [id number] Levothyroxine Sodium (Levothyroxine Sodium 25 Mcg Tablet) 25 mcg PO DAILYBB [facility] Stop: 09/22/21 06:29 Last Admin: 08/23/21 05:38 Dose: 25 mcg Documented by: [id number] Metoprolol Tartrate (Metoprolol Tartrate 50 Mg Tab) 50 mg PO BID [facility] Stop: 09/22/21 08:59 Last Admin: 08/23/21 07:40 Dose: 50 mg Documented by: [id number] Timolol Maleate (Timolol Maleate 0.5% Op Soln 5 Ml Btl) 1 drops OP DAILY [facility] Stop: 09/19/21 08:59 Last Admin: 08/23/21 07:42 Dose: 1 drops Documented by: [id number] Admin: 08/22/21 08:01 Dose: 1 drops Documented by: [id number] Admin: 08/21/21 08:23 Dose: 1 drops Documented by: [id number] Admin: 08/20/21 08:31 Dose: 1 drops Documented by: [id number] Venlafaxine HCl (Venlafaxine Hcl Xr 150 Mg Capxr) 150 mg PO QAM [facility] Stop: 09/22/21 08:59 Last Admin: 08/23/21 07:42 Dose: 150 mg Documented by: [id number] Venlafaxine HCl (Venlafaxine Hcl Xr 75 Mg Capxr) 75 mg PO QAM [facility] Stop: 09/22/21 08:59 Last Admin: 08/23/21 07:43 Dose: 75 mg Documented by: [id number] Discontinued Medications Fentanyl Citrate (Fentanyl Bolus From Bag) 50 mcg IV Q60M PRN PRN Reason: Pain or Agitation Stop: 09/03/21 01:29 Last Admin: 08/21/21 00:30 Dose: 50 mcg Documented by: [id number] Heparin Sodium (Porcine) (Heparin Sod 5,000 Unit/0.5 Ml Vial) 5,000 units SQ Q12 [facility] Stop: 09/19/21 20:59 Last Admin: 08/20/21 20:11 Dose: 5,000 units Documented by: [id number] Sodium Chloride (Nss 1000ml) 1,000 mls @ 999 mls/hr IV .Q1H1M ONE Stop: 08/19/21 23:09 Last Infusion: 08/20/21 00:00 Dose: 0 mls/hr Documented by: [id number] Admin: 08/19/21 22:09 Dose: 999 mls/hr Documented by: [id number] Sodium Chloride (Nss 1000ml) 2,000 mls @ 999 mls/hr IV .Q2H1M ONE Stop: 08/20/21 00:09 Last Infusion: 08/20/21 00:10 Dose: 0 mls/hr Documented by: [id number] Admin: 08/19/21 22:09 Dose: 999 mls/hr Documented by: [id number] Piperacillin Sod/Tazobactam Sod (Zosyn) 4.5 gm in 120 mls @ 240 mls/hr IV NOW ONE Stop: 08/19/21 23:14 Last Infusion: 08/20/21 00:00 Dose: 0 mls/hr Documented by: [id number] Admin: 08/19/21 23:27 Dose: 240 mls/hr Documented by: [id number] Acetaminophen (Ofirmev) 1,000 mg in 100 mls @ 400 mls/hr IV NOW STA Stop: 08/19/21 23:08 Last Infusion: 08/19/21 23:27 Dose: 0 mls/hr Documented by: [id number] Admin: 08/19/21 23:12 Dose: 400 mls/hr Documented by: [id number] Propofol (Diprivan) 1,000 mg in 100 mls @ 0 mls/hr IV .Q0M [facility]; Protocol Stop: 08/22/21 23:03 Last Titration: 08/20/21 08:50 Dose: 0 mcg/kg/min, 0 mls/hr Documented by: [id number] Titration: 08/20/21 00:00 Dose: 0 mcg/kg/min, 0 mls/hr Documented by: [id number] Admin: 08/19/21 23:14 Dose: 5 mcg/kg/min, 3.1 mls/hr Documented by: [id number] Cosigned by: [id number] Norepinephrine Bitartrate (Levophed/D5w) 8 mg in 508 mls @ 0 mls/hr IV .Q0M [facility]; Protocol Stop: 09/18/21 23:44 Last Titration: 08/22/21 14:36 Dose: 0 mcg/kg/min, 0 mls/hr Documented by: [id number] Admin: 08/22/21 09:00 Dose: Not Given Documented by: [id number] Admin: 08/22/21 09:00 Dose: Not Given Documented by: [id number] Titration: 08/21/21 17:50 Dose: 0 mcg/kg/min, 0 mls/hr Documented by: [id number] Titration: 08/21/21 12:00 Dose: 0.01 mcg/kg/min, 4 mls/hr Documented by: [id number] Titration: 08/21/21 10:44 Dose: 0.02 mcg/kg/min, 8 mls/hr Documented by: [id number] Titration: 08/21/21 08:35 Dose: 0.03 mcg/kg/min, 12 mls/hr Documented by: [id number] Titration: 08/21/21 07:24 Dose: 0.04 mcg/kg/min, 16 mls/hr Documented by: [id number] Cosigned by: [id number] Titration: 08/21/21 06:12 Dose: 0.04 mcg/kg/min, 16 mls/hr Documented by: [id number] Admin: 08/21/21 01:20 Dose: 0.06 mcg/kg/min, 24 mls/hr Documented by: [id number] Cosigned by: [id number] Titration: 08/21/21 01:20 Dose: 0.06 mcg/kg/min, 24 mls/hr Documented by: [id number] Cosigned by: [id number] Titration: 08/21/21 00:04 Dose: 0.06 mcg/kg/min, 24 mls/hr Documented by: [id number] Titration: 08/20/21 22:44 Dose: 0.08 mcg/kg/min, 31.9 mls/hr Documented by: [id number] Titration: 08/20/21 21:29 Dose: 0.1 mcg/kg/min, 39.9 mls/hr Documented by: [id number] Titration: 08/20/21 19:16 Dose: 0.12 mcg/kg/min, 47.9 mls/hr Documented by: [id number] Titration: 08/20/21 18:43 Dose: 0.12 mcg/kg/min, 47.9 mls/hr Documented by: [id number] Admin: 08/20/21 17:41 Dose: Not Given Documented by: [id number] Admin: 08/20/21 17:41 Dose: Not Given Documented by: [id number] Admin: 08/20/21 17:01 Dose: Not Given Documented by: [id number] Admin: 08/20/21 17:01 Dose: Not Given Documented by: [id number] Titration: 08/20/21 17:00 Dose: 0.14 mcg/kg/min, 55.9 mls/hr Documented by: [id number] Admin: 08/20/21 15:02 Dose: 0.16 mcg/kg/min, 63.9 mls/hr Documented by: [id number] Cosigned by: [id number] Titration: 08/20/21 13:00 Dose: 0.16 mcg/kg/min, 63.9 mls/hr Documented by: [id number] Cosigned by: [id number] Titration: 08/20/21 12:30 Dose: 0.18 mcg/kg/min, 71.9 mls/hr Documented by: [id number] Cosigned by: [id number] Titration: 08/20/21 12:00 Dose: 0.2 mcg/kg/min, 79.9 mls/hr Documented by: [id number] Cosigned by: [id number] Titration: 08/20/21 11:30 Dose: 0.22 mcg/kg/min, 87.8 mls/hr Documented by: [id number] Titration: 08/20/21 11:00 Dose: 0.24 mcg/kg/min, 95.8 mls/hr Documented by: [id number] Titration: 08/20/21 10:30 Dose: 0.26 mcg/kg/min, 103.8 mls/hr Documented by: [id number] Titration: 08/20/21 10:00 Dose: 0.28 mcg/kg/min, 111.8 mls/hr Documented by: [id number] Admin: 08/20/21 09:54 Dose: Not Given Documented by: [id number] Admin: 08/20/21 08:48 Dose: Not Given Documented by: [id number] Admin: 08/20/21 08:30 Dose: 0.3 mcg/kg/min, 119.8 mls/hr Documented by: [id number] Cosigned by: [id number] Titration: 08/20/21 08:30 Dose: 0.33 mcg/kg/min, 131.8 mls/hr Documented by: [id number] Cosigned by: [id number] Admin: 08/20/21 05:00 Dose: 0.33 mcg/kg/min, 131.8 mls/hr Documented by: [id number] Cosigned by: [id number] Titration: 08/20/21 04:40 Dose: 0.33 mcg/kg/min, 131.8 mls/hr Documented by: [id number] Cosigned by: [id number] Titration: 08/20/21 02:59 Dose: 0.33 mcg/kg/min, 131.8 mls/hr Documented by: [id number] Titration: 08/20/21 02:35 Dose: 0.31 mcg/kg/min, 123.8 mls/hr Documented by: [id number] Titration: 08/20/21 02:11 Dose: 0.29 mcg/kg/min, 115.8 mls/hr Documented by: [id number] Titration: 08/20/21 01:40 Dose: 0.27 mcg/kg/min, 107.8 mls/hr Documented by: [id number] Titration: 08/20/21 01:05 Dose: 0.25 mcg/kg/min, 99.8 mls/hr Documented by: [id number] Titration: 08/20/21 00:45 Dose: 0.2 mcg/kg/min, 79.9 mls/hr Documented by: [id number] Titration: 08/20/21 00:30 Dose: 0.18 mcg/kg/min, 71.9 mls/hr Documented by: [id number] Titration: 08/20/21 00:25 Dose: 0.16 mcg/kg/min, 63.9 mls/hr Documented by: [id number] Titration: 08/20/21 00:16 Dose: 0.14 mcg/kg/min, 55.9 mls/hr Documented by: [id number] Titration: 08/20/21 00:07 Dose: 0.12 mcg/kg/min, 47.9 mls/hr Documented by: [id number] Titration: 08/19/21 23:55 Dose: 0.1 mcg/kg/min, 39.9 mls/hr Documented by: [id number] Admin: 08/19/21 23:40 Dose: 0.05 mcg/kg/min, 20 mls/hr Documented by: [id number] Cosigned by: [id number] Sodium Chloride (Nss 1000ml) 1,000 mls @ 999 mls/hr IV .Q1H1M ONE Stop: 08/20/21 00:57 Last Infusion: 08/20/21 01:00 Dose: 0 mls/hr Documented by: [id number] Admin: 08/20/21 00:00 Dose: 999 mls/hr Documented by: [id number] Sodium Bicarbonate 150 meq/ (Sodium Chloride) 1,150 mls @ 100 mls/hr IV .[id number] [facility] Stop: 09/19/21 00:44 Last Infusion: 08/20/21 03:18 Dose: 0 mls/hr Documented by: [id number] Admin: 08/20/21 00:35 Dose: 100 mls/hr Documented by: [id number] Vasopressin 20 units/ Sodium (Chloride) 101 mls @ 0 mls/hr IV .Q0M [facility] Stop: 09/19/21 01:29 Last Admin: 08/21/21 09:46 Dose: Not Given Documented by: [id number] Admin: 08/21/21 09:45 Dose: Not Given Documented by: [id number] Infusion: 08/21/21 09:44 Dose: 0 unit/min, 0 mls/hr Documented by: [id number] Admin: 08/21/21 09:44 Dose: Not Given Documented by: [id number] Infusion: 08/21/21 09:15 Dose: 0 unit/min, 0 mls/hr Documented by: [id number] Infusion: 08/21/21 07:24 Dose: 0.04 unit/min, 12.1 mls/hr Documented by: [id number] Cosigned by: [id number] Admin: 08/21/21 02:50 Dose: 0.04 unit/min, 12.1 mls/hr Documented by: [id number] Cosigned by: [id number] Infusion: 08/21/21 01:09 Dose: 0.04 unit/min, 12.1 mls/hr Documented by: [id number] Cosigned by: [id number] Infusion: 08/20/21 19:16 Dose: 0.04 unit/min, 12.1 mls/hr Documented by: [id number] Admin: 08/20/21 16:48 Dose: 0.04 unit/min, 12.1 mls/hr Documented by: [id number] Cosigned by: [id number] Infusion: 08/20/21 16:24 Dose: 0.04 unit/min, 12.1 mls/hr Documented by: [id number] Cosigned by: [id number] Admin: 08/20/21 08:03 Dose: 0.04 unit/min, 12.1 mls/hr Documented by: [id number] Cosigned by: [id number] Infusion: 08/20/21 08:03 Dose: 0.04 unit/min, 12.1 mls/hr Documented by: [id number] Cosigned by: [id number] Admin: 08/20/21 01:40 Dose: 0.04 unit/min, 12.1 mls/hr Documented by: [id number] Cosigned by: [id number] Fentanyl Citrate (Fentanyl Citrate) 2,500 mcg in 250 mls @ 0 mls/hr IV .Q0M [facility]; Protocol Stop: 09/03/21 01:29 Last Titration: 08/21/21 09:44 Dose: 0 mcg/hr, 0 mls/hr Documented by: [id number] Cosigned by: [id number] Titration: 08/21/21 09:15 Dose: 0 mcg/hr, 0 mls/hr Documented by: [id number] Cosigned by: [id number] Titration: 08/21/21 07:24 Dose: 75 mcg/hr, 7.5 mls/hr Documented by: [id number] Cosigned by: [id number] Titration: 08/21/21 00:30 Dose: 75 mcg/hr, 7.5 mls/hr Documented by: [id number] Cosigned by: [id number] Titration: 08/20/21 19:16 Dose: 50 mcg/hr, 5 mls/hr Documented by: [id number] Cosigned by: [id number] Titration: 08/20/21 02:18 Dose: 50 mcg/hr, 5 mls/hr Documented by: [id number] Cosigned by: [id number] Admin: 08/20/21 01:45 Dose: 25 mcg/hr, 2.5 mls/hr Documented by: [id number] Cosigned by: [id number] Piperacillin Sod/Tazobactam (Sod 4.5 gm/ Dextrose) 120 mls @ 30 mls/hr IV Q8H [facility]; Protocol Stop: 08/22/21 03:59 Last Infusion: 08/20/21 08:51 Dose: 0 mls/hr Documented by: [id number] Infusion: 08/20/21 08:50 Dose: 0 mls/hr Documented by: [id number] Admin: 08/20/21 05:22 Dose: 30 mls/hr Documented by: [id number] Linezolid (Zyvox) 600 mg in 300 mls @ 200 mls/hr IV Q12H [facility]; Protocol Stop: 08/22/21 02:29 Last Infusion: 08/20/21 08:49 Dose: 0 mls/hr Documented by: [id number] Admin: 08/20/21 02:41 Dose: 200 mls/hr Documented by: [id number] Parenteral Electrolytes (Normosol-R) 1,000 mls @ 125 mls/hr IV .Q8H [facility] Stop: 09/19/21 04:59 Last Infusion: 08/21/21 08:20 Dose: 0 mls/hr Documented by: [id number] Admin: 08/21/21 06:30 Dose: 125 mls/hr Documented by: [id number] Infusion: 08/21/21 06:30 Dose: 125 mls/hr Documented by: [id number] Admin: 08/20/21 22:41 Dose: 125 mls/hr Documented by: [id number] Infusion: 08/20/21 22:41 Dose: 125 mls/hr Documented by: [id number] Admin: 08/20/21 15:04 Dose: 125 mls/hr Documented by: [id number] Infusion: 08/20/21 13:23 Dose: 125 mls/hr Documented by: [id number] Admin: 08/20/21 05:23 Dose: 125 mls/hr Documented by: [id number] Magnesium Sulfate/Dextrose (Magnesium Sulfate / D5w) 1 gm in 100 mls @ 50 mls/hr IV Q2H [facility] Stop: 08/20/21 12:34 Last Infusion: 08/20/21 17:42 Dose: 0 mls/hr Documented by: [id number] Admin: 08/20/21 10:48 Dose: 50 mls/hr Documented by: [id number] Infusion: 08/20/21 10:30 Dose: 50 mls/hr Documented by: [id number] Admin: 08/20/21 09:54 Dose: Not Given Documented by: [id number] Admin: 08/20/21 08:30 Dose: 50 mls/hr Documented by: [id number] Potassium Phosphate 30 mmol/ (Sodium Chloride) 510 mls @ 100 mls/hr IV ONE ONE Stop: 08/20/21 12:35 Last Infusion: 08/20/21 17:42 Dose: 0 mls/hr Documented by: [id number] Admin: 08/20/21 08:31 Dose: 100 mls/hr Documented by: [id number] Meropenem 500 mg/ Syringe 10 mls @ 2 mls/min IV Q6H [facility]; Protocol Stop: 09/03/21 07:59 Last Admin: 08/22/21 08:01 Dose: 2 mls/min Documented by: [id number] Admin: 08/22/21 01:46 Dose: 2 mls/min Documented by: [id number] Admin: 08/21/21 21:46 Dose: 2 mls/min Documented by: [id number] Admin: 08/21/21 14:53 Dose: 2 mls/min Documented by: [id number] Admin: 08/21/21 08:22 Dose: 2 mls/min Documented by: [id number] Admin: 08/21/21 01:22 Dose: 2 mls/min Documented by: [id number] Admin: 08/20/21 20:10 Dose: 2 mls/min Documented by: [id number] Admin: 08/20/21 14:00 Dose: 2 mls/min Documented by: [id number] Admin: 08/20/21 08:31 Dose: 2 mls/min Documented by: [id number] Daptomycin 425 mg/ Syringe 8.5 mls @ 4.25 mls/min IV DAILY@1200 [facility]; Protocol Stop: 10/01/21 11:59 Last Admin: 08/21/21 11:18 Dose: 4.25 mls/min Documented by: [id number] Admin: 08/20/21 11:42 Dose: 4.25 mls/min Documented by: [id number] Potassium Chloride (K Edgard / Wtr) 10 meq in 100 mls @ 100 mls/hr IV Q1H [facility]; Protocol Stop: 08/21/21 11:59 Last Infusion: 08/21/21 11:46 Dose: 0 mls/hr Documented by: [id number] Admin: 08/21/21 10:45 Dose: 100 mls/hr Documented by: [id number] Infusion: 08/21/21 10:44 Dose: 0 mls/hr Documented by: [id number] Admin: 08/21/21 09:36 Dose: 100 mls/hr Documented by: [id number] Infusion: 08/21/21 09:32 Dose: 100 mls/hr Documented by: [id number] Admin: 08/21/21 08:32 Dose: 100 mls/hr Documented by: [id number] Insulin Aspart (Insulin Aspart Per Unit) 0 units SC Q6 [facility]; Protocol Stop: 09/21/21 05:59 Last Admin: 08/22/21 06:22 Dose: Not Given Documented by: [id number] Miscellaneous (Rapid Sequence Induction Bag) Confirm Administered Dose 1 ea .ROUTE .STK-MED ONE Stop: 08/19/21 22:46 Last Admin: 08/19/21 23:42 Dose: Not Given Documented by: [id number] James (Stat Iv Infusion Titration Per Protocol) 1 ea N/A NOW STA Stop: 08/19/21 22:55 Last Admin: 08/19/21 23:42 Dose: Not Given Documented by: [id number] James (Stat Iv Infusion Titration Per Protocol) 1 ea N/A NOW STA Stop: 08/19/21 23:34 Last Admin: 08/19/21 23:42 Dose: Not Given Documented by: [id number] Potassium Chloride (Potassium Chloride 20 Meq/15 Ml Udc) 40 meq PO NOW STA Stop: 08/20/21 06:36 Last Admin: 08/20/21 08:31 Dose: 40 meq Documented by: [id number] Propofol (Propofol Iv Emulsion 10 Mg/Ml 100 Ml Vial) Confirm Administered Dose 1,000 mg IV .STK-MED ONE Stop: 08/19/21 23:03 Last Admin: 08/19/21 23:42 Dose: Not Given Documented by: [id number] Sennosides (Sennosides 8.8 Mg/5 Ml Udc) 8.8 mg PO DAILY [facility] Stop: 09/19/21 11:59 Last Admin: 08/22/21 08:01 Dose: 8.8 mg Documented by: [id number] Admin: 08/21/21 08:23 Dose: 8.8 mg Documented by: [id number] Admin: 08/20/21 11:43 Dose: 8.8 mg Documented by: [id number] Sodium Bicarbonate (Sodium Bicarb 8.4% Inj 50 Meq/50 Ml Syr) Confirm Administered Dose 150 meq IV .STK-MED ONE Stop: 08/20/21 00:37 Last Admin: 08/20/21 00:40 Dose: 100 meq Documented by: [id number] Discharge Plan Visit Data Chief Complaint: Fever Stated Complaint: Illness ED Provider: Amish Novoa Discharge Problem: Septic shock, Respiratory failure, Lactic acidosis, Acute urinary retention, Acute UTI, Complication, blocked Medina catheter Patient Disposition: Admitted As Inpatient Discharge Instructions Interventions: ED Discharge Assessment Last Done: 08/20/21 01:15 Discharge Problem: Respiratory failure Qualifiers: Chronicity: acute Respiratory failure complication: hypoxia Qualified Code(s): J96.01 - Acute respiratory failure with hypoxia Complication, blocked Medina catheter Qualifiers: Encounter type: initial encounter Qualified Code(s): T83.091A - Other mechanical complication of indwelling urethral catheter, initial encounter
[2021-08-19 22:34] LABS: Hematocrit (blood only) 35.6 % (42-52); Hemoglobin 11.5 g/dL (14.0-18.0); Lymphocytes # (auto) 0.12 K/uL (1.2-3.4); Lymphocytes % (auto) 4.2 %; Mean Corpuscular Hgb Conc 32.3 g/dL (32-36); Mean Corpuscular Volume 105.3 fL (80-100); Mean Platelet Volume 10.6 fL (7.4-10.4); Monocytes # (auto) 0.05 K/uL (0.11-0.59); Monocytes % (auto) 1.7 %; Neutrophils % (auto) 94.1 %; Nucleated RBC # (auto) 0.02 K/uL (0-0); Nucleated RBC % (auto) 0.7 %; Platelet Count 152 K/uL (130-400); RDW Coefficient of Variation 15.9 % (11.5-14.5); RDW Standard Deviation 60.4 fL (36.4-46.3); Red Blood Count 3.38 M/uL (4.7-6.1); White Blood Count 2.87 K/uL (4.8-10.8)
[2021-08-19] MEDS ORDERED: PIPERACILL/TAZOBAC CONSULT ACTIVE PRN (22:45)
[2021-08-19] MEDS ORDERED: RAPID SEQUENCE INDUCTION BAG ONE (22:45)
[2021-08-19] MEDS ORDERED: PIPERACILLIN/TAZOBACTAM 4.5 GM/120 ML BAG IV ONE (22:45)
[2021-08-19 22:46] LABS: Prothrombin Time 10.3 Seconds (9.0-12.0)
[2021-08-19] MEDS ORDERED: STAT IV Infusion **Titration per Protocol STA ×2 (22:54→23:33)
[2021-08-19] MEDS ORDERED: PROPOFOL BOLUS FROM BAG IV PRN (22:54)
[2021-08-19] MEDS ORDERED: ACETAMINOPHEN 1,000 MG/100 ML VIAL IV STA (22:54)
[2021-08-19 22:56] LABS: Alanine Aminotransferase 15 U/L (7-52); Albumin Level 3.6 gm/dl (3.4-5.0); Alkaline Phosphatase 80 U/L (34-104); Anion Gap 14 (3-11); Aspartate Aminotransferase 15 U/L (13-39); BUN Creatinine Ratio 15.5 (10-20); Bilirubin Direct 0.3 mg/dl (0-0.2); Bilirubin,Total 0.8 mg/dl (0.2-1.0); Blood Urea Nitrogen 31 mg/dl (6-23); Calcium 8.3 mg/dl (8.5-10.1); Carbon Dioxide 18 mmol/L (21-32); Chloride 109 mmol/L (98-107); Est GFR (African American) 39.4 ml/min; Glucose 99 mg/dl (70-99(Fasting)); Lipase 11 U/L (11-82); Magnesium 1.7 mg/dl (1.7-2.4); Potassium 3.7 mmol/L (3.5-5.1); Sodium 141 mmol/L (136-145); Total Protein 6.6 gm/dl (6.0-8.3); Troponin I 0.04 ng/ml (0-0.04)
[2021-08-19] MEDS ORDERED: propofoL 1,000 MG/100 ML VIAL IV SCH ×2 (23:00→23:04)
[2021-08-19] MEDS ORDERED: PROPOFOL IV EMULSION 10 MG/ML 100 ML VIAL IV ONE (23:02)
[2021-08-19] MEDS ORDERED: PATIENT'S HEIGHT AND/OR WEIGHT NEEDED SCH (23:15)
[2021-08-19 23:35] LABS: Base Excess VBG -10.2 mEq/L; HCO3 VBG 19 mmol/L; Oxygen Saturation VBG 72.2 %; PCO2 VBG 53 mmHg (38-50); PO2 VBG 48 mmHg; pH VBG 7.17 (7.36-7.41)
[2021-08-19] MEDS: NOREPINEPHRINE/D5W 8 MG/508 ML BAG IV SCH (23:40)
[2021-08-19 23:56] LABS: Appearance Urine Cloudy (Clear); Bacteria Urine Automated 2+ (Negative); Bilirubin Urine Negative (Negative); Blood Urine 3+ (Negative); Cast Urine Automated 0 /lpf (0-5); Color Urine Yellow; Epithelial Cell Urine Auto 0-5 /lpf (0-5); Glucose Urine UA Negative (Negative); Ketones Urine Negative (Negative); Leukocyte Esterase Urine 3+ (Negative); Nitrite Urine Negative (Negative); Protein Urine 1+ (Negative); RBC Urine Automated >30 /hpf (0-4); Specific Gravity Urine 1.014 (1.000-1.030); Urobilinogen Urine Negative (Negative); WBC Urine Automated >30 /hpf (0-5)
[2021-08-20] MEDS ORDERED: ICU PROTOCOL FOR HYPERGLYCEMIA PRN (00:05)
[2021-08-20] MEDS ORDERED: SODIUM BICARBONATE IV SCH ×2 (00:15→00:45)
[2021-08-20] MEDS ORDERED: SODIUM BICARB 8.4% INJ 50 MEQ/50 ML SYR IV ONE (00:36)
[2021-08-20] MEDS ORDERED: SODIUM CHLORIDE 0.9% IV SCH (00:45)
[2021-08-20 00:53] LABS: iSTAT Arterial Blood Gas HCO3 15 meg/L (19-24); iSTAT Arterial Blood Gas pCO2 30 mmHg (35-46); iSTAT Arterial Blood Gas pH 7.31 (7.35-7.45); iSTAT Arterial Blood Gas pO2 157 mmHg (80-95); iSTAT Carbon Dioxide 16 mmol/L (24-31); iSTAT Hematocrit 26 % (42-52); iSTAT Hemoglobin 8.8 g/dl (14.0-18.0); iSTAT Potassium 2.8 mmol/L (3.3-5.0); iSTAT Sodium 145 mmol/L (135-144)
--- NOTE | 2021-08-20 00:56 | History & Physical Report ---
Date of Service August 20, 2021 Assessment & Plan (1) Thoracic abscess: Plan: This is a 66-year-old gentleman with a history of left hip infection from MRSA (recently s/p IV vancomycin treatment), MRSA bacteremia, previous thoracic abscess, neurogenic bladder, hypertension, hyperlipidemia, seizure disorder, and paranoid schizophrenia who presented to [facility] by ambulance for evaluation of altered mental status and hypoxia, subsequently found to be hypotensive, hypoxic, and obtunded on arrival in the setting of recent colonoscopy and clogged urinary catheter, requiring emergent intubation, initiation of mechanical ventilation, and initiation of pressors -- all concerning for septic shock. Septic Shock Patient presented tachycardic, hypotensive, febrile w/ elevated pro-Richard (>20) and lactate (5) Source at this time is somewhat unclear; per history, patient has history of recently treated septic hip osteoarthritis (wound culture grew MRSA), as well as previous discitis/thoracic abscess, and chronically indwelling Gardner that was noted to be clogged upon arrival here --Based on preliminary read of CT abdomen pelvis by stat rad, concern that there may be redevelopment of septic joint within the left hip --Admission UA did demonstrate significant leuk esterase, white blood cells and RBCs --H/O discitis/thoracic abscess involving T10-T11 (see below) --No evidence of perforation on CT-A/P preliminary read (in setting of recent colonoscopy) Await urine cultures and blood cultures (has history of MRSA and ESBL UTI) Consider repeat TTE pending blood culture results; no e/o vegitations on prior TTE in 03/2021 during MRSA bacteremia Currently requiring vasopressor support in ICU to maintain MAP over 65 Continue IV fluid support, monitor urine output Continue broad-spectrum antibiotic coverage with Zosyn and Zyvox Ventilator Dependent Respiratory Failure On arrival, patient was noted to be hypoxic to the 60% range; he later became obtunded and did require emergent intubation for airway protection. He was initially acidotic and hypercapnic. No evidence of obvious consolidation or infectious process on chest CT/chest x- ray Per ICU: Currently requiring minimal vent settings, wean as able Follow-up ABG and chest x-ray Acute Kidney Injury -- Cr baseline ~1 On arrival, patient noted to have BUN 31/Cr 2 Etiology is likely multifactorial in the setting of hypotension/septic shock, clogged Gardner on arrival per ED provider -- which was since changed and is now draining urine Continue fluid resuscitation/pressors per ICU Monitor BMP and urine output, goal >0.5cc/kg/hr L Hip Effusion and Degeneration With previous history of MRSA septic arthritis within the left hip (likely from translocation of MRSA bacteremia); was previously deemed not to be surgical candidate. Recently finished IV vancomycin (per ED team - approx. 1 week ago?) CT abdomen/pelvis demonstrated: "progressive destruction of the left femoral acetabular joint with resorptive changes of the femoral head and acetabulum joint. 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 He was seen by Dr. Gibbs in consultation while hospitalized on 03/17, who did recommend referral to tertiary care facility. Interval history is unknown to me at time of admission Chest CT (STAT Rad) demonstrated significant implant irregularity within vertebral body at [id number], which is new from the previous exam Continue broad-spectrum antibiotics Consider consultation with spine surgery if indicated as work-up continues Leukopenia Patient noted to have leukopenia to 2.87 upon arrival; etiology of this is somewhat unclear at this time. May represent process secondary to ongoing sepsis and marrow progression Continue to monitor, continue broad-spectrum antibiotics If continues, may want to consider peripheral blood smear Neurogenic Bladder Follows with [facility] - suspected to be secondary to prior spinal infection Per outpatient notes, SP tube is considered in the future Does require chronic Gardner catheterchanged upon arrival in the ED Seizure Disorder Patient with reported history of seizures, taking daily carbamazepine Carbamazepine currently on hold while n.p.o./intubated; if OGT inserted, may want to consider resumption when appropriate Paranoid schizophrenia/depression/mood disorder Hold home medications while n.p.o. Hypothyroidism Hold home levothyroxine while n.p.o. Hypertension Hold home antihypertensives in setting of septic shock/hypotension (metoprolol, Lasix) Code: Documentation referencing advanced directive indicates patient is FULL CODE Dispo: ICU Diet: N.p.o. PPX: SCDs -- consider pharmacologic in AM (2) Septic shock: (3) OCTAVIO (acute kidney injury): (4) Osteomyelitis: (5) Pleural effusion: (6) Respiratory failure: (7) Lactic acidosis: (8) Acute urinary retention: (9) Acute UTI: (10) Complication, blocked Gardner catheter: (11) UTI (urinary tract infection): (12) Urinary retention: (13) Neurogenic bladder: (14) Obesity: (15) OCTAVIO (acute kidney injury): (16) Hyperlipidemia: (17) Hypertension: (18) Hypothyroidism: (19) Osteoarthritis of hip: (20) Seizure disorder: (21) Paranoid schizophrenia, chronic condition: History of Present Illness Primary Care Provider: [facility] This is a 66-year-old gentleman with a history of left hip infection from MRSA, MRSA bacteremia, previous thoracic abscess, neurogenic bladder, hypertension, hyperlipidemia, seizure disorder, and paranoid schizophrenia who presented to [facility] by ambulance for evaluation of altered mental status and hypoxia. Patient was reportedly at dinner at his nursing facility ([facility]) when he became progressively more lethargic. He was shortly thereafter noted to be febrile and hypoxic to 66%. He was transported to [facility] with rebreather, where he was found to be febrile to 39.9 with BP 70/40 and HR of 130, SpO2 60%. VBG demonstrated: 7.17 / pCO2 53 / HCO3 19. OCTAVIO appreciated with BUN 31 / Cr 2.00. Lactate elevated at 5.5. Procal elevated to 21. UA demonstrated 3+ blood, LE, >30 WBCs, >30 RBCs. He became progressively more obtunded and required emergent intubation and initiation of pressors. Zosyn was given. Patient was sent for CT, and emergency physician spoke with on-call groutman. Of note, patient had a colonoscopy performed on 08/15/2021 for evaluation of hematochezia. Diverticulosis was noted. Further, was noted to have recent dislocation of the left hip with associated osteomyelitis. Further, patient has history of discitis/thoracic abscess in 07/2020. He completed IV vancomycin last week for this. CT of the head demonstrated findings potentially consistent with sinusitis, otherwise no intracranial abnormalities. CT of the abdomen and pelvis demonstrated air-filled colon, large hiatal hernia, "progressive destruction of the left femoral acetabular joint with resorptive changes of the femoral head and acetabulum joint. There is a large hip effusion with numerous loose ossified bodies for which septic arthritis is possible." Chest CT demonstrated significant implant irregularity within vertebral body at [id number], which is new from the previous exam. Allergies Allergy/AdvReac Type Severity Reaction Status Date / Time loxapine AdvReac Mild restless Verified 08/19/21 23:26 and nervous morphine AdvReac Mild nausea/vomi Verified 08/19/21 23:26 ting Home Medications Medication Instructions Recorded Confirmed Type venlafaxine 150 mg 150 mg PO QAM 01/13/19 08/19/21 History capsule,extended release 24 hr folic acid 1 mg tablet 1 mg PO QAM 07/21/20 08/19/21 History carbamazepine 200 mg tablet 600 mg PO Q12 07/31/20 08/19/21 History (Tegretol) tamsulosin 0.4 mg capsule 0.4 mg PO HS #0 cap 08/23/20 08/19/21 Rx tramadol 50 mg tablet 50 mg PO TID PRN 10/23/20 08/19/21 History aripiprazole 5 mg tablet (Abilify) 5 mg PO QAM 03/14/21 08/19/21 History ascorbic acid (vitamin C) 500 mg 500 mg PO QAM 03/14/21 08/19/21 History capsule atorvastatin 10 mg tablet 10 mg PO HS 03/14/21 08/19/21 History baclofen 10 mg tablet 20 mg PO QAM 03/14/21 08/19/21 History cholecalciferol (vitamin D3) 125 125 mcg PO QAM 03/14/21 08/19/21 History mcg (5,000 unit) tablet (Vitamin D3) cyanocobalamin (vitamin B-12) 1,000 mcg PO QAM 03/14/21 08/19/21 History 1,000 mcg tablet (Vitamin B-12) ferrous sulfate 325 mg (65 mg 325 mg PO DAILY 03/14/21 08/19/21 History iron) tablet furosemide 40 mg tablet 40 mg PO DAILY 03/14/21 08/19/21 History gabapentin 300 mg capsule 300 mg PO Q8 03/14/21 08/19/21 History ipratropium 20 mcg-albuterol 100 1 puff INHALATION QID 03/14/21 08/19/21 History mcg/actuation mist for inhalation (Combivent Respimat) lidocaine 4 % topical patch 1 patch TOPICAL DAILY PRN 03/14/21 08/19/21 History metoprolol tartrate 50 mg tablet 50 mg PO BID 03/14/21 08/19/21 History potassium chloride 20 mEq 40 meq PO BID 03/14/21 08/19/21 History tablet,extended release(part/cryst) venlafaxine 75 mg capsule,extended 75 mg PO QAM 03/14/21 08/19/21 History release 24 hr acetaminophen 325 mg tablet 650 mg PO Q4H PRN #30 tab 03/18/21 08/19/21 Rx levothyroxine 25 mcg tablet 25 mcg PO DAILY 06/28/21 08/19/21 History oxycodone 5 mg capsule 5 mg PO Q8H PRN 06/28/21 08/19/21 History timolol 0.5 % eye drops 1 drp OPHTHALMIC (EYE) DAILY 08/05/21 08/19/21 History aspirin 81 mg tablet,delayed 81 mg PO DAILY 08/13/21 08/19/21 History release (Aspirin Low Dose) bisacodyl 10 mg rectal suppository 10 mg MT DAILY PRN 08/13/21 08/19/21 History (Dulcolax (bisacodyl)) cyanocobalamin (vitamin B-12) 1,000 mcg SUBCUT MONTHLY 08/13/21 08/19/21 History 1,000 mcg/mL injection kit polyethylene glycol 3350 17 17 g PO DAILY 08/13/21 08/19/21 History gram/dose oral powder (Miralax) simethicone 80 mg tablet 80 mg PO Q6 PRN 08/13/21 08/19/21 History sodium phosphates 19 gram-7 118 ml MT DAILY PRN 08/13/21 08/19/21 History gram/118 mL enema (Enema) ondansetron HCl 4 mg tablet 4 mg PO Q6H PRN 08/19/21 08/19/21 History Past Med/Surg History Medical History (Updated 08/20/21 @ 10:59 by Anai Caal MD) OCTAVIO (acute kidney injury) Anemia Anxiety Depression Discitis GERD (gastroesophageal reflux disease) Glaucoma [facility]27/2021 History of MRSA infection Hyperlipidemia Hypertension Hypothyroidism Indwelling Gardner catheter present Morbid obesity due to excess calories Neuromuscular dysfunction of bladder Obesity Osteoarthritis of hip Osteomyelitis Paranoid schizophrenia, chronic condition PICC (peripherally inserted central catheter) in place Pleural effusion Seizure disorder Severe muscle deconditioning Shortness of breath Thoracic abscess Vitamin D deficiency Surgical History History of appendectomy History of cholecystectomy History of colonoscopy History of umbilical hernia repair History of wisdom tooth extraction Family History Father Family history of diabetes mellitus Mother Family history of diabetes mellitus Brother Family history of diabetes mellitus Other No family history of adverse response to anesthesia Social History Smoking Status: Unknown if ever smoked Second Hand Exposure: No; Preferred Language: Yakut Communication Ability: On Vent 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 Trachea midline. Cardiac: Normal rate, regular rhythm, S1 and S2 are present without murmurs rubs or gallops. Pulmonary: Endotracheal tubes in place. Scattered rhonchi throughout both lung grimm. Abdomen: Air bubbling can be appreciated in epigastric region. Abdomen is moderately distended. There is no response to pain. Extremities: No significant peripheral edema in the lower extremities. Capillary refill approx. 3 seconds in UEs. Neuro: Nonresponsive to pain, but with ongoing sedation. No evidence of focalized spasticity in the upper or lower extremities. Reflexes diminished throughout, 1+ globally. Results & Data Results & Data ([facility]) Vital Signs (Past 12 Hours) Vital Signs Temp Pulse Resp BP Pulse Ox 08/20/21 00:10 96 H 20 86/55 L 96 08/20/21 00:05 98 H 22 87/54 L 95 08/20/21 00:00 98 H 22 98/59 L 96 08/19/21 23:56 98 H 22 65/52 L 96 08/19/21 23:55 98 H 24 58/46 L 98 08/19/21 23:53 97 H 22 74/48 L 96 08/19/21 23:51 98 H 22 72/54 L 96 08/19/21 23:45 97 H 22 93/44 L 96 08/19/21 23:40 98 H 22 81/50 L 95 08/19/21 23:35 101 H 20 76/46 L 08/19/21 23:32 103 H 20 80/50 L 95 08/19/21 23:30 105 H 20 78/62 L 97 08/19/21 23:25 109 H 20 88/61 L 95 08/19/21 23:20 106 H 24 91/55 L 95 08/19/21 23:15 109 H 18 87/63 L 96 08/19/21 22:30 20 99 08/19/21 21:55 39.9 C H 115 H 20 77/44 L 98 Code Status & VTE Plan VTE Prophylaxis Plan VTE Prophylaxis will be ordered: Yes Critical Care Time 50 minutes Supervising Physician Co-Signing Physician Notes Attending addendum: I have physically seen this patient, have supervised the medical residents activities, and agree with the H&P unless as otherwise noted. Assessment and Plan: Septic shock- Source of infection unclear at this time, but may be related to reinfection of previously treated septic hip osteoarthritis Has required 4 L of normal saline fluid boluses and Levophed drip while in the ED Intubated for airway protection Started on a bicarb drip CT of head/chest/abdomen and pelvis ordered Follow all cultures Broad-spectrum IV antibiotics as noted serial ABGs, CBCD, chemistry profile, magnesium and phosphorus levels Consult ICU team Remaining orders and notations as noted Resident Activity Tracking Resident Involvement: Resident Care Provided Care Provided: Adult Hospital Medicine (1) Respiratory failure Chronicity: acute Respiratory failure complication: hypoxia Qualified Code(s): J96.01 - Acute respiratory failure with hypoxia (2) Complication, blocked Gardner catheter Encounter type: initial encounter Qualified Code(s): T83.091A - Other mechanical complication of indwelling urethral catheter, initial encounter
[2021-08-20] MEDS ORDERED: fentaNYL citrate 2,500 MCG/250 ML BAG IV SCH (01:30)
[2021-08-20] MEDS ORDERED: STAT IV Infusion **Titration per Protocol STA (01:30)
[2021-08-20] MEDS: VASOPRESSIN 20 UNITS in 0.9 % SODIUM CHLORIDE 100 ML IV SCH ×3 (01:40→16:48)
[2021-08-20] MEDS ORDERED: LINEZOLID 600 MG/300 ML D5W IV SCH (01:48)
[2021-08-20] MEDS ORDERED: PIPERACILL/TAZOBAC CONSULT ACTIVE PRN (01:48)
[2021-08-20] MEDS ORDERED: LINEZOLID CONSULT ACTIVE PRN (01:48)
--- NOTE | 2021-08-20 01:54 | Critical Care Consultation ---
Date of Consultation August 20, 2021 Assessment & Plan (1) Septic shock: Reason Critically Ill: 66-year-old male presents to the ICU in septic shock with unknown source at this time, requiring mechanical ventilation and vasopressor support. Neuro - Sedation: Fentanyl drip. Propofol discontinued due to severe hypotension requiring vasopressors -Hold antipsychotics for now Cardiac - Septic shockpatient profoundly hypotensive requiring multiple vasopressors. - Elevated lactate and pro Richard and febrile, high suspicion for sepsis. See ID management below -Echo 03/20/21: Normal LV function with EF 55 to 60%, no valvular vegetation. No valvular disease -Troponin negative -Random cortisol pending -Maintain maps greater than 65. Wean vasopressors as tolerated Respiratory - Hypoxic respiratory failurepatient was on 100% nonrebreather in the ED and was ultimately intubated due to unresponsiveness. He is on minimal vent settings at this time with PEEP of 5 and FiO2 30%. -Unsure if patient may have aspirated while obtunded. Also could be underlying pneumonia. Continue with broad-spectrum antibiotics -Wean vent as tolerated. Follow-up ABG and chest x-ray in a.m. -Continuous monitoring pulse ox GI - N.p.o., NG tube to low intermittent wall suction CT abdomen pelvis pending Patient did undergo a recent colonoscopy and did reveal diverticulosis and dilated bowel which was thought to be due to chronic constipation. RENAL/LYTES - AKIcreatinine 2.0 with baseline 0.8 -Possible ATN secondary to hypotension versus postobstructive given block Gardner catheter -Hold Lasix. Avoid nephrotoxic agents and renally adjust medications -Maintain maps greater than 65 -Continue with IV fluid resuscitation -Monitor routine BMPs. Replete electrolytes as indicated Lactic acidosisinitial lactate 5.5 likely secondary to sepsis. Repeat pending -ABG pH was 7.31 prior to bicarb push in the ED. We will hold off on further bicarb for now and monitor acidosis - Patient's chronic Gardner was obstructed on arrival to the ED and patient produced 1.5 L urine on exchange. Unsure if this is possible source of sepsis. Urine culture pending. Strict I's and O's ENDO - No history of diabetes. ICU hyperglycemic protocol Hypothyroidcontinue Synthroid HEME - LeukopeniaWBC 2.87. Unsure if this is secondary to bone marrow suppression from chronic illness versus sepsis. Monitor with routine CBCs for now -H&H stable, monitor ID - Sepsispatient with multiple potential sources and recent thoracic abscess, loculated pleural effusion, and septic hip with osteomyelitis. Patient also has chronic Gardner Patient febrile and hypotensive this with elevated lactate and procalcitonin -CT chest and abdomen and pelvis pending. Follow-up read -Blood cultures and urine culture pending -Patient does have history of MRSA and E. coli ESBL UTI -Nasal MRSA pending -Continue broad-spectrum antibiotics with Zosyn and Zyvox for now LINES/IV ACCESS - PICC line, peripheral IVs, NG tube DVT PROPHYLAXIS - SCDs I have personally spent 60 minutes of critical care time in the direct management of this patient. This is a life/limb threatening event. This includes time spent evaluating patient, direct bedside care, chart review, placing orders, interpretation of diagnostic studies, discussion with consultants, patient, and family members, as well as other required patient management activities. This time is exclusive of all separately billable procedures, and teaching time and separate from and in addition to any other critical care service time. Thank you for allowing us to participate in the care of this patient. Please refer to my attending physician's documentation for any further recommendations. (2) Respiratory failure: (3) Lactic acidosis: (4) Acute urinary retention: (5) Acute UTI: (6) Complication, blocked Gardner catheter: (7) HTN (hypertension): (8) HLD (hyperlipidemia): (9) OCTAVIO (acute kidney injury): (10) Thoracic abscess: (11) Seizure disorder: (12) Paranoid schizophrenia, chronic condition: History of Present Illness Attending Physician: Andriy Otoole MD History of Present Illness Patient is a 66-year-old male with extensive past medical history including recent admission for septic hip infection for MRSA with osteomyelitis (completed IV vancomycin) thoracic abscess, HTN, HLD, seizure disorder, paranoid schizophrenia, and neurogenic bladder requiring long-term Gardner. He recently underwent colonoscopy on 08/15 for hematochezia and was noted to have diverticulosis. Patient is a resident of [facility] and was noted to be altered mental status, febrile, and hypoxic. EMS was called and he was placed on nonrebreather. On arrival to the emergency department he was found to be febr ile, hypotensive, and SPO2 60%. Patient was noted to have an OCTAVIO and elevated lactate of 5.5. Pro-Richard elevated 21. When Gardner catheter was exchanged he produced 1.5 L of urine. Patient became increasingly obtunded and required intubation. He was started on broad-spectrum antibiotics and cultures pending. Patient was taken for CT of head, chest, and abdomen and pelvis in route to the ICU and report pending. He is currently on vasopressor support and critically ill, in septic shock. Patient remained in ICU further management this time. Allergies Allergy/AdvReac Type Severity Reaction Status Date / Time loxapine AdvReac Mild restless Verified 08/19/21 23:26 and nervous morphine AdvReac Mild nausea/vomi Verified 08/19/21 23:26 ting Home Medications Medication Instructions Recorded Confirmed Type venlafaxine 150 mg 150 mg PO QAM 01/13/19 08/19/21 History capsule,extended release 24 hr folic acid 1 mg tablet 1 mg PO QAM 07/21/20 08/19/21 History carbamazepine 200 mg tablet 600 mg PO Q12 07/31/20 08/19/21 History (Tegretol) tamsulosin 0.4 mg capsule 0.4 mg PO HS #0 cap 08/23/20 08/19/21 Rx tramadol 50 mg tablet 50 mg PO TID PRN 10/23/20 08/19/21 History aripiprazole 5 mg tablet (Abilify) 5 mg PO QAM 03/14/21 08/19/21 History ascorbic acid (vitamin C) 500 mg 500 mg PO QAM 03/14/21 08/19/21 History capsule atorvastatin 10 mg tablet 10 mg PO HS 03/14/21 08/19/21 History baclofen 10 mg tablet 20 mg PO QAM 03/14/21 08/19/21 History cholecalciferol (vitamin D3) 125 125 mcg PO QAM 03/14/21 08/19/21 History mcg (5,000 unit) tablet (Vitamin D3) cyanocobalamin (vitamin B-12) 1,000 mcg PO QAM 03/14/21 08/19/21 History 1,000 mcg tablet (Vitamin B-12) ferrous sulfate 325 mg (65 mg 325 mg PO DAILY 03/14/21 08/19/21 History iron) tablet furosemide 40 mg tablet 40 mg PO DAILY 03/14/21 08/19/21 History gabapentin 300 mg capsule 300 mg PO Q8 03/14/21 08/19/21 History ipratropium 20 mcg-albuterol 100 1 puff INHALATION QID 03/14/21 08/19/21 History mcg/actuation mist for inhalation (Combivent Respimat) lidocaine 4 % topical patch 1 patch TOPICAL DAILY PRN 03/14/21 08/19/21 History metoprolol tartrate 50 mg tablet 50 mg PO BID 03/14/21 08/19/21 History potassium chloride 20 mEq 40 meq PO BID 03/14/21 08/19/21 History tablet,extended release(part/cryst) venlafaxine 75 mg capsule,extended 75 mg PO QAM 03/14/21 08/19/21 History release 24 hr acetaminophen 325 mg tablet 650 mg PO Q4H PRN #30 tab 03/18/21 08/19/21 Rx levothyroxine 25 mcg tablet 25 mcg PO DAILY 06/28/21 08/19/21 History oxycodone 5 mg capsule 5 mg PO Q8H PRN 06/28/21 08/19/21 History timolol 0.5 % eye drops 1 drp OPHTHALMIC (EYE) DAILY 08/05/21 08/19/21 History aspirin 81 mg tablet,delayed 81 mg PO DAILY 08/13/21 08/19/21 History release (Aspirin Low Dose) bisacodyl 10 mg rectal suppository 10 mg NJ DAILY PRN 08/13/21 08/19/21 History (Dulcolax (bisacodyl)) cyanocobalamin (vitamin B-12) 1,000 mcg SUBCUT MONTHLY 08/13/21 08/19/21 History 1,000 mcg/mL injection kit polyethylene glycol 3350 17 17 g PO DAILY 08/13/21 08/19/21 History gram/dose oral powder (Miralax) simethicone 80 mg tablet 80 mg PO Q6 PRN 08/13/21 08/19/21 History sodium phosphates 19 gram-7 118 ml NJ DAILY PRN 08/13/21 08/19/21 History gram/118 mL enema (Enema) ondansetron HCl 4 mg tablet 4 mg PO Q6H PRN 08/19/21 08/19/21 History Patient History Medical History (Updated 08/20/21 @ 02:40 by Rudy B. Cohron, [employer]ER) OCTAVIO (acute kidney injury) Anemia Anxiety Depression Discitis GERD (gastroesophageal reflux disease) Glaucoma History of COVID-19 per [facility] records dated 02/27/2021 History of MRSA infection Hyperlipidemia Hypertension Hypothyroidism Indwelling Gardner catheter present Morbid obesity due to excess calories Neuromuscular dysfunction of bladder Obesity Osteoarthritis of hip Osteomyelitis Paranoid schizophrenia, chronic condition PICC (peripherally inserted central catheter) in place Pleural effusion Seizure disorder Severe muscle deconditioning Shortness of breath Thoracic abscess Vitamin D deficiency Surgical History History of appendectomy History of cholecystectomy History of colonoscopy History of umbilical hernia repair History of wisdom tooth extraction Family History Father Family history of diabetes mellitus Mother Family history of diabetes mellitus Brother Family history of diabetes mellitus Other No family history of adverse response to anesthesia Social History Smoking Status: Unknown if ever smoked Second Hand Exposure: No; Preferred Language: Congolese Communication Ability: Effective Biostatistics Professor Required: No Beliefs That Will Affect Care: None marital status: Single Current Living Situation: Senior Care How many Children do You have: 0 Assistive Devices Comment: unable to obtain-pt intubated Review of Systems Review of Systems: Unobtainable due to cognitive status and Unobtainable due to endotracheal tube Physical Exam Eyes: PERRL, conjunctivae normal, anicteric sclerae ENMT: external ear and nose normal, oropharynx normal Neck: trachea midline, no thyromegaly Respiratory: Rhonchi auscultated bilaterally, symmetrical chest wall movement. Cardiovascular: RRR, no murmur, no edema Heart Sounds: normal S1 and normal S2 Vessels: no JVD Extremities: normal capillary refill Gastrointestinal (Abdomen): Abdomen round, soft, hyperactive bowel sounds auscultated all 4 quadrants Musculoskeletal: Able to assess due to sedation Skin: no rashes, warm and dry Neurologic: Unable to assess due to sedation Psychiatric: Unable to assess due to sedation Genitourinary: Indwelling Gardner catheter present Results & Data Results & Data ([facility]) Vital Signs (Past 12 Hours) Vital Signs Temp Pulse Resp BP Pulse Ox 08/20/21 01:34 98 H 23 97 08/20/21 01:11 101 H 20 81/54 L 97 08/20/21 01:05 96 H 20 72/50 L 99 08/20/21 01:00 97 H 20 74/54 L 100 08/20/21 00:50 98 H 21 71/45 L 98 08/20/21 00:40 99 H 24 78/58 L 99 08/20/21 00:35 97 H 21 69/50 L 98 08/20/21 00:34 96 H 21 98 08/20/21 00:25 97 H 22 73/55 L 98 08/20/21 00:21 98 H 19 84/51 L 96 08/20/21 00:15 97 H 20 78/52 L 97 08/20/21 00:10 96 H 20 86/55 L 96 08/20/21 00:05 98 H 22 87/54 L 95 08/20/21 00:00 98 H 22 98/59 L 96 08/19/21 23:56 98 H 22 65/52 L 96 08/19/21 23:55 98 H 24 58/46 L 98 08/19/21 23:53 97 H 22 74/48 L 96 08/19/21 23:51 98 H 22 72/54 L 96 08/19/21 23:45 97 H 22 93/44 L 96 08/19/21 23:40 98 H 22 81/50 L 95 08/19/21 23:35 101 H 20 76/46 L 08/19/21 23:32 103 H 20 80/50 L 95 08/19/21 23:30 105 H 20 78/62 L 97 08/19/21 23:25 109 H 20 88/61 L 95 08/19/21 23:20 106 H 24 91/55 L 95 08/19/21 23:15 109 H 18 87/63 L 96 08/19/21 22:30 20 99 08/19/21 21:55 39.9 C H 115 H 20 77/44 L 98 Coding Level of Care Code Critical Care 1st 30-74 mins Diagnoses Septic shock A41.9; R65.21 Respiratory failure J96.01 Chronicity: acute Respiratory failure complication: hypoxia Lactic acidosis E87.2 Acute urinary retention R33.8 Acute UTI N39.0 Complication, blocked Gardner catheter T83.091A Encounter type: initial encounter HTN (hypertension) I10 HLD (hyperlipidemia) E78.5 OCTAVIO (acute kidney injury) N17.9 Thoracic abscess J86.9 Seizure disorder G40.909 Paranoid schizophrenia, chronic condition F20.0 (1) Respiratory failure Chronicity: acute Respiratory failure complication: hypoxia Qualified Code(s): J96.01 - Acute respiratory failure with hypoxia (2) Complication, blocked Gardner catheter Encounter type: initial encounter Qualified Code(s): T83.091A - Other mechanical complication of indwelling urethral catheter, initial encounter
[2021-08-20] MEDS ORDERED: LINEZOLID 600 MG/300 ML BAG IV SCH (02:30)
[2021-08-20] MEDS ORDERED: PIPERACILLIN/TAZOBACTAM 4.5 GM in DEXTROSE 5% 100 ML IV SCH (04:00)
[2021-08-20 04:04] LABS: iSTAT Allen Test Pass; iSTAT Art Bld Gas pCO2 Correct 37 mmHg (35-46); iSTAT Art Bld Gas pH Corrected 7.313 (7.35-7.45); iSTAT Arterial Blood Gas HCO3 19 meg/L (19-24); iSTAT Arterial Blood Gas pCO2 34 mmHg (35-46); iSTAT Arterial Blood Gas pH 7.34 (7.35-7.45); iSTAT Arterial Blood Gas pO2 100 mmHg (80-95); iSTAT Arterial Blood Gas pO2 C 113; iSTAT Carbon Dioxide 20 mmol/L (24-31); iSTAT Hematocrit 27 % (42-52); iSTAT Hemoglobin 9.2 g/dl (14.0-18.0); iSTAT Potassium 2.9 mmol/L (3.3-5.0); iSTAT Site R Radial; iSTAT Sodium 143 mmol/L (135-144)
[2021-08-20] MEDS: NOREPINEPHRINE/D5W 8 MG/508 ML BAG IV SCH ×7 (05:00→17:41)
[2021-08-20] MEDS: NORMOSOL-R 1,000 ML IV SCH ×3 (05:23→22:41)
[2021-08-20 05:54] LABS: Hematocrit (blood only) 36.2 % (42-52); Hemoglobin 11.7 g/dL (14.0-18.0); Mean Corpuscular Hemoglobin 34.3 pg (25-34); Mean Corpuscular Hgb Conc 32.3 g/dL (32-36); Mean Corpuscular Volume 106.2 fL (80-100); Mean Platelet Volume 10.9 fL (7.4-10.4); Platelet Count 150 K/uL (130-400); RDW Coefficient of Variation 16.4 % (11.5-14.5); RDW Standard Deviation 63.6 fL (36.4-46.3); Red Blood Count 3.41 M/uL (4.7-6.1); White Blood Count 16.41 K/uL (4.8-10.8)
[2021-08-20 06:23] LABS: BUN Creatinine Ratio 17.1 (10-20); Calcium 7.5 mg/dl (8.5-10.1); Creatinine Clr Calc Pharmacy 44.9 ml/min; Est GFR (African American) 39.7 ml/min; Est GFR (Non-African American) 34.2 ml/min; Magnesium 1.6 mg/dl (1.7-2.4); Phosphorus 1.8 mg/dl (2.5-4.9); Potassium 2.9 mmol/L (3.5-5.1)
[2021-08-20 06:35] LABS: ALC (manual) 0.15 K/uL (1.2-3.4); ANC (manual) 15.84 K/uL (1.4-6.5); Basophils # (manual) 0.15 K/uL (0-0.2); Basophils % (manual) 0.9 %; Lymphocytes # (manual) 0.15 K/uL (1.2-3.4); Lymphocytes % (manual) 0.9 %; Monocytes # (manual) 0.28 K/uL (0.11-0.59); Monocytes % (manual) 1.7 %; Neutrophils # (manual) 15.84 K/uL (1.4-6.5); Neutrophils % (manual) 96.5 %; Polychromasia 1+; Toxic Vacuolation 1+
[2021-08-20] MEDS ORDERED: POTASSIUM CHLORIDE 20 MEQ/15 ML UDC PO STA (06:35)
[2021-08-20] MEDS ORDERED: POTASSIUM PHOS 3 MMOL/1 ML INFUSION IV STA (06:35)
--- NOTE | 2021-08-20 06:46 | CT Scan Report ---
CT head/brain wo con CLINICAL HISTORY: 66 years-old Male with AMS. Acutely altered mental status TECHNIQUE: Multiple axial CT images of the head were obtained without contrast. A dose lowering tech nique was utilized adhering to the principles of ALARA. CT DOSE: 3119.81 mGy.cm COMPARISON: None. FINDINGS: No acute intracranial hemorrhage, midline shift, intracranial mass, hydrocephalus, territorial ischem ia or abnormal extra-axial collection. Age-related involutional changes with mild ex vacuo ventriculo megaly. Mild white matter hypodensities suggest chronic microvascular ischemic disease. Calcification s of the falx cerebri. The calvarium is intact. Hyperostosis frontalis interna. Mastoid air cells are clear. Right sphenoid sinus air-fluid level. Mild mucosal thickening of the paranasal sinuses with polypoid mucosal thicken ing of the right maxillary sinus. Unremarkable soft tissues and orbits. IMPRESSION: No acute intracranial abnormality. ACT 112: Negative or not required by law. The above report was generated using voice recognition software. It may contain grammatical, syntax o r spelling errors. Electronically signed by: Pedro Lind M.D. 08/20/2021 6:45 AM
--- NOTE | 2021-08-20 06:55 | XRay Report ---
XR pelvis 1-2V routine HISTORY: 66 years-old Male previous hip surgery chronic left hip pain COMPARISON: MRI left hip 03/16/2021, left hip radiographs 03/14/2021, CT abdomen pelvis 08/20/2021. TECHNIQUE: AP view of the pelvis FINDINGS: There is been interval resection of the proximal left femur which includes the trochanters and femora l head. There is moderate cortical thickening at the amputation stump. Bony irregularity is noted wit hin the left acetabulum which demonstrates increased lucency compared to prior study. Ill-defined rad iodense foci project adjacent to the amputation stump and left acetabulum with moderate soft tissue s welling. Moderate right hip osteoarthritis. There is progressive bone demineralization. No acute frac ture identified. IMPRESSION: 1. 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 2. Interval resection of the proximal left femur with considerable cortical thickening at the amputat ion stump. Bony irregularity of the acetabulum is also noted. Findings may be secondary to chronic os teomyelitis/septic arthropathy. 3. No acute fracture identified. ACT 112: Negative or not required by law. The above report was generated using voice recognition software. It may contain grammatical, syntax o r spelling errors. Electronically signed by: Pedro Lind M.D. 08/20/2021 6:54 AM
[2021-08-20] MEDS ORDERED: MEROPENEM CONSULT ACTIVE PRN (07:10)
[2021-08-20] MEDS ORDERED: MEROPENEM 2,000 MG in 0.9 % SODIUM CHLORIDE 58 ML IV SCH (07:15)
[2021-08-20] MEDS ORDERED: POTASSIUM PHOSPHATE 30 MMOL in SODIUM CHLORIDE 0.9% 500 ML IV ONE (07:30)
--- NOTE | 2021-08-20 08:08 | XRay Report ---
KUB HISTORY: NG tube placement. COMPARISON: Abdomen pelvis CT 08/20/2021. FINDINGS: Nasogastric tube is looped within the large hiatus hernia with the tip terminating at the d iaphragmatic hiatus. Distended and stool-filled large bowel again noted. No renal calculi. No ureter al calculi. No pneumoperitoneum or pneumatosis. IMPRESSION: 1. Nasogastric tube is looped within the large hiatus hernia with the tip terminating at the diaphrag matic hiatus. 2. Distended and stool-filled colon. ACT 112: Negative or not required by law. Electronically signed by: Andrade Mcfadden M.D. 08/20/2021 8:07 AM
--- NOTE | 2021-08-20 08:17 | XRay Report ---
XR chest 1V portable HISTORY: Intubation. sepsis COMPARISON: Chest 06/28/2021. FINDINGS: Nasogastric tube is located within the right mainstem bronchus on the first image. However, this was repositioned multiple times. The final image demonstrated the nasogastric tube at the expec madelyn location of the large hiatus hernia. The left PICC now extends cephalad and terminates at the exp ected location of the distal right internal jugular vein. Endotracheal tube terminates abruptly 5.3 c m from the james. There is a large hiatus hernia. Small patchy density within the right lung base. N o pneumothorax. No pleural effusions. IMPRESSION: 1. Nasogastric tube is located within the right mainstem bronchus on the first image. However, this w as repositioned multiple times. The final image demonstrated the nasogastric tube at the expected loc ation of the large hiatus hernia. 2. Endotracheal tube terminates 5.3 cm from the james. This could be advanced by approximately 2 cm. 3. The left PICC now extends cephalad into the expected location of the distal right internal jugular vein. ACT 112: Negative or not required by law. Electronically signed by: Andrade Mcfadden M.D. 08/20/2021 8:16 AM
[2021-08-20] MEDS: MAGNESIUM SULFATE / D5W 1 GM/100 ML BAG IV SCH ×3 (08:30→10:48)
[2021-08-20] MEDS: MEROPENEM 500 MG in SYRINGE 0 ML IV SCH ×3 (08:31→20:10)
[2021-08-20] MEDS: TIMOLOL MALEATE 0.5% OP SOLN 5 ML BTL OP SCH (08:31)
--- NOTE | 2021-08-20 08:37 | CT Scan Report ---
CT chest diagnostic wo con, CT abd pelvis wo con CLINICAL HISTORY: 66 years-old Male with ams, respiratory failure. Acutely altered mental status wit h respiratory failure and sepsis. TECHNIQUE: Multiaxial CT images of the chest, abdomen and pelvis were performed without contrast. A dose lowering technique was utilized adhering to the principles of ALARA. COMPARISON: Chest radiograph of same day, chest CT 08/16/2020, MRI thoracic spine December 13, 2020, MRI shefali mbar spine 06/27/2021, MRI left hip 03/16/2021, left hip radiographs 03/14/2021. FINDINGS: CT CHEST: Moderate cardiomegaly. Extensive coronary artery calcifications. No thoracic aortic aneurysm. Dilated artery suggestive of pulmonary artery hypertension. A left-sided PICC distal tip projects superiorly and terminates within the right internal jugular vein. Endotracheal tube terminates approximately 4. 5 cm superior to the james. No pericardial effusion. Unremarkable thyroid. Prominent mediastinal and hilar lymph nodes are favored to be reactive. Trace left and small right pleural effusions. No pneumothorax. Mild dependent bibasilar predominant c onsolidation. Mild intralobular septal thickening. Respiratory motion artifact limits evaluation of t he lung parenchyma. The central airways are patent. Mild generalized body wall edema. Gynecomastia. D egenerative changes are present within the spine and shoulders. T8-T9 and T10-T11 endplate irregulari ty with endplate sclerosis redemonstrated. Severe anterior superior vertebral body height loss at T11 appears unchanged. There is persistent paravertebral edema. No focal fluid collection is identified. CT ABDOMEN/PELVIS: No pneumatosis or pneumoperitoneum. The study is degraded by respiratory motion artifact and upper ex tremity positioning. Metallic density radiodense focus is noted within the dependent stomach suggesti ve of postoperative change versus foreign body. Limited evaluation of the solid abdominal organs with out the use of IV contrast. The unenhanced spleen, adrenal glands, mildly atrophic pancreas are unrem arkable. Cholecystectomy. Suboptimally visualized liver appears unremarkable. Nonspecific bilateral perinephric stranding. There is mild bilateral hydroureteronephrosis with sugge stion of renal sinus cysts. Gardner catheter is noted within the urinary bladder lumen which contains h yperdense material suggestive of hemorrhagic debris. The prostate is upper limits of normal in size. No abdominal aortic aneurysm. Large hiatal hernia. There are scattered large and small bowel air-fluid levels with mild large and s mall bowel dilation. Fecal debris distends the rectosigmoid. Trace abdominal pelvic ascites. Noninfla med appendix. Anasarca. Interval resection of the proximal femur. There is a complex left hip joint e ffusion with bony irregularity of the acetabulum. Cortical thickening of the proximal femur with plac ement of a left hip. Diminutive appearance of the bones. Moderate right hip osteoarthritis. No acute fracture identified. Asymmetric sclerosis of the right iliac bone adjacent to the SI joint may reflec t a chronic fracture. IMPRESSION: 1. Left-sided PICC distal tip terminates within the right internal jugular vein. Repositioning is nee ded. There is satisfactory positioning of the endotracheal tube. 2. Cardiomegaly with suggested pulmonary edema, trace left and small right pleural effusions. 3. Bibasilar mucous plugging with mild bibasilar densities suggestive of atelectasis versus pneumonit is. 4. Suggested constipation with ileus. No bowel obstruction. 5. Gardner catheter is in place with suggested hemorrhagic debris within the urinary bladder lumen. The re is mild bilateral hydroureteronephrosis. 6. Endplate irregularity at T8-T9 and T10-T11 redemonstrated with pathologic T11 compression deformit y. Findings are compatible with chronic discitis/osteomyelitis. 7. Interval resection of the proximal left femur with findings suggestive of chronic septic arthropat hy. 8. Progressively worsened bone demineralization suggestive of disuse osteopenia. 9. Additional findings as above. ACT 112: Negative or not required by law. Electronically signed by: Pedro Lind M.D. 08/20/2021 8:35 AM
--- NOTE | 2021-08-20 08:55 | XRay Report ---
XR chest 1V portable CLINICAL HISTORY: Resp failure. COMPARISON STUDY: 08/19/2021 TECHNIQUE: 1 view of the chest FINDINGS: Single frontal view of the chest demonstrates the heart size to again be enlarged. A large hiatal her steve is seen projecting to the left related to slight patient rotation. The patient's NG tube is curle d within the hiatal hernia and then extends into the stomach. ET tube and left-sided PICC line are un changed. There is minimal left basilar atelectasis related to the hiatal hernia. No definite confluent alveola r opacities are identified. There is no evidence for pleural effusion. There is no evidence for vascu lar congestion. There is no acute osseous pathology. IMPRESSION: Minimal left basilar atelectasis. Otherwise, no acute chest disease. Tubes and catheters as described above. ACT 112: Negative or not required by law. Electronically signed by: Imtiaz Diallo M.D. 08/20/2021 8:54 AM
--- NOTE | 2021-08-20 09:30 | Hospitalist Progress Note ---
Date of Service August 20, 2021 Assessment & Plan (1) Thoracic abscess: (2) Septic shock: (3) OCTAVIO (acute kidney injury): (4) Osteomyelitis: (5) Pleural effusion: (6) Respiratory failure: (7) Lactic acidosis: (8) Acute urinary retention: (9) Acute UTI: (10) Complication, blocked Gardner catheter: (11) UTI (urinary tract infection): (12) Urinary retention: (13) Neurogenic bladder: (14) Obesity: (15) Hyperlipidemia: (16) Hypertension: (17) Hypothyroidism: (18) Osteoarthritis of hip: (19) Seizure disorder: (20) Paranoid schizophrenia, chronic condition: Plan: This is a 66-year-old gentleman with a history of left hip infection from MRSA (recently s/p IV vancomycin treatment), MRSA bacteremia, previous thoracic abscess, neurogenic bladder, hypertension, hyperlipidemia, seizure disorder, and paranoid schizophrenia who presented to [facility] by ambulance for evaluation of altered mental status and hypoxia, subsequently found to be hypotensive, hypoxic, and obtunded on arrival in the setting of recent colonoscopy and clogged urinary catheter, requiring emergent intubation, initiation of mechanical ventilation, and initiation of pressors -- all concerning for septic shock. Septic Shock Patient presented tachycardic, hypotensive, febrile w/ elevated pro-Richard (>20) and lactate (5) Source at this time is somewhat unclear; per history, patient has history of recently treated septic hip osteoarthritis (wound culture grew MRSA), as well as previous discitis/thoracic abscess, and chronically indwelling Gardner that was noted to be clogged upon arrival here --Based on preliminary read of CT abdomen pelvis by stat rad, concern that there may be redevelopment of septic joint within the left hip --Admission UA did demonstrate significant leuk esterase, white blood cells and RBCs --H/O discitis/thoracic abscess involving T10-T11 (see below) --No evidence of perforation on CT-A/P preliminary read (in setting of recent colonoscopy) Await urine cultures and blood cultures (has history of MRSA and ESBL UTI) Consider repeat TTE pending blood culture results; no e/o vegetations on prior TTE in 03/2021 during MRSA bacteremia Currently requiring vasopressor support in ICU to maintain MAP over 65 - on norepi and vasopressin Continue IV fluid support, monitor urine output Continue broad-spectrum antibiotic coverage with Meropenem (Hx of ESBL) and Zyvox Ventilator Dependent Respiratory Failure On arrival, patient was noted to be hypoxic to the 60% range; he later became obtunded and did require emergent intubation for airway protection. He was initially acidotic and hypercapnic. No evidence of obvious consolidation or infectious process on chest CT/chest x- ray Per ICU: Currently requiring minimal vent settings, wean as able Follow-up ABGs per ICU management Acute Kidney Injury -- Cr baseline ~1 On arrival, patient noted to have BUN 31/Cr 2 Etiology is likely multifactorial in the setting of hypotension/septic shock, clogged Gardner on arrival per ED provider -- which was since changed and is now draining urine Continue fluid resuscitation/pressors per ICU Monitor BMP and urine output, goal >0.5cc/kg/hr L Hip Effusion and Degeneration With previous history of MRSA septic arthritis within the left hip (likely from translocation of MRSA bacteremia); was previously deemed not to be surgical candidate. Recently finished IV vancomycin (per ED team - approx. 1 week ago?) CT abdomen/pelvis demonstrated: "progressive destruction of the left femoral acetabular joint with resorptive changes of the femoral head and acetabulum joint. 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 He was seen by Dr. Gibbs in consultation while hospitalized on 03/17, who did recommend referral to tertiary care facility. Interval history is unknown to me at time of admission Chest CT (STAT Rad) demonstrated significant implant irregularity within vertebral body at [id number], which is new from the previous exam Continue broad-spectrum antibiotics Consider consultation with spine surgery if indicated as work-up continues Leukopenia Patient noted to have leukopenia to 2.87 upon arrival; etiology of this is somewhat unclear at this time. May represent process secondary to ongoing sepsis and marrow progression Continue to monitor, continue broad-spectrum antibiotics If continues, may want to consider peripheral blood smear Neurogenic Bladder Follows with [facility] - suspected to be secondary to prior spinal infection Per outpatient notes, SP tube is considered in the future Does require chronic Gardner catheterchanged upon arrival in the ED Seizure Disorder Patient with reported history of seizures, taking daily carbamazepine Carbamazepine currently on hold while n.p.o./intubated; if OGT inserted, may want to consider resumption when appropriate Paranoid schizophrenia/depression/mood disorder Hold home medications while n.p.o. Hypothyroidism Hold home levothyroxine while n.p.o. Hypertension Hold home antihypertensives in setting of septic shock/hypotension (metoprolol, Lasix) Code: Documentation referencing advanced directive indicates patient is FULL CODE Dispo: ICU Diet: N.p.o. PPX: SCDs -- pharmacological management per ICU team Admission and Anticipated Discharge Date Admission Date: August 20, 2021 Subjective Patient is intubated and sedated. Unable to get any history. Patient admitted the same day therefore I will not be billing for this encounter. Review of Systems Review of Systems: Unobtainable due to endotracheal tube Physical Exam Constitutional: WD/WN, vitals as above + mechanically ventilated; no acute distress Eyes: PERRL, conjunctivae normal, anicteric sclerae ENMT: Mouth: + dry oral mucous membranes Respiratory: normal respiratory effort Auscultation: no diminished lung sounds, no crackles, no rales, no rhonchi and no wheezes Cardiovascular: Rate/Rhythm: regular rhythm and + tachycardic Heart Sounds: no murmur Extremities: + pedal edema (1+ pre-tibial b/l equal) Gastrointestinal (Abdomen): Inspection/Auscultation: abdomen not distended Percussion/Palpation: abdomen soft; abdomen nontender Skin: no rashes, warm and dry (no areas of cellulitis) Neurologic: + not awake (sedated) Results & Data Results & Data ([facility]) Vital Signs (Past 12 Hours) Vital Signs Temp Pulse Pulse Resp BP BP Pulse Ox 08/20/21 07:20 87 20 97 08/20/21 06:50 38.4 C H 89 19 112/79 98 08/20/21 06:40 38.7 C H 90 18 110/79 98 08/20/21 06:30 38.5 C H 88 17 105/86 98 08/20/21 06:20 38.8 C H 88 17 108/81 98 08/20/21 06:10 38.7 C H 90 17 97/76 L 98 08/20/21 06:00 38.8 C H 88 19 105/77 98 08/20/21 05:50 38.8 C H 88 19 111/78 98 08/20/21 05:40 38.7 C H 88 15 100/80 98 08/20/21 05:31 38.8 C H 90 15 110/74 98 08/20/21 05:30 38.8 C H 91 H 19 98 08/20/21 05:20 38.8 C H 89 17 98 08/20/21 05:10 38.8 C H 89 20 100/68 98 08/20/21 05:00 38.8 C H 89 18 98/73 L 97 08/20/21 04:50 38.7 C H 88 19 91/67 L 97 08/20/21 04:49 38.7 C H 89 16 93/64 L 98 08/20/21 04:46 38.6 C H 91 H 19 80/63 L 98 08/20/21 04:40 38.8 C H 88 15 64/44 L 95 08/20/21 04:30 38.9 C H 90 16 93/68 L 98 08/20/21 04:20 38.8 C H 89 16 94/73 L 98 08/20/21 04:10 38.9 C H 90 14 96/65 L 97 08/20/21 04:00 38.9 C H 90 18 99/66 L 98 08/20/21 03:50 38.9 C H 89 17 93/70 L 98 08/20/21 03:40 38.9 C H 91 H 17 94/68 L 98 08/20/21 03:30 39.0 C H 93 H 16 95/70 L 98 08/20/21 03:20 39.0 C H 90 16 93/66 L 98 08/20/21 03:10 39.0 C H 91 H 17 97/69 L 98 08/20/21 03:00 39.0 C H 91 H 17 91/63 L 98 08/20/21 02:56 39.1 C H 92 H 18 88/62 L 98 08/20/21 02:50 39.1 C H 93 H 16 88/75 L 98 08/20/21 02:40 39.1 C H 94 H 14 88/65 L 99 08/20/21 02:31 39.1 C H 96 H 15 88/64 L 96 08/20/21 02:30 39.1 C H 96 H 15 97 08/20/21 02:20 39.2 C H 96 H 18 98 08/20/21 02:10 39.1 C H 97 H 17 88/60 L 99 08/20/21 02:00 39.2 C H 100 H 18 93/59 L 98 08/20/21 01:50 39.2 C H 99 H 19 92/58 L 97 08/20/21 01:46 39.2 C H 99 H 18 102/57 L 98 08/20/21 01:41 39.2 C H 98 H 21 98 08/20/21 01:34 98 H 23 97 08/20/21 01:20 39.2 C H 97 H 22 87/57 L 98 08/20/21 01:11 101 H 20 81/54 L 97 08/20/21 01:05 96 H 20 72/50 L 99 08/20/21 01:00 97 H 20 74/54 L 100 08/20/21 00:50 98 H 21 71/45 L 98 08/20/21 00:40 99 H 24 78/58 L 99 08/20/21 00:35 97 H 21 69/50 L 98 08/20/21 00:34 96 H 21 98 08/20/21 00:25 97 H 22 73/55 L 98 08/20/21 00:21 98 H 19 84/51 L 96 08/20/21 00:15 97 H 20 78/52 L 97 08/20/21 00:10 96 H 20 86/55 L 96 08/20/21 00:05 98 H 22 87/54 L 95 08/20/21 00:00 98 H 22 98/59 L 96 08/19/21 23:56 98 H 22 65/52 L 96 08/19/21 23:55 98 H 24 58/46 L 98 08/19/21 23:53 97 H 22 74/48 L 96 08/19/21 23:51 98 H 22 72/54 L 96 08/19/21 23:45 97 H 22 93/44 L 96 08/19/21 23:40 98 H 22 81/50 L 95 08/19/21 23:35 101 H 20 76/46 L 08/19/21 23:32 103 H 20 80/50 L 95 08/19/21 23:30 105 H 20 78/62 L 97 08/19/21 23:25 109 H 20 88/61 L 95 08/19/21 23:20 106 H 24 91/55 L 95 08/19/21 23:15 109 H 18 87/63 L 96 08/19/21 22:30 20 99 08/19/21 21:55 39.9 C H 115 H 20 77/44 L 98 PG Care Time/CCT Total # of Minutes Spent Total Time Spent with Patient: Total time spent is greater than 50% in coordination of care (as documented) at patient's floor/unit and/or counseling patient: Coding Level of Care Code None Diagnoses Thoracic abscess J86.9 Septic shock A41.9; R65.21 OCTAVIO (acute kidney injury) N17.9 Osteomyelitis M86.9 Pleural effusion J90 Respiratory failure J96.01 Chronicity: acute Respiratory failure complication: hypoxia Lactic acidosis E87.2 Acute urinary retention R33.8 Acute UTI N39.0 Complication, blocked Gardner catheter T83.091A Encounter type: initial encounter UTI (urinary tract infection) N39.0 Urinary retention R33.9 Neurogenic bladder N31.9 Obesity E66.9 Hyperlipidemia E78.5 Hypertension I10 Hypothyroidism E03.9 Osteoarthritis of hip M16.9 Seizure disorder G40.909 Paranoid schizophrenia, chronic condition F20.0 (1) Respiratory failure Chronicity: acute Respiratory failure complication: hypoxia Qualified Code(s): J96.01 - Acute respiratory failure with hypoxia (2) Complication, blocked Gardner catheter Encounter type: initial encounter Qualified Code(s): T83.091A - Other mechanical complication of indwelling urethral catheter, initial encounter
--- NOTE | 2021-08-20 09:30 | Electrocardiogram Report ---
Test Reason : Blood Pressure : / mmHG Vent. Rate : 104 BPM Atrial Rate : 104 BPM P-R Int : 238 ms QRS Dur : 110 ms QT Int : 330 ms P-R-T Axes : 012 039 003 degrees QTc Int : 433 ms Poor data quality, interpretation may be adversely affected Sinus tachycardia with 1st degree A-V block Otherwise normal ECG When compared with ECG of 14-MAR-2021 14:14, Premature atrial complexes are no longer Present Confirmed by Rashard Lamar ([id number]) on 08/20/2021 9:29:57 AM Referred By: [facility] Confirmed By:Rashard Lamar
[2021-08-20] MEDS ORDERED: ACETAMINOPHEN SUSP 325 MG/10.15 ML UDC PO PRN (10:20)
--- NOTE | 2021-08-20 11:10 | Critical Care Progress Note ---
Date of Service August 20, 2021 Assessment & Plan (1) Osteomyelitis: (2) Septic shock: (3) OCTAVIO (acute kidney injury): (4) Acute urinary retention: (5) Acute UTI: (6) Metabolic encephalopathy: Plan: Reason Critically Ill: 66-year-old male presents to the ICU in septic shock with unknown source at this time, requiring mechanical ventilation and vasopressor support. Neuro - Sedation: Fentanyl drip. Propofol discontinued due to severe hypotension requiring vasopressors -Hold antipsychotics for now Cardiac - Septic shockpatient profoundly hypotensive requiring multiple vasopressors. - Elevated lactate and pro Ricahrd and febrile, high suspicion for sepsis. See ID management below -Echo 03/20/21: Normal LV function with EF 55 to 60%, no valvular vegetation. No valvular disease -Troponin negative -Random cortisol 35 -Maintain maps greater than 65. Wean vasopressors as tolerated Respiratory - Hypoxic respiratory failurepatient was on 100% nonrebreather in the ED and was ultimately intubated due to unresponsiveness. He is on minimal vent settings at this time with PEEP of 5 and FiO2 30%. -Wean vent as tolerated. Follow-up ABG and chest x-ray in a.m. -Continuous monitoring pulse ox GI - Tube feeds Bowel regimen RENAL/LYTES - AKIcreatinine 2.0 with baseline 0.8 -Possible ATN secondary to hypotension versus postobstructive given block Gardner catheter -Avoid nephrotoxic medication, monitor BUNs/creatinine -Continue with IV fluid resuscitation -Monitor routine BMPs. Replete electrolytes as indicated Lactic acidosisinitial lactate 5.5 likely secondary to sepsis. Repeat pending -Trending down - Patient's chronic Gardner was obstructed on arrival to the ED and patient produced 1.5 L urine on exchange. Unsure if this is possible source of sepsis. Urine culture pending. Strict I's and O's ENDO - No history of diabetes. ICU hyperglycemic protocol Hypothyroidcontinue Synthroid HEME - Monitor H&H ID - Sepsis with gram-negative bacteremia with multiple potential sources with recent septic hip with osteomyelitis. Also has chronic Gardner -Blood cultures 08/19/2021 gram-negative bacilli Procalcitonin 21.06, COVID-19 PCR negative -Patient does have history of MRSA and E. coli ESBL UTI -Nasal MRSA negative - 08/20/2021 --Endplate irregularity at T8-T9 and T11-T11 Findings could be chronic discitis or osteomyelitis --Prophylaxis VTE: IPC's GI: Protonix Lines: Left arm PICC, positive Gardner, positive ETT Diet: Tube feeds Plan: In/out: +5.2 L, urine output 60 mL Change linezolid to daptomycin given the patient is on multiple serotonergic drugs Zosyn has been changed to meropenem has history of ESBL Electrolytes are being replaced. Patient will most likely need central line as he is getting bacteremia Overall prognosis is guarded I have personally spent 45 minutes of critical care time in the direct management of this patient. This is a life/limb threatening event. This includes time spent evaluating patient, direct bedside care, chart review, placing orders, interpretation of diagnostic studies, discussion with consultants, patient, and family members, as well as other required patient management activities. This time is exclusive of all separately billable procedures, and teaching time and separate from and in addition to any other critical care service time. Admission and Anticipated Discharge Date Admission Date: August 20, 2021 Subjective Patient seen and examined at bedside. No acute distress, no adverse events since coming to the hospital Patient is 0.28 of Levophed and 0.04 of vasopressin He was only on low-dose fentanyl Breathing over the vent. Has been febrile T-max 38.4 Review of Systems Review of Systems: Unobtainable due to endotracheal tube Physical Exam Physical Exam: Constitutional: No acute distress HEENT: PERRLA Respiratory system: Decreased air entry bilaterally, no wheeze, rhonchi, positive crackles bilaterally lower lobes CVS: S1-S2 positive, no murmurs or gallops Abdomen: Soft, nontender, nondistended, positive bowel sounds x4 Extremities: +2 pulses bilaterally radialis/ dorsalis pedis, no cyanosis, +2 ankle edema bilaterally more on the left side Shortened left lower extremity Neuro: Positive pupillary, positive gag, breathing over the vent Psych: Unable to assess G/U: Positive Gardner Skin: no rashes, warm and dry Lymphatic: no cervical or axillary lymphadenopathy Results & Data Results & Data ([facility]) Vital Signs (Past 12 Hours) Vital Signs Temp Pulse Pulse Resp BP BP Pulse Ox 08/20/21 07:20 87 20 97 08/20/21 06:50 38.4 C H 89 19 112/79 98 08/20/21 06:40 38.7 C H 90 18 110/79 98 08/20/21 06:30 38.5 C H 88 17 105/86 98 08/20/21 06:20 38.8 C H 88 17 108/81 98 08/20/21 06:10 38.7 C H 90 17 97/76 L 98 08/20/21 06:00 38.8 C H 88 19 105/77 98 08/20/21 05:50 38.8 C H 88 19 111/78 98 08/20/21 05:40 38.7 C H 88 15 100/80 98 08/20/21 05:31 38.8 C H 90 15 110/74 98 08/20/21 05:30 38.8 C H 91 H 19 98 08/20/21 05:20 38.8 C H 89 17 98 08/20/21 05:10 38.8 C H 89 20 100/68 98 08/20/21 05:00 38.8 C H 89 18 98/73 L 97 08/20/21 04:50 38.7 C H 88 19 91/67 L 97 08/20/21 04:49 38.7 C H 89 16 93/64 L 98 08/20/21 04:46 38.6 C H 91 H 19 80/63 L 98 08/20/21 04:40 38.8 C H 88 15 64/44 L 95 08/20/21 04:30 38.9 C H 90 16 93/68 L 98 08/20/21 04:20 38.8 C H 89 16 94/73 L 98 08/20/21 04:10 38.9 C H 90 14 96/65 L 97 08/20/21 04:00 38.9 C H 90 18 99/66 L 98 08/20/21 03:50 38.9 C H 89 17 93/70 L 98 08/20/21 03:40 38.9 C H 91 H 17 94/68 L 98 08/20/21 03:30 39.0 C H 93 H 16 95/70 L 98 08/20/21 03:20 39.0 C H 90 16 93/66 L 98 08/20/21 03:10 39.0 C H 91 H 17 97/69 L 98 08/20/21 03:00 39.0 C H 91 H 17 91/63 L 98 08/20/21 02:56 39.1 C H 92 H 18 88/62 L 98 08/20/21 02:50 39.1 C H 93 H 16 88/75 L 98 08/20/21 02:40 39.1 C H 94 H 14 88/65 L 99 08/20/21 02:31 39.1 C H 96 H 15 88/64 L 96 08/20/21 02:30 39.1 C H 96 H 15 97 08/20/21 02:20 39.2 C H 96 H 18 98 08/20/21 02:10 39.1 C H 97 H 17 88/60 L 99 08/20/21 02:00 39.2 C H 100 H 18 93/59 L 98 08/20/21 01:50 39.2 C H 99 H 19 92/58 L 97 08/20/21 01:46 39.2 C H 99 H 18 102/57 L 98 08/20/21 01:41 39.2 C H 98 H 21 98 08/20/21 01:34 98 H 23 97 08/20/21 01:20 39.2 C H 97 H 22 87/57 L 98 08/20/21 01:11 101 H 20 81/54 L 97 08/20/21 01:05 96 H 20 72/50 L 99 08/20/21 01:00 97 H 20 74/54 L 100 08/20/21 00:50 98 H 21 71/45 L 98 08/20/21 00:40 99 H 24 78/58 L 99 08/20/21 00:35 97 H 21 69/50 L 98 08/20/21 00:34 96 H 21 98 08/20/21 00:25 97 H 22 73/55 L 98 08/20/21 00:21 98 H 19 84/51 L 96 08/20/21 00:15 97 H 20 78/52 L 97 08/20/21 00:10 96 H 20 86/55 L 96 08/20/21 00:05 98 H 22 87/54 L 95 08/20/21 00:00 98 H 22 98/59 L 96 08/19/21 23:56 98 H 22 65/52 L 96 08/19/21 23:55 98 H 24 58/46 L 98 08/19/21 23:53 97 H 22 74/48 L 96 08/19/21 23:51 98 H 22 72/54 L 96 08/19/21 23:45 97 H 22 93/44 L 96 08/19/21 23:40 98 H 22 81/50 L 95 08/19/21 23:35 101 H 20 76/46 L 08/19/21 23:32 103 H 20 80/50 L 95 08/19/21 23:30 105 H 20 78/62 L 97 08/19/21 23:25 109 H 20 88/61 L 95 08/19/21 23:20 106 H 24 91/55 L 95 08/19/21 23:15 109 H 18 87/63 L 96 Laboratory Results 08/20/21 05:30 08/20/21 05:30 Coding Level of Care Code Critical Care ea addt'l 30 min Diagnoses Osteomyelitis M86.9 Septic shock A41.9; R65.21 OCTAVIO (acute kidney injury) N17.9 Acute urinary retention R33.8 Acute UTI N39.0 Metabolic encephalopathy G93.41 Time Spent (min) 45
[2021-08-20] MEDS: PANTOprazole 40 MG in SYRINGE 0 ML IV SCH (11:39)
[2021-08-20] MEDS: DAPTOmycin 425 MG in SYRINGE 0 ML IV SCH (11:42)
[2021-08-20] MEDS: DOCUSATE SODIUM SYRUP 100 MG/10 ML UDC PO SCH ×2 (11:43→20:10)
[2021-08-20] MEDS: SENNOSIDES 8.8 MG/5 ML UDC PO SCH (11:43)
[2021-08-20] MEDS: carBAMazepine 100 MG CHEW TAB PO SCH ×2 (11:43→18:40)
--- NOTE | 2021-08-20 16:46 | Progress Notes ---
DATE OF SERVICE: 08/20/2021. The patient is a 66-year-old. I was consulted to see him. He is known to me from several prior [facility] hospitalizations. Most recently in February-March, he was admitted to [facility]. He end ed up having what appears to be a chronic septic arthritis with osteomyelitis of his left hip. He wa s sent to a tertiary care facility, which I believe was [facility]. He was [facility] the [facility] with sepsis and obtundation. We were asked to evaluate his left hip for the possibility as a source of infection. His left hip aspiration 03/18/2021 grew out MRSA. He is currently growing ou t gram-negative bacilli. His urinary catheter was obstructed when he was admitted. He is currently intubated on a ventilator and nonresponsive. White count is 16,000, hemoglobin 12, hematocrit 36, pl atelets are 150. Positive left shift. PRP is noted. Lactate is elevated. Temps are routinely great er than 38 C. CAT scan is reviewed, along with x-rays. He has had a resection arthroplasty of the l eft hip. The femoral head has been excised. The report indicates fluid within the left hip area. On clinical evaluation, there is no erythema, warmth or effusion detected in the shoulders, elbows, w rists, knees, ankles or either hip with the exception of a small amount of fluid in the left knee. P edal pulses are palpable. He is not awake to follow commands. The right hip shows limited movement and he is known to have significant osteoarthritis there. The left hip is also stiff with limited mo vement. There is a well-healed large posterolateral incision with no drainage, erythema, or swelling present. I do not see an imminent need for orthopedic operative intervention. Given his cultures, it is possi ble that he has sepsis from urinary tract issue. It is conceivable to attempt aspiration using ultra sound or CT guidance of the left hip and obtain a culture of that fluid to see if there are any resid ual infection present. I have asked the refinery operator helper crude unit to request records from his previous institut ion to see what type of treatments surgical procedures, etc., were performed. None of his limbs are swollen. There are several lines in the left arm. Job ID: [id number]
--- NOTE | 2021-08-20 16:51 | XRay Report ---
XR chest 1V portable HISTORY: right IJ placement COMPARISON: Chest 08/20/2021. FINDINGS: Endotracheal tube terminates approximately 4.1 cm from the james. Nasogastric tube remains curled within the large hiatus hernia. The heart remains enlarged. A left pectoral is at the distal SVC. A right jugular central venous catheter also terminates at the SVC. No pneumothorax. No pleural effusions. IMPRESSION: 1. Satisfactory support line placement as described above. 2. No pneumothorax. 3. Large hiatus hernia which contains the patient's NG tube. ACT 112: Negative or not required by law. Electronically signed by: Andrade Mcfadden M.D. 08/20/2021 4:50 PM
--- NOTE | 2021-08-20 16:56 | Procedure Note ---
Procedure Note Date of Service August 20, 2021 Note Procedure: Inserting ultrasound-guided central continuous pickling line pickler helper: Dr. Anai Caal Indication: Hypotension and bacteremia Consent: Emergent consent was applied Anesthesia: 1% lidocaine without epinephrine local. Procedure: Consent was verified and timeout performed. Appropriate imaging studies were reviewed prior to the procedure. Under aseptic and sterile condition, right IJ vein was accessed under direct ultrasound guidance. Guidewire was confirmed to be within the lumen of vein with the help of ultrasound. Catheter was introduced via Seldinger technique. Guide a wire was removed. Good non-pulsatile blood flow was appreciated from all the ports. The catheter was placed at 16 cm [address] in place. BioPatch was applied to the catheter and a sterile Tegaderm dressing was applied over the catheter with careful attention to sterility. Lung sliding was appreciated post procedure with the help ultrasound. Chest x-ray to follow Patient tolerated the procedure well. Blood loss: Less than 1 cc Complications: None Coding CPT Codes Tubes, Drains, and Vasc Access - Tubes, Drains, and Vasc Access: [id number] Place catheter in vein superior or inferior vena cava ([id number]) Tubes, Drains, and Vasc Access - Tubes, Drains, and Vasc Access: [id number] Ultrasound Guidance For Vascular ([id number]) [facility] Procedure Codes (Charges) Tubes, Drains, and Vasc Access Procedure 1: Tubes, Drains, and Vasc Access: [id number] Place catheter in vein superior or inferior vena cava Procedure 2: Tubes, Drains, and Vasc Access: [id number] Ultrasound Guidance For Vascular
[2021-08-20] MEDS ORDERED: SUCCINYLCHOLINE CHLORIDE 20 MG/ML 10 ML VIAL IV ONE (19:13)
[2021-08-20] MEDS ORDERED: ETOMIDATE 2 MG/ML 20 ML VIAL IV ONE (19:13)
[2021-08-20] MEDS ORDERED: HEPARIN SOD 5,000 UNIT/0.5 ML VIAL SQ SCH (21:00)
--- NOTE | 2021-08-20 21:27 | Billing Data ---
Date of Service August 20, 2021 Coding Level of Care Code Critical Care 08 18- mins
[2021-08-21] MEDS: carBAMazepine 100 MG CHEW TAB PO SCH ×5 (00:06→21:47)
[2021-08-21] MEDS: NOREPINEPHRINE/D5W 8 MG/508 ML BAG IV SCH (01:20)
[2021-08-21] MEDS: MEROPENEM 500 MG in SYRINGE 0 ML IV SCH ×4 (01:22→21:46)
[2021-08-21] MEDS: VASOPRESSIN 20 UNITS in 0.9 % SODIUM CHLORIDE 100 ML IV SCH ×4 (02:50→09:46)
[2021-08-21 04:31] LABS: iSTAT Art Bld Gas pCO2 Correct 48 mmHg (35-46); iSTAT Arterial Blood Gas HCO3 21 meg/L (19-24); iSTAT Arterial Blood Gas pCO2 49 mmHg (35-46); iSTAT Arterial Blood Gas pH 7.23 (7.35-7.45); iSTAT Arterial Blood Gas pO2 46 mmHg (80-95); iSTAT Arterial Blood Gas pO2 C 45; iSTAT Carbon Dioxide 22 mmol/L (24-31); iSTAT FiO2 30 %; iSTAT Hematocrit 24 % (42-52); iSTAT Hemoglobin 8.2 g/dl (14.0-18.0); iSTAT Potassium 3.7 mmol/L (3.3-5.0); iSTAT Site R Brachial; iSTAT Sodium 138 mmol/L (135-144)
[2021-08-21 04:49] LABS: iSTAT Allen Test Pass; iSTAT Art Bld Gas pCO2 Correct 42 mmHg (35-46); iSTAT Art Bld Gas pH Corrected 7.303 (7.35-7.45); iSTAT Arterial Blood Gas HCO3 21 meg/L (19-24); iSTAT Arterial Blood Gas pCO2 43 mmHg (35-46); iSTAT Arterial Blood Gas pO2 102 mmHg (80-95); iSTAT Arterial Blood Gas pO2 C 99; iSTAT Carbon Dioxide 22 mmol/L (24-31); iSTAT Hematocrit 22 % (42-52); iSTAT Hemoglobin 7.5 g/dl (14.0-18.0); iSTAT Potassium 3.4 mmol/L (3.3-5.0); iSTAT Site L Radial; iSTAT Sodium 140 mmol/L (135-144)
[2021-08-21 05:30] LABS: Hematocrit (blood only) 26.5 % (42-52); Mean Corpuscular Volume 103.1 fL (80-100); RDW Coefficient of Variation 16.5 % (11.5-14.5); RDW Standard Deviation 62.3 fL (36.4-46.3); Red Blood Count 2.57 M/uL (4.7-6.1); White Blood Count 15.14 K/uL (4.8-10.8)
[2021-08-21 06:06] LABS: BUN Creatinine Ratio 26.3 (10-20); Calcium 7.3 mg/dl (8.5-10.1); Creatinine Clr Calc Pharmacy 53.5 ml/min; Est GFR (Non-African American) 42.3 ml/min; Magnesium 2.1 mg/dl (1.7-2.4); Potassium 3.5 mmol/L (3.5-5.1)
[2021-08-21 06:14] LABS: Mean Platelet Volume 11.2 fL (7.4-10.4); Platelet Count 77 K/uL (130-400)
[2021-08-21 06:15] LABS: ALC (manual) 0.39 K/uL (1.2-3.4); ANC (manual) 13.02 K/uL (1.4-6.5); Dohle Bodies 2+; Lymphocytes # (manual) 0.39 K/uL (1.2-3.4); Lymphocytes % (manual) 2.6 %; Metamyelocytes % (manual) 5.3 %; Monocytes # (manual) 0.39 K/uL (0.11-0.59); Monocytes % (manual) 2.6 %; Myelocytes # (manual) 0.53 K/uL (0-0); Myelocytes % (manual) 3.5 %; Neutrophils # (manual) 13.02 K/uL (1.4-6.5); Platelet Estimate Decreased (Normal)
[2021-08-21] MEDS: NORMOSOL-R 1,000 ML IV SCH (06:30)
--- NOTE | 2021-08-21 07:30 | XRay Report ---
XR chest 1V portable CLINICAL HISTORY: Resp failure. COMPARISON STUDY: 08/20/2021 TECHNIQUE: 1 view of the chest FINDINGS: Single frontal view of the chest demonstrates the heart to again be enlarged. Tubes and catheters are unchanged. Large hiatal hernia is again seen in the retrocardiac region. The lungs are otherwise bianca ar of alveolar opacities. There is no evidence for pleural effusion. There is no evidence for vascula r congestion. There is no acute osseous pathology. IMPRESSION: No acute cardiopulmonary disease. There is no significant interval change. ACT 112: Negative or not required by law. Electronically signed by: Imtiaz Diallo M.D. 08/21/2021 7:29 AM
[2021-08-21] MEDS: DOCUSATE SODIUM SYRUP 100 MG/10 ML UDC PO SCH ×2 (08:23→21:46)
[2021-08-21] MEDS: TIMOLOL MALEATE 0.5% OP SOLN 5 ML BTL OP SCH (08:23)
[2021-08-21] MEDS: SENNOSIDES 8.8 MG/5 ML UDC PO SCH (08:23)
[2021-08-21] MEDS: POTASSIUM CHLORIDE / WTR 10 MEQ/100 ML PLCT IV SCH ×3 (08:32→10:45)
[2021-08-21] MEDS: PANTOprazole 40 MG in SYRINGE 0 ML IV SCH (11:18)
[2021-08-21] MEDS: DAPTOmycin 425 MG in SYRINGE 0 ML IV SCH (11:18)
--- NOTE | 2021-08-21 12:18 | Critical Care Progress Note ---
Date of Service August 21, 2021 Assessment & Plan (1) Osteomyelitis: (2) Septic shock: (3) OCTAVIO (acute kidney injury): (4) Acute urinary retention: (5) Acute UTI: (6) Metabolic encephalopathy: Plan: Reason Critically Ill: 66-year-old male presents to the ICU in septic shock with unknown source at this time, requiring mechanical ventilation and vasopressor support. Neuro - Sedation: Fentanyl drip. Propofol discontinued due to severe hypotension requiring vasopressors -Hold antipsychotics for now Cardiac - Septic shockpatient profoundly hypotensive requiring multiple vasopressors. - Elevated lactate and pro Richard and febrile, high suspicion for sepsis. See ID management below -Echo 03/20/21: Normal LV function with EF 55 to 60%, no valvular vegetation. No valvular disease -Troponin negative -Random cortisol 35 -Maintain maps greater than 65. Wean vasopressors as tolerated Respiratory - Hypoxic respiratory failurepatient was on 100% nonrebreather in the ED and was ultimately intubated due to unresponsiveness. He is on minimal vent settings at this time with PEEP of 5 and FiO2 30%. -Wean vent as tolerated. Follow-up ABG and chest x-ray in a.m. -Continuous monitoring pulse ox GI - Tube feeds Bowel regimen RENAL/LYTES - AKIcreatinine 2.0 with baseline 0.8 -Possible ATN secondary to hypotension versus postobstructive given block Gardner catheter -Avoid nephrotoxic medication, monitor BUNs/creatinine -Monitor routine BMPs. Replete electrolytes as indicated Lactic acidosisinitial lactate 5.5 likely secondary to sepsis. Repeat pending -Trending down - Patient's chronic Gardner was obstructed on arrival to the ED and patient produced 1.5 L urine on exchange. Unsure if this is possible source of sepsis. Urine culture pending. Strict I's and O's ENDO - No history of diabetes. ICU hyperglycemic protocol Hypothyroidcontinue Synthroid HEME - --New onset thrombocytopenia Likely sepsis induced Continue to monitor Monitor H&H ID - Sepsis with gram-negative bacteremia with multiple potential sources with recent septic hip with osteomyelitis. Also has chronic Gardner -Blood cultures 08/19/2021 gram-negative bacilli Procalcitonin 21.06, COVID-19 PCR negative -Patient does have history of MRSA and E. coli ESBL UTI -Nasal MRSA negative - 08/20/2021 --Endplate irregularity at T8-T9 and T11-T11 Findings could be chronic discitis or osteomyelitis --Prophylaxis VTE: Heparin on hold due to thrombocytopenia GI: Protonix Lines: Right IJ 08/21, arm PICC discontinued 08/20/2021 positive Gardner, positive ETT Diet: Tube feeds Plan: In/out: +4.7 L, urine output 1197 Chest x-ray does not show any significant change compared to yesterday. CPK is trending down. We will give another dose of daptomycin Blood cultures are gram-negative bacilli, sensitivity not back yet Continue with meropenem DC IV fluids Hypokalemia being replaced Trial of extubation today. I have personally spent 36 minutes of critical care time in the direct management of this patient. This is a life/limb threatening event. This includes time spent evaluating patient, direct bedside care, chart review, placing orders, interpretation of diagnostic studies, discussion with consultants, patient, and family members, as well as other required patient management activities. This time is exclusive of all separately billable procedures, and teaching time and separate from and in addition to any other critical care service time. Admission and Anticipated Discharge Date Admission Date: August 20, 2021 Subjective Patient seen and family bedside. No acute distress, no adverse events overnight Patient was on 0.03 of Levophed and vasopressin 0.04 at the time of examination I was able to turn off the vasopressin He was waking up following commands Denied any headache, no chest pain, no belly pain, no leg pain. Review of Systems Review of Systems: All systems reviewed & are unremarkable except as noted in Subjective Physical Exam Physical Exam: Constitutional: No acute distress HEENT: PERRLA, EOMI Respiratory system: Decreased air entry bilaterally, no wheeze, rhonchi, positive crackles bilaterally lower lobes CVS: S1-S2 positive, no murmurs or gallops Abdomen: Soft, nontender, nondistended, positive bowel sounds x4 Extremities: +2 pulses bilaterally radialis/ dorsalis pedis, no cyanosis, +2 ankle edema bilaterally more on the left side Shortened left lower extremity Neuro: Positive pupillary, positive gag, breathing over the vent Psych: Unable to assess G/U: Positive Gardner Skin: no rashes, warm and dry Lymphatic: no cervical or axillary lymphadenopathy Results & Data Results & Data ([facility]) Vital Signs (Past 12 Hours) Vital Signs Temp Pulse Resp BP Pulse Ox 08/21/21 11:17 86 20 100 08/21/21 09:00 36.4 C L 87 6 L 102/73 08/21/21 08:45 36.4 C L 89 17 106/70 08/21/21 08:30 36.4 C L 88 9 L 117/69 08/21/21 08:15 36.4 C L 87 18 116/72 08/21/21 08:00 36.4 C L 85 18 97/73 L 08/21/21 07:45 36.4 C L 86 18 113/69 08/21/21 07:30 36.4 C L 86 18 111/71 100 08/21/21 07:28 86 19 100 08/21/21 07:15 36.4 C L 86 18 110/71 100 08/21/21 07:00 36.4 C L 89 18 108/69 100 08/21/21 06:30 36.4 C L 90 18 100 08/21/21 06:15 36.4 C L 88 18 105/64 100 08/21/21 06:00 36.5 C 88 18 119/73 100 08/21/21 05:45 36.4 C L 88 18 119/79 100 08/21/21 05:30 36.4 C L 87 17 109/70 100 08/21/21 05:15 36.5 C 87 19 109/72 100 08/21/21 05:00 36.5 C 87 18 115/72 100 08/21/21 04:45 36.5 C 87 18 111/67 100 08/21/21 04:30 36.5 C 86 19 108/67 100 08/21/21 04:21 87 18 100 08/21/21 04:15 36.5 C 88 18 115/69 100 08/21/21 04:00 36.5 C 88 18 108/67 100 08/21/21 03:45 36.5 C 88 18 107/64 100 08/21/21 03:30 36.5 C 88 23 108/66 100 08/21/21 03:15 36.5 C 87 19 105/71 100 08/21/21 03:00 36.5 C 89 19 104/67 100 08/21/21 02:45 36.6 C 90 19 106/67 99 08/21/21 02:30 36.6 C 91 H 17 105/62 99 08/21/21 02:16 36.7 C 95 H 21 101/67 98 08/21/21 02:15 36.7 C 97 H 19 96 08/21/21 02:00 36.7 C 112 H 17 100 08/21/21 01:45 36.7 C 91 H 17 111/73 100 08/21/21 01:30 36.8 C 92 H 20 111/73 100 08/21/21 01:15 36.8 C 91 H 18 104/76 100 08/21/21 01:00 36.8 C 93 H 20 110/67 100 08/21/21 00:45 36.9 C 94 H 21 101/74 100 08/21/21 00:30 36.9 C 92 H 20 108/71 100 08/21/21 00:15 37.0 C 93 H 19 110/68 100 Laboratory Results 08/21/21 04:59 08/21/21 04:59 Coding Level of Care Code Critical Care 1st 30-74 mins Diagnoses Osteomyelitis M86.9 Septic shock A41.9; R65.21 OCTAVIO (acute kidney injury) N17.9 Acute urinary retention R33.8 Acute UTI N39.0 Metabolic encephalopathy G93.41 Time Spent (min) 36
--- NOTE | 2021-08-21 18:52 | Hospitalist Progress Note ---
Date of Service August 21, 2021 Assessment & Plan (1) Thoracic abscess: (2) Septic shock: (3) OCTAVIO (acute kidney injury): (4) Osteomyelitis: (5) Pleural effusion: (6) Respiratory failure: (7) Lactic acidosis: (8) Acute urinary retention: (9) Acute UTI: (10) Complication, blocked Medina catheter: (11) UTI (urinary tract infection): (12) Urinary retention: (13) Neurogenic bladder: (14) Obesity: (15) Hyperlipidemia: (16) Hypertension: (17) Hypothyroidism: (18) Osteoarthritis of hip: (19) Seizure disorder: (20) Paranoid schizophrenia, chronic condition: Plan: This is a 66-year-old gentleman with a history of left hip infection from MRSA (recently s/p IV vancomycin treatment), MRSA bacteremia, previous thoracic abscess, neurogenic bladder, hypertension, hyperlipidemia, seizure disorder, and paranoid schizophrenia who presented to [facility] by ambulance for evaluation of altered mental status and hypoxia, subsequently found to be hypotensive, hypoxic, and obtunded on arrival in the setting of recent colonoscopy and clogged urinary catheter, requiring emergent intubation, initiation of mechanical ventilation, and initiation of pressors -- all concerning for septic shock. Septic Shock Patient presented tachycardic, hypotensive, febrile w/ elevated pro-Richard (>20) and lactate (5) Source suspected urinary with blocked medina --Based on preliminary read of CT abdomen pelvis by stat rad, concern that there may be redevelopment of septic joint within the left hip - appreciate ortho evaluation --H/O discitis/thoracic abscess involving T10-T11 (see below) --No evidence of perforation on CT-A/P preliminary read (in setting of recent colonoscopy) Await urine cultures and blood cultures (has history of MRSA and ESBL UTI) - GNB on current urine and blood cultures therefore suspect urine as source with blocked medina prior to admission Currently requiring vasopressor support in ICU to maintain MAP over 65 - on norepi and vasopressin Continue IV fluid support, monitor urine output Continue broad-spectrum antibiotic coverage with Meropenem (Hx of ESBL) and Zyvox Ventilator Dependent Respiratory Failure On arrival, patient was noted to be hypoxic to the 60% range; he later became obtunded and did require emergent intubation for airway protection. He was initially acidotic and hypercapnic. No evidence of obvious consolidation or infectious process on chest CT/chest x- ray Per ICU: Currently requiring minimal vent settings, wean as able Follow-up ABGs per ICU management Acute Kidney Injury -- Cr baseline ~1 On arrival, patient noted to have BUN 31/Cr 2 Etiology is likely multifactorial in the setting of hypotension/septic shock, clogged Medina on arrival per ED provider -- which was since changed and is now draining urine Continue fluid resuscitation/pressors per ICU Monitor BMP and urine output, goal >0.5cc/kg/hr L Hip Effusion and Degeneration With previous history of MRSA septic arthritis within the left hip (likely from translocation of MRSA bacteremia); was previously deemed not to be surgical candidate. Recently finished IV vancomycin (per ED team - approx. 1 week ago?) CT abdomen/pelvis demonstrated: "progressive destruction of the left femoral acetabular joint with resorptive changes of the femoral head and acetabulum joint. 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 He was seen by Dr. Gibbs in consultation while hospitalized on 03/17, who did recommend referral to tertiary care facility. Interval history is unknown to me at time of admission Chest CT (STAT Rad) demonstrated significant implant irregularity within vertebral body at I05-1218, which is new from the previous exam Continue broad-spectrum antibiotics Consider consultation with spine surgery if indicated as work-up continues Leukopenia Patient noted to have leukopenia to 2.87 upon arrival; etiology of this is somewhat unclear at this time. May represent process secondary to ongoing sepsis and marrow progression Continue to monitor, continue broad-spectrum antibiotics If continues, may want to consider peripheral blood smear Neurogenic Bladder Follows with [facility] - suspected to be secondary to prior spinal infection Per outpatient notes, SP tube is considered in the future Does require chronic Medina catheterchanged upon arrival in the ED Seizure Disorder Patient with reported history of seizures, taking daily carbamazepine Carbamazepine currently on hold while n.p.o./intubated; if OGT inserted, may want to consider resumption when appropriate Paranoid schizophrenia/depression/mood disorder Hold home medications while n.p.o. Hypothyroidism Hold home levothyroxine while n.p.o. Hypertension Hold home antihypertensives in setting of septic shock/hypotension (metoprolol, Lasix) Code: Documentation referencing advanced directive indicates patient is FULL CODE Dispo: ICU Diet: N.p.o. PPX: SCDs -- pharmacological management per ICU team Admission and Anticipated Discharge Date Admission Date: August 20, 2021 Subjective Patient is intubated and sedated. Unable to get any history. Remains on Levophed and Vasopressin. Review of Systems Review of Systems: Unobtainable due to endotracheal tube Physical Exam Constitutional: WD/WN, vitals as above + mechanically ventilated; no acute distress ENMT: external ear and nose normal, oropharynx normal Mouth: oral mucous membranes not dry Respiratory: normal respiratory effort Auscultation: no diminished lung sounds, no crackles, no rales, no rhonchi and no wheezes Cardiovascular: Rate/Rhythm: regular rhythm and + tachycardic Heart Sounds: no murmur Extremities: + pedal edema (1+ pre-tibial b/l equal) Gastrointestinal (Abdomen): Inspection/Auscultation: abdomen not distended Percussion/Palpation: abdomen soft; abdomen nontender Skin: no rashes, warm and dry (no areas of cellulitis) Neurologic: + not awake (sedated) Results & Data Results & Data ([facility]) Vital Signs (Past 12 Hours) Vital Signs Temp Pulse Resp BP Pulse Ox 08/21/21 18:15 36.1 C L 99 H 15 124/67 100 08/21/21 18:01 36.0 C L 107 H 17 120/85 100 08/21/21 18:00 36.1 C L 102 H 15 100 08/21/21 17:45 36.0 C L 95 H 16 129/87 100 08/21/21 17:31 36.0 C L 97 H 16 131/79 100 08/21/21 17:15 36.1 C L 100 H 19 129/79 100 08/21/21 17:00 36.1 C L 94 H 13 108/56 L 100 08/21/21 16:45 36.2 C L 94 H 13 107/50 L 100 08/21/21 16:30 36.2 C L 95 H 18 100/52 L 100 08/21/21 16:15 36.2 C L 95 H 15 110/51 L 100 08/21/21 16:00 36.3 C L 95 H 15 102/53 L 100 08/21/21 15:45 36.3 C L 99 H 16 130/56 L 100 08/21/21 15:30 36.3 C L 100 H 18 104/69 100 08/21/21 15:12 88 20 100 08/21/21 15:01 36.3 C L 103 H 15 111/69 100 08/21/21 15:00 36.3 C L 103 H 13 100 08/21/21 14:46 36.3 C L 104 H 15 127/57 L 100 08/21/21 14:30 36.3 C L 102 H 15 125/70 100 08/21/21 14:15 36.3 C L 98 H 17 117/69 100 08/21/21 14:00 36.3 C L 98 H 17 119/70 100 08/21/21 13:45 36.3 C L 100 H 13 121/72 100 08/21/21 13:30 36.3 C L 101 H 16 119/77 100 08/21/21 13:15 36.3 C L 100 H 22 133/71 100 08/21/21 13:00 36.3 C L 97 H 18 112/77 100 08/21/21 12:45 36.3 C L 99 H 21 117/82 100 08/21/21 12:30 36.3 C L 95 H 15 112/65 99 08/21/21 12:15 36.3 C L 102 H 16 119/69 100 08/21/21 12:01 36.4 C L 104 H 23 111/60 100 08/21/21 12:00 36.4 C L 96 H 19 100 08/21/21 11:45 36.4 C L 100 H 14 117/68 100 08/21/21 11:30 36.4 C L 102 H 16 104/76 100 08/21/21 11:17 86 20 100 08/21/21 11:15 36.4 C L 102 H 15 111/65 100 08/21/21 11:00 36.4 C L 100 H 18 116/67 99 08/21/21 10:45 36.4 C L 100 H 15 118/76 99 08/21/21 10:30 36.4 C L 101 H 21 106/90 100 08/21/21 10:15 36.4 C L 103 H 9 L 105/68 90 08/21/21 10:00 36.4 C L 102 H 10 L 104/61 93 08/21/21 09:45 36.4 C L 100 H 9 L 106/64 100 08/21/21 09:31 36.4 C L 101 H 10 L 118/60 96 08/21/21 09:15 36.4 C L 96 H 9 L 100/74 100 08/21/21 09:00 36.4 C L 87 6 L 102/73 08/21/21 08:45 36.4 C L 89 17 106/70 08/21/21 08:30 36.4 C L 88 9 L 117/69 08/21/21 08:15 36.4 C L 87 18 116/72 08/21/21 08:00 36.4 C L 85 18 97/73 L 08/21/21 07:45 36.4 C L 86 18 113/69 08/21/21 07:30 36.4 C L 86 18 111/71 100 08/21/21 07:28 86 19 100 08/21/21 07:15 36.4 C L 86 18 110/71 100 08/21/21 07:00 36.4 C L 89 18 108/69 100 PG Care Time/CCT Total # of Minutes Spent Total Time Spent with Patient: Total time spent is greater than 50% in coordination of care (as documented) at patient's floor/unit and/or counseling patient: Coding Level of Care Code 00697 Subseq Hosp Care Lvl 2 Diagnoses Thoracic abscess J86.9 Septic shock A41.9; R65.21 OCTAVIO (acute kidney injury) N17.9 Osteomyelitis M86.9 Pleural effusion J90 Respiratory failure J96.01 Chronicity: acute Respiratory failure complication: hypoxia Lactic acidosis E87.2 Acute urinary retention R33.8 Acute UTI N39.0 Complication, blocked Medina catheter T83.091A Encounter type: initial encounter UTI (urinary tract infection) N39.0 Urinary retention R33.9 Neurogenic bladder N31.9 Obesity E66.9 Hyperlipidemia E78.5 Hypertension I10 Hypothyroidism E03.9 Osteoarthritis of hip M16.9 Seizure disorder G40.909 Paranoid schizophrenia, chronic condition F20.0 (1) Respiratory failure Chronicity: acute Respiratory failure complication: hypoxia Qualified Code(s): J96.01 - Acute respiratory failure with hypoxia (2) Complication, blocked Medina catheter Encounter type: initial encounter Qualified Code(s): T83.091A - Other mechanical complication of indwelling urethral catheter, initial encounter
[2021-08-22] MEDS ORDERED: PHARMACY GLYCEMIC MGMT CONSULT PRN (00:18)
[2021-08-22] MEDS ORDERED: GLUCOSE 40% GEL 15 GM TUBE PO PRN (00:18)
[2021-08-22] MEDS ORDERED: GLUCOSE 10 TABS/TUBE PO PRN (00:18)
[2021-08-22] MEDS ORDERED: DEXTROSE 50% 50 ML SYRINGE IV PRN (00:18)
[2021-08-22] MEDS ORDERED: GLUCAGON FOR INJ 1 MG VIAL SQ PRN (00:18)
[2021-08-22] MEDS ORDERED: CARBOHYDRATES FOR HYPOGLYCEMIA PO PRN (00:18)
[2021-08-22] MEDS: MEROPENEM 500 MG in SYRINGE 0 ML IV SCH ×2 (01:46→08:01)
[2021-08-22 05:22] LABS: Mean Corpuscular Hgb Conc 32.8 g/dL (32-36)
[2021-08-22 05:29] LABS: Hematocrit (blood only) 24.4 % (42-52); Mean Corpuscular Hemoglobin 33.6 pg (25-34); Mean Corpuscular Volume 102.5 fL (80-100); Mean Platelet Volume 10.6 fL (7.4-10.4); Platelet Count 57 K/uL (130-400); RDW Standard Deviation 59.3 fL (36.4-46.3); Red Blood Count 2.38 M/uL (4.7-6.1); White Blood Count 9.62 K/uL (4.8-10.8)
[2021-08-22] MEDS ORDERED: INSULIN ASPART PER UNIT SC SCH (06:00)
[2021-08-22 06:03] LABS: BUN Creatinine Ratio 36.1 (10-20); Calcium 7.7 mg/dl (8.5-10.1); Est GFR (African American) 73.9 ml/min; Est GFR (Non-African American) 63.7 ml/min; Magnesium 2.1 mg/dl (1.7-2.4); Phosphorus 3.4 mg/dl (2.5-4.9); Potassium 3.6 mmol/L (3.5-5.1)
[2021-08-22 06:05] LABS: Basophils # (auto) 0.01 K/uL (0-0.2); Basophils % (auto) 0.1 %; Dohle Bodies 1+; Eosinophils # (auto) 0.04 K/uL (0-0.5); Eosinophils % (auto) 0.4 %; Immature Granulocytes # (auto) 0.12 K/uL (0.00-0.02); Immature Granulocytes % (auto) 1.2 %; Lymphocytes # (auto) 0.25 K/uL (1.2-3.4); Lymphocytes % (auto) 2.6 %; Monocytes # (auto) 0.73 K/uL (0.11-0.59); Monocytes % (auto) 7.6 %; Neutrophils # (auto) 8.47 K/uL (1.4-6.5); Neutrophils % (auto) 88.1 %
[2021-08-22] MEDS: carBAMazepine 100 MG CHEW TAB PO SCH ×3 (06:26→17:28)
[2021-08-22 06:52] LABS: Estimated Average Glucose 80 mg/dl; Hemoglobin A1C 4.4 % (4.5-5.6)
[2021-08-22] MEDS: TIMOLOL MALEATE 0.5% OP SOLN 5 ML BTL OP SCH (08:01)
[2021-08-22] MEDS: SENNOSIDES 8.8 MG/5 ML UDC PO SCH (08:01)
[2021-08-22] MEDS: DOCUSATE SODIUM SYRUP 100 MG/10 ML UDC PO SCH ×2 (08:01→19:56)
--- NOTE | 2021-08-22 08:20 | Critical Care Progress Note ---
Date of Service August 22, 2021 Assessment & Plan (1) Osteomyelitis: (2) Septic shock: (3) OCTAVIO (acute kidney injury): (4) Acute urinary retention: (5) Acute UTI: (6) Metabolic encephalopathy: Plan: Reason Critically Ill: 66-year-old male presents to the ICU in septic shock with unknown source at this time, requiring mechanical ventilation and vasopressor support. Neuro - Sedation: None Cardiac - S/p septic shockpatient profoundly hypotensive requiring multiple vasopressors. - Elevated lactate and pro Richard and febrile, high suspicion for sepsis. See ID management below -Echo 03/20/21: Normal LV function with EF 55 to 60%, no valvular vegetation. No valvular disease -Troponin negative -Random cortisol 35 -Maintain maps greater than 65. Wean vasopressors as tolerated Respiratory - Hypoxic respiratory failurepatient was on 100% nonrebreather in the ED and was ultimately intubated due to unresponsiveness. He is on minimal vent settings at this time with PEEP of 5 and FiO2 30%. Extubated 08/21/21 GI - Get swallow eval today RENAL/LYTES - AKIcreatinine 2.0 with baseline 0.8 --> improving -Possible ATN secondary to hypotension versus postobstructive given block Gardner catheter -Avoid nephrotoxic medication, monitor BUNs/creatinine -Monitor routine BMPs. Replete electrolytes as indicated - Patient has chronic Gardner It was changed in the ER ENDO - No history of diabetes. ICU hyperglycemic protocol Hypothyroidcontinue Synthroid HEME - --New onset thrombocytopenia Likely sepsis induced Continue to monitor Monitor H&H ID - Sepsis with E. coli bacteremia, source likely urine -Blood cultures 08/19/2021 E. coli, sensitive to Rocephin Procalcitonin 21.06, COVID-19 PCR negative -Patient does have history of MRSA and E. coli ESBL UTI -Nasal MRSA negative - 08/20/2021 --Endplate irregularity at T8-T9 and T11-T11 Findings could be chronic discitis or osteomyelitis --Prophylaxis VTE: Heparin on hold due to thrombocytopenia GI: Protonix Lines: Right IJ 08/21, arm PICC discontinued 08/20/2021 positive Gardner, positive ETT Diet: Tube feeds Plan: In/out: -396, urine output 1040 We will repeat blood culture today Change meropenem to Rocephin DC daptomycin No need for arthrocentesis of the left hip given the low platelets and significant improvement in clinical status The sources urinary Start the patient on D5 half given the patient was hypoglycemic Swallow eval Get an ultrasound-guided peripheral line. Once we have it we can DC the TLC prior to downgrade Patient hemodynamically stable to be downgraded to medical floor Please note the above document was generated using voice recognition software. It may contain grammatical, syntax or spelling errors.Any formal questions or concerns about the content, text or information contained within the body of this dictation should be directly addressed to the provider for clarification. Admission and Anticipated Discharge Date Admission Date: August 20, 2021 Subjective Patient seen and examined at bedside. No acute distress, no adverse events overnight. Patient is following commands and answering all the questions appropriately He did complain of bilateral lower extremity pain Denies any abdominal pain, no nausea vomiting, no shortness of breath, no headache Review of Systems Review of Systems: All systems reviewed & are unremarkable except as noted in Subjective Physical Exam Physical Exam: Constitutional: No acute distress HEENT: PERRLA, EOMI Respiratory system: Decreased air entry bilaterally, no wheeze, rhonchi, minimal crackles bilaterally lower lobes CVS: S1-S2 positive, no murmurs or gallops Abdomen: Soft, nontender, nondistended, positive bowel sounds x4 Extremities: +2 pulses bilaterally radialis/ dorsalis pedis, no cyanosis, +2 ankle edema bilaterally more on the left side Shortened left lower extremity Neuro: Awake alert oriented to self and place Psych: Normal mood and affect G/U: Positive Gardner Skin: no rashes, warm and dry Lymphatic: no cervical or axillary lymphadenopathy Results & Data Results & Data ([facility]) Vital Signs (Past 12 Hours) Vital Signs Temp Pulse Resp BP Pulse Ox 08/22/21 08:00 88 08/22/21 06:30 36.1 C L 88 14 100 08/22/21 06:00 36.0 C L 88 14 147/88 H 100 08/22/21 05:30 36.1 C L 87 13 100 08/22/21 05:01 36.1 C L 88 15 144/88 H 100 08/22/21 05:00 36.1 C L 89 14 100 08/22/21 04:30 36.1 C L 84 12 100 08/22/21 04:00 36.1 C L 90 13 143/88 H 100 08/22/21 03:50 92 H 26 H 99 08/22/21 03:30 36.1 C L 94 H 14 100 08/22/21 03:00 36.0 C L 94 H 17 133/88 100 08/22/21 02:30 36.0 C L 92 H 14 99 08/22/21 02:01 35.9 C L 95 H 12 127/107 H 99 08/22/21 02:00 35.9 C L 96 H 12 98 08/22/21 01:30 35.8 C L 93 H 20 99 08/22/21 01:00 35.7 C L 88 14 152/85 H 100 08/22/21 00:30 35.6 C L 89 19 99 08/22/21 00:00 35.6 C L 86 12 135/79 99 08/21/21 23:30 35.6 C L 90 13 98 08/21/21 23:00 35.7 C L 87 12 124/83 97 08/21/21 22:30 35.8 C L 89 14 100 08/21/21 22:29 90 26 H 99 08/21/21 22:01 35.9 C L 101 H 17 124/75 99 08/21/21 22:00 35.9 C L 93 H 17 99 08/21/21 21:30 36.0 C L 90 15 100 08/21/21 21:05 35.9 C L 98 H 16 119/69 100 08/21/21 21:00 35.9 C L 96 H 21 100 08/21/21 20:45 36.0 C L 94 H 17 119/83 100 08/21/21 20:30 36.0 C L 92 H 9 L 134/80 100 Laboratory Results 08/22/21 04:59 08/22/21 04:59 Coding Level of Care Code 61884 Subseq Hosp Care Lvl 3 Diagnoses Osteomyelitis M86.9 Septic shock A41.9; R65.21 OCTAVIO (acute kidney injury) N17.9 Acute urinary retention R33.8 Acute UTI N39.0 Metabolic encephalopathy G93.41
[2021-08-22] MEDS: D5W AND 1/2NSS 1,000 ML IV SCH (08:55)
[2021-08-22] MEDS: NOREPINEPHRINE/D5W 8 MG/508 ML BAG IV SCH (09:00)
[2021-08-22] MEDS: PANTOprazole 40 MG in SYRINGE 0 ML IV SCH (12:41)
[2021-08-22] MEDS: cefTRIAXone SODIUM 2,000 MG in DEXTROSE 5% 50 ML IV SCH (14:07)
--- NOTE | 2021-08-22 15:32 | Hospitalist Progress Note ---
Date of Service August 22, 2021 Assessment & Plan (1) Septic shock: Plan: shock resolved, off pressors, BP stable actually examines edematous, will give Lasix tomorrow blood culture with E coli and urine culture with same E coli change to Rocephin, stop Meropenem and Dapto check CBC in AM, follow vitals downgrade to PCU (2) OCTAVIO (acute kidney injury): Plan: Cr is down to 1.1, was as high as 2.0 making urine via [facility] examines volume overloaded, give Lasix tomorrow (3) Respiratory failure: Plan: due to sepsis, was obtunded and needed intubated extubated on 08/21 when he was on PEEP 5 and FiO2 30% breathing well on room air today (4) Acute UTI: Plan: urine culture growing E coli, on Rocephin WBC normal and no fever, vitals stable (5) Pleural effusion: (6) Lactic acidosis: Plan: resolved due to sepsis (7) Acute urinary retention: Plan: medina in place (8) Complication, blocked Medina catheter: (9) Neurogenic bladder: (10) Obesity: (11) Hyperlipidemia: (12) Hypertension: Plan: BP stable (13) Hypothyroidism: (14) Osteoarthritis of hip: (15) Seizure disorder: (16) Paranoid schizophrenia, chronic condition: Plan: Admission and Anticipated Discharge Date Admission Date: August 20, 2021 Subjective patient doing well on room air today, breathing comfortably BP stable off pressors, d/w Dr. Caal, will move to [facility] status blood culture, urine culture with E coli, sensitive to Rocephin WBC is 9k, Hb down to 8.0, Cr is 1.1, K 3.6 he denies chest pain, abdominal pain, he ate today Review of Systems Review of Systems: All systems reviewed & are unremarkable except as noted in Subjective Constitutional: + fatigue and + weakness Musculoskeletal: + joint pain (left hip) and + muscle weakness Neurologic: + gait abnormality, + unsteadiness and + generalized weakness Physical Exam Physical Exam: General: well developed, obese male, edematous, no distress Neck: supple, trachea midline, normal thyroid Lungs: clear to auscultation bilaterally, normal respiratory effort, no accessory muscle use, no distress Heart: regular S1 and S2, no murmur, peripheral pulses normal, capillary refill normal, +2 edema bilaterally Abdomen: soft, NT, ND, + BS, no hepatomegaly, normal to percussion Extremities: normal in appearance, no cyanosis, no petechiae, strength is greatly diminished, cannot stand up or transfer Neuro: awake, cooperative, moves all extremities, no focal motor deficits, CN II-XII intact, sensation in extremities intact, normal speech Skin: warm, dry, no rash, normal turgor Psych: Awake, alert oriented x 3, euthymic affect Results & Data Results & Data ([facility]) Vital Signs (Past 12 Hours) Vital Signs Temp Pulse Resp BP Pulse Ox 08/22/21 11:00 88 11 L 08/22/21 10:00 36.4 C L 89 12 129/83 99 08/22/21 09:01 36.3 C L 91 H 13 143/103 H 97 08/22/21 09:00 36.3 C L 87 11 L 98 08/22/21 08:01 36.2 C L 88 15 124/73 100 08/22/21 08:00 36.2 C L 87 13 100 08/22/21 07:00 36.1 C L 87 13 141/83 H 100 08/22/21 06:30 36.1 C L 88 14 100 08/22/21 06:00 36.0 C L 88 14 147/88 H 100 08/22/21 05:30 36.1 C L 87 13 100 08/22/21 05:01 36.1 C L 88 15 144/88 H 100 08/22/21 05:00 36.1 C L 89 14 100 08/22/21 04:30 36.1 C L 84 12 100 08/22/21 04:00 36.1 C L 90 13 143/88 H 100 08/22/21 03:50 92 H 26 H 99 08/22/21 03:30 36.1 C L 94 H 14 100 Laboratory Results Laboratory Results - last 24 hr 08/22/21 08/22/21 08/22/21 00:33 04:59 04:59 WBC 9.62 RBC 2.38 L Hgb 8.0 L Hct 24.4 L MCV 102.5 H MCH 33.6 MCHC 32.8 RDW Std Deviation 59.3 H RDW Coeff of Peng 16.0 H Plt Count 57 L MPV 10.6 H Immature Gran % (Auto) 1.2 Neut % (Auto) 88.1 Lymph % (Auto) 2.6 Lake % (Auto) 7.6 Eos % (Auto) 0.4 Baso % (Auto) 0.1 Neut # (Auto) 8.47 H Lymph # (Auto) 0.25 L [place] # (Auto) 0.73 H Eos # (Auto) 0.04 Baso # (Auto) 0.01 Immature Gran # (Auto) 0.12 H Dohle Bodies 1+ Sodium 140 Potassium 3.6 Chloride 109 H Carbon Dioxide 25 Anion Gap 6 BUN 43 H Creatinine 1.19 D Est Cr Clr Drug Dosing 75.0 Est GFR ( Amer) 73.9 Est GFR (Non-Af Amer) 63.7 BUN/Creatinine Ratio 36.1 H Glucose 58 L POC Glucose 70 Estimat Average Glucose Hemoglobin A1c Calcium 7.7 L Phosphorus 3.4 D Magnesium 2.1 08/22/21 08/22/21 08/22/21 04:59 06:20 06:40 WBC RBC Hgb Hct MCV MCH MCHC RDW Std Deviation RDW Coeff of Peng Plt Count MPV Immature Gran % (Auto) Neut % (Auto) Lymph % (Auto) Lake % (Auto) Eos % (Auto) Baso % (Auto) Neut # (Auto) Lymph # (Auto) [place] # (Auto) Eos # (Auto) Baso # (Auto) Immature Gran # (Auto) Dohle Bodies Sodium Potassium Chloride Carbon Dioxide Anion Gap BUN Creatinine Est Cr Clr Drug Dosing Est GFR ( Amer) Est GFR (Non-Af Amer) BUN/Creatinine Ratio Glucose POC Glucose 61 L* 84 Estimat Average Glucose 80 Hemoglobin A1c 4.4 L Calcium Phosphorus Magnesium Microbiology 08/19/21 23:30 Urine,Clean Catch Urine Culture - Final Escherichia coli 08/19/21 22:18 Blood Aerobic Blood Culture - Preliminary Escherichia coli Gram negative bacilli 08/19/21 22:18 Blood Anaerobic Blood Culture - Preliminary Escherichia coli 08/19/21 22:15 Blood Aerobic Blood Culture - Preliminary Escherichia coli 08/19/21 22:15 Blood Anaerobic Blood Culture - Preliminary Escherichia coli Medications Administered Current Inpatient Medications Acetaminophen (Acetaminophen Susp 325 Mg/10.15 Ml Udc) 650 mg PO Q6H PRN PRN Reason: Fever Stop: 09/19/21 10:19 Last Admin: 08/20/21 11:48 Dose: 650 mg Documented by: Carbamazepine (Carbamazepine 100 Mg Chew Tab) 300 mg PO Q6 [facility] Stop: 09/19/21 11:59 Last Admin: 08/22/21 12:41 Dose: 300 mg Documented by: Dextrose (Dextrose 50% 50 Ml Syringe) 25 - 50 ml IV UD PRN; Protocol PRN Reason: Hypoglycemia Protocol Stop: 09/21/21 00:17 Last Admin: 08/22/21 06:26 Dose: 25 ml Documented by: Docusate Sodium (Docusate Sodium Syrup 100 Mg/10 Ml Udc) 100 mg PO BID K[facility]ODE Stop: 09/19/21 11:59 Last Admin: 08/22/21 08:01 Dose: 100 mg Documented by: Glucagon (Glucagon For Inj 1 Mg Vial) 1 mg SQ UD PRN; Protocol PRN Reason: Hypoglycemia Protocol Stop: 09/21/21 00:17 Glucose (Glucose 10 Tabs/Tube) 4 - 8 tabs PO UD PRN; Protocol PRN Reason: Hypoglycemia Protocol Stop: 09/21/21 00:17 Glucose (Glucose 40% Gel 15 Gm Tube) 15 - 30 gm PO UD PRN; Protocol PRN Reason: Hypoglycemia Protocol Stop: 09/21/21 00:17 Heparin Sodium (Porcine) (Heparin Sod 5,000 Unit/0.5 Ml Vial) 5,000 units SQ Q12 K[facility]ODE Stop: 09/19/21 20:59 Last Admin: 08/20/21 20:11 Dose: 5,000 units Documented by: Pantoprazole Sodium 40 mg/ (Syringe) 10 mls @ 5 mls/min IV DAILY@1100 [facility] Stop: 09/19/21 10:59 Last Admin: 08/22/21 12:41 Dose: 5 mls/min Documented by: Dextrose/Sodium Chloride (D5w And 1/2nss) 1,000 mls @ 50 mls/hr IV .Q20H [facility] Stop: 09/21/21 08:14 Last Admin: 08/22/21 08:55 Dose: 50 mls/hr Documented by: Ceftriaxone Sodium 2,000 mg/ (Dextrose) 70 mls @ 140 mls/hr IV DAILY@1400 K[facility]; Protocol Stop: 09/05/21 13:59 Last Infusion: 08/22/21 14:37 Dose: Infused Documented by: Miscellaneous (Carbohydrates For Hypoglycemia ) 15 - 30 gm PO UD PRN PRN Reason: Hypoglycemia Protocol Stop: 09/21/21 00:17 Timolol Maleate (Timolol Maleate 0.5% Op Soln 5 Ml Btl) 1 drops OP DAILY [facility] Stop: 09/19/21 08:59 Last Admin: 08/22/21 08:01 Dose: 1 drops Documented by: PG Care Time/CCT Total # of Minutes Spent Total Time Spent with Patient: Total time spent is greater than 50% in coordination of care (as documented) at patient's floor/unit and/or counseling patient: Coding Level of Care Code 25748 Subseq Hosp Care Lvl 3 Diagnoses Septic shock A41.9; R65.21 OCTAVIO (acute kidney injury) N17.9 Pleural effusion J90 Respiratory failure J96.01 Chronicity: acute Respiratory failure complication: hypoxia Lactic acidosis E87.2 Acute urinary retention R33.8 Acute UTI N39.0 Complication, blocked [facility] catheter T83.091A Encounter type: initial encounter Neurogenic bladder N31.9 Obesity E66.9 Hyperlipidemia E78.5 Hypertension I10 Hypothyroidism E03.9 Osteoarthritis of hip M16.9 Seizure disorder G40.909 Paranoid schizophrenia, chronic condition F20.0 (1) Respiratory failure Chronicity: acute Respiratory failure complication: hypoxia Qualified Code(s): J96.01 - Acute respiratory failure with hypoxia (2) Complication, blocked [facility] catheter Encounter type: initial encounter Qualified Code(s): T83.091A - Other mechanical complication of indwelling urethral catheter, initial encounter
--- NOTE | 2021-08-22 17:33 | Progress Notes ---
DATE OF SERVICE: 08/22/2021. He is much improved. He has been extubated. He is sitting in a chair and is able to converse. He r ecalls that his left hip was excised at [facility] but they did not put anything back in. He is not o ffering any significant complaints relative to the left hip. He does note that his back is a little bit sore. He can slightly move his left ankle. Logrolling of the left leg elicits no pain response. The left leg is perhaps mildly swollen, but he has no erythema or tenderness to palpation. I think given his improvement and his cultures, his sepsis was likely secondary to E. coli coming from a uri nary source. At this time, I do not think it is imperative that any further diagnostic tests or aspi rations be done on the left hip. Job ID: [id number]
[2021-08-22] MEDS: ATORVASTATIN 10 MG TAB PO SCH (19:56)
[2021-08-23] MEDS: carBAMazepine 100 MG CHEW TAB PO SCH ×4 (00:17→16:40)
[2021-08-23 04:49] LABS: Hematocrit (blood only) 23.2 % (42-52); Hemoglobin 7.9 g/dL (14.0-18.0); Mean Corpuscular Hemoglobin 34.2 pg (25-34); Mean Corpuscular Hgb Conc 34.1 g/dL (32-36); Mean Corpuscular Volume 100.4 fL (80-100); RDW Coefficient of Variation 15.7 % (11.5-14.5); RDW Standard Deviation 57.8 fL (36.4-46.3); Red Blood Count 2.31 M/uL (4.7-6.1); White Blood Count 8.52 K/uL (4.8-10.8)
[2021-08-23 05:26] LABS: Creatinine Clr Calc Pharmacy 114.5 ml/min; Est GFR (African American) 109.8 ml/min; Est GFR (Non-African American) 94.7 ml/min
[2021-08-23 05:30] LABS: Mean Platelet Volume 11.4 fL (7.4-10.4); Platelet Count 64 K/uL (130-400)
[2021-08-23 05:33] LABS: BUN Creatinine Ratio 43.6 (10-20); Basophils # (auto) 0.01 K/uL (0-0.2); Basophils % (auto) 0.1 %; Calcium 7.7 mg/dl (8.5-10.1); Dohle Bodies 1+; Eosinophils # (auto) 0.09 K/uL (0-0.5); Eosinophils % (auto) 1.1 %; Immature Granulocytes # (auto) 0.16 K/uL (0.00-0.02); Immature Granulocytes % (auto) 1.9 %; Lymphocytes # (auto) 0.47 K/uL (1.2-3.4); Lymphocytes % (auto) 5.5 %; Magnesium 1.9 mg/dl (1.7-2.4); Monocytes # (auto) 0.45 K/uL (0.11-0.59); Monocytes % (auto) 5.3 %; Neutrophils # (auto) 7.34 K/uL (1.4-6.5); Neutrophils % (auto) 86.1 %; Phosphorus 2.4 mg/dl (2.5-4.9); Potassium 3.1 mmol/L (3.5-5.1)
[2021-08-23] MEDS: D5W AND 1/2NSS 1,000 ML IV SCH (05:37)
[2021-08-23] MEDS: LEVOTHYROXINE SODIUM 25 MCG TABLET PO SCH (05:38)
[2021-08-23] MEDS: DOCUSATE SODIUM SYRUP 100 MG/10 ML UDC PO SCH ×2 (07:40→20:56)
[2021-08-23] MEDS: METOPROLOL TARTRATE 50 MG TAB PO SCH ×2 (07:40→20:58)
[2021-08-23] MEDS: ASPIRIN 81 MG ECTAB PO SCH (07:40)
[2021-08-23] MEDS: TIMOLOL MALEATE 0.5% OP SOLN 5 ML BTL OP SCH (07:42)
[2021-08-23] MEDS: ARIPiprazole 5 MG TAB PO SCH (07:42)
[2021-08-23] MEDS: VENLAFAXINE HCL XR 150 MG CAPXR PO SCH (07:42)
[2021-08-23] MEDS: VENLAFAXINE HCL XR 75 MG CAPXR PO SCH (07:43)
[2021-08-23] MEDS ORDERED: FUROSEMIDE 40 MG TAB PO SCH (09:00)
[2021-08-23] MEDS ORDERED: MAGNESIUM SULFATE / D5W 1 GM/100 ML BAG IV ONE (09:26)
[2021-08-23] MEDS ORDERED: POTASSIUM PHOS 3 MMOL/1 ML INFUSION IV STA (09:26)
--- NOTE | 2021-08-23 09:27 | Hospitalist Progress Note ---
Date of Service August 23, 2021 Assessment & Plan (1) Septic shock: Plan: shock resolved, off pressors, BP stable actually examines edematous, back on Lasix 40mg PO daily today blood culture with E coli and urine culture with same E coli now blood culture with 2nd E coli and Proteus continue Rocephin as WBC normal and no fever repeat blood cultures drawn 08/23, follow up results check CBC in AM, follow vitals (2) OCTAVIO (acute kidney injury): Plan: Cr is down to 0.78, was as high as 2.0 making urine via [facility] examines volume overloaded, continue Lasix 40mg PO daily, will increase to BID, follow Cr (3) Respiratory failure: Plan: due to sepsis, was obtunded and needed intubated extubated on 08/21 when he was on PEEP 5 and FiO2 30% breathing well on room air the past two days (4) Anemia: Plan: Hb is 7.9, no signs of bleeding, fecal occult ordered but no BM cells are macrocytic, check folic acid and b12 repeat BMP in AM (5) Hypokalemia: Plan: 3.[address] on KCl 20 TID as he will be on Lasix 40mg BID BMP in AM (6) Acute UTI: Plan: urine culture growing E coli, on Rocephin WBC normal and no fever, vitals stable (7) Pleural effusion: (8) Lactic acidosis: Plan: resolved due to sepsis (9) Acute urinary retention: Plan: medina in place (10) Complication, blocked Medina catheter: (11) Neurogenic bladder: (12) Obesity: (13) Hyperlipidemia: (14) Hypertension: Plan: BP stable (15) Hypothyroidism: (16) Osteoarthritis of hip: (17) Seizure disorder: (18) Paranoid schizophrenia, chronic condition: Plan: continue Rocephin, follow up repeat blood cultures he is from [facility], will return their when medically stable Admission and Anticipated Discharge Date Admission Date: August 20, 2021 Subjective reviewed blood cultures, growing E coli and Proteus as well as a second E coli in one set thus far, E coli and Proteus sensitive to Rocephin, no fever, WBC normal and vitals stable, repeat blood cultures this morning Hb is 7.9, no signs of bleeding, plts 64k K is 3.1, Cr 0.78, phos 2.4, Mag 1.9, will replace electrolytes Review of Systems Review of Systems: All systems reviewed & are unremarkable except as noted in Subjective Constitutional: + weakness Cardiovascular: + edema Musculoskeletal: + muscle weakness (cannot stand or transfer) Physical Exam Physical Exam: General: well developed, obese male, edematous, no distress Neck: supple, trachea midline, normal thyroid Lungs: clear to auscultation bilaterally, normal respiratory effort, no accessory muscle use, no distress Heart: regular S1 and S2, no murmur, peripheral pulses normal, capillary refill normal, +2 edema bilaterally Abdomen: soft, NT, ND, + BS, no hepatomegaly, normal to percussion Extremities: normal in appearance, no cyanosis, no petechiae, strength is greatly diminished, cannot stand up or transfer (requires Santiago lift) Neuro: awake, cooperative, moves all extremities, no focal motor deficits, CN II-XII intact, sensation in extremities intact, normal speech Skin: warm, dry, no rash, normal turgor Psych: Awake, alert oriented x 3, euthymic affect Results & Data Results & Data ([facility]) Vital Signs (Past 12 Hours) Vital Signs Temp Pulse Resp BP Pulse Ox 08/23/21 08:00 36.6 C 08/23/21 07:37 86 16 127/80 96 08/23/21 06:00 80 13 90 08/23/21 04:00 90 11 L 100 08/23/21 02:00 84 10 L 97 08/23/21 00:00 86 15 130/62 100 08/22/21 22:00 86 14 100 Laboratory Results Laboratory Results - last 24 hr 08/23/21 08/23/21 04:21 04:21 WBC 8.52 RBC 2.31 L Hgb 7.9 L Hct 23.2 L MCV 100.4 H MCH 34.2 H MCHC 34.1 RDW Std Deviation 57.8 H RDW Coeff of Peng 15.7 H Plt Count 64 L MPV 11.4 H Immature Gran % (Auto) 1.9 Neut % (Auto) 86.1 Lymph % (Auto) 5.5 [place] % (Auto) 5.3 Eos % (Auto) 1.1 Baso % (Auto) 0.1 Neut # (Auto) 7.34 H Lymph # (Auto) 0.47 L [place] # (Auto) 0.45 Eos # (Auto) 0.09 Baso # (Auto) 0.01 Immature Gran # (Auto) 0.16 H Dohle Bodies 1+ Sodium 141 Potassium 3.1 L Chloride 110 H Carbon Dioxide 24 Anion Gap 7 BUN 34 H Creatinine 0.78 D Est Cr Clr Drug Dosing 114.5 Est GFR ( Amer) 109.8 Est GFR (Non-Af Amer) 94.7 BUN/Creatinine Ratio 43.6 H Glucose 72 Calcium 7.7 L Phosphorus 2.4 L D Magnesium 1.9 Total Creatine Kinase 143 Microbiology 08/19/21 22:18 Blood Aerobic Blood Culture - Final Escherichia coli Proteus mirabilis 08/19/21 22:18 Blood Anaerobic Blood Culture - Final Escherichia coli 08/19/21 22:15 Blood Aerobic Blood Culture - Final Escherichia coli Escherichia coli#2 08/19/21 22:15 Blood Anaerobic Blood Culture - Final Escherichia coli Escherichia coli#2 08/19/21 23:30 Urine,Clean Catch Urine Culture - Final Escherichia coli Medications Administered Current Inpatient Medications Acetaminophen (Acetaminophen Susp 325 Mg/10.15 Ml Udc) 650 mg PO Q6H PRN PRN Reason: Fever Stop: 09/19/21 10:19 Last Admin: 08/20/21 11:48 Dose: 650 mg Documented by: Aripiprazole (A[facility]iprazole 5 Mg Tab) [facility] [place]: 09/22/21 08:59 Last Admin: 08/23/21 07:42 Dose: 5 mg Documented by: Aspirin (Aspirin 81 Mg Ectab) 81 mg PO DAILY [facility] Stop: 09/22/21 08:59 Last Admin: 08/23/21 07:40 Dose: 81 mg Documented by: Atorvastatin Calcium (Atorvastatin 10 Mg Tab) 10 mg PO HS [facility] Stop: 09/21/21 20:59 Last Admin: 08/22/21 19:56 Dose: 10 mg Documented by: Carbamazepine (Carbamazepine 100 Mg Chew Tab) 300 mg PO Q6 [facility] Stop: 09/19/21 11:59 Last Admin: 08/23/21 05:38 Dose: 300 mg Documented by: Dextrose (Dextrose 50% 50 Ml Syringe) 25 - 50 ml IV UD PRN; Protocol PRN Reason: Hypoglycemia Protocol Stop: 09/21/21 00:17 Last Admin: 08/22/21 06:26 Dose: 25 ml Documented by: Docusate Sodium (Docusate Sodium Syrup 100 Mg/10 Ml Udc) 100 mg PO BID [facility] Stop: 09/19/21 11:59 Last Admin: 08/23/21 07:40 Dose: 100 mg Documented by: Furosemide (Furosemide 40 Mg Tab) 40 mg PO DAILY [facility] Stop: 09/22/21 08:59 Last Admin: 08/23/21 07:40 Dose: 40 mg Documented by: Glucagon (Glucagon For Inj 1 Mg Vial) 1 mg SQ UD PRN; Protocol PRN Reason: Hypoglycemia Protocol Stop: 09/21/21 00:17 Glucose (Glucose 10 Tabs/Tube) 4 - 8 tabs PO UD PRN; Protocol PRN Reason: Hypoglycemia Protocol Stop: 09/21/21 00:17 Glucose (Glucose 40% Gel 15 Gm Tube) 15 - 30 gm PO UD PRN; Protocol PRN Reason: Hypoglycemia Protocol Stop: 09/21/21 00:17 Pantoprazole Sodium 40 mg/ (Syringe) 10 mls @ 5 mls/min IV DAILY@1100 [facility] Stop: 09/19/21 10:59 Last Admin: 08/22/21 12:41 Dose: 5 mls/min Documented by: Dextrose/Sodium Chloride (D5w And 1/2nss) 1,000 mls @ 50 mls/hr IV .Q20H [facility] Stop: 09/21/21 08:14 Last Infusion: 08/23/21 08:05 Dose: 0 mls/hr Documented by: Ceftriaxone Sodium 2,000 mg/ (Dextrose) 70 mls @ 140 mls/hr IV DAILY@1400 [facility]; Protocol Stop: 09/05/21 13:59 Last Infusion: 08/22/21 14:37 Dose: Infused Documented by: Magnesium Sulfate/Dextrose (Magnesium Sulfate / D5w) 1 gm in 100 mls @ 50 mls/hr IV ONE ONE Stop: 08/23/21 11:25 Levothyroxine Sodium (Levothyroxine Sodium 25 Mcg Tablet) 25 mcg PO DAILYBB [facility] Stop: 09/22/21 06:29 Last Admin: 08/23/21 05:38 Dose: 25 mcg Documented by: Metoprolol Tartrate (Metoprolol Tartrate 50 Mg Tab) 50 mg PO BID [facility] Stop: 09/22/21 08:59 Last Admin: 08/23/21 07:40 Dose: 50 mg Documented by: Miscellaneous (Carbohydrates For Hypoglycemia ) 15 - 30 gm PO UD PRN PRN Reason: Hypoglycemia Protocol Stop: 09/21/21 00:17 Potassium Chloride (Potassium Chloride Crtab 20 Meq Tabcr) 20 meq PO TID [facility] Stop: 09/22/21 08:59 Potassium Phosphate (Potassium Phos 3 Mmol/1 Ml Infusion) 21 mmol IV NOW STA Stop: 08/23/21 09:27 Timolol Maleate (Timolol Maleate 0.5% Op Soln 5 Ml Btl) 1 drops OP DAILY [facility] Stop: 09/19/21 08:59 Last Admin: 08/23/21 07:42 Dose: 1 drops Documented by: Venlafaxine HCl (Venlafaxine Hcl Xr 150 Mg Capxr) 150 mg PO QAM [facility] Stop: 09/22/21 08:59 Last Admin: 08/23/21 07:42 Dose: 150 mg Documented by: Venlafaxine HCl (Venlafaxine Hcl Xr 75 Mg Capxr) 75 mg PO QAM [facility] Stop: 09/22/21 08:59 Last Admin: 08/23/21 07:43 Dose: 75 mg Documented by: PG Care Time/CCT Total # of Minutes Spent Total Time Spent with Patient: Total time spent is greater than 50% in coordination of care (as documented) at patient's floor/unit and/or counseling patient: Coding Level of Care Code 34538 Subseq Hosp Care Lvl 3 Diagnoses Septic shock A41.9; R65.21 OCTAVIO (acute kidney injury) N17.9 Respiratory failure J96.01 Chronicity: acute Respiratory failure complication: hypoxia Acute UTI N39.0 Pleural effusion J90 Lactic acidosis E87.2 Acute urinary retention R33.8 Complication, blocked [place] catheter T83.091A Encounter type: initial encounter Neurogenic bladder N31.9 Obesity E66.9 Hyperlipidemia E78.5 Hypertension I10 Hypothyroidism E03.9 Osteoarthritis of hip M16.9 Seizure disorder G40.909 Paranoid schizophrenia, chronic condition F20.0 Anemia D64.9 Anemia type: unspecified type Hypokalemia E87.6 (1) Respiratory failure Chronicity: acute Respiratory failure complication: hypoxia Qualified Code(s): J96.01 - Acute respiratory failure with hypoxia (2) Complication, blocked [facility] catheter Encounter type: initial encounter Qualified Code(s): T83.091A - Other mechanical complication of indwelling urethral catheter, initial encounter (3) Anemia Anemia type: unspecified type Qualified Code(s): D64.9 - Anemia, unspecified
[2021-08-23] MEDS ORDERED: POTASSIUM PHOSPHATE 21 MMOL in SODIUM CHLORIDE 0.9% 500 ML IV ONE (09:45)
[2021-08-23] MEDS: POTASSIUM CHLORIDE CRTAB 20 MEQ TABCR PO SCH ×3 (11:25→20:58)
[2021-08-23] MEDS: PANTOprazole 40 MG in SYRINGE 0 ML IV SCH (11:26)
[2021-08-23] MEDS: cefTRIAXone SODIUM 2,000 MG in DEXTROSE 5% 50 ML IV SCH (13:14)
[2021-08-23] MEDS: ATORVASTATIN 10 MG TAB PO SCH (20:56)
[2021-08-23] MEDS: FUROSEMIDE 40 MG TAB PO SCH (20:57)
[2021-08-24] MEDS: carBAMazepine 100 MG CHEW TAB PO SCH ×5 (01:05→23:41)
[2021-08-24 05:01] LABS: Hematocrit (blood only) 25.5 % (42-52); Hemoglobin 8.5 g/dL (14.0-18.0); Mean Corpuscular Hemoglobin 34.1 pg (25-34); Mean Corpuscular Hgb Conc 33.3 g/dL (32-36); Mean Corpuscular Volume 102.4 fL (80-100); RDW Coefficient of Variation 15.4 % (11.5-14.5); Red Blood Count 2.49 M/uL (4.7-6.1); White Blood Count 7.17 K/uL (4.8-10.8)
[2021-08-24] MEDS: LEVOTHYROXINE SODIUM 25 MCG TABLET PO SCH (05:26)
[2021-08-24 06:24] LABS: Mean Platelet Volume 10.8 fL (7.4-10.4); Platelet Count 82 K/uL (130-400); Reticulocyte % 0.9 % (0.5-2.0); Reticulocytes # 0.02 10^6/uL (0.02-0.10)
[2021-08-24 06:54] LABS: Folate (Folic Acid) 17.76 ng/ml (>5.38)
[2021-08-24 06:55] LABS: Vitamin B12 > 1500 pg/ml (211-911)
[2021-08-24 07:21] LABS: BUN Creatinine Ratio 37.3 (10-20); Calcium 7.8 mg/dl (8.5-10.1); Creatinine Clr Calc Pharmacy 119.2 ml/min; Est GFR (African American) 111.6 ml/min; Est GFR (Non-African American) 96.3 ml/min; Ferritin 339.1 ng/ml (8-388); Magnesium 1.7 mg/dl (1.7-2.4); Phosphorus 3.5 mg/dl (2.5-4.9)
[2021-08-24] MEDS: DOCUSATE SODIUM SYRUP 100 MG/10 ML UDC PO SCH ×2 (07:39→20:08)
[2021-08-24] MEDS: METOPROLOL TARTRATE 50 MG TAB PO SCH ×2 (08:04→20:07)
[2021-08-24] MEDS: FUROSEMIDE 40 MG TAB PO SCH ×2 (08:04→20:07)
[2021-08-24] MEDS: TIMOLOL MALEATE 0.5% OP SOLN 5 ML BTL OP SCH (08:05)
[2021-08-24] MEDS: VENLAFAXINE HCL XR 75 MG CAPXR PO SCH (08:05)
[2021-08-24] MEDS: VENLAFAXINE HCL XR 150 MG CAPXR PO SCH (08:05)
[2021-08-24] MEDS: POTASSIUM CHLORIDE CRTAB 20 MEQ TABCR PO SCH ×3 (08:05→20:08)
[2021-08-24] MEDS: ARIPiprazole 5 MG TAB PO SCH (08:05)
[2021-08-24] MEDS: ASPIRIN 81 MG ECTAB PO SCH (08:05)
[2021-08-24] MEDS ORDERED: POTASSIUM CHLORIDE CRTAB 20 MEQ TABCR PO ONE (10:15)
--- NOTE | 2021-08-24 10:42 | Hospitalist Progress Note ---
Date of Service August 24, 2021 Assessment & Plan (1) Septic shock: Plan: shock resolved, off pressors, BP stable actually examines edematous, continue Lasix 40mg PO daily today blood culture with E coli and urine culture with same E coli now blood culture with 2nd E coli and Proteus continue Rocephin as WBC normal and no fever repeat blood cultures drawn 08/23, follow up results: still preliminary negative for now. Vitals and CBC are normal. will transfer to med/surg (2) OCTAVIO (acute kidney injury): Plan: Cr is down to 0.78, was as high as 2.0 making urine via [facility] examines volume overloaded, continue Lasix 40mg PO daily, will increase to BID, follow Cr (3) Respiratory failure: Plan: due to sepsis, was obtunded and needed intubated extubated on 08/21 when he was on PEEP 5 and FiO2 30% breathing well on room air the past two days (4) Anemia: Plan: Hb is 7.9, no signs of bleeding, fecal occult ordered but no BM cells are macrocytic, check folic acid and b12 Hemoglobin improved today 08/24 (5) Hypokalemia: Plan: remains hypokaelmic, will increase to 40 meq PO TID for 3 doses (6) Acute UTI: Plan: urine culture growing E coli, on Rocephin WBC normal and no fever, vitals stable (7) Pleural effusion: (8) Lactic acidosis: Plan: resolved due to sepsis (9) Acute urinary retention: Plan: medina in place (10) Complication, blocked Med[place] catheter: (11) Neurogenic bladder: (12) Obesity: (13) Hyperlipidemia: (14) Hypertension: Plan: BP stable (15) Hypothyroidism: (16) Osteoarthritis of hip: (17) Seizure disorder: (18) Paranoid schizophrenia, chronic condition: Plan: continue Rocephin, follow up repeat blood cultures he is from [facility], will return their when medically stable Admission and Anticipated Discharge Date Admission Date: August 20, 2021 Subjective 66 yo male reports no new complaints today. He continues to feel somewhat weak, but denies any fever or chills. He reports he had a normal sized BM. Review of Systems Review of Systems: All systems reviewed & are unremarkable except as noted in HPI & below Physical Exam Physical Exam: General: well developed, obese male, edematous, no distress Neck: supple, trachea midline, normal thyroid Lungs: clear to auscultation bilaterally, normal respiratory effort, no accessory muscle use, no distress Heart: regular S1 and S2, no murmur, peripheral pulses normal, capillary refill normal, +2 edema bilaterally Abdomen: soft, NT, ND, + BS, no hepatomegaly, normal to percussion Extremities: normal in appearance, no cyanosis, no petechiae, strength is greatly diminished, cannot stand up or transfer (requires Santiago lift) Neuro: awake, cooperative, moves all extremities, no focal motor deficits, CN II-XII intact, sensation in extremities intact, normal speech Skin: warm, dry, no rash, normal turgor Psych: Awake, alert oriented x 3, euthymic affect Results & Data Results & Data ([facility]) Vital Signs (Past 12 Hours) Vital Signs Temp Pulse Pulse Resp BP BP Pulse Ox 08/24/21 08:00 77 08/24/21 07:30 36.9 C 92 H 14 145/93 H 100 08/24/21 04:00 36.9 C 75 15 136/76 95 08/24/21 02:00 74 14 08/24/21 01:00 77 15 08/24/21 00:00 36.9 C 73 19 108/69 98 08/23/21 23:00 73 15 PG Care Time/CCT Total # of Minutes Spent Total Time Spent with Patient: Total time spent is greater than 50% in coordination of care (as documented) at patient's floor/unit and/or counseling patient: Coding Level of Care Code 55078 Subseq Hosp Care Lvl 3 Diagnoses Septic shock A41.9; R65.21 OCTAVIO (acute kidney injury) N17.9 Respiratory failure J96.01 Chronicity: acute Respiratory failure complication: hypoxia Anemia D64.9 Anemia type: unspecified type Hypokalemia E87.6 Acute UTI N39.0 Pleural effusion J90 Lactic acidosis E87.2 Acute urinary retention R33.8 Complication, blocked Med[place] catheter T83.091A Encounter type: initial encounter Neurogenic bladder N31.9 Obesity E66.9 Hyperlipidemia E78.5 Hypertension I10 Hypothyroidism E03.9 Osteoarthritis of hip M16.9 Seizure disorder G40.909 Paranoid schizophrenia, chronic condition F20.0 Time Spent (min) 35 (1) Anemia Anemia type: unspecified type Qualified Code(s): D64.9 - Anemia, unspecified (2) Respiratory failure Chronicity: acute Respiratory failure complication: hypoxia Qualified C ode(s): J96.01 - Acute respiratory failure with hypoxia (3) Complication, blocked Med[place] catheter Encounter type: initial encounter Qualified Code(s): T83.091A - Other mechanical complication of indwelling urethral catheter, initial encounter
[2021-08-24] MEDS: PANTOprazole 40 MG in SYRINGE 0 ML IV SCH (11:19)
[2021-08-24] MEDS: cefTRIAXone SODIUM 2,000 MG in DEXTROSE 5% 50 ML IV SCH (13:28)
[2021-08-24] MEDS ORDERED: POTASSIUM CHLORIDE CRTAB 20 MEQ TABCR PO SCH (14:00)
[2021-08-24] MEDS: ATORVASTATIN 10 MG TAB PO SCH (20:08)
[2021-08-25] MEDS: LEVOTHYROXINE SODIUM 25 MCG TABLET PO SCH (05:45)
[2021-08-25] MEDS: carBAMazepine 100 MG CHEW TAB PO SCH ×4 (05:46→23:04)
[2021-08-25 06:17] LABS: Hematocrit (blood only) 24.4 % (42-52); Mean Corpuscular Hemoglobin 33.5 pg (25-34); Mean Corpuscular Hgb Conc 32.8 g/dL (32-36); Mean Corpuscular Volume 102.1 fL (80-100); Mean Platelet Volume 11.4 fL (7.4-10.4); Platelet Count 106 K/uL (130-400); RDW Coefficient of Variation 15.3 % (11.5-14.5); RDW Standard Deviation 56.6 fL (36.4-46.3); Red Blood Count 2.39 M/uL (4.7-6.1); White Blood Count 6.29 K/uL (4.8-10.8)
[2021-08-25 06:39] LABS: BUN Creatinine Ratio 35.8 (10-20); Calcium 7.7 mg/dl (8.5-10.1); Creatinine Clr Calc Pharmacy 132.8 ml/min; Est GFR (African American) 116.9 ml/min; Est GFR (Non-African American) 100.8 ml/min; Potassium 3.2 mmol/L (3.5-5.1)
[2021-08-25] MEDS: VENLAFAXINE HCL XR 150 MG CAPXR PO SCH (08:49)
[2021-08-25] MEDS: POTASSIUM CHLORIDE CRTAB 20 MEQ TABCR PO SCH ×3 (08:50→20:39)
[2021-08-25] MEDS: ASPIRIN 81 MG ECTAB PO SCH (08:51)
[2021-08-25] MEDS: FUROSEMIDE 40 MG TAB PO SCH ×2 (08:51→20:39)
[2021-08-25] MEDS: METOPROLOL TARTRATE 50 MG TAB PO SCH ×2 (08:51→20:39)
[2021-08-25] MEDS: ARIPiprazole 5 MG TAB PO SCH (08:52)
[2021-08-25] MEDS: VENLAFAXINE HCL XR 75 MG CAPXR PO SCH (08:52)
[2021-08-25] MEDS: DOCUSATE SODIUM SYRUP 100 MG/10 ML UDC PO SCH ×2 (08:53→20:40)
[2021-08-25] MEDS: TIMOLOL MALEATE 0.5% OP SOLN 5 ML BTL OP SCH (08:53)
--- NOTE | 2021-08-25 09:43 | Hospitalist Progress Note ---
Date of Service August 25, 2021 Assessment & Plan (1) Septic shock: Plan: shock resolved, off pressors, BP stable actually examines edematous, continue Lasix 40mg PO daily today blood culture with E coli and urine culture with same E coli now blood culture with 2nd E coli and Proteus continue Rocephin as WBC normal and no fever repeat blood cultures drawn 08/23, follow up results: still preliminary negative for now. If remains negative on 08/26, will discharge. May still consider discharge if afebrile. May consider repeating culture in AM. Likely plan is to switch to augmentin at discharge. (2) OCTAVIO (acute kidney injury): Plan: Cr is down to 0.78, was as high as 2.0 making urine via medina examines volume overloaded, continue Lasix 40mg PO daily, will increase to BID, follow Cr (3) Respiratory failure: Plan: due to sepsis, was obtunded and needed intubated extubated on 08/21 when he was on PEEP 5 and FiO2 30% breathing well on room air the past two days (4) Anemia: Plan: Hb is 7.9, no signs of bleeding, fecal occult ordered but no BM cells are macrocytic, check folic acid and b12 Hemoglobin has remained stable. (5) Hypokalemia: Plan: remains hypokaelmic, will increase to 40 meq PO TID for 3 doses; will increase potassium today to 40 mew PO TID. may consider nephro consult. (6) Acute UTI: Plan: urine culture growing E coli, on Rocephin WBC normal and no fever, vitals stable (7) Pleural effusion: (8) Lactic acidosis: Plan: resolved due to sepsis (9) Acute urinary retention: Plan: medina in place (10) Complication, blocked Medina catheter: (11) Neurogenic bladder: (12) Obesity: (13) Hyperlipidemia: (14) Hypertension: Plan: BP stable (15) Hypothyroidism: (16) Osteoarthritis of hip: (17) Seizure disorder: (18) Paranoid schizophrenia, chronic condition: Plan: continue Rocephin, follow up repeat blood cultures he is from [facility], will return their when medically stable Admission and Anticipated Discharge Date Admission Date: August 20, 2021 Subjective Patient reports no new symptoms. Review of Systems Review of Systems: All systems reviewed & are unremarkable except as noted in HPI & below Physical Exam Physical Exam: General: well developed, obese male, edematous, no distress Neck: supple, trachea midline, normal thyroid Lungs: clear to auscultation bilaterally, normal respiratory effort, no accessory muscle use, no distress Heart: regular S1 and S2, no murmur, peripheral pulses normal, capillary refill normal, +2 edema bilaterally Abdomen: soft, NT, ND, + BS, no hepatomegaly, normal to percussion Extremities: normal in appearance, no cyanosis, no petechiae, strength is greatly diminished, cannot stand up or transfer (requires Santiago lift) Neuro: awake, cooperative, moves all extremities, no focal motor deficits, CN II-XII intact, sensation in extremities intact, normal speech Skin: warm, dry, no rash, normal turgor Psych: Awake, alert oriented x 3, euthymic affect Results & Data Results & Data ([facility]) Vital Signs (Past 12 Hours) Vital Signs Temp Pulse Resp BP Pulse Ox 08/25/21 07:31 36.5 C 80 16 120/72 97 PG Care Time/CCT Total # of Minutes Spent Total Time Spent with Patient: Total time spent is greater than 50% in coordination of care (as documented) at patient's floor/unit and/or counseling patient: Coding Level of Care Code 19025 Subseq Hosp Care Lvl 2 Diagnoses Septic shock A41.9; R65.21 OCTAVIO (acute kidney injury) N17.9 Respiratory failure J96.01 Chronicity: acute Respiratory failure complication: hypoxia Anemia D64.9 Anemia type: unspecified type Hypokalemia E87.6 Acute UTI N39.0 Pleural effusion J90 Lactic acidosis E87.2 Acute urinary retention R33.8 Complication, blocked Medina catheter T83.091A Encounter type: initial encounter Neurogenic bladder N31.9 Obesity E66.9 Hyperlipidemia E78.5 Hypertension I10 Hypothyroidism E03.9 Osteoarthritis of hip M16.9 Seizure disorder G40.909 Paranoid schizophrenia, chronic condition F20.0 Time Spent (min) 25 (1) Anemia Anemia type: unspecified type Qualified Code(s): D64.9 - Anemia, unspecified (2) Respiratory failure Chronicity: acute Respiratory failure complication: hypoxia Qualified Code(s): J96.01 - Acute respiratory failure with hypoxia (3) Complication, blocked Medina catheter Encounter type: initial encounter Qualified Code(s): T83.091A - Other mechanical complication of indwelling urethral catheter, initial encounter
[2021-08-25] MEDS ORDERED: POTASSIUM CHLORIDE CRTAB 20 MEQ TABCR PO STA (09:46)
[2021-08-25] MEDS: PANTOprazole 40 MG in SYRINGE 0 ML IV SCH (11:35)
[2021-08-25] MEDS: cefTRIAXone SODIUM 2,000 MG in DEXTROSE 5% 50 ML IV SCH (15:23)
[2021-08-25] MEDS: ATORVASTATIN 10 MG TAB PO SCH (20:39)
[2021-08-26] MEDS: LEVOTHYROXINE SODIUM 25 MCG TABLET PO SCH (06:00)
[2021-08-26] MEDS: carBAMazepine 100 MG CHEW TAB PO SCH ×4 (06:00→23:19)
[2021-08-26 06:56] LABS: BUN Creatinine Ratio 31.7 (10-20); Calcium 7.9 mg/dl (8.5-10.1); Creatinine Clr Calc Pharmacy 148.3 ml/min; Est GFR (African American) 122.3 ml/min; Est GFR (Non-African American) 105.5 ml/min; Potassium 3.7 mmol/L (3.5-5.1)
[2021-08-26] MEDS: ARIPiprazole 5 MG TAB PO SCH (07:34)
[2021-08-26] MEDS: FUROSEMIDE 40 MG TAB PO SCH ×2 (07:34→20:29)
[2021-08-26] MEDS: VENLAFAXINE HCL XR 75 MG CAPXR PO SCH (07:34)
[2021-08-26] MEDS: POTASSIUM CHLORIDE CRTAB 20 MEQ TABCR PO SCH ×3 (07:35→20:30)
[2021-08-26] MEDS: TIMOLOL MALEATE 0.5% OP SOLN 5 ML BTL OP SCH (07:35)
[2021-08-26] MEDS: VENLAFAXINE HCL XR 150 MG CAPXR PO SCH (07:35)
[2021-08-26] MEDS: DOCUSATE SODIUM SYRUP 100 MG/10 ML UDC PO SCH ×2 (07:35→20:31)
[2021-08-26] MEDS: ASPIRIN 81 MG ECTAB PO SCH (07:35)
[2021-08-26 08:07] LABS: Hemoglobin 8.6 g/dL (14.0-18.0); Mean Corpuscular Hemoglobin 33.2 pg (25-34); Mean Corpuscular Hgb Conc 31.9 g/dL (32-36); Mean Corpuscular Volume 104.2 fL (80-100); Mean Platelet Volume 11.6 fL (7.4-10.4); Platelet Count 154 K/uL (130-400); RDW Coefficient of Variation 15.3 % (11.5-14.5); RDW Standard Deviation 58.4 fL (36.4-46.3); Red Blood Count 2.59 M/uL (4.7-6.1); White Blood Count 6.93 K/uL (4.8-10.8)
[2021-08-26] MEDS: METOPROLOL TARTRATE 50 MG TAB PO SCH ×2 (11:48→20:30)
[2021-08-26] MEDS: PANTOprazole 40 MG in SYRINGE 0 ML IV SCH (11:51)
[2021-08-26] MEDS: cefTRIAXone SODIUM 2,000 MG in DEXTROSE 5% 50 ML IV SCH (13:29)
--- NOTE | 2021-08-26 15:20 | Hospitalist Progress Note ---
Date of Service August 26, 2021 Assessment & Plan (1) Septic shock: Plan: shock resolved, off pressors, BP stable actually examines edematous, continue Lasix 40mg PO daily today blood culture with E coli and urine culture with same E coli now blood culture with 2nd E coli and Proteus continue Rocephin as WBC normal and no fever repeat blood cultures drawn 08/23, follow up results: still preliminary negative for now. Blood cultures remain negative. Patient will remain on IV antibiotics until discharge. Awaiting placement. (2) OCTAVIO (acute kidney injury): Plan: Cr is down to 0.78, was as high as 2.0 making urine via medina examines volume overloaded, continue Lasix 40mg PO daily, will increase to BID, follow Cr (3) Respiratory failure: Plan: due to sepsis, was obtunded and needed intubated extubated on 08/21 when he was on PEEP 5 and FiO2 30% breathing well on room air the past two days (4) Anemia: Plan: Hb is 7.9, no signs of bleeding, fecal occult ordered but no BM cells are macrocytic, check folic acid and b12 Hemoglobin has remained stable. (5) Hypokalemia: Plan: remains hypokaelmic, will increase to 40 meq PO TID for 3 doses; will increase potassium today to 40 mew PO TID. may consider nephro consult. (6) Acute UTI: Plan: urine culture growing E coli, on Rocephin WBC normal and no fever, vitals stable (7) Pleural effusion: (8) Lactic acidosis: Plan: resolved due to sepsis (9) Acute urinary retention: Plan: medina in place (10) Complication, blocked Medina catheter: (11) Neurogenic bladder: (12) Obesity: (13) Hyperlipidemia: (14) Hypertension: Plan: BP stable (15) Hypothyroidism: (16) Osteoarthritis of hip: (17) Seizure disorder: (18) Paranoid schizophrenia, chronic condition: Plan: continue Rocephin, follow up repeat blood cultures he is from [facility], will return their when medically stable Admission and Anticipated Discharge Date Admission Date: August 20, 2021 Subjective 66 yo male reports no new symptoms. Review of Systems Review of Systems: All systems reviewed & are unremarkable except as noted in HPI & below Physical Exam Physical Exam: General: well developed, obese male, edematous, no distress Neck: supple, trachea midline, normal thyroid Lungs: clear to auscultation bilaterally, normal respiratory effort, no accessory muscle use, no distress Heart: regular S1 and S2, no murmur, peripheral pulses normal, capillary refill normal, +2 edema bilaterally Abdomen: soft, NT, ND, + BS, no hepatomegaly, normal to percussion Extremities: normal in appearance, no cyanosis, no petechiae, strength is gr eatly diminished, cannot stand up or transfer (requires Santiago lift) Neuro: awake, cooperative, moves all extremities, no focal motor deficits, CN II-XII intact, sensation in extremities intact, normal speech Skin: warm, dry, no rash, normal turgor Psych: Awake, alert oriented x 3, euthymic affect Results & Data Results & Data ([facility]) Vital Signs (Past 12 Hours) Vital Signs Temp Pulse Resp BP Pulse Ox 08/26/21 07:22 36.6 C 75 20 126/71 94 PG Care Time/CCT Total # of Minutes Spent Total Time Spent with Patient: Total time spent is greater than 50% in coordination of care (as documented) at patient's floor/unit and/or counseling patient: Coding Level of Care Code 82852 Subseq Hosp Care Lvl 2 Diagnoses Septic shock A41.9; R65.21 OCTAVIO (acute kidney injury) N17.9 Respiratory failure J96.01 Chronicity: acute Respiratory failure complication: hypoxia Anemia D64.9 Anemia type: unspecified type Hypokalemia E87.6 Acute UTI N39.0 Pleural effusion J90 Lactic acidosis E87.2 Acute urinary retention R33.8 Complication, blocked Medina catheter T83.091A Encounter type: initial encounter Neurogenic bladder N31.9 Obesity E66.9 Hyperlipidemia E78.5 Hypertension I10 Hypothyroidism E03.9 Osteoarthritis of hip M16.9 Seizure disorder G40.909 Paranoid schizophrenia, chronic condition F20.0 (1) Respiratory failure Chronicity: acute Respiratory failure complication: hypoxia Qualified Code(s): J96.01 - Acute respiratory failure with hypoxia (2) Anemia Anemia type: unspecified type Qualified Code(s): D64.9 - Anemia, unspecified (3) Complication, blocked Medina catheter Encounter type: initial encounter Qualified Code(s): T83.091A - Other mechanical complication of indwelling urethral catheter, initial encounter
[2021-08-26] MEDS: ATORVASTATIN 10 MG TAB PO SCH (20:30)
[2021-08-26] MEDS: SIMETHICONE 80 MG CHEW PO PRN (20:30)
[2021-08-27] MEDS: carBAMazepine 100 MG CHEW TAB PO SCH ×3 (05:42→18:13)
[2021-08-27] MEDS: SIMETHICONE 80 MG CHEW PO PRN (05:42)
[2021-08-27] MEDS: LEVOTHYROXINE SODIUM 25 MCG TABLET PO SCH (05:43)
[2021-08-27] MEDS: ARIPiprazole 5 MG TAB PO SCH (08:28)
[2021-08-27] MEDS: FUROSEMIDE 40 MG TAB PO SCH ×2 (08:29→20:51)
[2021-08-27] MEDS: ASPIRIN 81 MG ECTAB PO SCH (08:29)
[2021-08-27] MEDS: DOCUSATE SODIUM SYRUP 100 MG/10 ML UDC PO SCH ×2 (08:29→20:50)
[2021-08-27] MEDS: POTASSIUM CHLORIDE CRTAB 20 MEQ TABCR PO SCH ×3 (08:30→20:55)
[2021-08-27] MEDS: METOPROLOL TARTRATE 50 MG TAB PO SCH ×2 (08:30→20:51)
[2021-08-27] MEDS: TIMOLOL MALEATE 0.5% OP SOLN 5 ML BTL OP SCH (08:31)
[2021-08-27] MEDS: VENLAFAXINE HCL XR 75 MG CAPXR PO SCH (08:32)
[2021-08-27] MEDS: VENLAFAXINE HCL XR 150 MG CAPXR PO SCH (08:32)
[2021-08-27] MEDS: PANTOprazole 40 MG in SYRINGE 0 ML IV SCH (11:14)
[2021-08-27] MEDS: cefTRIAXone SODIUM 2,000 MG in DEXTROSE 5% 50 ML IV SCH (13:21)
[2021-08-27] MEDS: ATORVASTATIN 10 MG TAB PO SCH (20:51)
--- NOTE | 2021-08-27 22:16 | Hospitalist Progress Note ---
Date of Service August 27, 2021 Assessment & Plan (1) Septic shock: Plan: shock resolved, off pressors, BP stable actually examines edematous, continue Lasix 40mg PO daily today blood culture with E coli and urine culture with same E coli now blood culture with 2nd E coli and Proteus continue Rocephin as WBC normal and no fever repeat blood cultures drawn 08/23, follow up results: Blood cultures remain negative. Patient will remain on IV antibiotics until discharge. Awaiting placement. (2) OCTAVIO (acute kidney injury): Plan: Cr is down to 0.78, was as high as 2.0 making urine via medina examines volume overloaded, continue Lasix 40mg PO daily, will increase to BID, follow Cr (3) Respiratory failure: Plan: due to sepsis, was obtunded and needed intubated extubated on 08/21 when he was on PEEP 5 and FiO2 30% breathing well on room air the past two days (4) Anemia: Plan: Hb is 7.9, no signs of bleeding, fecal occult ordered but no BM cells are macrocytic, check folic acid and b12 Hemoglobin has remained stable. (5) Hypokalemia: Plan: remains hypokaelmic, will increase to 40 meq PO TID for 3 doses; will increase potassium today to 40 mew PO TID. may consider nephro consult. (6) Acute UTI: Plan: urine culture growing E coli, on Rocephin WBC normal and no fever, vitals stable (7) Pleural effusion: (8) Lactic acidosis: Plan: resolved due to sepsis (9) Acute urinary retention: Plan: medina in place (10) Complication, blocked Medina catheter: (11) Neurogenic bladder: (12) Obesity: (13) Hyperlipidemia: (14) Hypertension: Plan: BP stable (15) Hypothyroidism: (16) Osteoarthritis of hip: (17) Seizure disorder: (18) Paranoid schizophrenia, chronic condition: Plan: continue Rocephin, follow up repeat blood cultures he is from [facility], will return their when medically stable Admission and Anticipated Discharge Date Admission Date: August 20, 2021 Subjective 67 yo male reports no new symptoms. Review of Systems Review of Systems: All systems reviewed & are unremarkable except as noted in HPI & below Physical Exam Physical Exam: General: well developed, obese male, edematous, no distress Neck: supple, trachea midline, normal thyroid Lungs: clear to auscultation bilaterally, normal respiratory effort, no accessory muscle use, no distress Heart: regular S1 and S2, no murmur, peripheral pulses normal, capillary refill normal, +2 edema bilaterally Abdomen: soft, NT, ND, + BS, no hepatomegaly, normal to percussion Extremities: normal in appearance, no cyanosis, no petechiae, strength is greatly diminished, cannot stand up or transfer (requires Santiago lift) Neuro: awake, cooperative, moves all extremities, no focal motor deficits, CN II-XII intact, sensation in extremities intact, normal speech Skin: warm, dry, no rash, normal turgor Psych: Awake, alert oriented x 3, euthymic affect Results & Data Results & Data ([facility]) Vital Signs (Past 12 Hours) Vital Signs Temp Pulse Resp BP Pulse Ox 08/27/21 20:47 36.6 C 78 16 120/70 96 08/27/21 15:16 36.6 C 68 18 121/74 98 PG Care Time/CCT Total # of Minutes Spent Total Time Spent with Patient: Total time spent is greater than 50% in coordination of care (as documented) at patient's floor/unit and/or counseling patient: Coding Level of Care Code 54830 Subseq Hosp Care Lvl 1 Diagnoses Septic shock A41.9; R65.21 OCTAVIO (acute kidney injury) N17.9 Respiratory failure J96.01 Chronicity: acute Respiratory failure complication: hypoxia Anemia D64.9 Anemia type: unspecified type Hypokalemia E87.6 Acute UTI N39.0 Pleural effusion J90 Lactic acidosis E87.2 Acute urinary retention R33.8 Complication, blocked Medina catheter T83.091A Encounter type: initial encounter Neurogenic bladder N31.9 Obesity E66.9 Hyperlipidemia E78.5 Hypertension I10 Hypothyroidism E03.9 Osteoarthritis of hip M16.9 Seizure disorder G40.909 Paranoid schizophrenia, chronic condition F20.0 (1) Respiratory failure Chronicity: acute Respiratory failure complication: hypoxia Qualified Code(s): J96.01 - Acute respiratory failure with hypoxia (2) Anemia Anemia type: unspecified type Qualified Code(s): D64.9 - Anemia, unspecified (3) Complication, blocked Medina catheter Encounter type: initial encounter Qualified Code(s): T83.091A - Other mechanical complication of indwelling urethral catheter, initial encounter
[2021-08-28] MEDS: carBAMazepine 100 MG CHEW TAB PO SCH ×4 (00:23→17:33)
[2021-08-28] MEDS: LEVOTHYROXINE SODIUM 25 MCG TABLET PO SCH (06:17)
[2021-08-28] MEDS: VENLAFAXINE HCL XR 75 MG CAPXR PO SCH (08:05)
[2021-08-28] MEDS: DOCUSATE SODIUM SYRUP 100 MG/10 ML UDC PO SCH (08:05)
[2021-08-28] MEDS: ARIPiprazole 5 MG TAB PO SCH (08:05)
[2021-08-28] MEDS: ASPIRIN 81 MG ECTAB PO SCH (08:05)
[2021-08-28] MEDS: FUROSEMIDE 40 MG TAB PO SCH (08:06)
[2021-08-28] MEDS: VENLAFAXINE HCL XR 150 MG CAPXR PO SCH (08:07)
[2021-08-28] MEDS: POTASSIUM CHLORIDE CRTAB 20 MEQ TABCR PO SCH ×2 (08:08→13:25)
[2021-08-28] MEDS: METOPROLOL TARTRATE 50 MG TAB PO SCH (08:09)
[2021-08-28] MEDS: TIMOLOL MALEATE 0.5% OP SOLN 5 ML BTL OP SCH (08:09)
[2021-08-28] MEDS: PANTOprazole 40 MG in SYRINGE 0 ML IV SCH (11:02)
[2021-08-28] MEDS: cefTRIAXone SODIUM 2,000 MG in DEXTROSE 5% 50 ML IV SCH (13:25)
[2021-08-28 16:38] LABS: BUN Creatinine Ratio 28.2 (10-20); Calcium 8.5 mg/dl (8.5-10.1); Creatinine Clr Calc Pharmacy 125.3 ml/min; Est GFR (African American) 114.1 ml/min; Est GFR (Non-African American) 98.5 ml/min; Potassium 4.5 mmol/L (3.5-5.1)
--- NOTE | 2021-09-01 22:55 | Discharge Summary ---
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 Patient was reportedly at dinner at his nursing facility ([facility]) when he became progressively more lethargic. He was shortly thereafter noted to be febrile and hypoxic to 66%. He was transported to [facility] with rebreather, where he was found to be febrile to 39.9 with BP 70/40 and HR of 130, SpO2 60%. VBG demonstrated: 7.17 / pCO2 53 / HCO3 19. OCTAVIO appreciated with BUN 31 / Cr 2.00. Lactate elevated at 5.5. Procal elevated to 21. UA demonstrated 3+ blood, LE, >30 WBCs, >30 RBCs. He became progressively more obtunded and required emergent intubation and initiation of pressors. Zosyn was given. Patient was sent for CT, and emergency physician spoke with on-call senior graduate advisor. Of note, patient had a colonoscopy performed on 08/15/2021 for evaluation of hematochezia. Diverticulosis was noted. Further, was noted to have recent dislocation of the left hip with associated osteomyelitis. Further, patient has history of discitis/thoracic abscess in 07/2020. He completed IV vancomycin last week for this. CT of the head demonstrated findings potentially consistent with sinusitis, otherwise no intracranial abnormalities. CT of the abdomen and pelvis demonstrated air-filled colon, large hiatal hernia, "progressive destruction of the left femoral acetabular joint with resorptive changes of the femoral head and acetabulum joint. There is a large hip effusion with numerous loose ossified bodies for which septic arthritis is possible." Chest CT demonstrated significant implant irregularity within vertebral body at [id number], which is new from the previous exam. Principal Diagnosis septic shock (bacteremia) from UTI Discharge Exam General: well developed, obese male, edematous, no distress Neck: supple, trachea midline, normal thyroid Lungs: clear to auscultation bilaterally, normal respiratory effort, no accessory muscle use, no distress Heart: regular S1 and S2, no murmur, peripheral pulses normal, capillary refill normal, +2 edema bilaterally Abdomen: soft, NT, ND, + BS, no hepatomegaly, normal to percussion Extremities: normal in appearance, no cyanosis, no petechiae, strength is greatly diminished, cannot stand up or transfer (requires Santiago lift) Neuro: awake, cooperative, moves all extremities, no focal motor deficits, CN II-XII intact, sensation in extremities intact, normal speech Skin: warm, dry, no rash, normal turgor Psych: Awake, alert oriented x 3, euthymic affect Discharge Data Allergies Allergy/AdvReac Type Severity Reaction Status Date / Time loxapine AdvReac Mild restless Verified 08/19/21 23:26 and nervous morphine AdvReac Mild nausea/vomi Verified 08/19/21 23:26 ting Consultations 08/20/21 00:01 ED Decision to Admit Stat 08/20/21 00:05 Consult Cloth Shearing Supervisor Routine Ordered Studies 08/19/21 23:27 CT abd pelvis wo con Urgent CT chest diagnostic wo con Urgent CT head/brain wo con Urgent 08/20/21 08:26 US point of care ultrasound Urgent Hospital Course (1) Septic shock: shock resolved, off pressors, BP stable actually examines edematous, continue Lasix 40mg PO daily today blood culture with E coli and urine culture with same E coli now blood culture with 2nd E coli and Proteus continue Rocephin as WBC normal and no fever repeat blood cultures drawn 08/23: negative. Patient remained on IV antibiotics until discharge. will complete 2 weeks of antibiotics with oral regimen at discharge. (2) OCTAVIO (acute kidney injury): Cr is down to 0.78, was as high as 2.0 making urine via medina examines volume overloaded, continue Lasix 40mg PO daily, will increase to BID, follow Cr Patient diuresed during hospital stay. -7.3 LITERS Will resume home meds. (3) Respiratory failure: due to sepsis, was obtunded and needed intubated extubated on 08/21 when he was on PEEP 5 and FiO2 30% breathing well on room air the past two days (4) Anemia: Hb is 7.9, no signs of bleeding, fecal occult ordered but no BM cells are macrocytic, check folic acid and b12 Hemoglobin has remained stable. (5) Hypokalemia: remains hypokaelmic, will increase to 40 meq PO TID for 3 doses; will increase potassium today to 40 mew PO TID. may consider nephro consult. (6) Acute UTI: urine culture growing E coli, on Rocephin WBC normal and no fever, vitals stable (7) Pleural effusion: (8) Lactic acidosis: resolved due to sepsis (9) Acute urinary retention: medina in place (10) Complication, blocked Medina catheter: (11) Neurogenic bladder: (12) Obesity: (13) Hyperlipidemia: (14) Hypertension: BP stable (15) Hypothyroidism: (16) Osteoarthritis of hip: (17) Seizure disorder: (18) Paranoid schizophrenia, chronic condition: continue Rocephin, follow up repeat blood cultures he is from [facility], will return their when medically stable Total Time Total Time Spent Total Time Spent (In Minutes): 35 Discharge Plan Discharge Items Patient Disposition: Home - Self-Care Reason For Visit: SEPTIC SHOCK Discharge Diagnosis: septic shock Activity: Resume your previous activity Non-emergency contact: Primary Care Provider Call non-emergency contact if: you have any medication questions Follow-up/Referrals: Tori Rivas [Primary Care Provider] - Diet: Regular Addtl Attending Provider Instructions: You have been hospitalized for an acute medical problem. During your stay at [facility], we have made an effort to correct the problem that brought you to the hospital while keeping you as comfortable as possible. Medications were used to bring your condition under control and your discharge instructions will include directions for any medications you should take after leaving the hospital. Please make sure you see your Primary Care Provider as part of your follow up plan. You had a bacterial urinary tract infection which caused septic shock. Thankfully you responded to medication. Will resume your previous order of lasix. Will recommend we continue with antibiotics for 10 more days. Recommend followup with PCP in 1-2 weeks. recheck BMP in 1 week. Pending Studies at Discharge: No Stand-Alone Forms: My [facility] [employer], Smoking Cessation Medications and DC Order Prescriptions: New carbamazepine 100 mg Tablet,Chewable 300 mg PO Q6 30 Days Qty: 360 RF: 0 amoxicillin-pot clavulanate 875-125 mg tablet 1 tab PO BID Qty: 20 RF: 0 Continued venlafaxine 150 mg Capsule,Extended Release 24hr 150 mg PO QAM RF: 0 folic acid 1 mg tablet 1 mg PO QAM RF: 0 tamsulosin 0.4 mg Capsule 0.4 mg PO HS Qty: 0 RF: 0 timolol 0.5 % Drops 1 drp OPHTHALMIC (EYE) DAILY RF: 0 furosemide 40 mg tablet 40 mg PO DAILY RF: 0 venlafaxine 75 mg capsule,extended release 24hr 75 mg PO QAM RF: 0 lidocaine 4 % Adhesive Patch,Medicated 1 patch TOPICAL DAILY PRN (Reason: Mid back pain) RF: 0 atorvastatin 10 mg tablet 10 mg PO HS RF: 0 cyanocobalamin (vitamin B-12) [Vitamin B-12] 1,000 mcg Tablet 1,000 mcg PO QAM RF: 0 potassium chloride 20 mEq tablet,ER particles/crystals 40 meq PO BID RF: 0 ferrous sulfate 325 mg (65 mg iron) Tablet 325 mg PO DAILY RF: 0 metoprolol tartrate 50 mg tablet 50 mg PO BID RF: 0 aripiprazole [Abilify] 5 mg Tablet 5 mg PO QAM RF: 0 cholecalciferol (vitamin D3) [Vitamin D3] 125 mcg (5,000 unit) Tablet 125 mcg PO QAM RF: 0 ascorbic acid (vitamin C) 500 mg Capsule 500 mg PO QAM RF: 0 acetaminophen 325 mg Tablet 650 mg PO Q4H PRN (Reason: fever or pain) Qty: 30 RF: 0 levothyroxine 25 mcg Tablet 25 mcg PO DAILY RF: 0 aspirin [Aspirin Low Dose] 81 mg Tablet,Delayed Release (Dr/Ec) 81 mg PO DAILY RF: 0 bisacodyl [Dulcolax (bisacodyl)] 10 mg Suppository 10 mg SD DAILY PRN (Reason: Constipation) RF: 0 Enema 19-7 gram/118 mL Enema 118 ml SD DAILY PRN (Reason: Constipation) RF: 0 polyethylene glycol 3350 [Miralax] 17 gram/dose Powder 17 g PO DAILY RF: 0 simethicone 80 mg Tablet 80 mg PO Q6 PRN (Reason: gas relief) RF: 0 cyanocobalamin (vitamin B-12) 1,000 mcg/mL Kit 1,000 mcg SUBCUT MONTHLY RF: 0 ondansetron HCl 4 mg Tablet 4 mg PO Q6H PRN (Reason: Nausea) RF: 0 Changed Combivent Respimat 20-100 mcg/actuation Mist 1 puff INHALATION QID PRN (Reason: DYSPNEA) Qty: 0 RF: 0 Discontinued carbamazepine [Tegretol] 200 mg tablet 600 mg PO Q12 RF: 0 baclofen 10 mg Tablet 20 mg PO QAM RF: 0 gabapentin 300 mg capsule 300 mg PO Q8 RF: 0 oxycodone 5 mg Capsule 5 mg PO Q8H PRN (Reason: Severe Pain 7-10) RF: 0 tramadol 50 mg tablet 50 mg PO TID PRN (Reason: Pain) RF: 0 Discharge Orders: Discharge Order (Routine); Ordered 08/28/21 Ordered By: Toby Bertrand Admission Data Admit Date/Time: 08/20/21 00:05 Attending Provider: Toby Bertrand Admit Provider: Priyank Mendiola Primary Care Provider: Tori Rivas Other Providers: Evelyn, ; Andriy Otoole ; Anai Caal Other Interventions: Discharge Summary Assessment (RN) Last Done: 08/28/21 10:42 Coding Level of Care Code D/C DAY MANAGEMENT >30 MINS Diagnoses Septic shock A41.9; R65.21 OCTAVIO (acute kidney injury) N17.9 Respiratory failure J96.01 Chronicity: acute Respiratory failure complication: hypoxia Anemia D64.9 Anemia type: unspecified type Hypokalemia E87.6 Acute UTI N39.0 Pleural effusion J90 Lactic acidosis E87.2 Acute urinary retention R33.8 Complication, blocked Medina catheter T83.091A Encounter type: initial encounter Neurogenic bladder N31.9 Obesity E66.9 Hyperlipidemia E78.5 Hypertension I10 Hypothyroidism E03.9 Osteoarthritis of hip M16.9 Seizure disorder G40.909 Paranoid schizophrenia, chronic condition F20.0
== END 2021-08-28 19:14 | DRG 871 ==
LOC: ED 22:03 → SUATTDRO 08-20 00:05 → 1E 08-20 00:05 → 3E 08-24 15:35

== ENCOUNTER 2025-03-03 15:22 | Inpatient (IN) ==
[2025-03-03] MEDS ORDERED: ERTAPENEM 1000MG 1,000 MG/10 ML SYR IV STA (15:41)
--- NOTE | 2025-03-03 15:50 | Emergency Department Note ---
Impression & Plan Sepsis, Complicated urinary tract infection ED Provider Note NAME: SAIRA TSAI AGE: 69 SEX: M : 1955 ARRIVES VIA: Ambulance INFORMANT: Patient, EMS ED PROVIDER(S): Jasson Lezama DO CHIEF COMPLAINT: fevers HPI: This is a 69-year-old male with the PMHx of IBS-C, HTN, HLD, schizophrenia, hypothyroidism, and neurogenic bladder s/p chronic urethral catheter presenting to [facility] for further evaluation of fever. Patient is accompanied by EMS who provide additional history. Prehospital patient had reported facility fever of 103 F. EMS did have fever of 100.9 F. Patient was given a gram of Tylenol prior to arrival. Patient reports dry heaving. Patient states that he feels like he has a urinary tract infection. He is scheduled for suprapubic catheter next week. He states that he is currently on antibiotics for a UTI. He notes chronic constipation. He notes some crampy abdominal pain. No flank pain. No cough or congestion. Denies chest pain or palpitations. No shortness of breath. They deny abdominal pain, nausea and vomiting. Patient denies recent changes in medications or OTC supplements. Patient offers no other complaints, today. ADDITIONAL HISTORY OBTAINED: Per HPI Chronic Medical/Social Conditions Affecting Care: Per HPI PAST MEDICAL HISTORY: See Below PAST SURGICAL HISTORY: See Below FAMILY HISTORY: See Below SOCIAL HISTORY: See Below HOME MEDICATIONS: See Below ALLERGIES: See Below VITALS: See Below PHYSICAL EXAMINATION: GENERAL: Sitting up in bed, alert, well appearing, well nourished, no distress, non-toxic EYE EXAM: normal conjunctiva. PERRL and EOM's grossly intact. OROPHARYNX: no exudate, no erythema, lips, buccal mucosa, and tongue normal and mucous membranes are moist NECK: supple, no nuchal rigidity, no adenopathy, non-tender LUNGS: Clear to auscultation. Normal chest wall mechanics HEART: no murmurs, regular rate, regular rhythm ABDOMEN: abdomen soft, non-tender, no masses, no rebound or guarding. BACK: Back is symmetrical on inspection and there is no deformity, no midline tenderness, no CVA tenderness. SKIN: no rashes and no bruising UPPER EXTREMITIES: upper extremities are grossly normal. LOWER EXTREMITIES: No pitting edema. NEURO EXAM: Normal sensorium, GCS 15, normal speech, no gross weakness of arms, no gross weakness of legs. MEDICAL DECISION MAKING: Differential diagnoses includes but not limited to sepsis, bacteremia, complicated UTI, constipation, intra-abdominal abscess, pyelonephritis, infected kidney stone, pancreatitis, electrolyte derangements, viral URI, pneumonia, dehydration In summary, this is a 69 year old male who presented with fever. Differential as above. Nursing notes and pertinent past medical records reviewed. Vital signs reviewed and the patient is tachypneic but otherwise afebrile. History and presentation revealed Patient is being treated for possible UTI as an outpatient. Unclear what antibiotic he is taking. Patient now having urinary tract infection symptoms. Patient reports fevers. He also describes what seems to be rigors. Recent culture data shows pansensitive E coli and Proteus. Appears the patient may be on Doxycycline vs Nitrofurantoin. Physical examination revealed generally ill appearing man with urethral catheter in place. As a result of my initial evaluation, patient meets SIRS criteria with prehospital fever and tachypnea. Plan for sepsis evaluation. Given prior culture data as well as concerns for sepsis secondary to complicated UTI with risk factors for Pseudomonas, patient being provided with IV cefepime after discussion with pharmacy. Diagnostics interpreted by me include EKG and cardiac monitoring as listed below: -Cardiac Monitoring: An order was placed for continuous cardiac monitoring. The monitor shows a rate of 70-90s with regular rhythm. -ECG: EKG independently interpreted by me as normal sinus rhythm at a ventricular rate of [address] segment changes to suggest STEMI. There is a first-degree AV block present. Patient completed laboratory studies and imaging. CXR independently interpreted by me reveals no evidence of focal consolidation to suggest pna. No large pneumothorax or pleural effusion. Results independently interpreted by me are stable anemia. He does have a leukocytosis. Normal lactate. The patient was managed with IVF resuscitation. He was also given IV Cefepime based on prior urine culture data. UA shows evidence of infection after medina catheter was exchanged. Ultimately, the decision was made to admit the patient for sepsis secondary to complicated UTI. I discussed the case with the hospitalist service via telephone/TigerText and they are agreeable to admit the patient to their services. Based on the above, including the patient's age, coexisting illnesses, labs, imaging, and exam findings the decision to treat as an inpatient. I discussed the patient with the hospitalist team who recommended admission to their services. They received the medications, treatments, interventions indicated above and their condition []. I discussed my findings with the patient and their family and they understand and agree with the treatment plan. All patient / family questions were answered to their satisfaction. Consults/Care Managements Discussions: Per MDM ER treatment provided: See above Procedures:none Critical Care: None The chart was completed utilizing [employer] 24/7 voice recognition software. Grammatical errors, random word insertions, pronoun errors, and incomplete sentences are an occasional consequence of this system due to software limitations, ambient noise, and hardware issues. Any formal questions or concerns about the content, text, or information contained within the body of this dictation should be directly addressed to the physician for clarification. Past Med/Surg History Problem List (Updated 03/03/25 @ 21:28 by Jasson Lezama DO) Complicated urinary tract infection (Acute) Sepsis (Acute) Sepsis Urethral stricture (Acute) Anemia Metabolic encephalopathy Complication, blocked Medina catheter (Acute) Encounter for pre-operative examination Neurogenic bladder Urinary retention UTI (urinary tract infection) Septic arthritis Chronic left hip pain Osteomyelitis 2020 per records Thoracic abscess 2020 per records Morbid obesity due to excess calories Severe muscle deconditioning Shortness of breath Pleural effusion Obesity Weakness (Acute) Hypotension (Acute) Anxiety (Acute) Depression (Acute) Glaucoma syndrome (Acute) Hematochezia (Acute) Hypothyroidism (Acute) Osteoarthritis of hip (Acute) Paranoid schizophrenia, chronic condition (Acute) Seizure disorder (Acute) Synovial cyst of popliteal space (Acute) Vitamin D deficiency (Acute) HLD (hyperlipidemia) HTN (hypertension) Chest pain No chest pain per 02/10/25 PCP note Noncompliance with medication regimen (Acute) Medical History [facility] Urinary retention Urethral stricture Severe muscle deconditioning Hx of osteomyelitis 2020 per records History of pleural effusion Osteoarthritis 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 per records Schizophrenia Personal history of COVID-19 Other megaloblastic anemias, not elsewhere classified Hypothyroidism Unspecified diastolic (congestive) heart failure Secondary hyperaldosteronism Other symbolic dysfunction Hx of respiratory failure Due to sepsis 07/2021 per records "Chronic hypoxemic respiratory failure- breathing stable" per PCP records 02/10/25 Hx of septic shock 07/2021 per records Neurogenic bladder History of anemia History of acute renal failure 2021 per records Depression HLD (hyperlipidemia) HTN (hypertension) COPD (chronic obstructive pulmonary disease) Anxiety Peripheral vascular disease Heart failure Epilepsy Paraplegia Indwelling Medina catheter present Glaucoma History of MRSA infection History of COVID-19 per [facility] records dated 02/27/2021 Neuromuscular dysfunction of bladder Discitis 07/2020 per records MRSA bacteremia Entered in 2020 GERD (gastroesophageal reflux disease) Surgical History Presence of urogenital implants History of colonoscopy History of appendectomy History of cholecystectomy History of wisdom tooth extraction History of umbilical hernia repair Family History Father Family history of diabetes mellitus Mother Family history of diabetes mellitus Brother Family history of diabetes mellitus Other No family history of adverse response to anesthesia Social History Smoking Status: Former smoker Tobacco Type: Cigarettes Cigarettes Per Day: unknown; Hx Alcohol Use: No Hx Substance Use: No Preferred Language: Ukrainian Communication Ability: Effective Communication Ability Comment: per [facility] pt is of sound mind and can sign own consents [employer] Required: No Beliefs That Will Affect Care: None marital status: Current Living Situation: Longterm Current Living Situation Comment: resident [facility] How many Children do You have: 0 Feels Safe at Home: Yes Assistive Devices: Wheelchair Allergies Allergies Allergy/AdvReac Type Severity Reaction Status Date / Time loxapine AdvReac Intermediate restless Verified 01/31/25 14:30 and nervous morphine AdvReac Intermediate nausea/vomi Verified 01/31/25 14:30 ting Home Meds Home Medications Medication Instructions Recorded Confirmed folic acid 1 mg tablet 1 mg PO QAM 07/21/20 01/31/25 ascorbic acid (vitamin C) 500 mg 500 mg PO QAM 03/14/21 01/31/25 capsule atorvastatin 10 mg tablet 10 mg PO HS 03/14/21 01/31/25 furosemide 40 mg tablet 40 mg PO QAM 03/14/21 01/31/25 metoprolol tartrate 50 mg tablet 50 mg PO BID 03/14/21 01/31/25 potassium chloride 20 mEq 40 meq PO BID 03/14/21 01/31/25 tablet,extended release(part/cryst) levothyroxine 25 mcg tablet 25 mcg PO QAM 06/28/21 01/31/25 timolol 0.5 % eye drops 1 drp ophthalmic (eye) DAILY 08/05/21 01/31/25 aspirin 81 mg tablet,delayed 81 mg PO DAILY 08/13/21 01/31/25 release (Corinne Low Dose Aspirin) bisacodyl 10 mg rectal suppository 10 mg NE DAILY PRN Constipation 08/13/21 01/31/25 (Dulcolax (bisacodyl)) cyanocobalamin (vitamin B-12) 1,000 mcg subcut MONTHLY 08/13/21 01/31/25 1,000 mcg/mL injection kit polyethylene glycol 3350 17 17 g PO BID 08/13/21 01/31/25 gram/dose oral powder (Miralax) ondansetron HCl 4 mg tablet 4 mg PO Q6H PRN Nausea 08/19/21 01/31/25 carbamazepine 100 mg 300 mg PO Q8 08/04/22 01/31/25 tablet,extended release,12 hr magnesium hydroxide 400 mg/5 mL 30 ml PO DIRECTED PRN 08/04/22 01/31/25 oral suspension Constipation, NO BM X 3 DAYS duloxetine 60 mg capsule,delayed 120 mg PO QAM 01/26/23 01/31/25 release (Cymbalta) aripiprazole 15 mg tablet (Abilify) 15 mg PO DAILY 05/12/23 01/31/25 ammonium lactate 12 % lotion 1 applic topical BID 10/04/24 01/31/25 cholecalciferol (vitamin D3) 50 50 mcg PO DAILY 10/04/24 01/31/25 mcg (2,000 unit) capsule (Vitamin D3) doxycycline hyclate 100 mg tablet 100 mg PO BID 10/04/24 01/31/25 sennosides 8.6 mg-docusate sodium 2 tab-cap PO BID 10/04/24 01/31/25 50 mg tablet (Senna-S) simethicone 125 mg capsule 125 mg PO TID 10/04/24 01/31/25 diphenhydramine HCl 25 mg capsule 50 mg PO QID PRN itching/hives 01/31/25 01/31/25 (Benadryl) lactulose 10 gram/15 mL oral 15 ml PO BID 01/31/25 01/31/25 solution tenapanor 50 mg tablet (Ibsrela) 50 mg PO BID 01/31/25 01/31/25 Previous Rx's Medication Instructions Recorded tamsulosin 0.4 mg capsule 0.4 mg PO HS #0 caps 08/23/20 acetaminophen 325 mg tablet 650 mg (2 x 325 mg) PO Q4H PRN 03/18/21 fever or pain #30 tabs Results & Data (ED) Vital Signs Vital Signs - 24 hr 03/03/25 15:08 03/03/25 15:37 03/03/25 15:48 Temperature 37.3 C Temperature Source Oral Pulse Rate 80 78 79 Pulse Rate [Apical] Pulse Rate from SpO2 Sensor 78 Pulse Rhythm Regular Pulse Rhythm [Apical] Pulse Strength Normal Pulse Strength [Apical] Respiratory Rate 22 19 19 Respiratory Effort / Characteristics Non-Labored Spontaneous Respiratory Depth Normal Respiratory Pattern Regular Blood Pressure 143/72 H 147/82 H Blood Pressure [Right Arm] Blood Pressure Mean 95 103 Blood Pressure Mean [Right Arm] Blood Pressure Position [Right Arm] Pulse Oximetry 95 98 95 Oxygen Delivery Method Room Air Room Air Sepsis Recent Fever Within 48 Hours Yes Sepsis New/Unexplained Change in Mental Status No Sepsis Action Taken by Nursing No Action Required 03/03/25 16:08 03/03/25 16:30 03/03/25 16:37 Temperature Temperature Source Pulse Rate 79 78 Pulse Rate [Apical] 78 Pulse Rate from SpO2 Sensor 78 Pulse Rhythm Pulse Rhythm [Apical] Regular Pulse Strength Pulse Strength [Apical] Normal Respiratory Rate 21 22 Respiratory Effort / Characteristics Non-Labored Spontaneous Respiratory Depth Normal Respiratory Pattern Regular Blood Pressure Blood Pressure [Right Arm] Blood Pressure Mean Blood Pressure Mean [Right Arm] Blood Pressure Position [Right Arm] Pulse Oximetry 95 95 Oxygen Delivery Method Room Air Sepsis Recent Fever Within 48 Hours Sepsis New/Unexplained Change in Mental Status Sepsis Action Taken by Nursing 03/03/25 16:48 03/03/25 17:00 03/03/25 17:08 Temperature Temperature Source Pulse Rate 75 78 Pulse Rate [Apical] 81 Pulse Rate from SpO2 Sensor 75 79 Pulse Rhythm Pulse Rhythm [Apical] Regular Pulse Strength Pulse Strength [Apical] Normal Respiratory Rate 25 H 25 H 22 Respiratory Effort / Characteristics Non-Labored Respiratory Depth Normal Respiratory Pattern Blood Pressure Blood Pressure [Right Arm] 105/64 Blood Pressure Mean Blood Pressure Mean [Right Arm] 77 Blood Pressure Position [Right Arm] Semi-fowlers Pulse Oximetry 95 96 96 Oxygen Delivery Method Room Air Sepsis Recent Fever Within 48 Hours Sepsis New/Unexplained Change in Mental Status Sepsis Action Taken by Nursing 03/03/25 17:21 03/03/25 17:28 03/03/25 17:30 Temperature Temperature Source Pulse Rate 82 85 Pulse Rate [Apical] Pulse Rate from SpO2 Sensor 81 Pulse Rhythm Pulse Rhythm [Apical] Pulse Strength Pulse Strength [Apical] Respiratory Rate 27 H 22 22 Respiratory Effort / Characteristics Non-Labored Spontaneous Respiratory Depth Normal Respiratory Pattern Blood Pressure 149/76 H Blood Pressure [Right Arm] Blood Pressure Mean 86 Blood Pressure Mean [Right Arm] Blood Pressure Position [Right Arm] Pulse Oximetry 97 97 95 Oxygen Delivery Method Room Air Room Air Sepsis Recent Fever Within 48 Hours Sepsis New/Unexplained Change in Mental Status Sepsis Action Taken by Nursing 03/03/25 17:48 03/03/25 18:00 03/03/25 18:15 Temperature Temperature Source Pulse Rate 79 81 90 Pulse Rate [Apical] Pulse Rate from SpO2 Sensor 80 81 90 Pulse Rhythm Pulse Rhythm [Apical] Pulse Strength Pulse Strength [Apical] Respiratory Rate 27 H 24 19 Respiratory Effort / Characteristics Respiratory Depth Respiratory Pattern Blood Pressure 152/76 H 148/78 H 140/77 Blood Pressure [Right Arm] Blood Pressure Mean 101 101 106 Blood Pressure Mean [Right Arm] Blood Pressure Position [Right Arm] Pulse Oximetry 96 97 97 Oxygen Delivery Method Sepsis Recent Fever Within 48 Hours Sepsis New/Unexplained Change in Mental Status Sepsis Action Taken by Nursing 03/03/25 18:48 03/03/25 19:18 03/03/25 19:39 Temperature Temperature Source Pulse Rate 88 92 H 86 Pulse Rate [Apical] Pulse Rate from SpO2 Sensor 88 92 H Pulse Rhythm Pulse Rhythm [Apical] Pulse Strength Pulse Strength [Apical] Respiratory Rate 22 16 Respiratory Effort / Characteristics Respiratory Depth Respiratory Pattern Blood Pressure 144/73 H 142/76 H Blood Pressure [Right Arm] Blood Pressure Mean 96 98 Blood Pressure Mean [Right Arm] Blood Pressure Position [Right Arm] Pulse Oximetry 96 95 Oxygen Delivery Method Sepsis Recent Fever Within 48 Hours Sepsis New/Unexplained Change in Mental Status Sepsis Action Taken by Nursing 03/03/25 19:39 03/03/25 20:00 03/03/25 20:15 Temperature Temperature Source Pulse Rate 88 90 86 Pulse Rate [Apical] Pulse Rate from SpO2 Sensor 87 88 82 Pulse Rhythm Pulse Rhythm [Apical] Pulse Strength Pulse Strength [Apical] Respiratory Rate 21 22 19 Respiratory Effort / Characteristics Respiratory Depth Respiratory Pattern Blood Pressure 132/65 151/79 H 125/75 Blood Pressure [Right Arm] Blood Pressure Mean 87 103 91 Blood Pressure Mean [Right Arm] Blood Pressure Position [Right Arm] Pulse Oximetry 97 97 95 Oxygen Delivery Method Sepsis Recent Fever Within 48 Hours Sepsis New/Unexplained Change in Mental Status Sepsis Action Taken by Nursing 03/03/25 20:30 03/03/25 20:45 03/03/25 21:06 Temperature Temperature Source Pulse Rate 86 84 76 Pulse Rate [Apical] Pulse Rate from SpO2 Sensor 86 84 77 Pulse Rhythm Pulse Rhythm [Apical] Pulse Strength Pulse Strength [Apical] Respiratory Rate 19 22 23 Respiratory Effort / Characteristics Respiratory Depth Respiratory Pattern Blood Pressure 124/75 138/76 133/70 Blood Pressure [Right Arm] Blood Pressure Mean 93 103 91 Blood Pressure Mean [Right Arm] Blood Pressure Position [Right Arm] Pulse Oximetry 96 96 97 Oxygen Delivery Method Sepsis Recent Fever Within 48 Hours Sepsis New/Unexplained Change in Mental Status Sepsis Action Taken by Nursing Laboratory Data 03/03/25 15:50 03/03/25 15:50 Lab Results 03/03/25 03/03/25 Range/Units 15:50 17:12 WBC 14.41 H (4.8-10.8) K/ul RBC 3.60 L (4.70-6.10) M/uL Hgb 12.4 L (14.0-18.0) g/dl Hct 35.9 L (42.0-52.0) % MCV 99.7 (80.0-100.0) fL MCH 34.4 H (25.0-34.0) pg MCHC 34.5 (32.0-36.0) g/dL RDW Std Deviation 51.9 H (36.4-46.3) fL RDW Coeff of Peng 14.1 (11.5-14.5) % Plt Count 192 (130-400) K/uL MPV 9.8 (9.4-12.4) fL Immature Gran % (Auto) 0.5 % Neut % (Auto) 89.6 % Lymph % (Auto) 2.8 % Dukes % (Auto) 6.1 % Eos % (Auto) 0.8 % Baso % (Auto) 0.2 % Neut # (Auto) 12.90 H (1.40-6.50) K/uL Lymph # (Auto) 0.41 L (1.20-3.40) K/uL Dukes # (Auto) 0.88 H (0.11-0.59) K/uL Eos # (Auto) 0.12 (0.00-0.50) K/uL Baso # (Auto) 0.03 (0.00-0.20) K/uL Immature Gran # (Auto) 0.07 (0.01-0.20) K/uL Sodium 137 (136-145) mmol/L Potassium 4.1 (3.5-5.1) mmol/L Chloride 101 (98-107) mmol/L Carbon Dioxide 29 (21-32) mmol/L Anion Gap 7 (3-11) BUN 21 (6-23) mg/dl Creatinine 0.85 (0.6-1.4) mg/dl Est Cr Clr Drug Dosing 113.3 ml/min eGFR 94.65 BUN/Creatinine Ratio 24.7 H (10-20) Glucose 110 H (70-99(Fasting)) mg/dl Lactate 1.6 (0.4-2.0) mmol/L Calcium 8.6 (8.6-10.3) mg/dl Magnesium 1.7 (1.7-2.4) mg/dl Total Bilirubin 0.6 (0.2-1.0) mg/dl Direct Bilirubin 0.1 (0-0.2) mg/dl AST 13 (13-39) U/L ALT 15 (7-52) U/L Alkaline Phosphatase 93 (34-104) U/L Troponin I High Sens 4.5 (0-20) pg/ml Total Protein 6.7 (6.0-8.3) gm/dl Albumin 3.6 (3.4-5.0) gm/dl Procalcitonin 0.20 (0-0.5) ng/ml Urine Color Yellow Urine Appearance Cloudy A (Clear) Urine pH 5.0 (4.5-7.5) Ur Specific Eugene 1.018 (1.000-1.030) Urine Protein Trace H (Negative) Urine Glucose (UA) Negative (Negative) Urine Ketones Negative (Negative) Urine Blood 1+ H (Negative) Urine Nitrite Negative (Negative) Urine Bilirubin Negative (Negative) Urine Urobilinogen Negative (Negative) Ur Leukocyte Esterase 3+ H (Negative) Urine WBC (Auto) >50 H (0-5) /hpf Urine RBC (Auto) 6-10 H (0-2) /hpf U Hyaline Cast (Auto) 11-20 H (0-2) /lpf U Epithel Cells (Auto) 3-5 H (0-2) /hpf Urine Bacteria (Auto) 2+ H (None Seen) Urine Comment Administered Medications Meropenem 500 mg/ Syringe 10 mls @ 2 mls/min IV Q6H KAYODE; Protocol Stop: 03/13/25 19:14 Last Admin: 03/03/25 20:24 Dose: 2 mls/min Documented By: BEAN Lactated Ringer's (Lr) 1,000 mls @ 100 mls/hr IV .Q10H KAYODE Stop: 03/07/25 07:00 Last Admin: 03/03/25 20:32 Dose: 100 mls/hr Documented By: BEAN Discontinued Medications Acetaminophen (Acetaminophen 500 Mg Tab) 1,000 mg PO NOW STA Stop: 03/03/25 18:55 Last Admin: 03/03/25 19:03 Dose: 1,000 mg Documented By: BEAN Sodium Chloride (Nss) 1,000 mls @ 999 mls/hr IV .Q1H1M KAYODE Stop: 03/03/25 16:45 Last Infusion: 03/03/25 17:11 Dose: Infused Documented By: Admin: 03/03/25 15:52 Dose: 999 mls/hr Documented By: KAYE Cefepime HCl (Maxipime 2000mg) 2,000 mg in 20 mls @ 5 mls/min IV NOW STA; Protocol Stop: 03/03/25 15:49 Last Admin: 03/03/25 16:23 Dose: 5 mls/min Documented By: KAYE Imaging Data Radiologist's Impression: Chest X-Ray 03/03/25 15:37 Clinical History: Sepsis Technique: A frontal view of the chest was obtained Comparison is made to the chest CT dated 10/04/2024 Findings: A large hiatal hernia is again seen, with suspected adjacent left lower lobe atelectasis. The heart size is at the upper limit of normal. No pleural effusion or pneumothorax is seen. There is mild right lung base atelectasis No fracture is noted. No foreign body is seen Impression: 1. Large hiatal hernia 2. Bilateral lung base atelectasis Electronically signed by Roger Starr 03-03-2025 4:58 PM Discharge Plan Visit Data Chief Complaint: Illness Stated Complaint: Illness ED Provider: Jasson Lezama Discharge Problem: Sepsis, Complicated urinary tract infection Patient Disposition: Admitted As Inpatient Condition: Serious Forms Stand Alone Forms: My [facility] Prescriptions Prescriptions: No Action folic acid 1 mg tablet 1 mg PO QAM tamsulosin 0.4 mg Capsule 0.4 mg PO HS Qty: 0 0RF timolol 0.5 % Drops 1 drp OPHTHALMIC (EYE) DAILY furosemide 40 mg tablet 40 mg PO QAM atorvastatin 10 mg tablet 10 mg PO HS potassium chloride 20 mEq tablet,ER particles/crystals 40 meq PO BID metoprolol tartrate 50 mg tablet 50 mg PO BID Rx Instructions: HOLD FOR SBP < 100 OR HR < 60 ascorbic acid (vitamin C) 500 mg Capsule 500 mg PO QAM acetaminophen 325 mg Tablet 650 mg PO Q4H MDD 3 GRAMS/24 HOURS PRN (Reason: fever or pain) Qty: 30 0RF levothyroxine 25 mcg Tablet 25 mcg PO QAM aspirin [Corinne Low Dose Aspirin] 81 mg Tablet,Delayed Release (Dr/Ec) 81 mg PO DAILY bisacodyl [Dulcolax (bisacodyl)] 10 mg Suppository 10 mg NE DAILY PRN (Reason: Constipation) Rx Instructions: IF NO RESULTS FROM MILK OF MAG. polyethylene glycol 3350 [Miralax] 17 gram/dose Powder 17 g PO BID cyanocobalamin (vitamin B-12) 1,000 mcg/mL Kit 1,000 mcg SUBCUT MONTHLY Rx Instructions: GIVEN ON THE OF THE MONTH ondansetron HCl 4 mg Tablet 4 mg PO Q6H PRN (Reason: Nausea) carbamazepine 100 mg Tablet Extended Release 12 Hr 300 mg PO Q8 magnesium hydroxide 400 mg/5 mL Suspension 30 ml PO DIRECTED PRN (Reason: Constipation, NO BM X 3 DAYS) duloxetine [Cymbalta] 60 mg Capsule,Delayed Release(Dr/Ec) 120 mg PO QAM aripiprazole [Abilify] 15 mg Tablet 15 mg PO DAILY ammonium lactate 12 % Lotion 1 applic TOPICAL BID Rx Instructions: APPLY TO FEET sennosides-docusate sodium [Senna-S] 8.6-50 mg Tablet 2 tab-cap PO BID simethicone 125 mg Capsule 125 mg PO TID doxycycline hyclate 100 mg tablet 100 mg PO BID Rx Instructions: MRSA INFECTION OF LEFT HIP CHRONIC SUPRESSION cholecalciferol (vitamin D3) [Vitamin D3] 50 mcg (2,000 unit) Capsule 50 mcg PO DAILY diphenhydramine HCl [Benadryl] 25 mg Capsule 50 mg PO QID PRN (Reason: itching/hives) lactulose 10 gram/15 mL Solution 15 ml PO BID Ibsrela 50 mg tablet 50 mg PO BID Referrals Referrals: Ronny Burton [Primary Care Provider] -
[2025-03-03] MEDS: SODIUM CHLORIDE 0.9% 1,000 ML IV SCH (15:52)
[2025-03-03] MEDS: CEFEPIME 2000MG 2,000 MG/20 ML SYR IV STA (16:23)
[2025-03-03 16:25] LABS: Hematocrit (blood only) 35.9 % (42.0-52.0); Hemoglobin 12.4 g/dl (14.0-18.0); Immature Granulocytes # (auto) 0.07 K/uL (0.01-0.20); Immature Granulocytes % (auto) 0.5 %; Mean Corpuscular Hemoglobin 34.4 pg (25.0-34.0); Mean Corpuscular Volume 99.7 fL (80.0-100.0); Platelet Count 192 K/uL (130-400); RDW Standard Deviation 51.9 fL (36.4-46.3); Red Blood Count 3.60 M/uL (4.70-6.10); White Blood Count 14.41 K/ul (4.8-10.8)
[2025-03-03 16:44] LABS: Alanine Aminotransferase 15.0 U/L (7-52); Alkaline Phosphatase 93.0 U/L (34-104); Anion Gap 7.0 (3-11); Bilirubin,Total 0.6 mg/dl (0.2-1.0); Blood Urea Nitrogen 21.0 mg/dl (6-23); Calcium 8.6 mg/dl (8.6-10.3); Carbon Dioxide 29.0 mmol/L (21-32); Chloride 101.0 mmol/L (98-107); Creatinine Clr Calc Pharmacy 113.3 ml/min; Glucose 110.0 mg/dl (70-99(Fasting)); Magnesium 1.7 mg/dl (1.7-2.4); Potassium 4.1 mmol/L (3.5-5.1); Sodium 137.0 mmol/L (136-145); Total Protein 6.7 gm/dl (6.0-8.3)
--- NOTE | 2025-03-03 16:59 | XRay Report ---
Clinical History: Sepsis Technique: A frontal view of the chest was obtained Comparison is made to the chest CT dated 10/04/2024 Findings: A large hiatal hernia is again seen, with suspected adjacent left lower lobe atelectasis. The heart size is at the upper limit of normal. No pleural effusion or pneumothorax is seen. There is mild right lung base atelectasis No fracture is noted. No foreign body is seen Impression: 1. Large hiatal hernia 2. Bilateral lung base atelectasis Electronically signed by Roger Starr 03-03-2025 4:58 PM
[2025-03-03 17:38] LABS: Appearance Urine Cloudy (Clear); Bacteria Urine Automated 2+ (None Seen); Glucose Urine UA Negative (Negative); WBC Urine Automated >50 /hpf (0-5)
[2025-03-03] MEDS: ACETAMINOPHEN 500 MG TAB PO STA (19:03)
[2025-03-03] MEDS ORDERED: MEROPENEM 500 MG in SYRINGE 0 ML IV SCH (19:15)
--- NOTE | 2025-03-03 20:14 | History & Physical Report ---
Date of Service March 03, 2025 Assessment & Plan (1) Urethral stricture: (2) Neurogenic bladder: (3) UTI (urinary tract infection): (4) Hypothyroidism: (5) Schizophrenia: (6) COPD (chronic obstructive pulmonary disease): Plan 69 yo male with pmhx of neurogenic bladder, moderate COPD, PVD, HTN, HLD, IBS, epilepsy DALTON, schizoaffective disorder, class II obesity, bedbound status living at [facility], who presents from [facility] for rigors 2/2 complicated UTI vs. pyelonephritis. #Sepsis #Complicated UTI -patient with tachypnea, leukocytosis, symptoms of UTI and UA strongly consistent with UTI -cultures reviewed, some resistance to cefepime and other meds in past -due for suprapubic catheter in the next few weeks Plan: -start meropenem given prior cultures -f/u blood and urine cultures -continue fluid resuscitation -urology consult, appreciate recs (ordered) #Neurogenic Bladder #Paraplegia -continue medina, replaced in ED -continue tamulosin -continue home bowel regiment #Epilepsy -continue carbamazepime #Schizophrenia -continue duloxetine, abilify #Hypothyroidism -continue levothyroxine #Atelectasis -start incentive spirometer -large hiatal hernia on chest xray, incidental I spent a total of 80 minutes in direct patient care, including [id number] time with the patient and/or family, reviewing medical records, ordering and reviewing diagnostic tests, and coordinating care with other healthcare providers. This time includes: history taking, physical examination, medical decision making, counseling, ECG interpretation, imaging interpretation, lab interpretation, orders, and education, excluding time spent in the performance of separately billed services. History of Present Illness Chief Complaint: -rigors Primary Care Provider: [facility] 69 yo male with pmhx of neurogenic bladder, moderate COPD, PVD, HTN, HLD, IBS, epilepsy DALTON, schizoaffective disorder, class II obesity, bedbound status living at [facility], who presents from [facility] for rigors. Has not had any recent admissions at [facility]. Of note, was to have suprapubic catheter placed next week. In the ED, given abx, fluids, admitted to medicine. Patient seen and examined at bedside. Patient is doing ok today. He states at senior care was having rigors and strong shivers. Also was having fevers. Has had some abdominal discomfort over the past few days. Denies nausea, vomiting, chest pain, SOB, other symptoms. States it feels like a UTI. Some fatigue and worsening weakness as well. No alcohol use, no current tobacco use, no drug use, full code discussed with patient. Allergies Allergy/AdvReac Type Severity Reaction Status Date / Time loxapine AdvReac Intermediate restless Verified 01/31/25 14:30 and nervous morphine AdvReac Intermediate nausea/vomi Verified 01/31/25 14:30 ting Home Medications Medication Instructions Recorded Confirmed Type folic acid 1 mg tablet 1 mg PO QAM 07/21/20 01/31/25 History tamsulosin 0.4 mg capsule 0.4 mg PO HS #0 caps 08/23/20 01/31/25 Rx ascorbic acid (vitamin C) 500 mg 500 mg PO QAM 03/14/21 01/31/25 History capsule atorvastatin 10 mg tablet 10 mg PO HS 03/14/21 01/31/25 History furosemide 40 mg tablet 40 mg PO QAM 03/14/21 01/31/25 History metoprolol tartrate 50 mg tablet 50 mg PO BID 03/14/21 01/31/25 History potassium chloride 20 mEq 40 meq PO BID 03/14/21 01/31/25 History tablet,extended release(part/cryst) acetaminophen 325 mg tablet 650 mg (2 x 325 mg) PO Q4H PRN 03/18/21 01/31/25 Rx fever or pain #30 tabs levothyroxine 25 mcg tablet 25 mcg PO QAM 06/28/21 01/31/25 History timolol 0.5 % eye drops 1 drp ophthalmic (eye) DAILY 08/05/21 01/31/25 History aspirin 81 mg tablet,delayed 81 mg PO DAILY 08/13/21 01/31/25 History release (Corinne Low Dose Aspirin) bisacodyl 10 mg rectal suppository 10 mg SC DAILY PRN Constipation 08/13/21 01/31/25 History (Dulcolax (bisacodyl)) cyanocobalamin (vitamin B-12) 1,000 mcg subcut MONTHLY 08/13/21 01/31/25 History 1,000 mcg/mL injection kit polyethylene glycol 3350 17 17 g PO BID 08/13/21 01/31/25 History gram/dose oral powder (Miralax) ondansetron HCl 4 mg tablet 4 mg PO Q6H PRN Nausea 08/19/21 01/31/25 History carbamazepine 100 mg 300 mg PO Q8 08/04/22 01/31/25 History tablet,extended release,12 hr magnesium hydroxide 400 mg/5 mL 30 ml PO DIRECTED PRN 08/04/22 01/31/25 History oral suspension Constipation, NO BM X 3 DAYS duloxetine 60 mg capsule,delayed 120 mg PO QAM 01/26/23 01/31/25 History release (Cymbalta) aripiprazole 15 mg tablet (Abilify) 15 mg PO DAILY 05/12/23 01/31/25 History ammonium lactate 12 % lotion 1 applic topical BID 10/04/24 01/31/25 History cholecalciferol (vitamin D3) 50 50 mcg PO DAILY 10/04/24 01/31/25 History mcg (2,000 unit) capsule (Vitamin D3) doxycycline hyclate 100 mg tablet 100 mg PO BID 10/04/24 01/31/25 History sennosides 8.6 mg-docusate sodium 2 tab-cap PO BID 10/04/24 01/31/25 History 50 mg tablet (Senna-S) simethicone 125 mg capsule 125 mg PO TID 10/04/24 01/31/25 History diphenhydramine HCl 25 mg capsule 50 mg PO QID PRN itching/hives 01/31/25 01/31/25 History (Benadryl) lactulose 10 gram/15 mL oral 15 ml PO BID 01/31/25 01/31/25 History solution tenapanor 50 mg tablet (Ibsrela) 50 mg PO BID 01/31/25 01/31/25 History Past Med/Surg History Problem List (Updated 03/03/25 @ 20:23 by Sean Zhong MD) Sepsis Urethral stricture (Acute) Anemia Metabolic encephalopathy Complication, blocked Medina catheter (Acute) Encounter for pre-operative examination Neurogenic bladder Urinary retention UTI (urinary tract infection) Septic arthritis Chronic left hip pain Osteomyelitis 2020 per records Thoracic abscess 2020 per records Morbid obesity due to excess calories Severe muscle deconditioning Shortness of breath Pleural effusion Obesity Weakness (Acute) Hypotension (Acute) Anxiety (Acute) Depression (Acute) Glaucoma syndrome (Acute) Hematochezia (Acute) Hypothyroidism (Acute) Osteoarthritis of hip (Acute) Paranoid schizophrenia, chronic condition (Acute) Seizure disorder (Acute) Synovial cyst of popliteal space (Acute) Vitamin D deficiency (Acute) HLD (hyperlipidemia) HTN (hypertension) Chest pain No chest pain per 02/10/25 PCP note Noncompliance with medication regimen (Acute) Medical History (Updated 03/03/25 @ 20:23 by Sean Zhong MD) detention resident resident of [facility] Urinary retention Urethral stricture Severe muscle deconditioning Hx of osteomyelitis 2020 per records History of pleural effusion Osteoarthritis 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 per records Schizophrenia Personal history of COVID-19 Other megaloblastic anemias, not elsewhere classified Hypothyroidism Unspecified diastolic (congestive) heart failure Secondary hyperaldosteronism Other symbolic dysfunction Hx of respiratory failure Due to sepsis 07/2021 per records "Chronic hypoxemic respiratory failure- breathing stable" per PCP records 02/10/25 Hx of septic shock 07/2021 per records Neurogenic bladder History of anemia History of acute renal failure 2021 per records Depression HLD (hyperlipidemia) HTN (hypertension) COPD (chronic obstructive pulmonary disease) Anxiety Peripheral vascular disease Heart failure Epilepsy Paraplegia Indwelling Medina catheter present Glaucoma History of MRSA infection History of COVID-[address] [facility] records dated 02/27/2021 Neuromuscular dysfunction of bladder Discitis 07/2020 per records MRSA bacteremia Entered in 2020 GERD (gastroesophageal reflux disease) Surgical History Presence of urogenital implants History of colonoscopy History of appendectomy History of cholecystectomy History of wisdom tooth extraction History of umbilical hernia repair Family History Father Family history of diabetes mellitus Mother Family history of diabetes mellitus Brother Family history of diabetes mellitus Other No family history of adverse response to anesthesia Social History Smoking Status: Former smoker Tobacco Type: Cigarettes Cigarettes Per Day: unknown; Hx Alcohol Use: No Hx Substance Use: No Preferred Language: Hebrew Communication Ability: Effective Communication Ability Comment: per [facility] pt is of sound mind and can sign own consents Proposal Rep Required: No Beliefs That Will Affect Care: None marital status: Current Living Situation: Halfway Current Living Situation Comment: resident of [facility] How many Children do You have: 0 Feels Safe at Home: Yes Assistive Devices: Wheelchair Review of Systems Review of Systems: -negative unless listed aboved Physical Exam Physical Exam: Gen: A&O 3 NAD HEENT: NCAT, EOMI, not icteric. External ears normal. No rhinorrhea. Moist mucous membranes. Neck: Supple, full range of motion, no observable masses, No meningeal sign. Lungs: No Respiratory distress. CV: RRR, no edema. Abdomen: mild suprapubic tenderness to palpation MSK: No joint swelling, no redness. Skin: No rashes, petechiae, lesions. Normal color per patient. Neuro: Normal Gait, Grossly intact. Psych: Appropriate for situation. Results & Data Results & Data Vital Signs (Past 12 Hours) Vital Signs Temp Pulse Pulse Resp BP BP Pulse Ox 03/03/25 19:39 86 03/03/25 18:48 88 22 144/73 H 96 03/03/25 18:15 90 19 140/77 97 03/03/25 18:00 81 24 148/78 H 97 03/03/25 17:48 79 27 H 152/76 H 96 03/03/25 17:30 85 22 149/76 H 95 03/03/25 17:28 22 97 03/03/25 17:21 82 27 H 97 03/03/25 17:08 81 22 105/64 96 03/03/25 17:00 78 25 H 96 03/03/25 16:48 75 25 H 95 03/03/25 16:37 78 22 95 03/03/25 16:30 78 21 95 03/03/25 16:08 79 03/03/25 15:48 79 19 147/82 H 95 03/03/25 15:37 78 19 98 03/03/25 15:08 37.3 C 80 22 143/72 H 95 O2 Del Method 03/03/25 19:39 03/03/25 18:48 03/03/25 18:15 03/03/25 18:00 03/03/25 17:48 03/03/25 17:30 Room Air 03/03/25 17:28 Room Air 03/03/25 17:21 03/03/25 17:08 Room Air 03/03/25 17:00 03/03/25 16:48 03/03/25 16:37 Room Air 03/03/25 16:30 03/03/25 16:08 03/03/25 15:48 03/03/25 15:37 Room Air 03/03/25 15:08 Room Air Laboratory Results -personally reviewed, leukocytosis and tachypnea consistent with sepsis with urinary source,
[2025-03-03] MEDS: MEROPENEM 500 MG in SYRINGE 0 ML IV SCH (20:24)
[2025-03-03] MEDS: LACTATED RINGER'S 1,000 ML IV SCH (20:32)
--- NOTE | 2025-03-03 20:42 | Urology Consultation ---
Date of Consultation March 03, 2025 Assessment & Plan (1) UTI (urinary tract infection): The patient has been admitted on the hospitalist service. From a urologic perspective we recommend the following: Patient has received antibiotics in form of meropenem and cefepime. Antibiotic should continue to be tailored based on pending culture results Patient has a history of neurogenic bladder and he therefore is had a Gardner catheter placed at this time. This should be maintained for maximal urinary drainage Will notify Dr. Sharp of patient's admission as he is scheduled to have a suprapubic catheter placed this coming March 08 as noted history of present illness portion of this document. Dr. Sharp will make a determination if he will proceed with this procedure or if we will wait until the patient's urinary tract infection has been further treated Additional recommendations to be forthcoming based on his clinical course as unfolds Supervising Physician Co-Signing Physician Notes Discussed patient with SILVIA. Rounded on patient personally. Hard to tell if this is a true UTI as he is colonized but given that he is feeling better, suspect that may be the case. He is scheduled for a suprapubic placement this Thursday but I explained that we should postpone that procedure given its elective and he is currently admitted for a UTI. I will have my schedulers reschedule this surgery on Thursday. Urology to sign off. History of Present Illness Reason for Consultation: Urinary tract infection History of Present Illness This is a 69-year-old male known to [facility] urology. The patient has a history of neurogenic bladder and he notes that he is scheduled to have a suprapubic catheter placed by Dr. Tong Sharp this coming March 16. Patient lives at skilled nursing ([facility]) and he was noted to be having rigors and shivers. In addition the patient was having fevers as well as some suprapubic abdominal discomfort. He has not had any nausea or vomiting. He denies any back or flank pain. In addition the patient notes also he is having some worsening fatigue and weakness. The patient says that he has had urinary tract infections in the past and was concerned about this at the present time so he presented to the emergency department. In the emergency department the patient has had labs and imaging which I independent reviewed. Chest x-ray showed bilateral atelectasis but there were no pleural effusions or infiltrates noted. Labs including CBC were white blood cell count was elevated 14.4. Hemoglobin and hematocrit were 12.4 and 35.9. Platelet count was normal. Chemistry profile showed sodium and potassium were normal. His BUN and creatinine were normal. Urinalysis was negative for nitrites but had pyuria with greater than 50 white blood cells per high-power field, 3+ leukocyte esterase, and 2+ bacteria. Since arrival to emergency department he has had a Gardner catheter placed and he was resting comfortably bed in no distress. Allergies Allergy/AdvReac Type Severity Reaction Status Date / Time loxapine AdvReac Intermediate restless Verified 01/31/25 14:30 and nervous morphine AdvReac Intermediate nausea/vomi Verified 01/31/25 14:30 ting Home Medications Medication Instructions Recorded Confirmed Type folic acid 1 mg tablet 1 mg PO QAM 07/21/20 01/31/25 History tamsulosin 0.4 mg capsule 0.4 mg PO HS #0 caps 08/23/20 01/31/25 Rx ascorbic acid (vitamin C) 500 mg 500 mg PO QAM 03/14/21 01/31/25 History capsule atorvastatin 10 mg tablet 10 mg PO HS 03/14/21 01/31/25 History furosemide 40 mg tablet 40 mg PO QAM 03/14/21 01/31/25 History metoprolol tartrate 50 mg tablet 50 mg PO BID 03/14/21 01/31/25 History potassium chloride 20 mEq 40 meq PO BID 03/14/21 01/31/25 History tablet,extended release(part/cryst) acetaminophen 325 mg tablet 650 mg (2 x 325 mg) PO Q4H PRN 03/18/21 01/31/25 Rx fever or pain #30 tabs levothyroxine 25 mcg tablet 25 mcg PO QAM 06/28/21 01/31/25 History timolol 0.5 % eye drops 1 drp ophthalmic (eye) DAILY 08/05/21 01/31/25 History aspirin 81 mg tablet,delayed 81 mg PO DAILY 08/13/21 01/31/25 History release (Corinne Low Dose Aspirin) bisacodyl 10 mg rectal suppository 10 mg MS DAILY PRN Constipation 08/13/21 01/31/25 History (Dulcolax (bisacodyl)) cyanocobalamin (vitamin B-12) 1,000 mcg subcut MONTHLY 08/13/21 01/31/25 History 1,000 mcg/mL injection kit polyethylene glycol 3350 17 17 g PO BID 08/13/21 01/31/25 History gram/dose oral powder (Miralax) ondansetron HCl 4 mg tablet 4 mg PO Q6H PRN Nausea 08/19/21 01/31/25 History carbamazepine 100 mg 300 mg PO Q8 08/04/22 01/31/25 History tablet,extended release,12 hr magnesium hydroxide 400 mg/5 mL 30 ml PO DIRECTED PRN 08/04/22 01/31/25 History oral suspension Constipation, NO BM X 3 DAYS duloxetine 60 mg capsule,delayed 120 mg PO QAM 01/26/23 01/31/25 History release (Cymbalta) aripiprazole 15 mg tablet (Abilify) 15 mg PO DAILY 05/12/23 01/31/25 History ammonium lactate 12 % lotion 1 applic topical BID 10/04/24 01/31/25 History cholecalciferol (vitamin D3) 50 50 mcg PO DAILY 10/04/24 01/31/25 History mcg (2,000 unit) capsule (Vitamin D3) doxycycline hyclate 100 mg tablet 100 mg PO BID 10/04/24 01/31/25 History sennosides 8.6 mg-docusate sodium 2 tab-cap PO BID 10/04/24 01/31/25 History 50 mg tablet (Senna-S) simethicone 125 mg capsule 125 mg PO TID 10/04/24 01/31/25 History diphenhydramine HCl 25 mg capsule 50 mg PO QID PRN itching/hives 01/31/25 01/31/25 History (Benadryl) lactulose 10 gram/15 mL oral 15 ml PO BID 01/31/25 01/31/25 History solution tenapanor 50 mg tablet (Ibsrela) 50 mg PO BID 01/31/25 01/31/25 History Patient History Medical History [facility] resident resident of [facility] Urinary retention Urethral stricture Severe muscle deconditioning Hx of osteomyelitis 2020 per records History of pleural effusion Osteoarthritis 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 per records Schizophrenia Personal history of COVID-19 Other megaloblastic anemias, not elsewhere classified Hypothyroidism Unspecified diastolic (congestive) heart failure Secondary hyperaldosteronism Other symbolic dysfunction Hx of respiratory failure Due to sepsis 07/2021 per records "Chronic hypoxemic respiratory failure- breathing stable" per PCP records 02/10/25 Hx of septic shock 07/2021 per records Neurogenic bladder History of anemia History of acute renal failure 2021 per records Depression HLD (hyperlipidemia) HTN (hypertension) COPD (chronic obstructive pulmonary disease) Anxiety Peripheral vascular disease Heart failure Epilepsy Paraplegia Indwelling Gardner catheter present Glaucoma History of MRSA infection History of COVID-19 per [facility] records dated 02/27/2021 Neuromuscular dysfunction of bladder Discitis 07/2020 per records MRSA bacteremia Entered in 2020 GERD (gastroesophageal reflux disease) Surgical History Presence of urogenital implants History of colonoscopy History of appendectomy History of cholecystectomy History of wisdom tooth extraction History of umbilical hernia repair Family History Father Family history of diabetes mellitus Mother Family history of diabetes mellitus Brother Family history of diabetes mellitus Other No family history of adverse response to anesthesia Social History Smoking Status: Former smoker Tobacco Type: Cigars Cigarettes Per Day: 3-4 packs a day. Mini Cigars called Luanne.; Smoking End Date: Quit 5 years ago.; Second Hand Exposure: No; Do You Dip or Chew Tobacco: No; Tobacco Cessation Education Requested by Patient: No Hx Alcohol Use: No Hx Substance Use: No Preferred Language: Vietnamese Communication Ability: Effective Communication Ability Comment: Per [facility] pt is of sound mind and can sign own consents Naphthalene Still Operator Required: No Beliefs That Will Affect Care: None marital status: Current Living Situation: Custodial Current Living Situation Comment: [facility]. Resident of [facility]. How many Children do You have: 0 Other Information That Helps Us Care for You: No Feels Safe at Home: Yes Safety Concerns: Feels Safe At This Time Assistive Devices: Glasses, Hospital Bed, Mechanical Lift and Wheelchair Review of Systems Review of Systems: All systems reviewed & are unremarkable except as noted in HPI & below Physical Exam Constitutional: WD/WN, vitals as above Eyes: Wears glasses ENMT: Ears: no hearing impairment Neck: trachea midline Respiratory: normal respiratory effort; no respiratory distress and no labored breathing Cardiovascular: Rate/Rhythm: regular rate and regular rhythm Gastrointestinal (Abdomen): Patient's abdomen is rotund but soft. There is no rigidity. There are no signs of peritonitis such as rebound tenderness or guarding. No pain with palpation Musculoskeletal: No calf tenderness Skin: no rashes Psychiatric: A+Ox3, euthymic affect Genitourinary: No CVA tenderness with percussion bilaterally Results & Data Vital Signs (Past 12 Hours) Vital Signs Temp Pulse Pulse Resp BP BP Pulse Ox 03/03/25 19:39 86 03/03/25 18:48 88 22 144/73 H 96 03/03/25 18:15 90 19 140/77 97 03/03/25 18:00 81 24 148/78 H 97 03/03/25 17:48 79 27 H 152/76 H 96 03/03/25 17:30 85 22 149/76 H 95 03/03/25 17:28 22 97 03/03/25 17:21 82 27 H 97 03/03/25 17:08 81 22 105/64 96 03/03/25 17:00 78 25 H 96 03/03/25 16:48 75 25 H 95 03/03/25 16:37 78 22 95 03/03/25 16:30 78 21 95 03/03/25 16:08 79 03/03/25 15:48 79 19 147/82 H 95 03/03/25 15:37 78 19 98 03/03/25 15:08 37.3 C 80 22 143/72 H 95 O2 Del Method 03/03/25 19:39 03/03/25 18:48 03/03/25 18:15 03/03/25 18:00 03/03/25 17:48 03/03/25 17:30 Room Air 03/03/25 17:28 Room Air 03/03/25 17:21 03/03/25 17:08 Room Air 03/03/25 17:00 03/03/25 16:48 03/03/25 16:37 Room Air 03/03/25 16:30 03/03/25 16:08 03/03/25 15:48 03/03/25 15:37 Room Air 03/03/25 15:08 Room Air PG Care Time/CCT Total # of Minutes Spent Total Time Spent with Patient: Total time spent is greater than 50% in coordination of care (as documented) at patient's floor/unit and/or counseling patient: Coding Level of Care Code 87660 INT INP/OBS CARE 3/75MIN Diagnoses UTI (urinary tract infection) N39.0
[2025-03-03] MEDS ORDERED: ONDANSETRON INJ 2 MG/ML 2 ML VIAL IV PRN (23:27)
[2025-03-03] MEDS ORDERED: POLYETHYLENE (MIRALAX) 17 GM PACK PO PRN (23:27)
[2025-03-04] MEDS: ATORVASTATIN 10 MG TAB PO SCH (00:37)
[2025-03-04] MEDS: DOCUSATE SODIUM/SENNA 50/8.6MG TAB PO SCH (00:37)
[2025-03-04] MEDS: METOPROLOL TARTRATE 50 MG TAB PO SCH (00:37)
[2025-03-04] MEDS: POLYETHYLENE (MIRALAX) 17 GM PACK PO SCH (00:37)
[2025-03-04] MEDS: TAMSULOSIN HCL 0.4 MG CAP PO SCH (00:38)
[2025-03-04] MEDS: LEVOTHYROXINE SODIUM 25 MCG TABLET PO SCH (06:29)
[2025-03-04 07:27] LABS: Hematocrit (blood only) 31.7 % (42.0-52.0); Hemoglobin 10.6 g/dl (14.0-18.0); Mean Corpuscular Hemoglobin 33.4 pg (25.0-34.0); Mean Corpuscular Volume 100.0 fL (80.0-100.0); Platelet Count 167 K/uL (130-400); RDW Standard Deviation 53.1 fL (36.4-46.3); Red Blood Count 3.17 M/uL (4.70-6.10); White Blood Count 10.99 K/ul (4.8-10.8)
[2025-03-04 07:44] LABS: Anion Gap 5.0 (3-11); Blood Urea Nitrogen 16.0 mg/dl (6-23); Calcium 8.1 mg/dl (8.6-10.3); Carbon Dioxide 28.0 mmol/L (21-32); Chloride 105.0 mmol/L (98-107); Creatinine Clr Calc Pharmacy 125.0 ml/min; Glucose 100.0 mg/dl (70-99(Fasting)); Magnesium 1.8 mg/dl (1.7-2.4); Potassium 4.1 mmol/L (3.5-5.1); Sodium 138.0 mmol/L (136-145)
[2025-03-04] MEDS: LACTULOSE SYRUP 20 GM/30 ML UDC PO SCH (08:48)
[2025-03-04] MEDS: ARIPiprazole 15 MG TAB PO SCH (08:49)
[2025-03-04] MEDS: ASPIRIN 81 MG ECTAB PO SCH (08:49)
[2025-03-04] MEDS: ACETAMINOPHEN 325 MG TAB PO PRN (09:36)
--- NOTE | 2025-03-04 15:07 | Hospitalist Progress Note ---
Date of Service March 04, 2025 Assessment & Plan (1) Urethral stricture: (2) Neurogenic bladder: (3) UTI (urinary tract infection): (4) Hypothyroidism: (5) Schizophrenia: (6) COPD (chronic obstructive pulmonary disease): Plan 69 yo male with pmhx of neurogenic bladder, moderate COPD, PVD, HTN, HLD, IBS, epilepsy DALTON, schizoaffective disorder, class II obesity, bedbound status living at [facility], who presents from [facility] for rigors 2/2 complicated UTI vs. pyelonephritis. #Sepsis #Complicated UTI -patient with tachypnea, leukocytosis, symptoms of UTI and UA strongly consistent with UTI -cultures reviewed, some resistance to cefepime and other meds in past -due for suprapubic catheter in the next few weeks Plan: -start meropenem given prior cultures - urine culture growing 3 types of organisms and repeat collection recommended Blood cultures are pending -continue fluid resuscitation -Patient remains stable without any fever and no chills and no other symptoms - appreciate urology input and recommendation for possible suprapubic cystostomy on Thursday #Neurogenic Bladder #Paraplegia -continue medina, replaced in ED -continue tamulosin -continue home bowel regiment Will have suprapubic cystostomy on Thursday #Epilepsy -continue carbamazepime #Schizophrenia -continue duloxetine, abilify #Hypothyroidism -continue levothyroxine #Atelectasis -start incentive spirometer -large hiatal hernia on chest xray, incidental Admission and Anticipated Discharge Date Admission Date: March 03, 2025 Subjective 03/04/2025 The patient was seen and examined in medical floor He remains afebrile and denies any other significant symptoms Does not have any abdominal pain, nausea and/or vomiting Review of Systems 2 Review of Systems: All systems reviewed and are unremarkable except as noted below Physical Exam Physical Exam: Lying in bed without any acute distress Constitutional: well developed, well nourished, + ill appearing and + obese Eyes: PERRL, conjunctivae normal, anicteric sclerae ENMT: external ear and nose normal, oropharynx normal Neck: trachea midline, no thyromegaly Respiratory: no respiratory distress Auscultation: lungs clear to auscultation bilaterally Cardiovascular: Rate/Rhythm: regular rate and regular rhythm; not tachycardic Heart Sounds: normal S1 and normal S2; no murmur Extremities: + edema ( trace edema bilaterally) Gastrointestinal (Abdomen): Inspection/Auscultation: normal bowel sounds; abdomen not distended Percussion/Palpation: abdomen soft; abdomen nontender Musculoskeletal: No acute arthritis involving any of the joint Neurologic: normal touch/pain/proprioception and moves all extremities; no focal motor deficits Lymphatic: no cervical or axillary lymphadenopathy Results & Data Results & Data Vital Signs (Past 12 Hours) Vital Signs Temp Pulse Resp BP Pulse Ox O2 Del Method 03/04/25 07:27 36.8 C 71 16 110/71 97 Room Air 03/04/25 07:06 Room Air Laboratory Results Short CBC 03/03/25 03/04/25 Range/Units 15:50 06:28 WBC 14.41 H 10.99 H (4.8-10.8) K/ul Hgb 12.4 L 10.6 L (14.0-18.0) g/dl Hct 35.9 L 31.7 L (42.0-52.0) % Plt Count 192 167 (130-400) K/uL BMP 03/03/25 03/04/25 15:50 06:28 Sodium 137 138 Potassium 4.1 4.1 Chloride 101 105 Carbon Dioxide 29 28 BUN 21 16 Creatinine 0.85 0.77 Glucose 110 H 100 H Calcium 8.6 8.1 L Liver Function 03/03/25 Range/Units 15:50 Total Bilirubin 0.6 (0.2-1.0) mg/dl Direct Bilirubin 0.1 (0-0.2) mg/dl AST 13 (13-39) U/L ALT 15 (7-52) U/L Alkaline Phosphatase 93 (34-104) U/L Albumin 3.6 (3.4-5.0) gm/dl Urine 03/03/25 Range/Units 17:12 Urine Color Yellow Urine Appearance Cloudy A (Clear) Urine pH 5.0 (4.5-7.5) Ur Specific [place] 1.018 (1.000-1.030) Urine Protein Trace H (Negative) Urine Glucose (UA) Negative (Negative) Medications Administered Current Inpatient Medications Acetaminophen (Acetaminophen 325 Mg Tab) 650 mg PO Q4H PRN PRN Reason: pain/fever Stop: 04/02/25 23:26 Last Admin: 03/04/25 09:36 Dose: 650 mg Aripiprazole (Aripiprazole 15 Mg Tab) 15 mg PO DAILY KAYODE Stop: 04/03/25 08:59 Last Admin: 03/04/25 08:49 Dose: 15 mg Aspirin (Aspirin 81 Mg Ectab) 81 mg PO DAILY KAYODE Stop: 04/03/25 08:59 Last Admin: 03/04/25 08:49 Dose: 81 mg Atorvastatin Calcium (Atorvastatin 10 Mg Tab) 10 mg PO HS KAYODE Stop: 04/02/25 23:26 Last Admin: 03/04/25 00:37 Dose: 10 mg Bisacodyl (Bisacodyl 10 Mg Supp) 10 mg [place] DAILY PRN PRN Reason: Constipation Stop: 04/02/25 23:26 Carbamazepine (Carbamazepine 100 Mg Chew Tab) 300 mg PO Q8 [facility] Stop: 04/02/25 23:26 Last Admin: 03/04/25 14:36 Dose: 300 mg Duloxetine HCl (Duloxetine Hcl 60 Mg Cap) 120 mg PO QAM [facility] Stop: 04/03/25 08:59 Last Admin: 03/04/25 08:49 Dose: 120 mg Meropenem 500 mg/ Syringe 10 mls @ 2 mls/min IV Q6H [facility]; Protocol Stop: 03/13/25 19:14 Last Admin: 03/04/25 14:36 Dose: 2 mls/min Lactated Ringer's (Lr) 1,000 mls @ 100 mls/hr IV .Q10H [facility] Stop: 03/07/25 07:00 Last Admin: 03/04/25 06:28 Dose: 100 mls/hr Lactulose (Lactulose Syrup 20 Gm/30 Ml Udc) 10 gm PO BID KAYODE Stop: 04/03/25 08:59 Last Admin: 03/04/25 08:48 Dose: 10 gm Levothyroxine Sodium (Levothyroxine Sodium 25 Mcg Tablet) 25 mcg PO DAILYBB KAYODE Stop: 04/03/25 06:29 Last Admin: 03/04/25 06:29 Dose: 25 mcg Metoprolol Tartrate (Metoprolol Tartrate 50 Mg Tab) 50 mg PO BID [facility] Stop: 04/02/25 23:26 Last Admin: 03/04/25 08:49 Dose: 50 mg Ondansetron HCl (Ondansetron Inj 2 Mg/Ml 2 Ml Vial) 4 mg IV Q6H PRN PRN Reason: Nausea Stop: 04/02/25 23:26 Polyethylene Glycol (Polyethylene (Miralax) 17 Gm Pack) 17 gm PO DAILY PRN PRN Reason: Constipation Stop: 04/02/25 23:26 Polyethylene Glycol (Polyethylene (Miralax) 17 Gm Pack) 17 gm PO BID KAYODE Stop: 04/02/25 23:26 Last Admin: 03/04/25 08:48 Dose: 17 gm Senna/Docusate Sodium (Docusate Sodium/Senna 50/8.6mg Tab) 2 tab PO BID KAOYDE Stop: 04/02/25 23:26 Last Admin: 03/04/25 08:48 Dose: 2 tab Tamsulosin HCl (Tamsulosin Hcl 0.4 Mg Cap) 0.4 mg PO HS [facility] Stop: 04/02/25 23:26 Last Admin: 03/04/25 00:38 Dose: 0.4 mg
[2025-03-05 07:10] LABS: Hematocrit (blood only) 33.4 % (42.0-52.0); Hemoglobin 10.8 g/dl (14.0-18.0); Mean Corpuscular Hemoglobin 33.1 pg (25.0-34.0); Mean Corpuscular Volume 102.5 fL (80.0-100.0); Platelet Count 160 K/uL (130-400); RDW Standard Deviation 53.9 fL (36.4-46.3); Red Blood Count 3.26 M/uL (4.70-6.10); White Blood Count 6.89 K/ul (4.8-10.8)
[2025-03-05 07:44] LABS: Anion Gap 6.0 (3-11); Blood Urea Nitrogen 14.0 mg/dl (6-23); Calcium 8.5 mg/dl (8.6-10.3); Carbon Dioxide 29.0 mmol/L (21-32); Chloride 105.0 mmol/L (98-107); Creatinine Clr Calc Pharmacy 130.1 ml/min; Glucose 87.0 mg/dl (70-99(Fasting)); Potassium 4.0 mmol/L (3.5-5.1); Sodium 140.0 mmol/L (136-145)
[2025-03-05] MEDS: SIMETHICONE 80 MG CHEW PO PRN (10:23)
--- NOTE | 2025-03-05 11:26 | Hospitalist Progress Note ---
Date of Service March 05, 2025 Assessment & Plan (1) Urethral stricture: (2) Neurogenic bladder: (3) UTI (urinary tract infection): (4) Hypothyroidism: (5) Schizophrenia: (6) COPD (chronic obstructive pulmonary disease): Plan 69 yo male with pmhx of neurogenic bladder, moderate COPD, PVD, HTN, HLD, IBS, epilepsy DALTON, schizoaffective disorder, class II obesity, bedbound status living at [facility], who presents from [facility] for rigors 2/2 complicated UTI vs. pyelonephritis. #Sepsis #Complicated UTI -patient with tachypnea, leukocytosis, symptoms of UTI and UA strongly consistent with UTI -cultures reviewed, some resistance to cefepime and other meds in past -due for suprapubic catheter in the next few weeks Plan: -start meropenem given prior cultures - urine culture growing 3 types of organisms and repeat collection recommended Blood cultures are pending -continue fluid resuscitation -Patient remains stable without any fever and no chills and no other symptoms - appreciate urology input and recommendation for possible suprapubic cystostomy on Thursday Remains stable and afebrile and complains some abdominal distention with increasing gas Simethicone has been prescribed and he is already on bowel regimen #Neurogenic Bladder #Paraplegia -continue medina, replaced in ED -continue tamulosin -continue home bowel regiment Will have suprapubic cystostomy on Thursday #Epilepsy -continue carbamazepime #Schizophrenia -continue duloxetine, abilify #Hypothyroidism -continue levothyroxine #Atelectasis -start incentive spirometer -large hiatal hernia on chest xray, incidental Admission and Anticipated Discharge Date Admission Date: March 03, 2025 Subjective 03/04/2025 The patient was seen and examined in medical floor He remains afebrile and denies any other significant symptoms Does not have any abdominal pain, nausea and/or vomiting 03/05/2025 The patient was seen and examined in medical floor He complains of abdominal distention and gaseous feeling Bowel has moved and denies any abdominal pain, nausea and vomiting Review of Systems Review of Systems: All systems reviewed and are unremarkable except as noted below Physical Exam Physical Exam: Lying in bed without any acute distress Constitutional: well developed, well nourished, + ill appearing and + obese Eyes: PERRL, conjunctivae normal, anicteric sclerae ENMT: external ear and nose normal, oropharynx normal Neck: trachea midline, no thyromegaly Respiratory: no respiratory distress Auscultation: lungs clear to auscultation bilaterally Cardiovascular: Rate/Rhythm: regular rate and regular rhythm; not tachycardic Heart Sounds: normal S1 and normal S2; no murmur Extremities: + edema ( t race edema bilaterally) Gastrointestinal (Abdomen): Inspection/Auscultation: + abdomen distended and normal bowel sounds Percussion/Palpation: abdomen soft; abdomen nontender Neurologic: normal touch/pain/proprioception and moves all extremities; no focal motor deficits Lymphatic: no cervical or axillary lymphadenopathy Results & Data Results & Data Vital Signs (Past 12 Hours) Vital Signs Temp Pulse Pulse Resp BP Pulse Ox O2 Del Method 03/05/25 08:15 70 03/05/25 07:37 36.4 C L 56 L 16 139/80 95 Room Air 03/04/25 23:47 36.8 C 78 18 111/67 95 Room Air Laboratory Results Short CBC 03/05/25 Range/Units 05:37 WBC 6.89 (4.8-10.8) K/ul Hgb 10.8 L (14.0-18.0) g/dl Hct 33.4 L (42.0-52.0) % Plt Count 160 (130-400) K/uL BMP 03/05/25 05:37 Sodium 140 Potassium 4.0 Chloride 105 Carbon Dioxide 29 BUN 14 Creatinine 0.74 Glucose 87 Calcium 8.5 L Medications Administered Current Inpatient Medications Acetaminophen (Acetaminophen 325 Mg Tab) 650 mg PO Q4H PRN PRN Reason: pain/fever Stop: 04/02/25 23:26 Last Admin: 03/04/25 21:58 Dose: 650 mg Aripiprazole (Aripiprazole 15 Mg Tab) 15 mg PO DAILY KAYODE Stop: 04/03/25 08:59 Last Admin: 03/05/25 08:16 Dose: 15 mg Aspirin (Aspirin 81 Mg Ectab) 81 mg PO DAILY KAYODE Stop: 04/03/25 08:59 Last Admin: 03/05/25 08:17 Dose: 81 mg Atorvastatin Calcium (Atorvastatin 10 Mg Tab) 10 mg PO HS KAYODE Stop: 04/02/25 23:26 Last Admin: 03/04/25 22:00 Dose: 10 mg Bisacodyl (Bisacodyl 10 Mg Supp) 10 mg [place] DAILY PRN PRN Reason: Constipation Stop: 04/02/25 23:26 Last Admin: 03/05/25 03:15 Dose: 10 mg Carbamazepine (Carbamazepine 100 Mg Chew Tab) 300 mg PO Q8 [facility] Stop: 04/02/25 23:26 Last Admin: 03/05/25 05:33 Dose: 300 mg Duloxetine HCl (Duloxetine Hcl 60 Mg Cap) 120 mg PO QAM [facility] Stop: 04/03/25 08:59 Last Admin: 03/05/25 08:17 Dose: 120 mg Meropenem 500 mg/ Syringe 10 mls @ 2 mls/min IV Q6H [facility]ODE; Protocol Stop: 03/13/25 19:14 Last Admin: 03/05/25 06:01 Dose: 2 mls/min Lactated Ringer's (Lr) 1,000 mls @ 100 mls/hr IV .Q10H [facility] Stop: 03/07/25 07:00 Last Admin: 03/05/25 03:59 Dose: 100 mls/hr Lactulose (Lactulose Syrup 20 Gm/30 Ml Udc) 10 gm PO BID KAYODE Stop: 04/03/25 08:59 Last Admin: 03/05/25 08:16 Dose: 10 gm Levothyroxine Sodium (Levothyroxine Sodium 25 Mcg Tablet) 25 mcg PO DAILYBB [facility] Stop: 04/03/25 06:29 Last Admin: 03/05/25 05:33 Dose: 25 mcg Metoprolol Tartrate (Metoprolol Tartrate 50 Mg Tab) 50 mg PO BID [facility] Stop: 04/02/25 23:26 Last Admin: 03/05/25 08:17 Dose: 50 mg Ondansetron HCl (Ondansetron Inj 2 Mg/Ml 2 Ml Vial) 4 mg IV Q6H PRN PRN Reason: Nausea Stop: 04/02/25 23:26 Polyethylene Glycol (Polyethylene (Miralax) 17 Gm Pack) 17 gm PO DAILY PRN PRN Reason: Constipation Stop: 04/02/25 23:26 Polyethylene Glycol (Polyethylene (Miralax) 17 Gm Pack) 17 gm PO BID [facility] Stop: 04/02/25 23:26 Last Admin: 03/05/25 08:16 Dose: 17 gm Senna/Docusate Sodium (Docusate Sodium/Senna 50/8.6mg Tab) 2 tab PO BID [facility]ODE Stop: 04/02/25 23:26 Last Admin: 03/05/25 08:16 Dose: 2 tab Simethicone (Simethicone 80 Mg Chew) 80 mg PO Q6H PRN PRN Reason: Flatulence Stop: 04/04/25 09:54 Last Admin: 03/05/25 10:23 Dose: 80 mg Tamsulosin HCl (Tamsulosin Hcl 0.4 Mg Cap) 0.4 mg PO HS [facility]ODE Stop: 04/02/25 23:26 Last Admin: 03/04/25 22:00 Dose: 0.4 mg
[2025-03-06 06:54] LABS: Hematocrit (blood only) 31.7 % (42.0-52.0); Hemoglobin 10.4 g/dl (14.0-18.0); Mean Corpuscular Hemoglobin 33.5 pg (25.0-34.0); Mean Corpuscular Volume 102.3 fL (80.0-100.0); Platelet Count 164 K/uL (130-400); RDW Standard Deviation 53.5 fL (36.4-46.3); Red Blood Count 3.10 M/uL (4.70-6.10); White Blood Count 5.46 K/ul (4.8-10.8)
[2025-03-06 07:20] LABS: Anion Gap 4.0 (3-11); Blood Urea Nitrogen 12.0 mg/dl (6-23); Calcium 8.3 mg/dl (8.6-10.3); Carbon Dioxide 30.0 mmol/L (21-32); Chloride 105.0 mmol/L (98-107); Creatinine Clr Calc Pharmacy 120.4 ml/min; Glucose 99.0 mg/dl (70-99(Fasting)); Potassium 4.2 mmol/L (3.5-5.1); Sodium 139.0 mmol/L (136-145)
[2025-03-06 11:27] LABS: Appearance Urine Clear (Clear); Glucose Urine UA Negative (Negative)
[2025-03-06 11:54] LABS: Epithelial Cell Urine 0-2 /hpf (0-2)
--- NOTE | 2025-03-06 12:44 | XRay Report ---
KUB HISTORY: r/o SBO COMPARISON STUDY: 10/04/2024 FINDINGS: There is diffuse colonic distention measuring up to 15 cm diameter at the sigmoid colon, mi ldly progressive compared to the prior exam. No small bowel distention seen. No gross free air. IMPRESSION: Mildly progressive colonic distention ACT 112: Negative or not required by law. The above report was generated using voice recognition software. It may contain grammatical, syntax o r spelling errors. Electronically signed by: Angel Garcia M.D. 03/06/2025 12:43 PM
[2025-03-06] MEDS: ERTAPENEM 1000MG 1,000 MG/10 ML SYR IV SCH (13:06)
[2025-03-06] MEDS: SOD PHOSPHATE/SOD BIPHOSPHATE ENEMA 132 ML BTL PR STA (14:17)
--- NOTE | 2025-03-06 14:25 | Hospitalist Progress Note ---
Date of Service March 06, 2025 Assessment & Plan (1) Urethral stricture: (2) Neurogenic bladder: (3) UTI (urinary tract infection): (4) Hypothyroidism: (5) Schizophrenia: (6) COPD (chronic obstructive pulmonary disease): Plan 69 yo male with pmhx of neurogenic bladder, moderate COPD, PVD, HTN, HLD, IBS, epilepsy DALTON, schizoaffective disorder, class II obesity, bedbound status living at [facility], who presents from [facility] for rigors 2/2 complicated UTI vs. pyelonephritis. #Sepsis #Complicated UTI -patient with tachypnea, leukocytosis, symptoms of UTI and UA strongly consistent with UTI -cultures reviewed, some resistance to cefepime and other meds in past -due for suprapubic catheter in the next few weeks Plan: -start meropenem given prior cultures - urine culture growing 3 types of organisms and repeat collection recommended Blood cultures - negative -continue fluid resuscitation -Patient remains stable without any fever and no chills and no other symptoms - appreciate urology input and recommendation for possible suprapubic cystostomy on Thursday Remains stable and afebrile and complains some abdominal distention with increasing gas Simethicone has been prescribed and he is already on bowel regimen -Cystostomy tube will not be placed for another 3 to 4 weeks as per the urologist Repeat urine culture has been sent and will continue current antibiotic for a total of 7 to 10 days Abdominal distention Little discomfort without pain and without nausea no vomiting KUB did not show any obstruction but mild colonic distention Minimal bowel movement and will try Fleet enema #Neurogenic Bladder #Paraplegia -continue medina, replaced in ED -continue tamulosin -continue home bowel regiment Will have suprapubic cystostomy on Thursday #Epilepsy -continue carbamazepime #Schizophrenia -continue duloxetine, abilify #Hypothyroidism -continue levothyroxine #Atelectasis -start incentive spirometer -large hiatal hernia on chest xray, incidental DVT prophylaxis SQ Heparin Admission and Anticipated Discharge Date Admission Date: March 03, 2025 Subjective 03/04/2025 The patient was seen and examined in medical floor He remains afebrile and denies any other significant symptoms Does not have any abdominal pain, nausea and/or vomiting 03/05/2025 The patient was seen and examined in medical floor He complains of abdominal distention and gaseous feeling Bowel has moved and denies any abdominal pain, nausea and vomiting 03/06/2025 The patient was seen and examined in the medical floor He has been complaining of abdominal distention and discomfort Minimal bowel movement but no nausea and/or vomiting Review of Systems Review of Systems: All systems reviewed and are unremarkable except as noted below Physical Exam Physical Exam: Lying in bed without any acute distress Constitutional: well developed, well nourished, + ill appearing and + obese Eyes: PERRL, conjunctivae normal, anicteric sclerae ENMT: external ear and nose normal, oropharynx normal Neck: trachea midline, no thyromegaly Respiratory: no respiratory distress Auscultation: lungs clear to auscultation bilaterally Cardiovascular: Rate/Rhythm: regular rate and regular rhythm; not tachycardic Heart Sounds: normal S1 and normal S2; no murmur Extremities: + edema ( trace edema bilaterally) Gastrointestinal (Abdomen): Inspection/Auscultation: + abdomen distended and normal bowel sounds Percussion/Palpation: abdomen soft; abdomen nontender Musculoskeletal: No acute arthritis involving any of the joint Neurologic: normal touch/pain/proprioception and moves all extremities; no focal motor deficits Lymphatic: no cervical or axillary lymphadenopathy Results & Data Results & Data Vital Signs (Past 12 Hours) Vital Signs Temp Pulse Resp BP Pulse Ox O2 Del Method 03/06/25 11:45 36.4 C L 65 18 146/76 H 99 Room Air 03/06/25 08:03 36.5 C 58 L 17 129/74 89 L Room Air Laboratory Results Short CBC 03/06/25 Range/Units 06:20 WBC 5.46 (4.8-10.8) K/ul Hgb 10.4 L (14.0-18.0) g/dl Hct 31.7 L (42.0-52.0) % Plt Count 164 (130-400) K/uL BMP 03/06/25 06:20 Sodium 139 Potassium 4.2 Chloride 105 Carbon Dioxide 30 BUN 12 Creatinine 0.80 Glucose 99 Calcium 8.3 L Urine 03/06/25 Range/Units 10:54 Urine Color Yellow Urine Appearance Clear (Clear) Urine pH 7.0 (4.5-7.5) Ur Specific [place] 1.015 (1.000-1.030) Urine Protein Negative (Negative) Urine Glucose (UA) Negative (Negative) Medications Administered Current Inpatient Medications Acetaminophen (Acetaminophen 325 Mg Tab) 650 mg PO Q4H PRN PRN Reason: pain/fever Stop: 04/02/25 23:26 Last Admin: 03/06/25 03:00 Dose: 650 mg Aripiprazole (Aripiprazole 15 Mg Tab) 15 mg PO DAILY KAYODE Stop: 04/03/25 08:59 Last Admin: 03/06/25 08:10 Dose: 15 mg Aspirin (Aspirin 81 Mg Ectab) 81 mg PO DAILY KAYODE Stop: 04/03/25 08:59 Last Admin: 03/06/25 08:09 Dose: 81 mg Atorvastatin Calcium (Atorvastatin 10 Mg Tab) 10 mg PO HS KAYODE Stop: 04/02/25 23:26 Last Admin: 03/05/25 21:06 Dose: 10 mg Bisacodyl (Bisacodyl 10 Mg Supp) 10 mg [place] DAILY PRN PRN Reason: Constipation Stop: 04/02/25 23:26 Last Admin: 03/05/25 03:15 Dose: 10 mg Carbamazepine (Carbamazepine 100 Mg Chew Tab) 300 mg PO Q8 [facility] Stop: 04/02/25 23:26 Last Admin: 03/06/25 13:06 Dose: 300 mg Duloxetine HCl (Duloxetine Hcl 60 Mg Cap) 120 mg PO QAM [facility] Stop: 04/03/25 08:59 Last Admin: 03/06/25 08:10 Dose: 120 mg Lactated Ringer's (Lr) 1,000 mls @ 100 mls/hr IV .Q10H [facility] Stop: 03/07/25 07:00 Last Admin: 03/06/25 10:13 Dose: 100 mls/hr Ertapenem (Invanz 1000mg) 1,000 mg in 10 mls @ 2 mls/min IV Q24H [facility] Stop: 03/12/25 23:59 Last Admin: 03/06/25 13:06 Dose: 2 mls/min Lactulose (Lactulose Syrup 20 Gm/30 Ml Udc) 10 gm PO BID [facility]ODE Stop: 04/03/25 08:59 Last Admin: 03/06/25 08:09 Dose: 10 gm Levothyroxine Sodium (Levothyroxine Sodium 25 Mcg Tablet) 25 mcg PO DAILYBB [facility] Stop: 04/03/25 06:29 Last Admin: 03/06/25 05:48 Dose: 25 mcg Metoprolol Tartrate (Metoprolol Tartrate 50 Mg Tab) 50 mg PO BID [facility] Stop: 04/02/25 23:26 Last Admin: 03/06/25 08:10 Dose: Not Given Ondansetron HCl (Ondansetron Inj 2 Mg/Ml 2 Ml Vial) 4 mg IV Q6H PRN PRN Reason: Nausea Stop: 04/02/25 23:26 Polyethylene Glycol (Polyethylene (Miralax) 17 Gm Pack) 17 gm PO DAILY PRN PRN Reason: Constipation Stop: 04/02/25 23:26 Polyethylene Glycol (Polyethylene (Miralax) 17 Gm Pack) 17 gm PO BID [facility] Stop: 04/02/25 23:26 Last Admin: 03/06/25 08:13 Dose: 17 gm Senna/Docusate Sodium (Docusate Sodium/Senna 50/8.6mg Tab) 2 tab PO BID [facility] Stop: 04/02/25 23:26 Last Admin: 03/06/25 08:13 Dose: 2 tab Simethicone (Simethicone 80 Mg Chew) 80 mg PO Q6H PRN PRN Reason: Flatulence Stop: 04/04/25 09:54 Last Admin: 03/05/25 10:23 Dose: 80 mg Tamsulosin HCl (Tamsulosin Hcl 0.4 Mg Cap) 0.4 mg PO HS [facility] Stop: 04/02/25 23:26 Last Admin: 03/05/25 21:08 Dose: 0.4 mg
[2025-03-06] MEDS: HEPARIN SOD 5,000 UNIT/0.5 ML VIAL SQ SCH (21:07)
[2025-03-07] MEDS: SIMETHICONE 80 MG CHEW PO ONE (12:16)
--- NOTE | 2025-03-07 12:50 | Hospitalist Progress Note ---
Date of Service March 07, 2025 Assessment & Plan (1) Complicated urinary tract infection: (2) Chronic indwelling Gardner catheter: (3) Neurogenic bladder: (4) Hypothyroidism: (5) Schizophrenia: (6) COPD (chronic obstructive pulmonary disease): (7) Severe muscle deconditioning: (8) Hypothyroidism: Plan Patient 69-year-old gentleman who presented with some signs and symptoms of a urinary tract infection in the setting of chronic neurogenic bladder and Gardner catheter. Initial urine culture as multiple bacteria mixed growth, repeat urine culture pending Patient currently being treated with Ertapenem based on previous cultures. Repeat urine culture pending Communication with urological team today, suprapubic catheter rescheduled for March 27, 2025 Communication with case management plan to return to [facility] tomorrow, anticipate patient will have completed a course of antibiotics here in the hospital Trial of Mylicon scheduled for the patient's bloating and distention Patient also presented somewhat constipated. Having good bowel movements now, will need a Admission and Anticipated Discharge Date Admission Date: March 03, 2025 Subjective Patient overall states he is feeling improved. But does have a lot of bloating and gas. Nurse reports is having good bowel movements. Physical Exam Physical Exam: Constitutional: Alert, nontoxic HEENT: Mucous membranes moist. Lungs: Clear to auscultation, decreased, no wheezes rales or rhonchi CV: S1-S2, regular Abdomen: Soft, slightly distended, nontender, no guarding : Gardner catheter in place, clear yellow urine in bag Extremities: No significant edema Neuro: No focal deficits Psych: Cooperative, normal mood Results & Data Results & Data Vital Signs (Past 12 Hours) Vital Signs Temp Pulse Resp BP Pulse Ox O2 Del Method 03/07/25 07:26 Room Air 03/07/25 07:22 36.4 C L 62 16 135/78 96 Room Air Diagnostic Findings Reviewed imaging, laboratory and diagnostic studies. Pertinent findings as below. Repeat urine culture pending
[2025-03-07] MEDS: SIMETHICONE 80 MG CHEW PO SCH (13:59)
[2025-03-07 23:40] VITALS: TEMP 97.7
[2025-03-08 08:11] VITALS: BP 109/70; PULSE 66; RESP 16; O2SAT 96
--- NOTE | 2025-03-08 09:02 | Discharge Summary ---
Discharge Summary Date of Service March 08, 2025 Principal Dx & Hospital Course #1 = Principal Diagnosis (1) Complicated urinary tract infection: (2) Chronic indwelling Gardner catheter: (3) Neurogenic bladder: (4) Hypothyroidism: (5) Schizophrenia: (6) COPD (chronic obstructive pulmonary disease): (7) Severe muscle deconditioning: (8) Bacteriuria, chronic: Plan Patient 69-year-old gentleman presented to the emergency room from senior living facility with reports of rigors and fevers. Patient is paraplegic with chronic neurogenic bladder and chronic indwelling Gardner catheter. Patient was admitted to the hospital for sepsis due to presumed complicated urinary tract infection. Based on previous cultures patient was started on ertapenem. With these interventions the patient significantly improved. Initial urinary culture grew out mixed bacteria with no specific bacteria identified. Repeat urine culture again grew out multiple bacteria most likely is colonization of the bladder from his chronic indwelling Gardner catheter. Anticipate patient's urine will always grow bacteria. Urology consultation was obtained due to the fact that he would been scheduled to have a suprapubic catheter placed this week. Was evaluated by urology. They recommended postponing placement of the suprapubic catheter until he completes antibiotic treatment. On the day of discharge patient is feeling well. Has not had any fevers. Laboratory studies stabilized. He completed a course of antibiotics here in the hospital. Patient has some chronic abdominal disc tension and gas. This is treated with Mylicon. Also has been having good new bowel movements with a regular bowel regimen. This will be continued at the senior living facility. He be discharged to continue his care there follow-up with urology outpatient as scheduled in early March for suprapubic catheter placement. Notes For Next Care Provider Continue to evaluate if diuretics need to be restarted at some point Medication Changes From Visit Lasix held and discontinued Admission HPI Per Admitting Provider 69 yo male with pmhx of neurogenic bladder, moderate COPD, PVD, HTN, HLD, IBS, epilepsy [place], schizoaffective disorder, class II obesity, bedbound status living at [facility], who presents from [facility] for rigors. Has not had any recent admissions at [facility]. Of note, was to have suprapubic catheter placed next week. In the ED, given abx, fluids, admitted to medicine. Patient seen and examined at bedside. Patient is doing ok today. He states at [facility] was having rigors and strong shivers. Also was having fevers. Has had some abdominal discomfort over the past few days. Denies nausea, vomiting, chest pain, SOB, other symptoms. States it feels like a UTI. Some fatigue and worsening weakness as well. No alcohol use, no current tobacco use, no drug use, full code discussed with patient. Admission Exam Per Admitting Provider See H&P Discharge Exam Constitutional: Alert, nontoxic HEENT: Mucous membranes moist. Lungs: Clear to auscultation, decreased, no wheezes rales or rhonchi CV: S1-S2, regular Abdomen: Soft, nontender, nondistended Extremities: No significant edema Neuro: Lower extremity paraplegia, chronic Psych: Cooperative, normal mood Updated Medication List Medication Instructions Recorded Confirmed Type folic acid 1 mg tablet 1 mg PO QAM 07/21/20 01/31/25 History tamsulosin 0.4 mg capsule 0.4 mg PO HS #0 caps 08/23/20 01/31/25 Rx ascorbic acid (vitamin C) 500 mg 500 mg PO QAM 03/14/21 01/31/25 History capsule atorvastatin 10 mg tablet 10 mg PO HS 03/14/21 01/31/25 History furosemide 40 mg tablet 40 mg PO QAM 03/14/21 01/31/25 History metoprolol tartrate 50 mg tablet 50 mg PO BID 03/14/21 01/31/25 History potassium chloride 20 mEq 40 meq PO BID 03/14/21 01/31/25 History tablet,extended release(part/cryst) acetaminophen 325 mg tablet 650 mg (2 x 325 mg) PO Q4H PRN 03/18/21 01/31/25 Rx fever or pain #30 tabs levothyroxine 25 mcg tablet 25 mcg PO QAM 06/28/21 01/31/25 History timolol 0.5 % eye drops 1 drp ophthalmic (eye) DAILY 08/05/21 01/31/25 History aspirin 81 mg tablet,delayed 81 mg PO DAILY 08/13/21 01/31/25 History release (Corinne Low Dose Aspirin) bisacodyl 10 mg rectal suppository 10 mg NC DAILY PRN Constipation 08/13/21 01/31/25 History (Dulcolax (bisacodyl)) cyanocobalamin (vitamin B-12) 1,000 mcg subcut MONTHLY 08/13/21 01/31/25 History 1,000 mcg/mL injection kit polyethylene glycol 3350 17 17 g PO BID 08/13/21 01/31/25 History gram/dose oral powder (Miralax) ondansetron HCl 4 mg tablet 4 mg PO Q6H PRN Nausea 08/19/21 01/31/25 History carbamazepine 100 mg 300 mg PO Q8 08/04/22 01/31/25 History tablet,extended release,12 hr magnesium hydroxide 400 mg/5 mL 30 ml PO DIRECTED PRN 08/04/22 01/31/25 History oral suspension Constipation, NO BM X 3 DAYS duloxetine 60 mg capsule,delayed 120 mg PO QAM 01/26/23 01/31/25 History release (Cymbalta) aripiprazole 15 mg tablet (Abilify) 15 mg PO DAILY 05/12/23 01/31/25 History ammonium lactate 12 % lotion 1 applic topical BID 10/04/24 01/31/25 History cholecalciferol (vitamin D3) 50 50 mcg PO DAILY 10/04/24 01/31/25 History mcg (2,000 unit) capsule (Vitamin D3) doxycycline hyclate 100 mg tablet 100 mg PO BID 10/04/24 01/31/25 History sennosides 8.6 mg-docusate sodium 2 tab-cap PO BID 10/04/24 01/31/25 History 50 mg tablet (Senna-S) simethicone 125 mg capsule 125 mg PO TID 10/04/24 01/31/25 History diphenhydramine HCl 25 mg capsule 50 mg PO QID PRN itching/hives 01/31/25 01/31/25 History (Benadryl) lactulose 10 gram/15 mL oral 15 ml PO BID 01/31/25 01/31/25 History solution tenapanor 50 mg tablet (Ibsrela) 50 mg PO BID 01/31/25 01/31/25 History Hospital Stay Data Consultations 03/03/25 18:18 ED Decision to Admit Stat 03/03/25 20:26 Consult Urology Routine Diagnostic Imagining Performed Reviewed imaging, laboratory and diagnostic studies. Pertinent findings as below. Blood cultures no growth Urine culture x 2 showed mixed bacterial growth WBCs 5.4 Hemoglobin 10.4 Platelets of 164 Electrolytes within normal range Creatinine 0.80 Pending Results Patient Have Any Pending Studies at Discharge: No Discharge Instructions Given to Patient (Per Discharging Provider) Coordinate outpatient suprapubic catheter placement with Dr. Sharp, anticipated March 27, 2025 Resume your activities and therapies Total Time Total Time Spent Total Time Spent (In Minutes): 32
== END 2025-03-08 11:49 | DRG 872 ==
LOC: ED 15:22 → 3E 18:18 → SUATTDRO 18:18 → 3E 22:21